=== PATIENT | female | born 1950 | race Caucasian/White ===

== ENCOUNTER → 2017-04-23 | Outpatient (CLI) | payer MEDICARE, MEDICAID ==
[~2017-04-23] MED LIST: FLUO40CA12; HEART BURN MED; HYDR-707 PO; HYOS0.1216 PO; LPRM1B120 PO; PRM25T PO; SYNTHROID
--- NOTE | 2017-04-23 20:26 | Diagnostic Imaging Report ---
Bilateral screening mammogram 2D views with tomosynthesis The current study was also evaluated with a Computer Aided Detection (CAD) system. Indication: Screening. No current complaints stated on the questionnaire. COMPARISON: 04/22/16 FINDINGS: The breasts are composed of scattered fibroglandular densities. There are occasional benign-appearing calcifications. Allowing for technique and positional differences, no suspicious change is seen. IMPRESSION: No significant change. ACR BI-RADS Category 2: Benign findings. Result letter will be mailed to the patient. Note: At least 10% of breast cancer is not imaged by mammography. Dictated by: Dictated on workstation # [id number]
== END ==
LOC: RAD 09:24
PROVIDERS: ATTEND Nurse Practitioner Community Health
DX: Z12.31 Encounter for screening mammogram for malignant neoplasm of breast (principal)
CPT/HCPCS: 77067

== ENCOUNTER → 2018-04-30 | Outpatient (CLI) | payer MEDICARE, MEDICAID ==
--- NOTE | 2018-04-30 19:54 | Diagnostic Imaging Report ---
Digital mammogram bilateral screening. This study was compared to the prior exams of 04/23/2017, 04/22/2016, and 04/19/2015. At this time, there are no current complaints. The current study was also evaluated with a Computer Aided Detection (CAD) system. 3-D tomosynthesis was also performed and reviewed. FINDINGS: There is a mild amount of fibroglandular tissue present in both breasts, similar to the prior exam. No primary or secondary sign of malignancy is noted. IMPRESSION: There is no radiographic evidence for malignancy. ACR BI-RADS Category 2: Benign findings. Result letter will be mailed to the patient. Note: At least 10% of breast cancer is not imaged by mammography. Dictated by: Dictated on workstation # [id number]
== END ==
LOC: RAD 09:52
PROVIDERS: ATTEND Nurse Practitioner Community Health
DX: Z12.31 Encounter for screening mammogram for malignant neoplasm of breast (principal)
CPT/HCPCS: 77067

== ENCOUNTER → 2018-12-02 | Outpatient (CLI) | payer MEDICARE, MEDICAID | LOC: WOUNDCARE 08:02 | PROVIDERS: ATTEND Nurse Practitioner | DX: L97.222 Non-pressure chronic ulcer of left calf with fat layer exposed (principal); I87.2 Venous insufficiency (chronic) (peripheral); L89.323 Pressure ulcer of left buttock, stage 3 | CPT/HCPCS: 87070; 87075; 87077; 87186; 87205; 99214 ==

== ENCOUNTER → 2018-12-09 | Outpatient (CLI) | payer MEDICARE, MEDICAID | LOC: WOUNDCARE 08:14 | PROVIDERS: ATTEND Nurse Practitioner | DX: L97.221 Non-pressure chronic ulcer of left calf limited to breakdown of skin (principal); L89.323 Pressure ulcer of left buttock, stage 3; I87.2 Venous insufficiency (chronic) (peripheral) | CPT/HCPCS: 97597 ==

== ENCOUNTER → 2018-12-16 | Outpatient (CLI) | payer MEDICARE, MEDICAID | LOC: WOUNDCARE 08:04 | PROVIDERS: ATTEND Nurse Practitioner | DX: L97.221 Non-pressure chronic ulcer of left calf limited to breakdown of skin (principal); L89.323 Pressure ulcer of left buttock, stage 3; I87.2 Venous insufficiency (chronic) (peripheral) | CPT/HCPCS: 99213 ==

== ENCOUNTER → 2018-12-23 | Outpatient (CLI) | payer MEDICARE, MEDICAID | LOC: WOUNDCARE 10:46 | PROVIDERS: ATTEND Nurse Practitioner | DX: L97.221 Non-pressure chronic ulcer of left calf limited to breakdown of skin (principal); L89.323 Pressure ulcer of left buttock, stage 3; I87.2 Venous insufficiency (chronic) (peripheral) | CPT/HCPCS: 99213 ==

== ENCOUNTER → 2018-12-30 | Outpatient (CLI) | payer MEDICARE, MEDICAID | LOC: WOUNDCARE 10:59 | PROVIDERS: ATTEND Nurse Practitioner | DX: L97.221 Non-pressure chronic ulcer of left calf limited to breakdown of skin (principal); L89.323 Pressure ulcer of left buttock, stage 3; I87.2 Venous insufficiency (chronic) (peripheral) | CPT/HCPCS: 99212 ==

== ENCOUNTER → 2019-03-22 | Outpatient (CLI) | payer MEDICARE, MEDICAID ==
--- NOTE | 2019-03-22 16:06 | Diagnostic Imaging Report ---
INDICATION: Postmenopausal screening COMPARISON: Baseline FINDINGS: AP Spine L1-L4: [BMD (g/cm2): 1.224] [T-Score: 0.2] [Z-Score: 0.7] [BMD Previous: na] [BMD % Change: na] LT Hip Neck: [BMD (g/cm2): 0.798] [T-Score: -1.7] [Z-Score: -0.9] LT Hip Total: [BMD (g/cm2):0.965] [T-Score:-0.3] [Z-Score: 0.2] [BMD Previous: na] [BMD % Change: na] RT Hip Neck: [BMD (g/cm2):0.819] [T-Score:-1.6] [Z-Score:-0.7] RT Hip Total: [BMD (g/cm2):0.876] [T-score:-1.0] [Z-Score:-0.5] [BMD Previous:na] [BMD % Change:na] *Indicates significant change from prior examination based on 95% confidence level. World Health Organization criteria for BMD interpretation classify patients as Normal (T-score at or above -1.0), Osteopenic (T-score between -1.0 and -2.5) or Osteoporotic (T-score at or below -2.5). LIMITATIONS AND MODIFICATION: None. FRACTURE RISK (FRAX SCORE): The ten year probability of (%): Major Osteoporotic Fracture: [9.2] Hip Fracture: [1.3] IMPRESSION: 1. Osteopenia (Low bone mass). 2. Baseline examination. 3. See below National Osteoporosis Foundation guidelines on when to potentially initiate pharmacologic therapy. Based on the National Osteoporosis Foundation Guidelines, pharmacologic treatment should be initiated in any of the following, unless clinical conditions suggest otherwise: * Any patient with prior fragility fracture of the hip or vertebrae. A spine fracture indicates 5X risk for subsequent spine fracture and 2X risk for subsequent hip fracture. * Osteoporosis (T-score <-2.5). * Postmenopausal women and men age 50 and older with low bone mass/osteopenia (T-score between -1.0 and -2.5) by DXA and 10-year major osteoporotic fracture greater than 20% or a 10-year probability of hip fracture greater than 3%. These fracture risks are supplied above in the FRAX score, if applicable. * Clinician judgement and/or patient preferences may indicate treatment for people with 10-year fracture probabilities above or below these levels. Dictated by: Dictated on workstation # [id number]
== END ==
LOC: RAD 10:55
PROVIDERS: ATTEND Nurse Practitioner Community Health
DX: Z13.820 Encounter for screening for osteoporosis (principal); N95.1 Menopausal and female climacteric states; M85.89 Other specified disorders of bone density and structure, multiple sites
CPT/HCPCS: 77080

== ENCOUNTER → 2019-05-13 | Outpatient (CLI) | payer MEDICARE, MEDICAID ==
--- NOTE | 2019-05-13 10:54 | Diagnostic Imaging Report ---
Indication: Routine screening. Comparison is made with prior mammogram from 04/30/2018 and 04/23/2017. 2-D and 3-D bilateral screening mammography was performed with CAD. Scattered fibroglandular densities are identified bilaterally. Benign calcifications are noted. No mass or malignant-appearing microcalcifications are seen. Axillae are unremarkable. IMPRESSION: BI-RADS Category 2 No mammographic features suspicious for malignancy are identified. ACR BI-RADS Category 2: Benign findings. Result letter will be mailed to the patient. Note: At least 10% of breast cancer is not imaged by mammography. Dictated by: Dictated on workstation # [id number]
== END ==
LOC: RAD 07:41
PROVIDERS: ATTEND Nurse Practitioner Community Health
DX: Z12.31 Encounter for screening mammogram for malignant neoplasm of breast (principal)
CPT/HCPCS: 77067

== ENCOUNTER → 2019-09-21 | Outpatient (CLI) | payer MEDICARE, MEDICAID ==
[~2019-09-21] MED LIST changes: +HOLD METFORMIN - RECEIVED CONTRAST 20 ML VIAL IV SCH; +IOHEXOL 350 MG/ML 100 ML (OMNIPAQUE 350) VIAL IV ONE; +NS 100 ML (IVPB) BAG IV ONE
--- NOTE | 2019-09-21 08:11 | Diagnostic Imaging Report ---
PROCEDURE: CT head with and without contrast. TECHNIQUE: Multiple contiguous axial images were obtained through the brain before and after the administration of intravenous contrast. Auto Exposure Controls were utilized during the CT exam to meet ALARA standards for radiation dose reduction. INDICATION: Dictated by: Dictated on workstation # [id number]
== END ==
LOC: RAD 06:33
PROVIDERS: ATTEND Nurse Practitioner Community Health
DX: F28 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 due to a substance or known physiological condition (principal); R29.6 Repeated falls
CPT/HCPCS: 36415; 70470; 82565

== ENCOUNTER 2020-02-16 07:18 | Outpatient (RCR) | payer MEDICARE, MEDICAID ==
[~2020-02-16] VITALS: Ht 165.1 cm; Wt 109.1 kg
[~2020-02-16 07:18] MED LIST changes: +FLUO10TA PO; -HOLD METFORMIN - RECEIVED CONTRAST 20 ML VIAL IV SCH; -IOHEXOL 350 MG/ML 100 ML (OMNIPAQUE 350) VIAL IV ONE; +LEVO112T55 PO; +LOVA20TA2 PO; -NS 100 ML (IVPB) BAG IV ONE; +OMEP20CA18 PO; +TRZ50T PO
== END 2020-02-16 10:34 | disposition home or self-care (01) ==
LOC: PREOP 07:18
PROVIDERS: ATTEND Surgery
DX: Z01.812 Encounter for preprocedural laboratory examination (principal); R13.10 Dysphagia, unspecified; Z20.828 Contact with and (suspected) exposure to other viral communicable diseases
CPT/HCPCS: 87635

== ENCOUNTER 2020-02-21 10:12 | Day surgery (SDC) | payer MEDICARE, MEDICAID ==
[~2020-02-21] VITALS: Ht 165.1 cm; Wt 109.1 kg
[2020-02-21] MEDS ORDERED: LACTATED RINGERS 1,000 ML IV STA (10:20)
[2020-02-21] MEDS ORDERED: LACTATED RINGERS 1,000 ML IV ONE (10:25)
[2020-02-21 10:27] VITALS: BP 140/83
[2020-02-21] MEDS ORDERED: HURRICAINE EXT TUBE (BENZOCAINE) XX PRN (10:30)
--- NOTE | 2020-02-21 10:54 | Progress Note-Pre Operative ---
Pre-Operative Progress Note H&P Reviewed The H&P was reviewed, patient examined and no changes noted. Date Seen by Provider: Feb 21, 2020 Time Seen by Provider: 10:54 Date H&P Reviewed: Feb 21, 2020 Time H&P Reviewed: 10:54 Pre-Operative Diagnosis: dysphagia KRAIG PALOMO DO Feb 21, 2020 10:54
--- OUTSIDE RECORDS SUMMARY | 2020-02-21 11:41 | XMS REPORT ---
Author Author [facility] Address [address] [address] Care Team Providers Care Senior Reservoir Engineer Name Role Phone CHARLOTTE STANLEY Unavailable Unavailable DELROY, ROMA Unavailable Unavailable SALINA, ALONZO Unavailable Unavailable MICHAELA WAYEN Unavailable Unavailable BOLIVAR HOOPER Unavailable Unavailable DELROY, ROMA Unavailable DELROY, ROMA Unavailable DELROY, ROMA Unavailable DELROY, ROMA Unavailable DELROY, ROMA Unavailable KENNETH [place] Unavailable SALINA, ALONZO Unavailable DELROY, ROMA Unavailable DELROY, ROMA Unavailable DELROY, ROMA Unavailable DELROY, ROMA Unavailable SALINA, ALONZO Unavailable DELROY, ROMA Unavailable DELROY, ROMA Unavailable DELROY, ROMA Unavailable DELROY, ROMA Unavailable DELROY, ROMA Unavailable SALINA, ALONZO Unavailable DELROY, ROMA Unavailable DELROY, ROMA Unavailable SALINA, ALONZO Unavailable DELROY, ROMA Unavailable Migration, Doctor Unavailable Unavailable DELROY, ROMA S Unavailable Unavailable DELROY, ROMA CULINARY WORKER Unavailable Unavailable JAY HOOPER LAST SAWYER Unavailable Unavailable STANLEY PORTER CULINARY WORKER Unavailable Unavailable DELROY, ROMA Unavailable DELROY, ROMA Unavailable Migration, Doctor Unavailable Unavailable Migration, Doctor Unavailable Unavailable DELROY, ROMA Unavailable DELROY, ROMA Unavailable DELROY, ROMA Unavailable DELROY, ROMA Unavailable DELROY, ROMA Unavailable DELROY, ROMA Unavailable DELROY, ROMA Unavailable DELROY, ROMA Unavailable DELROY, ROMA Unavailable DELROY CULINARY WORKER, ROMA Unavailable Unavailable DELROY, ROMA Unavailable Unavailable Unavailable DELROY, ROMA Unavailable DELROY, ROMA Unavailable DELROY, ROMA Unavailable DELROY, ROMA Unavailable Migration, Doctor Unavailable Unavailable DELROY, ROMA Unavailable DELROY, ROMA Unavailable DELROY, ROMA Unavailable DELROY, ROMA Unavailable DELROY, ROMA Unavailable DELROY, ROMA Unavailable Migration, Doctor Unavailable Unavailable Migration, Doctor Unavailable Unavailable zzHEIMAN, ARIELLA Unavailable zzHEIMAN, ARIELLA Unavailable KRAIG PALOMO DO Unavailable Unavailable DELROY, ROMA Unavailable DELROY, ROMA Unavailable Unavailable Unavailable Unavailable Unavailable Unavailable Unavailable Unavailable Unavailable Unavailable Unavailable Allergies The data below is from unstructured sourcesNo Known Allergies No Known Allergies No Known Allergies No Known Allergies No Known Allergies No Known Allergies No Known Allergies No Known Allergies No Known Allergies No Known Allergies No Known Allergies No Known Allergies No Known Allergies No Known Allergies No Known Allergies No Known Allergies No Known Allergies No Known Allergies No Known Allergies No Known Allergies No Known Allergies No Known Allergies No Known Allergies Unknown Allergies Unknown Allergies No Information No Information No Information No Information No Information No Information No Information No Information No Information No Information No Information No Information No Information No Information No Information No Information No Information No Information No Information No Information No Information No Information No Information No Information No Information No Information No Information No Information No Information No Information No Information No Information No Information No Information No Information No Information No Information No Information No Information No Information No Information No Information No Information No Information No Information No Information No Information No Information No Information No Information No Information No Information No Information No Information No Information No Information Encounters Encounter Date Encounter Type Encounter Diagnosis Care Provider Facility Start: Patient encounter KRAIG BAUMANNBAR DO [facility] 02-16-2020 [facility] End: 02-16-2020 Start: Patient encounter KRAIG Mccoy PALOMO DO [facility] 02-15-2020 [facility] Start: Patient encounter KRAIG Mccoy PALOMO DO [facility] 02-14-2020 [facility]: [facility]: [facility]2019 [facility]: [facility] 10-13[facility]2019 [facility] Start: [facility] 10-06-2019 [facility]: [facility] Start: Patient encounter ROMA POTTS [facility] 09-21-2019 procedure [facility] Start: Patient encounter ROMA POTTS [facility] 09-14-2019 procedure [facility] Start: Patient encounter GREGORIA KINNEY [facility] 09-07-2019 [facility] Start: Patient encounter ROMA POTTS [facility] 05-23-2019 procedure [facility] ([id number]) Start: Patient encounter ROMA POTTS [facility] 05-19-2019 procedure [facility] ([id number]) Start: Patient encounter ROMA POTTS [facility] 05-16-2019 [facility] ([id number]) Start: Patient encounter ROMA POTTS [facility] 05-13-2019 procedure [facility] ([id number]) Start: Patient encounter ROMA POTTS [facility] 05-11-2019 procedure [facility] ([id number]) Start: Patient encounter ROMA ALANIZAN [facility] 03-22-2019 procedure [facility] ([id number]) Start: Patient encounter ROMA DELROY [facility] 03-22-2019 procedure [facility] ([id number]) Start: Patient encounter ROMA POTTS [facility] 02-24-2019 procedure [facility] ([id number]) Start: Patient encounter ROMA POTTS [facility] 01-26-2019 procedure [facility] ([id number]) Start: Patient encounter JAY SANDIE [facility] 12-30-2018 procedure [facility] ([id number]) Start: Patient encounter JAY SANDIE [facility] 12-30-2018 procedure [facility] ([id number]) Start: Patient encounter JAY SANDIE [facility] 12-23-2018 procedure [facility] ([id number]) Start: Patient encounter JAY SANDIE [facility] 12-16-2018 procedure [facility] ([id number]) Start: Patient encounter JAY SANDIE [facility] 12-16-2018 procedure [facility] ([id number]) Start: Patient encounter JAY SANDIE [facility] 12-09-2018 procedure [facility] ([id number]) Start: Patient encounter JAY SANDIE [facility] 12-09-2018 procedure [facility] ([id number]) Start: Patient encounter JAY SANDIE [facility] 12-02-2018 procedure [facility] ([id number]) Start: Patient encounter JAY SANDIE [facility] 12-02-2018 procedure [facility] ([id number]) Start: Patient encounter ROMA DELROY [facility] 12-01-2018 procedure [facility] ([id number]) Start: Patient encounter ROMA DELROY [facility] 11-29-2018 procedure [facility] ([id number]) Start: Patient encounter ROMA DELROY [facility] 11-24-2018 procedure [facility] ([id number]) Start: Patient encounter ROMA DELROY [facility] 11-22-2018 procedure [facility] ([id number]) Start: Patient encounter ROMA DELROY [facility] 11-15-2018 procedure [facility] ([id number]) Start: Patient encounter ROMA DELROY [facility] 11-08-2018 procedure [facility] ([id number]) Start: Patient encounter ROMA DELROY [facility] 11-05-2018 procedure [facility] ([id number]) Start: Patient encounter ROMA DELROY [facility] 11-03-2018 procedure [facility] ([id number]) Start: Patient encounter ROMA DELROY [facility] 10-28-2018 procedure [facility] ([id number]) Start: Patient encounter ROMA DELROY [facility] 10-27-2018 procedure [facility] ([id number]) Start: Patient encounter ROMA DELROY [facility] 10-25-2018 procedure [facility] ([id number]) Start: Patient encounter ROMA DELROY [facility] 10-22-2018 procedure [facility] ([id number]) Start: Patient encounter ROMA POTTS [facility] 10-20-2018 procedure [facility] (51869) Start: Patient encounter ROMA POTTS [facility] 10-13-2018 procedure [facility] ([id number]) Start: Patient encounter ROMA POTTS [facility] 10-11-2018 procedure [facility] ([id number]) Start: Patient encounter ROMA POTTS [facility] 10-08-2018 procedure [facility] ([id number]) Start: Patient encounter ROMA POTTS [facility] 10-06-2018 procedure [facility] ([id number]) Start: Patient encounter ROMA POTTS [facility] 09-27-2018 procedure [facility] ([id number]) Start: Patient encounter ROMA POTTS [facility] 09-15-2018 procedure [facility] ([id number]) Start: Patient encounter ROMA POTTS [facility] 07-01-2018 procedure [facility] ([id number]) Start: Patient encounter 04-30-2018 procedure Start: Patient encounter 03-10-2018 procedure Start: Patient encounter NA NA Not [facility] ([id number]) 03-03-2018 procedure Start: Patient encounter 01-12-2018 procedure Start: Patient encounter ROMA POTTS [facility] 12-31-2017 procedure [facility] ([id number]) Start: Patient encounter NA NA [facility] 11-09-2017 procedure [facility] (92553) Start: Patient encounter ROMA POTTS [facility] 09-10-2017 procedure [facility] ([id number]) Start: Patient encounter ROMA POTTS Not [facility] ([id number]) 04-23-2017 procedure Start: Patient encounter STANLEY PORTER Not [facility]ail able ([id number]) 04-22-2016 procedure Start: Patient encounter ROMA DELROY Not [facility] ([id number]) 04-19-2015 procedure Start: Patient encounter ROMAANTOLIN ALANIZAN Not [facility] ([id number]) 04-05-2014 procedure Start: Patient encounter ARIELLA ANDUJAR Not [facility] ([id number]) 03-02-2013 procedure Patient encounter NA NA Not Available (0000 0) procedure Encounter for KRAIG PALOMO DO [facility] laboratory ([id number]) examination Medical Equipment No Information Goals No Information Immunizations Immunizatio Immunization Notes Care Provider Facility n Date 05-09-2019 influenza, seasonal, NA NA [facility] ([id number]) 04-26-2018 influenza, seasonal, [facility] DELROY [facility] Other Phone: [facility] ([id number]) 04-26-2018 pneumococcal NA NA Not Available ( 95825) polysaccharide vaccine, 23 valent ; Translations: [PPSV23 (PNEUMOVAX)] 04-26-2018 influenza, injectable, NA NA [facility] quadrivalent, [facility] - preservative free ; [facility] Translations: (88972) [IMMUNIZATION ADMIN, EACH ADD (please include units)] 05-12-2017 influenza, injectable, NA NA Not Av ail[facility] (87590) quadrivalent, preservative free Interventions No Information Medications Medication Drug Dates Sig Sig (Original) Class(es) (Normalized) mupirocin 0.02 mg/mg RNA Start: Mupirocin 2 % Externally Once a day 4 topical ointment Synthetase 09-27-2018 grm to affect ed area 24h Sep, 7 (2 sources) Inhibitor days Active Antibacter ial Payers No Information Plan of Treatment Date Care Activity Detail Author Start: [facility] 10-13-2019 Start: [facility] 02-24-2019 Start: [facility] 10-28-2018 Start: [facility] 07-01-2018 Problems Problem Problem Date Last Documented Episodic/Chr Provider Classificati Recorded Date onic on Other bone Other specified disorders of bone Episodic ROMA disease and density and structure, multiple CHERYL NNAN musculoskele sites geno deformities (3 sources) Other Venous insufficiency (chronic) Episodic JAY diseases of (peripheral) SANDIE veins and lymphatics (16 sources) Other Dysphagia, unspecified 02-20-2020 Episodic CHERYL TT PALOMO gastrointest DO inal disorders (1 source) Procedures Date Procedure Procedure Detail Performing Cl inician Start: [facility] visit, estab ROMA POTTS 10-20-2018 pt Other Phone: Start: [facility] visit, estab ROMA POTTS 10-06-2018 pt Other Phone: Start: [facility] visit, estab ROMA POTTS 09-15-2018 pt Other Phone: Start: [facility] visit, estab ALONZO DOWNING 07-01-2018 pt Other Phone: Start: Admin pneumococcal ROMA POTTS 04-26-2018 vaccine Other Phone: Start: [facility] visit, estab ROMA POTTS 04-26-2018 pt Other Phone: Start: [facility] visit, ronna DOWNING 04-01-2018 pt Other Phone: Start: Collection venous ROMA POTTS 03-10-2018 blood venipuncture Other Start: LAB NOT BILLED BY ROMA POTTS 03-10-2018 [facility] Other Phone: Start: [facility] visit, estab ROMA POTTS 03-03-2018 pt Other Phone: Results Test Name Value Interpreta Reference Facilit Date tion Range y Time laboratory on 2020-02-16 Coronavirus Ab Qn Negative Invalid Negative PENDING 02-15 (S) Interpreta LOCATIO 020 tion Code N [facility] 04:00-0 ([id number]) 400 laboratory on 2020-01-11 Albumin [Mass/Vol] 3.7 g/dL Normal 3.6-5.1 Communi g/dL [facility] ([id number]) Albumin/Globulin 1.1 {ratio} Normal 1.0-2.5 Communi [Mass ratio] (calc) [facility] (12552) ALP [Catalytic 106 U/L Normal 37-153 U/L Communi activity/Vol] [facility] (35531) ALT [Catalytic 9 U/L Normal 6-29 U/L Communi activity/Vol] [facility] (47915) AST [Catalytic 19 U/L Normal 10-35 U/L Communi activity/Vol] [facility] (61824) Bilirubin [Mass/Vol] 0.5 mg/dL Normal 0.2-1.2 Commu ni mg/dL [facility] (92290) Calcium [Mass/Vol] 9.4 mg/dL Normal 8.6-10.4 Communi mg/dL [facility] (32420) Chloride [Moles/Vol] 100 mmol/L Normal 98-110 Commu ni mmol/L [facility] (12632) Cholesterol 158 mg/dL Normal <200 mg/dL Communi [Mass/Vol] [facility] (67829) Cholesterol in HDL 36 mg/dL Low > OR = 50 Communi [Mass/Vol] mg/dL [facility] (01883) Cholesterol in LDL 105 mg/dL High mg/dL Communi [Mass/Vol] (calc) [facility] (76079) Cholesterol non HDL 122 mg/dL Normal <130 mg/dL Commun i [Mass/Vol] (calc) [facility] (67725) Cholesterol.total/Ch 4.4 {ratio} Normal <5.0 Commu ni olesterol in HDL (calc) ty [Mass ratio] [facility] (99438) CO2 [Moles/Vol] 31 mmol/L Normal 20-32 Communi mmol/L [facility] (74680) Creatinine 0.73 mg/dL Normal 0.50-0.99 Communi [Mass/Vol] mg/dL [facility] (20764) GFR/1.73 sq 97 mL/min/{1.73_m2} Normal > OR = 60 Commun i M.predicted among mL/min/1.7 ty blacks MDRD 3m2 Health (S/P/Bld) [Vol Center rate/Area] [facility] (15275) GFR/1.73 sq 84 mL/min/{1.73_m2} Normal > OR = 60 Commun i M.predicted MDRD mL/min/1.7 ty (S/P/Bld) [Vol 3m2 Health rate/Area] [facility] (98106) Globulin (S) 3.4 g/dL Normal 1.9-3.7 Communi [Mass/Vol] g/dL ty (calc) [facility] (79048) Glucose [Mass/Vol] 86 mg/dL Normal 65-99 Communi mg/dL ty [facility] (14148) Potassium 4.1 mmol/L Normal 3.5-5.3 Communi [Moles/Vol] mmol/L ty [facility] (52456) Protein [Mass/Vol] 7.1 g/dL Normal 6.1-8.1 Communi g/dL ty [facility] (89654) Sodium [Moles/Vol] 139 mmol/L Normal 135-146 Communi mmol/L ty [facility] (37230) Triglyceride 81 mg/dL Normal <150 mg/dL Communi [Mass/Vol] ty [facility] (41023) Urea nitrogen 13 mg/dL Normal 7-25 mg/dL Communi [Mass/Vol] ty [facility] (61930) Urea NOT APPLICABLE Invalid 6-22 Communi nitrogen/Creatinine Interpreta (calc) ty [Mass ratio] tion Code [facility] (43324) laboratory on 2019-09-07 TSH Qn 4.06 m[IU]/L Normal 0.40-4.50 Communi mIU/L ty [facility] (73264) laboratory on 2019-01-26 Albumin [Mass/Vol] 3.7 g/dL Normal 3.6-5.1 Communi g/dL ty [facility] (56156) Albumin/Globulin 1.1 {ratio} Normal 1.0-2.5 Communi [Mass ratio] (calc) ty [facility] (71110) ALP [Catalytic 87 U/L Normal 33-130 U/L Communi activity/Vol] [facility] (81834) ALT [Catalytic 9 U/L Normal 6-29 U/L Communi activity/Vol] [facility] (76408) AST [Catalytic 21 U/L Normal 10-35 U/L Communi activity/Vol] ty [facility] (48875) Bilirubin [Mass/Vol] 0.5 mg/dL Normal 0.2-1.2 Commu ni mg/dL [facility] (26199) Calcium [Mass/Vol] 8.9 mg/dL Normal 8.6-10.4 Communi mg/dL [facility] (22730) Chloride [Moles/Vol] 102 mmol/L Normal 98-110 Commu ni mmol/L [facility] (15446) Cholesterol 154 mg/dL Normal <200 mg/dL Communi [Mass/Vol] ty [facility] (92650) Cholesterol in HDL 38 mg/dL Low >50 mg/dL Communi [Mass/Vol] [facility] (84371) Cholesterol in LDL 101 mg/dL High mg/dL Communi [Mass/Vol] (calc) [facility] (13531) Cholesterol non HDL 116 mg/dL Normal <130 mg/dL Commun i [Mass/Vol] (calc) [facility] (58919) Cholesterol.total/Ch 4.1 {ratio} Normal <5.0 Commu ni olesterol in HDL (calc) ty [Mass ratio] [facility] (86550) CO2 [Moles/Vol] 33 mmol/L High 20-32 Communi mmol/L [facility] (41531) Creatinine 0.85 mg/dL Normal 0.50-0.99 Communi [Mass/Vol] mg/dL [facility] (62264) GFR/1.73 sq 82 mL/min/{1.73_m2} Normal > OR = 60 Commun i M.predicted among mL/min/1.7 ty blacks MDRD 2 Health (S/P/Bld) [Vol [place] rate/Area] [facility] (82634) GFR/1.73 sq 70 mL/min/{1.73_m2} Normal > OR = 60 Commun i M.predicted MDRD mL/min/1.7 ty (S/P/Bld) [Vol 2 Health rate/Area] [facility] (07375) Globulin (S) 3.3 g/dL Normal 1.9-3.7 Communi [Mass/Vol] g/dL ty (calc) [facility] (85680) Glucose [Mass/Vol] 94 mg/dL Normal 65-99 Communi mg/dL ty [facility] (73500) Potassium 4.1 mmol/L Normal 3.5-5.3 Communi [Moles/Vol] mmol/L ty [facility] (61025) Protein [Mass/Vol] 7.0 g/dL Normal 6.1-8.1 Communi g/dL ty [facility] (93063) Sodium [Moles/Vol] 139 mmol/L Normal 135-146 Communi mmol/L ty [facility] (53590) Triglyceride 67 mg/dL Normal <150 mg/dL Communi [Mass/Vol] ty [facility] (50225) Urea nitrogen 12 mg/dL Normal 7-25 mg/dL Communi [Mass/Vol] ty [facility] (41553) Urea NOT APPLICABLE Invalid 6-22 Communi nitrogen/Creatinine Interpreta (calc) [facility] on 2018-12-01 Bacteria identified SEE NOTE Abnormal Communi Aer cx Nom (Unsp ty spec) [facility] (30287) Bacteria identified SEE NOTE Invalid Communi Anaer cx Nom (Unsp Interpreta ty spec) [facility] (85466[facility] laboratory on 2017-11-09 Albumin [Mass/Vol] 4.0 g/dL Normal 3.6-5.1 Communi g/dL [facility] (37460) Albumin/Globulin 1.2 {ratio} Normal 1.0-2.5 Communi [Mass ratio] (calc) [facility] (41069) ALP [Catalytic 94 U/L Normal 33-130 U/L Communi activity/Vol] [facility] (78259) ALT [Catalytic 10 U/L Normal 6-29 U/L Communi activity/Vol] [facility] (88279) AST [Catalytic 20 U/L Normal 10-35 U/L Communi activity/Vol] [facility] (83315) Basophils (Bld) 0.048 10*3/uL Normal 0-200 Not [#/Vol] cells/uL [facility] (37582) Basophils/100 WBC 0.7 % Normal % Not (Bld) [facility] (31789) Bilirubin [Mass/Vol] 0.5 mg/dL Normal 0.2-1.2 Commu ni mg/dL [facility] (86973) Calcium [Mass/Vol] 9.0 mg/dL Normal 8.6-10.4 Communi mg/dL [facility] (89629) Chloride [Moles/Vol] 100 mmol/L Normal 98-110 Commu ni mmol/L [facility] (08725) Cholesterol 137 mg/dL Normal <200 mg/dL Not [Mass/Vol] [facility] (19140) Cholesterol in HDL 35 mg/dL Low >50 mg/dL Not [Mass/Vol] [facility] (01531) Cholesterol in LDL 87 mg/dL Normal mg/dL Not [Mass/Vol] (calc) [facility] (39060) Cholesterol non HDL 102 mg/dL Normal <130 mg/dL Not [Mass/Vol] (calc) [facility] (75360) Cholesterol.total/Ch 3.9 {ratio} Normal <5.0 Not olesterol in HDL (calc) [facility] [Mass ratio] le (61676) CO2 [Moles/Vol] 32 mmol/L High 20-31 Communi mmol/L [facility] (13643) Creatinine 0.84 mg/dL Normal 0.50-0.99 Communi [Mass/Vol] mg/dL ty [facility] (43065) Eosinophils (Bld) 0.184 10*3/uL Normal 15-500 Not [#/Vol] cells/uL [facility] (19500) Eosinophils/100 WBC 2.7 % Normal % Not (Bld) [facility] (49038) Erythrocyte 11.8 % Normal 11.0-15.0 Not distribution width % [facility]ail[facility] (RBC) [Ratio] le (56035) GFR/1.73 sq 83 mL/min/{1.73_m2} Normal > OR = 60 Commun i M.predicted among mL/min/1.7 ty blacks MDRD 3m2 Health (S/P/Bld) [Vol Center rate/Area] [facility] (67577) GFR/1.73 sq 72 mL/min/{1.73_m2} Normal > OR = 60 Commun i M.predicted MDRD mL/min/1.7 ty (S/P/Bld) [Vol 3m2 Health rate/Area] [facility] (05899) Globulin (S) 3.3 g/dL Normal 1.9-3.7 Communi [Mass/Vol] g/dL ty (calc) [facility] (04219) Glucose [Mass/Vol] 99 mg/dL Normal 65-99 Communi mg/dL ty [facility] (78311) Hematocrit (Bld) 40.2 % Normal 35.0-45.0 Not [Volume fraction] % [facility] (35006) Hemoglobin (Bld) 12.8 g/dL Normal 11.7-15.5 Not [Mass/Vol] g/dL [facility] (76864) Lymphocytes (Bld) 2.04 10*3/uL Normal 850-3900 Not [#/Vol] cells/uL [facility] (66526) Lymphocytes/100 WBC 30.0 % Normal % Not (Bld) [facility] (03010) MCH (RBC) [Entitic 30.1 pg Normal 27.0-33.0 Not mass] pg [facility] (44711) MCHC (RBC) 31.8 g/dL Low 32.0-36.0 Not [Mass/Vol] g/dL [facility] (06506) MCV (RBC) [Entitic 94.6 fL Normal 80.0-100.0 Not vol] fL [facility] (62090) Monocytes (Bld) 0.381 10*3/uL Normal 200-950 Not [#/Vol] cells/uL [facility] (50427) Monocytes/100 WBC 5.6 % Normal % Not (Bld) [facility] (04971) Neutrophils (Bld) 4.148 10*3/uL Normal 6754-0989 Not [#/Vol] cells/uL [facility] (91818) Neutrophils/100 WBC 61 % Normal % Not (Bld) [facility] (55872) Platelet mean volume 12.1 fL Normal 7.5-12.5 Not (Bld) [Entitic vol] fL [facility] (86227) Platelets (Bld) 205 10*3/uL Normal 140-400 Not [#/Vol] Thousand/u [facility] ([id number]) Potassium 4.0 mmol/L Normal 3.5-5.3 Communi [Moles/Vol] mmol/L ty [facility] ([id number]) Protein [Mass/Vol] 7.3 g/dL Normal 6.1-8.1 Communi g/dL ty [facility] ([id number]) RBC (Bld) [#/Vol] 4.25 10*6/uL Normal 3.80-5.10 Not Million/uL [facility] ([id number]) Sodium [Moles/Vol] 141 mmol/L Normal 135-146 Communi mmol/L ty [facility] (74660) Triglyceride 68 mg/dL Normal <150 mg/dL Not [Mass/Vol] [facility]ail[facility] (25801) TSH Qn 4.77 m[IU]/L High 0.40-4.50 Not mIU/L [facility]ail[facility] (24225) Urea nitrogen 10 mg/dL Normal 7-25 mg/dL Communi [Mass/Vol] ty [facility] ([id number]) Urea NOT APPLICABLE Invalid 6-22 Communi nitrogen/Creatinine Interpreta (calc) ty [Mass ratio] tion Code [facility] ([id number]) WBC (Bld) [#/Vol] 6.8 10*3/uL Normal 3.8-10.8 Not Thousand/u [facility] (68153) laboratory on 2017-03-07 TSH Qn 2.270 Invalid 0.450-4.50 Not Interpreta 0 uIU/mL Avail[facility] 017 tion Code le 08:22-0 (61767) 400 laboratory on 2016-11-29 Cholesterol 139 mg/dL Invalid 100-199 Not [Mass/Vol] Interpreta mg/dL Avail[facility] 017 tion Code le 10:16-0 (52534) 400 Cholesterol in HDL 34 mg/dL Low >39 mg/dL Not 11-02 9-2 [Mass/Vol] Availab 017 le 10:16-0 (91454) 400 Cholesterol in LDL 94 mg/dL Invalid 0-99 mg/dL Not [Mass/Vol] Interpreta Availab 017 tion Code le 10:16-0 (54890) 400 Cholesterol in VLDL 11 mg/dL Invalid 5-40 mg/dL Not [Mass/Vol] Interpreta Availab 017 tion Code le 10:16-0 (99124) 400 Triglyceride 57 mg/dL Invalid 0-149 Not [Mass/Vol] Interpreta mg/dL Availab 017 tion Code le 10:16-0 (11452) 400 Social History No Information Vital Signs Date Time Vital Sign Value Performing Clinician Facil ity 10-20-2018 Body height 165.1 cm [facility] 16:20-0400 Other Phone: [facility] [place] () 10-20-2018 Body mass index 40.35 kg/m2 [facility] 16:20-0400 (BMI) [Ratio] Other Phone: [facility] [place] () 10-20-2018 Body temperature 98.3 [degF] [facility] 16:20-0400 Other Phone: [facility] [place] ([id number]) 10-20-2018 Body weight 110 kg [facility] 16:20-0400 Other Phone: [facility] [place] ([id number]) 10-20-2018 SaO2% (BldA) [Mass 100 % ROMA POTTS [facility] 16:20-0400 fraction] Other Phone: [facility] [place] ([id number]) 10-06-2018 Body height 165.1 cm ROMA DELROY [facility] ealt 13:20-0500 Other Phone: [facility] [place] ([id number]) 10-06-2018 Body mass index 40.63 kg/m2 [facility] 13:20-0500 (BMI) [Ratio] Other Phone: [facility] [place] ([id number]) 10-06-2018 Body temperature 97.8 [degF] ROMA POTTS [facility] Health 13:20-0500 Other Phone: [facility] [phone] [place] [address] ([id number]) 10-06-2018 Body weight 110.77 kg ROMA POTTS [facility] ealt 13:20-0500 Other Phone: [facility] [place] ([id number]) 09-15-2018 Body height 165.1 cm ROMA DELROY [facility]alt 16:20-0500 Other Phone: [facility] [phone] [place] [address] ([id number]) 09-15-2018 Body mass index 40.08 kg/m2 ROMAMaría POTTS [facility] 16:20-0500 (BMI) [Ratio] Other Phone: [facility] [place] ([id number]) 09-15-2018 Body temperature 97.8 [degF] ROMA DELROY [facility] 16:20-0500 Other Phone: [facility] [place] ([id number]) 09-15-2018 Body weight 109.27 kg ROMA POTTS [facility] 16:20-0500 Other Phone: [facility] [place] ([id number]) 09-15-2018 SaO2% (BldA) [Mass 98 % [facility] 16:20-0500 fraction] Other Phone: [facility] [place] ([id number]) 07-01-2018 Body height 165.1 cm [facility] 11:20-0500 Other Phone: [facility] [place] ([id number]) 07-01-2018 Body mass index 39.37 kg/m2 [facility] [employer] 11:20-0500 (BMI) [Ratio] Other Phone: [facility] [place] ([id number]) 07-01-2018 Body weight 107.32 kg [facility] 11:20-0500 Other Phone: [facility] [place] ([id number]) 04-26-2018 Body height 165.1 cm [facility] ealt 15:00-0400 Other Phone: [facility] [place] ([id number]) 04-26-2018 Body mass index 38.99 kg/m2 [facility] 15:00-0400 (BMI) [Ratio] Other Phone: [facility] [place] ([id number]) 04-26-2018 Body temperature 98 [degF] [facility] 15:00-0400 Other Phone: [facility] [place] ([id number]) 04-26-2018 Body weight 106.28 kg [facility]alt 15:00-0400 Other Phone: [facility] [place] ([id number]) 04-01-2018 Body height 165.1 cm [facility] 14:40-0400 Other Phone: [facility] [place] ([id number]) 04-01-2018 Body mass index 40.53 kg/m2 [facility] ([employer] 14:40-0400 (BMI) [Ratio] Other Phone: [facility] [place] ([id number]) 04-01-2018 Body weight 110.5 kg [facility] 14:40-0400 Other Phone: [facility] [place] (07652) 03-03-2018 Body height 165.1 cm [facility] 16:400400 Other Phone: [facility] [place] ([id number]) 03-03-2018 Body mass index 39.9 kg/m2 [facility] 16:40-0400 (BMI) [Ratio] Other Phone: [facility] [place] ([id number]) 03-03-2018 Body weight 108.77 kg [facility] 16:40-0400 Other Phone: [facility] [place] ([id number]) Functional Status No Information Mental Status No Information Clinical Note Note Date & Note Facility Type Note NAME: CAROLE STEINBERG ~MED REC#: [id number] ~ACCOUNT#: PENDING LOCATION [facility] [id number] ~CARE PROVIDER: KRAIG PALOMO DO ~Pre-O perative ([id number]) Progress Note ~H P Reviewed ~The H P wa s reviewed, patient examined and no changes noted. ~Date Se en by Provider: Feb 21, 2020 ~Time Seen by Provider: 10:54 ~Major e H P Reviewed: Feb 21, 2020 ~Time H P Reviewed: 10:54 ~Pre-Ope rative Diagnosis: dysphagia ~ ~ ~ ~KRAIG PALOMO DO Feb 21, 2020 1 0:54 ~ ~ ~<Created by KRAIG PALOMO DO> ~<Electronically signed by KRAIG PALOMO DO> 02/21/20 1054 ~ ~ Summary Purpose eClinicalWorks SubmissioneClinicalWorks SubmissioneClinicalWorks SubmissioneClinicalWorks SubmissioneClinicalWorks SubmissioneClinicalWorks SubmissioneClinicalWorks SubmissioneClinicalWorks SubmissioneClinicalWorks SubmissioneClinicalWorks SubmissioneClinicalWorks SubmissioneClinicalWorks SubmissioneClinicalWorks SubmissioneClinicalWorks SubmissioneClinicalWorks SubmissioneClinicalWorks SubmissioneClinicalWorks SubmissioneClinicalWorks Submission Additional Source Comments This clinical document has been generated using [employer] software that has been certified by the Office of the National Coordinator for Health Information Technology (ONC 15.99.04.3023.Diam.31.00.0.083852) and the National Committee for Airline Pilot/First Officer (NCQA, as an eMeasure certified technology). FOR RECORDS PERTAINING TO PATIENTS WHO ARE OR HAVE BEEN ENROLLED IN A CHEMICAL D EPENDENCY/SUBSTANCE ABUSE PROGRAM, SOME INFORMATION MAY BE OMITTED. This clinica l summary was aggregated from multiple sources. Caution should be exercised in using it in the provision of clinical care. This summary normalizes information from multiple sources, and as a consequence, information in this document may ma terially change the coding, format and clinical context of patient data. In rocio tion, data may be omitted in some cases. CLINICAL DECISIONS SHOULD BE BASED ON T HE PRIMARY CLINICAL RECORDS. [employer] provides no warranty or guara ntee of the accuracy or completeness of information in this document.The followi information is based on time limited clinical information UNRECOGNIZED CONTENT PROVIDED BELOW FOR UNRECOGNIZED SECTION REASON FOR VISIT Lab resultsKnee pain Pt having Rt knee pain for several months, has had some imp rovement, but has had pain off and on since last snow, also having heartburn for several weeks (3-4) [facility] (walk-in) f/u Neri RequestElizabethua l physical (female) -pt would like flu shot --[facility] Cr f/u-Erasmo, Depr ession / history of psychosisleg c/o Pt has rash on inner thigh states she has h ad rash for a couple weeks and it dale [facility] dressing, cleans ed pressure ulcer on right inner thigh, right along the underwear line, area loo ks smaller in comparison to thursday, slight maceration on wound edges, instruc abbe pt to try to keep area dry. placed silvadine over wound, dressed with a sili cone dressing to cover the wound. Instructed pt to come back on Thursday as previo usly instructed by provider, pt voiced understanding- Simba Tripathi pain Pt c /o place on back of leg that hurts, states it dale when she sits down Yolanda [id number]-NhfTUM-Olohrrrh dressing- removed old dressing from right inner thigh, simeon ansed the area with ns and gauze, placed silvadine on the wound and covered with a silicone bandage. told pt to return on Thursday- Simba Pablo RNWound check- Woun d on right inner thigh is now closed with pink tissue, area no longer white, pt state it is no longer painful. heidi Miranda continue with silvadine and silicone d ressing, pt will come back on Thursday for another wound check, Gómez alarcon se nt to via [employer]- Simba Pablo RNwound check- wound has not change d, appears the same. Jairo suggested putting Calcium alginate on the wound then p lacing the silicone dressing over that, told pt to come back on Thursday- Simba chacon RNcontinued leg pain Pt has a spot on inner thigh that still is not healing Sivakumar Blackmon MA
--- OUTSIDE RECORDS SUMMARY | 2020-02-21 11:42 | XMS REPORT ---
Author Author Tarik Logan Doctor Organization [facility] Address Unknown Phone Unavailable Care Team Providers Care Research Archaeologist Name Role Phone Migration, Doctor Unavailable Unavailable PROBLEMS Type Condition ICD9-CM Code [id number] Code Onset Dates Condition S tatus SNOMED Code Problem Osteopenia after menopause M81.0 Act mode 192331932 Problem Acquired hypothyroidism E03.9 Active 210864355 Problem Hearing loss of both ears H91.93 Acti ve 48809398 Problem Depression, major, 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 Active 18242330 Problem Pressure injury of left buttock, stage 2 L89.322 Active 725178528 Problem Hyperlipidemia, unspecified hyperlipidemia type E7 8.5 Active 80840332 Problem Pressure ulcer of left buttock, stage 3 L89.323 Active 530664326 Problem Gastroesophageal reflux disease without esophagitis K21.9 Active 515951078 Problem 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 Active 00783879 Problem Pure hypercholesterolemia E78.0 Acti ve 521163449 Problem Post menopausal syndrome N95.1 Activ e 109110200 Problem Decubitus ulcer of left leg, stage 2 L89.892 Active 767021054 Problem Falling R29.6 Active 956839290 Problem Pharyngoesophageal dysphagia R13.14 A ctive [id number] ALLERGIES No Information ENCOUNTERS Encounter Location Date Diagnosis [place] [address] [facility] [id number] [address] [place] [phone] Jan, [facility] [address] [facility] [id number] [address] [place] [id number] 10 Jan, 2020 Hyperlipidemia, unspecified hyperlipidemia type E78.5 [place] [address] [place] [id number] [address] [place] [id number] 14 Dec, 2019 Depression, major, in remiss ion F32.5 [facility] [address] [facility] [id number] [address] [place] [phone] 21 Nov, 2019 Exercise counseling Z71.82 [facility] [address] [facility] [id number] [address] [place] [id number] 14 Nov, 2019 Exercise counseling Z71.82 [facility] [address] [facility] [id number] [address] [place] [id number] 07 Nov, 2019 Exercise counseling Z71.82 [place] [address] [facility] [id number] [address] [place] [phone] 31 Oct, 2019 Exercise counseling Z71.82 [place] [address] [facility] [id number] [address] [place] [phone] 24 Oct, 2019 Exercise counseling Z71.82 [place] [address] [facility] [id number] [address] [place] [phone] 17 Oct, 2019 Exercise counseling Z71.82 [place] [address] [facility] [id number] [address] [place] [phone] 12 Oct, 2019 Exercise counseling Z71.82 [place] [address] [facility] [id number] [address] [place] [id number] 05 Oct, 2019 Exercise counseling Z71.82 [place] [address] [facility] [id number] [address] [place] [id number] 26 Sep, 2019 Falling R29.6 ; Pharyngoesop hageal dysphagia R13.14 and Pressure ulcer of left buttock, stage 3 L89.323 [place] [address] [facility] [id number] [address] [place] [id number] Sep, Exercise counseling Z71.82 [place] [address] [facility] [id number] [address] [place] [phone] 18 Sep, 2019 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 and Falling R29.6 [place] [address] [facility] [id number] [address] [place] [id number] 13 Sep, 2019 [place] [address] [place] [id number] [address] [place] [phone] Sep, Falling R29.6 [facility] [address] [id number] [address] [place] [phone] Sep, [facility] [address] [facility] [id number] [address] [place] [id number] Sep, Acquired hypothyroidism E03. 9 and Falling R29.6 [facility] [address] [facility] [id number] [address] [place] [phone] Aug, Depression, major, in remiss ion F32.5 [facility] [address] [id number] [address] [place] [phone] May, Depression, major, in remiss ion F32.5 [facility] [address] [facility] [id number] [address] [place] [phone] May, Wound of left lower extremit y, subsequent encounter S81.802D [facility] [address] [facility] [id number] [address] [place] [phone] May, Wound of left lower extremit y, subsequent encounter S81.802D [facility] [address] [facility] [id number] [address] [place] [phone] May, Wound of left lower extremit y, subsequent encounter S81.802D [facility] [address] [facility] [id number] [address] [place] [phone] May, Wound of left lower extremit y, subsequent encounter S81.802D [facility] [address] [facility] [id number] [address] [place] [phone] May, [facility] [address] [facility] [id number] [address] [place] [id number] May, Peripheral edema R60.9 ; Dec ubitus ulcer of left leg, stage 2 L89.892 ; Dry skin dermatitis L85.3 ; Encounter for immunization Z23 and Breast cancer screening Z12.39 [facility] [address] [facility] [id number] [address] [place] [phone] Mar, [facility] [address] [id number] [address] [place] [phone] Jan, Depression, major, in remiss ion F32.5 and Morbid obesity E66.01 [facility] [address] [facility] [id number] [address] [place] [phone] Jan, [facility] Z00.00 ; Hyperlipidemia, unspecified hyperlipidemia type E78.5 ; Depression, major, 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 ; Gastroesophageal reflux disease without esophagitis K21.9 ; Acquired hypothyroidism E03.9 ; Hearing loss of both ears H91.93 ; Post menopausal syndrome N95.1 and Morbid obesity E66.01 [facility] [address] [facility] [id number] [address] [place] [id number] Jan, Hyperlipidemia, unspecified hyperlipidemia type E78.5 and Morbid obesity E66.01 [facility] [address] [facility] [id number] [address] [place] [id number] Jan, [facility] [address] [id number] [address] [place] [phone] December, [facility] [address] [facility] [id number] [address] [place] [phone] December, [facility] [address] [facility] [id number] [address] [place] [phone] December, [facility] [address] [facility] [id number] [address] [place] [id number] December, Wound of left lower extremit y, subsequent encounter S81.802D [facility] [address] [facility] [id number] [address] [place] [id number] Nov, [facility] [address] [facility] [id number] [address] [place] [phone] Nov, Blister of left lower extrem ity without infection, initial encounter S80.822A and Morbid obesity E66.01 [facility] [address] [facility] [id number] [address] [place] [phone] Nov, [facility] [address] [id number] [address] [place] [phone] Nov, [facility] [address] [id number] [address] [place] [phone] Nov, [facility] [address] [id number] [address] [place] [phone] Nov, [facility] [address] [id number] [address] [place] [phone] Nov, [facility] [address] [id number] [address] [place] [phone] Nov, [facility] [address] [id number] [address] [place] [phone] Oct, [facility] [address] [id number] [address] [place] [id number] Oct, Depression, major, in remiss ion F32.5 [facility] [address] [id number] [address] [place] [phone] Oct, [facility] [address] [id number] [address] [place] [id number] Oct, [facility] [address] [id number] [address] [place] [phone] Oct, [facility] [address] [id number] [address] [place] [id number] Oct, Morbid obesity E66.01 and Pr essure injury of left buttock, stage 2 L89.322 [facility] [address] [id number] [address] [place] [id number] Oct, [facility] [address] [id number] [address] [place] [id number] Oct, [facility] [address] [id number] [address] [place] [id number] Oct, [facility] [address] [place] [id number] [address] [place] [id number] Oct, Pressure injury of other sit e, stage 2 L89.892 and Morbid obesity E66.01 [place] [address] [place] [id number] [address] [place] [id number] Sep, Cellulitis of other specifie d site L03.818 and BMI 40.0-44.9, adult Z68.41 [place] [id number] [place] [id number] 13 Sep, 2018 Scab R23.4 and BMI 40.0-44.9 , adult Z68.41 [place] [address] [place] [id number] [address] [place] [id number] Jun, Major depression in remissio n F32.5 [place] [address] [place] [id number] [address] [place] [id number] Apr, [place] [address] [phone] 24 Apr, 2018 Encounter for breast cancer screening other than mammogram Z12.39 ; Encounter for immunization Z23 and Colon cancer screening Z12.11 [place] [address] [place] [id number] [address] [place] [id number] Mar, Major depression in partial remission F32.4 and BMI 40.0-44.9, adult Z68.41 [place] [id number] [place] [id number] Mar, [place] [address] [place] [id number] [address] [place] [phone] Mar, Acquired hypothyroidism E03. 9 [place] [address] [place] [id number] [address] [place] [id number] Mar, Pain in left knee M25.562 ; Other chronic pain G89.29 and Gastroesophageal reflux disease without esophagitis K21.9 [place] [address] [place] [id number] [place] [phone] Jan, [facility] [address] [facility] [id number] [address] [place] [phone] Jan, Acquired hypothyroidism E03. 9 [facility] [address] [facility] [id number] [address] [place] [id number] Jan, [facility] [address] [facility] [id number] [address] [place] [phone] Jan, Acquired hypothyroidism E03. 9 [facility] [address] [facility] [id number] [address] [place] [phone] December, Major depressive disorder in full remission, unspecified whether recurrent F32.5 [facility] [address] [facility] [id number] [address] [place] [phone] Nov, Acquired hypothyroidism E03. 9 [place] [address] [facility] [id number] [address] [place] [id number] Nov, Pure hypercholesterolemia E7 8.0 ; Peripheral edema R60.9 and Acquired hypothyroidism E03.9 [facility] [address] [facility] [id number] [address] [place] [phone] Oct, Mild acid reflux K21.9 [facility] [address] [facility] [id number] [address] [place] [phone] Sep, Major depressive disorder, s glenny episode, in partial remission F32.4 and Long-term use of high-risk medication Z79.899 [place] [address] [facility] [id number] [address] [place] [phone] Aug, Encounter for immunization Z 23 [place] [address] [facility] [id number] [address] [place] [phone] Jul, [place] [address] [place] [id number] [address] [place] [id number] Jun, Medicare annual wellness vis it, initial Z00.00 ; BMI 40.0-44.9, adult Z68.41 and Encounter for immunization Z23 [place] [address] [facility] [id number] [address] [place] [phone] 10 May, 2017 [place] [address] [facility] [id number] [address] [place] [id number] May, Encounter for immunization Z 23 [place] [address] [facility] [id number] [address] [place] [id number] 10 May, 2017 Major depression in partial remission F32.4 [place] [address] [place] [id number] [address] [place] [id number] Apr, Hearing loss H91.90 ; Encoun ter for immunization Z23 and Encounter for screening mammogram for breast cancer Z12.31 [place] [address] [facility] [id number] [address] [place] [phone] Mar, Acquired hypothyroidism E03. 9 [place] [address] [place] [id number] [address] [place] [phone] Jan, Acquired hypothyroidism E03. 9 [place] [address] [facility] [id number] [address] [place] [phone] Jan, Acute midline low back pain without sciatica M54.5 [place] [address] [place] [id number] [address] [place] [id number] Jan, Peripheral edema R60.9 [place] [address] [place] [id number] [address] [place] [id number] Jan, Major depression in partial remission F32.4 [place] [address] [facility] [id number] [address] [place] [phone] Jan, Localized edema R60.0 [place] [address] [facility] [id number] [address] [place] [id number] Nov, Pure hypercholesterolemia E7 8.0 [place] [address] [facility] [id number] [address] [place] [phone] Nov, Pure hypercholesterolemia E7 8.0 [place] [address] [facility] [id number] [address] [place] [phone] Nov, Peripheral edema R60.9 [facility] [address] [id number] [address] [place] [id number] Oct, Major depression in partial remission F32.4 [facility] [address] [id number] [address] [place] [phone] Aug, [facility] [address] [id number] [address] [place] [phone] Aug, Elevated blood pressure read ing R03.0 [facility] [address] [id number] [address] [place] [phone] Aug, [facility] [address] [id number] [address] [place] [id number] Jun, Major depression in partial remission F32.4 [facility] [address] [id number] [address] [place] [id number] Apr, Major depressive disorder, r ecurrent episode, mild F33.0 [facility] [address] [id number] [address] [place] [id number] Mar, Encounter for well woman exa m with routine gynecological exam Z01.419 and Breast cancer screening Z12.39 [facility] [address] [id number] [address] [place] [id number] Jan, Hypothyroidism, unspecified type E03.9 [facility] [address] [id number] [address] [place] [id number] Jan, Major depressive disorder, r ecurrent episode, mild F33.0 [facility] [address] [id number] [address] [place] [id number] Jan, Abscess L02.91 [facility] [address] [id number] [address] [place] [phone] Jan, Furuncle L02.92 [facility] [address] [id number] [address] [place] [phone] Jan, Major depression in partial remission F32.4 [facility] [address] [id number] [address] [place] [id number] 13 Jan, 2016 Major depressive disorder, r ecurrent episode, mild F33.0 [facility] [address] [id number] [address] [place] [phone] December, Acute bacterial conjunctivit is of left eye H10.022 [facility] [address] [id number] [address] [place] [id number] December, Major depressive disorder, r ecurrent episode, mild F33.0 [facility] [address] [id number] [address] [place] [phone] Nov, [facility] [address] [facility] [id number] [address] [place] [id number] Nov, Major depressive disorder, r ecurrent episode, mild F33.0 [facility] [address] [facility] [id number] [address] [place] [id number] Nov, Hearing loss H91.90 [facility] [address] [facility] [id number] [address] [place] [id number] 17 Oct, 2015 Major depression in partial remission F32.4 [facility] [address] [facility] [id number] [address] [place] [phone] 15 Oct, 2015 Pneumonia J18.9 [facility] [address] [facility] [id number] [address] [place] [id number] 10 Oct, 2015 Influenza A J10.1 ; Fever, u nspecified R50.9 ; Conjunctivitis H10.9 and Cough R05 [facility] [address] [id number] [address] [place] [id number] 10 Oct, 2015 Major depressive disorder, r ecurrent episode, severe, 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 [facility] [address] [id number] [address] [place] [phone] Aug, [facility] [address] [facility] [id number] [address] [place] [phone] Aug, Acquired hypothyroidism E03. 9 and Pure hypercholesterolemia E78.0 [place] [address] [place] [id number] [address] [place] [phone] Aug, Major depressive disorder, r ecurrent episode, severe, 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 [facility] [address] [place] [id number] [address] [place] [id number] Jul, [facility] [address] [place] [id number] [address] [place] [id number] Jul, Major depressive disorder, r ecurrent episode, severe, 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 [place] [address] [place] [id number] [address] [place] [phone] Jun, Major depressive disorder, r ecurrent episode, severe, 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 [place] [address] [place] [id number] [address] [place] [phone] May, [facility] [address] [place] [id number] [address] [place] [phone] May, Major depressive disorder, r ecurrent episode, severe, 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 [facility] [address] [place] [id number] [address] [place] [id number] May, Major depressive disorder, r ecurrent episode, severe, 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 [facility] [address] [place] [id number] [address] [place] [phone] Apr, [facility] [address] [place] [id number] [address] [place] [id number] Apr, Depressive disorder, not els ewhere classified 311 and Unspecified psychosis 298.9 [facility] [address] [place] [id number] [address] [place] [id number] Apr, Depression 311 and Hard of h earing 389.9 [facility] [address] [place] [id number] [address] [place] [id number] 10 Apr, 2015 Schizoaffective disorder 295 .70 [facility] [address] [facility] [id number] [address] [place] [id number] 08 Apr, 2015 Major depressive disorder, r ecurrent episode, severe, specified as with psychotic behavior 296.34 [facility] [address] [facility] [id number] [address] [place] [phone] Apr, Psychosis 298.9 and Depressi on 311 [facility] [address] [facility] [id number] [address] [place] [id number] Apr, Depressive disorder, not els ewhere classified 311 and Unspecified psychosis 298.9 [facility] [address] [facility] [id number] [address] [place] [id number] Mar, Screening for cervical cance r V76.2 ; Well woman exam with routine gynecological exam V72.31 ; Colon cancer screening V76.51 ; Breast cancer screening V76.10 ; Irritable bowel syndrome 564.1 and Psychosis 298.9 [facility] [address] [facility] [id number] [address] [place] [phone] Mar, Psychosis 298.9 [facility] [address] [facility] [id number] [address] [place] [id number] Mar, Unspecified psychosis 298.9 [facility] [address] [facility] [id number] [address] [place] [id number] Nov, [facility] [address] [facility] [id number] [address] [place] [id number] Nov, [facility] [address] [facility] [id number] [address] [place] [id number] Oct, [facility] [address] [facility] [id number] [address] [place] [id number] Oct, [facility] [address] [facility] [id number] [address] [place] [id number] Jul, [facility] [address] [facility] [id number] [address] [place] [id number] Jul, [facility] [address] [id number] [address] [place] [id number] 13 May, 2014 [facility] [address] [id number] [address] [place] [id number] 11 Apr, 2014 [facility] [address] [id number] [facility] [place] [address] Apr, [facility] [address] [id number] [address] [place] [address], [place] [address] 05 Apr, 2014 [facility] [address] [id number] [address] [place] [address], [place] [address] 05 Apr, 2014 [facility] [address] [id number] [address] [place] [address], [place] [address] Apr, [facility] [address] [id number] [address] [place] [address], [place] [address] Mar, [facility] [address] [id number] [address] [place] [address], [place] [address] Mar, [facility] [address] [id number] [address] [place] [address], [place] [address] Mar, [facility] [address] [id number] [address] [place] [address], [place] [address] Mar, [facility] [address] [id number] [address] [place] [address], [place] [address] Mar, [facility] [address] [id number] [address] [place] [address], [place] [address] Mar, [facility] [address] [id number] [address] [place] [address], [place] [address] Mar, [facility] [address] [id number] [address] [place] [address], [place] [address] Mar, [facility] [address] [id number] [address] [place] [address], [place] [address] Mar, [facility] [address] [id number] [address] [place] [address], [place] [address] Mar, [facility] [address] [id number] [address] [place] [address], [place] [address] Jan, [facility] [address] [id number] [address] [place] [address], [place] [address] Jan, [facility] [address] [id number] [address] [place] [address], [place] [address] December, [facility] [address] [id number] [address] [place] [address], [place] [address] December, [facility] [address] [id number] [address] [place] [address], [place] [address] Nov, [facility] [address] [id number] [address] [place] [address], [place] [address] Nov, [facility] [address] [id number] [address] [place] [address], [place] [address] Sep, [facility] [address] [id number] [address] [place] [address], [place] [address] Sep, [facility] [address] [id number] [address] [place] [address], [place] [address] Sep, [facility] [address] [id number] [address] [place] [address], [place] [address] Sep, [facility] [address] [id number] [address] [place] [address], [place] [address] Jun, [facility] [address] [id number] [address] [place] [address], [place] [address] Jun, [facility] [address] [id number] [address] [place] [address], [place] [address] Jun, [facility] [address] [id number] [address] [place] [address], [place] [address] Jun, [facility] [address] [id number] [address] [place] [address], [place] [address] 16 May, 2013 [facility] [address] [id number] [address] [place] [address], [place] [address] May, [facility] [address] [id number] [address] [place] [address], [place] [address] Apr, [facility] [address] [id number] [address] [place] [address], [place] [address] Mar, [facility] [address] [id number] [address] [place] [address], [place] [address] Mar, [facility] [address] [id number] [address] [place] [address], [place] [address] Mar, [facility] [address] [id number] [address] [place] [address], [place] [address] Mar, [facility] [address] [id number] [address] [place] [address], [place] [address] Mar, [facility] [address] [id number] [address] [place] [address], [place] [address] Jan, [facility] [address] [id number] [address] [place] [address], [place] [address] Jan, [facility] [address] [id number] [address] [place] [address], [place] [address] Jan, [facility] [address] [id number] [address] [place] [address], [place] [address] December, [facility] [address] [id number] [address] [place] [address], [place] [address] Oct, [facility] [address] [id number] [address] [place] [address], [place] [address] Oct, [facility] [address] [id number] [address] [place] [address], [place] [address] Oct, [facility] [address] [id number] [address] [place] [address], [place] [address] Oct, [facility] [address] [id number] [address] [place] [address], [place] [address] Aug, [facility] [address] [id number] [address] [place] [address], [place] [address] 16 Jun, 2012 [facility] [address] [id number] [address] [place] [address], [place] [address] Jun, [facility] [address] [id number] [address] [place] [address], [place] [address] Jun, [facility] [address] [id number] [address] [place] [address], [place] [address] Jun, [facility] [address] [id number] [address] [place] [address], [place] [address] 05 May, 2012 [facility] [address] [id number] [address] [place] [address], [place] [address] Apr, [facility] [address] [id number] [address] [place] [address], [place] [address] Mar, [facility] [address] [id number] [address] [place] [address], [place] [address] Jan, [facility] [address] [id number] [address] [place] [address], [place] [address] Jan, [facility] [address] [id number] [address] [place] [address], [place] [address] December, [facility] [address] [id number] [address] [place] [address], [place] [address] December, [facility] [address] [id number] [address] [place] [address], [place] [address] December, [facility] [address] [id number] [address] [place] [address], [place] [address] December, [facility] [address] [id number] [address] [place] [address], [place] [address] Nov, [facility] [address] [id number] [address] [place] [address], [place] [address] Oct, [facility] [address] [id number] [place] [address] Sep, [facility] [address] [id number] [address] [place] [address] Sep, [facility] [address] [id number] [address] [place] [address] Sep, [facility] [address] [id number] [address] [place] [address] Sep, [facility] [address] [id number] [address] [place] [id number] Aug, [facility] [address] [id number] [address] [place] [id number] Jun, [facility] [address] [id number] [address] [place] [id number] May, [facility] [address] [id number] [address] [place] [id number] Mar, [facility] [address] [id number] [address] [place] [address] Jun, [facility] [address] [id number] [address] [place] [address] May, [facility] [address] [id number] [address] [place] [id number] May, IMMUNIZATIONS No Known Immunizations SOCIAL HISTORY Never Assessed REASON FOR VISIT PLAN OF CARE VITAL SIGNS MEDICATIONS Unknown Medications RESULTS No Results PROCEDURES Procedure Date Ordered Result Body Site ADMN FLU VAC NO FEE SCHED SAME DAY Jun 08, 2013 INSTRUCTIONS MEDICATIONS ADMINISTERED No Known Medications MEDICAL (GENERAL) HISTORY Type Description Date Medical History depression Medical History hypothryroidism Medical History hyperlipidemia Medical History trauma: Stroke - with L side faci al drooping Medical History Hearing loss -Bilateral. Wears hearing aids in both ear Surgical History hysterectomy Surgical History cholecystectomy Surgical History gall bladder removal Hospitalization History surgeries Hospitalization History stroke
--- OUTSIDE RECORDS SUMMARY | 2020-02-21 11:42 | XMS REPORT ---
Author Author Tarik Hyman Organization [facility] Address [address] [place] [address] Care Team Providers Care Buckle Stringer Name Role Phone ARIELLA Hyman Unavailable PROBLEMS Type Condition ICD9-CM Code GNI39-LX Code Onset Dates Condition S tatus SNOMED Code Problem Osteopenia after menopause M81.0 Act mode 945843818 Problem Acquired hypothyroidism E03.9 Active 933263891 Problem Hearing loss of both ears H91.93 Acti ve 89688622 Problem Depression, major, 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 Active 98737683 Problem Pressure injury of left buttock, stage 2 L89.322 Active 456763417 Problem Hyperlipidemia, unspecified hyperlipidemia type E7 8.5 Active 77076919 Problem Pressure ulcer of left buttock, stage 3 L89.323 Active 532922134 Problem Gastroesophageal reflux disease without esophagitis K21.9 Active 267401121 Problem 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 [id number] [address] [place] [phone] Jan, [facility] [address] [facility] [facility] [id number] [address] [place] [id number] 10 Jan, 2020 Hyperlipidemia, unspecified hyperlipidemia type E78.5 [facility] [address] [facility] [id number] [address] [place] [phone] December, Depression, major, in remiss ion F32.5 [place] [address] [facility] [id number] [address] [place] [phone] 21 Nov, 2019 Exercise counseling Z71.82 [place] [address] [facility] [id number] [address] [place] [id number] 14 Nov, 2019 Exercise counseling Z71.82 [place] [address] [place] [id number] [address] [place] [id number] 07 Nov, 2019 Exercise counseling Z71.82 [place] [address] [facility] [id number] [address] [place] [id number] 31 Oct, 2019 Exercise counseling Z71.82 [place] [address] [place] [id number] [address] [place] [phone] 24 Oct, 2019 Exercise counseling Z71.82 [place] [address] [place] [id number] [address] [place] [id number] 17 Oct, 2019 Exercise counseling Z71.82 [place] [address] [place] [id number] [address] [place] [id number] 12 Oct, 2019 Exercise counseling Z71.82 [place] [address] [place] [id number] [address] [place] [id number] 05 Oct, 2019 Exercise counseling Z71.82 [place] [address] [place] [id number] [address] [place] [id number] 26 Sep, 2019 Falling R29.6 ; Pharyngoesop hageal dysphagia R13.14 and Pressure ulcer of left buttock, stage 3 L89.323 [place] [address] [place] [id number] [address] [place] [id number] 20 Sep, 2019 Exercise counseling Z71.82 [place] [address] [place] [id number] [address] [place] [phone] 18 Sep, 2019 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 and Falling R29.6 [place] [address] [place] [id number] [address] [place] [id number] 13 Sep, 2019 [facility] [address] [facility] [facility] [id number] [address] [place] [phone] Sep, Falling R29.6 [facility] [address] [id number] [address] [place] [id number] Sep, [facility] [address] [facility] [id number] [address] [place] [phone] Sep, Acquired hypothyroidism E03. 9 and Falling R29.6 [facility] [address] [facility] [id number] [address] [place] [id number] Aug, Depression, major, in remiss ion F32.5 [facility] [address] [facility] [id number] [address] [place] [id number] May, Depression, major, in remiss ion F32.5 [facility] [address] [facility] [id number] [address] [place] [id number] May, Wound of left lower extremit y, subsequent encounter S81.802D [facility] [address] [facility] [id number] [address] [place] [phone] May, Wound of left lower extremit y, subsequent encounter S81.802D [facility] [address] [facility] [id number] [address] [place] [phone] May, Wound of left lower extremit y, subsequent encounter S81.802D [facility] [address] [facility] [id number] [address] [place] [phone] May, Wound of left lower extremit y, subsequent encounter S81.802D [facility] [address] [facility] [id number] [address] [place] [id number] May, [facility] [address] [facility] [id number] [address] [place] [phone] May, Peripheral edema R60.9 ; Dec ubitus ulcer of left leg, stage 2 L89.892 ; Dry skin dermatitis L85.3 ; Encounter for immunization Z23 and Breast cancer screening Z12.39 [place] [address] [id number] [address] [place] [phone] Mar, [facility] [address] [id number] [address] [place] [id number] Jan, Depression, major, in remiss ion F32.5 and Morbid obesity E66.01 [place] [address] [facility] [id number] [address] [place] [phone] Jan, Encounter for Medicare [facility] wellness exam Z00.00 ; Hyperlipidemia, unspecified hyperlipidemia type E78.5 ; Depression, major, 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 ; Gastroesophageal reflux disease without esophagitis K21.9 ; Acquired hypothyroidism E03.9 ; Hearing loss of both ears H91.93 ; Post menopausal syndrome N95.1 and Morbid obesity E66.01 [place] [address] [facility] [id number] [address] [place] [phone] Jan, Hyperlipidemia, unspecified hyperlipidemia type E78.5 and Morbid obesity E66.01 [place] [address] [id number] [address] [place] [phone] Jan, [place] [address] [facility] [id number] [address] [place] [phone] December, [place] [address] [facility] [id number] [address] [place] [phone] December, [place] [address] [facility] [id number] [address] [place] [phone] December, [place] [address] [facility] [id number] [address] [place] [id number] December, Wound of left lower extremit y, subsequent encounter S81.802D [place] [address] [facility] [id number] [address] [place] [phone] Nov, [place] [address] [facility] [id number] [address] [place] [phone] Nov, Blister of left lower extrem ity without infection, initial encounter S80.822A and Morbid obesity E66.01 [facility] [address] [id number] [address] [place] [phone] Nov, [facility] [address] [id number] [address] [place] [id number] Nov, [facility] [address] [id number] [address] [place] [phone] Nov, [facility] [address] [id number] [address] [place] [phone] Nov, [facility] [address] [id number] [address] [place] [phone] Nov, [facility] [address] [id number] [address] [place] [phone] Nov, [facility] [address] [id number] [address] [place] [phone] Oct, [facility] [address] [id number] [address] [place] [phone] Oct, Depression, major, in remiss ion F32.5 [facility] [address] [id number] [address] [place] [phone] Oct, [facility] [address] [id number] [address] [place] [id number] Oct, [facility] [address] [id number] [address] [place] [phone] Oct, [facility] [address] [id number] [address] [place] [id number] Oct, Morbid obesity E66.01 and Pr essure injury of left buttock, stage 2 L89.322 [facility] [address] [id number] [address] [place] [phone] Oct, [facility] [address] [id number] [address] [place] [phone] Oct, [facility] [address] [facility] [id number] [address] [place] [id number] Oct, [place] [address] [facility] [id number] [address] [place] [id number] Oct, Pressure injury of other sit e, stage 2 L89.892 and Morbid obesity E66.01 [facility] [address] [facility] [id number] [address] [place] [id number] Sep, Cellulitis of other specifie d site L03.818 and BMI 40.0-44.9, adult Z68.41 [place] [address] [facility] [id number] [address] [place] [id number] 13 Sep, 2018 Scab R23.4 and BMI 40.0-44.9 , adult Z68.41 [place] [address] [facility] [id number] [address] [place] [phone] Jun, Major depression in remissio n F32.5 [place] [address] [facility] [id number] [address] [place] [phone] 27 Apr, 2018 [place] [address] [facility] [id number] [address] [place] [id number] 24 Apr, 2018 Encounter for breast cancer screening other than mammogram Z12.39 ; Encounter for immunization Z23 and Colon cancer screening Z12.11 [place] [address] [facility] [id number] [address] [place] [phone] Mar, Major depression in partial remission F32.4 and BMI 40.0-44.9, adult Z68.41 [place] [address] [facility] [id number] [address] [place] [phone] Mar, [place] [address] [place] [id number] [address] [place] [phone] Mar, Acquired hypothyroidism E03. 9 [place] [address] [facility] [id number] [address] [place] [phone] Mar, Pain in left knee M25.562 ; Other chronic pain G89.29 and Gastroesophageal reflux disease without esophagitis K21.9 [facility] [address] [facility] [id number] [address] [place] [phone] Jan, [facility] [address] [facility] [id number] [address] [place] [id number] Jan, Acquired hypothyroidism E03. 9 [facility] [address] [facility] [id number] [address] [place] [phone] Jan, [facility] [address] [place] [id number] [address] [place] [id number] Jan, Acquired hypothyroidism E03. 9 [place] [address] [facility] [id number] [address] [place] [phone] December, Major depressive disorder in full remission, unspecified whether recurrent F32.5 [place] [address] [place] [id number] [address] [place] [phone] Nov, Acquired hypothyroidism E03. 9 [place] [address] [place] [id number] [address] [place] [id number] Nov, Pure hypercholesterolemia E7 8.0 ; Peripheral edema R60.9 and Acquired hypothyroidism E03.9 [place] [address] [facility] [id number] [address] [place] [phone] Oct, Mild acid reflux K21.9 [facility] [address] [facility] [id number] [address] [place] [phone] Sep, Major depressive disorder, s glenny episode, in partial remission F32.4 and Long-term use of high-risk medication Z79.899 [place] [address] [facility] [id number] [address] [place] [phone] Aug, Encounter for immunization Z 23 [place] [address] [facility] [id number] [address] [place] [phone] Jul, [facility] [address] [place] [id number] [address] [place] [phone] Jun, Medicare annual wellness vis it, initial Z00.00 ; BMI 40.0-44.9, adult Z68.41 and Encounter for immunization Z23 [place] [address] [id number] [address] [place] [phone] 10 May, 2017 [facility] [address] [id number] [address] [place] [phone] 10 May, 2017 Encounter for immunization Z 23 [facility] [address] [facility] [id number] [address] [place] [phone] 10 May, 2017 Major depression in partial remission F32.4 [place] [address] [facility] [id number] [address] [place] [id number] Apr, Hearing loss H91.90 ; Encoun ter for immunization Z23 and Encounter for screening mammogram for breast cancer Z12.31 [place] [address] [facility] [id number] [address] [place] [phone] Mar, Acquired hypothyroidism E03. 9 [place] [address] [facility] [id number] [address] [place] [phone] Jan, Acquired hypothyroidism E03. 9 [place] [address] [facility] [id number] [address] [place] [phone] Jan, Acute midline low back pain without sciatica M54.5 [place] [address] [facility] [id number] [address] [place] [phone] Jan, Peripheral edema R60.9 [place] [address] [facility] [id number] [address] [place] [phone] Jan, Major depression in partial remission F32.4 [place] [address] [id number] [address] [place] [phone] Jan, Localized edema R60.0 [place] [address] [facility] [id number] [address] [place] [phone] Nov, Pure hypercholesterolemia E7 8.0 [place] [address] [facility] [id number] [address] [place] [phone] Nov, Pure hypercholesterolemia E7 8.0 [facility] [address] [id number] [address] [place] [phone] Nov, Peripheral edema R60.9 [facility] [address] [id number] [address] [place] [phone] Oct, Major depression in partial remission F32.4 [facility] [address] [facility] [id number] [address] [place] [phone] Aug, [facility] [address] [facility] [id number] [address] [place] [phone] Aug, Elevated blood pressure read ing R03.0 [facility] [address] [facility] [id number] [address] [place] [phone] Aug, [facility] [address] [facility] [id number] [address] [place] [phone] Jun, Major depression in partial remission F32.4 [facility] [address] [facility] [id number] [address] [place] [id number] Apr, Major depressive disorder, r ecurrent episode, mild F33.0 [place] [address] [facility] [id number] [address] [place] [phone] Mar, Encounter for well woman exjoyce m with routine gynecological exam Z01.419 and Breast cancer screening Z12.39 [place] [address] [facility] [id number] [address] [place] [phone] Jan, Hypothyroidism, unspecified type E03.9 [facility] [address] [facility] [id number] [address] [place] [phone] Jan, Major depressive disorder, r ecurrent episode, mild F33.0 [facility] [address] [facility] [id number] [address] [place] [id number] Jan, Abscess L02.91 [facility] [address] [facility] [id number] [address] [place] [phone] Jan, Furuncle L02.92 [facility] [address] [facility] [id number] [address] [place] [phone] 16 Jan, 2016 Major depression in partial remission F32.4 [facility] [address] [facility] [id number] [address] [place] [id number] 13 Jan, 2016 Major depressive disorder, r ecurrent episode, mild F33.0 [facility] [address] [facility] [id number] [address] [place] [id number] 17 Dec, 2015 Acute bacterial conjunctivit is of left eye H10.022 [place] [address] [facility] [id number] [address] [place] [phone] December, Major depressive disorder, r ecurrent episode, mild F33.0 [place] [address] [facility] [id number] [address] [place] [phone] Nov, [place] [address] [facility] [id number] [address] [place] [phone] Nov, Major depressive disorder, r ecurrent episode, mild F33.0 [place] [address] [facility] [id number] [address] [place] [id number] 18 Nov, 2015 Hearing loss H91.90 [place] [address] [facility] [id number] [address] [place] [phone] 17 Oct, 2015 Major depression in partial remission F32.4 [place] [address] [facility] [id number] [address] [place] [id number] 15 Oct, 2015 Pneumonia J18.9 [facility] [address] [facility] [id number] [address] [place] [phone] 10 Oct, 2015 Influenza A J10.1 ; Fever, u nspecified R50.9 ; Conjunctivitis H10.9 and Cough R05 [place] [address] [facility] [id number] [address] [place] [phone] 10 Oct, 2015 Major depressive disorder, r ecurrent episode, severe, 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 [place] [address] [facility] [id number] [address] [place] [phone] Aug, [facility] [address] [facility] [id number] [address] [place] [phone] Aug, Acquired hypothyroidism E03. 9 and Pure hypercholesterolemia E78.0 [facility] [address] [id number] [address] [place] [phone] Aug, Major depressive disorder, r ecurrent episode, severe, 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 [facility] [address] [place] [id number] [address] [place] [id number] Jul, [facility] [address] [facility] [id number] [address] [place] [id number] Jul, Major depressive disorder, r ecurrent episode, severe, 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 [facility] [address] [facility] [place] [id number] [address] [place] [id number] Jun, Major depressive disorder, r ecurrent episode, severe, 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 [facility] [address] [facility] [place] [id number] [address] [place] [id number] May, [facility] [address] [facility] [place] [id number] [address] [place] [id number] May, Major depressive disorder, r ecurrent episode, severe, 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 [facility] [address] [facility] [place] [id number] [address] [place] [id number] May, Major depressive disorder, r ecurrent episode, severe, 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 [facility] [address] [facility] [place] [id number] [address] [place] [id number] Apr, [facility] [address] [facility] [place] [id number] [address] [place] [id number] Apr, Depressive disorder, not els ewhere classified 311 and Unspecified psychosis 298.9 [facility] [address] [facility] [place] [id number] [address] [place] [id number] Apr, Depression 311 and Hard of h earing 389.9 [facility] [address] [facility] [place] [id number] [address] [place] [id number] 10 Apr, 2015 Schizoaffective disorder 295 .70 [facility] [facility] [address] [facility] [id number] [address] [place] [id number] 08 Apr, 2015 Major depressive disorder, r ecurrent episode, severe, specified as with psychotic behavior 296.34 [facility] [address] [facility] [id number] [address] [place] [id number] Apr, Psychosis 298.9 and Depressi on 311 [facility] [address] [facility] [id number] [address] [place] [id number] Apr, Depressive disorder, not els ewhere classified 311 and Unspecified psychosis 298.9 [facility] [address] [facility] [id number] [address] [place] [id number] Mar, Screening for cervical cance r V76.2 ; Well woman exam with routine gynecological exam V72.31 ; Colon cancer screening V76.51 ; Breast cancer screening V76.10 ; Irritable bowel syndrome 564.1 and Psychosis 298.9 [facility] [address] [place] [id number] [address] [place] [id number] Mar, Psychosis 298.9 [facility] [address] [facility] [id number] [address] [place] [id number] Mar, Unspecified psychosis 298.9 [facility] [address] [facility] [id number] [address] [place] [phone] Nov, [facility] [address] [facility] [id number] [address] [place] [id number] Nov, [facility] [address] [facility] [id number] [address] [place] [id number] Oct, [facility] [address] [place] [id number] [address] [place] [id number] Oct, [facility] [address] [place] [place] [id number] [address] [place] [id number] Jul, [facility] [address] [id number] [facility] [address] Jul, [facility] [address] [id number] [address] [place] [address], [place] [id number] May, [facility] [address] [id number] [facility] [address] Apr, [facility] [address] [id number] [address] [place] [address], [place] [id number] Apr, [facility] [address] [id number] [address] [place] [address], [place] [id number] 05 Apr, 2014 [facility] [address] [id number] [address] [place] [address], [place] [id number] 05 Apr, 2014 [facility] [address] [id number] [address] [place] [address], [place] [id number] Apr, [facility] [address] [id number] [address] [place] [address], [place] [id number] Mar, [facility] [address] [id number] [address] [place] [address], [place] [id number] Mar, [facility] [address] [id number] [address] [place] [address], [place] [id number] Mar, [facility] [address] [id number] [address] [place] [address], [place] [id number] Mar, [facility] [address] [id number] [address] [place] [address], [place] [id number] Mar, [facility] [address] [id number] [address] [place] [address], [place] [id number] Mar, [facility] [address] [id number] [address] [place] [address], [place] [id number] Mar, [facility] [address] [id number] [address] [place] [address], [place] [id number] Mar, [facility] [address] [id number] [address] [place] [address], [place] [id number] Mar, [facility] [address] [id number] [address] [place] [address], [place] [id number] Mar, [facility] [address] [id number] [address] [place] [address], [place] [id number] Jan, [facility] [address] [id number] [address] [place] [address], [place] [id number] Jan, [facility] [address] [id number] [address] [place] [address], [place] [id number] December, [facility] [address] [id number] [address] [place] [address], [place] [id number] December, [facility] [address] [id number] [address] [place] [address], [place] [id number] Nov, [facility] [address] [id number] [address] [place] [address], [place] [address] Nov, [facility] [address] [id number] [address] [place] [address], [place] [id number] Sep, [facility] [address] [id number] [address] [place] [address], [place] [id number] Sep, [facility] [address] [id number] [address] [place] [address], [place] [id number] Sep, [facility] [address] [id number] [address] [place] [address], [place] [id number] Sep, [facility] [address] [id number] [address] [place] [address], [place] [id number] Jun, [facility] [address] [id number] [address] [place] [address], [place] [id number] Jun, [facility] [address] [id number] [address] [place] [address], [place] [id number] Jun, [facility] [address] [id number] [address] [place] [address], [place] [id number] Jun, [facility] [address] [id number] [address] [place] [address], [place] [id number] 16 May, 2013 [facility] [address] [id number] [address] [place] [address], [place] [id number] May, [facility] [address] [id number] [address] [place] [address], [place] [id number] Apr, [facility] [address] [id number] [address] [place] [address], [place] [id number] Mar, [facility] [address] [id number] [address] [place] [address], [place] [id number] Mar, [facility] [address] [id number] [address] [place] [address], [place] [id number] Mar, [facility] [address] [id number] [address] [place] [address], [place] [id number] Mar, [facility] [address] [id number] [address] [place] [address], [place] [address] Mar, [facility] [address] [id number] [address] [place] [address], [place] [address] Jan, [facility] [address] [id number] [address] [place] [address], [place] [id number] Jan, [facility] [address] [id number] [address] [place] [address], [place] [id number] Jan, [facility] [address] [id number] [address] [place] [address], [place] [id number] December, [facility] [address] [id number] [address] [place] [address], [place] [id number] Oct, [facility] [address] [id number] [address] [place] [address], [place] [id number] Oct, [facility] [address] [id number] [address] [place] [address], [place] [id number] Oct, [facility] [address] [id number] [address] [place] [address], [place] [id number] Oct, [facility] [address] [id number] [address] [place] [address], [place] [id number] Aug, [facility] [address] [id number] [address] [place] [address], [place] [id number] Jun, [facility] [address] [id number] [address] [place] [address], [place] [id number] Jun, [facility] [address] [id number] [address] [place] [address], [place] [id number] Jun, [facility] [address] [id number] [address] [place] [address], [place] [id number] Jun, [facility] [address] [id number] [address] [place] [address], [place] [address] May, [facility] [address] [id number] [address] [place] [address], [place] [id number] Apr, [facility] [address] [id number] [address] [place] [address], [place] [id number] Mar, [facility] [address] [id number] [address] [place] [address], [place] [id number] Jan, [facility] [address] [id number] [address] [place] [address], [place] [id number] Jan, [facility] [address] [id number] [address] [place] [address], [place] [id number] December, [facility] [address] [id number] [address] [place] [address], [place] [id number] December, [facility] [address] [id number] [address] [place] [address], [place] [id number] December, [facility] [address] [id number] [address] [place] [address], [place] [address] December, [facility] [address] [id number] [address] [place] [address], [place] [id number] Nov, [facility] [address] [id number] [address] [place] [address], [place] [id number] Oct, [facility] [address] [id number] [address] [place] [id number] Sep, [facility] [address] [id number] [address] [place] [id number] Sep, [facility] [address] [id number] [address] [place] [id number] Sep, [facility] [address] [id number] [address] [place] [id number] Sep, [facility] [address] [id number] [address] [place] [id number] Aug, [facility] [address] [id number] [address] [place] [id number] Jun, [facility] [address] [id number] [address] [place] [id number] May, [facility] [address] [id number] [address] [place] [id number] Mar, [facility] [address] [id number] [address] [place] [id number] Jun, [facility] [address] [id number] [address] [place] [id number] May, [facility] [address] [id number] [address] [place] [id number] May, IMMUNIZATIONS No Known Immunizations SOCIAL HISTORY Never Assessed REASON FOR VISIT PLAN OF CARE VITAL SIGNS MEDICATIONS Unknown Medications RESULTS No Results PROCEDURES No Known procedures INSTRUCTIONS MEDICATIONS ADMINISTERED No Known Medications MEDICAL [...]
--- OUTSIDE RECORDS SUMMARY | 2020-02-21 11:42 | XMS REPORT ---
Author Author Tarik Hyman Organization [facility] Address [address] [place] [address] Care Team Providers Care Commercial Assistant Name Role Phone ARIELLA Hyman Unavailable PROBLEMS Type Condition ICD9-CM Code FIE28-GQ Code Onset Dates Condition S tatus SNOMED Code Problem Osteopenia after menopause M81.0 Act mode 064589243 Problem Acquired hypothyroidism E03.9 Active 626138983 Problem Hearing loss of both ears H91.93 Acti ve 50744815 Problem Depression, major, 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 Active 28548148 Problem Pressure injury of left buttock, stage 2 L89.322 Active 651318448 Problem Hyperlipidemia, unspecified hyperlipidemia type E7 8.5 Active 49889894 Problem Pressure ulcer of left buttock, stage 3 L89.323 Active 778236811 Problem Gastroesophageal reflux disease without esophagitis K21.9 Active 647735063 Problem 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 Active 05327412 Problem Pure hypercholesterolemia E78.0 Acti ve 388774790 Problem Post menopausal syndrome N95.1 Activ e 559763586 Problem Decubitus ulcer of left leg, stage 2 L89.892 Active 687014869 Problem Falling R29.6 Active 278671559 Problem Pharyngoesophageal dysphagia R13.14 A ctive [id number] ALLERGIES No Information ENCOUNTERS Encounter Location Date Diagnosis [facility] [address] [facility] [id number] [address] [place] [phone] Jan, [facility] [address] [facility] [id number] [address] [place] [phone] 10 Jan, 2020 Hyperlipidemia, unspecified hyperlipidemia type E78.5 [facility] [address] [facility] [id number] [address] [place] [phone] December, Depression, major, in remiss ion F32.5 [place] [address] [facility] [id number] [address] [place] [address] 21 Nov, 2019 Exercise counseling Z71.82 [place] [address] [facility] [id number] [address] [place] [phone] 14 Nov, 2019 Exercise counseling Z71.82 [place] [address] [place] [id number] [address] [place] [phone] 07 Nov, 2019 Exercise counseling Z71.82 [place] [address] [facility] [id number] [address] [place] [phone] 31 Oct, 2019 Exercise counseling Z71.82 [place] [address] [place] [id number] [address] [place] [phone] 24 Oct, 2019 Exercise counseling Z71.82 [place] [address] [place] [id number] [address] [place] [phone] 17 Oct, 2019 Exercise counseling Z71.82 [place] [address] [place] [id number] [address] [place] [address] 12 Oct, 2019 Exercise counseling Z71.82 [place] [address] [place] [id number] [address] [place] [phone] 05 Oct, 2019 Exercise counseling Z71.82 [place] [address] [place] [id number] [address] [place] [phone] 26 Sep, 2019 Falling R29.6 ; Pharyngoesop hageal dysphagia R13.14 and Pressure ulcer of left buttock, stage 3 L89.323 [place] [address] [place] [id number] [address] [place] [address] 20 Sep, 2019 Exercise counseling Z71.82 [place] [address] [place] [id number] [address] [place] [phone] 18 Sep, 2019 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 and Falling R29.6 [place] [address] [place] [id number] [address] [place] [phone] 13 Sep, 2019 [facility] [address] [facility] [id number] [address] [place] [phone] Sep, Falling R29.6 [facility] [address] [id number] [address] [place] [phone] Sep, [facility] [address] [facility] [id number] [address] [place] [address] Sep, Acquired hypothyroidism E03. [address] [facility] [address] [facility] [id number] [address] [place] [phone] Aug, Depression, major, in remiss ion F32.5 [facility] [address] [facility] [id number] [address] [place] [phone] May, Depression, major, in remiss ion F32.5 [facility] [address] [facility] [id number] [address] [place] [phone] May, Wound of left lower extremit y, subsequent encounter S81.802D [facility] [address] [facility] [id number] [address] [place] [address] May, Wound of left lower extremit y, subsequent encounter S81.802D [facility] [address] [facility] [id number] [address] [place] [phone] May, Wound of left lower extremit y, subsequent encounter S81.802D [facility] [address] [facility] [id number] [address] [place] [address] May, Wound of left lower extremit y, subsequent encounter S81.802D [facility] [address] [facility] [id number] [address] [place] [phone] May, [facility] [address] [facility] [id number] [address] [place] [address] May, Peripheral edema R60.9 ; Dec ubitus ulcer of left leg, stage 2 L89.892 ; Dry skin dermatitis L85.3 ; Encounter for immunization Z23 and Breast cancer screening Z12.39 [place] [address] [id number] [address] [place] [phone] Mar, [facility] [address] [id number] [address] [place] [phone] Jan, Depression, major, in remiss ion F32.5 and Morbid obesity E66.01 [place] [address] [facility] [id number] [address] [place] [address] Jan, [facility] Z[facility].00 ; Hyperlipidemia, unspecified hyperlipidemia type E78.5 ; Depression, major, 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 ; Gastroesophageal reflux disease without esophagitis K21.9 ; Acquired hypothyroidism E03.9 ; Hearing loss of both ears H91.93 ; Post menopausal syndrome N95.1 and Morbid obesity E66.01 [place] [address] [facility] [id number] [address] [place] [address] Jan, Hyperlipidemia, unspecified hyperlipidemia type E78.5 and Morbid obesity E66.01 [place] [address] [id number] [address] [place] [phone] Jan, [place] [address] [facility] [id number] [address] [place] [phone] December, [place] [address] [facility] [id number] [address] [place] [phone] December, [place] [address] [facility] [id number] [address] [place] [address] December, [place] [address] [facility] [id number] [address] [place] [address] December, Wound of left lower extremit y, subsequent encounter S81.802D [place] [address] [facility] [id number] [address] [place] [address] Nov, [place] [address] [facility] [id number] [address] [place] [phone] Nov, Blister of left lower extrem ity without infection, initial encounter S80.822A and Morbid obesity E66.01 [facility] [address] [id number] [address] [place] [phone] Nov, [facility] [address] [id number] [address] [place] [phone] Nov, [facility] [address] [id number] [address] [place] [phone] Nov, [facility] [address] [id number] [address] [place] [phone] Nov, [facility] [address] [id number] [address] [place] [phone] Nov, [facility] [address] [id number] [address] [place] [phone] Nov, [facility] [address] [id number] [address] [place] [phone] Oct, [facility] [address] [id number] [address] [place] [phone] Oct, Depression, major, in remiss ion F32.5 [facility] [address] [id number] [address] [place] [phone] Oct, [facility] [address] [id number] [address] [place] [phone] Oct, [facility] [address] [id number] [address] [place] [address] Oct, [facility] [address] [id number] [address] [place] [address] Oct, Morbid obesity E66.01 and Pr essure injury of left buttock, stage [address] [facility] [address] [id number] [address] [place] [phone] Oct, [facility] [address] [id number] [address] [place] [phone] Oct, [facility] [address] [facility] [id number] [address] [place] [address] Oct, [place] [address] [facility] [id number] [address] [place] [address] Oct, Pressure injury of other sit e, stage 2 L89.892 and Morbid obesity E66.01 [facility] [address] [facility] [id number] [address] [place] [address] Sep, Cellulitis of other specifie d site L03.818 and BMI 40.0-44.9, adult Z68.41 [place] [address] [facility] [id number] [address] [place] [phone] 13 Sep, 2018 Scab R23.4 and BMI 40.0-44.9 , adult Z68.41 [place] [address] [facility] [id number] [address] [place] [address] Jun, Major depression in remissio n F32.5 [place] [address] [facility] [id number] [address] [place] [phone] 27 Apr, 2018 [place] [address] [facility] [id number] [address] [place] [phone] 24 Apr, 2018 Encounter for breast cancer screening other than mammogram Z12.39 ; Encounter for immunization Z23 and Colon cancer screening Z12.11 [place] [address] [facility] [id number] [address] [place] [address] Mar, Major depression in partial remission F32.4 and BMI 40.0-44.9, adult Z68.41 [place] [address] [facility] [id number] [address] [place] [address] Mar, [place] [address] [place] [id number] [address] [place] [phone] Mar, Acquired hypothyroidism E03. 9 [place] [address] [facility] [id number] [address] [place] [address] Mar, Pain in left knee M25.562 ; Other chronic pain G89.29 and Gastroesophageal reflux disease without esophagitis K21.9 [facility] [address] [facility] [id number] [address] [place] [phone] Jan, [facility] [address] [facility] [id number] [address] [place] [phone] Jan, Acquired hypothyroidism E03. 9 [facility] [address] [facility] [id number] [address] [place] [phone] Jan, [facility] [address] [place] [id number] [address] [place] [phone] Jan, Acquired hypothyroidism E03. 9 [place] [address] [facility] [id number] [address] [place] [address] December, Major depressive disorder in full remission, unspecified whether recurrent F32.5 [place] [address] [place] [id number] [address] [place] [phone] Nov, Acquired hypothyroidism E03. 9 [place] [address] [place] [id number] [address] [place] [phone] Nov, Pure hypercholesterolemia E7 8.0 ; Peripheral edema R60.9 and Acquired hypothyroidism E03.9 [place] [address] [facility] [id number] [address] [place] [address] Oct, Mild acid reflux K21.9 [facility] [address] [facility] [id number] [address] [place] [address] Sep, Major depressive disorder, s glenny episode, in partial remission F32.4 and Long-term use of high-risk medication Z79.899 [place] [address] [facility] [id number] [address] [place] [phone] Aug, Encounter for immunization Z 23 [place] [address] [facility] [id number] [address] [place] [phone] Jul, [facility] [address] [place] [id number] [address] [place] [address] Jun, Medicare annual wellness vis it, initial Z00.00 ; BMI 40.0-44.9, adult Z68.41 and Encounter for immunization Z23 [place] [address] [id number] [address] [place] [address] 10 May, 2017 [facility] [address] [id number] [address] [place] [address] 10 May, 2017 Encounter for immunization Z 23 [facility] [address] [facility] [id number] [address] [place] [address] 10 May, 2017 Major depression in partial remission F32.4 [place] [address] [facility] [id number] [address] [place] [address] Apr, Hearing loss H91.90 ; Encoun ter for immunization Z23 and Encounter for screening mammogram for breast cancer Z12.31 [place] [address] [facility] [id number] [address] [place] [phone] Mar, Acquired hypothyroidism E03. 9 [place] [address] [facility] [id number] [address] [place] [phone] Jan, Acquired hypothyroidism E03. 9 [place] [address] [facility] [id number] [address] [place] [phone] Jan, Acute midline low back pain without sciatica M54.5 [place] [address] [facility] [id number] [address] [place] [address] Jan, Peripheral edema R60.9 [place] [address] [facility] [id number] [address] [place] [phone] Jan, Major depression in partial remission F32.4 [place] [address] [id number] [address] [place] [address] Jan, Localized edema R60.0 [place] [address] [facility] [id number] [address] [place] [phone] Nov, Pure hypercholesterolemia E7 8.0 [place] [address] [facility] [id number] [address] [place] [address] Nov, Pure hypercholesterolemia E7 8.0 [facility] [address] [id number] [address] [place] [address] Nov, Peripheral edema R60.9 [facility] [address] [id number] [address] [place] [address] Oct, Major depression in partial remission F32.4 [facility] [address] [facility] [id number] [address] [place] [address] Aug, [facility] [address] [facility] [id number] [address] [place] [address] Aug, Elevated blood pressure read ing R03.0 [facility] [address] [facility] [id number] [address] [place] [phone] Aug, [facility] [address] [facility] [id number] [address] [place] [address] Jun, Major depression in partial remission F32.4 [facility] [address] [facility] [id number] [address] [place] [phone] Apr, Major depressive disorder, r ecurrent episode, mild F33.0 [place] [address] [facility] [id number] [address] [place] [address] Mar, Encounter for well woman exjoyce m with routine gynecological exam Z01.419 and Breast cancer screening Z12.39 [place] [address] [facility] [id number] [address] [place] [address] Jan, Hypothyroidism, unspecified type E03.9 [facility] [address] [facility] [id number] [address] [place] [address] Jan, Major depressive disorder, r ecurrent episode, mild F33.0 [facility] [address] [facility] [id number] [address] [place] [address] Jan, Abscess L02.91 [facility] [address] [facility] [id number] [address] [place] [phone] Jan, Furuncle L02.92 [facility] [address] [facility] [id number] [address] [place] [phone] 16 Jan, 2016 Major depression in partial remission F32.4 [facility] [address] [facility] [id number] [address] [place] [phone] 13 Jan, 2016 Major depressive disorder, r ecurrent episode, mild F33.0 [facility] [address] [facility] [id number] [address] [place] [address] 17 Dec, 2015 Acute bacterial conjunctivit is of left eye H10.022 [place] [address] [facility] [id number] [address] [place] [address] December, Major depressive disorder, r ecurrent episode, mild F33.0 [place] [address] [facility] [id number] [address] [place] [phone] Nov, [place] [address] [facility] [id number] [address] [place] [address] Nov, Major depressive disorder, r ecurrent episode, mild F33.0 [place] [address] [facility] [id number] [address] [place] [address] 18 Nov, 2015 Hearing loss H91.90 [place] [address] [facility] [id number] [address] [place] [address] 17 Oct, 2015 Major depression in partial remission F32.4 [place] [address] [facility] [id number] [address] [place] [address] 15 Oct, 2015 Pneumonia J18.9 [facility] [address] [facility] [id number] [address] [place] [address] 10 Oct, 2015 Influenza A J10.1 ; Fever, u nspecified R50.9 ; Conjunctivitis H10.9 and Cough R05 [place] [address] [facility] [id number] [address] [place] [phone] 10 Oct, 2015 Major depressive disorder, r ecurrent episode, severe, 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 [place] [address] [facility] [id number] [address] [place] [phone] Aug, [facility] [address] [facility] [id number] [address] [place] [address] Aug, Acquired hypothyroidism E03. 9 and Pure hypercholesterolemia E78.0 [facility] [address] [id number] [address] [place] [address] Aug, Major depressive disorder, r ecurrent episode, severe, 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 [facility] [address] [facility] [id number] [address] [place] [phone] Jul, [facility] [address] [facility] [id number] [address] [place] [phone] Jul, Major depressive disorder, r ecurrent episode, severe, 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 [facility] [address] [facility] [id number] [address] [place] [address] Jun, Major depressive disorder, r ecurrent episode, severe, 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 [facility] [address] [facility] [id number] [address] [place] [address] May, [facility] [address] [facility] [id number] [address] [place] [address] May, Major depressive disorder, r ecurrent episode, severe, 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 [facility] [address] [facility] [id number] [address] [place] [address] May, Major depressive disorder, r ecurrent episode, severe, 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 [facility] [address] [facility] [id number] [address] [place] [phone] Apr, [facility] [address] [facility] [id number] [address] [place] [address] Apr, Depressive disorder, not els ewhere classified 311 and Unspecified psychosis 298.9 [facility] [address] [facility] [id number] [address] [place] [address] Apr, Depression 311 and Hard of h earing 389.9 [facility] [address] [facility] [id number] [address] [place] [address] 10 Apr, 2015 Schizoaffective disorder [address] [facility] [address] [facility] [id number] [address] [place] [phone] 08 Apr, 2015 Major depressive disorder, r ecurrent episode, severe, specified as with psychotic behavior 296.34 [facility] [address] [facility] [id number] [address] [place] [address] Apr, Psychosis 298.[address] on [address] [facility] [address] [facility] [id number] [address] [place] [address] Apr, Depressive disorder, not els ewhere classified 311 and Unspecified psychosis 298.9 [facility] [address] [facility] [id number] [address] [place] [address] Mar, Screening for cervical cance r V76.2 ; Well woman exam with routine gynecological exam V72.31 ; Colon cancer screening V76.51 ; Breast cancer screening V76.10 ; Irritable bowel syndrome 564.[address] [facility] [address] [place] [id number] [address] [place] [address] Mar, Psychosis 298.9 [facility] [address] [facility] [id number] [address] [place] [address] Mar, Unspecified psychosis 298.9 [facility] [address] [facility] [id number] [address] [place] [phone] Nov, [facility] [address] [facility] [id number] [address] [place] [address] Nov, [facility] [address] [facility] [id number] [address] [place] [address] Oct, [facility] [address] [place] [id number] [address] [place] [phone] Oct, [facility] [address] [place] [id number] [address] [place] [address] Jul, [facility] [address] [id number] [facility] [place] [address] Jul, [facility] [address] [id number] [address] [place] [address], [place] [address] May, [facility] [address] [id number] [facility] [place] [address] Apr, [facility] [address] [id number] [address] [place] [address], [place] [address] Apr, [facility] [address] [id number] [address] [place] [address], [place] [id number] 05 Apr, 2014 [facility] [address] [id number] [address] [place] [address], [place] [id number] 05 Apr, 2014 [facility] [address] [id number] [address] [place] [address], [place] [address] Apr, [facility] [address] [id number] [address] [place] [address], [place] [address] Mar, [facility] [address] [id number] [address] [place] [address], [place] [id number] Mar, [facility] [address] [id number] [address] [place] [address], [place] [address] Mar, [facility] [address] [id number] [address] [place] [address], [place] [address] Mar, [facility] [address] [id number] [address] [place] [address], [place] [address] Mar, [facility] [address] [id number] [address] [place] [address], [place] [address] Mar, [facility] [address] [id number] [address] [place] [address], [place] [address] Mar, [facility] [address] [id number] [address] [place] [address], [place] [address] Mar, [facility] [address] [id number] [address] [place] [address], [place] [address] Mar, [facility] [address] [id number] [address] [place] [address], [place] [address] Mar, [facility] [address] [id number] [address] [place] [address], [place] [address] Jan, [facility] [address] [id number] [address] [place] [address], [place] [address] Jan, [facility] [address] [id number] [address] [place] [address], [place] [address] December, [facility] [address] [id number] [address] [place] [address], [place] [address] December, [facility] [address] [id number] [address] [place] [address], [place] [address] Nov, [facility] [address] [id number] [address] [place] [address], [place] [address] Nov, [facility] [address] [id number] [address] [place] [address], [place] [address] Sep, [facility] [address] [id number] [address] [place] [address], [place] [address] Sep, [facility] [address] [id number] [address] [place] [address], [place] [address] Sep, [facility] [address] [id number] [address] [place] [address], [place] [address] Sep, [facility] [address] [id number] [address] [place] [address], [place] [address] Jun, [facility] [address] [id number] [address] [place] [address], [place] [address] Jun, [facility] [address] [id number] [address] [place] [address], [place] [address] Jun, [facility] [address] [id number] [address] [place] [address], [place] [address] Jun, [facility] [address] [id number] [address] [place] [address], [place] [address] 16 May, 2013 [facility] [address] [id number] [address] [place] [address], [place] [address] May, [facility] [address] [id number] [address] [place] [address], [place] [address] Apr, [facility] [address] [id number] [address] [place] [address], [place] [address] Mar, [facility] [address] [id number] [address] [place] [address], [place] [address] Mar, [facility] [address] [id number] [address] [place] [address], [place] [address] Mar, [facility] [address] [id number] [address] [place] [address], [place] [address] Mar, [facility] [address] [id number] [address] [place] [address], [place] [address] Mar, [facility] [address] [id number] [address] [place] [address], [place] [address] Jan, [facility] [address] [id number] [address] [place] [address], [place] [address] Jan, [facility] [address] [id number] [address] [place] [address], [place] [address] Jan, [facility] [address] [id number] [address] [place] [address], [place] [address] December, [facility] [address] [id number] [address] [place] [address], [place] [address] Oct, [facility] [address] [id number] [address] [place] [address], [place] [address] Oct, [facility] [address] [id number] [address] [place] [address], [place] [address] Oct, [facility] [address] [id number] [address] [place] [address], [place] [address] Oct, [facility] [address] [id number] [address] [place] [address], [place] [address] Aug, [facility] [address] [id number] [address] [place] [address], [place] [address] Jun, [facility] [address] [id number] [address] [place] [address], [place] [address] Jun, [facility] [address] [id number] [address] [place] [address], [place] [address] Jun, [facility] [address] [id number] [address] [place] [address], [place] [address] Jun, [facility] [address] [id number] [address] [place] [address], [place] [address] May, [facility] [address] [id number] [address] [place] [address], [place] [address] Apr, [facility] [address] [id number] [address] [place] [address], [place] [address] Mar, [facility] [address] [id number] [address] [place] [address], [place] [address] Jan, [facility] [address] [id number] [address] [place] [address], [place] [address] Jan, [facility] [address] [id number] [address] [place] [address], [place] [address] December, [facility] [address] [id number] [address] [place] [address], [place] [address] December, [facility] [address] [id number] [address] [place] [address], [place] [address] December, [facility] [address] [id number] [address] [place] [address], [place] [address] December, [facility] [address] [id number] [address] [place] [address], [place] [address] Nov, [facility] [address] [id number] [address] [place] [address], [place] [address] Oct, [facility] [address] [id number] [address] [place] [id number] Sep, [facility] [address] [id number] [address] [place] [id number] Sep, [facility] [address] [id number] [address] [place] [id number] Sep, [facility] [address] [id number] [address] [place] [address] Sep, [facility] [address] [id number] [address] [place] [address] Aug, [facility] [address] [id number] [address] [place] [id number] Jun, [facility] [address] [id number] [address] [place] [address] May, [facility] [address] [id number] [address] [place] [id number] Mar, [facility] [address] [id number] [address] [place] [id number] Jun, [facility] [address] [id number] [address] [place] [id number] May, [facility] [address] [id number] [address] [place] [address] May, IMMUNIZATIONS No Known Immunizations SOCIAL HISTORY Never Assessed REASON FOR VISIT PLAN OF CARE VITAL SIGNS Height 65 in 2013-01-24 Weight 246 lbs 2013-01-24 Temperature 97.8 degrees Fahrenheit 2013-01-24 Heart Rate 74 bpm 2013-01-24 Respiratory Rate 16 2013-01-24 Blood pressure systolic 120 mmHg 2013-01-24 Blood pressure diastolic 78 mmHg 2013-01-24 MEDICATIONS Unknown Medications RESULTS No Results PROCEDURES Procedure Date Ordered Result Body Site MAMMOGRAM, SCREENING January 24, 2013 INSTRUCTIONS MEDICATIONS ADMINISTERED No Known Medications [...]
--- OUTSIDE RECORDS SUMMARY | 2020-02-21 11:42 | XMS REPORT ---
Author Author Tarik POTTS Organization [facility], [place] Address [address] [place] [address] Care Team Providers Care Customer Service Rep Name Role Phone ROMA POTTS Unavailable PROBLEMS Type Condition ICD9-CM Code FTF63-VE Code Onset Dates Condition S tatus SNOMED Code Problem Osteopenia after menopause M81.0 Act mode 389467119 Problem Acquired hypothyroidism E03.9 Active 085510009 Problem Hearing loss of both ears H91.93 Acti ve 99775273 Problem Depression, major, 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 Active 41486136 Problem Pressure injury of left buttock, stage 2 L89.322 Active 404681255 Problem Hyperlipidemia, unspecified hyperlipidemia type E7 8.5 Active 54837894 Problem Pressure ulcer of left buttock, stage 3 L89.323 Active 713921109 Problem Gastroesophageal reflux disease without esophagitis K21.9 Active 363521067 Problem 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 Active 00373986 Problem Pure hypercholesterolemia E78.0 Acti ve 542985253 Problem Post menopausal syndrome N95.1 Activ e 492540751 Problem Decubitus ulcer of left leg, stage 2 L89.892 Active 263309324 Problem Falling R29.6 Active 710887480 Problem Pharyngoesophageal dysphagia R13.14 A ctive [id number] ALLERGIES No Information ENCOUNTERS Encounter Location Date Diagnosis [facility], [place] [address] [facility] [id number] [address] [place] [phone] Jan, [facility], [place] [address] [facility] [id number] [address] [place] [phone] December, Depression, major, in remiss ion F32.5 [facility], [place] [address] [facility] [id number] [address] [place] [phone] Nov, Exercise counseling Z71.82 [facility], [place] [address] [facility] [id number] [address] [place] [phone] 14 Nov, 2019 Exercise counseling Z71.82 [facility], [place] [address] [facility] [id number] [address] [place] [phone] 07 Nov, 2019 Exercise counseling Z71.82 [facility], [place] [address] [facility] [id number] [address] [place] [phone] 31 Oct, 2019 Exercise counseling Z71.82 [facility], [place] [address] [facility] [id number] [address] [place] [phone] 24 Oct, 2019 Exercise counseling Z71.82 [place] [address] [facility] [id number] [address] [place] [phone] 17 Oct, 2019 Exercise counseling Z71.82 [place] [address] [facility] [id number] [address] [place] [phone] 12 Oct, 2019 Exercise counseling Z71.82 [place] [address] [facility] [id number] [address] [place] [phone] 05 Oct, 2019 Exercise counseling Z71.82 [place] [address] [facility] [id number] [address] [place] [phone] 26 Sep, 2019 Falling R29.6 ; Pharyngoesop hageal dysphagia R13.14 and Pressure ulcer of left buttock, stage 3 L89.323 [place] [address] [facility] [id number] [address] [place] [phone] 20 Sep, 2019 Exercise counseling Z71.82 [place] [address] [facility] [id number] [address] [place] [phone] 18 Sep, 2019 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 and Falling R29.6 [place] [address] [facility] [id number] [address] [place] [phone] 13 Sep, 2019 [place] [address] [facility] [id number] [address] [place] [phone] Sep, Falling R29.6 [facility], [place] [address] [id number] [address] [place] [phone] 06 Sep, 2019 [facility], [place] [address] [id number] [address] [place] [phone] Sep, Acquired hypothyroidism E03. 9 and Falling R29.6 [facility], [place] [address] [id number] [address] [place] [phone] Aug, Depression, major, in remiss ion F32.5 [facility], [place] [address] [id number] [address] [place] [phone] May, Depression, major, in [facility] ion F32.5 [facility], [place] [address] [facility] [id number] [address] [place] [phone] May, Wound of left lower extremit y, subsequent encounter S81.802D [facility], [place] [address] [facility] [id number] [address] [place] [phone] May, Wound of left lower extremit y, subsequent encounter S81.802D [facility], [place] [address] [facility] [id number] [address] [place] [phone] May, Wound of left lower extremit y, subsequent encounter S81.802D [facility] [place] [address] [facility] [id number] [address] [place] [phone] May, Wound of left lower extremit y, subsequent encounter S81.802D [facility] [place] [address] [facility] [id number] [address] [place] [phone] May, [facility], [place] [address] [facility] [id number] [address] [place] [phone] May, Peripheral edema R60.9 ; Dec ubitus ulcer of left leg, stage 2 L89.892 ; Dry skin dermatitis L85.3 ; Encounter for immunization Z23 and Breast cancer screening Z12.39 [facility], [place] [address] [facility] [id number] [address] [place] [phone] Mar, [facility] [place] [address] [facility] [id number] [address] [place] [phone] Jan, Depression, major, in remiss ion F32.5 and Morbid obesity E66.01 [facility], [place] [address] [facility] [id number] [address] [place] [phone] Jan, Encounter for Medicare ro muller wellness exam Z00.00 ; Hyperlipidemia, unspecified hyperlipidemia type E78.5 ; Depression, major, 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 ; Gastroesophageal reflux disease without esophagitis K21.9 ; Acquired hypothyroidism E03.9 ; Hearing loss of both ears H91.93 ; Post menopausal syndrome N95.1 and Morbid obesity E66.01 [facility], [place] [address] [id number] [address] [place] [phone] Jan, Hyperlipidemia, unspecified hyperlipidemia type E78.5 and Morbid obesity E66.01 [place] [id number] [facility] [id number] [address] [place] [phone] Jan, [facility], [place] [address] [id number] [address] [place] [phone] December, [facility], [place] [address] [id number] [address] [place] [phone] December, [facility], [place] [address] [id number] [address] [place] [phone] December, [facility] [place] [address] [id number] [address] [place] [id number] December, Wound of left lower extremit y, subsequent encounter S81.802D [facility], [place] [address] [id number] [address] [place] [phone] Nov, [facility] [place] [address] [facility] [id number] [address] [place] [phone] Nov, Blister of left lower extrem ity without infection, initial encounter S80.822A and Morbid obesity E66.01 [facility], [place] [address] [facility] [id number] [address] [place] [phone] Nov, [facility] [place] [address] [id number] [address] [place] [phone] Nov, [facility], [place] [address] [id number] [address] [place] [phone] Nov, [facility], [place] [address] [id number] [address] [place] [phone] Nov, [facility], [place] [address] [id number] [address] [place] [phone] Nov, [facility], [place] [address] [id number] [address] [place] [phone] Nov, [facility], [place] [address] [id number] [address] [place] [phone] Oct, [facility], [place] [address] [id number] [address] [place] [address] Oct, Depression, major, in remiss ion F32.5 [facility], [place] [address] [id number] [address] [place] [phone] Oct, [facility], [place] [address] [id number] [address] [place] [phone] Oct, [facility], [place] [address] [id number] [address] [place] [phone] Oct, [facility], [place] [address] [id number] [address] [place] [address] Oct, Morbid obesity E66.01 and Pr essure injury of left buttock, stage 2 L89.322 [facility], [place] [address] [id number] [address] [place] [phone] Oct, [facility], [place] [address] [id number] [address] [place] [phone] Oct, [facility], [place] [address] [id number] [address] [place] [phone] Oct, [facility] [place] [address] [id number] [address] [place] [address] Oct, Pressure injury of other sit e, stage 2 L89.892 and Morbid obesity E66.01 [place] [address] [place] [id number] [address] [place] [phone] 25 Sep, 2018 Cellulitis of other specifie d site L03.818 and BMI 40.0-44.9, adult Z68.41 [place] [address] [place] [id number] [address] [place] [phone] 13 Sep, 2018 Scab R23.4 and BMI 40.0-44.9 , adult Z68.41 [place] [address] [place] [id number] [address] [place] [phone] Jun, Major depression in remissio n F32.5 [place] [address] [place] [id number] [address] [place] [phone] Apr, [place] [id number] [place] [address] Apr, Encounter for breast cancer screening other than mammogram Z12.39 ; Encounter for immunization Z23 and Colon cancer screening Z12.11 [place] [address] [place] [id number] [address] [place] [phone] 30 Mar, 2018 Major depression in partial remission F32.4 and BMI 40.0-44.9, adult Z68.41 [place] [address] [place] [address] Mar, [place] [address] [place] [id number] [address] [place] [phone] Mar, Acquired hypothyroidism E03. 9 [place] [address] [place] [id number] [address] [place] [address] Mar, Pain in left knee M25.562 ; Other chronic pain G89.29 and Gastroesophageal reflux disease without esophagitis K21.9 [place] [address] [place] [id number] [address] [place] [phone] Jan, [place] [id number] [facility] [id number] [address] [place] [phone] Jan, Acquired hypothyroidism E03. 9 [facility], [place] [address] [facility] [id number] [address] [place] [phone] Jan, [facility] [place] [address] [facility] [id number] [address] [place] [phone] Jan, Acquired hypothyroidism E03. 9 [place] [address] [facility] [id number] [address] [place] [phone] December, Major depressive disorder in full remission, unspecified whether recurrent F32.5 [place] [address] [facility] [id number] [address] [place] [address] Nov, Acquired hypothyroidism E03. 9 [place] [address] [place] [id number] [address] [place] [address] Nov, Pure hypercholesterolemia E7 8.0 ; Peripheral edema R60.9 and Acquired hypothyroidism E03.9 [place] [id number] [facility] [id number] [address] [place] [phone] Oct, Mild acid reflux K21.9 [place] [address] [facility] [id number] [address] [place] [phone] Sep, Major depressive disorder, s glenny episode, in partial remission F32.4 and Long-term use of high-risk medication Z79.899 [place] [address] [facility] [id number] [address] [place] [phone] Aug, Encounter for immunization Z 23 [place] [address] [place] [id number] [address] [place] [address] Jul, [place] [address] [place] [id number] [address] [place] [address] Jun, Medicare annual wellness vis it, initial Z00.00 ; BMI 40.0-44.9, adult Z68.41 and Encounter for immunization Z23 [place] [address] [facility] [id number] [address] [place] [phone] May, [facility] [place] [address] [facility] [id number] [address] [place] [phone] May, Encounter for immunization Z 23 [facility] [place] [address] [facility] [id number] [address] [place] [phone] 10 May, 2017 Major depression in partial remission F32.4 [facility] [place] [address] [facility] [id number] [address] [place] [phone] 11 Apr, 2017 Hearing loss H91.90 ; Encoun ter for immunization Z23 and Encounter for screening mammogram for breast cancer Z12.31 [place] [address] [facility] [id number] [address] [place] [phone] Mar, Acquired hypothyroidism E03. 9 [place] [address] [facility] [id number] [address] [place] [phone] Jan, Acquired hypothyroidism E03. 9 [place] [address] [facility] [id number] [address] [place] [phone] Jan, Acute midline low back pain without sciatica M54.5 [place] [address] [facility] [id number] [address] [place] [phone] Jan, Peripheral edema R60.9 [place] [id number] [facility] [id number] [address] [place] [address] Jan, Major depression in partial remission F32.4 [facility], [place] [address] [facility] [id number] [address] [place] [phone] Jan, Localized edema R60.0 [facility] [place] [address] [facility] [id number] [address] [place] [phone] Nov, Pure hypercholesterolemia E7 8.0 [place] [address] [facility] [id number] [address] [place] [address] Nov, Pure hypercholesterolemia E7 8.0 [facility] [place] [address] [facility] [id number] [address] [place] [phone] Nov, Peripheral edema R60.9 [facility] [place] [address] [id number] [address] [place] [phone] Oct, Major depression in partial remission F32.4 [facility] [place] [address] [facility] [id number] [address] [place] [phone] Aug, [facility] [place] [address] [facility] [id number] [address] [place] [phone] Aug, Elevated blood pressure read ing R03.0 [facility] [place] [address] [facility] [id number] [address] [place] [phone] Aug, [facility] [place] [address] [facility] [id number] [address] [place] [address] Jun, Major depression in partial remission F32.4 [facility] [place] [address] [facility] [id number] [address] [place] [phone] Apr, Major depressive disorder, r ecurrent episode, mild F33.0 [facility] [place] [address] [facility] [id number] [address] [place] [address] Mar, Encounter for well woman exa m with routine gynecological exam Z01.419 and Breast cancer screening Z12.39 [place] [address] [facility] [id number] [address] [place] [phone] Jan, Hypothyroidism, unspecified type E03.9 [place] [address] [facility] [id number] [address] [place] [address] Jan, Major depressive disorder, r ecurrent episode, mild F33.0 [facility] [place] [address] [facility] [id number] [address] [place] [address] Jan, Abscess L02.91 [place] [address] [facility] [id number] [address] [place] [phone] Jan, Furuncle L02.92 [place] [address] [facility] [id number] [address] [place] [phone] Jan, Major depression in partial remission F32.4 [facility] [place] [address] [facility] [id number] [address] [place] [address] 13 Jan, 2016 Major depressive disorder, r ecurrent episode, mild F33.0 [facility] [address] [facility] [id number] [address] [place] [address] December, Acute bacterial conjunctivit is of left eye H10.022 [place] [address] [facility] [id number] [address] [place] [address] December, Major depressive disorder, r ecurrent episode, mild F33.0 [facility] [place] [address] [facility] [id number] [address] [place] [phone] Nov, [place] [address] [facility] [id number] [address] [place] [address] Nov, Major depressive disorder, r ecurrent episode, mild F33.0 [place] [id number] [place] [address] Nov, Hearing loss H91.90 [place] [address] [facility] [id number] [address] [place] [phone] 17 Oct, 2015 Major depression in partial remission F32.4 [place] [address] [facility] [id number] [address] [place] [address] 15 Oct, 2015 Pneumonia J18.9 [facility] [address] [facility] [id number] [address] [place] [address] 10 Oct, 2015 Influenza A J10.1 ; Fever, u nspecified R50.9 ; Conjunctivitis H10.9 and Cough R05 [place] [address] [facility] [id number] [address] [place] [phone] 10 Oct, 2015 Major depressive disorder, r ecurrent episode, severe, 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 [place] [id number] [facility] [id number] [address] [place] [address] Aug, [place] [address] [facility] [id number] [address] [place] [phone] Aug, Acquired hypothyroidism E03. 9 and Pure hypercholesterolemia E78.0 [facility] [place] [address] [facility] [id number] [address] [place] [phone] Aug, Major depressive disorder, r ecurrent episode, severe, 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 [facility] [place] [address] [facility] [id number] [address] [place] [phone] Jul, [facility] [place] [address] [place] [id number] [address] [place] [address] Jul, Major depressive disorder, r ecurrent episode, severe, 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 [facility] [place] [address] [place] [id number] [address] [place] [address] Jun, Major depressive disorder, r ecurrent episode, severe, 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 [facility] [place] [address] [place] [id number] [address] [place] [address] May, [facility] [place] [address] [place] [id number] [address] [place] [address] May, Major depressive disorder, r ecurrent episode, severe, 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 [facility] [place] [address] [place] [id number] [address] [place] [address] May, Major depressive disorder, r ecurrent episode, severe, 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 [facility] [place] [address] [place] [id number] [address] [place] [phone] Apr, [facility] [place] [address] [place] [id number] [address] [place] [address] Apr, Depressive disorder, not els ewhere classified 311 and Unspecified psychosis 298.9 [facility] [place] [address] [place] [id number] [address] [place] [address] Apr, Depression 311 and Hard of h earing 389.9 [facility] [place] [address] [place] [id number] [address] [place] [address] 10 Apr, 2015 Schizoaffective disorder 295 .70 [facility] [place] [address] [place] [id number] [address] [place] [address] 08 Apr, 2015 Major depressive disorder, r ecurrent episode, severe, specified as with psychotic behavior 296.34 [facility] [place] [address] [facility] [id number] [address] [place] [address] Apr, Psychosis 298.9 and Depressi on 311 [facility] [place] [address] [facility] [id number] [address] [place] [id number] Apr, Depressive disorder, not els ewhere classified 311 and Unspecified psychosis 298.9 [facility], [place] [address] [facility] [id number] [address] [place] [phone] Mar, Screening for cervical cance r V76.2 ; Well woman exam with routine gynecological exam V72.31 ; Colon cancer screening V76.51 ; Breast cancer screening V76.10 ; Irritable bowel syndrome 564.1 and Psychosis 298.9 [facility], [place] [address] [place] [id number] [address] [place] [id number] Mar, Psychosis 298.9 [facility], [place] [address] [facility] [id number] [address] [place] [id number] Mar, Unspecified psychosis 298.9 [facility], [place] [address] [facility] [id number] [address] [place] [id number] Nov, [facility], [place] [address] [place] [id number] [address] [place] [id number] Nov, [facility], [place] [address] [facility] [id number] [address] [place] [id number] Oct, [facility] [place] [address] [facility] [id number] [address] [place] [id number] Oct, [facility], [place] [address] [place] [id number] [address] [place] [id number] Jul, [facility], [place] [address] [facility] [id number] [address] [place] [id number] Jul, [facility], [place] [address] [place] [id number] [address] [place] [phone] May, [facility] [address] [id number] [facility] [place] [address] Apr, [facility] [address] [id number] [address] [place] [address], [place] [address] Apr, [facility] [address] [id number] [address] [place] [address], [place] [id number] Apr, [facility] [address] [id number] [address] [place] [address], [place] [address] Apr, [facility] [address] [id number] [address] [place] [address], [place] [address] Apr, [facility] [address] [id number] [address] [place] [address], [place] [address] Mar, [facility] [address] [id number] [address] [place] [address], [place] [address] Mar, [facility] [address] [id number] [address] [place] [address], [place] [address] Mar, [facility] [address] [id number] [address] [place] [address], [place] [address] Mar, [facility] [address] [id number] [address] [place] [address], [place] [address] Mar, [facility] [address] [id number] [address] [place] [address], [place] [address] Mar, [facility] [address] [id number] [address] [place] [address], [place] [address] Mar, [facility] [address] [id number] [address] [place] [address], [place] [address] Mar, [facility] [address] [id number] [address] [place] [address], [place] [address] Mar, [facility] [address] [id number] [address] [place] [address], [place] [address] Mar, [facility] [address] [id number] [address] [place] [address], [place] [address] 14 Jan, 2014 [facility] [address] [id number] [address] [place] [address], [place] [address] 14 Jan, 2014 [facility] [address] [id number] [address] [place] [address], [place] [address] December, [facility] [address] [id number] [address] [place] [address], [place] [address] December, [facility] [address] [id number] [address] [place] [address], [place] [address] Nov, [facility] [address] [id number] [address] [place] [address], [place] [address] Nov, [facility] [address] [id number] [address] [place] [address], [place] [address] Sep, [facility] [address] [id number] [address] [place] [address], [place] [address] Sep, [facility] [address] [id number] [address] [place] [address], [place] [address] Sep, [facility] [address] [id number] [address] [place] [address], [place] [address] Sep, [facility] [address] [id number] [address] [place] [address], [place] [address] 14 Jun, 2013 [facility] [address] [id number] [address] [place] [address], [place] [address] Jun, [facility] [address] [id number] [address] [place] [address], [place] [address] Jun, [facility] [address] [id number] [address] [place] [address], [place] [address] Jun, [facility] [address] [id number] [address] [place] [address], [place] [address] 16 May, 2013 [facility] [address] [id number] [address] [place] [address], [place] [address] May, [facility] [address] [id number] [address] [place] [address], [place] [address] Apr, [facility] [address] [id number] [address] [place] [address], [place] [address] Mar, [facility] [address] [id number] [address] [place] [address], [place] [address] Mar, [facility] [address] [id number] [address] [place] [address], [place] [address] Mar, [facility] [address] [id number] [address] [place] [address], [place] [address] Mar, [facility] [address] [id number] [address] [place] [address], [place] [address] Mar, [facility] [address] [id number] [address] [place] [address], [place] [address] Jan, [facility] [address] [id number] [address] [place] [address], [place] [address] Jan, [facility] [address] [id number] [address] [place] [address], [place] [address] Jan, [facility] [address] [id number] [address] [place] [address], [place] [address] December, [facility] [address] [id number] [address] [place] [address], [place] [address] Oct, [facility] [address] [id number] [address] [place] [address], [place] [address] Oct, [facility] [address] [id number] [address] [place] [address], [place] [address] Oct, [facility] [address] [id number] [address] [place] [address], [place] [address] Oct, [facility] [address] [id number] [address] [place] [address], [place] [address] Aug, [facility] [address] [id number] [address] [place] [address], [place] [address] 16 Jun, 2012 [facility] [address] [id number] [address] [place] [address], [place] [address] 16 Jun, 2012 [facility] [address] [id number] [address] [place] [address], [place] [address] Jun, [facility] [address] [id number] [address] [place] [address], [place] [address] Jun, [facility] [address] [id number] [address] [place] [address], [place] [address] 05 May, 2012 [facility] [address] [id number] [address] [place] [address], [place] [address] Apr, [facility] [address] [id number] [address] [place] [address], [place] [address] Mar, [facility] [address] [id number] [address] [place] [address], [place] [address] Jan, [facility] [address] [id number] [address] [place] [address], [place] [address] Jan, [facility] [address] [id number] [address] [place] [address], [place] [address] December, [facility] [address] [id number] [address] [place] [address], [place] [address] December, [facility] [address] [id number] [address] [place] [address], [place] [address] December, [facility] [address] [id number] [address] [place] [address], [place] [address] December, [facility] [address] [id number] [address] [place] [address], [place] [address] Nov, [facility] [address] [id number] [address] [place] [address], [place] [address] Oct, [facility] [address] [id number] [address] [place] [address], [place] [address] Sep, [facility] [place] [address] [id number] [address] [place] [address] Sep, [facility] [place] [address] [id number] [address] [place] [address] Sep, [facility] [place] [address] [id number] [address] [place] [address] Sep, [facility] [place] [address] [id number] [address] [place] [address] Aug, [facility] [place] [address] [id number] [address] [place] [address] Jun, [facility] [place] [address] [id number] [address] [place] [address] May, [facility] [place] [address] [id number] [address] [place] [address] Mar, [facility] [place] [address] [id number] [address] [place] [address] Jun, [facility] [place] [address] [id number] [address] [place] [address] May, [facility] [place] [address] [id number] [address] [place] [address] May, IMMUNIZATIONS No Known Immunizations SOCIAL HISTORY [...]
--- OUTSIDE RECORDS SUMMARY | 2020-02-21 11:43 | XMS REPORT ---
Author Author Tarik POTTS Organization [facility] Address [address] [place] [address] Care Team Providers Care Arts Education Teacher Name Role Phone ROMA OPTTS Unavailable PROBLEMS Type Condition ICD9-CM Code VKE55-UG Code Onset Dates Condition S tatus SNOMED Code Problem Osteopenia after menopause M81.0 Act mode 323684437 Problem Acquired hypothyroidism E03.9 Active 881944426 Problem Hearing loss of both ears H91.93 Acti ve 15477639 Problem Depression, major, 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 Active 58436347 Problem Pressure injury of left buttock, stage 2 L89.322 Active 014206102 Problem Hyperlipidemia, unspecified hyperlipidemia type E7 8.5 Active 12525132 Problem Pressure ulcer of left buttock, stage 3 L89.323 Active 187643833 Problem Gastroesophageal reflux disease without esophagitis K21.9 Active 700015814 Problem 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 Active 82615766 Problem Pure hypercholesterolemia E78.0 Acti ve 961125557 Problem Post menopausal syndrome N95.1 Activ e 112957765 Problem Decubitus ulcer of left leg, stage 2 L89.892 Active 644732867 Problem Falling R29.6 Active 978450771 Problem Pharyngoesophageal dysphagia R13.14 A ctive 06900002 ALLERGIES No Information ENCOUNTERS Encounter Location Date Diagnosis [facility] [address] [facility] [id number] [address] [place] [id number] December, [place] [address] [facility] [id number] [address] [place] [id number] 21 Nov, 2019 Exercise counseling Z71.82 [facility] [address] [facility] [id number] [address] [place] [id number] Nov, Exercise counseling Z71.82 [facility] [address] [facility] [id number] [address] [place] [id number] 07 Nov, 2019 Exercise counseling Z71.82 [facility] [address] [facility] [id number] [address] [place] [id number] 31 Oct, 2019 Exercise counseling Z71.82 [facility] [address] [place] [id number] [address] [place] [address] 24 Oct, 2019 Exercise counseling Z71.82 [facility] [address] [place] [id number] [place] [address] 17 Oct, 2019 Exercise counseling Z71.82 [place] [address] [place] [id number] [place] [address] 12 Oct, 2019 Exercise counseling Z71.82 [place] [address] [place] [id number] [place] [phone] 05 Oct, 2019 Exercise counseling Z71.82 [place] [address] [address] 26 Sep, 2019 Falling R29.6 ; Pharyngoesop hageal dysphagia R13.14 and Pressure ulcer of left buttock, stage 3 L89.323 [place] [address] [place] [id number] [address] [place] [id number] 20 Sep, 2019 Exercise counseling Z71.82 [place] [address] [place] [id number] [address] [place] [id number] 18 Sep, 2019 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 and Falling R29.6 [place] [address] [place] [id number] [address] [place] [phone] Sep, [place] [address] [address] Sep, Falling R29.6 [place] [address] [place] [id number] [address] [place] [phone] 06 Sep, 2019 [place] [address] [place] [id number] [place] [address] Sep, Acquired hypothyroidism E03. 9 and Falling R29.6 [facility] [address] [facility] [id number] [address] [place] [phone] Aug, Depression, major, in [facility] F32.5 [facility] [address] [facility] [id number] [address] [place] [phone] May, Depression, major, in [facility] F32.5 [facility] [address] [facility] [id number] [address] [place] [address] May, Wound of left lower extremit y, subsequent encounter S81.802D [facility] [address] [facility] [id number] [address] [place] [phone] May, Wound of left lower extremit y, subsequent encounter S81.802D [place] [address] [place] [id number] [address] [place] [address] May, Wound of left lower extremit y, subsequent encounter S81.802D [place] [address] [facility] [id number] [address] [place] [address] May, Wound of left lower extremit y, subsequent encounter S81.802D [facility] [address] [facility] [id number] [address] [place] [phone] May, [facility] [address] [place] [id number] [address] [place] [address] May, Peripheral edema R60.9 ; Dec ubitus ulcer of left leg, stage 2 L89.892 ; Dry skin dermatitis L85.3 ; Encounter for immunization Z23 and Breast cancer screening Z12.39 [facility] [address] [facility] [id number] [address] [place] [address] Mar, [facility] [address] [facility] [id number] [address] [place] [phone] Jan, Depression, major, in [facility] F32.5 and Morbid obesity E66.01 [facility] [address] [id number] [address] [place] [phone] Jan, Encounter for Medicare ro muller wellness exam Z00.00 ; Hyperlipidemia, unspecified hyperlipidemia type E78.5 ; Depression, major, 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 ; Gastroesophageal reflux disease without esophagitis K21.9 ; Acquired hypothyroidism E03.9 ; Hearing loss of both ears H91.93 ; Post menopausal syndrome N95.1 and Morbid obesity E66.01 [facility] [address] [id number] [address] [place] [phone] Jan, Hyperlipidemia, unspecified hyperlipidemia type E78.5 and Morbid obesity E66.01 [facility] [address] [id number] [address] [place] [address] Jan, [facility] [address] [id number] [address] [place] [address] December, [facility] [address] [id number] [address] [place] [address] December, [facility] [address] [id number] [address] [place] [address] December, [facility] [address] [id number] [address] [place] [phone] December, Wound of left lower extremit y, subsequent encounter S81.802D [facility] [address] [id number] [address] [place] [phone] Nov, [facility] [address] [id number] [address] [place] [address] Nov, Blister of left lower extrem ity without infection, initial encounter S80.822A and Morbid obesity E66.01 [facility] [address] [id number] [address] [place] [phone] Nov, [facility] [address] [id number] [address] [place] [phone] Nov, [facility] [address] [id number] [address] [place] [phone] Nov, [facility] [address] [id number] [address] [place] [phone] Nov, [facility] [address] [id number] [address] [place] [phone] Nov, [facility] [address] [id number] [address] [place] [phone] Nov, [facility] [address] [id number] [address] [place] [phone] Oct, [facility] [address] [id number] [address] [place] [phone] Oct, Depression, major, in remiss ion F32.5 [facility] [address] [id number] [address] [place] [phone] Oct, [facility] [address] [id number] [address] [place] [phone] Oct, [facility] [address] [id number] [address] [place] [address] Oct, [facility] [address] [facility] [id number] [address] [place] [address] Oct, Morbid obesity E66.01 and Pr essure injury of left buttock, stage 2 L89.322 [facility] [address] [id number] [address] [place] [phone] Oct, [facility] [address] [id number] [address] [place] [phone] Oct, [facility] [address] [id number] [address] [place] [phone] Oct, [facility] [address] [facility] [id number] [address] [place] [id number] 06 Oct, 2018 Pressure injury of other sit e, stage 2 L89.892 and Morbid obesity E66.01 [facility] [address] [place] [address] 25 Sep, 2018 Cellulitis of other specifie d site L03.818 and BMI 40.0-44.9, adult Z68.41 [place] [address] [phone] 13 Sep, 2018 Scab R23.4 and BMI 40.0-44.9 , adult Z68.41 [place] [address] [address] Jun, Major depression in remissio n F32.5 [place] [address] [address] Apr, [place] [address] [id number] Apr, Encounter for breast cancer screening other than mammogram Z12.39 ; Encounter for immunization Z23 and Colon cancer screening Z12.11 [place] [address] [id number] Mar, Major depression in partial remission F32.4 and BMI 40.0-44.9, adult Z68.41 [place] [address] [place] [id number] [address] [place] [address] Mar, [place] [address] [address] Mar, Acquired hypothyroidism E03. 9 [place] [address] [address] Mar, Pain in left knee M25.562 ; Other chronic pain G89.29 and Gastroesophageal reflux disease without esophagitis K21.9 [place] [address] [place] [id number] [address] [place] [address] Jan, [place] [address] [address] Jan, Acquired hypothyroidism E03. 9 [place] [address] [facility] [id number] [address] [place] [address] Jan, [place] [address] [facility] [id number] [address] [place] [phone] Jan, Acquired hypothyroidism E03. 9 [place] [address] [facility] [id number] [address] [place] [phone] December, Major depressive disorder in full remission, unspecified whether recurrent F32.5 [facility] [address] [facility] [id number] [address] [place] [address] Nov, Acquired hypothyroidism E03. 9 [place] [address] [facility] [id number] [address] [place] [address] Nov, Pure hypercholesterolemia E7 8.0 ; Peripheral edema R60.9 and Acquired hypothyroidism E03.9 [place] [address] [facility] [id number] [address] [place] [address] Oct, Mild acid reflux K21.9 [place] [address] [facility] [id number] [address] [place] [phone] Sep, Major depressive disorder, s glenny episode, in partial remission F32.4 and Long-term use of high-risk medication Z79.899 [place] [address] [place] [id number] [address] [place] [address] Aug, Encounter for immunization Z 23 [place] [address] [place] [id number] [address] [place] [id number] Jul, [place] [address] [facility] [id number] [address] [place] [address] Jun, Medicare annual wellness vis it, initial Z00.00 ; BMI 40.0-44.9, adult Z68.41 and Encounter for immunization Z23 [facility] [address] [facility] [id number] [address] [place] [address] May, [place] [address] [facility] [id number] [address] [place] [id number] May, Encounter for immunization Z 23 [facility] [address] [id number] [address] [place] [id number] 10 May, 2017 Major depression in partial remission F32.4 [facility] [address] [facility] [id number] [address] [place] [phone] Apr, Hearing loss H91.90 ; Encoun ter for immunization Z23 and Encounter for screening mammogram for breast cancer Z12.31 [facility] [address] [id number] [address] [place] [address] Mar, Acquired hypothyroidism E03. 9 [facility] [address] [facility] [id number] [address] [place] [phone] Jan, Acquired hypothyroidism E03. 9 [facility] [address] [facility] [id number] [address] [place] [phone] Jan, Acute midline low back pain without sciatica M54.5 [place] [address] [facility] [id number] [address] [place] [phone] Jan, Peripheral edema R60.9 [facility] [address] [facility] [id number] [address] [place] [phone] Jan, Major depression in partial remission F32.4 [facility] [address] [facility] [id number] [address] [place] [phone] Jan, Localized edema R60.0 [facility] [address] [facility] [id number] [address] [place] [phone] Nov, Pure hypercholesterolemia E7 8.0 [facility] [address] [facility] [id number] [address] [place] [address] Nov, Pure hypercholesterolemia E7 8.0 [facility] [address] [facility] [id number] [address] [place] [phone] Nov, Peripheral edema R60.9 [facility] [address] [facility] [id number] [address] [place] [address] Oct, Major depression in partial remission F32.4 [place] [address] [id number] [address] [place] [phone] Aug, [facility] [address] [id number] [address] [place] [address] Aug, Elevated blood pressure read ing R03.0 [facility] [address] [id number] [address] [place] [phone] Aug, [facility] [address] [facility] [id number] [address] [place] [address] Jun, Major depression in partial remission F32.4 [facility] [address] [id number] [address] [place] [id number] Apr, Major depressive disorder, r ecurrent episode, mild F33.0 [place] [address] [facility] [id number] [address] [place] [address] Mar, Encounter for well woman exa m with routine gynecological exam Z01.419 and Breast cancer screening Z12.39 [facility] [address] [id number] [address] [place] [address] Jan, Hypothyroidism, unspecified type E03.9 [place] [address] [id number] [address] [place] [address] Jan, Major depressive disorder, r ecurrent episode, mild F33.0 [place] [address] [id number] [address] [place] [address] 30 Jan, 2016 Abscess L02.91 [place] [address] [id number] [address] [place] [address] Jan, Furuncle L02.92 [place] [address] [facility] [id number] [address] [place] [id number] 16 Jan, 2016 Major depression in partial remission F32.4 [facility] [address] [id number] [address] [place] [id number] 13 Jan, 2016 Major depressive disorder, r ecurrent episode, mild F33.0 [facility] [address] [facility] [id number] [address] [place] [phone] December, Acute bacterial conjunctivit is of left eye H10.022 [place] [address] [place] [id number] [address] [place] [address] December, Major depressive disorder, r ecurrent episode, mild F33.0 [place] [address] [place] [address] Nov, [place] [address] [address] Nov, Major depressive disorder, r ecurrent episode, mild F33.0 [place] [address] [address] Nov, Hearing loss H91.90 [place] [address] [place] [id number] [address] [place] [address] Oct, Major depression in partial remission F32.4 [place] [address] [place] [id number] [address] [place] [address] Oct, Pneumonia J18.9 [facility] [address] [address] Oct, Influenza A J10.1 ; Fever, u nspecified R50.9 ; Conjunctivitis H10.9 and Cough R05 [place] [address] [place] [address] Oct, Major depressive disorder, r ecurrent episode, severe, 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 [place] [address] [place] [address] Aug, [place] [address] [place] [address] Aug, Acquired hypothyroidism E03. 9 and Pure hypercholesterolemia E78.0 [place] [address] [place] [id number] [address] [place] [address] Aug, Major depressive disorder, r ecurrent episode, severe, 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 [facility] [address] [facility] [id number] [address] [place] [phone] Jul, [facility] [address] [facility] [id number] [address] [place] [address] Jul, Major depressive disorder, r ecurrent episode, severe, 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 [facility] [address] [facility] [id number] [address] [place] [address] Jun, Major depressive disorder, r ecurrent episode, severe, 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 [facility] [address] [facility] [id number] [address] [place] [id number] May, [facility] [address] [facility] [id number] [address] [place] [phone] May, Major depressive disorder, r ecurrent episode, severe, 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 [facility] [address] [facility] [id number] [address] [place] [address] May, Major depressive disorder, r ecurrent episode, severe, 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 [facility] [address] [facility] [id number] [address] [place] [address] Apr, [facility] [address] [place] [id number] [address] [place] [address] Apr, Depressive disorder, not els ewhere classified 311 and Unspecified psychosis 298.9 [facility] [address] [facility] [id number] [address] [place] [address] Apr, Depression 311 and Hard of h earing 389.9 [facility] [address] [facility] [id number] [address] [place] [address] 10 Apr, 2015 Schizoaffective disorder 295 .70 [facility] [address] [facility] [id number] [address] [place] [address] 08 Apr, 2015 Major depressive disorder, r ecurrent episode, severe, specified as with psychotic behavior 296.34 [facility] [address] [id number] [address] [place] [address] Apr, Psychosis 298.9 and Depressi on 311 [facility] [address] [id number] [address] [place] [address] Apr, Depressive disorder, not els ewhere classified 311 and Unspecified psychosis 298.9 [facility] [address] [facility] [id number] [address] [place] [address] Mar, Screening for cervical cance r V76.2 ; Well woman exam with routine gynecological exam V72.31 ; Colon cancer screening V76.51 ; Breast cancer screening V76.10 ; Irritable bowel syndrome 564.1 and Psychosis 298.9 [facility] [address] [facility] [id number] [address] [place] [address] Mar, Psychosis 298.9 [facility] [address] [facility] [id number] [address] [place] [phone] Mar, Unspecified psychosis 298.9 [facility] [address] [facility] [id number] [address] [place] [address] Nov, [facility] [address] [facility] [id number] [address] [place] [phone] Nov, [facility] [address] [facility] [id number] [address] [place] [id number] Oct, [facility] [address] [facility] [id number] [address] [place] [phone] Oct, [facility] [address] [facility] [id number] [address] [place] [id number] Jul, [facility] [address] [facility] [id number] [address] [place] [phone] Jul, [facility] [address] [facility] [id number] [address] [place] [address] May, [facility] [address] [facility] [id number] [address] [place] [address] Apr, [facility] [place] [facility] [address] [id number] [facility] [place] [address] Apr, [facility] [place] [facility] [address] [id number] [facility] [place] [address] Apr, [facility] [address] [id number] [facility] [place] [address] Apr, [facility] [address] [id number] [address] [place] [address], [place] [address] Apr, [facility] [address] [id number] [facility] [place] [address] Mar, [facility] [address] [id number] [address] [place] [address], [place] [address] Mar, [facility] [address] [id number] [address] [place] [address], [place] [address] Mar, [facility] [address] [id number] [address] [place] [address], [place] [address] Mar, [facility] [address] [id number] [address] [place] [address], [place] [address] Mar, [facility] [address] [id number] [address] [place] [address], [place] [address] Mar, [facility] [address] [id number] [address] [place] [address], [place] [address] Mar, [facility] [address] [id number] [address] [place] [address], [place] [address] Mar, [facility] [address] [id number] [address] [place] [address], [place] [address] Mar, [facility] [address] [id number] [address] [place] [address], [place] [address] Mar, [facility] [address] [id number] [address] [place] [address], [place] [address] Jan, [facility] [address] [id number] [address] [place] [address], [place] [address] Jan, [facility] [address] [id number] [address] [place] [address], [place] [address] December, [facility] [address] [id number] [address] [place] [address], [place] [address] December, [facility] [address] [id number] [address] [place] [address], [place] [address] Nov, [facility] [address] [id number] [address] [place] [address], [place] [address] Nov, [facility] [address] [id number] [address] [place] [address], [place] [address] Sep, [facility] [address] [id number] [address] [place] [address], [place] [address] Sep, [facility] [address] [id number] [address] [place] [address], [place] [address] Sep, [facility] [address] [id number] [address] [place] [address], [place] [address] Sep, [facility] [address] [id number] [address] [place] [address], [place] [address] Jun, [facility] [address] [id number] [address] [place] [address], [place] [address] Jun, [facility] [address] [id number] [address] [place] [address], [place] [address] Jun, [facility] [address] [id number] [address] [place] [address], [place] [address] Jun, [facility] [address] [id number] [address] [place] [address], [place] [address] May, [facility] [address] [id number] [address] [place] [address], [place] [address] May, [facility] [address] [id number] [address] [place] [address], [place] [address] Apr, [facility] [address] [id number] [facility] [place] [address] Mar, [facility] [address] [id number] [address] [place] [address], [place] [address] Mar, [facility] [address] [id number] [address] [place] [address], [place] [address] Mar, [facility] [address] [id number] [address] [place] [address], [place] [address] Mar, [facility] [address] [id number] [address] [place] [address], [place] [address] Mar, [facility] [address] [id number] [address] [place] [address], [place] [address] Jan, [facility] [address] [id number] [address] [place] [address], [place] [address] Jan, [facility] [address] [id number] [address] [place] [address], [place] [address] Jan, [facility] [address] [id number] [address] [place] [address], [place] [address] December, [facility] [address] [id number] [address] [place] [address], [place] [address] Oct, [facility] [address] [id number] [address] [place] [address], [place] [address] Oct, [facility] [address] [id number] [address] [place] [address], [place] [address] Oct, [facility] [address] [id number] [address] [place] [address], [place] [address] Oct, [facility] [address] [id number] [address] [place] [address], [place] [address] Aug, [facility] [address] [id number] [address] [place] [address], [place] [address] Jun, [facility] [address] [id number] [address] [place] [address], [place] [address] Jun, [facility] [address] [id number] [address] [place] [address], [place] [address] Jun, [facility] [address] [id number] [address] [place] [address], [place] [address] Jun, [facility] [address] [id number] [address] [place] [address], [place] [address] May, [facility] [address] [id number] [address] [place] [address], [place] [address] Apr, [facility] [address] [id number] [address] [place] [address], [place] [address] Mar, [facility] [address] [id number] [address] [place] [address], [place] [address] Jan, [facility] [address] [id number] [address] [place] [address], [place] [address] Jan, [facility] [address] [id number] [address] [place] [address], [place] [address] December, [facility] [address] [id number] [address] [place] [address], [place] [address] December, [facility] [address] [id number] [address] [place] [address], [place] [address] December, [facility] [address] [id number] [address] [place] [address], [place] [address] December, [facility] [address] [id number] [address] [place] [address], [place] [address] Nov, [facility] [address] [id number] [address] [place] [address], [place] [address] Oct, [facility] [address] [id number] [address] [place] [address], [place] [address] Sep, [facility] [address] [id number] [address] [place] [address], [place] [address] Sep, [facility] [address] [id number] [address] [place] [address] Sep, [facility] [address] [id number] [address] [place] [address] Sep, [facility] [address] [id number] [address] [place] [address] Aug, [facility] [address] [facility] [id number] [address] [place] [address] Jun, [facility] [address] [facility] [id number] [address] [place] [address] May, [facility] [address] [facility] [id number] [address] [place] [address] Mar, [facility] [address] [facility] [id number] [address] [place] [address] Jun, [facility] [address] [facility] [id number] [address] [place] [address] May, [facility] [address] [facility] [id number] [address] [place] [address] May, IMMUNIZATIONS No Known Immunizations SOCIAL HISTORY Never Assessed REASON FOR VISIT PLAN OF CARE VITAL SIGNS MEDICATIONS Unknown Medications RESULTS No Results PROCEDURES No Known procedures INSTRUCTIONS MEDICATIONS ADMINISTERED No Known Medications MEDICAL (GENERAL) HISTORY Type Description Date Medical History depression Medical History hypothryroidism Medical History hyperlipidemia Medical History trauma: Stroke - with L side faci al drooping Surgical History hysterectomy Surgical History cholecystectomy Surgical History gall bladder removal Hospitalization History surgeries Hospitalization History stroke
--- OUTSIDE RECORDS SUMMARY | 2020-02-21 11:43 | XMS REPORT ---
Author Author Tarik POTTS Organization [facility] Address [address] [place] [address] Care Team Providers Care Hr Administrator Name Role Phone ROMA POTTS Unavailable PROBLEMS Type Condition ICD9-CM Code HFR89-QW Code Onset Dates Condition S tatus SNOMED Code Problem Osteopenia after menopause M81.0 Act mode 475273843 Problem Acquired hypothyroidism E03.9 Active 189322506 Problem Hearing loss of both ears H91.93 Acti ve 44755668 Problem Depression, major, 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 Active 31381456 Problem Pressure injury of left buttock, stage 2 L89.322 Active 632429593 Problem Hyperlipidemia, unspecified hyperlipidemia type E7 8.5 Active 41275318 Problem Pressure ulcer of left buttock, stage 3 L89.323 Active 708058748 Problem Gastroesophageal reflux disease without esophagitis K21.9 Active 781093955 Problem 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 Active 27456651 Problem Pure hypercholesterolemia E78.0 Acti ve 814420560 Problem Post menopausal syndrome N95.1 Activ e 928171464 Problem Decubitus ulcer of left leg, stage 2 L89.892 Active 739790081 Problem Falling R29.6 Active 980919300 Problem Pharyngoesophageal dysphagia R13.14 A ctive [id number] ALLERGIES No Information ENCOUNTERS Encounter Location Date Diagnosis [place] [address] [place] [id number] [address] [place] [address] December, [place] [address] [place] [address] Nov, [place] [address] [place] [id number] [address] [place] [address] Nov, Exercise counseling Z71.82 [place] [address] [address] 31 Oct, 2019 Exercise counseling Z71.82 [place] [address] [place] [address] 24 Oct, 2019 Exercise counseling Z71.82 [facility] [address] [address] 17 Oct, 2019 Exercise counseling Z71.82 [place] [address] [address] 12 Oct, 2019 Exercise counseling Z71.82 [place] [address] [address] 05 Oct, 2019 Exercise counseling Z71.82 [place] [address] [address] 26 Sep, 2019 Falling R29.6 ; Pharyngoesop hageal dysphagia R13.14 and Pressure ulcer of left buttock, stage 3 L89.323 [place] [address] [address] 20 Sep, 2019 Exercise counseling Z71.82 [place] [address] [address] 18 Sep, 2019 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 and Falling R29.6 [place] [address] [address] 13 Sep, 2019 [place] [address] [address] 12 Sep, 2019 Falling R29.6 [place] [address] [address] 06 Sep, 2019 [place] [address] [address] 05 Sep, 2019 Acquired hypothyroidism E03. 9 and Falling R29.6 [place] [address] [place] [id number] [place] [address] Aug, Depression, major, in [facility] F32.5 [facility] [address] [id number] [address] [place] [address] May, Depression, major, in [facility] F32.5 [facility] [address] [id number] [address] [place] [address] May, Wound of left lower extremit y, subsequent encounter S81.802D [facility] [address] [id number] [address] [place] [address] May, Wound of left lower extremit y, subsequent encounter S81.802D [facility] [address] [facility] [id number] [address] [place] [address] May, Wound of left lower extremit y, subsequent encounter S81.802D [facility] [address] [facility] [id number] [address] [place] [address] May, Wound of left lower extremit y, subsequent encounter S81.802D [facility] [address] [id number] [address] [place] [address] May, [facility] [address] [facility] [id number] [address] [place] [address] May, Peripheral edema R60.9 ; Dec ubitus ulcer of left leg, stage 2 L89.892 ; Dry skin dermatitis L85.3 ; Encounter for immunization Z23 and Breast cancer screening Z12.39 [facility] [address] [id number] [address] [place] [address] Mar, [facility] [address] [facility] [id number] [address] [place] [id number] Jan, Depression, major, in [facility] F32.5 and Morbid obesity E66.01 [facility] [address] [facility] [id number] [address] [place] [id number] Jan, Encounter for Medicare annua l wellness exam Z00.00 ; Hyperlipidemia, unspecified hyperlipidemia type E78.5 ; Depression, major, 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 ; Gastroesophageal reflux disease without esophagitis K21.9 ; Acquired hypothyroidism E03.9 ; Hearing loss of both ears H91.93 ; Post menopausal syndrome N95.1 and Morbid obesity E66.01 [facility] [address] [id number] [address] [place] [address] Jan, Hyperlipidemia, unspecified hyperlipidemia type E78.5 and Morbid obesity E66.01 [facility] [address] [id number] [address] [place] [address] Jan, [facility] [address] [id number] [address] [place] [address] December, [facility] [address] [id number] [address] [place] [address] December, [facility] [address] [id number] [address] [place] [address] December, [facility] [address] [id number] [address] [place] [address] December, Wound of left lower extremit y, subsequent encounter S81.802D [facility] [address] [id number] [address] [place] [address] Nov, [facility] [address] [id number] [address] [place] [address] Nov, Blister of left lower extrem ity without infection, initial encounter S80.822A and Morbid obesity E66.01 [facility] [address] [id number] [address] [place] [address] Nov, [facility] [address] [id number] [address] [place] [address] Nov, [facility] [address] [id number] [address] [place] [id number] Nov, [facility] [address] [id number] [address] [place] [address] Nov, [facility] [address] [id number] [address] [place] [address] Nov, [facility] [address] [id number] [address] [place] [address] Nov, [facility] [address] [id number] [address] [place] [id number] Oct, [facility] [address] [id number] [address] [place] [id number] Oct, Depression, major, in remiss ion F32.5 [facility] [address] [id number] [address] [place] [phone] Oct, [facility] [address] [id number] [address] [place] [id number] Oct, [facility] [address] [facility] [id number] [address] [place] [id number] Oct, [facility] [address] [id number] [address] [place] [address] Oct, Morbid obesity E66.01 and Pr essure injury of left buttock, stage 2 L89.322 [facility] [address] [id number] [address] [place] [address] Oct, [facility] [address] [id number] [address] [place] [address] Oct, [facility] [address] [facility] [id number] [address] [place] [address] Oct, [facility] [address] [id number] [address] [place] [address] Oct, Pressure injury of other sit e, stage 2 L89.892 and Morbid obesity E66.01 [facility] [address] [id number] [address] [place] [address] Sep, Cellulitis of other specifie d site L03.818 and BMI 40.0-44.9, adult Z68.41 [facility] [address] [id number] [address] [place] [id number] 13 Sep, 2018 Scab R23.4 and BMI 40.0-44.9 , adult Z68.41 [facility] [address] [id number] [address] [place] [id number] Jun, Major depression in remissio n F32.5 [facility] [address] [id number] [address] [place] [address] 27 Apr, 2018 [facility] [address] [id number] [address] [place] [id number] 24 Apr, 2018 Encounter for breast cancer screening other than mammogram Z12.39 ; Encounter for immunization Z23 and Colon cancer screening Z12.11 [facility] [address] [facility] [id number] [address] [place] [address] 30 Mar, 2018 Major depression in partial remission F32.4 and BMI 40.0-44.9, adult Z68.41 [facility] [address] [id number] [address] [place] [address] Mar, [facility] [address] [id number] [address] [place] [id number] Mar, Acquired hypothyroidism E03. 9 [facility] [address] [id number] [address] [place] [address] Mar, Pain in left knee M25.562 ; Other chronic pain G89.29 and Gastroesophageal reflux disease without esophagitis K21.9 [facility] [address] [id number] [address] [place] [id number] Jan, [facility] [address] [id number] [address] [place] [address] Jan, Acquired hypothyroidism E03. 9 [facility] [address] [id number] [address] [place] [id number] Jan, [facility] [address] [facility] [id number] [address] [place] [id number] Jan, Acquired hypothyroidism E03. 9 [facility] [address] [id number] [address] [place] [address] December, Major depressive disorder in full remission, unspecified whether recurrent F32.5 [facility] [address] [facility] [id number] [address] [place] [id number] Nov, Acquired hypothyroidism E03. 9 [place] [address] [facility] [id number] [address] [place] [id number] Nov, Pure hypercholesterolemia E7 8.0 ; Peripheral edema R60.9 and Acquired hypothyroidism E03.9 [place] [address] [facility] [id number] [address] [place] [id number] Oct, Mild acid reflux K21.9 [place] [address] [facility] [id number] [address] [place] [phone] Sep, Major depressive disorder, s glenny episode, in partial remission F32.4 and Long-term use of high-risk medication Z79.899 [place] [address] [facility] [id number] [address] [place] [address] Aug, Encounter for immunization Z 23 [place] [address] [facility] [id number] [address] [place] [id number] Jul, [place] [address] [id number] [address] [place] [address] Jun, Medicare annual wellness vis it, initial Z00.00 ; BMI 40.0-44.9, adult Z68.41 and Encounter for immunization Z23 [place] [address] [facility] [id number] [address] [place] [id number] May, [place] [address] [id number] [address] [place] [address] May, Encounter for immunization Z 23 [facility] [address] [facility] [id number] [address] [place] [address] May, Major depression in partial remission F32.4 [facility] [address] [facility] [id number] [address] [place] [address] 11 Apr, 2017 Hearing loss H91.90 ; Encoun ter for immunization Z23 and Encounter for screening mammogram for breast cancer Z12.31 [facility] [address] [id number] [address] [place] [id number] Mar, Acquired hypothyroidism E03. 9 [facility] [address] [id number] [address] [place] [id number] Jan, Acquired hypothyroidism E03. 9 [facility] [address] [facility] [id number] [address] [place] [id number] Jan, Acute midline low back pain without sciatica M54.5 [facility] [address] [facility] [id number] [address] [place] [id number] Jan, Peripheral edema R60.9 [facility] [address] [facility] [id number] [address] [place] [address] Jan, Major depression in partial remission F32.4 [facility] [address] [id number] [address] [place] [address] Jan, Localized edema R60.0 [facility] [address] [facility] [id number] [address] [place] [address] Nov, Pure hypercholesterolemia E7 8.0 [facility] [address] [facility] [id number] [address] [place] [id number] Nov, Pure hypercholesterolemia E7 8.0 [facility] [address] [id number] [address] [place] [address] Nov, Peripheral edema R60.9 [facility] [address] [facility] [id number] [address] [place] [id number] Oct, Major depression in partial remission F32.4 [facility] [address] [facility] [id number] [address] [place] [id number] Aug, [facility] [address] [id number] [address] [place] [id number] Aug, Elevated blood pressure read ing R03.0 [facility] [address] [facility] [id number] [address] [place] [id number] Aug, [place] [address] [id number] [address] [place] [address] Jun, Major depression in partial remission F32.4 [place] [address] [facility] [id number] [address] [place] [address] Apr, Major depressive disorder, r ecurrent episode, mild F33.0 [place] [address] [id number] [address] [place] [address] Mar, Encounter for well woman reta rios with routine gynecological exam Z01.419 and Breast cancer screening Z12.39 [place] [address] [id number] [address] [place] [address] Jan, Hypothyroidism, unspecified type E03.9 [facility] [address] [id number] [address] [place] [address] Jan, Major depressive disorder, r ecurrent episode, mild F33.0 [place] [address] [id number] [address] [place] [address] Jan, Abscess L02.91 [place] [address] [id number] [address] [place] [address] Jan, Furuncle L02.92 [place] [address] [id number] [address] [place] [id number] 16 Jan, 2016 Major depression in partial remission F32.4 [place] [address] [id number] [address] [place] [id number] Jan, Major depressive disorder, r ecurrent episode, mild F33.0 [facility] [address] [facility] [id number] [address] [place] [address] December, Acute bacterial conjunctivit is of left eye H10.022 [place] [address] [place] [id number] [address] [place] [address] December, Major depressive disorder, r ecurrent episode, mild F33.0 [facility] [address] [address] Nov, [facility] [address] [address] Nov, Major depressive disorder, r ecurrent episode, mild F33.0 [place] [address] [address] Nov, Hearing loss H91.90 [place] [address] [address] Oct, Major depression in partial remission F32.4 [place] [address] [address] Oct, Pneumonia J18.9 [facility] [address] [address] Oct, Influenza A J10.1 ; Fever, u nspecified R50.9 ; Conjunctivitis H10.9 and Cough R05 [place] [address] [place] [id number] [address] [place] [address] Oct, Major depressive disorder, r ecurrent episode, severe, 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 [place] [address] [place] [id number] [address] [place] [address] Aug, [place] [address] [address] Aug, Acquired hypothyroidism E03. 9 and Pure hypercholesterolemia E78.0 [place] [address] [address] Aug, Major depressive disorder, r ecurrent episode, severe, 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 [place] [address] [address] Jul, [facility] [address] [facility] [id number] [address] [place] [address] Jul, Major depressive disorder, r ecurrent episode, severe, 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 [facility] [address] [facility] [id number] [address] [place] [address] Jun, Major depressive disorder, r ecurrent episode, severe, 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 [facility] [address] [facility] [id number] [address] [place] [id number] May, [facility] [address] [facility] [id number] [address] [place] [id number] May, Major depressive disorder, r ecurrent episode, severe, 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 [facility] [address] [id number] [address] [place] [address] May, Major depressive disorder, r ecurrent episode, severe, 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 [facility] [address] [place] [id number] [address] [place] [address] Apr, [facility] [address] [place] [id number] [address] [place] [address] Apr, Depressive disorder, not els ewhere classified 311 and Unspecified psychosis 298.9 [place] [address] [place] [id number] [address] [place] [address] Apr, Depression 311 and Hard of h earing 389.9 [facility] [address] [facility] [id number] [address] [place] [address] Apr, Schizoaffective disorder 295 .70 [place] [address] [id number] [address] [place] [id number] 08 Apr, 2015 Major depressive disorder, r ecurrent episode, severe, specified as with psychotic behavior 296.34 [facility] [address] [id number] [address] [place] [address] Apr, Psychosis 298.9 and Depressi on 311 [facility] [address] [place] [id number] [address] [place] [address] Apr, Depressive disorder, not els ewhere classified 311 and Unspecified psychosis 298.9 [facility] [address] [id number] [address] [place] [address] Mar, Screening for cervical cance r V76.2 ; Well woman exam with routine gynecological exam V72.31 ; Colon cancer screening V76.51 ; Breast cancer screening V76.10 ; Irritable bowel syndrome 564.1 and Psychosis 298.9 [facility] [address] [id number] [address] [place] [address] Mar, Psychosis 298.9 [facility] [address] [id number] [address] [place] [address] Mar, Unspecified psychosis 298.9 [facility] [address] [id number] [address] [place] [address] Nov, [facility] [address] [id number] [address] [place] [address] Nov, [facility] [address] [id number] [address] [place] [id number] Oct, [facility] [address] [id number] [address] [place] [phone] Oct, [facility] [address] [id number] [address] [place] [phone] Jul, [facility] [address] [id number] [address] [place] [address] Jul, [facility] [address] [id number] [address] [place] [address] May, [facility] [address] [id number] [address] [place] [id number] Apr, [facility] [address] [id number] [address] [place] [address] Apr, [facility] [address] [id number] [facility] [place] [id number] 05 Apr, 2014 [facility] [address] [id number] [facility] [place] [id number] 05 Apr, 2014 [facility] [address] [id number] [facility] [place] [id number] Apr, [facility] [address] [id number] [address] [place] [address], [place] [id number] Mar, [facility] [address] [id number] [facility] [place] [address] Mar, [facility] [address] [id number] [address] [place] [address], [place] [id number] Mar, [facility] [address] [id number] [address] [place] [address], [place] [id number] Mar, [facility] [address] [id number] [address] [place] [address], [place] [id number] Mar, [facility] [address] [id number] [address] [place] [address], [place] [address] Mar, [facility] [address] [id number] [address] [place] [address], [place] [id number] Mar, [facility] [address] [id number] [address] [place] [address], [place] [address] Mar, [facility] [address] [id number] [address] [place] [address], [place] [id number] Mar, [facility] [address] [id number] [address] [place] [address], [place] [id number] Mar, [facility] [address] [id number] [address] [place] [address], [place] [address] Jan, [facility] [address] [id number] [address] [place] [address], [place] [address] Jan, [facility] [address] [id number] [address] [place] [address], [place] [id number] December, [facility] [address] [id number] [address] [place] [address], [place] [address] December, [facility] [address] [id number] [address] [place] [address], [place] [id number] Nov, [facility] [address] [id number] [address] [place] [address], [place] [address] Nov, [facility] [address] [id number] [address] [place] [address], [place] [address] Sep, [facility] [address] [id number] [address] [place] [address], [place] [id number] Sep, [facility] [address] [id number] [address] [place] [address], [place] [id number] Sep, [facility] [facility] [address] [id number] [address] [place] [address], [place] [id number] Sep, [facility] [address] [id number] [address] [place] [address], [place] [address] Jun, [facility] [address] [id number] [address] [place] [address], [place] [address] Jun, [facility] [address] [id number] [address] [place] [address], [place] [address] Jun, [facility] [address] [id number] [address] [place] [address], [place] [address] Jun, [facility] [address] [id number] [address] [place] [address], [place] [address] May, [facility] [address] [id number] [address] [place] [address], [place] [address] May, [facility] [address] [id number] [address] [place] [address], [place] [address] Apr, [facility] [address] [id number] [address] [place] [address], [place] [address] Mar, [facility] [address] [id number] [address] [place] [address], [place] [address] Mar, [facility] [address] [id number] [address] [place] [address], [place] [address] Mar, [facility] [address] [id number] [address] [place] [address], [place] [address] Mar, [facility] [address] [id number] [address] [place] [address], [place] [address] Mar, [facility] [address] [id number] [address] [place] [address], [place] [address] Jan, [facility] [address] [id number] [address] [place] [address], [place] [address] Jan, [facility] [address] [id number] [address] [place] [address], [place] [address] Jan, [facility] [address] [id number] [address] [place] [address], [place] [address] December, [facility] [address] [id number] [address] [place] [address], [place] [address] Oct, [facility] [address] [id number] [address] [place] [address], [place] [address] Oct, [facility] [address] [id number] [address] [place] [address], [place] [address] Oct, [facility] [address] [id number] [address] [place] [address], [place] [address] Oct, [facility] [address] [id number] [address] [place] [address], [place] [address] Aug, [facility] [address] [id number] [address] [place] [address], [place] [address] 16 Jun, 2012 [facility] [address] [id number] [address] [place] [address], [place] [address] 16 Jun, 2012 [facility] [address] [id number] [address] [place] [address], [place] [address] 14 Jun, 2012 [facility] [address] [id number] [address] [place] [address], [place] [address] Jun, [facility] [address] [id number] [address] [place] [address], [place] [address] May, [facility] [address] [id number] [address] [place] [address], [place] [address] Apr, [facility] [address] [id number] [address] [place] [address], [place] [address] Mar, [facility] [address] [id number] [address] [place] [address], [place] [address] Jan, [facility] [address] [id number] [address] [place] [address], [place] [address] Jan, [facility] [address] [id number] [address] [place] [address], [place] [address] December, [facility] [address] [id number] [address] [place] [address], [place] [address] December, [facility] [address] [id number] [address] [place] [address], [place] [address] December, [facility] [address] [id number] [address] [place] [address], [place] [address] December, [facility] [address] [id number] [address] [place] [address], [place] [address] Nov, [facility] [address] [id number] [address] [place] [address], [place] [address] Oct, [facility] [address] [id number] [address] [place] [address], [place] [address] Sep, [facility] [address] [id number] [address] [place] [address], [place] [address] Sep, [facility] [address] [id number] [address] [place] [address], [place] [address] Sep, [facility] [address] [id number] [address] [place] [address], [place] [address] Sep, [facility] [address] [id number] [address] [place] [id number] Aug, [facility] [address] [facility] [id number] [address] [place] [id number] Jun, [facility] [address] [facility] [id number] [address] [place] [id number] May, [facility] [address] [facility] [id number] [address] [place] [id number] Mar, [facility] [address] [facility] [id number] [address] [place] [id number] Jun, [facility] [address] [facility] [id number] [address] [place] [phone] May, [facility] [address] [facility] [id number] [address] [place] [id number] May, IMMUNIZATIONS No Known Immunizations SOCIAL HISTORY Never Assessed REASON FOR VISIT PLAN OF CARE VITAL SIGNS MEDICATIONS Unknown Medications RESULTS No Results PROCEDURES Procedure Date Ordered Result Body Site COMPLETE CBC W/AUTO DIFF WBC Mar 24, 2014 ASSAY THYROID STIM HORMONE Mar 24, 2014 LIPID PANEL Mar 24, 2014 COMPREHEN METABOLIC PANEL Mar 24, 2014 VENIPUNCT, ROUTINE* Mar 24, 2014 INSTRUCTIONS MEDICATIONS ADMINISTERED No Known Medications MEDICAL (GENERAL) HISTORY Type Description Date Medical History depression Medical History hypothryroidism Medical History hyperlipidemia Medical History trauma: Stroke - with L side faci al drooping Surgical History hysterectomy Surgical History cholecystectomy Surgical History gall bladder removal Hospitalization History surgeries Hospitalization History stroke
--- OUTSIDE RECORDS SUMMARY | 2020-02-21 11:43 | XMS REPORT ---
Author Author Tarik POTTS Organization [facility] Address [address] [place] [address] Care Team Providers Care Pipeline Inspector Name Role Phone ROMA POTTS Unavailable PROBLEMS Type Condition ICD9-CM Code HWK19-MN Code Onset Dates Condition S tatus SNOMED Code Problem Osteopenia after menopause M81.0 Act mode 728775023 Problem Acquired hypothyroidism E03.9 Active 191886654 Problem Hearing loss of both ears H91.93 Acti ve 95758652 Problem Depression, major, 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 Active 71613246 Problem Pressure injury of left buttock, stage 2 L89.322 Active 340961117 Problem Hyperlipidemia, unspecified hyperlipidemia type E7 8.5 Active 34638266 Problem Pressure ulcer of left buttock, stage 3 L89.323 Active 548778111 Problem Gastroesophageal reflux disease without esophagitis K21.9 Active 155372209 Problem 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 Active 74719346 Problem Pure hypercholesterolemia E78.0 Acti ve 741855956 Problem Post menopausal syndrome N95.1 Activ e 005962672 Problem Decubitus ulcer of left leg, stage 2 L89.892 Active 653710834 Problem Falling R29.6 Active 252181809 Problem Pharyngoesophageal dysphagia R13.14 A ctive [id number] ALLERGIES No Information ENCOUNTERS Encounter Location Date Diagnosis [facility] [address] [facility] [id number] [address] [place] [phone] December, [place] [id number] [facility] [place] [id number] [address] [place] [phone] 21 Nov, [address] [facility] [address] [facility] [place] [id number] [address] [place] [phone] Nov, Exercise counseling Z71.82 [facility] [address] [facility] [place] [id number] [address] [place] [phone] 07 Nov, [address] [facility] [address] [facility] [place] [id number] [address] [place] [phone] 31 Oct, [address] [facility] [address] [place] [id number] [address] [place] [phone] 24 Oct, [address] [facility] [address] [place] [id number] [place] [phone] 17 Oct, 2019 Exercise counseling Z71.82 [place] [address] [place] [id number] [place] [phone] 12 Oct, 2019 Exercise counseling Z71.82 [place] [address] [place] [id number] [place] [phone] 05 Oct, 2019 Exercise counseling Z71.82 [place] [address] [phone] 26 Sep, 2019 Falling R29.6 ; Pharyngoesop hageal dysphagia R13.14 and Pressure ulcer of left buttock, stage 3 L89.323 [place] [address] [place] [id number] [address] [place] [phone] 20 Sep, 2019 Exercise counseling Z71.82 [place] [address] [place] [id number] [address] [place] [phone] 18 Sep, 2019 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 and Falling R29.6 [place] [address] [place] [id number] [address] [place] [phone] Sep, [place] [address] [phone] Sep, Falling R29.6 [place] [address] [place] [id number] [address] [place] [phone] 06 Sep, 2019 [place] [address] [place] [address] [place] [address] Sep, Acquired hypothyroidism E03. [address] [facility] [address] [facility] [place] [id number] [address] [place] [phone] Aug, Depression, major, in [facility] ion F32.5 [facility] [address] [facility] [place] [id number] [address] [place] [phone] May, Depression, major, in [facility] ion F32.5 [facility] [address] [facility] [id number] [address] [place] [phone] May, Wound of left lower extremit y, subsequent encounter S81.802D [facility] [address] [facility] [place] [id number] [address] [place] [phone] May, Wound of left lower extremit y, subsequent encounter S81.802D [place] [address] [place] [id number] [address] [place] [phone] May, Wound of left lower extremit y, subsequent encounter S81.802D [place] [address] [facility] [id number] [address] [place] [phone] May, Wound of left lower extremit y, subsequent encounter S81.802D [facility] [address] [facility] [id number] [address] [place] [phone] May, [facility] [address] [place] [id number] [address] [place] [phone] May, Peripheral edema R60.9 ; Dec ubitus ulcer of left leg, stage 2 L89.892 ; Dry skin dermatitis L85.3 ; Encounter for immunization Z23 and Breast cancer screening Z12.39 [facility] [address] [facility] [id number] [address] [place] [phone] Mar, [facility] [address] [facility] [place] [id number] [address] [place] [phone] Jan, Depression, major, in [facility] ion F32.5 and Morbid obesity E66.01 [facility] [address] [id number] [address] [place] [phone] Jan, Encounter for Medicare ro muller wellness exam Z00.00 ; Hyperlipidemia, unspecified hyperlipidemia type E78.5 ; Depression, major, 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 ; Gastroesophageal reflux disease without esophagitis K21.9 ; Acquired hypothyroidism E03.9 ; Hearing loss of both ears H91.93 ; Post menopausal syndrome N95.1 and Morbid obesity E66.01 [facility] [address] [id number] [address] [place] [phone] Jan, Hyperlipidemia, unspecified hyperlipidemia type E78.5 and Morbid obesity E66.01 [facility] [address] [id number] [address] [place] [phone] Jan, [facility] [address] [id number] [address] [place] [phone] December, [facility] [address] [id number] [address] [place] [phone] December, [facility] [address] [id number] [place] [phone] December, [facility] [address] [id number] [address] [place] [phone] December, Wound of left lower extremit y, subsequent encounter S81.802D [facility] [address] [id number] [address] [place] [phone] Nov, [facility] [address] [id number] [address] [place] [phone] Nov, Blister of left lower extrem ity without infection, initial encounter S80.822A and Morbid obesity E66.01 [facility] [address] [id number] [address] [place] [phone] Nov, [facility] [address] [id number] [address] [place] [phone] Nov, [facility] [address] [id number] [address] [place] [phone] Nov, [facility] [address] [id number] [address] [place] [phone] Nov, [facility] [address] [id number] [address] [place] [phone] Nov, [facility] [address] [id number] [address] [place] [phone] Nov, [facility] [address] [id number] [address] [place] [phone] Oct, [facility] [address] [id number] [address] [place] [phone] Oct, Depression, major, in remiss ion F32.5 [facility] [address] [id number] [address] [place] [phone] Oct, [facility] [address] [id number] [address] [place] [phone] Oct, [facility] [address] [id number] [address] [place] [phone] Oct, [facility] [address] [facility] [id number] [address] [place] [phone] Oct, Morbid obesity E66.01 and Pr essure injury of left buttock, stage [address] [facility] [address] [id number] [address] [place] [phone] Oct, [facility] [address] [id number] [address] [place] [phone] Oct, [facility] [address] [id number] [address] [place] [phone] Oct, [facility] [address] [facility] [id number] [address] [place] [phone] 06 Oct, 2018 Pressure injury of other sit e, stage 2 L89.892 and Morbid obesity E66.01 [facility] [id number] [place] [phone] 25 Sep, 2018 Cellulitis of other specifie d site L03.818 and BMI 40.0-44.9, adult Z68.41 [place] [address] [address] 13 Sep, 2018 Scab R23.4 and BMI 40.0-44.9 , adult Z68.41 [place] [address] [address] Jun, Major depression in remissio n F32.5 [place] [address] [address] Apr, [place] [address] [phone] Apr, Encounter for breast cancer screening other than mammogram Z12.39 ; Encounter for immunization Z23 and Colon cancer screening Z12.11 [place] [address] [phone] Mar, Major depression in partial remission F32.4 and BMI 40.0-44.9, adult Z68.41 [place] [address] [place] [id number] [address] [place] [id number] Mar, [place] [address] [phone] Mar, Acquired hypothyroidism E03. 9 [place] [address] [phone] Mar, Pain in left knee M25.562 ; Other chronic pain G89.29 and Gastroesophageal reflux disease without esophagitis K21.9 [place] [address] [place] [id number] [address] [place] [phone] Jan, [place] [address] [phone] Jan, Acquired hypothyroidism E03. 9 [place] [address] [facility] [id number] [address] [place] [phone] Jan, [place] [address] [facility] [place] [id number] [address] [place] [phone] Jan, Acquired hypothyroidism E03. 9 [place] [address] [facility] [facility] [id number] [address] [place] [phone] December, Major depressive disorder in full remission, unspecified whether recurrent F32.5 [facility] [address] [facility] [place] [id number] [address] [place] [phone] Nov, Acquired hypothyroidism E03. 9 [place] [address] [facility] [place] [id number] [address] [place] [phone] Nov, Pure hypercholesterolemia E7 8.0 ; Peripheral edema R60.9 and Acquired hypothyroidism E03.9 [place] [address] [facility] [place] [id number] [address] [place] [phone] Oct, Mild acid reflux K21.9 [place] [address] [facility] [place] [id number] [address] [place] [phone] Sep, Major depressive disorder, s glenny episode, in partial remission F32.4 and Long-term use of high-risk medication Z79.899 [place] [address] [place] [id number] [address] [place] [phone] Aug, Encounter for immunization Z 23 [place] [address] [place] [id number] [address] [place] [phone] Jul, [place] [address] [facility] [place] [id number] [address] [place] [phone] Jun, Medicare annual wellness vis it, initial Z00.00 ; BMI 40.0-44.9, adult Z68.41 and Encounter for immunization Z23 [facility] [address] [facility] [place] [id number] [address] [place] [phone] May, [place] [address] [facility] [place] [id number] [address] [place] [phone] May, Encounter for immunization Z 23 [facility] [address] [id number] [address] [place] [id number] 10 May, 2017 Major depression in partial remission F32.4 [facility] [address] [facility] [place] [id number] [address] [place] [phone] Apr, Hearing loss H91.90 ; Encoun ter for immunization Z23 and Encounter for screening mammogram for breast cancer Z12.31 [facility] [address] [id number] [address] [place] [phone] Mar, Acquired hypothyroidism E03. 9 [facility] [address] [facility] [place] [id number] [address] [place] [phone] Jan, Acquired hypothyroidism E03. 9 [facility] [address] [facility] [place] [id number] [address] [place] [phone] Jan, Acute midline low back pain without sciatica M54.5 [place] [address] [facility] [place] [id number] [address] [place] [phone] Jan, Peripheral edema R60.9 [facility] [address] [facility] [place] [id number] [address] [place] [phone] Jan, Major depression in partial remission F32.4 [facility] [address] [facility] [place] [id number] [address] [place] [phone] Jan, Localized edema R60.0 [facility] [address] [facility] [place] [id number] [address] [place] [phone] Nov, Pure hypercholesterolemia E7 8.0 [facility] [address] [facility] [place] [id number] [address] [place] [phone] Nov, Pure hypercholesterolemia E7 8.0 [facility] [address] [facility] [place] [id number] [address] [place] [phone] Nov, Peripheral edema R60.9 [facility] [address] [facility] [place] [id number] [address] [place] [phone] Oct, Major depression in partial remission F32.4 [place] [id number] [id number] [address] [place] [phone] Aug, [facility] [address] [id number] [address] [place] [phone] Aug, Elevated blood pressure read ing R03.0 [facility] [address] [id number] [address] [place] [phone] Aug, [facility] [address] [facility] [place] [id number] [address] [place] [phone] Jun, Major depression in partial remission F32.4 [facility] [address] [id number] [address] [place] [phone] Apr, Major depressive disorder, r ecurrent episode, mild F33.0 [place] [address] [facility] [place] [id number] [address] [place] [phone] Mar, Encounter for well woman exa m with routine gynecological exam Z01.419 and Breast cancer screening Z12.39 [facility] [address] [id number] [address] [place] [phone] Jan, Hypothyroidism, unspecified type E03.9 [place] [address] [id number] [address] [place] [phone] Jan, Major depressive disorder, r ecurrent episode, mild F33.0 [place] [id number] [id number] [address] [place] [phone] 30 Jan, 2016 Abscess L02.91 [place] [id number] [id number] [address] [place] [phone] Jan, Furuncle L02.92 [place] [address] [facility] [place] [id number] [address] [place] [phone] 16 Jan, 2016 Major depression in partial remission F32.4 [facility] [address] [id number] [address] [place] [phone] 13 Jan, 2016 Major depressive disorder, r ecurrent episode, mild F33.0 [facility] [address] [facility] [id number] [address] [place] [phone] December, Acute bacterial conjunctivit is of left eye H10.022 [place] [address] [place] [id number] [address] [place] [phone] December, Major depressive disorder, r ecurrent episode, mild F33.0 [place] [address] [place] [phone] Nov, [place] [address] [phone] Nov, Major depressive disorder, r ecurrent episode, mild F33.0 [place] [address] [address] Nov, Hearing loss H91.90 [place] [address] [place] [id number] [address] [place] [address] Oct, Major depression in partial remission F32.4 [place] [address] [place] [id number] [address] [place] [phone] Oct, Pneumonia J18.9 [facility] [address] [address] Oct, Influenza A J10.1 ; Fever, u nspecified R50.9 ; Conjunctivitis H10.9 and Cough R05 [place] [address] [place] [phone] Oct, Major depressive disorder, r ecurrent episode, severe, 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 [place] [address] [place] [phone] Aug, [place] [address] [place] [phone] Aug, Acquired hypothyroidism E03. 9 and Pure hypercholesterolemia E78.0 [place] [address] [place] [id number] [address] [place] [phone] Aug, Major depressive disorder, r ecurrent episode, severe, 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 [facility] [address] [facility] [id number] [address] [place] [phone] Jul, [facility] [address] [facility] [place] [id number] [address] [place] [phone] Jul, Major depressive disorder, r ecurrent episode, severe, 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 [facility] [address] [facility] [place] [id number] [address] [place] [phone] Jun, Major depressive disorder, r ecurrent episode, severe, 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 [facility] [address] [facility] [place] [id number] [address] [place] [phone] May, [facility] [address] [facility] [place] [id number] [address] [place] [phone] May, Major depressive disorder, r ecurrent episode, severe, 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 [facility] [address] [facility] [place] [id number] [address] [place] [phone] May, Major depressive disorder, r ecurrent episode, severe, 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 [facility] [address] [facility] [place] [id number] [address] [place] [phone] Apr, [facility] [address] [place] [id number] [address] [place] [phone] Apr, Depressive disorder, not els ewhere classified 311 and Unspecified psychosis 298.9 [facility] [address] [facility] [place] [id number] [address] [place] [phone] Apr, Depression 311 and Hard of h earing 389.9 [facility] [address] [facility] [id number] [address] [place] [phone] 10 Apr, 2015 Schizoaffective disorder [address] [facility] [address] [facility] [place] [id number] [address] [place] [phone] 08 Apr, 2015 Major depressive disorder, r ecurrent episode, severe, specified as with psychotic behavior 296.34 [facility] [address] [id number] [address] [place] [phone] Apr, Psychosis 298.9 [address] Dep[address] on 311 [facility] [address] [id number] [address] [place] [id number] Apr, Depressive disorder, not els ewhere classified 311 and Unspecified psychosis 298.9 [facility] [address] [facility] [id number] [address] [place] [phone] Mar, Screening for cervical cance r V76.2 ; Well woman exam with routine gynecological exam V72.31 ; Colon cancer screening V76.51 ; Breast cancer screening V76.10 ; Irritable bowel syndrome 564.[address] [facility] [address] [facility] [place] [id number] [address] [place] [phone] Mar, Psychosis 298.9 [facility] [address] [facility] [id number] [address] [place] [phone] Mar, Unspecified psychosis 298.9 [facility] [address] [facility] [id number] [address] [place] [phone] Nov, [facility] [address] [facility] [id number] [address] [place] [phone] Nov, [facility] [address] [facility] [id number] [address] [place] [phone] Oct, [facility] [address] [facility] [id number] [address] [place] [phone] Oct, [facility] [address] [facility] [id number] [address] [place] [phone] Jul, [facility] [address] [facility] [id number] [address] [place] [phone] Jul, [facility] [address] [facility] [id number] [address] [place] [phone] May, [facility] [address] [facility] [id number] [address] [place] [phone] Apr, [facility] [place] [facility] [address] [id number] [facility] [place] [address] Apr, [facility] [address] [id number] [facility] [place] [address] Apr, [facility] [address] [id number] [address] [place] [address] Apr, [facility] [address] [id number] [address] [place] [address], [place] [address] Apr, [facility] [address] [id number] [address] [place] [address] Mar, [facility] [address] [id number] [address] [place] [address], [place] [address] Mar, [facility] [address] [id number] [address] [place] [address], [place] [address] Mar, [facility] [address] [id number] [address] [place] [address], [place] [address] Mar, [facility] [address] [id number] [address] [place] [address], [place] [address] Mar, [facility] [address] [id number] [address] [place] [address], [place] [address] Mar, [facility] [address] [id number] [address] [place] [address], [place] [address] Mar, [facility] [address] [id number] [address] [place] [address], [place] [address] Mar, [facility] [address] [id number] [address] [place] [address], [place] [address] Mar, [facility] [address] [id number] [address] [place] [address], [place] [address] Mar, [facility] [address] [id number] [address] [place] [address], [place] [address] Jan, [facility] [address] [id number] [address] [place] [address], [place] [address] Jan, [facility] [address] [id number] [address] [place] [address], [place] [address] December, [facility] [facility] [address] [id number] [address] [place] [address], [place] [address] December, [facility] [address] [id number] [address] [place] [address], [place] [address] Nov, [facility] [address] [id number] [address] [place] [address], [place] [address] Nov, [facility] [address] [id number] [address] [place] [address], [place] [address] Sep, [facility] [address] [id number] [address] [place] [address], [place] [address] Sep, [facility] [address] [id number] [address] [place] [address], [place] [address] Sep, [facility] [address] [id number] [address] [place] [address], [place] [address] Sep, [facility] [address] [id number] [address] [place] [address], [place] [address] Jun, [facility] [address] [id number] [address] [place] [address], [place] [address] Jun, [facility] [address] [id number] [address] [place] [address], [place] [address] Jun, [facility] [address] [id number] [address] [place] [address], [place] [address] Jun, [facility] [address] [id number] [address] [place] [address], [place] [address] May, [facility] [address] [id number] [address] [place] [address], [place] [address] May, [facility] [address] [id number] [address] [place] [address], [place] [address] Apr, [facility] [address] [id number] [facility] [place] [address] Mar, [facility] [address] [id number] [address] [place] [address], [place] [address] Mar, [facility] [address] [id number] [address] [place] [address], [place] [address] Mar, [facility] [address] [id number] [address] [place] [address], [place] [address] Mar, [facility] [address] [id number] [address] [place] [address], [place] [address] Mar, [facility] [address] [id number] [address] [place] [address], [place] [address] Jan, [facility] [address] [id number] [address] [place] [address], [place] [address] Jan, [facility] [address] [id number] [address] [place] [address], [place] [address] Jan, [facility] [address] [id number] [address] [place] [address], [place] [address] December, [facility] [address] [id number] [address] [place] [address], [place] [address] Oct, [facility] [address] [id number] [address] [place] [address], [place] [address] Oct, [facility] [address] [id number] [address] [place] [address], [place] [address] Oct, [facility] [address] [id number] [address] [place] [address], [place] [address] Oct, [facility] [address] [id number] [address] [place] [address], [place] [address] Aug, [facility] [address] [id number] [address] [place] [address], [place] [address] Jun, [facility] [address] [id number] [address] [place] [address], [place] [address] Jun, [facility] [address] [id number] [address] [place] [address], [place] [address] Jun, [facility] [address] [id number] [address] [place] [address], [place] [address] Jun, [facility] [address] [id number] [address] [place] [address], [place] [address] May, [facility] [address] [id number] [address] [place] [address], [place] [address] Apr, [facility] [address] [id number] [address] [place] [address], [place] [address] Mar, [facility] [address] [id number] [address] [place] [address], [place] [address] Jan, [facility] [address] [id number] [address] [place] [address], [place] [address] Jan, [facility] [address] [id number] [address] [place] [address], [place] [address] December, [facility] [address] [id number] [address] [place] [address], [place] [address] December, [facility] [address] [id number] [address] [place] [address], [place] [address] December, [facility] [address] [id number] [address] [place] [address], [place] [address] December, [facility] [address] [id number] [address] [place] [address], [place] [address] Nov, [facility] [address] [id number] [address] [place] [address], [place] [address] Oct, [facility] [address] [id number] [address] [place] [address], [place] [address] Sep, [facility] [address] [id number] [address] [place] [address], [place] [address] Sep, [facility] [address] [id number] [address] [place] [address] Sep, [facility] [address] [id number] [address] [place] [address] Sep, [facility] [address] [id number] [address] [place] [address] Aug, [facility] [address] [facility] [place] [id number] [address] [place] [phone] Jun, [facility] [address] [facility] [place] [id number] [address] [place] [address] May, [facility] [address] [facility] [place] [id number] [address] [place] [phone] Mar, [facility] [address] [facility] [place] [id number] [address] [place] [id number] Jun, [facility] [address] [facility] [place] [id number] [address] [place] [id number] May, [facility] [address] [facility] [place] [id number] [address] [place] [id number] May, IMMUNIZATIONS No Known Immunizations SOCIAL HISTORY [...]
--- OUTSIDE RECORDS SUMMARY | 2020-02-21 11:43 | XMS REPORT ---
Author Author Tarik POTTS Organization 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 Name Role Phone ROMA POTTS Unavailable PROBLEMS Type Condition ICD9-CM Code MIY94-CO Code Onset Dates Condition S tatus SNOMED Code Problem Osteopenia after menopause M81.0 Act mode 444083970 Problem Acquired hypothyroidism E03.9 Active 853915489 Problem Hearing loss of both ears H91.93 Acti ve 35155113 Problem Depression, major, 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 Active 01486540 Problem Pressure injury of left buttock, stage 2 L89.322 Active 014567465 Problem Hyperlipidemia, unspecified hyperlipidemia type E7 8.5 Active 30580457 Problem Pressure ulcer of left buttock, stage 3 L89.323 Active 523920739 Problem Gastroesophageal reflux disease without esophagitis K21.9 Active 461349989 Problem 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 Active 49479009 Problem Pure hypercholesterolemia E78.0 Acti ve 815126468 Problem Post menopausal syndrome N95.1 Activ e 077091927 Problem Decubitus ulcer of left leg, stage 2 L89.892 Active 797285052 Problem Falling R29.6 Active 177218832 Problem Pharyngoesophageal dysphagia R13.14 A ctive 34006206 ALLERGIES No Information ENCOUNTERS Encounter Location Date Diagnosis [place] [address] [place] [id number] [address] [place] [phone] December, [place] [id number] [place] [phone] Nov, [place] [address] [place] [id number] [address] [place] [phone] Nov, Exercise counseling Z71.82 [place] [address] [address] 31 Oct, 2019 Exercise counseling Z71.82 [place] [address] [place] [id number] 24 Oct, 2019 Exercise counseling Z71.82 [facility] [address] [address] 17 Oct, 2019 Exercise counseling Z71.82 [place] [address] [address] 12 Oct, 2019 Exercise counseling Z71.82 [place] [address] [address] 05 Oct, 2019 Exercise counseling Z71.82 [place] [address] [address] 26 Sep, 2019 Falling R29.6 ; Pharyngoesop hageal dysphagia R13.14 and Pressure ulcer of left buttock, stage 3 L89.323 [place] [address] [address] 20 Sep, 2019 Exercise counseling Z71.82 [place] [address] [address] 18 Sep, 2019 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 and Falling R29.6 [place] [address] [address] 13 Sep, 2019 [place] [address] [address] 12 Sep, 2019 Falling R29.6 [place] [address] [address] 06 Sep, 2019 [place] [address] [address] 05 Sep, 2019 Acquired hypothyroidism E03. 9 and Falling R29.6 [place] [address] [place] [id number] [place] [phone] Aug, Depression, major, in [facility] F32.5 [facility] [address] [id number] [address] [place] [phone] May, Depression, major, in [facility] F32.5 [facility] [address] [id number] [address] [place] [phone] May, Wound of left lower extremit y, subsequent encounter S81.802D [facility] [address] [id number] [address] [place] [phone] May, Wound of left lower extremit y, subsequent encounter S81.802D [facility] [address] [facility] [id number] [address] [place] [phone] May, Wound of left lower extremit y, subsequent encounter S81.802D [facility] [address] [facility] [id number] [address] [place] [phone] May, Wound of left lower extremit y, subsequent encounter S81.802D [facility] [address] [id number] [address] [place] [phone] May, [facility] [address] [facility] [id number] [address] [place] [phone] May, Peripheral edema R60.9 ; Dec ubitus ulcer of left leg, stage 2 L89.892 ; Dry skin dermatitis L85.3 ; Encounter for immunization Z23 and Breast cancer screening Z12.39 [facility] [address] [id number] [address] [place] [phone] Mar, [facility] [address] [facility] [id number] [address] [place] [phone] Jan, Depression, major, in [facility] F32.5 and Morbid obesity E66.01 [facility] [address] [facility] [id number] [address] [place] [phone] Jan, Encounter for Medicare annua l wellness exam Z00.00 ; Hyperlipidemia, unspecified hyperlipidemia type E78.5 ; Depression, major, 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 ; Gastroesophageal reflux disease without esophagitis K21.9 ; Acquired hypothyroidism E03.9 ; Hearing loss of both ears H91.93 ; Post menopausal syndrome N95.1 and Morbid obesity E66.01 [facility] [address] [id number] [address] [place] [phone] Jan, Hyperlipidemia, unspecified hyperlipidemia type E78.5 and Morbid obesity E66.01 [facility] [address] [id number] [address] [place] [phone] Jan, [facility] [address] [id number] [address] [place] [phone] December, [facility] [address] [id number] [address] [place] [phone] December, [facility] [address] [id number] [address] [place] [phone] December, [facility] [address] [id number] [address] [place] [phone] December, Wound of left lower extremit y, subsequent encounter S81.802D [facility] [address] [id number] [address] [place] [phone] Nov, [facility] [address] [id number] [address] [place] [phone] Nov, Blister of left lower extrem ity without infection, initial encounter S80.822A and Morbid obesity E66.01 [facility] [address] [id number] [address] [place] [phone] Nov, [facility] [address] [id number] [address] [place] [phone] Nov, [facility] [address] [id number] [address] [place] [phone] Nov, [facility] [address] [id number] [address] [place] [phone] Nov, [facility] [address] [id number] [address] [place] [phone] Nov, [facility] [address] [id number] [address] [place] [phone] Nov, [facility] [address] [id number] [address] [place] [phone] Oct, [facility] [address] [id number] [address] [place] [phone] Oct, Depression, major, in remiss ion F32.5 [facility] [address] [id number] [address] [place] [phone] Oct, [facility] [address] [id number] [address] [place] [phone] Oct, [facility] [address] [facility] [id number] [address] [place] [phone] Oct, [facility] [address] [id number] [address] [place] [phone] Oct, Morbid obesity E66.01 and Pr essure injury of left buttock, stage 2 L89.322 [facility] [address] [id number] [address] [place] [phone] Oct, [facility] [address] [id number] [address] [place] [phone] Oct, [facility] [address] [facility] [id number] [address] [place] [phone] Oct, [facility] [address] [id number] [address] [place] [phone] Oct, Pressure injury of other sit e, stage 2 L89.892 and Morbid obesity E66.01 [facility] [address] [id number] [address] [place] [id number] Sep, Cellulitis of other specifie d site L03.818 and BMI 40.0-44.9, adult Z68.41 [facility] [address] [id number] [address] [place] [phone] 13 Sep, 2018 Scab R23.4 and BMI 40.0-44.9 , adult Z68.41 [facility] [address] [id number] [address] [place] [phone] Jun, Major depression in remissio n F32.5 [facility] [address] [id number] [address] [place] [id number] 27 Apr, 2018 [facility] [address] [id number] [address] [place] [id number] 24 Apr, 2018 Encounter for breast cancer screening other than mammogram Z12.39 ; Encounter for immunization Z23 and Colon cancer screening Z12.11 [facility] [address] [facility] [id number] [address] [place] [id number] 30 Mar, 2018 Major depression in partial remission F32.4 and BMI 40.0-44.9, adult Z68.41 [facility] [address] [id number] [address] [place] [phone] Mar, [facility] [address] [id number] [address] [place] [id number] Mar, Acquired hypothyroidism E03. 9 [facility] [address] [id number] [address] [place] [phone] Mar, Pain in left knee M25.562 ; Other chronic pain G89.29 and Gastroesophageal reflux disease without esophagitis K21.9 [facility] [address] [id number] [address] [place] [phone] Jan, [facility] [address] [id number] [address] [place] [phone] Jan, Acquired hypothyroidism E03. 9 [facility] [address] [id number] [address] [place] [phone] Jan, [facility] [address] [facility] [id number] [address] [place] [phone] Jan, Acquired hypothyroidism E03. 9 [facility] [address] [id number] [address] [place] [phone] December, Major depressive disorder in full remission, unspecified whether recurrent F32.5 [facility] [address] [facility] [id number] [address] [place] [phone] Nov, Acquired hypothyroidism E03. 9 [place] [address] [facility] [id number] [address] [place] [phone] Nov, Pure hypercholesterolemia E7 8.0 ; Peripheral edema R60.9 and Acquired hypothyroidism E03.9 [place] [address] [facility] [id number] [address] [place] [phone] Oct, Mild acid reflux K21.9 [place] [address] [facility] [id number] [address] [place] [phone] Sep, Major depressive disorder, s glenny episode, in partial remission F32.4 and Long-term use of high-risk medication Z79.899 [place] [address] [facility] [id number] [address] [place] [phone] Aug, Encounter for immunization Z 23 [place] [id number] [facility] [id number] [address] [place] [id number] Jul, [place] [address] [facility] [id number] [address] [place] [phone] Jun, Medicare annual wellness vis it, initial Z00.00 ; BMI 40.0-44.9, adult Z68.41 and Encounter for immunization Z23 [place] [id number] [facility] [id number] [address] [place] [phone] May, [place] [address] [facility] [id number] [address] [place] [phone] May, Encounter for immunization Z 23 [facility] [address] [facility] [id number] [address] [place] [phone] May, Major depression in partial remission F32.4 [facility] [address] [facility] [id number] [address] [place] [phone] 11 Apr, 2017 Hearing loss H91.90 ; Encoun ter for immunization Z23 and Encounter for screening mammogram for breast cancer Z12.31 [facility] [address] [id number] [address] [place] [phone] Mar, Acquired hypothyroidism E03. 9 [facility] [address] [id number] [address] [place] [phone] Jan, Acquired hypothyroidism E03. 9 [facility] [address] [facility] [id number] [address] [place] [phone] Jan, Acute midline low back pain without sciatica M54.5 [facility] [address] [facility] [id number] [address] [place] [phone] Jan, Peripheral edema R60.9 [facility] [address] [facility] [id number] [address] [place] [phone] Jan, Major depression in partial remission F32.4 [facility] [address] [id number] [address] [place] [phone] Jan, Localized edema R60.0 [facility] [address] [facility] [id number] [address] [place] [phone] Nov, Pure hypercholesterolemia E7 8.0 [facility] [address] [facility] [id number] [address] [place] [phone] Nov, Pure hypercholesterolemia E7 8.0 [facility] [address] [id number] [address] [place] [phone] Nov, Peripheral edema R60.9 [facility] [address] [facility] [id number] [address] [place] [phone] Oct, Major depression in partial remission F32.4 [facility] [address] [facility] [id number] [address] [place] [phone] Aug, [facility] [address] [id number] [address] [place] [phone] Aug, Elevated blood pressure read ing R03.0 [facility] [address] [facility] [id number] [address] [place] [phone] Aug, [place] [address] [facility] [id number] [address] [place] [phone] Jun, Major depression in partial remission F32.4 [place] [address] [facility] [id number] [address] [place] [phone] Apr, Major depressive disorder, r ecurrent episode, mild F33.0 [place] [address] [facility] [id number] [address] [place] [phone] Mar, Encounter for well woman reta rios with routine gynecological exam Z01.419 and Breast cancer screening Z12.39 [place] [address] [facility] [id number] [address] [place] [phone] Jan, Hypothyroidism, unspecified type E03.9 [facility] [address] [facility] [id number] [address] [place] [phone] Jan, Major depressive disorder, r ecurrent episode, mild F33.0 [place] [address] [facility] [id number] [address] [place] [phone] Jan, Abscess L02.91 [place] [address] [facility] [id number] [address] [place] [phone] Jan, Furuncle L02.92 [place] [address] [facility] [id number] [address] [place] [id number] 16 Jan, 2016 Major depression in partial remission F32.4 [place] [address] [facility] [id number] [address] [place] [phone] Jan, Major depressive disorder, r ecurrent episode, mild F33.0 [facility] [address] [facility] [id number] [address] [place] [phone] December, Acute bacterial conjunctivit is of left eye H10.022 [place] [address] [place] [id number] [address] [place] [phone] December, Major depressive disorder, r ecurrent episode, mild F33.0 [facility] [address] [address] Nov, [facility] [address] [address] Nov, Major depressive disorder, r ecurrent episode, mild F33.0 [place] [address] [address] Nov, Hearing loss H91.90 [place] [address] [address] Oct, Major depression in partial remission F32.4 [place] [address] [address] Oct, Pneumonia J18.9 [facility] [address] [address] Oct, Influenza A J10.1 ; Fever, u nspecified R50.9 ; Conjunctivitis H10.9 and Cough R05 [place] [address] [place] [id number] [address] [place] [phone] Oct, Major depressive disorder, r ecurrent episode, severe, 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 [place] [address] [place] [id number] [address] [place] [address] Aug, [place] [address] [address] Aug, Acquired hypothyroidism E03. 9 and Pure hypercholesterolemia E78.0 [place] [address] [address] Aug, Major depressive disorder, r ecurrent episode, severe, 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 [place] [address] [address] Jul, [facility] [address] [facility] [id number] [address] [place] [phone] Jul, Major depressive disorder, r ecurrent episode, severe, 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 [facility] [address] [facility] [id number] [address] [place] [phone] Jun, Major depressive disorder, r ecurrent episode, severe, 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 [facility] [address] [facility] [id number] [address] [place] [phone] May, [facility] [address] [facility] [id number] [address] [place] [phone] May, Major depressive disorder, r ecurrent episode, severe, 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 [facility] [address] [facility] [id number] [address] [place] [phone] May, Major depressive disorder, r ecurrent episode, severe, 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 [facility] [address] [place] [id number] [address] [place] [phone] Apr, [facility] [address] [place] [id number] [address] [place] [phone] Apr, Depressive disorder, not els ewhere classified 311 and Unspecified psychosis 298.9 [place] [address] [place] [id number] [address] [place] [phone] Apr, Depression 311 and Hard of h earing 389.9 [facility] [address] [facility] [id number] [address] [place] [phone] Apr, Schizoaffective disorder 295 .70 [place] [address] [facility] [id number] [address] [place] [phone] 08 Apr, 2015 Major depressive disorder, r ecurrent episode, severe, specified as with psychotic behavior 296.34 [facility] [address] [facility] [id number] [address] [place] [phone] Apr, Psychosis 298.9 and Depressi on 311 [facility] [address] [place] [id number] [address] [place] [phone] Apr, Depressive disorder, not els ewhere classified 311 and Unspecified psychosis 298.9 [facility] [address] [id number] [address] [place] [phone] Mar, Screening for cervical cance r V76.2 ; Well woman exam with routine gynecological exam V72.31 ; Colon cancer screening V76.51 ; Breast cancer screening V76.10 ; Irritable bowel syndrome 564.1 and Psychosis 298.9 [facility] [address] [id number] [address] [place] [phone] Mar, Psychosis 298.9 [facility] [address] [id number] [address] [place] [id number] Mar, Unspecified psychosis 298.9 [facility] [address] [id number] [address] [place] [phone] Nov, [facility] [address] [id number] [address] [place] [phone] Nov, [facility] [address] [id number] [address] [place] [phone] Oct, [facility] [address] [id number] [address] [place] [phone] Oct, [facility] [address] [id number] [address] [place] [id number] Jul, [facility] [address] [id number] [address] [place] [id number] Jul, [facility] [address] [id number] [address] [place] [phone] May, [facility] [address] [id number] [address] [place] [phone] Apr, [facility] [address] [id number] [address] [place] [phone] Apr, [facility] [address] [id number] [address] [place] [id number] 05 Apr, 2014 [facility] [address] [id number] [address] [place] [id number] 05 Apr, 2014 [facility] [address] [id number] [address] [place] [id number] Apr, [facility] [address] [id number] [address] [place] [address], [place] [address] Mar, [facility] [address] [id number] [facility] [address] Mar, [facility] [address] [id number] [address] [place] [address], [place] [address] Mar, [facility] [address] [id number] [address] [place] [address], [place] [address] Mar, [facility] [address] [id number] [address] [place] [address], [place] [address] Mar, [facility] [address] [id number] [address] [place] [address], [place] [address] Mar, [facility] [address] [id number] [address] [place] [address], [place] [address] Mar, [facility] [address] [id number] [address] [place] [address], [place] [address] Mar, [facility] [address] [id number] [address] [place] [address], [place] [address] Mar, [facility] [address] [id number] [address] [place] [address], [place] [address] Mar, [facility] [address] [id number] [address] [place] [address], [place] [address] Jan, [facility] [address] [id number] [address] [place] [address], [place] [address] Jan, [facility] [address] [id number] [address] [place] [address], [place] [address] December, [facility] [address] [id number] [address] [place] [address], [place] [address] December, [facility] [address] [id number] [address] [place] [address], [place] [address] Nov, [facility] [address] [id number] [address] [place] [address], [place] [address] Nov, [facility] [address] [id number] [address] [place] [address], [place] [address] Sep, [facility] [address] [id number] [address] [place] [address], [place] [address] Sep, [facility] [address] [id number] [address] [place] [address], [place] [address] Sep, [facility] [address] [id number] [address] [place] [address], [place] [address] Sep, [facility] [address] [id number] [address] [place] [address], [place] [address] Jun, [facility] [address] [id number] [address] [place] [address], [place] [address] Jun, [facility] [address] [id number] [address] [place] [address], [place] [address] Jun, [facility] [address] [id number] [address] [place] [address], [place] [address] Jun, [facility] [address] [id number] [address] [place] [address], [place] [address] May, [facility] [address] [id number] [address] [place] [address], [place] [address] May, [facility] [address] [id number] [address] [place] [address], [place] [address] Apr, [facility] [address] [id number] [address] [place] [address], [place] [address] Mar, [facility] [address] [id number] [address] [place] [address], [place] [address] Mar, [facility] [address] [id number] [address] [place] [address], [place] [address] Mar, [facility] [address] [id number] [address] [place] [address], [place] [address] Mar, [facility] [address] [id number] [address] [place] [address], [place] [address] Mar, [facility] [address] [id number] [address] [place] [address], [place] [address] Jan, [facility] [address] [id number] [address] [place] [address], [place] [address] Jan, [facility] [address] [id number] [address] [place] [address], [place] [address] Jan, [facility] [address] [id number] [address] [place] [address], [place] [address] December, [facility] [address] [id number] [address] [place] [address], [place] [address] Oct, [facility] [address] [id number] [address] [place] [address], [place] [address] Oct, [facility] [address] [id number] [address] [place] [address], [place] [address] Oct, [facility] [address] [id number] [address] [place] [address], [place] [address] Oct, [facility] [address] [id number] [address] [place] [address], [place] [address] Aug, [facility] [address] [id number] [address] [place] [address], [place] [address] 16 Jun, 2012 [facility] [address] [id number] [address] [place] [address], [place] [address] 16 Jun, 2012 [facility] [address] [id number] [address] [place] [address], [place] [address] 14 Jun, 2012 [facility] [address] [id number] [address] [place] [address], [place] [address] Jun, [facility] [address] [id number] [address] [place] [address], [place] [address] May, [facility] [address] [id number] [address] [place] [address], [place] [address] Apr, [facility] [address] [id number] [address] [place] [address], [place] [address] Mar, [facility] [address] [id number] [address] [place] [address], [place] [address] Jan, [facility] [address] [id number] [address] [place] [address], [place] [address] Jan, [facility] [address] [id number] [address] [place] [address], [place] [address] December, [facility] [address] [id number] [address] [place] [address], [place] [address] December, [facility] [address] [id number] [address] [place] [address], [place] [address] December, [facility] [address] [id number] [address] [place] [address], [place] [address] December, [facility] [address] [id number] [address] [place] [address], [place] [address] Nov, [facility] [address] [id number] [address] [place] [address], [place] [address] Oct, [facility] [address] [id number] [address] [place] [address], [place] [address] Sep, [facility] [address] [id number] [address] [place] [address], [place] [address] Sep, [facility] [address] [id number] [address] [place] [address], [place] [address] Sep, [facility] [address] [id number] [address] [place] [address], [place] [address] Sep, [facility] [address] [id number] [address] [place] [address] Aug, [facility] [address] [id number] [address] [place] [address] Jun, [facility] [address] [id number] [address] [place] [address] May, [facility] [address] [id number] [address] [place] [address] Mar, [facility] [address] [id number] [address] [place] [address] Jun, [facility] [address] [id number] [address] [place] [address] May, [facility] [address] [facility] [id number] [address] [place] [id number] May, IMMUNIZATIONS No Known Immunizations SOCIAL HISTORY Never Assessed REASON FOR VISIT PLAN OF CARE VITAL SIGNS Height 65 in 2014-03-30 Weight 259 lbs 2014-03-30 Temperature 98.8 degrees Fahrenheit 2014-03-30 Heart Rate 74 bpm 2014-03-30 Respiratory Rate 18 2014-03-30 Blood pressure systolic 130 mmHg 2014-03-30 Blood pressure diastolic 76 mmHg 2014-03-30 MEDICATIONS Unknown Medications RESULTS No Results PROCEDURES Procedure Date Ordered Result Body Site SCR PAP SMER;NEW PT OBTAIN PREP&CONVY-LAB Mar 30, 2014 CYTOPATH C/V AUTO FLUID REDO Mar 30, 2014 TEST FOR BLOOD, FECES Mar 30, 2014 INSTRUCTIONS MEDICATIONS ADMINISTERED No Known Medications MEDICAL (GENERAL) HISTORY Type Description Date Medical History depression Medical History hypothryroidism Medical History hyperlipidemia Medical History trauma: Stroke - with L side faci al drooping Surgical History hysterectomy Surgical History cholecystectomy Surgical History gall bladder removal Hospitalization History surgeries Hospitalization History stroke
--- OUTSIDE RECORDS SUMMARY | 2020-02-21 11:44 | XMS REPORT ---
Author Author Tarik POTTS Organization [facility] Address [address] [place] [address] Care Team Providers Care Home Aide Name Role Phone ROMA POTTS Unavailable PROBLEMS Type Condition ICD9-CM Code CBI96-FP Code Onset Dates Condition S tatus SNOMED Code Problem Osteopenia after menopause M81.0 Act mode 029773487 Problem Acquired hypothyroidism E03.9 Active 127083698 Problem Hearing loss of both ears H91.93 Acti ve 51276494 Problem Depression, major, 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 Active 05419926 Problem Pressure injury of left buttock, stage 2 L89.322 Active 056635918 Problem Hyperlipidemia, unspecified hyperlipidemia type E7 8.5 Active 86408990 Problem Pressure ulcer of left buttock, stage 3 L89.323 Active 172144422 Problem Gastroesophageal reflux disease without esophagitis K21.9 Active 852515248 Problem 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 Active 30187816 Problem Pure hypercholesterolemia E78.0 Acti ve 427931845 Problem Post menopausal syndrome N95.1 Activ e 640943091 Problem Decubitus ulcer of left leg, stage 2 L89.892 Active 294983842 Problem Falling R29.6 Active 482241616 Problem Pharyngoesophageal dysphagia R13.14 A ctive 54271685 ALLERGIES No Information ENCOUNTERS Encounter Location Date Diagnosis [place] [address] [place] [id number] [address] [place] [address] December, [place] [id number] [place] [address] Nov, [place] [address] [place] [id number] [address] [place] [address] Nov, Exercise counseling Z71.82 [place] [address] [address] 31 Oct, 2019 Exercise counseling Z71.82 [place] [address] [place] [address] 24 Oct, 2019 Exercise counseling Z71.82 [facility] [address] [address] 17 Oct, 2019 Exercise counseling Z71.82 [place] [address] [address] 12 Oct, 2019 Exercise counseling Z71.82 [place] [address] [address] 05 Oct, 2019 Exercise counseling Z71.82 [place] [address] [address] 26 Sep, 2019 Falling R29.6 ; Pharyngoesop hageal dysphagia R13.14 and Pressure ulcer of left buttock, stage 3 L89.323 [place] [address] [address] 20 Sep, 2019 Exercise counseling Z71.82 [place] [address] [address] 18 Sep, 2019 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 and Falling R29.6 [place] [address] [address] 13 Sep, 2019 [place] [address] [address] 12 Sep, 2019 Falling R29.6 [place] [address] [address] 06 Sep, 2019 [place] [address] [address] 05 Sep, 2019 Acquired hypothyroidism E03. 9 and Falling R29.6 [place] [address] [place] [address] [place] [address] Aug, Depression, major, in [facility] F32.5 [facility] [address] [id number] [address] [place] [address] May, Depression, major, in [facility] F32.5 [facility] [address] [id number] [address] [place] [address] May, Wound of left lower extremit y, subsequent encounter S81.802D [facility] [address] [id number] [address] [place] [address] May, Wound of left lower extremit y, subsequent encounter S81.802D [facility] [address] [facility] [id number] [address] [place] [address] May, Wound of left lower extremit y, subsequent encounter S81.802D [facility] [address] [facility] [id number] [address] [place] [address] May, Wound of left lower extremit y, subsequent encounter S81.802D [facility] [address] [id number] [address] [place] [address] May, [facility] [address] [facility] [id number] [address] [place] [address] May, Peripheral edema R60.9 ; Dec ubitus ulcer of left leg, stage 2 L89.892 ; Dry skin dermatitis L85.3 ; Encounter for immunization Z23 and Breast cancer screening Z12.39 [facility] [address] [id number] [address] [place] [address] Mar, [facility] [address] [facility] [id number] [address] [place] [address] Jan, Depression, major, in [facility] F32.5 and Morbid obesity E66.01 [facility] [address] [facility] [id number] [address] [place] [address] Jan, Encounter for Medicare annua l wellness exam Z00.00 ; Hyperlipidemia, unspecified hyperlipidemia type E78.5 ; Depression, major, 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 ; Gastroesophageal reflux disease without esophagitis K21.9 ; Acquired hypothyroidism E03.9 ; Hearing loss of both ears H91.93 ; Post menopausal syndrome N95.1 and Morbid obesity E66.01 [facility] [address] [id number] [address] [place] [address] Jan, Hyperlipidemia, unspecified hyperlipidemia type E78.5 and Morbid obesity E66.01 [facility] [address] [id number] [address] [place] [address] Jan, [facility] [address] [id number] [address] [place] [address] December, [facility] [address] [id number] [address] [place] [address] December, [facility] [address] [id number] [address] [place] [address] December, [facility] [address] [id number] [address] [place] [address] December, Wound of left lower extremit y, subsequent encounter S81.802D [facility] [address] [id number] [address] [place] [address] Nov, [facility] [address] [id number] [address] [place] [address] Nov, Blister of left lower extrem ity without infection, initial encounter S80.822A and Morbid obesity E66.01 [facility] [address] [id number] [address] [place] [address] Nov, [facility] [address] [id number] [address] [place] [address] Nov, [facility] [address] [id number] [address] [place] [address] Nov, [facility] [address] [id number] [address] [place] [address] Nov, [facility] [address] [id number] [address] [place] [address] Nov, [facility] [address] [id number] [address] [place] [address] Nov, [facility] [address] [id number] [address] [place] [address] Oct, [facility] [address] [id number] [address] [place] [address] Oct, Depression, major, in remiss ion F32.5 [facility] [address] [id number] [address] [place] [address] Oct, [facility] [address] [id number] [address] [place] [address] Oct, [facility] [address] [facility] [id number] [address] [place] [address] Oct, [facility] [address] [id number] [address] [place] [address] Oct, Morbid obesity E66.01 and Pr essure injury of left buttock, stage 2 L89.322 [facility] [address] [id number] [address] [place] [address] Oct, [facility] [address] [id number] [address] [place] [address] Oct, [facility] [address] [facility] [id number] [address] [place] [address] Oct, [facility] [address] [id number] [address] [place] [address] Oct, Pressure injury of other sit e, stage 2 L89.892 and Morbid obesity E66.01 [facility] [address] [id number] [address] [place] [address] Sep, Cellulitis of other specifie d site L03.818 and BMI 40.0-44.9, adult Z68.41 [facility] [address] [id number] [address] [place] [address] 13 Sep, 2018 Scab R23.4 and BMI 40.0-44.9 , adult Z68.41 [facility] [address] [id number] [address] [place] [address] Jun, Major depression in remissio n F32.5 [facility] [address] [id number] [address] [place] [address] 27 Apr, 2018 [facility] [address] [id number] [address] [place] [address] 24 Apr, 2018 Encounter for breast cancer screening other than mammogram Z12.39 ; Encounter for immunization Z23 and Colon cancer screening Z12.11 [facility] [address] [facility] [id number] [address] [place] [address] 30 Mar, 2018 Major depression in partial remission F32.4 and BMI 40.0-44.9, adult Z68.41 [facility] [address] [id number] [address] [place] [address] Mar, [facility] [address] [id number] [address] [place] [address] Mar, Acquired hypothyroidism E03. 9 [facility] [address] [id number] [address] [place] [address] Mar, Pain in left knee M25.562 ; Other chronic pain G89.29 and Gastroesophageal reflux disease without esophagitis K21.9 [facility] [address] [id number] [address] [place] [address] Jan, [facility] [address] [id number] [address] [place] [address] Jan, Acquired hypothyroidism E03. 9 [facility] [address] [id number] [address] [place] [address] Jan, [facility] [address] [facility] [id number] [address] [place] [address] Jan, Acquired hypothyroidism E03. 9 [facility] [address] [id number] [address] [place] [address] December, Major depressive disorder in full remission, unspecified whether recurrent F32.5 [facility] [address] [facility] [id number] [address] [place] [address] Nov, Acquired hypothyroidism E03. 9 [place] [address] [facility] [id number] [address] [place] [address] Nov, Pure hypercholesterolemia E7 8.0 ; Peripheral edema R60.9 and Acquired hypothyroidism E03.9 [place] [address] [facility] [id number] [address] [place] [address] Oct, Mild acid reflux K21.9 [place] [address] [facility] [id number] [address] [place] [address] Sep, Major depressive disorder, s glenny episode, in partial remission F32.4 and Long-term use of high-risk medication Z79.899 [place] [address] [facility] [id number] [address] [place] [address] Aug, Encounter for immunization Z 23 [place] [address] [facility] [id number] [address] [place] [address] Jul, [place] [address] [facility] [id number] [address] [place] [address] Jun, Medicare annual wellness vis it, initial Z00.00 ; BMI 40.0-44.9, adult Z68.41 and Encounter for immunization Z23 [place] [address] [facility] [id number] [address] [place] [address] May, [place] [address] [facility] [id number] [address] [place] [address] May, Encounter for immunization Z 23 [facility] [address] [facility] [id number] [address] [place] [address] May, Major depression in partial remission F32.4 [facility] [address] [facility] [id number] [address] [place] [address] 11 Apr, 2017 Hearing loss H91.90 ; Encoun ter for immunization Z23 and Encounter for screening mammogram for breast cancer Z12.31 [facility] [address] [id number] [address] [place] [address] Mar, Acquired hypothyroidism E03. 9 [facility] [address] [id number] [address] [place] [address] Jan, Acquired hypothyroidism E03. 9 [facility] [address] [facility] [id number] [address] [place] [address] Jan, Acute midline low back pain without sciatica M54.5 [facility] [address] [facility] [id number] [address] [place] [address] Jan, Peripheral edema R60.9 [facility] [address] [facility] [id number] [address] [place] [address] Jan, Major depression in partial remission F32.4 [facility] [address] [id number] [address] [place] [address] Jan, Localized edema R60.0 [facility] [address] [facility] [id number] [address] [place] [address] Nov, Pure hypercholesterolemia E7 8.0 [facility] [address] [facility] [id number] [address] [place] [address] Nov, Pure hypercholesterolemia E7 8.0 [facility] [address] [id number] [address] [place] [address] Nov, Peripheral edema R60.9 [facility] [address] [facility] [id number] [address] [place] [address] Oct, Major depression in partial remission F32.4 [facility] [address] [facility] [id number] [address] [place] [address] Aug, [facility] [address] [id number] [address] [place] [address] Aug, Elevated blood pressure read ing R03.0 [facility] [address] [facility] [id number] [address] [place] [address] Aug, [place] [address] [facility] [id number] [address] [place] [address] Jun, Major depression in partial remission F32.4 [place] [address] [facility] [id number] [address] [place] [address] Apr, Major depressive disorder, r ecurrent episode, mild F33.0 [place] [address] [facility] [id number] [address] [place] [address] Mar, Encounter for well woman reta rios with routine gynecological exam Z01.419 and Breast cancer screening Z12.39 [place] [address] [facility] [id number] [address] [place] [address] Jan, Hypothyroidism, unspecified type E03.9 [facility] [address] [facility] [id number] [address] [place] [address] Jan, Major depressive disorder, r ecurrent episode, mild F33.0 [place] [address] [facility] [id number] [address] [place] [address] Jan, Abscess L02.91 [place] [address] [facility] [id number] [address] [place] [address] Jan, Furuncle L02.92 [place] [address] [facility] [id number] [address] [place] [address] 16 Jan, 2016 Major depression in partial remission F32.4 [place] [address] [facility] [id number] [address] [place] [address] Jan, Major depressive disorder, r ecurrent episode, mild F33.0 [facility] [address] [facility] [id number] [address] [place] [address] December, Acute bacterial conjunctivit is of left eye H10.022 [place] [address] [place] [id number] [address] [place] [address] December, Major depressive disorder, r ecurrent episode, mild F33.0 [facility] [address] [address] Nov, [facility] [address] [address] Nov, Major depressive disorder, r ecurrent episode, mild F33.0 [place] [address] [address] Nov, Hearing loss H91.90 [place] [address] [address] Oct, Major depression in partial remission F32.4 [place] [address] [address] Oct, Pneumonia J18.9 [facility] [address] [address] Oct, Influenza A J10.1 ; Fever, u nspecified R50.9 ; Conjunctivitis H10.9 and Cough R05 [place] [address] [place] [id number] [address] [place] [address] Oct, Major depressive disorder, r ecurrent episode, severe, 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 [place] [address] [place] [id number] [address] [place] [address] Aug, [place] [address] [address] Aug, Acquired hypothyroidism E03. 9 and Pure hypercholesterolemia E78.0 [place] [address] [address] Aug, Major depressive disorder, r ecurrent episode, severe, 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 [place] [address] [address] Jul, [facility] [address] [facility] [id number] [address] [place] [address] Jul, Major depressive disorder, r ecurrent episode, severe, 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 [facility] [address] [facility] [id number] [address] [place] [address] Jun, Major depressive disorder, r ecurrent episode, severe, 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 [facility] [address] [facility] [id number] [address] [place] [address] May, [facility] [address] [facility] [id number] [address] [place] [address] May, Major depressive disorder, r ecurrent episode, severe, 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 [facility] [address] [facility] [id number] [address] [place] [address] May, Major depressive disorder, r ecurrent episode, severe, 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 [facility] [address] [place] [id number] [address] [place] [address] Apr, [facility] [address] [place] [id number] [address] [place] [address] Apr, Depressive disorder, not els ewhere classified 311 and Unspecified psychosis 298.9 [place] [address] [place] [id number] [address] [place] [address] Apr, Depression 311 and Hard of h earing 389.9 [facility] [address] [facility] [id number] [address] [place] [address] Apr, Schizoaffective disorder 295 .70 [place] [address] [facility] [id number] [address] [place] [address] 08 Apr, 2015 Major depressive disorder, r ecurrent episode, severe, specified as with psychotic behavior 296.34 [facility] [address] [facility] [id number] [address] [place] [address] Apr, Psychosis 298.9 and Depressi on 311 [facility] [address] [place] [id number] [address] [place] [address] Apr, Depressive disorder, not els ewhere classified 311 and Unspecified psychosis 298.9 [facility] [address] [id number] [address] [place] [address] Mar, Screening for cervical cance r V76.2 ; Well woman exam with routine gynecological exam V72.31 ; Colon cancer screening V76.51 ; Breast cancer screening V76.10 ; Irritable bowel syndrome 564.1 and Psychosis 298.9 [facility] [address] [id number] [address] [place] [address] Mar, Psychosis 298.9 [facility] [address] [id number] [address] [place] [address] Mar, Unspecified psychosis 298.9 [facility] [address] [id number] [address] [place] [address] Nov, [facility] [address] [id number] [address] [place] [address] Nov, [facility] [address] [id number] [address] [place] [address] Oct, [facility] [address] [id number] [address] [place] [address] Oct, [facility] [address] [id number] [address] [place] [address] Jul, [facility] [address] [id number] [address] [place] [address] Jul, [facility] [address] [id number] [address] [place] [address] May, [facility] [address] [id number] [address] [place] [address] Apr, [facility] [address] [id number] [address] [place] [address] Apr, [facility] [address] [id number] [facility] [place] [address] 05 Apr, 2014 [facility] [address] [id number] [facility] [place] [address] 05 Apr, 2014 [facility] [address] [id number] [facility] [place] [address] Apr, [facility] [address] [id number] [address] [place] [address], [place] [address] Mar, [facility] [address] [id number] [facility] [place] [address] Mar, [facility] [address] [id number] [address] [place] [address], [place] [address] Mar, [facility] [address] [id number] [address] [place] [address], [place] [address] Mar, [facility] [address] [id number] [address] [place] [address], [place] [address] Mar, [facility] [address] [id number] [address] [place] [address], [place] [address] Mar, [facility] [address] [id number] [address] [place] [address], [place] [address] Mar, [facility] [address] [id number] [address] [place] [address], [place] [address] Mar, [facility] [address] [id number] [address] [place] [address], [place] [address] Mar, [facility] [address] [id number] [address] [place] [address], [place] [address] Mar, [facility] [address] [id number] [address] [place] [address], [place] [address] Jan, [facility] [address] [id number] [address] [place] [address], [place] [address] Jan, [facility] [address] [id number] [address] [place] [address], [place] [address] December, [facility] [address] [id number] [address] [place] [address], [place] [address] December, [facility] [address] [id number] [address] [place] [address], [place] [address] Nov, [facility] [address] [id number] [address] [place] [address], [place] [address] Nov, [facility] [address] [id number] [address] [place] [address], [place] [address] Sep, [facility] [address] [id number] [address] [place] [address], [place] [address] Sep, [facility] [address] [id number] [address] [place] [address], [place] [address] Sep, [facility] [address] [id number] [address] [place] [address], [place] [address] Sep, [facility] [address] [id number] [address] [place] [address], [place] [address] Jun, [facility] [address] [id number] [address] [place] [address], [place] [address] Jun, [facility] [address] [id number] [address] [place] [address], [place] [address] Jun, [facility] [address] [id number] [address] [place] [address], [place] [address] Jun, [facility] [address] [id number] [address] [place] [address], [place] [address] May, [facility] [address] [id number] [address] [place] [address], [place] [address] May, [facility] [address] [id number] [address] [place] [address], [place] [address] Apr, [facility] [address] [id number] [address] [place] [address], [place] [address] Mar, [facility] [address] [id number] [address] [place] [address], [place] [address] Mar, [facility] [address] [id number] [address] [place] [address], [place] [address] Mar, [facility] [address] [id number] [address] [place] [address], [place] [address] Mar, [facility] [address] [id number] [address] [place] [address], [place] [address] Mar, [facility] [address] [id number] [address] [place] [address], [place] [address] Jan, [facility] [address] [id number] [address] [place] [address], [place] [address] Jan, [facility] [address] [id number] [address] [place] [address], [place] [address] Jan, [facility] [address] [id number] [address] [place] [address], [place] [address] December, [facility] [address] [id number] [address] [place] [address], [place] [address] Oct, [facility] [address] [id number] [address] [place] [address], [place] [address] Oct, [facility] [address] [id number] [address] [place] [address], [place] [address] Oct, [facility] [address] [id number] [address] [place] [address], [place] [address] Oct, [facility] [address] [id number] [address] [place] [address], [place] [address] Aug, [facility] [address] [id number] [address] [place] [address], [place] [address] 16 Jun, 2012 [facility] [address] [id number] [address] [place] [address], [place] [address] 16 Jun, 2012 [facility] [address] [id number] [address] [place] [address], [place] [address] 14 Jun, 2012 [facility] [address] [id number] [address] [place] [address], [place] [address] Jun, [facility] [address] [id number] [address] [place] [address], [place] [address] May, [facility] [address] [id number] [address] [place] [address], [place] [address] Apr, [facility] [address] [id number] [address] [place] [address], [place] [address] Mar, [facility] [address] [id number] [address] [place] [address], [place] [address] Jan, [facility] [address] [id number] [address] [place] [address], [place] [address] Jan, [facility] [address] [id number] [address] [place] [address], [place] [address] December, [facility] [address] [id number] [address] [place] [address], [place] [address] December, [facility] [address] [id number] [address] [place] [address], [place] [address] December, [facility] [address] [id number] [address] [place] [address], [place] [address] December, [facility] [address] [id number] [address] [place] [address], [place] [address] Nov, [facility] [address] [id number] [address] [place] [address], [place] [address] Oct, [facility] [address] [id number] [address] [place] [address], [place] [address] Sep, [facility] [address] [id number] [address] [place] [address], [place] [address] Sep, [facility] [address] [id number] [address] [place] [address], [place] [address] Sep, [facility] [address] [id number] [address] [place] [address], [place] [address] Sep, [facility] [address] [facility] [id number] [address] [place] [id number] Aug, [facility] [address] [id number] [address] [place] [address] Jun, [facility] [address] [facility] [id number] [address] [place] [address] May, [facility] [address] [facility] [id number] [address] [place] [id number] Mar, [facility] [address] [facility] [id number] [address] [place] [id number] Jun, [facility] [address] [facility] [id number] [address] [place] [address] May, [facility] [address] [facility] [id number] [address] [place] [address] May, IMMUNIZATIONS No Known Immunizations SOCIAL HISTORY [...]
--- OUTSIDE RECORDS SUMMARY | 2020-02-21 11:44 | XMS REPORT ---
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 Active 58358997 Problem Pressure injury of left buttock, stage 2 L89.322 Active 474082785 Problem Hyperlipidemia, unspecified hyperlipidemia type E7 8.5 Active 76741148 Problem Pressure ulcer of left buttock, stage 3 L89.323 Active 343927211 Problem Gastroesophageal reflux disease without esophagitis K21.9 Active 272195585 Problem 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 Active 51679162 Problem Pure hypercholesterolemia E78.0 Acti ve 611720312 Problem Post menopausal syndrome N95.1 Activ e 243829409 Problem Decubitus ulcer of left leg, stage 2 L89.892 Active 479658353 Problem Falling R29.6 Active 377887818 Problem Pharyngoesophageal dysphagia R13.14 A ctive [id number] ALLERGIES No Information ENCOUNTERS Encounter Location Date Diagnosis [facility] [id number] [place] [address] December, [facility] [id number] [place] [address] Oct, [facility] [address] [id number] [place] [address] Oct, [facility] [address] [id number] [place], [place] [address] Sep, Falling R29.6 ; Pharyngoesophageal dysph agia R13.14 and Pressure ulcer of left buttock, stage 3 L89.323 [place] [address] [address] Sep, Exercise counseling Z71.82 [place] [address] [address] 18 Sep, 2019 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 due to a coleman bstance or known physiological condition F28 and Falling R29.6 [place] [address] [place] [address] 13 Sep, 2019 [place] [address] [place] [address] 12 Sep, 2019 Falling R29.6 [place] [address] [address] 06 Sep, 2019 [place] [address] [address] Sep, Acquired hypothyroidism E03.9 and Fallin g R29.6 [place] [address] [address] Aug, Depression, major, 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 [place] [address] [address] May, Depression, major, 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 [place] [address] [address] May, Wound of left lower extremity, subsequen t encounter S81.802D [place] [address] [address] May, Wound of left lower extremity, subsequen t encounter S81.802D [place] [address] [address] 14 May, 2019 Wound of left lower extremity, subsequen t encounter S81.802D [place] [address] [address] May, Wound of left lower extremity, subsequen t encounter S81.802D [place] [address] [address] May, [place] [address] [address] May, Peripheral edema R60.9 ; Decubitus ulcer of left leg, stage 2 L89.892 ; Dry skin dermatitis L85.3 ; Encounter for immunization Z23 and Breast cancer screening Z12.39 [place] [address] [address] Mar, [place] [address] [address] Jan, Depression, major, 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 an d Morbid obesity E66.01 [place] [address] [address] Jan, Encounter for Medicare annual wellness e xam Z00.00 ; Hyperlipidemia, unspecified hyperlipidemia type E78.5 ; Depression, major, 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 ; Gastroesophageal reflux disease without esophagitis K21.9 ; Acquired hypothyroidism E03.9 ; Hearing loss of both ears H91.93 ; Post menopausal syndrome N95.1 and Morbid obesity E66.01 [place] [address] [address] Jan, Hyperlipidemia, unspecified hyperlipidem ia type E78.5 and Morbid obesity E66.01 [place] [address] [address] Jan, [place] [address] [address] December, [place] [address] [address] December, [place] [address] [address] December, [facility] [id number] [place] [address] December, Wound of left lower extremity, subsequen t encounter S81.802D [facility] [id number] [place] [address] Nov, [facility] [id number] [place] [address] Nov, Blister of left lower extremity without infection, initial encounter S80.822A and Morbid obesity E66.01 [facility] [id number] [place] [address] Nov, [facility] [address] [place] [address] Nov, [facility] [id number] [place] [address] Nov, [facility] [address] [address] Nov, [facility] [id number] [place] [address] Nov, [facility] [address] [address] Nov, [facility] [id number] [place] [address] Oct, [facility] [address] [address] Oct, Depression, major, 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 [facility] [id number] [place] [address] Oct, [facility] [id number] [place] [address] Oct, [facility] [id number] [place] [address] Oct, [facility] [address] [place] [address] Oct, Morbid obesity E66.01 and Pressure injur y of left buttock, stage 2 L89.322 [place] [address] [address] Oct, [place] [address] [address] Oct, [place] [address] [address] Oct, [place] [address] [address] Oct, Pressure injury of other site, stage 2 L 89.892 and Morbid obesity E66.01 [place] [address] [address] Sep, Cellulitis of other specified site L03.8 18 and BMI 40.0-44.9, adult Z68.41 [place] [address] [address] 13 Sep, 2018 Scab R23.4 and BMI 40.0-44.9, adult Z68. 41 [place] [address] [address] Jun, Major depression 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 [place] [address] [address] Apr, [place] [address] [address] Apr, Encounter for breast cancer screening ot her than mammogram Z12.39 ; Encounter for immunization Z23 and Colon cancer screening Z12.11 [place] [address] [address] 30 Mar, 2018 Major depression in partial remission F3 2.4 and BMI 40.0-44.9, adult Z68.41 [place] [address] [address] Mar, [place] [address] [address] Mar, Acquired hypothyroidism E03.9 [place] [address] [address] Mar, Pain in left knee M25.562 ; Other chroni c pain G89.29 and Gastroesophageal reflux disease without esophagitis K21.9 [facility] [address] [address] Jan, [place] [address] [address] Jan, Acquired hypothyroidism E03.9 [place] [address] [address] Jan, [place] [address] [address] Jan, Acquired hypothyroidism E03.9 [place] [address] [address] December, Major depressive disorder in full remiss ion, unspecified whether recurrent F32.5 [place] [address] [address] Nov, Acquired hypothyroidism E03.9 [place] [address] [address] Nov, Pure hypercholesterolemia E78.0 ; Periph eral edema R60.9 and Acquired hypothyroidism E03.9 [place] [address] [address] Oct, Mild acid reflux K21.9 [place] [address] [address] Sep, Major depressive disorder, single episod e, in partial remission F32.4 and Long-term use of high-risk medication Z79.899 [place] [address] [address] Aug, Encounter for immunization Z23 [place] [address] [address] Jul, [place] [address] [address] Jun, Medicare annual wellness visit, initial Z00.00 ; BMI 40.0-44.9, adult Z68.41 and Encounter for immunization Z23 [place] [address] [address] 10 May, 2017 [place] [address] [address] May, Encounter for immunization Z23 [place] [address] [address] May, Major depression in partial remission F3 2.4 [place] [address] [address] Apr, Hearing loss H91.90 ; Encounter for immu nization Z23 and Encounter for screening mammogram for breast cancer Z12.31 [place] [address] [address] Mar, Acquired hypothyroidism E03.9 [place] [address] [address] Jan, Acquired hypothyroidism E03.9 [place] [address] [address] Jan, Acute midline low back pain without scia suraj M54.5 [place] [address] [address] Jan, Peripheral edema R60.9 [place] [address] [address] Jan, Major depression in partial remission F3 2.4 [place] [address] [address] Jan, Localized edema R60.0 [place] [address] [address] Nov, Pure hypercholesterolemia E78.0 [place] [address] [place] [address] Nov, Pure hypercholesterolemia E78.0 [place] [address] [address] Nov, Peripheral edema R60.9 [place] [address] [address] Oct, Major depression in partial remission F3 2.4 [place] [address] [address] Aug, [place] [address] [address] Aug, Elevated blood pressure reading R03.0 [place] [address] [address] Aug, [place] [address] [address] Jun, Major depression in partial remission F3 2.4 [place] [address] [address] Apr, Major depressive disorder, recurrent epi sode, mild F33.0 [place] [address] [address] Mar, Encounter for well woman exam with ilene winter gynecological exam Z01.419 and Breast cancer screening Z12.39 [place] [address] [address] Jan, Hypothyroidism, unspecified type E03.9 [place] [address] [address] Jan, Major depressive disorder, recurrent epi sode, mild F33.0 [place] [address] [address] Jan, Abscess L02.91 [place] [address] [address] Jan, Furuncle L02.92 [place] [address] [address] 16 Jan, 2016 Major depression in partial remission F3 2.4 [place] [address] [address] 13 Jan, 2016 Major depressive disorder, recurrent epi sode, mild F33.0 [facility] [id number] [place] [address] 17 Dec, 2015 Acute bacterial conjunctivit is of left eye H10.022 [place] [address] [address] December, Major depressive disorder, recurrent epi sode, mild F33.0 [place] [address] [address] Nov, [place] [address] [address] Nov, Major depressive disorder, recurrent epi sode, mild F33.0 [place] [address] [address] Nov, Hearing loss H91.90 [place] [address] [address] 17 Oct, 2015 Major depression in partial remission F3 2.4 [place] [address] [address] 15 Oct, 2015 Pneumonia J18.[address] [facility] [address] [place] [address] 10 Oct, 2015 Influenza A J10.1 ; Fever, u nspecified R50.9 ; Conjunctivitis H10.9 and Cough R05 [place] [address] [address] 10 Oct, 2015 Major depressive disorder, recurrent epi sode, severe, 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 [place] [address] [address] Aug, [place] [address] [address] Aug, Acquired hypothyroidism E03.9 and Pure h ypercholesterolemia E78.0 [place] [address] [address] Aug, Major depressive disorder, recurrent epi sode, severe, 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 [place] [address] [address] Jul, [place] [address] [address] Jul, Major depressive disorder, recurrent epi sode, severe, 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 [place] [address] [address] Jun, Major depressive disorder, recurrent epi sode, severe, 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 [place] [address] [address] May, [place] [address] [address] May, Major depressive disorder, recurrent epi sode, severe, 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 [place] [address] [address] May, Major depressive disorder, recurrent epi sode, severe, 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 [place] [address] [address] Apr, [place] [address] [address] Apr, Depressive disorder, not elsewhere class ified 311 and Unspecified psychosis 298.[address] [address] Apr, Depression 311 and Hard of hearing 389.9 [place] [id number] [place] [address] 10 Apr, 2015 Schizoaffective disorder 295.70 [place] [address] [place] [address] 08 Apr, 2015 Major depressive disorder, recurrent epi sode, severe, specified as with psychotic behavior 296.34 [facility] [address] [address] Apr, Psychosis 298.9 and Depression 311 [facility] [address] [address] Apr, Depressive disorder, not elsewhere class ified 311 and Unspecified psychosis 298.9 [facility] [address] [address] Mar, Screening for cervical cancer V76.2 ; We ll woman exam with routine gynecological exam V72.31 ; Colon cancer screening V76.51 ; Breast cancer screening V76.10 ; Irritable bowel syndrome 564.1 and Psychosis 298.9 [place] [address] [address] Mar, Psychosis 298.9 [place] [address] [address] Mar, Unspecified psychosis 298.9 [place] [address] [address] Nov, [facility] [address] [address] Nov, [place] [address] [address] Oct, [facility] [address] [address] Oct, [facility] [address] [address] Jul, [place] [address] [address] Jul, [facility] [address] [address] May, [facility] [address] [address] Apr, 2013 [facility] [place] [facility] [address] [id number] [place] [address] Apr, [facility] [place] [facility] [address] [facility] [id number] [place] [address] Apr, [facility] [place] [facility] [address] [facility] [id number] [place] [address] Apr, [facility] [place] [facility] [address] [facility] [id number] [place] [address] Apr, [facility] [place] [facility] [address] [id number] [place] [address] Mar, [facility] [place] [facility] [address] [facility] [id number] [place] [address] Mar, [facility] [place] [facility] [address] [id number] [place] [address] Mar, [facility] [place] [facility] [address] [id number] [place] [address] Mar, [facility] [place] [facility] [address] [id number] [place] [address] Mar, [facility] [place] [facility] [address] [id number] [place] [address] Mar, [facility] [place] [facility] [address] [id number] [place] [address] Mar, [facility] [place] [facility] [address] [id number] [place] [address] Mar, [facility] [place] [facility] [address] [facility] [id number] [place] [address] Mar, [facility] [place] [facility] [address] [id number] [place] [address] Mar, [facility] [place] [facility] [address] [facility] [id number] [place] [address] Jan, [facility] [place] [facility] [address] [id number] [place] [address] Jan, [facility] [place] [facility] [address] [id number] [place] [address] December, [facility] [place] [facility] [address] [id number] [place] [address] December, [facility] [place] [facility] [address] [id number] [place] [address] Nov, [facility] [place] [facility] [address] [id number] [place] [address] Nov, [facility] [place] [facility] [address] [id number] [place] [address] Sep, [facility] [place] [facility] [address] [id number] [place] [address] Sep, [facility] [place] [facility] [id number] [place] [address] Sep, [facility] [place] [facility] [id number] [place] [address] Sep, [facility] [place] [facility] [id number] [place] [address] Jun, [facility] [place] [facility] [address] [id number] [place] [address] Jun, [facility] [place] [facility] [id number] [place] [address] Jun, [facility] [place] [facility] [address] [id number] [place] [address] Jun, [facility] [place] [facility] [id number] [place] [address] May, [facility] [place] [facility] [address] [id number] [place] [address] May, [facility] [place] [facility] [id number] [place] [address] Apr, [facility] [place] [facility] [address] [id number] [place] [address] Mar, [facility] [place] [facility] [id number] [place] [address] Mar, [facility] [place] [facility] [address] [facility] [id number] [place] [address] Mar, [facility] [place] [facility] [address] [facility] [id number] [place] [address] Mar, [facility] [place] [facility] [address] [id number] [place] [address] Mar, [facility] [place] [facility] [address] [id number] [place] [address] Jan, [facility] [place] [facility] [address] [facility] [id number] [place] [address] Jan, [facility] [place] [facility] [address] [id number] [place] [address] Jan, [facility] [place] [facility] [address] [id number] [place] [address] December, [facility] [place] [facility] [address] [id number] [place] [address] Oct, [facility] [place] [facility] [address] [id number] [place] [address] Oct, [facility] [place] [facility] [address] [id number] [place] [address] Oct, [facility] [place] [facility] [address] [id number] [place] [address] Oct, [facility] [place] [facility] [address] [id number] [place] [address] Aug, [facility] [place] [facility] [address] [id number] [place] [address] Jun, [facility] [place] [facility] [address] [id number] [place] [address] 16 Jun, 2012 [facility] [place] [facility] [address] [id number] [place] [address] 14 Jun, 2012 [facility] [place] [facility] [address] [id number] [place] [address] Jun, [facility] [place] [facility] [address] [id number] [place] [address] May, [facility] [place] [facility] [address] [id number] [place] [address] Apr, [facility] [place] [facility] [address] [id number] [place] [address] Mar, [facility] [place] [facility] [address] [id number] [place] [address] Jan, [facility] [place] [facility] [address] [id number] [place] [address] Jan, [facility] [place] [facility] [address] [id number] [place] [address] December, [facility] [place] [facility] [address] [id number] [place] [address] December, [facility] [place] [facility] [address] [id number] [place] [address] December, [facility] [place] [facility] [address] [id number] [place] [address] December, [facility] [place] [facility] [address] [id number] [place] [address] Nov, [facility] [place] [facility] [address] [id number] [place] [address] Oct, [facility] [place] [facility] [address] [id number] [place] [address] Sep, [facility] [place] [facility] [address] [id number] [place] [address] Sep, [facility] [place] [facility] [address] [id number] [place] [address] Sep, [facility] [place] [facility] [id number] [place] [address] Sep, [facility] [place] [facility] [address] [id number] [place] [address] Aug, [facility] [address] [id number] [place] [address] Jun, [facility] [address] [id number] [place] [address] May, [facility] [address] [id number] [place] [address] Mar, [facility] [address] [id number] [place] [address] Jun, [facility] [address] [id number] [place] [address] May, [facility] [address] [id number] [place] [address] May, IMMUNIZATIONS No Known Immunizations SOCIAL HISTORY Never Assessed REASON FOR VISIT wound check- wound has not changed, appears the same. Jairo suggested putting Shorty cium alginate on the wound then placing the silicone dressing over that, told pt to come back on Thursday- Simba Pablo RN PLAN OF CARE VITAL SIGNS MEDICATIONS Unknown [...]
--- OUTSIDE RECORDS SUMMARY | 2020-02-21 11:44 | XMS REPORT ---
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 Active 11539703 Problem Pressure injury of left buttock, stage 2 L89.322 Active 313036810 Problem Hyperlipidemia, unspecified hyperlipidemia type E7 8.5 Active 80149447 Problem Pressure ulcer of left buttock, stage 3 L89.323 Active 525032161 Problem Gastroesophageal reflux disease without esophagitis K21.9 Active 863013050 Problem 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 Active 34443828 Problem Pure hypercholesterolemia E78.0 Acti ve 748469945 Problem Post menopausal syndrome N95.1 Activ e 444314915 Problem Decubitus ulcer of left leg, stage 2 L89.892 Active 420544152 Problem Falling R29.6 Active 622855304 Problem Pharyngoesophageal dysphagia R13.14 A ctive 11771587 ALLERGIES Substance Reaction Event Type Date Status Penicillins Unknown Non Drug Allergy Oct, Active ENCOUNTERS Encounter Location Date Diagnosis [facility] [id number] [place] [address] December, [facility] [address] [id number] [place] [address] Oct, [facility] [address] [id number] [place] [address] Oct, Exercise counseling Z71.82 [place] [address] [id number] 26 Sep, 2019 Falling R29.6 ; Pharyngoesophageal dysph agia R13.14 and Pressure ulcer of left buttock, stage 3 L89.323 [place] [address] [id number] Sep, Exercise counseling Z71.82 [place] [address] [place] [address] 18 Sep, 2019 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 due to a coleman bstance or known physiological condition F28 and Falling R29.6 [place] [address] [place] [address] 13 Sep, 2019 [place] [address] [address] 12 Sep, 2019 Falling R29.6 [place] [address] [address] Sep, [place] [address] [address] 05 Sep, 2019 Acquired hypothyroidism E03.9 and Fallin g R29.6 [place] [address] [address] Aug, Depression, major, 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 [place] [address] [address] May, Depression, major, 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 [place] [address] [address] May, Wound of left lower extremity, subsequen t encounter S81.802D [facility] [address] [address] 17 May, 2019 Wound of left lower extremity, subsequen t encounter S81.802D [place] [address] [address] 14 May, 2019 Wound of left lower extremity, subsequen t encounter S81.802D [place] [id number] [place] [address] May, Wound of left lower extremity, subsequen t encounter S81.802D [facility] [id number] [place] [address] May, [place] [address] [address] May, Peripheral edema R60.9 ; Decubitus ulcer of left leg, stage 2 L89.892 ; Dry skin dermatitis L85.3 ; Encounter for immunization Z23 and Breast cancer screening Z12.39 [place] [id number] [place] [address] Mar, [place] [id number] [place] [address] Jan, Depression, major, 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 an d Morbid obesity E66.01 [place] [id number] [place] [address] Jan, Encounter for Medicare annual wellness e xam Z00.00 ; Hyperlipidemia, unspecified hyperlipidemia type E78.5 ; Depression, major, 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 ; Gastroesophageal reflux disease without esophagitis K21.9 ; Acquired hypothyroidism E03.9 ; Hearing loss of both ears H91.93 ; Post menopausal syndrome N95.1 and Morbid obesity E66.01 [place] [id number] [place] [address] Jan, Hyperlipidemia, unspecified hyperlipidem ia type E78.5 and Morbid obesity E66.01 [place] [id number] [place] [address] Jan, [place] [id number] [place] [address] December, [facility] [id number] [place] [address] December, [place] [id number] [place] [address] December, [facility] [id number] [place] [address] December, Wound of left lower extremity, subsequen t encounter S81.802D [facility] [id number] [place] [address] Nov, [facility] [id number] [place] [address] Nov, Blister of left lower extremity without infection, initial encounter S80.822A and Morbid obesity E66.01 [facility] [id number] [place] [address] Nov, [facility] [id number] [place] [address] Nov, [facility] [id number] [place] [address] Nov, [facility] [id number] [place] [address] Nov, [facility] [id number] [place] [address] Nov, [facility] [id number] [place] [address] Nov, [facility] [id number] [place] [address] Oct, [facility] [id number] [place] [address] Oct, Depression, major, 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 [facility] [id number] [place] [address] Oct, [facility] [id number] [place] [address] Oct, [facility] [id number] [place] [address] Oct, [facility] [address] [address] 20 Oct, 2018 Morbid obesity E66.01 and Pressure injur y of left buttock, stage 2 L89.322 [place] [address] [address] 13 Oct, 2018 [place] [address] [address] 11 Oct, 2018 [place] [address] [address] 08 Oct, 2018 [place] [address] [address] Oct, Pressure injury of other site, stage 2 L 89.892 and Morbid obesity E66.01 [place] [address] [address] Sep, Cellulitis of other specified site L03.8 18 and BMI 40.0-44.9, adult Z68.41 [place] [address] [address] 13 Sep, 2018 Scab R23.4 and BMI 40.0-44.9, adult Z68. 41 [place] [address] [address] Jun, Major depression 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 [place] [address] [address] Apr, [place] [address] [address] 24 Apr, 2018 Encounter for breast cancer screening ot her than mammogram Z12.39 ; Encounter for immunization Z23 and Colon cancer screening Z12.11 [place] [address] [address] 30 Mar, 2018 Major depression in partial remission F3 2.4 and BMI 40.0-44.9, adult Z68.41 [place] [address] [address] Mar, [place] [address] [address] Mar, Acquired hypothyroidism E03.9 [place] [address] [address] Mar, Pain in left knee M25.562 ; Other chroni c pain G89.29 and Gastroesophageal reflux disease without esophagitis K21.9 [place] [address] [address] Jan, [place] [address] [address] Jan, Acquired hypothyroidism E03.9 [place] [address] [address] Jan, [place] [address] [address] Jan, Acquired hypothyroidism E03.9 [place] [address] [address] December, Major depressive disorder in full remiss ion, unspecified whether recurrent F32.5 [place] [address] [address] Nov, Acquired hypothyroidism E03.9 [place] [address] [address] Nov, Pure hypercholesterolemia E78.0 ; Periph eral edema R60.9 and Acquired hypothyroidism E03.9 [place] [address] [address] Oct, Mild acid reflux K21.9 [place] [address] [address] Sep, Major depressive disorder, single episod e, in partial remission F32.4 and Long-term use of high-risk medication Z79.899 [place] [address] [address] Aug, Encounter for immunization Z23 [place] [address] [address] Jul, [place] [address] [address] Jun, Medicare annual wellness visit, initial Z00.00 ; BMI 40.0-44.9, adult Z68.41 and Encounter for immunization Z23 [place] [address] [address] May, [place] [address] [address] May, Encounter for immunization Z23 [place] [address] [address] May, Major depression in partial remission F3 2.4 [place] [address] [address] Apr, Hearing loss H91.90 ; Encounter for immu nization Z23 and Encounter for screening mammogram for breast cancer Z12.31 [place] [address] [address] Mar, Acquired hypothyroidism E03.9 [place] [address] [address] Jan, Acquired hypothyroidism E03.9 [place] [address] [address] Jan, Acute midline low back pain without scia suraj M54.5 [place] [address] [address] Jan, Peripheral edema R60.9 [place] [address] [address] Jan, Major depression in partial remission F3 2.4 [place] [address] [address] Jan, Localized edema R60.0 [place] [address] [address] Nov, Pure hypercholesterolemia E78.0 [place] [address] [address] Nov, Pure hypercholesterolemia E78.0 [place] [address] [address] Nov, Peripheral edema R60.9 [place] [address] [address] Oct, Major depression in partial remission F3 2.4 [place] [address] [address] Aug, [place] [address] [address] Aug, Elevated blood pressure reading R03.0 [place] [address] [address] Aug, [place] [address] [address] Jun, Major depression in partial remission F3 2.4 [place] [address] [address] Apr, Major depressive disorder, recurrent epi sode, mild F33.0 [place] [address] [address] Mar, Encounter for well woman exam with ilene winter gynecological exam Z01.419 and Breast cancer screening Z12.39 [place] [address] [address] Jan, Hypothyroidism, unspecified type E03.9 [place] [address] [address] Jan, Major depressive disorder, recurrent epi sode, mild F33.0 [place] [address] [address] Jan, Abscess L02.91 [place] [address] [address] Jan, Furuncle L02.92 [place] [address] [address] 16 Jan, 2016 Major depression in partial remission F3 2.4 [place] [address] [address] 13 Jan, 2016 Major depressive disorder, recurrent epi sode, mild F33.0 [facility] [id number] [place] [address] December, Acute bacterial conjunctivit is of left eye H10.022 [place] [address] [address] December, Major depressive disorder, recurrent epi sode, mild F33.0 [place] [address] [address] Nov, [place] [address] [address] Nov, Major depressive disorder, recurrent epi sode, mild F33.0 [place] [address] [address] 18 Nov, 2015 Hearing loss H91.90 [place] [address] [address] 17 Oct, 2015 Major depression in partial remission F3 2.4 [place] [address] [address] 15 Oct, 2015 Pneumonia J18.9 [facility] [address] [place] [address] 10 Oct, 2015 Influenza A J10.1 ; Fever, u nspecified R50.9 ; Conjunctivitis H10.9 and Cough R05 [place] [address] [address] 10 Oct, 2015 Major depressive disorder, recurrent epi sode, severe, 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 [place] [address] [address] Aug, [place] [address] [address] Aug, Acquired hypothyroidism E03.9 and Pure h ypercholesterolemia E78.0 [place] [address] [address] 08 Aug, 2015 Major depressive disorder, recurrent epi sode, severe, 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 [address] [address] [address] Jul, [address] [id number] Jul, Major depressive disorder, recurrent epi sode, severe, 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 [place] [address] [address] Jun, Major depressive disorder, recurrent epi sode, severe, 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 [place] [address] [address] May, [address] [address] May, Major depressive disorder, recurrent epi sode, severe, 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 [address] May, Major depressive disorder, recurrent epi sode, severe, 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 [place] [address] [address] Apr, [address] [address] Apr, Depressive disorder, not elsewhere class ified 311 and Unspecified psychosis 298.[address] [address] 29 Apr, 2015 Depression 311 and Hard of hearing 389.[address] [address] 10 Apr, 2015 Schizoaffective disorder 295.70 [facility] [id number] [place] [address] 08 Apr, 2015 Major depressive disorder, recurrent epi sode, severe, specified as with psychotic behavior 296.34 [facility] [address] [address] Apr, Psychosis 298.9 and Depression 311 [facility] [address] [address] Apr, Depressive disorder, not elsewhere class ified 311 and Unspecified psychosis 298.9 [place] [address] [address] Mar, Screening for cervical cancer V76.2 ; We ll woman exam with routine gynecological exam V72.31 ; Colon cancer screening V76.51 ; Breast cancer screening V76.10 ; Irritable bowel syndrome 564.1 and Psychosis 298.9 [place] [address] [address] Mar, Psychosis 298.9 [facility] [address] [address] Mar, Unspecified psychosis 298.9 [address] [address] [address] Nov, [facility] [address] [address] Nov, [facility] [address] [address] Oct, [facility] [address] [address] Oct, [facility] [address] [address] Jul, [facility] [address] [address] Jul, [facility] [address] [address] May, [facility] [address] [id number] [place] [address] Apr, [facility] [address] [facility] [id number] [place] [address] Apr, [facility] [address] [facility] [id number] [place] [address] Apr, 2013 [facility] [address] [id number] [place] [address] Apr, [facility] [address] [facility] [id number] [place] [address] Apr, [facility] [address] [id number] [place] [address] Mar, [facility] [address] [id number] [place] [address] Mar, [facility] [address] [id number] [place] [address] Mar, [facility] [address] [id number] [place] [address] Mar, [facility] [address] [id number] [place] [address] Mar, [facility] [address] [id number] [place] [address] Mar, [facility] [address] [id number] [place] [address] Mar, [facility] [address] [id number] [place] [address] Mar, [facility] [address] [id number] [place] [address] Mar, [facility] [address] [id number] [place] [address] Mar, [facility] [address] [id number] [place] [address] Jan, [facility] [address] [id number] [place] [address] Jan, [facility] [address] [id number] [place] [address] December, [facility] [address] [id number] [place] [address] December, [facility] [address] [id number] [place] [address] Nov, [facility] [address] [id number] [place] [address] Nov, [facility] [address] [id number] [place] [address] Sep, [facility] [address] [id number] [place] [address] Sep, [facility] [address] [id number] [place] [address] Sep, [facility] [address] [id number] [place] [address] Sep, [facility] [address] [id number] [place] [address] Jun, [facility] [address] [id number] [place] [address] Jun, [facility] [address] [id number] [place] [address] Jun, [facility] [address] [id number] [place] [address] Jun, [facility] [address] [id number] [place] [address] May, [facility] [address] [id number] [place] [address] May, [facility] [address] [id number] [place] [address] Apr, [facility] [address] [id number] [place] [address] Mar, [facility] [address] [id number] [place] [address] Mar, [facility] [address] [id number] [place] [address] Mar, [facility] [address] [id number] [place] [address] Mar, [facility] [address] [id number] [place] [address] Mar, [facility] [address] [id number] [place] [address] Jan, [facility] [address] [id number] [place] [address] Jan, [facility] [address] [id number] [place] [address] Jan, [facility] [address] [id number] [place] [address] December, [facility] [address] [id number] [place] [address] Oct, [facility] [address] [id number] [place] [address] Oct, [facility] [address] [id number] [place] [address] Oct, [facility] [address] [id number] [place] [address] Oct, [facility] [address] [id number] [place] [address] Aug, [facility] [address] [id number] [place] [address] Jun, [facility] [address] [id number] [place] [address] 16 Jun, 2012 [facility] [address] [id number] [place] [address] 14 Jun, 2012 [facility] [address] [id number] [place] [address] Jun, [facility] [address] [id number] [place] [address] May, [facility] [address] [id number] [place] [address] Apr, [facility] [address] [id number] [place] [address] Mar, [facility] [address] [id number] [place] [address] Jan, [facility] [address] [id number] [place] [address] Jan, [facility] [address] [id number] [place] [address] December, [facility] [address] [id number] [place] [address] December, [facility] [address] [id number] [place] [address] December, [facility] [address] [id number] [place] [address] December, [facility] [address] [id number] [place] [address] Nov, [facility] [address] [id number] [place] [address] Oct, [facility] [address] [id number] [place] [address] Sep, [facility] [address] [id number] [place] [address] Sep, [facility] [address] [id number] [place] [address] Sep, [facility] [address] [id number] [place] [address] Sep, [facility] [address] [id number] [place] [address] Aug, [facility] [address] [id number] [place] [address] Jun, [facility] [address] [id number] [place] [address] May, [facility] [address] [id number] [place] [address] Mar, [facility] [id number] [place] [address] Jun, [facility] [id number] [place] [address] May, [facility] [address] [id number] [place] [address] May, IMMUNIZATIONS No Known Immunizations SOCIAL HISTORY Never Assessed REASON FOR VISIT continued leg pain Pt has a spot on inner thigh that still is not healing Gianluca jay MA PLAN OF CARE Activity Details Follow Up 2 - 3 Days Reason:nurse visi t for wound dressing VITAL SIGNS Height 65 in 2018-10-20 Weight 242.5 lbs 2018-10-20 Temperature 98.3 degrees Fahrenheit 2018-10-20 Heart Rate 72 bpm 2018-10-20 Respiratory Rate 18 2018-10-20 Oximetry 100 % 2018-10-20 BMI 40.35 kg/m2 2018-10-20 Blood pressure systolic 162 mmHg 2018-10-20 Blood pressure diastolic 88 mmHg 2018-10-20 MEDICATIONS Medication Instructions Dosage Frequency Start Date End Date Duration S tatus Trazodone HCl 50 mg Orally Once at bedtime for sleep 1 tablet 30 Active Aripiprazole 5 MG Orally at bedtime 1 tablet 30 Active Omeprazole 20 mg Orally Once a day 1 capsule 24h 90 Active Fluoxetine HCl 10 MG TAKE THREE CAPSULES BY MOUTH ONCE DAILY IN THE MORNING 30 Active Bentyl 10 MG Orally Four times a day befo re meals and at bedtime for urgency with bowel movements 1 capsule 30 Acti ve Mupirocin 2 % Externally Once a day 4 grm to affected area 24h 2 5 Sep, 2018 7 days Active Levothyroxine Sodium 112 MCG Orally Once a day 1 tablet on an empty stomach in the morning 24h 90 Active Dicyclomine HCl 20 MG TAKE ONE-HALF TABL ET BY MOUTH FOUR (4) TIMES DAILY BEFORE MEALS AND AT BEDTIME FOR URGENCY WITH BOWEL MOVEMENTS 30 Active Lovastatin 20 MG TAKE ONE TABLET BY MOUTH ONCE DAILY 90 Active Lasix 40 mg Orally twice a day in AM and noon 1 tablet Jan, 2 017 5 days Active RESULTS No Results PROCEDURES Procedure Date Ordered Result Body Site [facility] VISIT ESTABLISHED PATIENT October 20, 2018 INSTRUCTIONS MEDICATIONS ADMINISTERED No Known Medications MEDICAL (GENERAL) HISTORY Type Description Date Medical History depression Medical History hypothryroidism Medical History hyperlipidemia Medical History trauma: Stroke - with L side faci al drooping Surgical History hysterectomy Surgical History cholecystectomy Surgical History gall bladder removal Hospitalization History surgeries Hospitalization History stroke
--- OUTSIDE RECORDS SUMMARY | 2020-02-21 11:44 | XMS REPORT ---
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 Active 55046247 Problem Pressure injury of left buttock, stage 2 L89.322 Active 978050930 Problem Hyperlipidemia, unspecified hyperlipidemia type E7 8.5 Active 91511822 Problem Pressure ulcer of left buttock, stage 3 L89.323 Active 743760786 Problem Gastroesophageal reflux disease without esophagitis K21.9 Active 644687812 Problem 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 Active 40723644 Problem Pure hypercholesterolemia E78.0 Acti ve 075717277 Problem Post menopausal syndrome N95.1 Activ e 647856972 Problem Decubitus ulcer of left leg, stage 2 L89.892 Active 190075051 Problem Falling R29.6 Active 439950302 Problem Pharyngoesophageal dysphagia R13.14 A ctive [id number] ALLERGIES No Information ENCOUNTERS Encounter Location Date Diagnosis [facility] [id number] [place] [address] December, [facility] [id number] [place] [address] Oct, [facility] [id number] [place] [address] Oct, Exercise counseling Z71.82 [facility] [id number] [place] [address] Oct, Exercise counseling Z71.82 [facility] [address] [id number] Oct, Exercise counseling Z71.82 [facility] [address] [address] Sep, Falling R29.6 ; Pharyngoesophageal dysph agia R13.14 and Pressure ulcer of left buttock, stage 3 L89.323 [facility] [address] [address] 20 Sep, 2019 Exercise counseling Z71.82 [facility] [address] [place] [address] [address] 18 Sep, 2019 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 due to a coleman bstance or known physiological condition F28 and Falling R29.6 [facility] [address] [address] 13 Sep, 2019 [facility] [address] [address] Sep, Falling R29.6 [facility] [address] [address] 06 Sep, 2019 [facility] [address] [address] 05 Sep, 2019 Acquired hypothyroidism E03.9 and Fallin g R29.6 [facility] [address] [address] Aug, Depression, major, 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 [facility] [address] [address] May, Depression, major, 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 [facility] [address] [address] May, Wound of left lower extremity, subsequen t encounter S81.802D [facility] [address] [address] May, Wound of left lower extremity, subsequen t encounter S81.802D [facility] [address] [address] 14 May, 2019 Wound of left lower extremity, subsequen t encounter S81.802D [facility] [address] [address] 11 May, 2019 Wound of left lower extremity, subsequen t encounter S81.802D [facility] [address] [address] May, [facility] [address] [address] May, Peripheral edema R60.9 ; Decubitus ulcer of left leg, stage 2 L89.892 ; Dry skin dermatitis L85.3 ; Encounter for immunization Z23 and Breast cancer screening Z12.39 [facility] [address] [address] Mar, [facility] [address] [address] Jan, Depression, major, 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 an d Morbid obesity E66.01 [facility] [address] [address] Jan, Encounter for Medicare annual wellness e xam Z00.00 ; Hyperlipidemia, unspecified hyperlipidemia type E78.5 ; Depression, major, 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 ; Gastroesophageal reflux disease without esophagitis K21.9 ; Acquired hypothyroidism E03.9 ; Hearing loss of both ears H91.93 ; Post menopausal syndrome N95.1 and Morbid obesity E66.01 [facility] [address] [address] Jan, Hyperlipidemia, unspecified hyperlipidem ia type E78.5 and Morbid obesity E66.01 [facility] [address] [address] Jan, [facility] [address] [address] December, [facility] [address] [place] [address] December, [facility] [address] [address] December, [facility] [address] [address] December, Wound of left lower extremity, subsequen t encounter S81.802D [facility] [address] [address] Nov, [facility] [address] [address] Nov, Blister of left lower extremity without infection, initial encounter S80.822A and Morbid obesity E66.01 [facility] [address] [address] Nov, [facility] [address] [address] Nov, [facility] [address] [address] Nov, [facility] [address] [address] Nov, [facility] [address] [address] Nov, [facility] [id number] [place] [address] Nov, [facility] [address] [address] Oct, [facility] [address] [address] Oct, Depression, major, 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 [facility] [address] [address] Oct, [facility] [address] [address] Oct, [facility] [address] [address] Oct, [facility] [address] [address] Oct, Morbid obesity E66.01 and Pressure injur y of left buttock, stage 2 L89.322 [facility] [address] [address] Oct, [facility] [address] [address] Oct, [facility] [address] [address] Oct, [facility] [address] [address] Oct, Pressure injury of other site, stage 2 L 89.892 and Morbid obesity E66.01 [facility] [address] [address] Sep, Cellulitis of other specified site L03.8 18 and BMI 40.0-44.9, adult Z68.41 [facility] [address] [address] 13 Sep, 2018 Scab R23.4 and BMI 40.0-44.9, adult Z68. 41 [facility] [address] [address] Jun, Major depression 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 [facility] [address] [address] Apr, [facility] [address] [address] 24 Apr, 2018 Encounter for breast cancer screening ot her than mammogram Z12.39 ; Encounter for immunization Z23 and Colon cancer screening Z12.11 [facility] [address] [address] Mar, Major depression in partial remission F3 2.4 and BMI 40.0-44.9, adult Z68.41 [facility] [address] [address] Mar, [facility] [address] [address] Mar, Acquired hypothyroidism E03.9 [facility] [address] [address] Mar, Pain in left knee M25.562 ; Other chroni c pain G89.29 and Gastroesophageal reflux disease without esophagitis K21.9 [facility] [address] [address] Jan, [facility] [address] [address] Jan, Acquired hypothyroidism E03.9 [facility] [address] [address] Jan, [facility] [address] [address] Jan, Acquired hypothyroidism E03.9 [facility] [address] [address] December, Major depressive disorder in full remiss ion, unspecified whether recurrent F32.5 [facility] [address] [address] Nov, Acquired hypothyroidism E03.9 [facility] [address] [address] Nov, Pure hypercholesterolemia E78.0 ; Periph eral edema R60.9 and Acquired hypothyroidism E03.9 [facility] [address] [address] Oct, Mild acid reflux K21.9 [facility] [address] [address] Sep, Major depressive disorder, single episod e, in partial remission F32.4 and Long-term use of high-risk medication Z79.899 [facility] [address] [address] Aug, Encounter for immunization Z23 [facility] [address] [address] Jul, [facility] [address] [address] Jun, Medicare annual wellness visit, initial Z00.00 ; BMI 40.0-44.9, adult Z68.41 and Encounter for immunization Z23 [facility] [address] [address] May, [facility] [address] [address] May, Encounter for immunization Z23 [facility] [address] [address] May, Major depression in partial remission F3 2.4 [facility] [address] [address] Apr, Hearing loss H91.90 ; Encounter for immu nization Z23 and Encounter for screening mammogram for breast cancer Z12.31 [facility] [address] [address] Mar, Acquired hypothyroidism E03.9 [facility] [address] [address] Jan, Acquired hypothyroidism E03.9 [facility] [address] [address] Jan, Acute midline low back pain without scia suraj M54.5 [facility] [address] [address] Jan, Peripheral edema R60.9 [facility] [address] [address] Jan, Major depression in partial remission F3 2.4 [facility] [address] [address] Jan, Localized edema R60.0 [facility] [address] [address] Nov, Pure hypercholesterolemia E78.0 [facility] [address] [address] Nov, Pure hypercholesterolemia E78.0 [facility] [address] [address] Nov, Peripheral edema R60.9 [facility] [address] [address] Oct, Major depression in partial remission F3 2.4 [facility] [address] [address] Aug, [facility] [address] [address] Aug, Elevated blood pressure reading R03.0 [facility] [address] [address] Aug, [facility] [address] [address] Jun, Major depression in partial remission F3 2.4 [facility] [address] [address] Apr, Major depressive disorder, recurrent epi sode, mild F33.0 [facility] [address] [address] Mar, Encounter for well woman exam with ilene winter gynecological exam Z01.419 and Breast cancer screening Z12.39 [facility] [address] [address] Jan, Hypothyroidism, unspecified type E03.9 [facility] [address] [address] Jan, Major depressive disorder, recurrent epi sode, mild F33.0 [facility] [address] [address] Jan, Abscess L02.91 [facility] [address] [address] 22 Jan, 2016 Furuncle L02.92 [facility] [address] [address] 16 Jan, 2016 Major depression in partial remission F3 2.4 [facility] [address] [address] 13 Jan, 2016 Major depressive disorder, recurrent epi sode, mild F33.0 [facility] [id number] [place] [address] December, Acute bacterial conjunctivit is of left eye H10.022 [facility] [address] [address] December, Major depressive disorder, recurrent epi sode, mild F33.0 [facility] [address] [address] Nov, [facility] [address] [address] Nov, Major depressive disorder, recurrent epi sode, mild F33.0 [facility] [address] [address] 18 Nov, 2015 Hearing loss H91.90 [facility] [address] [address] 17 Oct, 2015 Major depression in partial remission F3 2.4 [facility] [address] [address] 15 Oct, 2015 Pneumonia J18.9 [facility] [id number] [place] [address] 10 Oct, 2015 Influenza A J10.1 ; Fever, u nspecified R50.9 ; Conjunctivitis H10.9 and Cough R05 [facility] [address] [address] 10 Oct, 2015 Major depressive disorder, recurrent epi sode, severe, 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 [facility] [address] [address] Aug, [facility] [address] [address] Aug, Acquired hypothyroidism E03.9 and Pure h ypercholesterolemia E78.0 [facility] [address] [address] Aug, Major depressive disorder, recurrent epi sode, severe, 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 [facility] [address] [address] Jul, [facility] [address] [address] Jul, Major depressive disorder, recurrent epi sode, severe, 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 [facility] [address] [address] Jun, Major depressive disorder, recurrent epi sode, severe, 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 [facility] [address] [address] May, [address] [address] May, Major depressive disorder, recurrent epi sode, severe, 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 [facility] [address] [address] May, Major depressive disorder, recurrent epi sode, severe, 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 [facility] [address] [address] Apr, [facility] [address] [place] [address] Apr, Depressive disorder, not elsewhere class ified 311 and Unspecified psychosis 298.9 [facility] [address] [address] Apr, Depression 311 and Hard of hearing 389.9 [facility] [address] [address] 10 Apr, 2015 Schizoaffective disorder 295.70 [facility] [address] [address] 08 Apr, 2015 Major depressive disorder, recurrent epi sode, severe, specified as with psychotic behavior 296.34 [facility] [address] [address] Apr, Psychosis 298.9 and Depression 311 [facility] [address] [address] Apr, Depressive disorder, not elsewhere class ified 311 and Unspecified psychosis 298.9 [facility] [address] [address] Mar, Screening for cervical cancer V76.2 ; We ll woman exam with routine gynecological exam V72.31 ; Colon cancer screening V76.51 ; Breast cancer screening V76.10 ; Irritable bowel syndrome 564.1 and Psychosis 298.9 [facility] [address] [address] Mar, Psychosis 298.9 [facility] [address] [address] Mar, Unspecified psychosis 298.9 [facility] [address] [address] Nov, [facility] [address] [address] Nov, [facility] [address] [address] Oct, [facility] [address] [address] Oct, [facility] [address] [address] Jul, [facility] [address] [address] Jul, [facility] [address] [id number] [place] [address] May, [facility] [address] [facility] [id number] [place] [address] Apr, [facility] [address] [facility] [id number] [place] [address] Apr, [facility] [address] [facility] [id number] [place] [address] Apr, [facility] [address] [facility] [id number] [place] [address] Apr, [facility] [address] [facility] [id number] [place] [address] Apr, [facility] [address] [id number] [place] [address] Mar, [facility] [address] [id number] [place] [address] Mar, [facility] [address] [id number] [place] [address] Mar, [facility] [address] [id number] [place] [address] Mar, [facility] [address] [id number] [place] [address] Mar, [facility] [address] [id number] [place] [address] Mar, [facility] [address] [facility] [id number] [place] [address] Mar, [facility] [address] [id number] [place] [address] Mar, [facility] [address] [facility] [id number] [place] [address] Mar, [facility] [address] [id number] [place] [address] Mar, [facility] [address] [id number] [place] [address] Jan, [facility] [address] [id number] [place] [address] Jan, [facility] [address] [id number] [place] [address] December, [facility] [address] [id number] [place] [address] December, [facility] [address] [id number] [place] [address] Nov, [facility] [address] [id number] [place] [address] Nov, [facility] [address] [id number] [place] [address] Sep, [facility] [address] [id number] [place] [address] Sep, [facility] [address] [id number] [place] [address] Sep, [facility] [address] [id number] [place] [address] Sep, [facility] [address] [id number] [place] [address] Jun, [facility] [address] [id number] [place] [address] Jun, [facility] [address] [id number] [place] [address] Jun, [facility] [address] [id number] [place] [address] Jun, [facility] [address] [id number] [place] [address] May, [facility] [address] [id number] [place] [address] May, [facility] [address] [id number] [place] [address] Apr, [facility] [address] [id number] [place] [address] Mar, [facility] [address] [facility] [id number] [place] [address] Mar, [facility] [address] [id number] [place] [address] Mar, [facility] [address] [id number] [place] [address] Mar, [facility] [address] [id number] [place] [address] Mar, [facility] [address] [id number] [place] [address] Jan, [facility] [address] [id number] [place] [address] Jan, [facility] [address] [id number] [place] [address] Jan, [facility] [address] [id number] [place] [address] December, [facility] [address] [id number] [place] [address] Oct, [facility] [address] [id number] [place] [address] Oct, [facility] [address] [id number] [place] [address] Oct, [facility] [address] [id number] [place] [address] Oct, [facility] [address] [id number] [place] [address] Aug, [facility] [address] [id number] [place] [address] Jun, [facility] [address] [id number] [place] [address] 16 Jun, 2012 [facility] [address] [id number] [place] [address] Jun, [facility] [address] [id number] [place] [address] Jun, [facility] [address] [id number] [place] [address] May, [facility] [address] [id number] [place] [address] Apr, [facility] [address] [id number] [place] [address] Mar, [facility] [address] [id number] [place] [address] Jan, [facility] [address] [id number] [place] [address] Jan, [facility] [address] [id number] [place] [address] December, [facility] [id number] [place] [address] December, [facility] [address] [id number] [place] [address] December, [facility] [address] [id number] [place] [address] December, [facility] [address] [id number] [place] [address] Nov, [facility] [address] [id number] [place] [address] Oct, [facility] [address] [id number] [place] [address] Sep, [facility] [address] [id number] [place] [address] Sep, [facility] [address] [id number] [place] [address] Sep, [facility] [address] [id number] [place] [address] Sep, [facility] [address] [id number] [place] [address] Aug, [facility] [address] [id number] [place] [address] Jun, [facility] [address] [id number] [place] [address] May, [facility] [address] [id number] [place] [address] Mar, [facility] [id number] [place] [address] Jun, [facility] [id number] [place] [address] May, [facility] [address] [id number] [place] [address] May, IMMUNIZATIONS No Known Immunizations SOCIAL HISTORY Never Assessed REASON FOR VISIT PLAN OF CARE VITAL SIGNS Blood pressure systolic 116 mmHg 2013-09-29 Blood pressure diastolic 74 mmHg 2013-09-29 MEDICATIONS Unknown Medications RESULTS No Results PROCEDURES Procedure Date Ordered Result Body Site DRAIN/INJECT, JOINT/BURSA Sep 29, 2013 INSTRUCTIONS MEDICATIONS ADMINISTERED No Known Medications MEDICAL (GENERAL) HISTORY Type Description Date Medical History depression Medical History hypothryroidism Medical History hyperlipidemia Medical History trauma: Stroke - with L side faci al drooping Surgical History hysterectomy Surgical History cholecystectomy Surgical History gall bladder removal Hospitalization History surgeries Hospitalization History stroke
--- OUTSIDE RECORDS SUMMARY | 2020-02-21 11:45 | XMS REPORT ---
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892 Active 882353202 ALLERGIES No Information ENCOUNTERS Encounter Location Date Diagnosis [place] [address] [address] December, [place] [address] [address] Oct, [place] [address] [address] Sep, [place] [address] [address] Sep, [place] [address] [address] Sep, Exercise counseling Z71.82 [facility] [address] [address] 18 Sep, 2019 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 due to a coleman bstance or known physiological condition F28 and Falling R29.6 [facility] [address] [address] 13 Sep, 2019 [facility] [address] [place] [address] 12 Sep, 2019 Falling R29.6 [place] [address] [address] 06 Sep, 2019 [place] [address] [address] 05 Sep, 2019 Acquired hypothyroidism E03.9 and Fallin g R29.6 [place] [address] [address] Aug, Depression, major, 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 [place] [address] [address] May, Depression, major, 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 [place] [address] [address] May, Wound of left lower extremity, subsequen t encounter S81.802D [place] [address] [address] May, Wound of left lower extremity, subsequen t encounter S81.802D [place] [address] [address] May, Wound of left lower extremity, subsequen t encounter S81.802D [place] [address] [address] May, Wound of left lower extremity, subsequen t encounter S81.802D [place] [address] [address] May, [place] [address] [address] May, Peripheral edema R60.9 ; Decubitus ulcer of left leg, stage 2 L89.892 ; Dry skin dermatitis L85.3 ; Encounter for immunization Z23 and Breast cancer screening Z12.39 [place] [address] [address] Mar, [place] [address] [address] Jan, Depression, major, 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 an d Morbid obesity E66.01 [place] [address] [address] Jan, Encounter for Medicare annual wellness e xam Z00.00 ; Hyperlipidemia, unspecified hyperlipidemia type E78.5 ; Depression, major, 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 ; Gastroesophageal reflux disease without esophagitis K21.9 ; Acquired hypothyroidism E03.9 ; Hearing loss of both ears H91.93 ; Post menopausal syndrome N95.1 and Morbid obesity E66.01 [place] [address] [address] Jan, Hyperlipidemia, unspecified hyperlipidem ia type E78.5 and Morbid obesity E66.01 [place] [address] [address] Jan, [place] [address] [address] December, [place] [address] [address] December, [place] [address] [address] December, [place] [address] [address] December, Wound of left lower extremity, subsequen t encounter S81.802D [place] [address] [address] Nov, [facility] [address] [address] Nov, Blister of left lower extremity without infection, initial encounter S80.822A and Morbid obesity E66.01 [facility] [address] [place] [id number] [place] [address] Nov, [facility] [address] [address] Nov, [facility] [address] [address] Nov, [facility] [address] [address] Nov, [facility] [address] [address] Nov, [facility] [address] [address] Nov, [facility] [address] [address] Oct, [facility] [address] [address] Oct, Depression, major, 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 [facility] [address] [address] Oct, [facility] [address] [address] Oct, [facility] [address] [address] Oct, [facility] [address] [address] Oct, Morbid obesity E66.01 and Pressure injur y of left buttock, stage 2 L89.322 [facility] [address] [address] Oct, [facility] [address] [address] Oct, [place] [address] [address] Oct, [place] [address] [address] 06 Oct, 2018 Pressure injury of other site, stage 2 L 89.892 and Morbid obesity E66.01 [place] [address] [address] Sep, Cellulitis of other specified site L03.8 18 and BMI 40.0-44.9, adult Z68.41 [place] [address] [address] 13 Sep, 2018 Scab R23.4 and BMI 40.0-44.9, adult Z68. 41 [place] [address] [address] Jun, Major depression 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 [place] [address] [address] 27 Apr, 2018 [place] [address] [address] 24 Apr, 2018 Encounter for breast cancer screening ot her than mammogram Z12.39 ; Encounter for immunization Z23 and Colon cancer screening Z12.[address] [address] 30 Mar, 2018 Major depression in partial remission F3 2.4 and BMI 40.0-44.9, adult Z68.41 [place] [address] [address] Mar, [address] [address] Mar, Acquired hypothyroidism E03.9 [place] [address] [address] Mar, Pain in left knee M25.562 ; Other chroni c pain G89.29 and Gastroesophageal reflux disease without esophagitis K21.9 [place] [address] [place] [id number] [place] [address] Jan, [place] [address] [address] Jan, Acquired hypothyroidism E03.9 [place] [address] [address] Jan, [place] [address] [address] Jan, Acquired hypothyroidism E03.9 [place] [address] [address] December, Major depressive disorder in full remiss ion, unspecified whether recurrent F32.5 [place] [address] [address] Nov, Acquired hypothyroidism E03.9 [place] [address] [address] Nov, Pure hypercholesterolemia E78.0 ; Periph eral edema R60.9 and Acquired hypothyroidism E03.9 [place] [address] [address] Oct, Mild acid reflux K21.9 [place] [address] [address] 08 Sep, 2017 Major depressive disorder, single episod e, in partial remission F32.4 and Long-term use of high-risk medication Z79.899 [place] [address] [place] [id number] [place] [address] Aug, Encounter for immunization Z23 [place] [address] [address] Jul, [place] [address] [address] Jun, Medicare annual wellness visit, initial Z00.00 ; BMI 40.0-44.9, adult Z68.41 and Encounter for immunization Z23 [place] [address] [address] 10 May, 2017 [facility] [address] [address] May, Encounter for immunization Z23 [facility] [address] [address] 10 May, 2017 Major depression in partial remission F3 2.4 [facility] [address] [address] 11 Apr, 2017 Hearing loss H91.90 ; Encounter for immu nization Z23 and Encounter for screening mammogram for breast cancer Z12.31 [place] [address] [place] [address] Mar, Acquired hypothyroidism E03.9 [place] [address] [address] Jan, Acquired hypothyroidism E03.9 [place] [address] [address] Jan, Acute midline low back pain without scia suraj M54.5 [place] [address] [address] Jan, Peripheral edema R60.9 [place] [address] [address] Jan, Major depression in partial remission F3 2.4 [place] [address] [address] Jan, Localized edema R60.0 [facility] [address] [address] Nov, Pure hypercholesterolemia E78.0 [place] [address] [address] Nov, Pure hypercholesterolemia E78.0 [facility] [address] [address] Nov, Peripheral edema R60.9 [facility] [address] [address] Oct, Major depression in partial remission F3 2.4 [place] [address] [address] Aug, [place] [address] [address] Aug, Elevated blood pressure reading R03.0 [place] [address] [address] Aug, [place] [address] [address] Jun, Major depression in partial remission F3 2.4 [place] [address] [address] Apr, Major depressive disorder, recurrent epi sode, mild F33.0 [place] [address] [address] Mar, Encounter for well woman exam with ilene winter gynecological exam Z01.419 and Breast cancer screening Z12.39 [place] [address] [address] Jan, Hypothyroidism, unspecified type E03.9 [place] [address] [address] Jan, Major depressive disorder, recurrent epi sode, mild F33.0 [place] [address] [address] Jan, Abscess L02.91 [place] [address] [address] Jan, Furuncle L02.92 [place] [address] [address] Jan, Major depression in partial remission F3 2.4 [place] [address] [address] Jan, Major depressive disorder, recurrent epi sode, mild F33.0 [facility] [address] [place] [id number] [address] December, Acute bacterial conjunctivit is of left eye H10.022 [place] [address] [address] December, Major depressive disorder, recurrent epi sode, mild F33.0 [place] [address] [address] Nov, [place] [address] [address] Nov, Major depressive disorder, recurrent epi sode, mild F33.0 [place] [address] [address] Nov, Hearing loss H91.90 [place] [address] [address] Oct, Major depression in partial remission F3 2.4 [place] [address] [address] Oct, Pneumonia J18.9 [facility] [address] [place] [address] Oct, Influenza A J10.1 ; Fever, u nspecified R50.9 ; Conjunctivitis H10.9 and Cough R05 [place] [address] [address] Oct, Major depressive disorder, recurrent epi sode, severe, 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 [place] [address] [address] Aug, [place] [address] [address] Aug, Acquired hypothyroidism E03.9 and Pure h ypercholesterolemia E78.0 [place] [address] [address] Aug, Major depressive disorder, recurrent epi sode, severe, 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 [facility] [address] [address] Jul, [facility] [address] [place] [id number] Jul, Major depressive disorder, recurrent epi sode, severe, 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 [place] [address] [address] Jun, Major depressive disorder, recurrent epi sode, severe, 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 [place] [address] [address] May, [address] [address] May, Major depressive disorder, recurrent epi sode, severe, 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 [place] [address] [address] May, Major depressive disorder, recurrent epi sode, severe, 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 [place] [address] [address] Apr, [address] [address] Apr, Depressive disorder, not elsewhere class ified 311 and Unspecified psychosis 298.[address] [address] Apr, Depression 311 and Hard of hearing 389.[address] [address] Apr, Schizoaffective disorder 295.[address] [address] Apr, Major depressive disorder, recurrent epi sode, severe, specified as with psychotic behavior 296.[address] [address] Apr, Psychosis 298.9 and Depression 311 [facility] [address] [place] [id number] [place] [address] Apr, Depressive disorder, not elsewhere class ified 311 and Unspecified psychosis 298.9 [facility] [address] [place] [id number] [place] [address] Mar, Screening for cervical cancer V76.2 ; We ll woman exam with routine gynecological exam V72.31 ; Colon cancer screening V76.51 ; Breast cancer screening V76.10 ; Irritable bowel syndrome 564.1 and Psychosis 298.9 [facility] [address] [address] Mar, Psychosis 298.9 [facility] [address] [address] Mar, Unspecified psychosis 298.9 [facility] [address] [address] Nov, [facility] [address] [address] Nov, [facility] [address] [address] Oct, [facility] [address] [address] Oct, [facility] [address] [address] Jul, [facility] [address] [address] Jul, [facility] [address] [address] May, [facility] [address] [address] Apr, [facility] [address] [address] Apr, [facility] [address] [address] 05 Apr, 2014 [facility] [address] [id number] [place] [address] Apr, [facility] [address] [facility] [id number] [place] [address] Apr, [facility] [address] [facility] [id number] [place] [address] Mar, [facility] [address] [id number] [facility] [place] [address] Mar, [facility] [address] [facility] [id number] [place] [address] Mar, [facility] [address] [id number] [place] [address] Mar, [facility] [address] [id number] [place] [address] Mar, [facility] [address] [id number] [place] [address] Mar, [facility] [address] [id number] [place] [address] Mar, [facility] [address] [id number] [place] [address] Mar, [facility] [address] [id number] [place] [address] Mar, [facility] [address] [id number] [place] [address] Mar, [facility] [address] [id number] [place] [address] Jan, [facility] [address] [facility] [id number] [place] [address] Jan, [facility] [address] [id number] [place] [address] December, [facility] [address] [id number] [place] [address] December, [facility] [address] [id number] [place] [address] Nov, [facility] [address] [facility] [id number] [facility] [place] [address] Nov, [facility] [address] [id number] [facility] [place] [address] Sep, [facility] [address] [id number] [facility] [place] [address] Sep, [facility] [address] [id number] [facility] [place] [address] Sep, [facility] [address] [id number] [facility] [place] [address] Sep, [facility] [address] [id number] [place] [address] Jun, [facility] [address] [id number] [place] [address] Jun, [facility] [address] [id number] [place] [address] Jun, [facility] [address] [id number] [place] [address] Jun, [facility] [address] [id number] [place] [address] May, [facility] [address] [id number] [place] [address] May, [facility] [address] [id number] [place] [address] Apr, [facility] [address] [id number] [facility] [place] [address] Mar, [facility] [address] [id number] [place] [address] Mar, [facility] [address] [id number] [place] [address] Mar, [facility] [address] [id number] [place] [address] Mar, [facility] [address] [id number] [place] [address] 05 Mar, 2013 [facility] [address] [id number] [place] [address] Jan, [facility] [address] [id number] [place] [address] Jan, [facility] [address] [id number] [place] [address] Jan, [facility] [address] [id number] [place] [address] December, [facility] [address] [id number] [place] [address] Oct, [facility] [address] [id number] [place] [address] Oct, [facility] [address] [id number] [place] [address] Oct, [facility] [address] [id number] [place] [address] Oct, [facility] [address] [id number] [place] [address] Aug, [facility] [address] [id number] [place] [address] 16 Jun, 2012 [facility] [address] [id number] [place] [address] 16 Jun, 2012 [facility] [address] [id number] [place] [address] 14 Jun, 2012 [facility] [address] [id number] [place] [address] 14 Jun, 2012 [facility] [address] [id number] [place] [address] 05 May, 2012 [facility] [address] [id number] [place] [address] 10 Apr, 2012 [facility] [address] [id number] [place] [address] Mar, [facility] [address] [id number] [place] [address] Jan, [facility] [address] [id number] [place] [address] Jan, [facility] [address] [id number] [place] [address] December, [facility] [address] [id number] [place] [address] December, [facility] [address] [id number] [place] [address] December, [facility] [address] [id number] [place] [address] December, [facility] [address] [id number] [place] [address] Nov, [facility] [address] [id number] [place] [address] Oct, [facility] [address] [id number] [place] [address] Sep, [facility] [address] [id number] [place] [address] Sep, [facility] [address] [id number] [place] [address] Sep, [facility] [address] [id number] [place] [address] Sep, [facility] [address] [id number] [place] [address] Aug, [facility] [address] [id number] [place] [address] Jun, [facility] [address] [id number] [place] [address] May, [facility] [address] [id number] [place] [address] Mar, [facility] [address] [id number] [place] [address] Jun, [facility] [address] [id number] [place] [address] May, [facility] [address] [id number] [place] [address] May, IMMUNIZATIONS No Known Immunizations SOCIAL HISTORY [...]
--- OUTSIDE RECORDS SUMMARY | 2020-02-21 11:45 | XMS REPORT ---
Author Author Tarik POTTS Organization [facility] Address [address] [place] [address] Care Team Providers Care Manager Grant Name Role Phone ROMA POTTS Unavailable PROBLEMS Type Condition ICD9-CM Code [id number] Code Onset Dates Condition S tatus SNOMED Code Problem Hearing loss of both ears H91.93 Acti ve 84139810 Problem Acquired hypothyroidism E03.9 Active 604458687 Problem Pure hypercholesterolemia E78.0 Acti ve 687918928 Problem Post menopausal syndrome N95.1 Activ e 645766784 Problem Osteopenia after menopause M81.0 Act mode 111721024 Problem Decubitus ulcer of left leg, stage 2 L89.892 Active 276875480 Problem Gastroesophageal reflux disease without esophagitis K21.9 Active 368642127 Problem Depression, major, 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 Active 13860124 Problem Pressure injury of left buttock, stage 2 L89.322 Active 717715995 Problem Hyperlipidemia, unspecified hyperlipidemia type E7 8.5 Active 43802454 ALLERGIES No Information ENCOUNTERS Encounter Location Date Diagnosis [place] [address] [address] Sep, [place] [address] [address] Aug, [place] [address] [address] May, Depression, major, 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 [place] [address] [address] May, Wound of left lower extremity, subsequen t encounter S81.802D [place] [address] [address] May, Wound of left lower extremity, subsequen t encounter S81.802D [place] [address] [address] 14 May, 2019 Wound of left lower extremity, subsequen t encounter S81.802D [place] [address] [address] 11 May, 2019 Wound of left lower extremity, subsequen t encounter S81.802D [place] [address] [address] May, [place] [address] [address] May, Peripheral edema R60.9 ; Decubitus ulcer of left leg, stage 2 L89.892 ; Dry skin dermatitis L85.3 ; Encounter for immunization Z23 and Breast cancer screening Z12.39 [place] [address] [address] Mar, [place] [address] [address] Jan, Depression, major, 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 an d Morbid obesity E66.01 [place] [address] [address] Jan, Encounter for Medicare annual wellness e xam Z00.00 ; Hyperlipidemia, unspecified hyperlipidemia type E78.5 ; Depression, major, 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 ; Gastroesophageal reflux disease without esophagitis K21.9 ; Acquired hypothyroidism E03.9 ; Hearing loss of both ears H91.93 ; Post menopausal syndrome N95.1 and Morbid obesity E66.01 [place] [address] [address] Jan, Hyperlipidemia, unspecified hyperlipidem ia type E78.5 and Morbid obesity E66.01 [place] [address] [address] Jan, [place] [address] [address] December, [facility] [address] [place] [id number] [place] [address] December, [facility] [address] [id number] [place] [address] December, [facility] [id number] [place] [address] December, Wound of left lower extremity, subsequen t encounter S81.802D [facility] [address] [id number] [place] [address] Nov, [facility] [address] [address] Nov, Blister of left lower extremity without infection, initial encounter S80.822A and Morbid obesity E66.01 [facility] [address] [place] [address] [id number] [place] [address] Nov, [facility] [address] [id number] [place] [address] Nov, [facility] [id number] [place] [address] Nov, [facility] [id number] [place] [address] Nov, [facility] [id number] [place] [address] Nov, [facility] [id number] [place] [address] Nov, [facility] [id number] [place] [address] Oct, [facility] [id number] [place] [address] Oct, Depression, major, 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 [facility] [id number] [place] [address] Oct, [facility] [id number] [place] [address] Oct, [place] [address] [address] Oct, [place] [address] [address] Oct, Morbid obesity E66.01 and Pressure injur y of left buttock, stage 2 L89.322 [place] [address] [address] Oct, [place] [address] [address] Oct, [place] [address] [address] Oct, [place] [address] [address] Oct, Pressure injury of other site, stage 2 L 89.892 and Morbid obesity E66.01 [place] [address] [address] Sep, Cellulitis of other specified site L03.8 18 and BMI 40.0-44.9, adult Z68.41 [place] [address] [address] Sep, Scab R23.4 and BMI 40.0-44.9, adult Z68. 41 [place] [address] [address] Jun, Major depression 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 [place] [address] [address] Apr, [place] [address] [address] Apr, Encounter for breast cancer screening ot her than mammogram Z12.39 ; Encounter for immunization Z23 and Colon cancer screening Z12.11 [place] [address] [address] Mar, Major depression in partial remission F3 2.4 and BMI 40.0-44.9, adult Z68.41 [place] [address] [address] Mar, [place] [address] [address] Mar, Acquired hypothyroidism E03.9 [place] [address] [address] Mar, Pain in left knee M25.562 ; Other chroni c pain G89.29 and Gastroesophageal reflux disease without esophagitis K21.9 [place] [address] [address] Jan, [place] [address] [address] Jan, Acquired hypothyroidism E03.9 [place] [address] [address] Jan, [place] [address] [address] Jan, Acquired hypothyroidism E03.9 [place] [address] [address] December, Major depressive disorder in full remiss ion, unspecified whether recurrent F32.5 [place] [address] [address] Nov, Acquired hypothyroidism E03.9 [place] [address] [address] Nov, Pure hypercholesterolemia E78.0 ; Periph eral edema R60.9 and Acquired hypothyroidism E03.9 [place] [address] [address] Oct, Mild acid reflux K21.9 [facility] [address] [address] 08 Sep, 2017 Major depressive disorder, single episod e, in partial remission F32.4 and Long-term use of high-risk medication Z79.899 [place] [address] [address] Aug, Encounter for immunization Z23 [place] [address] [address] Jul, [place] [address] [address] Jun, Medicare annual wellness visit, initial Z00.00 ; BMI 40.0-44.9, adult Z68.41 and Encounter for immunization Z23 [place] [address] [address] May, [place] [address] [address] May, Encounter for immunization Z23 [place] [address] [address] May, Major depression in partial remission F3 2.4 [place] [address] [address] Apr, Hearing loss H91.90 ; Encounter for immu nization Z23 and Encounter for screening mammogram for breast cancer Z12.31 [place] [address] [address] Mar, Acquired hypothyroidism E03.9 [place] [address] [address] Jan, Acquired hypothyroidism E03.9 [place] [address] [address] Jan, Acute midline low back pain without scia suraj M54.5 [place] [address] [address] Jan, Peripheral edema R60.9 [place] [address] [address] Jan, Major depression in partial remission F3 2.4 [place] [address] [address] Jan, Localized edema R60.0 [place] [address] [address] Nov, Pure hypercholesterolemia E78.0 [place] [address] [address] Nov, Pure hypercholesterolemia E78.0 [place] [address] [address] Nov, Peripheral edema R60.9 [place] [address] [address] Oct, Major depression in partial remission F3 2.4 [place] [address] [address] Aug, [place] [address] [address] Aug, Elevated blood pressure reading R03.0 [place] [address] [address] Aug, [place] [address] [address] Jun, Major depression in partial remission F3 2.4 [place] [address] [address] Apr, Major depressive disorder, recurrent epi sode, mild F33.0 [place] [address] [address] Mar, Encounter for well woman exam with ilene winter gynecological exam Z01.419 and Breast cancer screening Z12.39 [place] [address] [address] Jan, Hypothyroidism, unspecified type E03.9 [place] [address] [address] Jan, Major depressive disorder, recurrent epi sode, mild F33.0 [place] [address] [address] 30 Jan, 2016 Abscess L02.91 [place] [address] [address] 22 Jan, 2016 Furuncle L02.92 [place] [address] [address] 16 Jan, 2016 Major depression in partial remission F3 2.4 [place] [address] [address] 13 Jan, 2016 Major depressive disorder, recurrent epi sode, mild F33.0 [facility] [address] [place] [id number] [place] [address] December, Acute bacterial conjunctivit is of left eye H10.022 [place] [address] [address] December, Major depressive disorder, recurrent epi sode, mild F33.0 [place] [address] [address] Nov, [place] [address] [address] Nov, Major depressive disorder, recurrent epi sode, mild F33.0 [place] [address] [address] Nov, Hearing loss H91.90 [place] [address] [address] Oct, Major depression in partial remission F3 2.4 [place] [address] [address] 15 Oct, 2015 Pneumonia J18.9 [facility] [address] [place] [id number] [place] [address] 10 Oct, 2015 Influenza A J10.1 ; Fever, u nspecified R50.9 ; Conjunctivitis H10.9 and Cough R05 [place] [address] [address] Oct, Major depressive disorder, recurrent epi sode, severe, 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 [place] [address] [address] Aug, [place] [address] [address] Aug, Acquired hypothyroidism E03.9 and Pure h ypercholesterolemia E78.0 [place] [address] [address] Aug, Major depressive disorder, recurrent epi sode, severe, 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 [place] [address] [address] Jul, [place] [address] [address] Jul, Major depressive disorder, recurrent epi sode, severe, 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 [place] [address] [address] Jun, Major depressive disorder, recurrent epi sode, severe, 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 [place] [address] [address] May, [place] [address] [address] May, Major depressive disorder, recurrent epi sode, severe, 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 [place] [address] [address] May, Major depressive disorder, recurrent epi sode, severe, 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 [place] [address] [address] Apr, [place] [address] [address] Apr, Depressive disorder, not elsewhere class ified 311 and Unspecified psychosis 298.9 [place] [address] [address] Apr, Depression 311 and Hard of hearing 389.9 [facility] [address] [address] 10 Apr, 2015 Schizoaffective disorder 295.70 [facility] [address] [address] 08 Apr, 2015 Major depressive disorder, recurrent epi sode, severe, specified as with psychotic behavior 296.34 [facility] [address] [address] Apr, Psychosis 298.9 and Depression 311 [facility] [address] [address] Apr, Depressive disorder, not elsewhere class ified 311 and Unspecified psychosis 298.9 [facility] [address] [address] Mar, Screening for cervical cancer V76.2 ; We ll woman exam with routine gynecological exam V72.31 ; Colon cancer screening V76.51 ; Breast cancer screening V76.10 ; Irritable bowel syndrome 564.1 and Psychosis 298.9 [facility] [address] [address] Mar, Psychosis 298.9 [facility] [address] [address] Mar, Unspecified psychosis 298.9 [facility] [address] [address] Nov, [facility] [address] [address] Nov, [facility] [address] [address] Oct, [facility] [address] [address] Oct, [facility] [address] [address] Jul, [facility] [address] [address] Jul, [facility] [place] [facility] [address] [id number] [place] [address] May, [facility] [place] [facility] [address] [facility] [id number] [place] [address] Apr, [facility] [place] [facility] [address] [id number] [place] [address] Apr, [facility] [place] [facility] [address] [facility] [id number] [place] [address] Apr, [facility] [place] [facility] [address] [facility] [id number] [place] [address] Apr, [facility] [place] [facility] [address] [facility] [id number] [place] [address] Apr, [facility] [place] [facility] [address] [id number] [place] [address] Mar, [facility] [place] [facility] [address] [id number] [place] [address] Mar, [facility] [place] [facility] [address] [facility] [id number] [place] [address] Mar, [facility] [place] [facility] [address] [id number] [place] [address] Mar, [facility] [place] [facility] [address] [id number] [place] [address] Mar, [facility] [place] [facility] [address] [id number] [place] [address] Mar, [facility] [place] [facility] [address] [facility] [id number] [place] [address] Mar, [facility] [place] [facility] [address] [id number] [place] [address] Mar, [facility] [place] [facility] [address] [facility] [id number] [place] [address] Mar, [facility] [place] [facility] [address] [id number] [place] [address] Mar, [facility] [place] [facility] [address] [id number] [place] [address] 14 Jan, 2014 [facility] [place] [facility] [address] [id number] [place] [address] 14 Jan, 2014 [facility] [place] [facility] [address] [id number] [place] [address] December, [facility] [place] [facility] [address] [id number] [place] [address] December, [facility] [place] [facility] [address] [id number] [place] [address] Nov, [facility] [place] [facility] [address] [id number] [place] [address] Nov, [facility] [place] [facility] [address] [id number] [place] [address] Sep, [facility] [place] [facility] [address] [id number] [place] [address] Sep, [facility] [place] [facility] [address] [id number] [place] [address] Sep, [facility] [place] [facility] [address] [id number] [place] [address] Sep, [facility] [place] [facility] [address] [id number] [place] [address] Jun, [facility] [place] [facility] [address] [id number] [place] [address] Jun, [facility] [place] [facility] [address] [id number] [place] [address] Jun, [facility] [place] [facility] [address] [id number] [place] [address] Jun, [facility] [place] [facility] [address] [id number] [place] [address] May, [facility] [place] [facility] [address] [id number] [place] [address] 16 May, 2013 [facility] [place] [facility] [address] [id number] [place] [address] Apr, [facility] [place] [facility] [address] [facility] [id number] [place] [address] Mar, [facility] [place] [facility] [address] [facility] [id number] [place] [address] Mar, [facility] [place] [facility] [address] [id number] [place] [address] Mar, [facility] [place] [facility] [address] [id number] [place] [address] Mar, [facility] [place] [facility] [address] [facility] [id number] [place] [address] Mar, [facility] [place] [facility] [address] [id number] [place] [address] Jan, [facility] [place] [facility] [address] [id number] [place] [address] Jan, [facility] [place] [facility] [address] [id number] [place] [address] Jan, [facility] [place] [facility] [address] [id number] [place] [address] December, [facility] [place] [facility] [address] [id number] [place] [address] Oct, [facility] [place] [facility] [address] [id number] [place] [address] Oct, [facility] [place] [facility] [address] [id number] [place] [address] Oct, [facility] [place] [facility] [address] [id number] [place] [address] Oct, [facility] [place] [facility] [address] [id number] [place] [address] Aug, [facility] [place] [facility] [address] [id number] [place] [address] Jun, [facility] [place] [facility] [address] [id number] [place] [address] Jun, [facility] [place] [facility] [address] [id number] [place] [address] Jun, [facility] [place] [facility] [address] [id number] [place] [address] Jun, [facility] [place] [facility] [address] [id number] [place] [address] May, [facility] [place] [facility] [address] [id number] [place] [address] Apr, [facility] [place] [facility] [address] [id number] [place] [address] Mar, [facility] [place] [facility] [address] [id number] [place] [address] Jan, [facility] [place] [facility] [id number] [place] [address] Jan, [facility] [place] [facility] [id number] [place] [address] December, [facility] [place] [facility] [id number] [place] [address] December, [facility] [place] [facility] [address] [id number] [place] [address] December, [facility] [place] [facility] [id number] [place] [address] December, [facility] [place] [facility] [address] [id number] [place] [address] Nov, [facility] [place] [facility] [id number] [place] [address] Oct, [facility] [place] [facility] [address] [id number] [place] [address] Sep, [facility] [place] [facility] [id number] [place] [address] Sep, [facility] [place] [facility] [id number] [place] [address] Sep, [facility] [place] [facility] [id number] [place] [address] Sep, [facility] [address] [id number] [place] [address] Aug, [facility] [address] [id number] [place] [address] Jun, [facility] [address] [id number] [place] [address] May, [facility] [id number] [place] [address] Mar, [facility] [address] [id number] [place] [address] Jun, [facility] [id number] [place] [address] May, [facility] [address] [id number] [place] [address] May, IMMUNIZATIONS No Known Immunizations SOCIAL HISTORY [...]
--- OUTSIDE RECORDS SUMMARY | 2020-02-21 11:45 | XMS REPORT ---
Author Author Tarik POTTS Organization [facility] [place] Address [address] [place] [address] Care Team Providers Care Answering Service Operator Name Role Phone RUTH POTTS Unavailable PROBLEMS Type Condition ICD9-CM Code AAG56-LP Code Onset Dates Condition S tatus SNOMED Code Problem Osteopenia after menopause M81.0 Act mode 310825471 Problem Hearing loss of both ears H91.93 Acti ve 99693474 Problem Acquired hypothyroidism E03.9 Active 803135284 Problem Hyperlipidemia, unspecified hyperlipidemia type E7 8.5 Active 79778310 Problem Post menopausal syndrome N95.1 Activ e 363556968 Problem Pure hypercholesterolemia E78.0 Acti ve 978391410 Problem Gastroesophageal reflux disease without esophagitis K21.9 Active 783225215 Problem Depression, major, 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 [id number] [address] [place] [address] May, [place] [address] [facility] [id number] [address] [place] [address] May, [place] [address] [place] [id number] [address] [place] [address] Mar, [place] [address] [facility] [id number] [address] [place] [address] Jan, Depression, major, in remiss ion F32.5 and Morbid obesity E66.01 [place] [address] [facility] [id number] [address] [place] [address] Jan, Encounter for Medicare annua l wellness exam Z00.00 ; Hyperlipidemia, unspecified hyperlipidemia type E78.5 ; Depression, major, 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 ; Gastroesophageal reflux disease without esophagitis K21.9 ; Acquired hypothyroidism E03.9 ; Hearing loss of both ears H91.93 ; Post menopausal syndrome N95.1 and Morbid obesity E66.01 [facility] [place] [address] [id number] [address] [place] [address] Jan, Hyperlipidemia, unspecified hyperlipidemia type E78.5 and Morbid obesity E66.01 [facility] [place] [address] [id number] [address] [place] [address] Jan, [facility] [place] [address] [id number] [address] [place] [address] December, [facility] [place] [address] [id number] [address] [place] [address] December, [facility] [place] [address] [id number] [address] [place] [address] December, [facility] [place] [address] [id number] [address] [place] [address] December, Wound of left lower extremit y, subsequent encounter S81.802D [facility] [place] [address] [id number] [address] [place] [address] Nov, [facility] [place] [address] [id number] [address] [place] [address] Nov, Blister of left lower extrem ity without infection, initial encounter S80.822A and Morbid obesity E66.01 [facility] [place] [address] [id number] [address] [place] [address] Nov, [facility] [place] [address] [id number] [address] [place] [address] Nov, [facility] [place] [address] [id number] [address] [place] [address] Nov, [facility] [place] [address] [id number] [address] [place] [address] Nov, [facility] [place] [address] [id number] [address] [place] [address] Nov, [facility] [place] [address] [id number] [address] [place] [address] Nov, [facility] [place] [address] [id number] [address] [place] [address] Oct, [facility] [place] [address] [facility] [id number] [address] [place] [address] Oct, Depression, major, in remiss ion F32.5 [facility] [place] [address] [id number] [address] [place] [address] Oct, [facility] [place] [address] [id number] [address] [place] [address] Oct, [facility] [place] [address] [facility] [id number] [address] [place] [address] Oct, [facility] [place] [address] [facility] [id number] [address] [place] [address] Oct, Morbid obesity E66.01 and Pr essure injury of left buttock, stage 2 L89.322 [facility] [place] [address] [id number] [address] [place] [address] Oct, [facility] [place] [address] [facility] [id number] [address] [place] [address] Oct, [facility] [place] [address] [facility] [id number] [address] [place] [address] Oct, [facility] [place] [address] [facility] [id number] [address] [place] [address] Oct, Pressure injury of other sit e, stage 2 L89.892 and Morbid obesity E66.01 [facility] [place] [address] [id number] [address] [place] [address] Sep, Cellulitis of other specifie d site L03.818 and BMI 40.0-44.9, adult Z68.41 [place] [address] [facility] [id number] [address] [place] [address] 13 Sep, 2018 Scab R23.4 and BMI 40.0-44.9 , adult Z68.41 [facility] [place] [address] [facility] [id number] [address] [place] [address] Jun, Major depression in remissio n F32.5 [facility] [place] [address] [facility] [id number] [address] [place] [address] Apr, [facility] [place] [address] [facility] [id number] [address] [place] [address] Apr, Encounter for breast cancer screening other than mammogram Z12.39 ; Encounter for immunization Z23 and Colon cancer screening Z12.11 [place] [address] [facility] [id number] [address] [place] [address] Mar, Major depression in partial remission F32.4 and BMI 40.0-44.9, adult Z68.41 [facility] [place] [address] [facility] [id number] [address] [place] [address] Mar, [place] [address] [facility] [id number] [address] [place] [address] Mar, Acquired hypothyroidism E03. 9 [facility] [place] [address] [facility] [id number] [address] [place] [address] Mar, Pain in left knee M25.562 ; Other chronic pain G89.29 and Gastroesophageal reflux disease without esophagitis K21.9 [facility] [place] [address] [facility] [id number] [address] [place] [address] Jan, [facility] [place] [address] [facility] [id number] [address] [place] [address] Jan, Acquired hypothyroidism E03. 9 [facility] [place] [address] [facility] [id number] [address] [place] [address] Jan, [facility] [place] [address] [facility] [id number] [address] [place] [address] Jan, Acquired hypothyroidism E03. 9 [facility] [place] [address] [facility] [id number] [address] [place] [address] December, Major depressive disorder in full remission, unspecified whether recurrent F32.5 [facility] [place] [address] [id number] [address] [place] [address] Nov, Acquired hypothyroidism E03. 9 [facility] [place] [address] [facility] [id number] [address] [place] [address] Nov, Pure hypercholesterolemia E7 8.0 ; Peripheral edema R60.9 and Acquired hypothyroidism E03.9 [place] [address] [facility] [id number] [address] [place] [address] Oct, Mild acid reflux K21.9 [facility] [place] [address] [facility] [id number] [address] [place] [address] Sep, Major depressive disorder, s glenny episode, in partial remission F32.4 and Long-term use of high-risk medication Z79.899 [place] [address] [facility] [id number] [address] [place] [address] Aug, Encounter for immunization Z 23 [place] [address] [facility] [id number] [address] [place] [address] Jul, [place] [address] [facility] [id number] [address] [place] [address] Jun, Medicare annual wellness vis it, initial Z00.00 ; BMI 40.0-44.9, adult Z68.41 and Encounter for immunization Z23 [facility] [place] [address] [facility] [id number] [address] [place] [address] May, [place] [address] [facility] [id number] [address] [place] [address] May, Encounter for immunization Z 23 [facility] [place] [address] [facility] [id number] [address] [place] [address] May, Major depression in partial remission F32.4 [facility] [place] [address] [facility] [id number] [address] [place] [address] Apr, Hearing loss H91.90 ; Encoun ter for immunization Z23 and Encounter for screening mammogram for breast cancer Z12.31 [facility] [place] [address] [facility] [id number] [address] [place] [address] Mar, Acquired hypothyroidism E03. 9 [facility] [place] [address] [facility] [id number] [address] [place] [address] Jan, Acquired hypothyroidism E03. 9 [facility] [place] [address] [facility] [id number] [address] [place] [address] Jan, Acute midline low back pain without sciatica M54.5 [place] [address] [facility] [id number] [address] [place] [address] Jan, Peripheral edema R60.9 [place] [address] [facility] [id number] [address] [place] [address] Jan, Major depression in partial remission F32.4 [facility] [place] [address] [facility] [id number] [address] [place] [address] Jan, Localized edema R60.0 [place] [address] [facility] [id number] [address] [place] [address] Nov, Pure hypercholesterolemia E7 8.0 [place] [address] [facility] [id number] [address] [place] [address] Nov, Pure hypercholesterolemia E7 8.0 [facility] [place] [address] [facility] [id number] [address] [place] [address] Nov, Peripheral edema R60.9 [facility] [place] [address] [facility] [id number] [address] [place] [address] Oct, Major depression in partial remission F32.4 [facility] [place] [address] [facility] [id number] [address] [place] [address] Aug, [facility] [place] [address] [facility] [id number] [address] [place] [address] Aug, Elevated blood pressure read ing R03.0 [facility] [place] [address] [id number] [address] [place] [address] Aug, [facility] [place] [address] [id number] [address] [place] [address] Jun, Major depression in partial remission F32.4 [facility] [place] [address] [id number] [address] [place] [address] Apr, Major depressive disorder, r ecurrent episode, mild F33.0 [facility] [place] [address] [facility] [id number] [address] [place] [address] Mar, Encounter for well woman reta rios with routine gynecological exam Z01.419 and Breast cancer screening Z12.39 [place] [address] [facility] [id number] [address] [place] [address] Jan, Hypothyroidism, unspecified type E03.9 [facility] [place] [address] [id number] [address] [place] [address] Jan, Major depressive disorder, r ecurrent episode, mild F33.0 [facility] [place] [address] [facility] [id number] [address] [place] [address] 30 Jan, 2016 Abscess L02.91 [place] [address] [facility] [id number] [address] [place] [address] Jan, Furuncle L02.92 [place] [address] [facility] [id number] [address] [place] [address] 16 Jan, 2016 Major depression in partial remission F32.4 [facility] [place] [address] [id number] [address] [place] [address] Jan, Major depressive disorder, r ecurrent episode, mild F33.0 [facility] [address] [id number] [address] [place] [address] December, Acute bacterial conjunctivit is of left eye H10.022 [place] [address] [address] December, Major depressive disorder, r ecurrent episode, mild F33.0 [facility] [place] [address] [address] Nov, [place] [address] [address] Nov, Major depressive disorder, r ecurrent episode, mild F33.0 [place] [address] [address] Nov, Hearing loss H91.90 [place] [address] [address] Oct, Major depression in partial remission F32.4 [place] [address] [address] Oct, Pneumonia J18.9 [facility] [address] [address] Oct, Influenza A J10.1 ; Fever, u nspecified R50.9 ; Conjunctivitis H10.9 and Cough R05 [place] [address] [address] Oct, Major depressive disorder, r ecurrent episode, severe, 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 [place] [address] [address] Aug, [place] [address] [address] Aug, Acquired hypothyroidism E03. 9 and Pure hypercholesterolemia E78.0 [place] [address] [address] Aug, Major depressive disorder, r ecurrent episode, severe, 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 [place] [address] [address] Jul, [place] [address] [facility] [id number] [address] [place] [address] Jul, Major depressive disorder, r ecurrent episode, severe, 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 [facility] [place] [address] [facility] [id number] [address] [place] [address] Jun, Major depressive disorder, r ecurrent episode, severe, 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 [facility] [place] [address] [facility] [id number] [address] [place] [address] May, [place] [address] [facility] [id number] [address] [place] [address] May, Major depressive disorder, r ecurrent episode, severe, 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 [place] [address] [facility] [id number] [address] [place] [address] May, Major depressive disorder, r ecurrent episode, severe, 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 [place] [address] [facility] [id number] [address] [place] [address] Apr, [place] [address] [facility] [id number] [address] [place] [address] Apr, Depressive disorder, not els ewhere classified 311 and Unspecified psychosis 298.9 [place] [address] [facility] [id number] [address] [place] [address] Apr, Depression 311 and Hard of h earing 389.9 [place] [address] [facility] [id number] [address] [place] [address] 10 Apr, 2015 Schizoaffective disorder 295 .70 [place] [address] [facility] [id number] [address] [place] [address] 08 Apr, 2015 Major depressive disorder, r ecurrent episode, severe, specified as with psychotic behavior 296.34 [place] [address] [facility] [id number] [address] [place] [address] Apr, Psychosis 298.9 and Depressi on 311 [place] [address] [facility] [id number] [address] [place] [address] Apr, Depressive disorder, not els ewhere classified 311 and Unspecified psychosis 298.9 [facility] [place] [address] [id number] [address] [place] [address] Mar, Screening for cervical cance r V76.2 ; Well woman exam with routine gynecological exam V72.31 ; Colon cancer screening V76.51 ; Breast cancer screening V76.10 ; Irritable bowel syndrome 564.1 and Psychosis 298.9 [facility] [place] [address] [id number] [address] [place] [address] Mar, Psychosis 298.9 [facility] [place] [address] [id number] [address] [place] [address] Mar, Unspecified psychosis 298.9 [facility] [place] [address] [id number] [address] [place] [address] Nov, [facility] [place] [address] [id number] [address] [place] [address] Nov, [facility] [place] [address] [id number] [address] [place] [address] Oct, [facility] [place] [address] [id number] [address] [place] [address] Oct, [facility] [place] [address] [facility] [id number] [address] [place] [address] Jul, [facility] [place] [address] [id number] [address] [place] [address] Jul, [facility] [place] [address] [id number] [address] [place] [address] 13 May, 2014 [facility] [place] [address] [id number] [address] [place] [address] Apr, [facility] [place] [address] [id number] [address] [place] [address] 11 Apr, 2014 [facility] [place] [address] [id number] [address] [place] [address] Apr, [facility] [address] [id number] [facility] [place] [address] Apr, [facility] [address] [id number] [facility] [place] [address] Apr, [facility] [address] [id number] [facility] [place] [address] Mar, [facility] [address] [id number] [address] [place] [address], [place] [address] Mar, [facility] [address] [id number] [facility] [place] [address] Mar, [facility] [address] [id number] [address] [place] [address], [place] [address] Mar, [facility] [address] [id number] [address] [place] [address], [place] [address] Mar, [facility] [address] [id number] [address] [place] [address], [place] [address] Mar, [facility] [address] [id number] [address] [place] [address], [place] [address] Mar, [facility] [address] [id number] [address] [place] [address], [place] [address] Mar, [facility] [address] [id number] [address] [place] [address], [place] [id number] Mar, [facility] [place] [facility] [address] [id number] [address] [place] [address], [place] [id number] Mar, [facility] [place] [facility] [address] [id number] [address] [place] [address], [place] [id number] Jan, [facility] [place] [facility] [address] [id number] [address] [place] [address], [place] [id number] Jan, [facility] [place] [facility] [address] [id number] [address] [place] [address], [place] [id number] December, [facility] [place] [facility] [address] [id number] [address] [place] [address] December, [facility] [address] [id number] [address] [place] [address], [place] [address] Nov, [facility] [address] [id number] [address] [place] [address], [place] [address] Nov, [facility] [address] [id number] [address] [place] [address], [place] [id number] Sep, [facility] [address] [id number] [address] [place] [address], [place] [address] Sep, [facility] [address] [id number] [address] [place] [address], [place] [id number] Sep, [facility] [address] [id number] [address] [place] [address], [place] [id number] Sep, [facility] [address] [id number] [address] [place] [address], [place] [id number] Jun, [facility] [address] [id number] [address] [place] [address], [place] [id number] Jun, [facility] [address] [id number] [address] [place] [address], [place] [id number] Jun, [facility] [address] [id number] [address] [place] [address], [place] [id number] Jun, [facility] [address] [id number] [address] [place] [address], [place] [address] May, [facility] [address] [id number] [address] [place] [address], [place] [address] May, [facility] [place] [facility] [address] [id number] [address] [place] [address], [place] [id number] Apr, [facility] [address] [id number] [address] [place] [address], [place] [id number] Mar, [facility] [address] [id number] [address] [place] [address], [place] [id number] Mar, [facility] [address] [id number] [address] [place] [address], [place] [id number] Mar, [facility] [address] [id number] [address] [place] [address], [place] [address] Mar, [facility] [address] [id number] [address] [place] [address], [place] [address] Mar, [facility] [address] [id number] [address] [place] [address], [place] [id number] Jan, [facility] [address] [id number] [address] [place] [address], [place] [id number] Jan, [facility] [address] [id number] [address] [place] [address], [place] [address] Jan, [facility] [address] [id number] [address] [place] [address], [place] [id number] December, [facility] [address] [id number] [address] [place] [address], [place] [id number] Oct, [facility] [address] [id number] [address] [place] [address], [place] [id number] Oct, [facility] [address] [id number] [address] [place] [address], [place] [id number] Oct, [facility] [address] [id number] [address] [place] [address], [place] [id number] Oct, [facility] [address] [id number] [address] [place] [address], [place] [id number] Aug, [facility] [address] [id number] [address] [place] [address], [place] [id number] Jun, [facility] [address] [id number] [address] [place] [address], [place] [id number] Jun, [facility] [address] [id number] [address] [place] [address], [place] [id number] 14 Jun, 2012 [facility] [address] [id number] [address] [place] [address], [place] [id number] Jun, [facility] [address] [id number] [address] [place] [address], [place] [id number] May, [facility] [address] [id number] [address] [place] [address], [place] [id number] Apr, [facility] [address] [id number] [address] [place] [address], [place] [id number] Mar, [facility] [address] [id number] [address] [place] [address], [place] [id number] Jan, [facility] [address] [id number] [address] [place] [address], [place] [id number] Jan, [facility] [address] [id number] [address] [place] [address], [place] [id number] December, [facility] [address] [id number] [address] [place] [address], [place] [id number] December, [facility] [address] [id number] [address] [place] [address], [place] [id number] December, [facility] [address] [id number] [address] [place] [address], [place] [id number] December, [facility] [address] [id number] [address] [place] [address], [place] [id number] Nov, [facility] [address] [id number] [address] [place] [address], [place] [id number] Oct, [facility] [address] [id number] [address] [place] [address], [place] [id number] Sep, [facility] [address] [id number] [address] [place] [address], [place] [id number] Sep, [facility] [address] [id number] [address] [place] [address], [place] [id number] Sep, [facility] [address] [id number] [address] [place] [address], [place] [id number] Sep, [facility] [place] [address] [id number] [address] [place] [id number] Aug, [facility] [place] [address] [id number] [address] [place] [id number] Jun, [facility] [place] [address] [id number] [address] [place] [id number] May, [facility] [place] [address] [id number] [address] [place] [id number] Mar, [facility] [place] [address] [id number] [address] [place] [id number] Jun, [facility] [place] [address] [id number] [address] [place] [id number] May, [facility] [place] [address] [id number] [address] [place] [id number] May, IMMUNIZATIONS No Known Immunizations SOCIAL HISTORY Never Assessed REASON FOR VISIT Wound check- Wound on right inner thigh is now closed with pink tissue, area no longer white, pt state it is no longer painful. per Ruth continue with silvadi ne and silicone dressing, pt will come back on Thursday for another wound check , Gómez alarcon sent to via [facility] emergency department [employer] supply- Simba Pablo RN PLAN OF CARE VITAL [...]
--- OUTSIDE RECORDS SUMMARY | 2020-02-21 11:45 | XMS REPORT ---
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892 Active 169981798 ALLERGIES No Information ENCOUNTERS Encounter Location Date Diagnosis [place] [address] [address] December, [place] [address] [address] Oct, [place] [address] [address] Sep, [place] [address] [address] Sep, [place] [address] [address] Sep, Exercise counseling Z71.82 [facility] [address] [address] 18 Sep, 2019 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 due to a coleman bstance or known physiological condition F28 and Falling R29.6 [facility] [address] [address] 13 Sep, 2019 [facility] [address] [place] [address] 12 Sep, 2019 Falling R29.6 [place] [address] [address] 06 Sep, 2019 [place] [address] [address] 05 Sep, 2019 Acquired hypothyroidism E03.9 and Fallin g R29.6 [place] [address] [address] Aug, Depression, major, 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 [place] [address] [address] May, Depression, major, 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 [place] [address] [address] May, Wound of left lower extremity, subsequen t encounter S81.802D [place] [address] [address] May, Wound of left lower extremity, subsequen t encounter S81.802D [place] [address] [address] May, Wound of left lower extremity, subsequen t encounter S81.802D [place] [address] [address] May, Wound of left lower extremity, subsequen t encounter S81.802D [place] [address] [address] May, [place] [address] [address] May, Peripheral edema R60.9 ; Decubitus ulcer of left leg, stage 2 L89.892 ; Dry skin dermatitis L85.3 ; Encounter for immunization Z23 and Breast cancer screening Z12.39 [place] [address] [address] Mar, [place] [address] [address] Jan, Depression, major, 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 an d Morbid obesity E66.01 [place] [address] [address] Jan, Encounter for Medicare annual wellness e xam Z00.00 ; Hyperlipidemia, unspecified hyperlipidemia type E78.5 ; Depression, major, 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 ; Gastroesophageal reflux disease without esophagitis K21.9 ; Acquired hypothyroidism E03.9 ; Hearing loss of both ears H91.93 ; Post menopausal syndrome N95.1 and Morbid obesity E66.01 [place] [address] [address] Jan, Hyperlipidemia, unspecified hyperlipidem ia type E78.5 and Morbid obesity E66.01 [place] [address] [address] Jan, [place] [address] [address] December, [place] [address] [address] December, [place] [address] [address] December, [place] [address] [address] December, Wound of left lower extremity, subsequen t encounter S81.802D [place] [address] [address] Nov, [facility] [address] [address] Nov, Blister of left lower extremity without infection, initial encounter S80.822A and Morbid obesity E66.01 [facility] [address] [place] [id number] [place] [address] Nov, [facility] [address] [address] Nov, [facility] [address] [address] Nov, [facility] [address] [address] Nov, [facility] [address] [address] Nov, [facility] [address] [address] Nov, [facility] [address] [address] Oct, [facility] [address] [address] Oct, Depression, major, 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 [facility] [address] [address] Oct, [facility] [address] [address] Oct, [facility] [address] [address] Oct, [facility] [address] [address] Oct, Morbid obesity E66.01 and Pressure injur y of left buttock, stage 2 L89.322 [facility] [address] [address] Oct, [facility] [address] [address] Oct, [place] [address] [address] Oct, [place] [address] [address] 06 Oct, 2018 Pressure injury of other site, stage 2 L 89.892 and Morbid obesity E66.01 [place] [address] [address] Sep, Cellulitis of other specified site L03.8 18 and BMI 40.0-44.9, adult Z68.41 [place] [address] [address] 13 Sep, 2018 Scab R23.4 and BMI 40.0-44.9, adult Z68. 41 [place] [address] [address] Jun, Major depression 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 [place] [address] [address] 27 Apr, 2018 [place] [address] [address] 24 Apr, 2018 Encounter for breast cancer screening ot her than mammogram Z12.39 ; Encounter for immunization Z23 and Colon cancer screening Z12.[address] [address] 30 Mar, 2018 Major depression in partial remission F3 2.4 and BMI 40.0-44.9, adult Z68.41 [place] [address] [address] Mar, [address] [address] Mar, Acquired hypothyroidism E03.9 [place] [address] [address] Mar, Pain in left knee M25.562 ; Other chroni c pain G89.29 and Gastroesophageal reflux disease without esophagitis K21.9 [place] [address] [place] [id number] [place] [address] Jan, [place] [address] [address] Jan, Acquired hypothyroidism E03.9 [place] [address] [address] Jan, [place] [address] [address] Jan, Acquired hypothyroidism E03.9 [place] [address] [address] December, Major depressive disorder in full remiss ion, unspecified whether recurrent F32.5 [place] [address] [address] Nov, Acquired hypothyroidism E03.9 [place] [address] [address] Nov, Pure hypercholesterolemia E78.0 ; Periph eral edema R60.9 and Acquired hypothyroidism E03.9 [place] [address] [address] Oct, Mild acid reflux K21.9 [place] [address] [address] 08 Sep, 2017 Major depressive disorder, single episod e, in partial remission F32.4 and Long-term use of high-risk medication Z79.899 [place] [address] [place] [id number] [place] [address] Aug, Encounter for immunization Z23 [place] [address] [address] Jul, [place] [address] [address] Jun, Medicare annual wellness visit, initial Z00.00 ; BMI 40.0-44.9, adult Z68.41 and Encounter for immunization Z23 [place] [address] [address] 10 May, 2017 [facility] [address] [address] May, Encounter for immunization Z23 [facility] [address] [address] 10 May, 2017 Major depression in partial remission F3 2.4 [facility] [address] [address] 11 Apr, 2017 Hearing loss H91.90 ; Encounter for immu nization Z23 and Encounter for screening mammogram for breast cancer Z12.31 [place] [address] [place] [address] Mar, Acquired hypothyroidism E03.9 [place] [address] [address] Jan, Acquired hypothyroidism E03.9 [place] [address] [address] Jan, Acute midline low back pain without scia suraj M54.5 [place] [address] [address] Jan, Peripheral edema R60.9 [place] [address] [address] Jan, Major depression in partial remission F3 2.4 [place] [address] [address] Jan, Localized edema R60.0 [facility] [address] [address] Nov, Pure hypercholesterolemia E78.0 [place] [address] [address] Nov, Pure hypercholesterolemia E78.0 [facility] [address] [address] Nov, Peripheral edema R60.9 [facility] [address] [address] Oct, Major depression in partial remission F3 2.4 [place] [address] [address] Aug, [place] [address] [address] Aug, Elevated blood pressure reading R03.0 [place] [address] [address] Aug, [place] [address] [address] Jun, Major depression in partial remission F3 2.4 [place] [address] [address] Apr, Major depressive disorder, recurrent epi sode, mild F33.0 [place] [address] [address] Mar, Encounter for well woman exam with ilene winter gynecological exam Z01.419 and Breast cancer screening Z12.39 [place] [address] [address] Jan, Hypothyroidism, unspecified type E03.9 [place] [address] [address] Jan, Major depressive disorder, recurrent epi sode, mild F33.0 [place] [address] [address] Jan, Abscess L02.91 [place] [address] [address] Jan, Furuncle L02.92 [place] [address] [address] Jan, Major depression in partial remission F3 2.4 [place] [address] [address] Jan, Major depressive disorder, recurrent epi sode, mild F33.0 [facility] [address] [place] [id number] [address] December, Acute bacterial conjunctivit is of left eye H10.022 [place] [address] [address] December, Major depressive disorder, recurrent epi sode, mild F33.0 [place] [address] [address] Nov, [place] [address] [address] Nov, Major depressive disorder, recurrent epi sode, mild F33.0 [place] [address] [address] Nov, Hearing loss H91.90 [place] [address] [address] Oct, Major depression in partial remission F3 2.4 [place] [address] [address] Oct, Pneumonia J18.9 [facility] [address] [place] [address] Oct, Influenza A J10.1 ; Fever, u nspecified R50.9 ; Conjunctivitis H10.9 and Cough R05 [place] [address] [address] Oct, Major depressive disorder, recurrent epi sode, severe, 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 [place] [address] [address] Aug, [place] [address] [address] Aug, Acquired hypothyroidism E03.9 and Pure h ypercholesterolemia E78.0 [place] [address] [address] Aug, Major depressive disorder, recurrent epi sode, severe, 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 [facility] [address] [address] Jul, [facility] [address] [place] [address] Jul, Major depressive disorder, recurrent epi sode, severe, 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 [place] [address] [address] Jun, Major depressive disorder, recurrent epi sode, severe, 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 [place] [address] [address] May, [address] [address] May, Major depressive disorder, recurrent epi sode, severe, 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 [place] [address] [address] May, Major depressive disorder, recurrent epi sode, severe, 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 [place] [address] [address] Apr, [address] [address] Apr, Depressive disorder, not elsewhere class ified 311 and Unspecified psychosis 298.[address] [address] Apr, Depression 311 and Hard of hearing 389.[address] [address] Apr, Schizoaffective disorder 295.[address] [address] Apr, Major depressive disorder, recurrent epi sode, severe, specified as with psychotic behavior 296.[address] [address] Apr, Psychosis 298.9 and Depression 311 [facility] [address] [place] [id number] [place] [address] Apr, Depressive disorder, not elsewhere class ified 311 and Unspecified psychosis 298.9 [facility] [address] [place] [id number] [place] [address] Mar, Screening for cervical cancer V76.2 ; We ll woman exam with routine gynecological exam V72.31 ; Colon cancer screening V76.51 ; Breast cancer screening V76.10 ; Irritable bowel syndrome 564.1 and Psychosis 298.9 [facility] [address] [address] Mar, Psychosis 298.9 [facility] [address] [address] Mar, Unspecified psychosis 298.9 [facility] [address] [address] Nov, [facility] [address] [address] Nov, [facility] [address] [address] Oct, [facility] [address] [address] Oct, [facility] [address] [address] Jul, [facility] [address] [address] Jul, [facility] [address] [address] May, [facility] [address] [address] Apr, [facility] [address] [address] Apr, [facility] [address] [address] 05 Apr, 2014 [facility] [address] [id number] [place] [address] Apr, [facility] [address] [facility] [id number] [place] [address] Apr, [facility] [address] [facility] [id number] [place] [address] Mar, [facility] [address] [id number] [place] [address] Mar, [facility] [address] [facility] [id number] [place] [address] Mar, [facility] [address] [id number] [place] [address] Mar, [facility] [address] [id number] [place] [address] Mar, [facility] [address] [id number] [place] [address] Mar, [facility] [address] [id number] [place] [address] Mar, [facility] [address] [id number] [place] [address] Mar, [facility] [address] [id number] [place] [address] Mar, [facility] [address] [id number] [place] [address] Mar, [facility] [address] [id number] [place] [address] Jan, [facility] [address] [facility] [id number] [place] [address] Jan, [facility] [address] [id number] [place] [address] December, [facility] [address] [id number] [place] [address] December, [facility] [address] [id number] [place] [address] Nov, [facility] [address] [facility] [id number] [place] [address] Nov, [facility] [address] [id number] [place] [address] Sep, [facility] [address] [id number] [place] [address] Sep, [facility] [address] [id number] [place] [address] Sep, [facility] [address] [id number] [place] [address] Sep, [facility] [address] [id number] [place] [address] Jun, [facility] [address] [id number] [place] [address] Jun, [facility] [address] [id number] [place] [address] Jun, [facility] [address] [id number] [place] [address] Jun, [facility] [address] [id number] [place] [address] May, [facility] [address] [id number] [place] [address] May, [facility] [address] [id number] [place] [address] Apr, [facility] [address] [id number] [place] [address] Mar, [facility] [address] [id number] [place] [address] Mar, [facility] [address] [id number] [place] [address] Mar, [facility] [address] [id number] [place] [address] Mar, [facility] [address] [id number] [place] [address] 05 Mar, 2013 [facility] [address] [id number] [place] [address] Jan, [facility] [address] [id number] [place] [address] Jan, [facility] [address] [id number] [place] [address] Jan, [facility] [address] [id number] [place] [address] December, [facility] [address] [id number] [place] [address] Oct, [facility] [address] [id number] [place] [address] Oct, [facility] [address] [id number] [place] [address] Oct, [facility] [address] [id number] [place] [address] Oct, [facility] [address] [id number] [place] [address] Aug, [facility] [address] [id number] [place] [address] 16 Jun, 2012 [facility] [address] [id number] [place] [address] 16 Jun, 2012 [facility] [address] [id number] [place] [address] 14 Jun, 2012 [facility] [address] [id number] [place] [address] 14 Jun, 2012 [facility] [address] [id number] [place] [address] 05 May, 2012 [facility] [address] [id number] [place] [address] 10 Apr, 2012 [facility] [address] [id number] [place] [address] Mar, [facility] [address] [id number] [place] [address] Jan, [facility] [address] [id number] [place] [address] Jan, [facility] [address] [id number] [place] [address] December, [facility] [address] [id number] [place] [address] December, [facility] [address] [id number] [place] [address] December, [facility] [address] [id number] [place] [address] December, [facility] [address] [id number] [place] [address] Nov, [facility] [address] [id number] [place] [address] Oct, [facility] [address] [id number] [place] [address] Sep, [facility] [address] [id number] [place] [address] Sep, [facility] [address] [id number] [place] [address] Sep, [facility] [address] [id number] [place] [address] Sep, [facility] [address] [id number] [place] [address] Aug, [facility] [address] [id number] [place] [address] Jun, [facility] [address] [id number] [place] [address] May, [facility] [address] [id number] [place] [address] Mar, [facility] [address] [id number] [place] [address] Jun, [facility] [address] [id number] [place] [address] May, [facility] [address] [id number] [place] [address] May, IMMUNIZATIONS No Known Immunizations SOCIAL HISTORY Never Assessed REASON FOR VISIT PLAN OF CARE VITAL SIGNS Height 65 in 2013-09-28 Weight 252 lbs 2013-09-28 Temperature 98 degrees Fahrenheit 2013-09-28 Heart Rate 81 bpm 2013-09-28 Respiratory Rate 18 2013-09-28 Blood pressure systolic 121 mmHg 2013-09-28 Blood pressure diastolic 80 mmHg 2013-09-28 MEDICATIONS Unknown Medications RESULTS No Results PROCEDURES [...]
[2020-02-21] MEDS ORDERED: proPOfol 200 MG/20 ML (DIPRIVAN) VIAL IV ONE (11:46)
--- OUTSIDE RECORDS SUMMARY | 2020-02-21 11:46 | XMS REPORT ---
Author Author Tarik POTTS Organization [facility] Address [address] [place] [address] Care Team Providers Care Translator Name Role Phone ROMA POTTS Unavailable PROBLEMS Type Condition ICD9-CM Code VNB87-BB Code Onset Dates Condition S tatus SNOMED Code Problem Osteopenia after menopause M81.0 Act mode 496192656 Problem Hearing loss of both ears H91.93 Acti ve 71302958 Problem Acquired hypothyroidism E03.9 Active 891921252 Problem Hyperlipidemia, unspecified hyperlipidemia type E7 8.5 Active 71924396 Problem Post menopausal syndrome N95.1 Activ e 230668695 Problem Pure hypercholesterolemia E78.0 Acti ve 186046367 Problem Gastroesophageal reflux disease without esophagitis K21.9 Active 259078274 Problem Depression, major, 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 Active 73766629 Problem Pressure injury of left buttock, stage 2 L89.322 Active 866301219 ALLERGIES No Information ENCOUNTERS Encounter Location Date Diagnosis [place] [address] [facility] [id number] [address] [place] [phone] May, [place] [address] [facility] [id number] [address] [place] [address] May, [place] [address] [place] [id number] [address] [place] [address] Mar, [place] [address] [facility] [id number] [address] [place] [phone] Jan, Depression, major, in remiss ion F32.5 and Morbid obesity E66.01 [place] [address] [facility] [id number] [address] [place] [address] Jan, Encounter for Medicare annua l wellness exam Z00.00 ; Hyperlipidemia, unspecified hyperlipidemia type E78.5 ; Depression, major, 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 ; Gastroesophageal reflux disease without esophagitis K21.9 ; Acquired hypothyroidism E03.9 ; Hearing loss of both ears H91.93 ; Post menopausal syndrome N95.1 and Morbid obesity E66.01 [facility] [address] [id number] [address] [place] [address] Jan, Hyperlipidemia, unspecified hyperlipidemia type E78.5 and Morbid obesity E66.01 [facility] [address] [id number] [address] [place] [address] Jan, [facility] [address] [id number] [address] [place] [phone] December, [facility] [address] [id number] [address] [place] [address] December, [facility] [address] [id number] [address] [place] [address] December, [facility] [address] [id number] [address] [place] [address] December, Wound of left lower extremit y, subsequent encounter S81.802D [facility] [address] [id number] [address] [place] [address] Nov, [facility] [address] [id number] [address] [place] [address] Nov, Blister of left lower extrem ity without infection, initial encounter S80.822A and Morbid obesity E66.01 [facility] [address] [id number] [address] [place] [address] Nov, [facility] [address] [id number] [address] [place] [address] Nov, [facility] [address] [id number] [address] [place] [phone] Nov, [facility] [address] [id number] [address] [place] [address] Nov, [facility] [address] [id number] [address] [place] [phone] Nov, [facility] [address] [id number] [address] [place] [address] Nov, [facility] [address] [id number] [address] [place] [phone] Oct, [facility] [address] [facility] [id number] [address] [place] [address] Oct, Depression, major, in remiss ion F32.5 [facility] [address] [id number] [address] [place] [phone] Oct, [facility] [address] [id number] [address] [place] [phone] Oct, [facility] [address] [facility] [id number] [address] [place] [phone] Oct, [facility] [address] [facility] [id number] [address] [place] [address] Oct, Morbid obesity E66.01 and Pr essure injury of left buttock, stage 2 L89.322 [facility] [address] [id number] [address] [place] [phone] Oct, [facility] [address] [facility] [id number] [address] [place] [phone] Oct, [facility] [address] [facility] [id number] [address] [place] [address] Oct, [facility] [address] [facility] [id number] [address] [place] [address] Oct, Pressure injury of other sit e, stage 2 L89.892 and Morbid obesity E66.01 [facility] [address] [id number] [address] [place] [address] Sep, Cellulitis of other specifie d site L03.818 and BMI 40.0-44.9, adult Z68.41 [place] [address] [facility] [id number] [address] [place] [id number] 13 Sep, 2018 Scab R23.4 and BMI 40.0-44.9 , adult Z68.41 [facility] [address] [facility] [id number] [address] [place] [phone] Jun, Major depression in remissio n F32.5 [facility] [address] [facility] [id number] [address] [place] [address] Apr, [facility] [address] [facility] [id number] [address] [place] [address] Apr, Encounter for breast cancer screening other than mammogram Z12.39 ; Encounter for immunization Z23 and Colon cancer screening Z12.11 [place] [address] [facility] [id number] [address] [place] [address] Mar, Major depression in partial remission F32.4 and BMI 40.0-44.9, adult Z68.41 [facility] [address] [facility] [id number] [address] [place] [address] Mar, [place] [address] [facility] [id number] [address] [place] [phone] Mar, Acquired hypothyroidism E03. 9 [facility] [address] [facility] [id number] [address] [place] [address] Mar, Pain in left knee M25.562 ; Other chronic pain G89.29 and Gastroesophageal reflux disease without esophagitis K21.9 [facility] [address] [facility] [id number] [address] [place] [id number] Jan, [facility] [address] [facility] [id number] [address] [place] [phone] Jan, Acquired hypothyroidism E03. 9 [facility] [address] [facility] [id number] [address] [place] [id number] Jan, [facility] [address] [facility] [id number] [address] [place] [phone] Jan, Acquired hypothyroidism E03. 9 [facility] [address] [facility] [id number] [address] [place] [id number] December, Major depressive disorder in full remission, unspecified whether recurrent F32.5 [facility] [address] [id number] [address] [place] [phone] Nov, Acquired hypothyroidism E03. 9 [facility] [address] [facility] [id number] [address] [place] [address] Nov, Pure hypercholesterolemia E7 8.0 ; Peripheral edema R60.9 and Acquired hypothyroidism E03.9 [place] [address] [facility] [id number] [address] [place] [phone] Oct, Mild acid reflux K21.9 [facility] [address] [facility] [id number] [address] [place] [phone] Sep, Major depressive disorder, s glenny episode, in partial remission F32.4 and Long-term use of high-risk medication Z79.899 [place] [address] [facility] [id number] [address] [place] [id number] Aug, Encounter for immunization Z 23 [place] [address] [facility] [id number] [address] [place] [phone] Jul, [place] [address] [facility] [id number] [address] [place] [address] Jun, Medicare annual wellness vis it, initial Z00.00 ; BMI 40.0-44.9, adult Z68.41 and Encounter for immunization Z23 [facility] [address] [facility] [id number] [address] [place] [phone] May, [place] [address] [facility] [id number] [address] [place] [phone] May, Encounter for immunization Z 23 [facility] [address] [facility] [id number] [address] [place] [address] May, Major depression in partial remission F32.4 [facility] [address] [facility] [id number] [address] [place] [phone] Apr, Hearing loss H91.90 ; Encoun ter for immunization Z23 and Encounter for screening mammogram for breast cancer Z12.31 [facility] [address] [facility] [id number] [address] [place] [id number] Mar, Acquired hypothyroidism E03. 9 [facility] [address] [facility] [id number] [address] [place] [address] Jan, Acquired hypothyroidism E03. 9 [facility] [address] [facility] [id number] [address] [place] [address] Jan, Acute midline low back pain without sciatica M54.5 [place] [address] [facility] [id number] [address] [place] [id number] Jan, Peripheral edema R60.9 [place] [address] [facility] [id number] [address] [place] [phone] Jan, Major depression in partial remission F32.4 [facility] [address] [facility] [id number] [address] [place] [phone] Jan, Localized edema R60.0 [place] [address] [facility] [id number] [address] [place] [phone] Nov, Pure hypercholesterolemia E7 8.0 [place] [address] [facility] [id number] [address] [place] [address] Nov, Pure hypercholesterolemia E7 8.0 [facility] [address] [facility] [id number] [address] [place] [address] Nov, Peripheral edema R60.9 [facility] [address] [facility] [id number] [address] [place] [address] Oct, Major depression in partial remission F32.4 [facility] [address] [facility] [id number] [address] [place] [address] Aug, [facility] [address] [facility] [id number] [address] [place] [address] Aug, Elevated blood pressure read ing R03.0 [facility] [address] [id number] [address] [place] [address] Aug, [facility] [address] [id number] [address] [place] [address] Jun, Major depression in partial remission F32.4 [facility] [address] [id number] [address] [place] [phone] Apr, Major depressive disorder, r ecurrent episode, mild F33.0 [facility] [address] [facility] [id number] [address] [place] [address] Mar, Encounter for well woman reta rios with routine gynecological exam Z01.419 and Breast cancer screening Z12.39 [place] [address] [facility] [id number] [address] [place] [address] Jan, Hypothyroidism, unspecified type E03.9 [facility] [address] [id number] [address] [place] [phone] Jan, Major depressive disorder, r ecurrent episode, mild F33.0 [facility] [address] [facility] [id number] [address] [place] [id number] 30 Jan, 2016 Abscess L02.91 [place] [address] [facility] [id number] [address] [place] [address] Jan, Furuncle L02.92 [place] [address] [facility] [id number] [address] [place] [id number] 16 Jan, 2016 Major depression in partial remission F32.4 [facility] [address] [id number] [address] [place] [address] Jan, Major depressive disorder, r ecurrent episode, mild F33.0 [facility] [address] [id number] [address] [place] [id number] December, Acute bacterial conjunctivit is of left eye H10.022 [place] [address] [address] December, Major depressive disorder, r ecurrent episode, mild F33.0 [facility] [address] [address] Nov, [place] [address] [address] Nov, Major depressive disorder, r ecurrent episode, mild F33.0 [place] [address] [address] Nov, Hearing loss H91.90 [place] [address] [address] Oct, Major depression in partial remission F32.4 [place] [address] [address] Oct, Pneumonia J18.9 [facility] [address] [address] Oct, Influenza A J10.1 ; Fever, u nspecified R50.9 ; Conjunctivitis H10.9 and Cough R05 [place] [address] [address] Oct, Major depressive disorder, r ecurrent episode, severe, 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 [place] [address] [address] Aug, [place] [address] [address] Aug, Acquired hypothyroidism E03. 9 and Pure hypercholesterolemia E78.0 [place] [address] [address] Aug, Major depressive disorder, r ecurrent episode, severe, 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 [place] [address] [address] Jul, [place] [address] [facility] [id number] [address] [place] [address] Jul, Major depressive disorder, r ecurrent episode, severe, 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 [facility] [address] [facility] [id number] [address] [place] [id number] Jun, Major depressive disorder, r ecurrent episode, severe, 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 [facility] [address] [facility] [id number] [address] [place] [address] May, [place] [address] [facility] [id number] [address] [place] [phone] May, Major depressive disorder, r ecurrent episode, severe, 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 [place] [address] [facility] [id number] [address] [place] [id number] May, Major depressive disorder, r ecurrent episode, severe, 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 [place] [address] [facility] [id number] [address] [place] [address] Apr, [place] [address] [facility] [id number] [address] [place] [address] Apr, Depressive disorder, not els ewhere classified 311 and Unspecified psychosis 298.9 [place] [address] [facility] [id number] [address] [place] [address] Apr, Depression 311 and Hard of h earing 389.9 [place] [address] [facility] [id number] [address] [place] [address] 10 Apr, 2015 Schizoaffective disorder 295 .70 [place] [address] [facility] [id number] [address] [place] [address] 08 Apr, 2015 Major depressive disorder, r ecurrent episode, severe, specified as with psychotic behavior 296.34 [place] [address] [facility] [id number] [address] [place] [address] Apr, Psychosis 298.9 and Depressi on 311 [place] [address] [facility] [id number] [address] [place] [address] Apr, Depressive disorder, not els ewhere classified 311 and Unspecified psychosis 298.9 [facility] [address] [id number] [address] [place] [address] Mar, Screening for cervical cance r V76.2 ; Well woman exam with routine gynecological exam V72.31 ; Colon cancer screening V76.51 ; Breast cancer screening V76.10 ; Irritable bowel syndrome 564.1 and Psychosis 298.9 [facility] [address] [id number] [address] [place] [address] Mar, Psychosis 298.9 [facility] [address] [id number] [address] [place] [address] Mar, Unspecified psychosis 298.9 [facility] [address] [id number] [address] [place] [address] Nov, [facility] [address] [id number] [address] [place] [address] Nov, [facility] [address] [id number] [address] [place] [address] Oct, [facility] [address] [id number] [address] [place] [address] Oct, [facility] [address] [facility] [id number] [address] [place] [address] Jul, [facility] [address] [id number] [address] [place] [id number] Jul, [facility] [address] [id number] [address] [place] [address] 13 May, 2014 [facility] [address] [id number] [address] [place] [address] Apr, [facility] [address] [id number] [address] [place] [address] 11 Apr, 2014 [facility] [address] [id number] [address] [place] [address] Apr, [facility] [address] [id number] [address] [place] [address] Apr, [facility] [place] [facility] [address] [id number] [address] [place] [address] Apr, [facility] [place] [facility] [address] [id number] [address] [place] [address] Mar, [facility] [place] [facility] [address] [id number] [address] [place] [address], [place] [address] Mar, [facility] [place] [facility] [address] [id number] [address] [place] [address] Mar, [facility] [place] [facility] [address] [id number] [address] [place] [address], [place] [address] Mar, [facility] [place] [facility] [address] [id number] [address] [place] [address], [place] [address] Mar, [facility] [place] [facility] [address] [id number] [address] [place] [address], [place] [address] Mar, [facility] [place] [facility] [address] [id number] [address] [place] [address], [place] [address] Mar, [facility] [place] [facility] [address] [id number] [address] [place] [address], [place] [address] Mar, [facility] [place] [facility] [address] [id number] [address] [place] [address], [place] [address] Mar, [facility] [place] [facility] [address] [id number] [address] [place] [address], [place] [address] Mar, [facility] [place] [facility] [address] [id number] [address] [place] [address], [place] [address] Jan, [facility] [place] [facility] [address] [id number] [address] [place] [address], [place] [address] Jan, [facility] [place] [facility] [address] [id number] [address] [place] [address], [place] [address] December, [facility] [place] [facility] [address] [id number] [address] [place] [address] December, [facility] [address] [id number] [address] [place] [address], [place] [address] Nov, [facility] [address] [id number] [address] [place] [address], [place] [address] Nov, [facility] [address] [id number] [address] [place] [address], [place] [address] Sep, [facility] [address] [id number] [address] [place] [address], [place] [address] Sep, [facility] [address] [id number] [address] [place] [address], [place] [address] Sep, [facility] [address] [id number] [address] [place] [address], [place] [address] Sep, [facility] [address] [id number] [address] [place] [address], [place] [address] Jun, [facility] [address] [id number] [address] [place] [address], [place] [address] Jun, [facility] [address] [id number] [address] [place] [address], [place] [address] Jun, [facility] [address] [id number] [address] [place] [address], [place] [address] Jun, [facility] [address] [id number] [address] [place] [address], [place] [address] May, [facility] [address] [id number] [address] [place] [address], [place] [address] May, [facility] [place] [facility] [address] [id number] [address] [place] [address], [place] [address] Apr, [facility] [address] [id number] [address] [place] [address], [place] [address] Mar, [facility] [address] [id number] [address] [place] [address], [place] [address] Mar, [facility] [address] [id number] [address] [place] [address], [place] [address] Mar, [facility] [address] [id number] [address] [place] [address], [place] [address] Mar, [facility] [address] [id number] [address] [place] [address], [place] [address] Mar, [facility] [address] [id number] [address] [place] [address], [place] [address] Jan, [facility] [address] [id number] [address] [place] [address], [place] [address] Jan, [facility] [address] [id number] [address] [place] [address], [place] [address] Jan, [facility] [address] [id number] [address] [place] [address], [place] [address] December, [facility] [address] [id number] [address] [place] [address], [place] [address] Oct, [facility] [address] [id number] [address] [place] [address], [place] [address] Oct, [facility] [address] [id number] [address] [place] [address], [place] [address] Oct, [facility] [address] [id number] [address] [place] [address], [place] [address] Oct, [facility] [address] [id number] [address] [place] [address], [place] [address] Aug, [facility] [address] [id number] [address] [place] [address], [place] [address] Jun, [facility] [address] [id number] [address] [place] [address], [place] [address] Jun, [facility] [address] [id number] [address] [place] [address], [place] [address] 14 Jun, 2012 [facility] [address] [id number] [address] [place] [address], [place] [address] Jun, [facility] [address] [id number] [address] [place] [address], [place] [address] May, [facility] [address] [id number] [address] [place] [address], [place] [address] Apr, [facility] [address] [id number] [address] [place] [address], [place] [address] Mar, [facility] [address] [id number] [address] [place] [address], [place] [address] Jan, [facility] [address] [id number] [address] [place] [address], [place] [address] Jan, [facility] [address] [id number] [address] [place] [address], [place] [address] December, [facility] [address] [id number] [address] [place] [address], [place] [address] December, [facility] [address] [id number] [address] [place] [address], [place] [address] December, [facility] [address] [id number] [address] [place] [address], [place] [address] December, [facility] [address] [id number] [address] [place] [address], [place] [address] Nov, [facility] [address] [id number] [address] [place] [address], [place] [address] Oct, [facility] [address] [id number] [address] [place] [address], [place] [address] Sep, [facility] [address] [id number] [address] [place] [address], [place] [address] Sep, [facility] [address] [id number] [address] [place] [address], [place] [address] Sep, [facility] [address] [id number] [address] [place] [address], [place] [address] Sep, [facility] [address] [id number] [address] [place] [phone] Aug, [facility] [address] [id number] [address] [place] [phone] Jun, [facility] [address] [id number] [address] [place] [phone] May, [facility] [address] [facility] [id number] [address] [place] [phone] Mar, [facility] [address] [facility] [id number] [address] [place] [phone] Jun, [facility] [address] [facility] [id number] [address] [place] [phone] May, [facility] [address] [facility] [id number] [address] [place] [phone] May, IMMUNIZATIONS No Known Immunizations SOCIAL HISTORY [...]
--- OUTSIDE RECORDS SUMMARY | 2020-02-21 11:46 | XMS REPORT ---
Author Author Tarik POTTS Organization [facility] Address [address] [place] [address] Care Team Providers Care Banquet Houseperson Name Role Phone ROMA POTTS Unavailable PROBLEMS Type Condition ICD9-CM Code JUU50-[id number] Code Onset Dates Condition S tatus SNOMED Code Problem Osteopenia after menopause M81.0 Act mode 569837077 Problem Hearing loss of both ears H91.93 Acti ve 67433687 Problem Acquired hypothyroidism E03.9 Active 354551052 Problem Hyperlipidemia, unspecified hyperlipidemia type E7 8.5 Active 89005459 Problem Post menopausal syndrome N95.1 Activ e 649947850 Problem Pure hypercholesterolemia E78.0 Acti ve 546624325 Problem Gastroesophageal reflux disease without esophagitis K21.9 Active 187823090 Problem Depression, major, 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00 ; Hyperlipidemia, unspecified hyperlipidemia type E78.5 ; Depression, major, 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 ; Gastroesophageal reflux disease without esophagitis K21.9 ; Acquired hypothyroidism E03.9 ; Hearing loss of both ears H91.93 ; Post menopausal syndrome N95.1 and Morbid obesity E66.01 [facility] [address] [id number] [address] [place] [address] Jan, Hyperlipidemia, unspecified hyperlipidemia type E78.5 and Morbid obesity E66.01 [facility] [address] [id number] [address] [place] [address] Jan, [facility] [address] [id number] [address] [place] [address] December, [facility] [address] [id number] [address] [place] [address] December, [facility] [address] [id number] [address] [place] [address] December, [facility] [address] [id number] [address] [place] [address] December, Wound of left lower extremit y, subsequent encounter S81.802D [facility] [address] [id number] [address] [place] [address] Nov, [facility] [address] [id number] [address] [place] [address] Nov, Blister of left lower extrem ity without infection, initial encounter S80.822A and Morbid obesity E66.01 [facility] [address] [id number] [address] [place] [address] Nov, [facility] [address] [id number] [address] [place] [address] Nov, [facility] [address] [id number] [address] [place] [address] Nov, [facility] [address] [id number] [address] [place] [phone] Nov, [facility] [address] [id number] [address] [place] [address] Nov, [facility] [address] [id number] [address] [place] [phone] Nov, [facility] [address] [id number] [address] [place] [address] Oct, [facility] [address] [id number] [address] [place] [phone] Oct, Depression, major, in remiss ion F32.5 [facility] [address] [id number] [address] [place] [address] Oct, [facility] [address] [id number] [address] [place] [phone] Oct, [facility] [address] [id number] [address] [place] [address] Oct, [facility] [address] [id number] [address] [place] [address] Oct, Morbid obesity E66.01 and Pr essure injury of left buttock, stage 2 L89.322 [facility] [address] [id number] [address] [place] [address] Oct, [facility] [address] [facility] [id number] [address] [place] [address] Oct, [facility] [address] [facility] [id number] [address] [place] [phone] Oct, [facility] [address] [facility] [id number] [address] [place] [address] Oct, Pressure injury of other sit e, stage 2 L89.892 and Morbid obesity E66.01 [facility] [address] [id number] [address] [place] [address] Sep, Cellulitis of other specifie d site L03.818 and BMI 40.0-44.9, adult Z68.41 [facility] [address] [facility] [id number] [address] [place] [phone] Sep, Scab R23.4 and BMI 40.0-44.9 , adult Z68.41 [facility] [address] [facility] [id number] [address] [place] [address] Jun, Major depression in remissio n F32.5 [facility] [address] [facility] [id number] [address] [place] [address] Apr, [facility] [address] [facility] [id number] [address] [place] [address] 24 Apr, 2018 Encounter for breast cancer screening other than mammogram Z12.39 ; Encounter for immunization Z23 and Colon cancer screening Z12.11 [place] [address] [facility] [id number] [address] [place] [id number] 30 Mar, 2018 Major depression in partial remission F32.4 and BMI 40.0-44.9, adult Z68.41 [place] [address] [facility] [id number] [address] [place] [phone] Mar, [place] [address] [facility] [id number] [address] [place] [address] Mar, Acquired hypothyroidism E03. 9 [place] [address] [facility] [id number] [address] [place] [address] Mar, Pain in left knee M25.562 ; Other chronic pain G89.29 and Gastroesophageal reflux disease without esophagitis K21.9 [place] [id number] [facility] [id number] [address] [place] [phone] Jan, [facility] [address] [facility] [id number] [address] [place] [address] Jan, Acquired hypothyroidism E03. 9 [facility] [address] [facility] [id number] [address] [place] [phone] Jan, [place] [address] [facility] [id number] [address] [place] [phone] Jan, Acquired hypothyroidism E03. 9 [facility] [address] [facility] [id number] [address] [place] [phone] December, Major depressive disorder in full remission, unspecified whether recurrent F32.5 [place] [address] [facility] [id number] [address] [place] [address] Nov, Acquired hypothyroidism E03. 9 [place] [address] [facility] [id number] [address] [place] [phone] Nov, Pure hypercholesterolemia E7 8.0 ; Peripheral edema R60.9 and Acquired hypothyroidism E03.9 [place] [address] [facility] [id number] [address] [place] [address] Oct, Mild acid reflux K21.9 [place] [address] [facility] [id number] [place] [phone] Sep, Major depressive disorder, s glenny episode, in partial remission F32.4 and Long-term use of high-risk medication Z79.899 [place] [address] [place] [id number] [address] [place] [phone] Aug, Encounter for immunization Z 23 [place] [address] [place] [id number] [address] [place] [address] Jul, [place] [address] [place] [id number] [place] [address] Jun, Medicare annual wellness vis it, initial Z00.00 ; BMI 40.0-44.9, adult Z68.41 and Encounter for immunization Z23 [place] [address] [facility] [id number] [address] [place] [phone] May, [place] [address] [place] [id number] [address] [place] [phone] May, Encounter for immunization Z 23 [place] [address] [facility] [id number] [address] [place] [address] May, Major depression in partial remission F32.4 [place] [address] [facility] [id number] [address] [place] [address] Apr, Hearing loss H91.90 ; Encoun ter for immunization Z23 and Encounter for screening mammogram for breast cancer Z12.31 [facility] [address] [facility] [id number] [address] [place] [id number] Mar, Acquired hypothyroidism E03. 9 [facility] [address] [facility] [id number] [address] [place] [phone] Jan, Acquired hypothyroidism E03. 9 [facility] [address] [facility] [id number] [address] [place] [address] Jan, Acute midline low back pain without sciatica M54.5 [facility] [address] [facility] [id number] [address] [place] [address] Jan, Peripheral edema R60.9 [facility] [address] [facility] [id number] [address] [place] [address] Jan, Major depression in partial remission F32.4 [facility] [address] [facility] [id number] [address] [place] [phone] Jan, Localized edema R60.0 [facility] [address] [facility] [id number] [address] [place] [address] Nov, Pure hypercholesterolemia E7 8.0 [facility] [address] [facility] [id number] [address] [place] [address] Nov, Pure hypercholesterolemia E7 8.0 [facility] [address] [facility] [id number] [address] [place] [address] Nov, Peripheral edema R60.9 [facility] [address] [facility] [id number] [address] [place] [address] Oct, Major depression in partial remission F32.4 [facility] [address] [facility] [id number] [address] [place] [address] Aug, [facility] [address] [facility] [id number] [address] [place] [address] Aug, Elevated blood pressure read ing R03.0 [facility] [address] [id number] [address] [place] [address] Aug, [facility] [address] [id number] [address] [place] [address] Jun, Major depression in partial remission F32.4 [facility] [address] [id number] [address] [place] [phone] Apr, Major depressive disorder, r ecurrent episode, mild F33.0 [place] [address] [facility] [id number] [address] [place] [address] Mar, Encounter for well woman reta rios with routine gynecological exam Z01.419 and Breast cancer screening Z12.39 [place] [address] [facility] [id number] [address] [place] [phone] Jan, Hypothyroidism, unspecified type E03.9 [place] [address] [facility] [id number] [address] [place] [address] Jan, Major depressive disorder, r ecurrent episode, mild F33.0 [facility] [address] [facility] [id number] [address] [place] [phone] 30 Jan, 2016 Abscess L02.91 [place] [address] [facility] [id number] [address] [place] [address] Jan, Furuncle L02.92 [place] [address] [place] [id number] [address] [place] [id number] 16 Jan, 2016 Major depression in partial remission F32.4 [facility] [address] [facility] [id number] [address] [place] [id number] 13 Jan, 2016 Major depressive disorder, r ecurrent episode, mild F33.0 [facility] [address] [facility] [id number] [address] [place] [address] December, Acute bacterial conjunctivit is of left eye H10.022 [facility] [address] [facility] [id number] [address] [place] [address] December, Major depressive disorder, r ecurrent episode, mild F33.0 [facility] [address] [facility] [id number] [address] [place] [phone] Nov, [facility] [address] [place] [id number] [address] [place] [address] Nov, Major depressive disorder, r ecurrent episode, mild F33.0 [place] [address] [place] [id number] [address] [place] [address] Nov, Hearing loss H91.90 [facility] [address] [place] [id number] [address] [place] [id number] 17 Oct, 2015 Major depression in partial remission F32.4 [place] [address] [place] [id number] [place] [id number] 15 Oct, 2015 Pneumonia J18.9 [facility] [address] [place] [id number] [address] [place] [phone] Oct, Influenza A J10.1 ; Fever, u nspecified R50.9 ; Conjunctivitis H10.9 and Cough R05 [facility] [address] [place] [id number] [address] [place] [phone] Oct, Major depressive disorder, r ecurrent episode, severe, 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 [place] [id number] [place] [id number] [address] [place] [phone] Aug, [place] [address] [place] [id number] [address] [place] [phone] Aug, Acquired hypothyroidism E03. 9 and Pure hypercholesterolemia E78.0 [facility] [address] [facility] [id number] [address] [place] [phone] Aug, Major depressive disorder, r ecurrent episode, severe, 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 [facility] [address] [facility] [id number] [address] [place] [id number] Jul, [place] [address] [place] [id number] [address] [place] [phone] Jul, Major depressive disorder, r ecurrent episode, severe, 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 [facility] [address] [facility] [id number] [address] [place] [phone] Jun, Major depressive disorder, r ecurrent episode, severe, 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 [facility] [address] [id number] [address] [place] [phone] May, [facility] [address] [facility] [id number] [address] [place] [address] May, Major depressive disorder, r ecurrent episode, severe, 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 [facility] [address] [id number] [address] [place] [address] May, Major depressive disorder, r ecurrent episode, severe, 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 [facility] [address] [facility] [id number] [address] [place] [address] Apr, [facility] [address] [facility] [id number] [address] [place] [address] Apr, Depressive disorder, not els ewhere classified 311 and Unspecified psychosis 298.9 [facility] [address] [facility] [id number] [address] [place] [address] Apr, Depression 311 and Hard of h earing 389.9 [facility] [address] [facility] [id number] [address] [place] [address] Apr, Schizoaffective disorder 295 .70 [facility] [address] [facility] [id number] [address] [place] [address] Apr, Major depressive disorder, r ecurrent episode, severe, specified as with psychotic behavior 296.34 [facility] [address] [facility] [id number] [address] [place] [address] Apr, Psychosis 298.9 and Depressi on 311 [facility] [address] [facility] [id number] [address] [place] [address] Apr, Depressive disorder, not els ewhere classified 311 and Unspecified psychosis 298.9 [facility] [address] [id number] [address] [place] [phone] 26 Mar, 2015 Screening for cervical cance r V76.2 ; Well woman exam with routine gynecological exam V72.31 ; Colon cancer screening V76.51 ; Breast cancer screening V76.10 ; Irritable bowel syndrome 564.1 and Psychosis 298.9 [facility] [address] [id number] [address] [place] [address] Mar, Psychosis 298.9 [facility] [address] [id number] [address] [place] [address] 18 Mar, 2015 Unspecified psychosis 298.9 [facility] [address] [id number] [address] [place] [id number] 14 Nov, 2014 [facility] [address] [id number] [address] [place] [phone] Nov, [facility] [address] [id number] [address] [place] [phone] Oct, [facility] [address] [id number] [address] [place] [phone] Oct, [facility] [address] [id number] [address] [place] [phone] Jul, [facility] [address] [facility] [id number] [address] [place] [phone] Jul, [facility] [address] [id number] [address] [place] [phone] May, [facility] [address] [id number] [address] [place] [id number] 11 Apr, 2014 [facility] [address] [id number] [address] [place] [address] 11 Apr, 2014 [facility] [address] [id number] [address] [place] [id number] 05 Apr, 2014 [facility] [address] [id number] [address] [place] [phone] Apr, [facility] [address] [id number] [facility] [place] [address] Apr, [facility] [address] [id number] [facility] [place] [address] Mar, [facility] [address] [id number] [facility] [place] [address] Mar, [facility] [place] [facility] [address] [id number] [address] [place] [address], [place] [address] Mar, [facility] [address] [id number] [facility] [place] [address] Mar, [facility] [address] [id number] [address] [place] [address], [place] [address] Mar, [facility] [address] [id number] [address] [place] [address], [place] [address] Mar, [facility] [place] [facility] [address] [id number] [address] [place] [address], [place] [address] Mar, [facility] [address] [id number] [address] [place] [address], [place] [address] Mar, [facility] [place] [address] [id number] [address] [place] [address], [place] [address] Mar, [facility] [place] [facility] [address] [id number] [address] [place] [address], [place] [address] Mar, [facility] [place] [address] [id number] [address] [place] [address], [place] [address] Jan, [facility] [place] [facility] [address] [id number] [address] [place] [address], [place] [address] Jan, [facility] [place] [facility] [address] [id number] [address] [place] [address], [place] [address] December, [facility] [place] [address] [id number] [address] [place] [address], [place] [address] December, [facility] [place] [facility] [address] [id number] [address] [place] [address] 14 Nov, 2013 [facility] [address] [id number] [address] [place] [address], [place] [address] Nov, [facility] [address] [id number] [address] [place] [address], [place] [address] Sep, [facility] [address] [id number] [address] [place] [address], [place] [address] Sep, [facility] [address] [id number] [address] [place] [address], [place] [address] Sep, [facility] [address] [id number] [address] [place] [address], [place] [address] Sep, [facility] [address] [id number] [address] [place] [address], [place] [address] Jun, [facility] [address] [id number] [address] [place] [address], [place] [address] Jun, [facility] [address] [id number] [address] [place] [address], [place] [address] Jun, [facility] [address] [id number] [address] [place] [address], [place] [address] Jun, [facility] [address] [id number] [address] [place] [address], [place] [address] May, [facility] [address] [id number] [address] [place] [address], [place] [address] May, [facility] [address] [id number] [address] [place] [address], [place] [address] Apr, [facility] [address] [id number] [address] [place] [address], [place] [address] Mar, [facility] [address] [id number] [address] [place] [address], [place] [address] Mar, [facility] [address] [id number] [address] [place] [address], [place] [address] Mar, [facility] [address] [id number] [address] [place] [address], [place] [address] Mar, [facility] [address] [id number] [address] [place] [address], [place] [address] Mar, [facility] [address] [id number] [address] [place] [address], [place] [address] Jan, [facility] [address] [id number] [address] [place] [address], [place] [address] Jan, [facility] [address] [id number] [address] [place] [address], [place] [address] Jan, [facility] [address] [id number] [address] [place] [address], [place] [address] December, [facility] [address] [id number] [address] [place] [address], [place] [address] Oct, [facility] [address] [id number] [address] [place] [address], [place] [address] Oct, [facility] [address] [id number] [address] [place] [address], [place] [address] Oct, [facility] [address] [id number] [address] [place] [address], [place] [address] Oct, [facility] [address] [id number] [address] [place] [address], [place] [address] Aug, [facility] [address] [id number] [address] [place] [address], [place] [address] 16 Jun, 2012 [facility] [address] [id number] [address] [place] [address], [place] [address] 16 Jun, 2012 [facility] [address] [id number] [address] [place] [address], [place] [address] 14 Jun, 2012 [facility] [address] [id number] [address] [place] [address], [place] [address] 14 Jun, 2012 [facility] [address] [id number] [address] [place] [address], [place] [address] May, [facility] [address] [id number] [address] [place] [address], [place] [address] Apr, [facility] [address] [id number] [address] [place] [address], [place] [address] Mar, [facility] [address] [id number] [address] [place] [address], [place] [address] Jan, [facility] [address] [id number] [address] [place] [address], [place] [address] Jan, [facility] [address] [id number] [address] [place] [address], [place] [address] December, [facility] [address] [id number] [address] [place] [address], [place] [address] December, [facility] [address] [id number] [address] [place] [address], [place] [address] December, [facility] [address] [id number] [address] [place] [address], [place] [address] December, [facility] [address] [id number] [address] [place] [address], [place] [address] Nov, [facility] [address] [id number] [address] [place] [address], [place] [address] Oct, [facility] [address] [id number] [address] [place] [address], [place] [address] Sep, [facility] [address] [id number] [address] [place] [address], [place] [address] Sep, [facility] [address] [id number] [address] [place] [address], [place] [address] Sep, [facility] [address] [id number] [address] [place] [address], [place] [address] Sep, [facility] [address] [id number] [address] [place] [address], [place] [address] Aug, [facility] [address] [facility] [id number] [address] [place] [address] Jun, [facility] [address] [facility] [id number] [address] [place] [address] May, [facility] [address] [facility] [id number] [address] [place] [address] Mar, [facility] [address] [facility] [id number] [address] [place] [address] Jun, [facility] [address] [facility] [id number] [address] [place] [address] May, [facility] [address] [facility] [id number] [address] [place] [address] May, IMMUNIZATIONS No Known Immunizations SOCIAL HISTORY Never Assessed REASON FOR VISIT wound dressing- removed old dressing from right inner thigh, cleansed the area w ith ns and gauze, placed silvadine on the wound and covered with a silicone band age. told pt to return on Thursday- Simba Pablo RN PLAN OF [...]
--- OUTSIDE RECORDS SUMMARY | 2020-02-21 11:46 | XMS REPORT ---
Author Author Tarik POTTS Organization [facility] Address [address] [place] [address] Care Team Providers Care Baker Bread Name Role Phone ROMA POTTS Unavailable PROBLEMS Type Condition ICD9-CM Code JPZ29-OH Code Onset Dates Condition S tatus SNOMED Code Problem Osteopenia after menopause M81.0 Act mode 818749846 Problem Hearing loss of both ears H91.93 Acti ve 16161304 Problem Acquired hypothyroidism E03.9 Active 234776248 Problem Hyperlipidemia, unspecified hyperlipidemia type E7 8.5 Active 16690053 Problem Post menopausal syndrome N95.1 Activ e 878593891 Problem Pure hypercholesterolemia E78.0 Acti ve 586211117 Problem Gastroesophageal reflux disease without esophagitis K21.9 Active 674557999 Problem Depression, major, 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 Active 11013884 Problem Pressure injury of left buttock, stage 2 L89.322 Active [id number] ALLERGIES No Information ENCOUNTERS Encounter Location Date Diagnosis [place] [address] [facility] [id number] [address] [place] [address] May, [place] [address] [facility] [id number] [address] [place] [phone] May, [place] [address] [place] [id number] [address] [place] [phone] Mar, [place] [address] [facility] [id number] [address] [place] [phone] Jan, Depression, major, in remiss ion F32.5 and Morbid obesity E66.01 [place] [address] [facility] [id number] [address] [place] [address] Jan, Encounter for Medicare annua l wellness exam Z00.00 ; Hyperlipidemia, unspecified hyperlipidemia type E78.5 ; Depression, major, 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 ; Gastroesophageal reflux disease without esophagitis K21.9 ; Acquired hypothyroidism E03.9 ; Hearing loss of both ears H91.93 ; Post menopausal syndrome N95.1 and Morbid obesity E66.01 [facility] [address] [id number] [address] [place] [address] Jan, Hyperlipidemia, unspecified hyperlipidemia type E78.5 and Morbid obesity E66.01 [facility] [address] [id number] [address] [place] [address] Jan, [facility] [address] [id number] [address] [place] [address] December, [facility] [address] [id number] [address] [place] [phone] December, [facility] [address] [id number] [address] [place] [address] December, [facility] [address] [id number] [address] [place] [address] December, Wound of left lower extremit y, subsequent encounter S81.802D [facility] [address] [id number] [address] [place] [phone] Nov, [facility] [address] [id number] [address] [place] [address] Nov, Blister of left lower extrem ity without infection, initial encounter S80.822A and Morbid obesity E66.01 [facility] [address] [id number] [address] [place] [address] Nov, [facility] [address] [id number] [address] [place] [address] Nov, [facility] [address] [id number] [address] [place] [address] Nov, [facility] [address] [id number] [address] [place] [address] Nov, [facility] [address] [id number] [address] [place] [phone] Nov, [facility] [address] [id number] [address] [place] [address] Nov, [facility] [address] [id number] [address] [place] [address] Oct, [facility] [address] [facility] [id number] [address] [place] [address] Oct, Depression, major, in remiss ion F32.5 [facility] [address] [id number] [address] [place] [phone] Oct, [facility] [address] [id number] [address] [place] [phone] Oct, [facility] [address] [facility] [id number] [address] [place] [address] Oct, [facility] [address] [facility] [id number] [address] [place] [address] Oct, Morbid obesity E66.01 and Pr essure injury of left buttock, stage 2 L89.322 [facility] [address] [id number] [address] [place] [phone] Oct, [facility] [address] [facility] [id number] [address] [place] [phone] Oct, [facility] [address] [facility] [id number] [address] [place] [address] Oct, [facility] [address] [facility] [id number] [address] [place] [address] Oct, Pressure injury of other sit e, stage 2 L89.892 and Morbid obesity E66.01 [facility] [address] [id number] [address] [place] [address] Sep, Cellulitis of other specifie d site L03.818 and BMI 40.0-44.9, adult Z68.41 [place] [address] [facility] [id number] [address] [place] [address] 13 Sep, 2018 Scab R23.4 and BMI 40.0-44.9 , adult Z68.41 [facility] [address] [facility] [id number] [address] [place] [address] Jun, Major depression in remissio n F32.5 [facility] [address] [facility] [id number] [address] [place] [address] Apr, [facility] [address] [facility] [id number] [address] [place] [address] Apr, Encounter for breast cancer screening other than mammogram Z12.39 ; Encounter for immunization Z23 and Colon cancer screening Z12.11 [place] [address] [facility] [id number] [address] [place] [address] Mar, Major depression in partial remission F32.4 and BMI 40.0-44.9, adult Z68.41 [facility] [address] [facility] [id number] [address] [place] [address] Mar, [place] [address] [facility] [id number] [address] [place] [address] Mar, Acquired hypothyroidism E03. 9 [facility] [address] [facility] [id number] [address] [place] [address] Mar, Pain in left knee M25.562 ; Other chronic pain G89.29 and Gastroesophageal reflux disease without esophagitis K21.9 [facility] [address] [facility] [id number] [address] [place] [phone] Jan, [facility] [address] [facility] [id number] [address] [place] [address] Jan, Acquired hypothyroidism E03. 9 [facility] [address] [facility] [id number] [address] [place] [phone] Jan, [facility] [address] [facility] [id number] [address] [place] [phone] Jan, Acquired hypothyroidism E03. 9 [facility] [address] [facility] [id number] [address] [place] [phone] December, Major depressive disorder in full remission, unspecified whether recurrent F32.5 [facility] [address] [id number] [address] [place] [address] Nov, Acquired hypothyroidism E03. 9 [facility] [address] [facility] [id number] [address] [place] [phone] Nov, Pure hypercholesterolemia E7 8.0 ; Peripheral edema R60.9 and Acquired hypothyroidism E03.9 [place] [address] [facility] [id number] [address] [place] [phone] Oct, Mild acid reflux K21.9 [facility] [address] [facility] [id number] [address] [place] [phone] Sep, Major depressive disorder, s glenny episode, in partial remission F32.4 and Long-term use of high-risk medication Z79.899 [place] [address] [facility] [id number] [address] [place] [address] Aug, Encounter for immunization Z 23 [place] [address] [facility] [id number] [address] [place] [address] Jul, [place] [address] [facility] [id number] [address] [place] [address] Jun, Medicare annual wellness vis it, initial Z00.00 ; BMI 40.0-44.9, adult Z68.41 and Encounter for immunization Z23 [facility] [address] [facility] [id number] [address] [place] [phone] May, [place] [address] [facility] [id number] [address] [place] [address] May, Encounter for immunization Z 23 [facility] [address] [facility] [id number] [address] [place] [address] May, Major depression in partial remission F32.4 [facility] [address] [facility] [id number] [address] [place] [address] Apr, Hearing loss H91.90 ; Encoun ter for immunization Z23 and Encounter for screening mammogram for breast cancer Z12.31 [facility] [address] [facility] [id number] [address] [place] [phone] Mar, Acquired hypothyroidism E03. 9 [facility] [address] [facility] [id number] [address] [place] [phone] Jan, Acquired hypothyroidism E03. 9 [facility] [address] [facility] [id number] [address] [place] [address] Jan, Acute midline low back pain without sciatica M54.5 [place] [address] [facility] [id number] [address] [place] [address] Jan, Peripheral edema R60.9 [place] [address] [facility] [id number] [address] [place] [address] Jan, Major depression in partial remission F32.4 [facility] [address] [facility] [id number] [address] [place] [address] Jan, Localized edema R60.0 [place] [address] [facility] [id number] [address] [place] [phone] Nov, Pure hypercholesterolemia E7 8.0 [place] [address] [facility] [id number] [address] [place] [address] Nov, Pure hypercholesterolemia E7 8.0 [facility] [address] [facility] [id number] [address] [place] [address] Nov, Peripheral edema R60.9 [facility] [address] [facility] [id number] [address] [place] [address] Oct, Major depression in partial remission F32.4 [facility] [address] [facility] [id number] [address] [place] [phone] Aug, [facility] [address] [facility] [id number] [address] [place] [address] Aug, Elevated blood pressure read ing R03.0 [facility] [address] [id number] [address] [place] [phone] Aug, [facility] [address] [id number] [address] [place] [phone] Jun, Major depression in partial remission F32.4 [facility] [address] [id number] [address] [place] [address] Apr, Major depressive disorder, r ecurrent episode, mild F33.0 [facility] [address] [facility] [id number] [address] [place] [phone] Mar, Encounter for well woman reta rios with routine gynecological exam Z01.419 and Breast cancer screening Z12.39 [place] [address] [facility] [id number] [address] [place] [phone] Jan, Hypothyroidism, unspecified type E03.9 [facility] [address] [id number] [address] [place] [phone] Jan, Major depressive disorder, r ecurrent episode, mild F33.0 [facility] [address] [facility] [id number] [address] [place] [phone] 30 Jan, 2016 Abscess L02.91 [place] [address] [facility] [id number] [address] [place] [address] Jan, Furuncle L02.92 [place] [address] [facility] [id number] [address] [place] [phone] 16 Jan, 2016 Major depression in partial remission F32.4 [facility] [address] [id number] [address] [place] [phone] Jan, Major depressive disorder, r ecurrent episode, mild F33.0 [facility] [address] [id number] [address] [place] [address] December, Acute bacterial conjunctivit is of left eye H10.022 [place] [address] [address] December, Major depressive disorder, r ecurrent episode, mild F33.0 [facility] [address] [address] Nov, [place] [address] [address] Nov, Major depressive disorder, r ecurrent episode, mild F33.0 [place] [address] [address] Nov, Hearing loss H91.90 [place] [address] [address] Oct, Major depression in partial remission F32.4 [place] [address] [address] Oct, Pneumonia J18.9 [facility] [address] [address] Oct, Influenza A J10.1 ; Fever, u nspecified R50.9 ; Conjunctivitis H10.9 and Cough R05 [place] [address] [address] Oct, Major depressive disorder, r ecurrent episode, severe, 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 [place] [address] [address] Aug, [place] [address] [address] Aug, Acquired hypothyroidism E03. 9 and Pure hypercholesterolemia E78.0 [place] [address] [address] Aug, Major depressive disorder, r ecurrent episode, severe, 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 [place] [address] [address] Jul, [place] [address] [facility] [id number] [address] [place] [address] Jul, Major depressive disorder, r ecurrent episode, severe, 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 [facility] [address] [facility] [id number] [address] [place] [address] Jun, Major depressive disorder, r ecurrent episode, severe, 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 [facility] [address] [facility] [id number] [address] [place] [address] May, [place] [address] [facility] [id number] [address] [place] [address] May, Major depressive disorder, r ecurrent episode, severe, 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 [place] [address] [facility] [id number] [address] [place] [address] May, Major depressive disorder, r ecurrent episode, severe, 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 [place] [address] [facility] [id number] [address] [place] [address] Apr, [place] [address] [facility] [id number] [address] [place] [address] Apr, Depressive disorder, not els ewhere classified 311 and Unspecified psychosis 298.9 [place] [address] [facility] [id number] [address] [place] [address] Apr, Depression 311 and Hard of h earing 389.9 [place] [address] [facility] [id number] [address] [place] [phone] 10 Apr, 2015 Schizoaffective disorder 295 .70 [place] [address] [facility] [id number] [address] [place] [phone] 08 Apr, 2015 Major depressive disorder, r ecurrent episode, severe, specified as with psychotic behavior 296.34 [place] [address] [facility] [id number] [address] [place] [address] Apr, Psychosis 298.9 and Depressi on 311 [place] [address] [facility] [id number] [address] [place] [address] Apr, Depressive disorder, not els ewhere classified 311 and Unspecified psychosis 298.9 [facility] [address] [id number] [address] [place] [address] Mar, Screening for cervical cance r V76.2 ; Well woman exam with routine gynecological exam V72.31 ; Colon cancer screening V76.51 ; Breast cancer screening V76.10 ; Irritable bowel syndrome 564.1 and Psychosis 298.9 [facility] [address] [id number] [address] [place] [address] Mar, Psychosis 298.9 [facility] [address] [id number] [address] [place] [address] Mar, Unspecified psychosis 298.9 [facility] [address] [id number] [address] [place] [phone] Nov, [facility] [address] [id number] [address] [place] [address] Nov, [facility] [address] [id number] [address] [place] [address] Oct, [facility] [address] [id number] [address] [place] [address] Oct, [facility] [address] [facility] [id number] [address] [place] [address] Jul, [facility] [address] [id number] [address] [place] [address] Jul, [facility] [address] [id number] [address] [place] [address] 13 May, 2014 [facility] [address] [id number] [address] [place] [address] Apr, [facility] [address] [id number] [address] [place] [phone] 11 Apr, 2014 [facility] [address] [id number] [address] [place] [address] Apr, [facility] [address] [id number] [facility] [place] [address] Apr, [facility] [address] [id number] [facility] [place] [address] Apr, [facility] [place] [facility] [address] [id number] [facility] [place] [address] Mar, [facility] [place] [facility] [address] [id number] [address] [place] [address], [place] [address] Mar, [facility] [place] [facility] [address] [id number] [facility] [place] [address] Mar, [facility] [place] [facility] [address] [id number] [address] [place] [address], [place] [address] Mar, [facility] [place] [facility] [address] [id number] [address] [place] [address], [place] [address] Mar, [facility] [place] [facility] [address] [id number] [address] [place] [address], [place] [id number] Mar, [facility] [place] [address] [id number] [address] [place] [address], [place] [address] Mar, [facility] [place] [facility] [address] [id number] [address] [place] [address], [place] [address] Mar, [facility] [place] [facility] [address] [id number] [address] [place] [address], [place] [address] Mar, [facility] [place] [facility] [address] [id number] [address] [place] [address], [place] [address] Mar, [facility] [place] [facility] [address] [id number] [address] [place] [address], [place] [address] Jan, [facility] [place] [facility] [address] [id number] [address] [place] [address], [place] [address] Jan, [facility] [place] [facility] [address] [id number] [address] [place] [address], [place] [address] December, [facility] [place] [facility] [address] [id number] [address] [place] [address] December, [facility] [address] [id number] [address] [place] [address], [place] [address] Nov, [facility] [address] [id number] [address] [place] [address], [place] [address] Nov, [facility] [address] [id number] [address] [place] [address], [place] [address] Sep, [facility] [address] [id number] [address] [place] [address], [place] [address] Sep, [facility] [address] [id number] [address] [place] [address], [place] [address] Sep, [facility] [address] [id number] [address] [place] [address], [place] [address] Sep, [facility] [address] [id number] [address] [place] [address], [place] [address] Jun, [facility] [address] [id number] [address] [place] [address], [place] [address] Jun, [facility] [address] [id number] [address] [place] [address], [place] [address] Jun, [facility] [address] [id number] [address] [place] [address], [place] [address] Jun, [facility] [address] [id number] [address] [place] [address], [place] [address] May, [facility] [address] [id number] [address] [place] [address], [place] [address] May, [facility] [address] [id number] [address] [place] [address], [place] [address] Apr, [facility] [address] [id number] [address] [place] [address], [place] [address] Mar, [facility] [address] [id number] [address] [place] [address], [place] [address] Mar, [facility] [address] [id number] [address] [place] [address], [place] [address] Mar, [facility] [address] [id number] [address] [place] [address], [place] [address] Mar, [facility] [address] [id number] [address] [place] [address], [place] [address] Mar, [facility] [address] [id number] [address] [place] [address], [place] [address] Jan, [facility] [address] [id number] [address] [place] [address], [place] [address] Jan, [facility] [address] [id number] [address] [place] [address], [place] [address] Jan, [facility] [address] [id number] [address] [place] [address], [place] [address] December, [facility] [address] [id number] [address] [place] [address], [place] [address] Oct, [facility] [address] [id number] [address] [place] [address], [place] [address] Oct, [facility] [address] [id number] [address] [place] [address], [place] [address] Oct, [facility] [address] [id number] [address] [place] [address], [place] [address] Oct, [facility] [address] [id number] [address] [place] [address], [place] [address] Aug, [facility] [address] [id number] [address] [place] [address], [place] [address] Jun, [facility] [address] [id number] [address] [place] [address], [place] [address] Jun, [facility] [address] [id number] [address] [place] [address], [place] [address] 14 Jun, 2012 [facility] [address] [id number] [address] [place] [address], [place] [address] Jun, [facility] [address] [id number] [address] [place] [address], [place] [address] May, [facility] [address] [id number] [address] [place] [address], [place] [address] Apr, [facility] [address] [id number] [address] [place] [address], [place] [address] Mar, [facility] [address] [id number] [address] [place] [address], [place] [address] Jan, [facility] [address] [id number] [address] [place] [address], [place] [address] Jan, [facility] [address] [id number] [address] [place] [address], [place] [address] December, [facility] [address] [id number] [address] [place] [address], [place] [address] December, [facility] [address] [id number] [address] [place] [address], [place] [address] December, [facility] [address] [id number] [address] [place] [address], [place] [address] December, [facility] [address] [id number] [address] [place] [address], [place] [address] Nov, [facility] [address] [id number] [address] [place] [address], [place] [address] Oct, [facility] [address] [id number] [address] [place] [address], [place] [address] Sep, [facility] [address] [id number] [address] [place] [address], [place] [address] Sep, [facility] [address] [id number] [address] [place] [address], [place] [address] Sep, [facility] [address] [id number] [address] [place] [address], [place] [address] Sep, [facility] [address] [id number] [address] [place] [id number] Aug, [facility] [address] [id number] [address] [place] [id number] Jun, [facility] [address] [id number] [address] [place] [id number] May, [facility] [address] [facility] [id number] [address] [place] [id number] Mar, [facility] [address] [facility] [id number] [address] [place] [id number] Jun, [facility] [address] [facility] [id number] [address] [place] [id number] May, [facility] [address] [facility] [id number] [address] [place] [id number] May, IMMUNIZATIONS No Known Immunizations SOCIAL HISTORY [...]
--- OUTSIDE RECORDS SUMMARY | 2020-02-21 11:46 | XMS REPORT ---
Author Author Tarik POTTS Organization [facility] Address [address] [place] [address] Care Team Providers Care Electric Fork Operator Name Role Phone ROMA POTTS Unavailable PROBLEMS Type Condition ICD9-CM Code IRY70-VH Code Onset Dates Condition S tatus SNOMED Code Problem Osteopenia after menopause M81.0 Act mode 004499580 Problem Hearing loss of both ears H91.93 Acti ve 47075871 Problem Acquired hypothyroidism E03.9 Active 560990820 Problem Hyperlipidemia, unspecified hyperlipidemia type E7 8.5 Active 21712408 Problem Post menopausal syndrome N95.1 Activ e 562887612 Problem Pure hypercholesterolemia E78.0 Acti ve 170575354 Problem Gastroesophageal reflux disease without esophagitis K21.9 Active 462285726 Problem Depression, major, 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 Active 57973911 Problem Pressure injury of left buttock, stage 2 L89.322 Active 581117918 ALLERGIES No Information ENCOUNTERS Encounter Location Date Diagnosis [place] [address] [facility] [id number] [address] [place] [id number] May, [place] [address] [facility] [id number] [address] [place] [id number] May, [place] [address] [place] [id number] [address] [place] [id number] Mar, [place] [address] [facility] [id number] [address] [place] [id number] Jan, Depression, major, in remiss ion F32.5 and Morbid obesity E66.01 [place] [address] [facility] [id number] [address] [place] [id number] Jan, Encounter for Medicare annua l wellness exam Z00.00 ; Hyperlipidemia, unspecified hyperlipidemia type E78.5 ; Depression, major, 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 ; Gastroesophageal reflux disease without esophagitis K21.9 ; Acquired hypothyroidism E03.9 ; Hearing loss of both ears H91.93 ; Post menopausal syndrome N95.1 and Morbid obesity E66.01 [facility] [address] [id number] [address] [place] [id number] Jan, Hyperlipidemia, unspecified hyperlipidemia type E78.5 and Morbid obesity E66.01 [facility] [address] [id number] [address] [place] [id number] Jan, [facility] [address] [id number] [address] [place] [id number] December, [facility] [address] [id number] [address] [place] [id number] December, [facility] [address] [id number] [address] [place] [id number] December, [facility] [address] [id number] [address] [place] [id number] December, Wound of left lower extremit y, subsequent encounter S81.802D [facility] [address] [id number] [address] [place] [id number] Nov, [facility] [address] [id number] [address] [place] [id number] Nov, Blister of left lower extrem ity without infection, initial encounter S80.822A and Morbid obesity E66.01 [facility] [address] [id number] [address] [place] [id number] Nov, [facility] [address] [id number] [address] [place] [id number] Nov, [facility] [address] [id number] [address] [place] [id number] Nov, [facility] [address] [id number] [address] [place] [id number] Nov, [facility] [address] [id number] [address] [place] [id number] Nov, [facility] [address] [id number] [address] [place] [id number] Nov, [facility] [address] [id number] [address] [place] [id number] Oct, [facility] [address] [facility] [id number] [address] [place] [id number] Oct, Depression, major, in remiss ion F32.5 [facility] [address] [id number] [address] [place] [id number] Oct, [facility] [address] [id number] [address] [place] [id number] Oct, [facility] [address] [facility] [id number] [address] [place] [id number] Oct, [facility] [address] [facility] [id number] [address] [place] [id number] Oct, Morbid obesity E66.01 and Pr essure injury of left buttock, stage 2 L89.322 [facility] [address] [id number] [address] [place] [id number] Oct, [facility] [address] [facility] [id number] [address] [place] [id number] Oct, [facility] [address] [facility] [id number] [address] [place] [id number] Oct, [facility] [address] [facility] [id number] [address] [place] [id number] Oct, Pressure injury of other sit e, stage 2 L89.892 and Morbid obesity E66.01 [facility] [address] [id number] [address] [place] [id number] Sep, Cellulitis of other specifie d site L03.818 and BMI 40.0-44.9, adult Z68.41 [place] [address] [facility] [id number] [address] [place] [id number] 13 Sep, 2018 Scab R23.4 and BMI 40.0-44.9 , adult Z68.41 [facility] [address] [facility] [id number] [address] [place] [id number] Jun, Major depression in remissio n F32.5 [facility] [address] [facility] [id number] [address] [place] [id number] Apr, [facility] [address] [facility] [id number] [address] [place] [id number] Apr, Encounter for breast cancer screening other than mammogram Z12.39 ; Encounter for immunization Z23 and Colon cancer screening Z12.11 [place] [address] [facility] [id number] [address] [place] [id number] Mar, Major depression in partial remission F32.4 and BMI 40.0-44.9, adult Z68.41 [facility] [address] [facility] [id number] [address] [place] [id number] Mar, [place] [address] [facility] [id number] [address] [place] [id number] Mar, Acquired hypothyroidism E03. 9 [facility] [address] [facility] [id number] [address] [place] [id number] Mar, Pain in left knee M25.562 ; Other chronic pain G89.29 and Gastroesophageal reflux disease without esophagitis K21.9 [facility] [address] [facility] [id number] [address] [place] [id number] Jan, [facility] [address] [facility] [id number] [address] [place] [id number] Jan, Acquired hypothyroidism E03. 9 [facility] [address] [facility] [id number] [address] [place] [id number] Jan, [facility] [address] [facility] [id number] [address] [place] [id number] Jan, Acquired hypothyroidism E03. 9 [facility] [address] [facility] [id number] [address] [place] [id number] December, Major depressive disorder in full remission, unspecified whether recurrent F32.5 [facility] [address] [id number] [address] [place] [id number] Nov, Acquired hypothyroidism E03. 9 [facility] [address] [facility] [id number] [address] [place] [id number] Nov, Pure hypercholesterolemia E7 8.0 ; Peripheral edema R60.9 and Acquired hypothyroidism E03.9 [place] [address] [facility] [id number] [address] [place] [id number] Oct, Mild acid reflux K21.9 [facility] [address] [facility] [id number] [address] [place] [id number] Sep, Major depressive disorder, s glenny episode, in partial remission F32.4 and Long-term use of high-risk medication Z79.899 [place] [address] [facility] [id number] [address] [place] [id number] Aug, Encounter for immunization Z 23 [place] [address] [facility] [id number] [address] [place] [id number] Jul, [place] [address] [facility] [id number] [address] [place] [id number] Jun, Medicare annual wellness vis it, initial Z00.00 ; BMI 40.0-44.9, adult Z68.41 and Encounter for immunization Z23 [facility] [address] [facility] [id number] [address] [place] [id number] May, [place] [address] [facility] [id number] [address] [place] [id number] May, Encounter for immunization Z 23 [facility] [address] [facility] [id number] [address] [place] [id number] May, Major depression in partial remission F32.4 [facility] [address] [facility] [id number] [address] [place] [id number] Apr, Hearing loss H91.90 ; Encoun ter for immunization Z23 and Encounter for screening mammogram for breast cancer Z12.31 [facility] [address] [facility] [id number] [address] [place] [id number] Mar, Acquired hypothyroidism E03. 9 [facility] [address] [facility] [id number] [address] [place] [id number] Jan, Acquired hypothyroidism E03. 9 [facility] [address] [facility] [id number] [address] [place] [id number] Jan, Acute midline low back pain without sciatica M54.5 [place] [address] [facility] [id number] [address] [place] [id number] Jan, Peripheral edema R60.9 [place] [address] [facility] [id number] [address] [place] [id number] Jan, Major depression in partial remission F32.4 [facility] [address] [facility] [id number] [address] [place] [id number] Jan, Localized edema R60.0 [place] [address] [facility] [id number] [address] [place] [id number] Nov, Pure hypercholesterolemia E7 8.0 [place] [address] [facility] [id number] [address] [place] [id number] Nov, Pure hypercholesterolemia E7 8.0 [facility] [address] [facility] [id number] [address] [place] [id number] Nov, Peripheral edema R60.9 [facility] [address] [facility] [id number] [address] [place] [id number] Oct, Major depression in partial remission F32.4 [facility] [address] [facility] [id number] [address] [place] [id number] Aug, [facility] [address] [facility] [id number] [address] [place] [id number] Aug, Elevated blood pressure read ing R03.0 [facility] [address] [id number] [address] [place] [id number] Aug, [facility] [address] [id number] [address] [place] [id number] Jun, Major depression in partial remission F32.4 [facility] [address] [id number] [address] [place] [id number] Apr, Major depressive disorder, r ecurrent episode, mild F33.0 [facility] [address] [facility] [id number] [address] [place] [id number] Mar, Encounter for well woman reta rios with routine gynecological exam Z01.419 and Breast cancer screening Z12.39 [place] [address] [facility] [id number] [address] [place] [id number] Jan, Hypothyroidism, unspecified type E03.9 [facility] [address] [id number] [address] [place] [id number] Jan, Major depressive disorder, r ecurrent episode, mild F33.0 [facility] [address] [facility] [id number] [address] [place] [id number] 30 Jan, 2016 Abscess L02.91 [place] [address] [facility] [id number] [address] [place] [id number] Jan, Furuncle L02.92 [place] [address] [facility] [id number] [address] [place] [id number] 16 Jan, 2016 Major depression in partial remission F32.4 [facility] [address] [id number] [address] [place] [id number] Jan, Major depressive disorder, r ecurrent episode, mild F33.0 [facility] [address] [id number] [address] [place] [id number] December, Acute bacterial conjunctivit is of left eye H10.022 [place] [address] [id number] December, Major depressive disorder, r ecurrent episode, mild F33.0 [facility] [address] [id number] Nov, [place] [address] [id number] Nov, Major depressive disorder, r ecurrent episode, mild F33.0 [place] [address] [id number] Nov, Hearing loss H91.90 [place] [address] [id number] Oct, Major depression in partial remission F32.4 [place] [address] [id number] Oct, Pneumonia J18.9 [facility] [address] [id number] Oct, Influenza A J10.1 ; Fever, u nspecified R50.9 ; Conjunctivitis H10.9 and Cough R05 [place] [address] [id number] Oct, Major depressive disorder, r ecurrent episode, severe, 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 [place] [address] [address] Aug, [place] [address] [id number] Aug, Acquired hypothyroidism E03. 9 and Pure hypercholesterolemia E78.0 [place] [address] [id number] Aug, Major depressive disorder, r ecurrent episode, severe, 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 [place] [address] [id number] Jul, [place] [address] [facility] [id number] [address] [place] [id number] Jul, Major depressive disorder, r ecurrent episode, severe, 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 [facility] [address] [facility] [id number] [address] [place] [id number] Jun, Major depressive disorder, r ecurrent episode, severe, 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 [facility] [address] [facility] [id number] [address] [place] [id number] May, [place] [address] [facility] [id number] [address] [place] [id number] May, Major depressive disorder, r ecurrent episode, severe, 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 [place] [address] [facility] [id number] [address] [place] [id number] May, Major depressive disorder, r ecurrent episode, severe, 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 [place] [address] [facility] [id number] [address] [place] [id number] Apr, [place] [address] [facility] [id number] [address] [place] [id number] Apr, Depressive disorder, not els ewhere classified 311 and Unspecified psychosis 298.9 [place] [address] [facility] [id number] [address] [place] [id number] Apr, Depression 311 and Hard of h earing 389.9 [place] [address] [facility] [id number] [address] [place] [id number] 10 Apr, 2015 Schizoaffective disorder 295 .70 [place] [address] [facility] [id number] [address] [place] [id number] 08 Apr, 2015 Major depressive disorder, r ecurrent episode, severe, specified as with psychotic behavior 296.34 [place] [address] [facility] [id number] [address] [place] [id number] Apr, Psychosis 298.9 and Depressi on 311 [place] [address] [facility] [id number] [address] [place] [id number] Apr, Depressive disorder, not els ewhere classified 311 and Unspecified psychosis 298.9 [facility] [address] [id number] [address] [place] [id number] Mar, Screening for cervical cance r V76.2 ; Well woman exam with routine gynecological exam V72.31 ; Colon cancer screening V76.51 ; Breast cancer screening V76.10 ; Irritable bowel syndrome 564.1 and Psychosis 298.9 [facility] [address] [id number] [address] [place] [id number] Mar, Psychosis 298.9 [facility] [address] [id number] [address] [place] [id number] Mar, Unspecified psychosis 298.9 [facility] [address] [id number] [address] [place] [id number] Nov, [facility] [address] [id number] [address] [place] [id number] Nov, [facility] [address] [id number] [address] [place] [id number] Oct, [facility] [address] [id number] [address] [place] [id number] Oct, [facility] [address] [facility] [id number] [address] [place] [id number] Jul, [facility] [address] [id number] [address] [place] [id number] Jul, [facility] [address] [id number] [address] [place] [id number] 13 May, 2014 [facility] [address] [id number] [address] [place] [id number] Apr, [facility] [address] [id number] [address] [place] [id number] 11 Apr, 2014 [facility] [address] [id number] [address] [place] [id number] Apr, [facility] [address] [id number] [facility] [place] [address] Apr, [facility] [place] [facility] [address] [id number] [facility] [place] [address] Apr, [facility] [place] [facility] [address] [id number] [facility] [place] [address] Mar, [facility] [place] [facility] [address] [id number] [address] [place] [address], [place] [address] Mar, [facility] [place] [facility] [address] [id number] [facility] [place] [address] Mar, [facility] [place] [facility] [address] [id number] [address] [place] [address], [place] [address] Mar, [facility] [place] [facility] [address] [id number] [address] [place] [address], [place] [address] Mar, [facility] [place] [facility] [address] [id number] [address] [place] [address], [place] [address] Mar, [facility] [place] [facility] [address] [id number] [address] [place] [address], [place] [address] Mar, [facility] [place] [facility] [address] [id number] [address] [place] [address], [place] [address] Mar, [facility] [place] [facility] [address] [id number] [address] [place] [address], [place] [address] Mar, [facility] [place] [facility] [address] [id number] [address] [place] [address], [place] [address] Mar, [facility] [place] [facility] [address] [id number] [address] [place] [address], [place] [address] Jan, [facility] [place] [facility] [address] [id number] [address] [place] [address], [place] [address] Jan, [facility] [place] [facility] [address] [id number] [address] [place] [address], [place] [address] December, [facility] [place] [facility] [address] [id number] [address] [place] [address] December, [facility] [address] [id number] [address] [place] [address], [place] [address] Nov, [facility] [address] [id number] [address] [place] [address], [place] [address] Nov, [facility] [address] [id number] [address] [place] [address], [place] [address] Sep, [facility] [address] [id number] [address] [place] [address], [place] [address] Sep, [facility] [address] [id number] [address] [place] [address], [place] [address] Sep, [facility] [address] [id number] [address] [place] [address], [place] [address] Sep, [facility] [address] [id number] [address] [place] [address], [place] [address] Jun, [facility] [address] [id number] [address] [place] [address], [place] [address] Jun, [facility] [address] [id number] [address] [place] [address], [place] [address] Jun, [facility] [address] [id number] [address] [place] [address], [place] [address] Jun, [facility] [address] [id number] [address] [place] [address], [place] [address] May, [facility] [address] [id number] [address] [place] [address], [place] [address] May, [facility] [address] [id number] [address] [place] [address], [place] [address] Apr, [facility] [address] [id number] [address] [place] [address], [place] [address] Mar, [facility] [address] [id number] [address] [place] [address], [place] [address] Mar, [facility] [address] [id number] [address] [place] [address], [place] [address] Mar, [facility] [address] [id number] [address] [place] [address], [place] [address] Mar, [facility] [address] [id number] [address] [place] [address], [place] [address] Mar, [facility] [address] [id number] [address] [place] [address], [place] [address] Jan, [facility] [address] [id number] [address] [place] [address], [place] [address] Jan, [facility] [address] [id number] [address] [place] [address], [place] [address] Jan, [facility] [address] [id number] [address] [place] [address], [place] [address] December, [facility] [address] [id number] [address] [place] [address], [place] [address] Oct, [facility] [address] [id number] [address] [place] [address], [place] [address] Oct, [facility] [address] [id number] [address] [place] [address], [place] [address] Oct, [facility] [address] [id number] [address] [place] [address], [place] [address] Oct, [facility] [address] [id number] [address] [place] [address], [place] [address] Aug, [facility] [address] [id number] [address] [place] [address], [place] [address] Jun, [facility] [address] [id number] [address] [place] [address], [place] [address] Jun, [facility] [address] [id number] [address] [place] [address], [place] [address] 14 Jun, 2012 [facility] [address] [id number] [address] [place] [address], [place] [address] Jun, [facility] [address] [id number] [address] [place] [address], [place] [address] May, [facility] [address] [id number] [address] [place] [address], [place] [address] Apr, [facility] [address] [id number] [address] [place] [address], [place] [address] Mar, [facility] [address] [id number] [address] [place] [address], [place] [address] Jan, [facility] [address] [id number] [address] [place] [address], [place] [address] Jan, [facility] [address] [id number] [address] [place] [address], [place] [address] December[facility] [facility] [address] [id number] [address] [place] [address], [place] [address] December, [facility] [address] [id number] [address] [place] [address], [place] [id number] December, [facility] [address] [id number] [address] [place] [address], [place] [address] December, [facility] [address] [id number] [address] [place] [address], [place] [address] Nov, [facility] [address] [id number] [address] [place] [address], [place] [address] Oct, [facility] [address] [id number] [address] [place] [address], [place] [address] Sep, [facility] [address] [id number] [address] [place] [address], [place] [address] Sep, [facility] [address] [id number] [address] [place] [address], [place] [address] Sep, [facility] [address] [id number] [address] [place] [address], [place] [address] Sep, [facility] [address] [id number] [address] [place] [id number] Aug, [facility] [address] [id number] [address] [place] [id number] Jun, [facility] [address] [id number] [address] [place] [id number] May, [facility] [address] [facility] [id number] [address] [place] [id number] Mar, [facility] [address] [facility] [id number] [address] [place] [id number] Jun, [facility] [address] [facility] [id number] [address] [place] [id number] May, [facility] [address] [facility] [id number] [address] [place] [id number] May, IMMUNIZATIONS No Known Immunizations SOCIAL HISTORY [...]
--- OUTSIDE RECORDS SUMMARY | 2020-02-21 11:46 | XMS REPORT ---
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 Name Role Phone ROMA POTTS Unavailable PROBLEMS Type Condition ICD9-CM Code [id number] Code Onset Dates Condition S tatus SNOMED Code Problem Hearing loss of both ears H91.93 Acti ve 17795170 Problem Acquired hypothyroidism E03.9 Active 751132707 Problem Hyperlipidemia, unspecified hyperlipidemia type E7 8.5 Active 63356870 Problem Post menopausal syndrome N95.1 Activ e 545369912 Problem Pure hypercholesterolemia E78.0 Acti ve 762791784 Problem Gastroesophageal reflux disease without esophagitis K21.9 Active 555211499 Problem Depression, major, 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 Active 44375521 Problem Pressure injury of left buttock, stage 2 L89.322 Active [id number] ALLERGIES No Information ENCOUNTERS Encounter Location Date Diagnosis [place] [address] [place] [id number] [address] [place] [phone] May, [place] [id number] [address] [place] [address] Jan, Depression, major, in remiss ion F32.5 and Morbid obesity E66.01 [place] [address] [place] [id number] [address] [place] [address] Jan, Encounter for Medicare annua l wellness exam Z00.00 ; Hyperlipidemia, unspecified hyperlipidemia type E78.5 ; Depression, major, 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 ; Gastroesophageal reflux disease without esophagitis K21.9 ; Acquired hypothyroidism E03.9 ; Hearing loss of both ears H91.93 ; Post menopausal syndrome N95.1 and Morbid obesity E66.01 [place] [address] [place] [id number] [address] [place] [address] Jan, Hyperlipidemia, unspecified hyperlipidemia type E78.5 and Morbid obesity E66.01 [facility] [address] [id number] [address] [place] [phone] Jan, [facility] [address] [id number] [address] [place] [address] December, [facility] [address] [id number] [address] [place] [address] December, [facility] [address] [id number] [address] [place] [address] December, [facility] [address] [id number] [address] [place] [address] December, Wound of left lower extremit y, subsequent encounter S81.802D [facility] [address] [id number] [address] [place] [address] Nov, [facility] [address] [id number] [address] [place] [address] Nov, Blister of left lower extrem ity without infection, initial encounter S80.822A and Morbid obesity E66.01 [facility] [address] [id number] [address] [place] [address] Nov, [facility] [address] [id number] [address] [place] [address] Nov, [facility] [address] [id number] [address] [place] [address] Nov, [facility] [address] [id number] [address] [place] [address] Nov, [facility] [address] [id number] [address] [place] [address] Nov, [facility] [address] [id number] [address] [place] [address] Nov, [facility] [address] [id number] [address] [place] [address] Oct, [facility] [address] [facility] [id number] [address] [place] [address] Oct, Depression, major, in remiss ion F32.5 [facility] [address] [facility] [id number] [address] [place] [address] Oct, [facility] [address] [facility] [id number] [address] [place] [address] Oct, [facility] [address] [facility] [id number] [address] [place] [address] Oct, [facility] [address] [place] [id number] [address] [place] [address] Oct, Morbid obesity E66.01 and Pr essure injury of left buttock, stage 2 L89.322 [facility] [address] [place] [id number] [address] [place] [address] Oct, [facility] [address] [place] [id number] [address] [place] [address] Oct, [facility] [address] [place] [id number] [address] [place] [address] Oct, [facility] [address] [place] [id number] [address] [place] [address] Oct, Pressure injury of other sit e, stage 2 L89.892 and Morbid obesity E66.01 [facility] [address] [facility] [id number] [address] [place] [address] Sep, Cellulitis of other specifie d site L03.818 and BMI 40.0-44.9, adult Z68.41 [facility] [address] [place] [id number] [address] [place] [address] Sep, Scab R23.4 and BMI 40.0-44.9 , adult Z68.41 [facility] [address] [place] [id number] [address] [place] [phone] Jun, Major depression in [facility] n F32.5 [facility] [address] [facility] [id number] [address] [place] [address] Apr, [facility] [address] [facility] [id number] [address] [place] [address] Apr, Encounter for breast cancer screening other than mammogram Z12.39 ; Encounter for immunization Z23 and Colon cancer screening Z12.11 [facility] [address] [id number] [address] [place] [address] Mar, Major depression in partial remission F32.4 and BMI 40.0-44.9, adult Z68.41 [place] [address] [facility] [id number] [address] [place] [address] Mar, [place] [address] [facility] [id number] [address] [place] [address] Mar, Acquired hypothyroidism E03. 9 [facility] [address] [facility] [id number] [address] [place] [address] Mar, Pain in left knee M25.562 ; Other chronic pain G89.29 and Gastroesophageal reflux disease without esophagitis K21.9 [facility] [address] [facility] [id number] [address] [place] [phone] Jan, [place] [address] [facility] [id number] [address] [place] [address] Jan, Acquired hypothyroidism E03. 9 [facility] [address] [facility] [id number] [address] [place] [phone] Jan, [facility] [address] [facility] [id number] [address] [place] [address] Jan, Acquired hypothyroidism E03. 9 [facility] [address] [facility] [id number] [address] [place] [phone] December, Major depressive disorder in full remission, unspecified whether recurrent F32.5 [facility] [address] [facility] [id number] [address] [place] [address] Nov, Acquired hypothyroidism E03. 9 [place] [address] [place] [id number] [address] [place] [address] Nov, Pure hypercholesterolemia E7 8.0 ; Peripheral edema R60.9 and Acquired hypothyroidism E03.9 [place] [address] [place] [id number] [address] [place] [address] Oct, Mild acid reflux K21.9 [place] [address] [place] [id number] [place] [address] Sep, Major depressive disorder, s glenny episode, in partial remission F32.4 and Long-term use of high-risk medication Z79.899 [place] [address] [address] Aug, Encounter for immunization Z 23 [place] [address] [address] Jul, [place] [address] [address] Jun, Medicare annual wellness vis it, initial Z00.00 ; BMI 40.0-44.9, adult Z68.41 and Encounter for immunization Z23 [place] [address] [place] [id number] [place] [address] May, [place] [address] [place] [id number] [place] [address] May, Encounter for immunization Z 23 [place] [address] [place] [id number] [place] [address] May, Major depression in partial remission F32.4 [place] [id number] [place] [address] Apr, Hearing loss H91.90 ; Encoun ter for immunization Z23 and Encounter for screening mammogram for breast cancer Z12.31 [place] [address] [place] [id number] [address] [place] [address] Mar, Acquired hypothyroidism E03. 9 [facility] [address] [id number] [address] [place] [address] Jan, Acquired hypothyroidism E03. 9 [facility] [address] [id number] [address] [place] [phone] Jan, Acute midline low back pain without sciatica M54.5 [facility] [address] [facility] [id number] [address] [place] [address] Jan, Peripheral edema R60.9 [facility] [address] [id number] [address] [place] [address] Jan, Major depression in partial remission F32.4 [facility] [address] [id number] [address] [place] [address] Jan, Localized edema R60.0 [facility] [address] [id number] [address] [place] [address] Nov, Pure hypercholesterolemia E7 8.0 [facility] [address] [id number] [address] [place] [address] Nov, Pure hypercholesterolemia E7 8.0 [facility] [address] [facility] [id number] [address] [place] [address] Nov, Peripheral edema R60.9 [facility] [address] [id number] [address] [place] [phone] Oct, Major depression in partial remission F32.4 [facility] [address] [id number] [address] [place] [address] Aug, [facility] [address] [id number] [address] [place] [address] Aug, Elevated blood pressure read ing R03.0 [facility] [address] [facility] [id number] [address] [place] [phone] Aug, [facility] [address] [facility] [id number] [address] [place] [phone] Jun, Major depression in partial remission F32.4 [facility] [address] [id number] [address] [place] [address] 12 Apr, 2016 Major depressive disorder, r ecurrent episode, mild F33.0 [facility] [address] [id number] [address] [place] [address] Mar, Encounter for well woman reta m with routine gynecological exam Z01.419 and Breast cancer screening Z12.39 [facility] [address] [id number] [address] [place] [address] Jan, Hypothyroidism, unspecified type E03.9 [facility] [address] [id number] [address] [place] [address] Jan, Major depressive disorder, r ecurrent episode, mild F33.0 [facility] [address] [id number] [address] [place] [address] Jan, Abscess L02.91 [facility] [address] [facility] [id number] [address] [place] [address] Jan, Furuncle L02.92 [place] [address] [facility] [id number] [address] [place] [address] Jan, Major depression in partial remission F32.4 [facility] [address] [id number] [address] [place] [address] Jan, Major depressive disorder, r ecurrent episode, mild F33.0 [facility] [address] [id number] [address] [place] [address] December, Acute bacterial conjunctivit is of left eye H10.022 [facility] [address] [id number] [address] [place] [address] December, Major depressive disorder, r ecurrent episode, mild F33.0 [facility] [address] [id number] [address] [place] [address] Nov, [facility] [address] [id number] [address] [place] [address] Nov, Major depressive disorder, r ecurrent episode, mild F33.0 [facility] [address] [place] [id number] [address] [place] [address] Nov, Hearing loss H91.90 [facility] [address] [place] [id number] [address] [place] [id number] 17 Oct, 2015 Major depression in partial remission F32.4 [facility] [id number] [place] [address] 15 Oct, 2015 Pneumonia J18.9 [facility] [address] [place] [address] Oct, Influenza A J10.1 ; Fever, u nspecified R50.9 ; Conjunctivitis H10.9 and Cough R05 [place] [address] [place] [phone] Oct, Major depressive disorder, r ecurrent episode, severe, 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 [place] [address] [place] [address] Aug, [place] [address] [address] Aug, Acquired hypothyroidism E03. 9 and Pure hypercholesterolemia E78.0 [facility] [address] [place] [id number] [address] [place] [phone] Aug, Major depressive disorder, r ecurrent episode, severe, 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 [place] [address] [place] [id number] [address] [place] [address] Jul, [place] [address] [place] [id number] [address] [place] [phone] Jul, Major depressive disorder, r ecurrent episode, severe, 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 [place] [address] [place] [id number] [address] [place] [phone] Jun, Major depressive disorder, r ecurrent episode, severe, 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 [facility] [address] [id number] [address] [place] [address] May, [facility] [address] [facility] [id number] [address] [place] [address] May, Major depressive disorder, r ecurrent episode, severe, 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 [facility] [address] [facility] [id number] [address] [place] [address] May, Major depressive disorder, r ecurrent episode, severe, 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 [facility] [address] [facility] [id number] [address] [place] [address] Apr, [place] [address] [facility] [id number] [address] [place] [address] Apr, Depressive disorder, not els ewhere classified 311 and Unspecified psychosis 298.9 [place] [address] [facility] [id number] [address] [place] [address] Apr, Depression 311 and Hard of h earing 389.9 [place] [address] [facility] [id number] [address] [place] [address] Apr, Schizoaffective disorder 295 .70 [place] [address] [facility] [id number] [address] [place] [address] Apr, Major depressive disorder, r ecurrent episode, severe, specified as with psychotic behavior 296.34 [place] [address] [facility] [id number] [address] [place] [address] Apr, Psychosis 298.9 and Depressi on 311 [place] [address] [facility] [id number] [address] [place] [address] Apr, Depressive disorder, not els ewhere classified 311 and Unspecified psychosis 298.9 [place] [address] [facility] [id number] [address] [place] [address] Mar, Screening for cervical cance r V76.2 ; Well woman exam with routine gynecological exam V72.31 ; Colon cancer screening V76.51 ; Breast cancer screening V76.10 ; Irritable bowel syndrome 564.1 and Psychosis 298.9 [facility] [address] [id number] [address] [place] [address] Mar, Psychosis 298.9 [facility] [address] [id number] [address] [place] [address] Mar, Unspecified psychosis 298.9 [facility] [address] [id number] [address] [place] [address] 14 Nov, 2014 [facility] [address] [id number] [address] [place] [phone] Nov, [facility] [address] [id number] [address] [place] [address] Oct, [facility] [address] [id number] [address] [place] [phone] Oct, [facility] [address] [id number] [address] [place] [phone] Jul, [facility] [address] [id number] [address] [place] [phone] Jul, [facility] [address] [id number] [address] [place] [address] May, [facility] [address] [id number] [address] [place] [address] Apr, [facility] [address] [id number] [address] [place] [address] 11 Apr, 2014 [facility] [address] [id number] [address] [place] [address] 05 Apr, 2014 [facility] [address] [id number] [address] [place] [id number] 05 Apr, 2014 [facility] [address] [id number] [address] [place] [phone] 04 Apr, 2014 [facility] [address] [id number] [facility] [place] [address] Mar, [facility] [address] [id number] [facility] [place] [address] Mar, [facility] [address] [id number] [facility] [place] [address] Mar, [facility] [address] [id number] [facility] [place] [address] Mar, [facility] [address] [id number] [facility] [place] [address] Mar, [facility] [address] [id number] [facility] [place] [address] Mar, [facility] [address] [id number] [facility] [place] [address] Mar, [facility] [address] [id number] [address] [place] [address], [place] [address] Mar, [facility] [address] [id number] [address] [place] [address], [place] [address] Mar, [facility] [address] [id number] [address] [place] [address], [place] [address] Mar, [facility] [address] [id number] [address] [place] [address], [place] [address] Jan, [facility] [address] [id number] [address] [place] [address], [place] [address] Jan, [facility] [address] [id number] [address] [place] [address], [place] [address] December, [facility] [address] [id number] [address] [place] [address], [place] [address] December, [facility] [address] [id number] [address] [place] [address], [place] [address] Nov, [facility] [address] [id number] [address] [place] [address], [place] [address] Nov, [facility] [address] [id number] [address] [place] [address], [place] [address] Sep, [facility] [address] [id number] [address] [place] [address], [place] [address] Sep, [facility] [address] [id number] [address] [place] [address], [place] [address] Sep, [facility] [address] [id number] [address] [place] [address], [place] [address] Sep, [facility] [address] [id number] [address] [place] [address], [place] [address] Jun, [facility] [address] [id number] [address] [place] [address], [place] [address] Jun, [facility] [address] [id number] [address] [place] [address], [place] [address] Jun, [facility] [address] [id number] [address] [place] [address], [place] [address] Jun, [facility] [address] [id number] [address] [place] [address], [place] [address] May, [facility] [address] [id number] [address] [place] [address], [place] [address] May, [facility] [address] [id number] [address] [place] [address], [place] [address] Apr, [facility] [address] [id number] [address] [place] [address], [place] [address] Mar, [facility] [address] [id number] [address] [place] [address], [place] [address] Mar, [facility] [address] [id number] [address] [place] [address], [place] [address] Mar, [facility] [address] [id number] [address] [place] [address], [place] [address] Mar, [facility] [address] [id number] [address] [place] [address], [place] [address] 05 Mar, 2013 [facility] [address] [id number] [address] [place] [address], [place] [address] 08 Jan, 2013 [facility] [address] [id number] [address] [place] [address], [place] [address] Jan, [facility] [address] [id number] [address] [place] [address], [place] [address] Jan, [facility] [address] [id number] [address] [place] [address], [place] [address] December, [facility] [address] [id number] [address] [place] [address], [place] [address] Oct, [facility] [address] [id number] [address] [place] [address], [place] [address] Oct, [facility] [address] [id number] [address] [place] [address], [place] [address] Oct, [facility] [address] [id number] [address] [place] [address], [place] [address] Oct, [facility] [address] [id number] [address] [place] [address], [place] [address] Aug, [facility] [address] [id number] [address] [place] [address], [place] [address] 16 Jun, 2012 [facility] [address] [id number] [address] [place] [address], [place] [address] 16 Jun, 2012 [facility] [address] [id number] [address] [place] [address], [place] [address] 14 Jun, 2012 [facility] [address] [id number] [address] [place] [address], [place] [address] 14 Jun, 2012 [facility] [address] [id number] [address] [place] [address], [place] [address] 05 May, 2012 [facility] [address] [id number] [address] [place] [address], [place] [address] Apr, [facility] [address] [id number] [address] [place] [address], [place] [address] Mar, [facility] [address] [id number] [address] [place] [address], [place] [address] Jan, [facility] [address] [id number] [address] [place] [address], [place] [address] Jan, [facility] [address] [id number] [address] [place] [address], [place] [address] December, [facility] [address] [id number] [address] [place] [address], [place] [address] December, [facility] [address] [id number] [address] [place] [address], [place] [address] December, [facility] [address] [id number] [address] [place] [address], [place] [address] December, [facility] [address] [id number] [address] [place] [address], [place] [address] Nov, [facility] [address] [id number] [address] [place] [address], [place] [address] Oct, [facility] [address] [id number] [address] [place] [address], [place] [address] Sep, [facility] [address] [id number] [address] [place] [address], [place] [address] Sep, [facility] [address] [id number] [address] [place] [address], [place] [address] Sep, [facility] [address] [id number] [address] [place] [address], [place] [address] Sep, [facility] [address] [id number] [address] [place] [address], [place] [address] Aug, [facility] [address] [id number] [address] [place] [address], [place] [address] Jun, [facility] [address] [id number] [address] [place] [address] May, [facility] [address] [facility] [id number] [address] [place] [address] Mar, [facility] [address] [facility] [id number] [address] [place] [address] Jun, [facility] [address] [facility] [id number] [address] [place] [address] May, [facility] [address] [facility] [id number] [address] [place] [address] May, IMMUNIZATIONS No Known Immunizations SOCIAL HISTORY Never Assessed REASON FOR VISIT PLAN OF CARE VITAL SIGNS Height 65 in 2014-03-23 Weight 258.9 lbs 2014-03-23 Temperature 97 degrees Fahrenheit 2014-03-23 Heart Rate 80 bpm 2014-03-23 Respiratory Rate 18 2014-03-23 Blood pressure systolic 128 mmHg 2014-03-23 Blood pressure diastolic 84 mmHg 2014-03-23 MEDICATIONS Unknown Medications RESULTS No Results PROCEDURES Procedure Date Ordered Result Body Site MAMMOGRAM, SCREENING Mar 23, 2014 INSTRUCTIONS MEDICATIONS ADMINISTERED No Known Medications MEDICAL (GENERAL) HISTORY Type Description Date Medical History depression Medical History hypothryroidism Medical History hyperlipidemia Medical History trauma: Stroke - with L side faci al drooping Surgical History hysterectomy Surgical History cholecystectomy Surgical History gall bladder removal Hospitalization History surgeries Hospitalization History stroke
--- OUTSIDE RECORDS SUMMARY | 2020-02-21 11:47 | XMS REPORT ---
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 Active 25966359 Problem Pressure injury of left buttock, stage 2 L89.322 Active 195813663 Problem Hearing loss of both ears H91.93 Acti ve 25465999 Problem Acquired hypothyroidism E03.9 Active 746883381 Problem Pure hypercholesterolemia E78.0 Acti ve 277451948 Problem Gastroesophageal reflux disease without esophagitis K21.9 Active [id number] ALLERGIES No Information ENCOUNTERS Encounter Location Date Diagnosis [facility] [address] [id number] [address] [place] [address] Jan, [facility] [address] [id number] [address] [place] [address] Jan, [facility] [address] [id number] [address] [place] [address] December, [facility] [address] [facility] [id number] [address] [place] [address] December, [facility] [address] [facility] [id number] [address] [place] [address] December, [facility] [address] [facility] [id number] [address] [place] [address] December, Wound of left lower extremit y, subsequent encounter S81.802D [facility] [address] [id number] [address] [place] [address] Nov, [facility] [address] [facility] [id number] [address] [place] [address] Nov, Blister of left lower extrem ity without infection, initial encounter S80.822A and Morbid obesity E66.01 [facility] [address] [id number] [address] [place] [address] Nov, [facility] [address] [id number] [address] [place] [address] Nov, [facility] [address] [id number] [address] [place] [phone] Nov, [facility] [address] [id number] [address] [place] [address] Nov, [facility] [address] [id number] [address] [place] [address] Nov, [facility] [address] [id number] [address] [place] [address] Nov, [facility] [address] [id number] [address] [place] [address] Oct, [facility] [address] [id number] [address] [place] [address] Oct, Depression, major, in remiss ion F32.5 [facility] [address] [id number] [address] [place] [address] Oct, [facility] [address] [id number] [address] [place] [address] Oct, [facility] [address] [id number] [address] [place] [address] Oct, [facility] [address] [id number] [address] [place] [address] Oct, Morbid obesity E66.01 and Pr essure injury of left buttock, stage 2 L89.322 [facility] [address] [id number] [address] [place] [address] Oct, [facility] [address] [id number] [address] [place] [address] Oct, [facility] [address] [place] [id number] [address] [place] [address] Oct, [facility] [address] [place] [id number] [address] [place] [address] Oct, Pressure injury of other sit e, stage 2 L89.892 and Morbid obesity E66.01 [facility] [address] [place] [id number] [address] [place] [address] Sep, Cellulitis of other specifie d site L03.818 and BMI 40.0-44.9, adult Z68.41 [facility] [address] [place] [id number] [address] [place] [address] 13 Sep, 2018 Scab R23.4 and BMI 40.0-44.9 , adult Z68.41 [facility] [address] [place] [id number] [address] [place] [address] Jun, Major depression in remissio n F32.5 [facility] [address] [place] [id number] [address] [place] [address] Apr, [facility] [address] [place] [id number] [address] [place] [address] Apr, Encounter for breast cancer screening other than mammogram Z12.39 ; Encounter for immunization Z23 and Colon cancer screening Z12.11 [facility] [address] [place] [id number] [address] [place] [address] Mar, Major depression in partial remission F32.4 and BMI 40.0-44.9, adult Z68.41 [facility] [address] [place] [id number] [address] [place] [address] Mar, [facility] [address] [place] [id number] [address] [place] [address] Mar, Acquired hypothyroidism E03. 9 [facility] [address] [place] [id number] [address] [place] [address] Mar, Pain in left knee M25.562 ; Other chronic pain G89.29 and Gastroesophageal reflux disease without esophagitis K21.9 [facility] [address] [facility] [id number] [address] [place] [address] Jan, [facility] [address] [facility] [id number] [address] [place] [address] Jan, Acquired hypothyroidism E03. 9 [facility] [address] [facility] [id number] [address] [place] [address] Jan, [facility] [address] [facility] [id number] [address] [place] [address] Jan, Acquired hypothyroidism E03. 9 [facility] [address] [facility] [id number] [address] [place] [address] December, Major depressive disorder in full remission, unspecified whether recurrent F32.5 [facility] [address] [facility] [id number] [address] [place] [address] Nov, Acquired hypothyroidism E03. 9 [facility] [address] [facility] [id number] [address] [place] [address] Nov, Pure hypercholesterolemia E7 8.0 ; Peripheral edema R60.9 and Acquired hypothyroidism E03.9 [facility] [address] [facility] [id number] [address] [place] [address] Oct, Mild acid reflux K21.9 [facility] [address] [facility] [id number] [address] [place] [address] Sep, Major depressive disorder, s glenny episode, in partial remission F32.4 and Long-term use of high-risk medication Z79.899 [facility] [address] [place] [id number] [address] [place] [address] Aug, Encounter for immunization Z 23 [facility] [address] [facility] [id number] [address] [place] [address] Jul, [facility] [address] [place] [id number] [place] [address] Jun, Medicare annual wellness vis it, initial Z00.00 ; BMI 40.0-44.9, adult Z68.41 and Encounter for immunization Z23 [facility] [address] [facility] [id number] [address] [place] [address] May, [facility] [address] [facility] [id number] [address] [place] [address] May, Encounter for immunization Z 23 [facility] [address] [facility] [id number] [address] [place] [address] May, Major depression in partial remission F32.4 [facility] [address] [facility] [id number] [address] [place] [address] Apr, Hearing loss H91.90 ; Encoun ter for immunization Z23 and Encounter for screening mammogram for breast cancer Z12.31 [facility] [address] [facility] [id number] [address] [place] [address] Mar, Acquired hypothyroidism E03. 9 [facility] [address] [facility] [id number] [address] [place] [address] Jan, Acquired hypothyroidism E03. 9 [facility] [address] [facility] [id number] [address] [place] [address] Jan, Acute midline low back pain without sciatica M54.5 [facility] [address] [facility] [id number] [address] [place] [address] Jan, Peripheral edema R60.9 [facility] [address] [facility] [id number] [address] [place] [address] Jan, Major depression in partial remission F32.4 [facility] [address] [facility] [id number] [address] [place] [address] Jan, Localized edema R60.0 [facility] [address] [facility] [id number] [address] [place] [address] Nov, Pure hypercholesterolemia E7 8.0 [facility] [address] [facility] [id number] [address] [place] [address] Nov, Pure hypercholesterolemia E7 8.0 [facility] [address] [id number] [address] [place] [address] Nov, Peripheral edema R60.9 [facility] [address] [id number] [address] [place] [address] Oct, Major depression in partial remission F32.4 [facility] [address] [id number] [address] [place] [address] Aug, [facility] [address] [id number] [address] [place] [address] Aug, Elevated blood pressure read ing R03.0 [facility] [address] [id number] [address] [place] [phone] Aug, [facility] [address] [facility] [id number] [address] [place] [address] Jun, Major depression in partial remission F32.4 [facility] [address] [id number] [address] [place] [address] Apr, Major depressive disorder, r ecurrent episode, mild F33.0 [facility] [address] [facility] [id number] [address] [place] [address] Mar, Encounter for well woman exa m with routine gynecological exam Z01.419 and Breast cancer screening Z12.39 [facility] [address] [facility] [id number] [address] [place] [address] Jan, Hypothyroidism, unspecified type E03.9 [facility] [address] [id number] [address] [place] [address] Jan, Major depressive disorder, r ecurrent episode, mild F33.0 [facility] [address] [facility] [id number] [address] [place] [address] Jan, Abscess L02.91 [place] [address] [facility] [id number] [address] [place] [address] Jan, Furuncle L02.92 [facility] [address] [id number] [address] [place] [address] 16 Jan, 2016 Major depression in partial remission F32.4 [facility] [address] [id number] [address] [place] [phone] 13 Jan, 2016 Major depressive disorder, r ecurrent episode, mild F33.0 [facility] [address] [id number] [address] [place] [phone] 17 Dec, 2015 Acute bacterial conjunctivit is of left eye H10.022 [facility] [address] [id number] [address] [place] [address] 17 Dec, 2015 Major depressive disorder, r ecurrent episode, mild F33.0 [facility] [address] [facility] [id number] [address] [place] [address] Nov, [facility] [address] [facility] [id number] [address] [place] [address] Nov, Major depressive disorder, r ecurrent episode, mild F33.0 [facility] [address] [facility] [id number] [address] [place] [address] 18 Nov, 2015 Hearing loss H91.90 [facility] [address] [facility] [id number] [address] [place] [phone] 17 Oct, 2015 Major depression in partial remission F32.4 [place] [address] [facility] [id number] [address] [place] [phone] 15 Oct, 2015 Pneumonia J18.9 [facility] [address] [facility] [id number] [address] [place] [address] 10 Oct, 2016 Influenza A J10.1 ; Fever, u nspecified R50.9 ; Conjunctivitis H10.9 and Cough R05 [place] [address] [id number] [address] [place] [phone] 10 Oct, 2015 Major depressive disorder, r ecurrent episode, severe, 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 [facility] [address] [facility] [id number] [address] [place] [address] Aug, [facility] [address] [facility] [id number] [address] [place] [phone] Aug, Acquired hypothyroidism E03. 9 and Pure hypercholesterolemia E78.0 [facility] [address] [facility] [id number] [address] [place] [address] Aug, Major depressive disorder, r ecurrent episode, severe, 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 [facility] [address] [facility] [id number] [address] [place] [address] Jul, [facility] [address] [facility] [id number] [address] [place] [id number] Jul, Major depressive disorder, r ecurrent episode, severe, 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 [facility] [address] [facility] [id number] [address] [place] [address] Jun, Major depressive disorder, r ecurrent episode, severe, 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 [facility] [address] [facility] [id number] [address] [place] [address] May, [facility] [address] [facility] [id number] [address] [place] [address] May, Major depressive disorder, r ecurrent episode, severe, 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 [facility] [address] [facility] [id number] [address] [place] [address] May, Major depressive disorder, r ecurrent episode, severe, 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 [facility] [address] [facility] [id number] [address] [place] [address] Apr, [facility] [address] [facility] [id number] [address] [place] [address] Apr, Depressive disorder, not els ewhere classified 311 and Unspecified psychosis 298.9 [facility] [address] [facility] [id number] [address] [place] [address] Apr, Depression 311 and Hard of h earing 389.9 [facility] [address] [facility] [id number] [address] [place] [address] 10 Apr, 2015 Schizoaffective disorder 295 .70 [facility] [address] [facility] [id number] [address] [place] [address] 08 Apr, 2015 Major depressive disorder, r ecurrent episode, severe, specified as with psychotic behavior 296.34 [facility] [address] [facility] [id number] [address] [place] [address] Apr, Psychosis 298.9 and Depressi on 311 [facility] [address] [facility] [id number] [address] [place] [address] Apr, Depressive disorder, not els ewhere classified 311 and Unspecified psychosis 298.9 [facility] [address] [facility] [id number] [address] [place] [address] Mar, Screening for cervical cance r V76.2 ; Well woman exam with routine gynecological exam V72.31 ; Colon cancer screening V76.51 ; Breast cancer screening V76.10 ; Irritable bowel syndrome 564.1 and Psychosis 298.9 [facility] [address] [facility] [id number] [address] [place] [address] Mar, Psychosis 298.9 [facility] [address] [facility] [id number] [address] [place] [address] Mar, Unspecified psychosis 298.9 [facility] [address] [facility] [id number] [address] [place] [address] Nov, [facility] [address] [facility] [id number] [address] [place] [address] Nov, [facility] [address] [facility] [id number] [address] [place] [address] Oct, [facility] [address] [facility] [id number] [address] [place] [phone] Oct, [facility] [address] [facility] [id number] [address] [place] [address] Jul, [facility] [address] [id number] [address] [place] [address], [place] [address] Jul, [facility] [address] [id number] [address] [place] [address], [place] [address] May, [facility] [address] [id number] [address] [place] [address], [place] [address] Apr, [facility] [address] [id number] [address] [place] [address], [place] [address] Apr, [facility] [address] [id number] [address] [place] [address], [place] [address] Apr, [facility] [address] [id number] [address] [place] [address], [place] [address] Apr, [facility] [address] [id number] [address] [place] [address], [place] [address] Apr, [facility] [address] [id number] [address] [place] [address], [place] [address] Mar, [facility] [address] [id number] [address] [place] [address], [place] [address] Mar, [facility] [address] [id number] [address] [place] [address], [place] [address] Mar, [facility] [address] [id number] [address] [place] [address], [place] [address] Mar, [facility] [address] [id number] [address] [place] [address], [place] [address] Mar, [facility] [address] [id number] [address] [place] [address], [place] [address] Mar, [facility] [address] [id number] [address] [place] [address], [place] [address] Mar, [facility] [address] [id number] [address] [place] [address], [place] [address] Mar, [facility] [address] [id number] [address] [place] [address], [place] [address] Mar, [facility] [address] [id number] [address] [place] [address], [place] [address] Mar, [facility] [address] [id number] [address] [place] [address], [place] [address] Jan, [facility] [address] [id number] [address] [place] [address], [place] [address] Jan, [facility] [address] [id number] [address] [place] [address], [place] [address] December, [facility] [address] [id number] [address] [place] [address], [place] [address] December, [facility] [address] [id number] [address] [place] [address], [place] [address] Nov, [facility] [address] [id number] [address] [place] [address], [place] [address] Nov, [facility] [address] [id number] [address] [place] [address], [place] [address] Sep, [facility] [address] [id number] [address] [place] [address], [place] [address] Sep, [facility] [address] [id number] [address] [place] [address], [place] [address] Sep, [facility] [address] [id number] [address] [place] [address], [place] [address] Sep, [facility] [address] [id number] [address] [place] [address], [place] [address] Jun, [facility] [address] [id number] [address] [place] [address], [place] [address] Jun, [facility] [address] [id number] [address] [place] [address], [place] [address] Jun, [facility] [address] [id number] [address] [place] [address], [place] [address] Jun, [facility] [address] [id number] [address] [place] [address], [place] [address] May, [facility] [address] [id number] [address] [place] [address], [place] [address] May, [facility] [address] [id number] [address] [place] [address], [place] [address] Apr, [facility] [address] [id number] [address] [place] [address], [place] [address] Mar, [facility] [address] [id number] [address] [place] [address], [place] [address] Mar, [facility] [address] [id number] [address] [place] [address], [place] [address] Mar, [facility] [address] [id number] [address] [place] [address], [place] [address] Mar, [facility] [address] [id number] [address] [place] [address], [place] [address] Mar, [facility] [address] [id number] [address] [place] [address], [place] [address] Jan, [facility] [address] [id number] [address] [place] [address], [place] [address] Jan, [facility] [address] [id number] [address] [place] [address], [place] [address] Jan, [facility] [address] [id number] [address] [place] [address], [place] [address] December, [facility] [address] [id number] [address] [place] [address], [place] [address] Oct, [facility] [address] [id number] [address] [place] [address], [place] [address] Oct, [facility] [address] [id number] [address] [place] [address], [place] [address] Oct, [facility] [address] [id number] [address] [place] [address], [place] [address] Oct, [facility] [address] [id number] [address] [place] [address], [place] [address] Aug, [facility] [address] [id number] [address] [place] [address], [place] [address] Jun, [facility] [address] [id number] [address] [place] [address], [place] [address] Jun, [facility] [address] [id number] [address] [place] [address], [place] [address] Jun, [facility] [address] [id number] [address] [place] [address], [place] [address] Jun, [facility] [address] [id number] [address] [place] [address], [place] [address] May, [facility] [address] [id number] [address] [place] [address], [place] [address] Apr, [facility] [address] [id number] [address] [place] [address], [place] [address] Mar, [facility] [address] [id number] [address] [place] [address], [place] [address] Jan, [facility] [address] [id number] [address] [place] [address], [place] [address] Jan, [facility] [address] [id number] [address] [place] [address], [place] [address] December, [facility] [address] [id number] [address] [place] [address], [place] [address] December, [facility] [address] [id number] [address] [place] [address], [place] [address] December, [facility] [address] [id number] [address] [place] [address], [place] [address] December, [facility] [facility] [address] [id number] [address] [place] [address], [place] [id number] Nov, [facility] [address] [id number] [address] [place] [id number] Oct, [facility] [address] [id number] [address] [place] [id number] Sep, [facility] [address] [id number] [address] [place] [id number] Sep, [facility] [address] [id number] [address] [place] [id number] Sep, [facility] [address] [id number] [address] [place] [id number] Sep, [facility] [address] [id number] [address] [place] [id number] Aug, [facility] [address] [id number] [address] [place] [phone] Jun, [facility] [address] [id number] [address] [place] [id number] May, [facility] [address] [id number] [address] [place] [phone] Mar, [facility] [address] [id number] [address] [place] [phone] Jun, [facility] [address] [id number] [address] [place] [phone] May, [facility] [address] [id number] [address] [place] [id number] May, IMMUNIZATIONS No Known Immunizations SOCIAL HISTORY Never Assessed [place]ON [place]IT [place] [place] VITAL SIGNS MEDICATIONS Unknown [...]
--- OUTSIDE RECORDS SUMMARY | 2020-02-21 11:47 | XMS REPORT ---
Author Author Tarik Logan Doctor Organization [facility] Address Unknown Phone Unavailable Care Team Providers Care Durable Medical Equipment Technician Name Role Phone Migration, Doctor Unavailable Unavailable PROBLEMS Type Condition ICD9-CM Code [id number] Code Onset Dates Condition S tatus SNOMED Code Problem Hearing loss of both ears H91.93 Acti ve 42560228 Problem Pressure injury of left buttock, stage 2 L89.322 Active 269289732 Problem Hyperlipidemia, unspecified hyperlipidemia type E7 8.5 Active 30810019 Problem Acquired hypothyroidism E03.9 Active 444052097 Problem Pure hypercholesterolemia E78.0 Acti ve 849613838 Problem Gastroesophageal reflux disease without esophagitis K21.9 Active 079510431 Problem Depression, major, 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 Active 49720333 ALLERGIES Substance Reaction Event Type Date Status Penicillins Unknown Non Drug Allergy Nov, Active ENCOUNTERS Encounter Location Date Diagnosis [facility] [address] [facility] [id number] [address] [place] [phone] Jan, [facility] [address] [facility] [id number] [address] [place] [address] Jan, Hyperlipidemia, unspecified hyperlipidemia type E78.5 and Morbid obesity E66.01 [facility] [address] [facility] [id number] [address] [place] [address] Jan, [facility] [address] [facility] [id number] [address] [place] [address] December, [facility] [address] [facility] [id number] [address] [place] [address] December, [facility] [address] [facility] [id number] [address] [place] [address] December, [facility] [address] [facility] [id number] [address] [place] [address] December, Wound of left lower extremit y, subsequent encounter S81.802D [facility] [address] [id number] [address] [place] [address] Nov, [facility] [address] [id number] [address] [place] [address] Nov, Blister of left lower extrem ity without infection, initial encounter S80.822A and Morbid obesity E66.01 [facility] [address] [id number] [address] [place] [address] Nov, [facility] [address] [id number] [address] [place] [address] Nov, [facility] [address] [id number] [address] [place] [address] Nov, [facility] [address] [id number] [address] [place] [address] Nov, [facility] [address] [id number] [address] [place] [address] Nov, [facility] [address] [id number] [address] [place] [address] Nov, [facility] [address] [id number] [address] [place] [address] Oct, [facility] [address] [id number] [address] [place] [address] Oct, Depression, major, in remiss ion F32.5 [facility] [address] [id number] [address] [place] [phone] Oct, [facility] [address] [id number] [address] [place] [address] Oct, [facility] [address] [id number] [address] [place] [address] Oct, [facility] [address] [id number] [address] [place] [address] Oct, Morbid obesity E66.01 and Pr essure injury of left buttock, stage 2 L89.322 [place] [address] [place] [id number] [address] [place] [address] Oct, [place] [address] [place] [id number] [address] [place] [address] Oct, [place] [address] [place] [id number] [address] [place] [address] Oct, [place] [address] [place] [id number] [address] [place] [address] Oct, Pressure injury of other sit e, stage 2 L89.892 and Morbid obesity E66.01 [place] [address] [place] [id number] [address] [place] [address] Sep, Cellulitis of other specifie d site L03.818 and BMI 40.0-44.9, adult Z68.41 [place] [address] [place] [id number] [address] [place] [address] 13 Sep, 2018 Scab R23.4 and BMI 40.0-44.9 , adult Z68.41 [place] [id number] [place] [address] Jun, Major depression in remissio n F32.5 [place] [id number] [place] [address] Apr, [place] [address] [place] [id number] [address] [place] [address] Apr, Encounter for breast cancer screening other than mammogram Z12.39 ; Encounter for immunization Z23 and Colon cancer screening Z12.11 [place] [address] [place] [id number] [address] [place] [address] Mar, Major depression in partial remission F32.4 and BMI 40.0-44.9, adult Z68.41 [place] [address] [place] [id number] [address] [place] [address] Mar, [facility] [address] [facility] [id number] [address] [place] [address] Mar, Acquired hypothyroidism E03. 9 [facility] [address] [facility] [id number] [address] [place] [address] Mar, Pain in left knee M25.562 ; Other chronic pain G89.29 and Gastroesophageal reflux disease without esophagitis K21.9 [facility] [address] [facility] [id number] [address] [place] [address] Jan, [place] [address] [facility] [id number] [address] [place] [address] Jan, Acquired hypothyroidism E03. 9 [place] [address] [facility] [id number] [address] [place] [address] Jan, [place] [address] [place] [id number] [address] [place] [address] Jan, Acquired hypothyroidism E03. 9 [place] [address] [facility] [id number] [address] [place] [address] December, Major depressive disorder in full remission, unspecified whether recurrent F32.5 [place] [address] [facility] [id number] [address] [place] [address] Nov, Acquired hypothyroidism E03. 9 [place] [address] [place] [id number] [address] [place] [address] Nov, Pure hypercholesterolemia E7 8.0 ; Peripheral edema R60.9 and Acquired hypothyroidism E03.9 [place] [address] [facility] [id number] [address] [place] [address] Oct, Mild acid reflux K21.9 [facility] [address] [facility] [id number] [address] [place] [address] Sep, Major depressive disorder, s glenny episode, in partial remission F32.4 and Long-term use of high-risk medication Z79.899 [place] [address] [place] [id number] [address] [place] [address] Aug, Encounter for immunization Z 23 [facility] [address] [id number] [address] [place] [address] Jul, [facility] [address] [facility] [id number] [address] [place] [address] Jun, Medicare annual wellness vis it, initial Z00.00 ; BMI 40.0-44.9, adult Z68.41 and Encounter for immunization Z23 [facility] [address] [facility] [id number] [address] [place] [address] May, [facility] [address] [facility] [id number] [address] [place] [address] May, Encounter for immunization Z 23 [place] [address] [facility] [id number] [address] [place] [address] May, Major depression in partial remission F32.4 [place] [address] [facility] [id number] [address] [place] [address] Apr, Hearing loss H91.90 ; Encoun ter for immunization Z23 and Encounter for screening mammogram for breast cancer Z12.31 [place] [address] [facility] [id number] [address] [place] [address] Mar, Acquired hypothyroidism E03. 9 [place] [address] [facility] [id number] [address] [place] [address] Jan, Acquired hypothyroidism E03. 9 [place] [address] [facility] [id number] [address] [place] [address] Jan, Acute midline low back pain without sciatica M54.5 [place] [address] [facility] [id number] [address] [place] [address] Jan, Peripheral edema R60.9 [place] [address] [facility] [id number] [address] [place] [address] Jan, Major depression in partial remission F32.4 [place] [address] [facility] [id number] [address] [place] [address] Jan, Localized edema R60.0 [facility] [address] [id number] [address] [place] [address] Nov, Pure hypercholesterolemia E7 8.0 [facility] [address] [id number] [address] [place] [address] Nov, Pure hypercholesterolemia E7 8.0 [facility] [address] [id number] [address] [place] [address] Nov, Peripheral edema R60.9 [facility] [address] [id number] [address] [place] [address] Oct, Major depression in partial remission F32.4 [facility] [address] [id number] [address] [place] [address] Aug, [facility] [address] [facility] [id number] [address] [place] [address] Aug, Elevated blood pressure read ing R03.0 [facility] [address] [id number] [address] [place] [address] Aug, [facility] [address] [facility] [id number] [address] [place] [address] Jun, Major depression in partial remission F32.4 [facility] [address] [facility] [id number] [address] [place] [address] Apr, Major depressive disorder, r ecurrent episode, mild F33.0 [facility] [address] [facility] [id number] [address] [place] [address] Mar, Encounter for well woman exa m with routine gynecological exam Z01.419 and Breast cancer screening Z12.39 [facility] [address] [facility] [id number] [address] [place] [address] Jan, Hypothyroidism, unspecified type E03.9 [facility] [address] [facility] [id number] [address] [place] [address] Jan, Major depressive disorder, r ecurrent episode, mild F33.0 [facility] [address] [id number] [address] [place] [address] 30 Jan, 2016 Abscess L02.91 [facility] [address] [id number] [address] [place] [address] 22 Jan, 2016 Furuncle L02.92 [place] [address] [id number] [address] [place] [address] 16 Jan, 2016 Major depression in partial remission F32.4 [facility] [address] [id number] [address] [place] [phone] 13 Jan, 2016 Major depressive disorder, r ecurrent episode, mild F33.0 [facility] [address] [id number] [address] [place] [address] December, Acute bacterial conjunctivit is of left eye H10.022 [place] [address] [id number] [address] [place] [address] December, Major depressive disorder, r ecurrent episode, mild F33.0 [facility] [address] [id number] [address] [place] [address] Nov, [facility] [address] [id number] [address] [place] [address] Nov, Major depressive disorder, r ecurrent episode, mild F33.0 [facility] [address] [id number] [address] [place] [phone] 18 Nov, 2015 Hearing loss H91.90 [facility] [address] [id number] [address] [place] [phone] 17 Oct, 2015 Major depression in partial remission F32.4 [facility] [address] [id number] [address] [place] [address] 15 Oct, 2015 Pneumonia J18.9 [facility] [address] [id number] [address] [place] [phone] 10 Oct, 2015 Influenza A J10.1 ; Fever, u nspecified R50.9 ; Conjunctivitis H10.9 and Cough R05 [facility] [address] [facility] [id number] [address] [place] [address] Oct, Major depressive disorder, r ecurrent episode, severe, 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 [facility] [address] [facility] [id number] [address] [place] [address] Aug, [facility] [address] [place] [id number] [address] [place] [address] Aug, Acquired hypothyroidism E03. 9 and Pure hypercholesterolemia E78.0 [place] [address] [place] [id number] [address] [place] [address] Aug, Major depressive disorder, r ecurrent episode, severe, 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 [place] [address] [place] [id number] [address] [place] [phone] Jul, [facility] [address] [place] [id number] [address] [place] [address] Jul, Major depressive disorder, r ecurrent episode, severe, 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 [place] [address] [place] [id number] [address] [place] [address] Jun, Major depressive disorder, r ecurrent episode, severe, 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 [facility] [address] [place] [id number] [address] [place] [address] May, [facility] [address] [facility] [id number] [address] [place] [address] May, Major depressive disorder, r ecurrent episode, severe, 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 [place] [address] [place] [id number] [address] [place] [address] May, Major depressive disorder, r ecurrent episode, severe, 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 [facility] [address] [facility] [id number] [address] [place] [address] Apr, [place] [address] [place] [id number] [address] [place] [address] Apr, Depressive disorder, not els ewhere classified 311 and Unspecified psychosis 298.9 [facility] [address] [facility] [id number] [address] [place] [address] Apr, Depression 311 and Hard of h earing 389.9 [facility] [address] [facility] [id number] [address] [place] [address] Apr, Schizoaffective disorder 295 .70 [facility] [address] [facility] [id number] [address] [place] [address] 08 Apr, 2015 Major depressive disorder, r ecurrent episode, severe, specified as with psychotic behavior 296.34 [place] [address] [place] [id number] [address] [place] [address] Apr, Psychosis 298.9 and Depressi on 311 [place] [address] [place] [id number] [address] [place] [address] Apr, Depressive disorder, not els ewhere classified 311 and Unspecified psychosis 298.9 [place] [address] [place] [id number] [address] [place] [address] Mar, Screening for cervical cance r V76.2 ; Well woman exam with routine gynecological exam V72.31 ; Colon cancer screening V76.51 ; Breast cancer screening V76.10 ; Irritable bowel syndrome 564.1 and Psychosis 298.9 [facility] [address] [place] [id number] [address] [place] [address] Mar, Psychosis 298.9 [facility] [address] [facility] [id number] [address] [place] [address] Mar, Unspecified psychosis 298.9 [place] [address] [place] [id number] [address] [place] [address] Nov, [facility] [address] [place] [id number] [address] [place] [address] Nov, [facility] [address] [place] [id number] [address] [place] [address] [place] [address] Oct, [facility] [address] [id number] [address] [place] [address], [place] [address] Oct, [facility] [address] [id number] [address] [place] [address], [place] [address] Jul, [facility] [address] [id number] [address] [place] [address], [place] [address] Jul, [facility] [address] [id number] [address] [place] [address], [place] [address] May, [facility] [address] [id number] [address] [place] [address], [place] [address] Apr, [facility] [address] [id number] [address] [place] [address], [place] [address] Apr, 2013 [facility] [address] [id number] [address] [place] [address], [place] [address] Apr, 2013 [facility] [address] [id number] [address] [place] [address], [place] [address] 05 Apr, 2013 [facility] [address] [id number] [address] [place] [address], [place] [address] Apr, [facility] [address] [id number] [address] [place] [address], [place] [address] Mar, [facility] [address] [id number] [address] [place] [address], [place] [address] Mar, [facility] [address] [id number] [address] [place] [address], [place] [address] Mar, [facility] [address] [id number] [address] [place] [address], [place] [address] Mar, [facility] [address] [id number] [address] [place] [address], [place] [address] Mar, [facility] [address] [id number] [address] [place] [address], [place] [address] Mar, [facility] [address] [id number] [facility] [place] [address] Mar, [facility] [address] [id number] [address] [place] [address], [place] [address] Mar, [facility] [address] [id number] [address] [place] [address], [place] [address] Mar, [facility] [address] [id number] [address] [place] [address], [place] [address] Mar, [facility] [address] [id number] [address] [place] [address], [place] [address] Jan, [facility] [address] [id number] [address] [place] [address], [place] [address] Jan, [facility] [address] [id number] [address] [place] [address], [place] [address] December, [facility] [address] [id number] [address] [place] [address], [place] [address] December, [facility] [address] [id number] [address] [place] [address], [place] [address] Nov, [facility] [address] [id number] [address] [place] [address], [place] [address] Nov, [facility] [address] [id number] [address] [place] [address], [place] [address] Sep, [facility] [address] [id number] [address] [place] [address], [place] [address] Sep, [facility] [address] [id number] [address] [place] [address], [place] [address] Sep, [facility] [address] [id number] [address] [place] [address], [place] [address] Sep, [facility] [address] [id number] [address] [place] [address], [place] [address] Jun, [facility] [address] [id number] [address] [place] [address], [place] [address] Jun, [facility] [address] [id number] [address] [place] [address], [place] [address] Jun, [facility] [address] [id number] [address] [place] [address], [place] [address] Jun, [facility] [address] [id number] [address] [place] [address], [place] [address] May, [facility] [address] [id number] [address] [place] [address], [place] [address] May, [facility] [address] [id number] [address] [place] [address], [place] [address] Apr, [facility] [address] [id number] [address] [place] [address], [place] [address] Mar, [facility] [address] [id number] [address] [place] [address], [place] [address] Mar, [facility] [address] [id number] [address] [place] [address], [place] [address] Mar, [facility] [address] [id number] [address] [place] [address], [place] [address] Mar, [facility] [address] [id number] [address] [place] [address], [place] [address] Mar, [facility] [address] [id number] [address] [place] [address], [place] [address] Jan, [facility] [address] [id number] [address] [place] [address], [place] [address] Jan, [facility] [address] [id number] [address] [place] [address], [place] [address] Jan, [facility] [address] [id number] [address] [place] [address], [place] [address] December, [facility] [address] [id number] [address] [place] [address], [place] [address] Oct, [facility] [address] [id number] [address] [place] [address], [place] [address] Oct, [facility] [address] [id number] [address] [place] [address], [place] [address] Oct, [facility] [address] [id number] [address] [place] [address], [place] [address] Oct, [facility] [address] [id number] [address] [place] [address], [place] [address] Aug, [facility] [address] [id number] [address] [place] [address], [place] [address] Jun, [facility] [address] [id number] [address] [place] [address], [place] [address] Jun, [facility] [address] [id number] [address] [place] [address], [place] [address] Jun, [facility] [address] [id number] [address] [place] [address], [place] [address] Jun, [facility] [address] [id number] [address] [place] [address], [place] [address] May, [facility] [address] [id number] [address] [place] [address], [place] [address] Apr, [facility] [address] [id number] [address] [place] [address], [place] [address] Mar, [facility] [address] [id number] [address] [place] [address], [place] [address] Jan, [facility] [address] [id number] [address] [place] [address], [place] [phone] Jan, [facility] [address] [id number] [address] [place] [address], [place] [phone] December, [facility] [address] [id number] [address] [place] [address], [place] [phone] December, [facility] [address] [id number] [address] [place] [address], [place] [phone] December, [facility] [address] [id number] [address] [place] [phone] December, [facility] [address] [id number] [address] [place] [phone] Nov, [facility] [address] [id number] [address] [place] [phone] Oct, [facility] [address] [id number] [address] [place] [phone] Sep, [facility] [address] [id number] [address] [place] [phone] Sep, [facility] [address] [id number] [address] [place] [phone] Sep, [facility] [address] [id number] [address] [place] [phone] Sep, [facility] [address] [id number] [address] [place] [phone] Aug, [facility] [address] [id number] [address] [place] [phone] Jun, [facility] [address] [id number] [address] [place] [phone] May, [facility] [address] [id number] [address] [place] [phone] Mar, [facility] [address] [id number] [address] [place] [phone] Jun, [facility] [address] [id number] [address] [place] [phone] May, [facility] [address] [id number] [address] [place] [phone] May, IMMUNIZATIONS No Known Immunizations SOCIAL HISTORY Never Assessed REASON FOR VISIT EMR-[facility] [place] PLAN OF CARE VITAL SIGNS MEDICATIONS Medication Instructions Dosage Frequency Start Date End Date Duration S tatus Amoxicillin 500 mg 2 capsule by Oral route 2 times per day for 7 day(s) Sep, Active PredniSONE 20 mg 2 tablet by Oral route 1 time per day for 5 day(s) Jun, Active RESULTS No Results PROCEDURES No Known procedures INSTRUCTIONS MEDICATIONS ADMINISTERED No Known Medications MEDICAL (GENERAL) HISTORY Type Description Date Medical History depression Medical History hypothryroidism Medical History hyperlipidemia Medical History trauma: Stroke - with L side faci al drooping Surgical History hysterectomy Surgical History cholecystectomy Surgical History gall bladder removal Hospitalization History surgeries Hospitalization History stroke
--- OUTSIDE RECORDS SUMMARY | 2020-02-21 11:47 | XMS REPORT ---
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 Name Role Phone ROMA POTTS Unavailable PROBLEMS Type Condition ICD9-CM Code [id number] Code Onset Dates Condition S tatus SNOMED Code Problem Hearing loss of both ears H91.93 Acti ve 19543459 Problem Acquired hypothyroidism E03.9 Active 396879895 Problem Hyperlipidemia, unspecified hyperlipidemia type E7 8.5 Active 22977577 Problem Post menopausal syndrome N95.1 Activ e 083870772 Problem Pure hypercholesterolemia E78.0 Acti ve 724284330 Problem Gastroesophageal reflux disease without esophagitis K21.9 Active 319936811 Problem Depression, major, 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 Active 65340237 Problem Pressure injury of left buttock, stage 2 L89.322 Active 599512105 ALLERGIES No Information ENCOUNTERS Encounter Location Date Diagnosis [place] [address] [place] [id number] [address] [place] [address] May, [place] [id number] [address] [place] [address] Jan, Depression, major, in remiss ion F32.5 and Morbid obesity E66.01 [place] [address] [place] [id number] [address] [place] [address] Jan, Encounter for Medicare annua l wellness exam Z00.00 ; Hyperlipidemia, unspecified hyperlipidemia type E78.5 ; Depression, major, 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 ; Gastroesophageal reflux disease without esophagitis K21.9 ; Acquired hypothyroidism E03.9 ; Hearing loss of both ears H91.93 ; Post menopausal syndrome N95.1 and Morbid obesity E66.01 [place] [address] [place] [id number] [address] [place] [address] Jan, Hyperlipidemia, unspecified hyperlipidemia type E78.5 and Morbid obesity E66.01 [facility] [address] [id number] [address] [place] [address] Jan, [facility] [address] [id number] [address] [place] [address] December, [facility] [address] [id number] [address] [place] [address] December, [facility] [address] [id number] [address] [place] [address] December, [facility] [address] [id number] [address] [place] [address] December, Wound of left lower extremit y, subsequent encounter S81.802D [facility] [address] [id number] [address] [place] [address] Nov, [facility] [address] [id number] [address] [place] [address] Nov, Blister of left lower extrem ity without infection, initial encounter S80.822A and Morbid obesity E66.01 [facility] [address] [id number] [address] [place] [address] Nov, [facility] [address] [id number] [address] [place] [address] Nov, [facility] [address] [id number] [address] [place] [address] Nov, [facility] [address] [id number] [address] [place] [address] Nov, [facility] [address] [id number] [address] [place] [address] Nov, [facility] [address] [id number] [address] [place] [address] Nov, [facility] [address] [id number] [address] [place] [address] Oct, [facility] [address] [facility] [id number] [address] [place] [address] Oct, Depression, major, in remiss ion F32.5 [facility] [address] [facility] [id number] [address] [place] [phone] Oct, [facility] [address] [facility] [id number] [address] [place] [address] Oct, [facility] [address] [facility] [id number] [address] [place] [address] Oct, [facility] [address] [place] [id number] [address] [place] [address] Oct, Morbid obesity E66.01 and Pr essure injury of left buttock, stage 2 L89.322 [facility] [address] [place] [id number] [address] [place] [address] Oct, [facility] [address] [place] [id number] [address] [place] [address] Oct, [facility] [address] [place] [id number] [address] [place] [address] Oct, [facility] [address] [place] [id number] [address] [place] [address] Oct, Pressure injury of other sit e, stage 2 L89.892 and Morbid obesity E66.01 [facility] [address] [facility] [id number] [address] [place] [address] Sep, Cellulitis of other specifie d site L03.818 and BMI 40.0-44.9, adult Z68.41 [facility] [address] [place] [id number] [address] [place] [address] Sep, Scab R23.4 and BMI 40.0-44.9 , adult Z68.41 [facility] [address] [place] [id number] [address] [place] [address] Jun, Major depression in [facility] n F32.5 [facility] [address] [facility] [id number] [address] [place] [address] Apr, [facility] [address] [facility] [id number] [address] [place] [address] Apr, Encounter for breast cancer screening other than mammogram Z12.39 ; Encounter for immunization Z23 and Colon cancer screening Z12.11 [facility] [address] [id number] [address] [place] [address] Mar, Major depression in partial remission F32.4 and BMI 40.0-44.9, adult Z68.41 [place] [address] [facility] [id number] [address] [place] [address] Mar, [place] [address] [facility] [id number] [address] [place] [address] Mar, Acquired hypothyroidism E03. 9 [facility] [address] [facility] [id number] [address] [place] [address] Mar, Pain in left knee M25.562 ; Other chronic pain G89.29 and Gastroesophageal reflux disease without esophagitis K21.9 [facility] [address] [facility] [id number] [address] [place] [address] Jan, [place] [address] [facility] [id number] [address] [place] [address] Jan, Acquired hypothyroidism E03. 9 [facility] [address] [facility] [id number] [address] [place] [address] Jan, [facility] [address] [facility] [id number] [address] [place] [address] Jan, Acquired hypothyroidism E03. 9 [facility] [address] [facility] [id number] [address] [place] [address] December, Major depressive disorder in full remission, unspecified whether recurrent F32.5 [facility] [address] [facility] [id number] [address] [place] [address] Nov, Acquired hypothyroidism E03. 9 [place] [address] [place] [id number] [address] [place] [address] Nov, Pure hypercholesterolemia E7 8.0 ; Peripheral edema R60.9 and Acquired hypothyroidism E03.9 [place] [address] [place] [id number] [address] [place] [address] Oct, Mild acid reflux K21.9 [place] [address] [place] [id number] [place] [address] Sep, Major depressive disorder, s glenny episode, in partial remission F32.4 and Long-term use of high-risk medication Z79.899 [place] [address] [address] Aug, Encounter for immunization Z 23 [place] [address] [address] Jul, [place] [address] [address] Jun, Medicare annual wellness vis it, initial Z00.00 ; BMI 40.0-44.9, adult Z68.41 and Encounter for immunization Z23 [place] [address] [place] [id number] [place] [address] May, [place] [address] [place] [id number] [place] [address] May, Encounter for immunization Z 23 [place] [address] [place] [id number] [place] [phone] May, Major depression in partial remission F32.4 [place] [id number] [place] [address] Apr, Hearing loss H91.90 ; Encoun ter for immunization Z23 and Encounter for screening mammogram for breast cancer Z12.31 [place] [address] [place] [id number] [address] [place] [phone] Mar, Acquired hypothyroidism E03. 9 [facility] [address] [id number] [address] [place] [address] Jan, Acquired hypothyroidism E03. 9 [facility] [address] [id number] [address] [place] [phone] Jan, Acute midline low back pain without sciatica M54.5 [facility] [address] [facility] [id number] [address] [place] [address] Jan, Peripheral edema R60.9 [facility] [address] [id number] [address] [place] [phone] Jan, Major depression in partial remission F32.4 [facility] [address] [id number] [address] [place] [address] Jan, Localized edema R60.0 [facility] [address] [id number] [address] [place] [address] Nov, Pure hypercholesterolemia E7 8.0 [facility] [address] [id number] [address] [place] [address] Nov, Pure hypercholesterolemia E7 8.0 [facility] [address] [facility] [id number] [address] [place] [address] Nov, Peripheral edema R60.9 [facility] [address] [id number] [address] [place] [address] Oct, Major depression in partial remission F32.4 [facility] [address] [id number] [address] [place] [address] Aug, [facility] [address] [id number] [address] [place] [address] Aug, Elevated blood pressure read ing R03.0 [facility] [address] [facility] [id number] [address] [place] [phone] Aug, [facility] [address] [facility] [id number] [address] [place] [address] Jun, Major depression in partial remission F32.4 [facility] [address] [id number] [address] [place] [phone] 12 Apr, 2016 Major depressive disorder, r ecurrent episode, mild F33.0 [facility] [address] [id number] [address] [place] [address] Mar, Encounter for well woman reta m with routine gynecological exam Z01.419 and Breast cancer screening Z12.39 [facility] [address] [id number] [address] [place] [address] Jan, Hypothyroidism, unspecified type E03.9 [facility] [address] [id number] [address] [place] [address] Jan, Major depressive disorder, r ecurrent episode, mild F33.0 [facility] [address] [id number] [address] [place] [address] Jan, Abscess L02.91 [facility] [address] [facility] [id number] [address] [place] [address] Jan, Furuncle L02.92 [place] [address] [facility] [id number] [address] [place] [address] Jan, Major depression in partial remission F32.4 [facility] [address] [id number] [address] [place] [address] Jan, Major depressive disorder, r ecurrent episode, mild F33.0 [facility] [address] [id number] [address] [place] [address] December, Acute bacterial conjunctivit is of left eye H10.022 [facility] [address] [id number] [address] [place] [address] December, Major depressive disorder, r ecurrent episode, mild F33.0 [facility] [address] [id number] [address] [place] [address] Nov, [facility] [address] [id number] [address] [place] [address] Nov, Major depressive disorder, r ecurrent episode, mild F33.0 [facility] [address] [place] [id number] [address] [place] [address] Nov, Hearing loss H91.90 [facility] [address] [place] [id number] [address] [place] [phone] 17 Oct, 2015 Major depression in partial remission F32.4 [facility] [id number] [place] [address] 15 Oct, 2015 Pneumonia J18.9 [facility] [id number] [place] [address] Oct, Influenza A J10.1 ; Fever, u nspecified R50.9 ; Conjunctivitis H10.9 and Cough R05 [place] [address] [place] [address] Oct, Major depressive disorder, r ecurrent episode, severe, 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 [place] [address] [place] [address] Aug, [place] [address] [address] Aug, Acquired hypothyroidism E03. 9 and Pure hypercholesterolemia E78.0 [facility] [address] [place] [id number] [address] [place] [address] Aug, Major depressive disorder, r ecurrent episode, severe, 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 [place] [address] [place] [id number] [address] [place] [address] Jul, [place] [address] [place] [id number] [address] [place] [address] Jul, Major depressive disorder, r ecurrent episode, severe, 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 [place] [address] [place] [id number] [address] [place] [address] Jun, Major depressive disorder, r ecurrent episode, severe, 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 [facility] [address] [id number] [address] [place] [address] May, [facility] [address] [facility] [id number] [address] [place] [address] May, Major depressive disorder, r ecurrent episode, severe, 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 [facility] [address] [facility] [id number] [address] [place] [address] May, Major depressive disorder, r ecurrent episode, severe, 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 [facility] [address] [facility] [id number] [address] [place] [address] Apr, [place] [address] [facility] [id number] [address] [place] [address] Apr, Depressive disorder, not els ewhere classified 311 and Unspecified psychosis 298.9 [place] [address] [facility] [id number] [address] [place] [address] Apr, Depression 311 and Hard of h earing 389.9 [place] [address] [facility] [id number] [address] [place] [address] Apr, Schizoaffective disorder 295 .70 [place] [address] [facility] [id number] [address] [place] [address] Apr, Major depressive disorder, r ecurrent episode, severe, specified as with psychotic behavior 296.34 [place] [address] [facility] [id number] [address] [place] [address] Apr, Psychosis 298.9 and Depressi on 311 [place] [address] [facility] [id number] [address] [place] [address] Apr, Depressive disorder, not els ewhere classified 311 and Unspecified psychosis 298.9 [place] [address] [facility] [id number] [address] [place] [address] Mar, Screening for cervical cance r V76.2 ; Well woman exam with routine gynecological exam V72.31 ; Colon cancer screening V76.51 ; Breast cancer screening V76.10 ; Irritable bowel syndrome 564.1 and Psychosis 298.9 [facility] [address] [id number] [address] [place] [address] Mar, Psychosis 298.9 [facility] [address] [id number] [address] [place] [address] Mar, Unspecified psychosis 298.9 [facility] [address] [id number] [address] [place] [address] 14 Nov, 2014 [facility] [address] [id number] [address] [place] [address] Nov, [facility] [address] [id number] [address] [place] [address] Oct, [facility] [address] [id number] [address] [place] [address] Oct, [facility] [address] [id number] [address] [place] [address] Jul, [facility] [address] [id number] [address] [place] [address] Jul, [facility] [address] [id number] [address] [place] [address] May, [facility] [address] [id number] [address] [place] [address] Apr, [facility] [address] [id number] [address] [place] [phone] 11 Apr, 2014 [facility] [address] [id number] [address] [place] [phone] 05 Apr, 2014 [facility] [address] [id number] [address] [place] [phone] 05 Apr, 2014 [facility] [address] [id number] [address] [place] [phone] 04 Apr, 2014 [facility] [address] [id number] [facility] [place] [address] Mar, [facility] [address] [id number] [facility] [place] [address] Mar, [facility] [address] [id number] [facility] [place] [address] Mar, [facility] [address] [id number] [facility] [place] [address] Mar, [facility] [address] [id number] [facility] [place] [address] Mar, [facility] [address] [id number] [facility] [place] [address] Mar, [facility] [address] [id number] [facility] [place] [address] Mar, [facility] [address] [id number] [address] [place] [address], [place] [address] Mar, [facility] [address] [id number] [address] [place] [address], [place] [address] Mar, [facility] [address] [id number] [address] [place] [address], [place] [address] Mar, [facility] [address] [id number] [address] [place] [address], [place] [address] Jan, [facility] [address] [id number] [address] [place] [address], [place] [address] Jan, [facility] [address] [id number] [address] [place] [address], [place] [address] December, [facility] [address] [id number] [address] [place] [address], [place] [address] December, [facility] [address] [id number] [address] [place] [address], [place] [address] Nov, [facility] [address] [id number] [address] [place] [address], [place] [address] Nov, [facility] [address] [id number] [address] [place] [address], [place] [address] Sep, [facility] [address] [id number] [address] [place] [address], [place] [address] Sep, [facility] [address] [id number] [address] [place] [address], [place] [address] Sep, [facility] [address] [id number] [address] [place] [address], [place] [address] Sep, [facility] [address] [id number] [address] [place] [address], [place] [address] Jun, [facility] [address] [id number] [address] [place] [address], [place] [address] Jun, [facility] [address] [id number] [address] [place] [address], [place] [address] Jun, [facility] [address] [id number] [address] [place] [address], [place] [address] Jun, [facility] [address] [id number] [address] [place] [address], [place] [address] May, [facility] [address] [id number] [address] [place] [address], [place] [address] May, [facility] [address] [id number] [address] [place] [address], [place] [address] Apr, [facility] [address] [id number] [address] [place] [address], [place] [address] Mar, [facility] [address] [id number] [address] [place] [address], [place] [address] Mar, [facility] [address] [id number] [address] [place] [address], [place] [id number] Mar, [facility] [address] [id number] [address] [place] [address], [place] [id number] Mar, [facility] [address] [id number] [address] [place] [address], [place] [id number] 05 Mar, 2013 [facility] [address] [id number] [address] [place] [address], [place] [id number] 08 Jan, 2013 [facility] [address] [id number] [address] [place] [address], [place] [id number] Jan, [facility] [address] [id number] [address] [place] [address], [place] [id number] Jan, [facility] [address] [id number] [address] [place] [address], [place] [id number] December, [facility] [address] [id number] [address] [place] [address], [place] [id number] Oct, [facility] [address] [id number] [address] [place] [address], [place] [id number] Oct, [facility] [address] [id number] [address] [place] [address], [place] [id number] Oct, [facility] [address] [id number] [address] [place] [address], [place] [id number] Oct, [facility] [address] [id number] [address] [place] [address], [place] [id number] Aug, [facility] [address] [id number] [address] [place] [address], [place] [id number] 16 Jun, 2012 [facility] [address] [id number] [address] [place] [address], [place] [id number] 16 Jun, 2012 [facility] [address] [id number] [address] [place] [address], [place] [id number] 14 Jun, 2012 [facility] [address] [id number] [address] [place] [address], [place] [id number] 14 Jun, 2012 [facility] [address] [id number] [address] [place] [address], [place] [id number] 05 May, 2012 [facility] [address] [id number] [address] [place] [address], [place] [id number] Apr, [facility] [address] [id number] [address] [place] [address], [place] [id number] Mar, [facility] [address] [id number] [address] [place] [address], [place] [id number] Jan, [facility] [address] [id number] [address] [place] [address], [place] [id number] Jan, [facility] [address] [id number] [address] [place] [address], [place] [id number] December, [facility] [address] [address] [id number] [address] [place] [address], [place] [id number] December, [facility] [address] [id number] [address] [place] [address], [place] [id number] December, [facility] [address] [id number] [address] [place] [address], [place] [id number] December, [facility] [address] [id number] [address] [place] [address], [place] [id number] Nov, [facility] [address] [id number] [address] [place] [address], [place] [id number] Oct, [facility] [address] [id number] [address] [place] [address], [place] [id number] Sep, [facility] [address] [id number] [address] [place] [address], [place] [id number] Sep, [facility] [address] [id number] [address] [place] [address], [place] [id number] Sep, [facility] [address] [id number] [address] [place] [address], [place] [id number] Sep, [facility] [address] [id number] [address] [place] [address], [place] [id number] Aug, [facility] [address] [id number] [address] [place] [address], [place] [id number] Jun, [facility] [address] [id number] [address] [place] [id number] May, [facility] [address] [facility] [id number] [address] [place] [id number] Mar, [facility] [address] [facility] [id number] [address] [place] [id number] Jun, [facility] [address] [facility] [id number] [address] [place] [id number] May, [facility] [address] [facility] [id number] [address] [place] [id number] May, IMMUNIZATIONS No Known Immunizations SOCIAL HISTORY [...]
--- OUTSIDE RECORDS SUMMARY | 2020-02-21 11:47 | XMS REPORT ---
Author Author Tarik POTTS Organization [facility] Address [address] [place] [address] Care Team Providers Care Senior International Tax Manager Name Role Phone ROMA POTTS Unavailable PROBLEMS Type Condition ICD9-CM Code SUG23-SW Code Onset Dates Condition S tatus SNOMED Code Problem Hearing loss of both ears H91.93 Acti ve 92752458 Problem Pressure injury of left buttock, stage 2 L89.322 Active 417322713 Problem Hyperlipidemia, unspecified hyperlipidemia type E7 8.5 Active 21687452 Problem Acquired hypothyroidism E03.9 Active 431778425 Problem Pure hypercholesterolemia E78.0 Acti ve 431996673 Problem Gastroesophageal reflux disease without esophagitis K21.9 Active 056640144 Problem Depression, major, 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 Active [id number] ALLERGIES No Information ENCOUNTERS Encounter Location Date Diagnosis [facility] [address] [facility] [id number] [address] [place] [address] Jan, [facility] [address] [facility] [id number] [address] [place] [address] Jan, Hyperlipidemia, unspecified hyperlipidemia type E78.5 and Morbid obesity E66.01 [facility] [address] [facility] [id number] [address] [place] [address] Jan, [facility] [address] [facility] [id number] [address] [place] [address] December, [facility] [address] [facility] [id number] [address] [place] [address] December, [facility] [address] [facility] [id number] [address] [place] [address] December, [facility] [address] [facility] [id number] [address] [place] [address] December, Wound of left lower extremit y, subsequent encounter S81.802D [facility] [address] [id number] [address] [place] [address] Nov, [facility] [address] [id number] [address] [place] [address] Nov, Blister of left lower extrem ity without infection, initial encounter S80.822A and Morbid obesity E66.01 [facility] [address] [id number] [address] [place] [address] Nov, [facility] [address] [id number] [address] [place] [address] Nov, [facility] [address] [id number] [address] [place] [address] Nov, [facility] [address] [id number] [address] [place] [address] Nov, [facility] [address] [id number] [address] [place] [address] Nov, [facility] [address] [id number] [address] [place] [address] Nov, [facility] [address] [id number] [address] [place] [address] Oct, [facility] [address] [id number] [address] [place] [address] Oct, Depression, major, in remiss ion F32.5 [facility] [address] [id number] [address] [place] [address] Oct, [facility] [address] [id number] [address] [place] [address] Oct, [facility] [address] [id number] [address] [place] [address] Oct, [facility] [address] [id number] [address] [place] [address] Oct, Morbid obesity E66.01 and Pr essure injury of left buttock, stage 2 L89.322 [place] [address] [facility] [id number] [address] [place] [address] Oct, [place] [address] [facility] [id number] [address] [place] [address] Oct, [place] [address] [facility] [id number] [address] [place] [address] Oct, [place] [address] [facility] [id number] [address] [place] [address] Oct, Pressure injury of other sit e, stage 2 L89.892 and Morbid obesity E66.01 [place] [address] [facility] [id number] [address] [place] [address] Sep, Cellulitis of other specifie d site L03.818 and BMI 40.0-44.9, adult Z68.41 [place] [address] [facility] [id number] [address] [place] [address] 13 Sep, 2018 Scab R23.4 and BMI 40.0-44.9 , adult Z68.41 [place] [address] [place] [id number] [address] [place] [address] Jun, Major depression in critical access hospital n F32.5 [place] [address] [place] [id number] [address] [place] [address] Apr, [place] [address] [facility] [id number] [address] [place] [address] 24 Apr, 2018 Encounter for breast cancer screening other than mammogram Z12.39 ; Encounter for immunization Z23 and Colon cancer screening Z12.11 [place] [address] [facility] [id number] [address] [place] [address] Mar, Major depression in partial remission F32.4 and BMI 40.0-44.9, adult Z68.41 [place] [address] [id number] [address] [place] [address] Mar, [facility] [address] [id number] [address] [place] [address] Mar, Acquired hypothyroidism E03. 9 [facility] [address] [id number] [address] [place] [address] Mar, Pain in left knee M25.562 ; Other chronic pain G89.29 and Gastroesophageal reflux disease without esophagitis K21.9 [facility] [address] [id number] [address] [place] [address] Jan, [facility] [address] [id number] [address] [place] [address] Jan, Acquired hypothyroidism E03. 9 [facility] [address] [id number] [address] [place] [address] Jan, [facility] [address] [facility] [id number] [address] [place] [address] Jan, Acquired hypothyroidism E03. 9 [facility] [address] [id number] [address] [place] [address] December, Major depressive disorder in full remission, unspecified whether recurrent F32.5 [facility] [address] [id number] [address] [place] [address] Nov, Acquired hypothyroidism E03. 9 [facility] [address] [facility] [id number] [address] [place] [address] Nov, Pure hypercholesterolemia E7 8.0 ; Peripheral edema R60.9 and Acquired hypothyroidism E03.9 [facility] [address] [id number] [address] [place] [address] Oct, Mild acid reflux K21.9 [facility] [address] [facility] [id number] [address] [place] [address] Sep, Major depressive disorder, s glenny episode, in partial remission F32.4 and Long-term use of high-risk medication Z79.899 [place] [address] [id number] [address] [place] [address] Aug, Encounter for immunization Z 23 [facility] [address] [id number] [address] [place] [address] Jul, [facility] [address] [id number] [address] [place] [address] Jun, Medicare annual wellness vis it, initial Z00.00 ; BMI 40.0-44.9, adult Z68.41 and Encounter for immunization Z23 [facility] [address] [id number] [address] [place] [address] May, [facility] [address] [id number] [address] [place] [address] May, Encounter for immunization Z 23 [facility] [address] [id number] [address] [place] [address] May, Major depression in partial remission F32.4 [facility] [address] [id number] [address] [place] [address] Apr, Hearing loss H91.90 ; Encoun ter for immunization Z23 and Encounter for screening mammogram for breast cancer Z12.31 [facility] [address] [id number] [address] [place] [address] Mar, Acquired hypothyroidism E03. 9 [facility] [address] [id number] [address] [place] [address] Jan, Acquired hypothyroidism E03. 9 [facility] [address] [id number] [address] [place] [address] Jan, Acute midline low back pain without sciatica M54.5 [facility] [address] [id number] [address] [place] [address] Jan, Peripheral edema R60.9 [facility] [address] [facility] [id number] [address] [place] [address] Jan, Major depression in partial remission F32.4 [place] [address] [id number] [address] [place] [address] Jan, Localized edema R60.0 [facility] [address] [id number] [address] [place] [address] Nov, Pure hypercholesterolemia E7 8.0 [facility] [address] [id number] [address] [place] [address] Nov, Pure hypercholesterolemia E7 8.0 [facility] [address] [id number] [address] [place] [address] Nov, Peripheral edema R60.9 [facility] [address] [id number] [address] [place] [address] Oct, Major depression in partial remission F32.4 [facility] [address] [facility] [id number] [address] [place] [address] Aug, [facility] [address] [facility] [id number] [address] [place] [address] Aug, Elevated blood pressure read ing R03.0 [facility] [address] [id number] [address] [place] [address] Aug, [facility] [address] [facility] [id number] [address] [place] [address] Jun, Major depression in partial remission F32.4 [facility] [address] [facility] [id number] [address] [place] [address] Apr, Major depressive disorder, r ecurrent episode, mild F33.0 [facility] [address] [facility] [id number] [address] [place] [address] Mar, Encounter for well woman exa m with routine gynecological exam Z01.419 and Breast cancer screening Z12.39 [facility] [address] [facility] [id number] [address] [place] [address] Jan, Hypothyroidism, unspecified type E03.9 [facility] [address] [facility] [id number] [address] [place] [address] Jan, Major depressive disorder, r ecurrent episode, mild F33.0 [facility] [address] [id number] [address] [place] [address] 30 Jan, 2016 Abscess L02.91 [facility] [address] [id number] [address] [place] [address] 22 Jan, 2016 Furuncle L02.92 [facility] [address] [id number] [address] [place] [address] 16 Jan, 2016 Major depression in partial remission F32.4 [facility] [address] [id number] [address] [place] [address] 13 Jan, 2016 Major depressive disorder, r ecurrent episode, mild F33.0 [facility] [address] [id number] [address] [place] [address] December, Acute bacterial conjunctivit is of left eye H10.022 [facility] [address] [id number] [address] [place] [address] December, Major depressive disorder, r ecurrent episode, mild F33.0 [facility] [address] [id number] [address] [place] [address] Nov, [facility] [address] [id number] [address] [place] [address] Nov, Major depressive disorder, r ecurrent episode, mild F33.0 [facility] [address] [id number] [address] [place] [address] 18 Nov, 2015 Hearing loss H91.90 [facility] [address] [id number] [address] [place] [address] 17 Oct, 2015 Major depression in partial remission F32.4 [facility] [address] [id number] [address] [place] [address] 15 Oct, 2015 Pneumonia J18.9 [facility] [address] [id number] [address] [place] [address] Oct, Influenza A J10.1 ; Fever, u nspecified R50.9 ; Conjunctivitis H10.9 and Cough R05 [place] [address] [address] Oct, Major depressive disorder, r ecurrent episode, severe, 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 [place] [address] [address] Aug, [place] [address] [id number] Aug, Acquired hypothyroidism E03. 9 and Pure hypercholesterolemia E78.0 [place] [address] [address] Aug, Major depressive disorder, r ecurrent episode, severe, 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 [place] [address] [address] Jul, [place] [address] [address] Jul, Major depressive disorder, r ecurrent episode, severe, 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 [place] [address] [address] Jun, Major depressive disorder, r ecurrent episode, severe, 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 [place] [address] [place] [id number] [address] [place] [address] May, [place] [address] [address] May, Major depressive disorder, r ecurrent episode, severe, 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 [place] [address] [place] [id number] [place] [address] May, Major depressive disorder, r ecurrent episode, severe, 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 [place] [address] [place] [id number] [address] [place] [address] Apr, [facility] [address] [facility] [id number] [address] [place] [address] Apr, Depressive disorder, not els ewhere classified 311 and Unspecified psychosis 298.9 [facility] [address] [facility] [id number] [address] [place] [address] Apr, Depression 311 and Hard of h earing 389.9 [facility] [address] [facility] [id number] [address] [place] [address] Apr, Schizoaffective disorder 295 .70 [place] [address] [facility] [id number] [address] [place] [address] 08 Apr, 2015 Major depressive disorder, r ecurrent episode, severe, specified as with psychotic behavior 296.34 [place] [address] [place] [id number] [address] [place] [address] Apr, Psychosis 298.9 and Depressi on 311 [place] [address] [place] [id number] [address] [place] [address] Apr, Depressive disorder, not els ewhere classified 311 and Unspecified psychosis 298.9 [place] [address] [facility] [id number] [address] [place] [address] Mar, Screening for cervical cance r V76.2 ; Well woman exam with routine gynecological exam V72.31 ; Colon cancer screening V76.51 ; Breast cancer screening V76.10 ; Irritable bowel syndrome 564.1 and Psychosis 298.9 [facility] [address] [facility] [id number] [address] [place] [address] Mar, Psychosis 298.9 [facility] [address] [facility] [id number] [address] [place] [address] Mar, Unspecified psychosis 298.9 [facility] [address] [facility] [id number] [address] [place] [address] Nov, [place] [address] [facility] [id number] [address] [place] [address] Nov, [facility] [address] [id number] [address] [place] [address], [place] [address] Oct, [facility] [address] [id number] [address] [place] [address], [place] [address] Oct, [facility] [address] [id number] [address] [place] [address], [place] [address] Jul, [facility] [address] [id number] [address] [place] [address], [place] [address] Jul, [facility] [address] [id number] [address] [place] [address], [place] [address] May, [facility] [address] [id number] [address] [place] [address], [place] [address] Apr, [facility] [address] [id number] [address] [place] [address], [place] [address] Apr, [facility] [address] [id number] [address] [place] [address], [place] [address] Apr, [facility] [address] [id number] [address] [place] [address], [place] [address] Apr, [facility] [address] [id number] [address] [place] [address], [place] [address] Apr, [facility] [address] [id number] [address] [place] [address], [place] [address] Mar, [facility] [address] [id number] [address] [place] [address], [place] [address] Mar, [facility] [address] [id number] [address] [place] [address], [place] [address] Mar, [facility] [address] [id number] [address] [place] [address], [place] [address] Mar, [facility] [address] [id number] [address] [place] [address], [place] [address] Mar, [facility] [address] [id number] [address] [place] [address], [place] [address] Mar, [facility] [address] [id number] [address] [place] [address] Mar, [facility] [address] [id number] [address] [place] [address], [place] [address] Mar, [facility] [address] [id number] [address] [place] [address], [place] [address] Mar, [facility] [address] [id number] [address] [place] [address], [place] [address] Mar, [facility] [address] [id number] [address] [place] [address], [place] [address] Jan, [facility] [address] [id number] [address] [place] [address], [place] [address] Jan, [facility] [address] [id number] [address] [place] [address], [place] [address] December, [facility] [address] [id number] [address] [place] [address], [place] [address] December, [facility] [address] [id number] [address] [place] [address], [place] [address] Nov, [facility] [address] [id number] [address] [place] [address], [place] [address] Nov, [facility] [address] [id number] [address] [place] [address], [place] [address] Sep, [facility] [address] [id number] [address] [place] [address], [place] [address] Sep, [facility] [address] [id number] [address] [place] [address], [place] [address] Sep, [facility] [address] [id number] [address] [place] [address], [place] [address] Sep, [facility] [address] [id number] [address] [place] [address], [place] [address] Jun, [facility] [address] [id number] [address] [place] [address], [place] [address] 14 Jun, 2013 [facility] [address] [id number] [address] [place] [address], [place] [address] Jun, [facility] [address] [id number] [address] [place] [address], [place] [address] Jun, [facility] [address] [id number] [address] [place] [address], [place] [address] May, [facility] [address] [id number] [address] [place] [address], [place] [address] May, [facility] [address] [id number] [address] [place] [address], [place] [address] Apr, [facility] [address] [id number] [address] [place] [address], [place] [address] Mar, [facility] [address] [id number] [address] [place] [address], [place] [address] Mar, [facility] [address] [id number] [address] [place] [address], [place] [address] Mar, [facility] [address] [id number] [address] [place] [address], [place] [address] Mar, [facility] [address] [id number] [address] [place] [address], [place] [address] Mar, [facility] [address] [id number] [address] [place] [address], [place] [address] Jan, [facility] [address] [id number] [address] [place] [address], [place] [address] Jan, [facility] [address] [id number] [address] [place] [address], [place] [address] Jan, [facility] [address] [id number] [address] [place] [address], [place] [address] December, [facility] [address] [id number] [address] [place] [address], [place] [address] 13 Oct, 2012 [facility] [address] [id number] [address] [place] [address], [place] [address] 12 Oct, 2012 [facility] [address] [id number] [address] [place] [address], [place] [address] Oct, [facility] [address] [id number] [address] [place] [address], [place] [address] Oct, [facility] [address] [id number] [address] [place] [address], [place] [address] Aug, [facility] [address] [id number] [address] [place] [address], [place] [address] Jun, [facility] [address] [id number] [address] [place] [address], [place] [address] Jun, [facility] [address] [id number] [address] [place] [address], [place] [address] Jun, [facility] [address] [id number] [address] [place] [address], [place] [address] Jun, [facility] [address] [id number] [address] [place] [address], [place] [address] 05 May, 2012 [facility] [address] [id number] [address] [place] [address], [place] [address] Apr, [facility] [address] [id number] [address] [place] [address], [place] [address] Mar, [facility] [address] [id number] [address] [place] [address], [place] [address] Jan, [facility] [address] [id number] [address] [place] [address], [place] [address] Jan, [facility] [address] [id number] [address] [place] [address], [place] [address] December, [facility] [address] [id number] [address] [place] [address], [place] [address] December, [facility] [address] [id number] [address] [place] [address] December, [facility] [address] [id number] [address] [place] [id number] December, [facility] [address] [id number] [address] [place] [id number] Nov, [facility] [address] [id number] [address] [place] [address] Oct, [facility] [address] [id number] [address] [place] [id number] Sep, [facility] [address] [id number] [address] [place] [address] Sep, [facility] [address] [id number] [address] [place] [address] Sep, [facility] [address] [id number] [address] [place] [address] Sep, [facility] [address] [id number] [address] [place] [address] Aug, [facility] [address] [id number] [address] [place] [id number] Jun, [facility] [address] [id number] [address] [place] [id number] May, [facility] [address] [id number] [address] [place] [address] Mar, [facility] [facility] [address] [id number] [address] [place] [id number] Jun, [facility] [address] [id number] [address] [place] [id number] May, [facility] [address] [id number] [address] [place] [id number] May, IMMUNIZATIONS No Known Immunizations SOCIAL HISTORY Never Assessed REASON FOR VISIT PLAN OF CARE VITAL SIGNS Height 65 in 2014-10-17 Weight 256.31 lbs 2014-10-17 Temperature 97.9 degrees Fahrenheit 2014-10-17 Heart Rate 80 bpm 2014-10-17 Respiratory Rate 18 2014-10-17 Blood pressure systolic 124 mmHg 2014-10-17 Blood pressure diastolic 72 mmHg 2014-10-17 MEDICATIONS Unknown Medications RESULTS No Results PROCEDURES [...]
--- OUTSIDE RECORDS SUMMARY | 2020-02-21 11:47 | XMS REPORT ---
Author Author Tarik POTTS Organization [facility] Address [address] [place] [address] Care Team Providers Care [place] Filler Name Role Phone ROMA POTTS Unavailable PROBLEMS Type Condition ICD9-CM Code [id number] Code Onset Dates Condition S tatus SNOMED Code Problem Hearing loss of both ears H91.93 Acti ve 80833554 Problem Pressure injury of left buttock, stage 2 L89.322 Active 461410705 Problem Hyperlipidemia, unspecified hyperlipidemia type E7 8.5 Active 49321539 Problem Acquired hypothyroidism E03.9 Active 098546742 Problem Pure hypercholesterolemia E78.0 Acti ve 911678751 Problem Gastroesophageal reflux disease without esophagitis K21.9 Active 018976817 Problem Depression, major, 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 Active 72108799 ALLERGIES No Information ENCOUNTERS Encounter Location Date Diagnosis [place] [id number] [address] [place] [id number] Jan, [place] [id number] [address] [place] [id number] Jan, Encounter for Medicare annua l wellness exam Z00.00 ; Hyperlipidemia, unspecified hyperlipidemia type E78.5 ; Depression, major, 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 ; Pressure injury of left buttock, stage 2 L89.322 ; Ga stroesophageal reflux disease without esophagitis K21.9 ; Acquired hypothyroidism E03.9 and Hearing loss of both ears H91.93 [place] [id number] [address] [place] [address] Jan, Hyperlipidemia, unspecified hyperlipidemia type E78.5 and Morbid obesity E66.01 [place] [id number] [address] [place] [address] Jan, [address] [id number] [address] [place] [address] December, [facility] [address] [id number] [address] [place] [address] December, [facility] [address] [id number] [address] [place] [address] December, [facility] [address] [id number] [address] [place] [address] December, Wound of left lower extremit y, subsequent encounter S81.802D [facility] [address] [id number] [address] [place] [address] Nov, [facility] [address] [id number] [address] [place] [address] Nov, Blister of left lower extrem ity without infection, initial encounter S80.822A and Morbid obesity E66.01 [facility] [address] [id number] [address] [place] [address] Nov, [facility] [address] [id number] [address] [place] [address] Nov, [facility] [address] [id number] [address] [place] [address] Nov, [facility] [address] [id number] [address] [place] [address] Nov, [facility] [address] [id number] [address] [place] [address] Nov, [facility] [address] [id number] [address] [place] [id number] Nov, [facility] [address] [id number] [address] [place] [address] Oct, [facility] [address] [id number] [address] [place] [address] Oct, Depression, major, in remiss ion F32.5 [facility] [address] [id number] [address] [place] [address] Oct, [facility] [address] [id number] [address] [place] [address] Oct, [facility] [address] [facility] [id number] [address] [place] [address] Oct, [facility] [address] [facility] [id number] [address] [place] [address] Oct, Morbid obesity E66.01 and Pr essure injury of left buttock, stage 2 L89.322 [facility] [address] [id number] [address] [place] [address] Oct, [facility] [address] [facility] [id number] [address] [place] [address] Oct, [facility] [address] [place] [id number] [address] [place] [address] Oct, [facility] [address] [facility] [id number] [address] [place] [address] Oct, Pressure injury of other sit e, stage 2 L89.892 and Morbid obesity E66.01 [facility] [address] [facility] [id number] [address] [place] [address] Sep, Cellulitis of other specifie d site L03.818 and BMI 40.0-44.9, adult Z68.41 [facility] [address] [place] [id number] [address] [place] [address] Sep, Scab R23.4 and BMI 40.0-44.9 , adult Z68.41 [facility] [address] [place] [id number] [address] [place] [address] Jun, Major depression in [facility] n F32.5 [facility] [address] [facility] [id number] [address] [place] [address] Apr, [facility] [address] [place] [id number] [address] [place] [address] Apr, Encounter for breast cancer screening other than mammogram Z12.39 ; Encounter for immunization Z23 and Colon cancer screening Z12.11 [place] [address] [place] [id number] [address] [place] [address] 30 Mar, 2018 Major depression in partial remission F32.4 and BMI 40.0-44.9, adult Z68.41 [place] [address] [place] [id number] [address] [place] [address] Mar, [place] [address] [place] [id number] [address] [place] [address] Mar, Acquired hypothyroidism E03. 9 [place] [address] [place] [id number] [place] [address] Mar, Pain in left knee M25.562 ; Other chronic pain G89.29 and Gastroesophageal reflux disease without esophagitis K21.9 [place] [address] [place] [id number] [address] [place] [address] Jan, [place] [address] [place] [id number] [address] [place] [address] Jan, Acquired hypothyroidism E03. 9 [place] [address] [place] [id number] [address] [place] [address] Jan, [place] [address] [place] [id number] [address] [place] [address] Jan, Acquired hypothyroidism E03. 9 [place] [address] [place] [id number] [address] [place] [address] December, Major depressive disorder in full remission, unspecified whether recurrent F32.5 [place] [address] [place] [id number] [address] [place] [address] Nov, Acquired hypothyroidism E03. 9 [place] [address] [place] [id number] [address] [place] [address] Nov, Pure hypercholesterolemia E7 8.0 ; Peripheral edema R60.9 and Acquired hypothyroidism E03.9 [facility] [address] [facility] [id number] [address] [place] [address] Oct, Mild acid reflux K21.9 [facility] [address] [facility] [id number] [address] [place] [address] Sep, Major depressive disorder, s glenny episode, in partial remission F32.4 and Long-term use of high-risk medication Z79.899 [place] [address] [facility] [id number] [address] [place] [address] Aug, Encounter for immunization Z 23 [place] [address] [facility] [id number] [address] [place] [address] Jul, [place] [address] [place] [id number] [address] [place] [address] Jun, Medicare annual wellness vis it, initial Z00.00 ; BMI 40.0-44.9, adult Z68.41 and Encounter for immunization Z23 [place] [address] [facility] [id number] [address] [place] [address] May, [place] [address] [facility] [id number] [address] [place] [address] May, Encounter for immunization Z 23 [place] [address] [facility] [id number] [address] [place] [address] May, Major depression in partial remission F32.4 [place] [address] [facility] [id number] [address] [place] [address] Apr, Hearing loss H91.90 ; Encoun ter for immunization Z23 and Encounter for screening mammogram for breast cancer Z12.31 [place] [address] [facility] [id number] [address] [place] [address] Mar, Acquired hypothyroidism E03. 9 [place] [address] [facility] [id number] [address] [place] [address] Jan, Acquired hypothyroidism E03. 9 [place] [address] [id number] [address] [place] [address] Jan, Acute midline low back pain without sciatica M54.5 [facility] [address] [id number] [address] [place] [address] Jan, Peripheral edema R60.9 [facility] [address] [id number] [address] [place] [address] Jan, Major depression in partial remission F32.4 [facility] [address] [id number] [address] [place] [address] Jan, Localized edema R60.0 [facility] [address] [id number] [address] [place] [address] Nov, Pure hypercholesterolemia E7 8.0 [facility] [address] [id number] [address] [place] [address] Nov, Pure hypercholesterolemia E7 8.0 [facility] [address] [id number] [address] [place] [address] Nov, Peripheral edema R60.9 [facility] [address] [id number] [address] [place] [address] Oct, Major depression in partial remission F32.4 [facility] [address] [id number] [address] [place] [address] Aug, [facility] [address] [id number] [address] [place] [address] Aug, Elevated blood pressure read ing R03.0 [facility] [address] [id number] [address] [place] [address] Aug, [facility] [address] [id number] [address] [place] [address] Jun, Major depression in partial remission F32.4 [facility] [address] [id number] [address] [place] [address] Apr, Major depressive disorder, r ecurrent episode, mild F33.0 [facility] [address] [facility] [id number] [address] [place] [address] Mar, Encounter for well woman reta rios with routine gynecological exam Z01.419 and Breast cancer screening Z12.39 [facility] [address] [facility] [id number] [address] [place] [address] 28 Feb, 2016 Hypothyroidism, unspecified type E03.9 [facility] [address] [facility] [id number] [address] [place] [address] 12 Feb, 2016 Major depressive disorder, r ecurrent episode, mild F33.0 [facility] [address] [facility] [id number] [address] [place] [address] 30 Jan, 2016 Abscess L02.91 [place] [address] [facility] [id number] [address] [place] [address] Jan, Furuncle L02.92 [place] [address] [facility] [id number] [address] [place] [address] 16 Jan, 2016 Major depression in partial remission F32.4 [facility] [address] [facility] [id number] [address] [place] [address] 13 Jan, 2016 Major depressive disorder, r ecurrent episode, mild F33.0 [facility] [address] [facility] [id number] [address] [place] [address] December, Acute bacterial conjunctivit is of left eye H10.022 [facility] [address] [facility] [id number] [address] [place] [address] December, Major depressive disorder, r ecurrent episode, mild F33.0 [facility] [address] [id number] [address] [place] [address] Nov, [place] [address] [facility] [id number] [address] [place] [address] Nov, Major depressive disorder, r ecurrent episode, mild F33.0 [facility] [address] [facility] [id number] [address] [place] [address] 18 Nov, 2015 Hearing loss H91.90 [facility] [address] [facility] [id number] [address] [place] [address] 17 Oct, 2015 Major depression in partial remission F32.4 [facility] [address] [facility] [id number] [address] [place] [address] 15 Oct, 2015 Pneumonia J18.9 [facility] [address] [facility] [id number] [address] [place] [address] 10 Oct, 2015 Influenza A J10.1 ; Fever, u nspecified R50.9 ; Conjunctivitis H10.9 and Cough R05 [facility] [address] [place] [id number] [address] [place] [address] 10 Oct, 2015 Major depressive disorder, r ecurrent episode, severe, 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 [place] [address] [place] [id number] [address] [place] [address] Aug, [place] [address] [place] [id number] [place] [address] Aug, Acquired hypothyroidism E03. 9 and Pure hypercholesterolemia E78.0 [place] [address] [place] [id number] [address] [place] [address] Aug, Major depressive disorder, r ecurrent episode, severe, 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 [place] [address] [place] [id number] [address] [place] [address] Jul, [place] [address] [place] [id number] [address] [place] [address] Jul, Major depressive disorder, r ecurrent episode, severe, 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 [place] [address] [place] [id number] [address] [place] [id number] Jun, Major depressive disorder, r ecurrent episode, severe, 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 [place] [address] [place] [id number] [address] [place] [address] May, [place] [address] [place] [id number] [place] [address] [place] [address] May, Major depressive disorder, r ecurrent episode, severe, 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 [place] [address] [place] [id number] [place] [address] May, Major depressive disorder, r ecurrent episode, severe, 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 [place] [address] [place] [id number] [address] [place] [address] Apr, [place] [address] [place] [id number] [place] [address] Apr, Depressive disorder, not els ewhere classified 311 and Unspecified psychosis 298.9 [place] [address] [place] [id number] [place] [address] Apr, Depression 311 and Hard of h earing 389.9 [place] [address] [address] Apr, Schizoaffective disorder 295 .70 [place] [address] [place] [id number] [address] [place] [address] Apr, Major depressive disorder, r ecurrent episode, severe, specified as with psychotic behavior 296.34 [place] [address] [place] [id number] [address] [place] [address] Apr, Psychosis 298.9 and Depressi on 311 [place] [address] [place] [id number] [address] [place] [address] Apr, Depressive disorder, not els ewhere classified 311 and Unspecified psychosis 298.9 [place] [address] [place] [id number] [address] [place] [address] Mar, Screening for cervical cance r V76.2 ; Well woman exam with routine gynecological exam V72.31 ; Colon cancer screening V76.51 ; Breast cancer screening V76.10 ; Irritable bowel syndrome 564.1 and Psychosis 298.9 [place] [address] [place] [id number] [address] [place] [address] Mar, Psychosis 298.9 [facility] [address] [id number] [address] [place] [address] Mar, Unspecified psychosis 298.9 [facility] [address] [id number] [address] [place] [id number] 14 Nov, 2014 [facility] [address] [id number] [address] [place] [place] [address], [place] [address] Nov, [facility] [address] [id number] [address] [place] [address] Oct, [facility] [address] [id number] [address] [place] [place] [address], [place] [address] Oct, [facility] [address] [id number] [address] [place] [address] Jul, [facility] [address] [id number] [address] [place] [address] Jul, [facility] [address] [id number] [address] [place] [address] May, [facility] [address] [id number] [address] [place] [address] Apr, [facility] [address] [id number] [address] [place] [address] Apr, [facility] [address] [id number] [address] [place] [address] Apr, [facility] [address] [id number] [address] [place] [id number] 05 Apr, 2014 [facility] [address] [id number] [address] [place] [id number] Apr, [facility] [address] [id number] [address] [place] [address] Mar, [facility] [address] [id number] [address] [place] [address], [place] [address] Mar, [facility] [address] [id number] [facility] [place] [address] Mar, [facility] [address] [id number] [facility] [place] [address] Mar, [facility] [address] [id number] [facility] [place] [address] Mar, [facility] [address] [id number] [facility] [place] [address] Mar, [facility] [address] [id number] [facility] [place] [address] Mar, [facility] [address] [id number] [address] [place] [address], [place] [address] Mar, [facility] [address] [id number] [address] [place] [address], [place] [address] Mar, [facility] [address] [id number] [address] [place] [address], [place] [address] Mar, [facility] [address] [id number] [address] [place] [address], [place] [address] Jan, [facility] [address] [id number] [address] [place] [address], [place] [address] Jan, [facility] [address] [id number] [address] [place] [address], [place] [address] December, [facility] [address] [id number] [address] [place] [address], [place] [address] December, [facility] [address] [id number] [address] [place] [address], [place] [address] Nov, [facility] [address] [id number] [address] [place] [address], [place] [address] Nov, [facility] [address] [id number] [address] [place] [address], [place] [address] Sep, [facility] [address] [id number] [address] [place] [address], [place] [address] Sep, [facility] [address] [id number] [address] [place] [address], [place] [address] Sep, [facility] [address] [id number] [address] [place] [address], [place] [address] Sep, [facility] [address] [id number] [address] [place] [address], [place] [address] Jun, [facility] [address] [id number] [address] [place] [address], [place] [address] Jun, [facility] [address] [id number] [address] [place] [address], [place] [address] Jun, [facility] [address] [id number] [address] [place] [address], [place] [address] Jun, [facility] [address] [id number] [address] [place] [address], [place] [address] May, [facility] [address] [id number] [address] [place] [address], [place] [address] May, [facility] [address] [id number] [address] [place] [address], [place] [address] Apr, [facility] [address] [id number] [address] [place] [address], [place] [address] Mar, [facility] [address] [id number] [address] [place] [place] [address], [place] [address] Mar, [facility] [address] [id number] [address] [place] [address], [place] [address] Mar, [facility] [address] [id number] [address] [place] [address], [place] [address] Mar, [facility] [address] [id number] [address] [place] [place] [address], [place] [address] Mar, [facility] [address] [id number] [address] [place] [address], [place] [address] Jan, [facility] [address] [id number] [address] [place] [address], [place] [id number] 24 Jan, 2013 [facility] [address] [id number] [address] [place] [address], [place] [address] Jan, [facility] [address] [id number] [address] [place] [address], [place] [address] December, [facility] [address] [id number] [address] [place] [address], [place] [address] Oct, [facility] [address] [id number] [address] [place] [address], [place] [address] Oct, [facility] [address] [id number] [address] [place] [address], [place] [address] Oct, [facility] [address] [id number] [address] [place] [address], [place] [address] Oct, [facility] [address] [id number] [address] [place] [address], [place] [address] Aug, [facility] [address] [id number] [address] [place] [address], [place] [address] 16 Jun, 2012 [facility] [address] [id number] [address] [place] [address], [place] [address] 16 Jun, 2012 [facility] [address] [id number] [address] [place] [address], [place] [id number] 14 Jun, 2012 [facility] [address] [id number] [address] [place] [address], [place] [address] 14 Jun, 2012 [facility] [address] [id number] [address] [place] [address], [place] [id number] 05 May, 2012 [facility] [address] [id number] [address] [place] [address], [place] [address] 10 Apr, 2012 [facility] [address] [id number] [address] [place] [address], [place] [address] Mar, [facility] [address] [id number] [address] [place] [place] [address], [place] [address] Jan, [facility] [address] [id number] [address] [place] [address], [place] [address] Jan, [facility] [address] [id number] [address] [place] [address], [place] [address] December, [facility] [address] [address] [id number] [address] [place] [address], [place] [id number] December, [facility] [address] [id number] [address] [place] [address], [place] [id number] December, [facility] [address] [id number] [address] [address], [place] [id number] December, [facility] [address] [id number] [address] [place] [address], [place] [id number] Nov, [facility] [address] [id number] [address] [place] [address], [place] [id number] Oct, [facility] [address] [id number] [address] [place] [address], [place] [id number] Sep, [facility] [address] [id number] [address] [place] [address], [place] [id number] Sep, [facility] [address] [id number] [address] [place] [address], [place] [id number] Sep, [facility] [address] [id number] [address] [place] [address], [place] [id number] Sep, [facility] [address] [id number] [address] [place] [address], [place] [id number] Aug, [facility] [address] [id number] [address] [place] [address], [place] [id number] Jun, [facility] [address] [id number] [address] [place] [address], [place] [id number] May, [facility] [address] [id number] [address] [place] [address], [place] [id number] Mar, [facility] [address] [id number] [address] [place] [id number] Jun, [facility] [address] [facility] [id number] [address] [place] [id number] May, [facility] [address] [facility] [id number] [address] [place] [id number] May, IMMUNIZATIONS No Known Immunizations SOCIAL HISTORY [...]
--- OUTSIDE RECORDS SUMMARY | 2020-02-21 11:48 | XMS REPORT ---
Author Author Tarik Logan Doctor Organization [facility] Address Unknown Phone Unavailable Care Team Providers Care Analyst Name Role Phone Migration, Doctor Unavailable Unavailable PROBLEMS Type Condition ICD9-CM Code OVY48-LC Code Onset Dates Condition S tatus SNOMED Code Problem Major depression 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 Active 17640231 Problem Pressure injury of left buttock, stage 2 L89.322 Active 235530009 Problem Hearing loss of both ears H91.93 Acti ve 56467175 Problem Acquired hypothyroidism E03.9 Active 000022855 Problem Pure hypercholesterolemia E78.0 Acti ve 856612281 Problem Gastroesophageal reflux disease without esophagitis K21.9 Active [id number] ALLERGIES No Information ENCOUNTERS Encounter Location Date Diagnosis [facility] [place] [address] [facility] [id number] [address] [place] [phone] Oct, [facility] [place] [address] [facility] [id number] [address] [place] [phone] Oct, [facility] [place] [address] [facility] [id number] [address] [place] [phone] Oct, Morbid obesity E66.01 and Pr essure injury of left buttock, stage 2 L89.322 [facility] [place] [address] [facility] [id number] [address] [place] [phone] Oct, [facility] [place] [address] [id number] [address] [place] [phone] Oct, [facility] [place] [address] [facility] [id number] [address] [place] [phone] 08 Oct, 2018 [facility] [place] [address] [facility] [id number] [address] [place] [phone] 06 Oct, 2018 Pressure injury of other sit e, stage 2 L89.892 and Morbid obesity E66.01 [facility] [place] [id number] [place] [address] 25 Sep, 2018 Cellulitis of other specifie d site L03.818 and BMI 40.0-44.9, adult Z68.41 [place] [address] [address] 13 Sep, 2018 Scab R23.4 and BMI 40.0-44.9 , adult Z68.41 [place] [address] [address] Jun, Major depression in remissio n F32.5 [place] [address] [address] Apr, [place] [address] [address] Apr, Encounter for breast cancer screening other than mammogram Z12.39 ; Encounter for immunization Z23 and Colon cancer screening Z12.11 [place] [address] [address] Mar, Major depression in partial remission F32.4 and BMI 40.0-44.9, adult Z68.41 [place] [address] [place] [id number] [address] [place] [phone] Mar, [place] [address] [address] Mar, Acquired hypothyroidism E03. 9 [place] [address] [address] Mar, Pain in left knee M25.562 ; Other chronic pain G89.29 and Gastroesophageal reflux disease without esophagitis K21.9 [place] [address] [place] [id number] [address] [place] [phone] Jan, [place] [address] [address] Jan, Acquired hypothyroidism E03. 9 [place] [address] [facility] [id number] [address] [place] [phone] Jan, [place] [address] [facility] [id number] [address] [place] [address] Jan, Acquired hypothyroidism E03. 9 [place] [address] [facility] [id number] [address] [place] [phone] December, Major depressive disorder in full remission, unspecified whether recurrent F32.5 [facility] [place] [address] [facility] [id number] [address] [place] [phone] Nov, Acquired hypothyroidism E03. 9 [place] [address] [facility] [id number] [address] [place] [phone] Nov, Pure hypercholesterolemia E7 8.0 ; Peripheral edema R60.9 and Acquired hypothyroidism E03.9 [place] [address] [facility] [id number] [address] [place] [phone] Oct, Mild acid reflux K21.9 [place] [address] [facility] [id number] [address] [place] [phone] Sep, Major depressive disorder, s glenny episode, in partial remission F32.4 and Long-term use of high-risk medication Z79.899 [place] [address] [place] [id number] [address] [place] [phone] Aug, Encounter for immunization Z 23 [place] [address] [place] [id number] [address] [place] [address] Jul, [place] [address] [facility] [id number] [address] [place] [address] Jun, Medicare annual wellness vis it, initial Z00.00 ; BMI 40.0-44.9, adult Z68.41 and Encounter for immunization Z23 [facility] [place] [address] [facility] [id number] [address] [place] [phone] May, [place] [address] [facility] [id number] [address] [place] [phone] May, Encounter for immunization Z 23 [facility] [place] [address] [id number] [address] [place] [phone] 10 May, 2017 Major depression in partial remission F32.4 [facility] [place] [address] [facility] [id number] [address] [place] [phone] Apr, Hearing loss H91.90 ; Encoun ter for immunization Z23 and Encounter for screening mammogram for breast cancer Z12.31 [facility] [place] [address] [id number] [address] [place] [phone] Mar, Acquired hypothyroidism E03. 9 [facility] [place] [address] [facility] [id number] [address] [place] [phone] Jan, Acquired hypothyroidism E03. 9 [facility] [place] [address] [facility] [id number] [address] [place] [phone] Jan, Acute midline low back pain without sciatica M54.5 [place] [address] [facility] [id number] [address] [place] [phone] Jan, Peripheral edema R60.9 [facility] [place] [address] [facility] [id number] [address] [place] [phone] Jan, Major depression in partial remission F32.4 [facility] [place] [address] [facility] [id number] [address] [place] [phone] Jan, Localized edema R60.0 [facility] [place] [address] [facility] [id number] [address] [place] [phone] Nov, Pure hypercholesterolemia E7 8.0 [facility] [place] [address] [facility] [id number] [address] [place] [phone] Nov, Pure hypercholesterolemia E7 8.0 [facility] [place] [address] [facility] [id number] [address] [place] [phone] Nov, Peripheral edema R60.9 [facility] [place] [address] [facility] [id number] [address] [place] [phone] Oct, Major depression in partial remission F32.4 [place] [address] [id number] [address] [place] [phone] Aug, [facility] [place] [address] [id number] [address] [place] [phone] Aug, Elevated blood pressure read ing R03.0 [facility] [place] [address] [id number] [address] [place] [phone] Aug, [facility] [place] [address] [facility] [id number] [address] [place] [phone] Jun, Major depression in partial remission F32.4 [facility] [place] [address] [id number] [address] [place] [phone] Apr, Major depressive disorder, r ecurrent episode, mild F33.0 [place] [address] [facility] [id number] [address] [place] [phone] Mar, Encounter for well woman exa m with routine gynecological exam Z01.419 and Breast cancer screening Z12.39 [facility] [place] [address] [id number] [address] [place] [phone] Jan, Hypothyroidism, unspecified type E03.9 [place] [address] [id number] [address] [place] [phone] Jan, Major depressive disorder, r ecurrent episode, mild F33.0 [place] [address] [id number] [address] [place] [phone] 30 Jan, 2016 Abscess L02.91 [place] [address] [id number] [address] [place] [phone] Jan, Furuncle L02.92 [place] [address] [facility] [id number] [address] [place] [phone] 16 Jan, 2016 Major depression in partial remission F32.4 [facility] [place] [address] [id number] [address] [place] [phone] 13 Jan, 2016 Major depressive disorder, r ecurrent episode, mild F33.0 [facility] [address] [facility] [id number] [address] [place] [phone] December, Acute bacterial conjunctivit is of left eye H10.022 [place] [address] [place] [id number] [address] [place] [id number] December, Major depressive disorder, r ecurrent episode, mild F33.0 [place] [address] [place] [phone] Nov, [place] [address] [address] Nov, Major depressive disorder, r ecurrent episode, mild F33.0 [place] [address] [address] Nov, Hearing loss H91.90 [place] [address] [place] [id number] [address] [place] [phone] Oct, Major depression in partial remission F32.4 [place] [address] [place] [id number] [address] [place] [phone] Oct, Pneumonia J18.9 [facility] [address] [address] Oct, Influenza A J10.1 ; Fever, u nspecified R50.9 ; Conjunctivitis H10.9 and Cough R05 [place] [address] [place] [phone] Oct, Major depressive disorder, r ecurrent episode, severe, 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 [place] [address] [place] [phone] Aug, [place] [address] [place] [address] Aug, Acquired hypothyroidism E03. 9 and Pure hypercholesterolemia E78.0 [place] [address] [place] [id number] [address] [place] [phone] Aug, Major depressive disorder, r ecurrent episode, severe, 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 [facility] [place] [address] [facility] [id number] [address] [place] [phone] Jul, [facility] [place] [address] [facility] [id number] [address] [place] [id number] Jul, Major depressive disorder, r ecurrent episode, severe, 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 [facility] [place] [address] [facility] [id number] [address] [place] [phone] Jun, Major depressive disorder, r ecurrent episode, severe, 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 [facility] [place] [address] [facility] [id number] [address] [place] [phone] May, [facility] [place] [address] [facility] [id number] [address] [place] [phone] May, Major depressive disorder, r ecurrent episode, severe, 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 [facility] [place] [address] [facility] [id number] [address] [place] [phone] May, Major depressive disorder, r ecurrent episode, severe, 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 [facility] [place] [address] [facility] [id number] [address] [place] [phone] Apr, [facility] [place] [address] [place] [id number] [address] [place] [phone] Apr, Depressive disorder, not els ewhere classified 311 and Unspecified psychosis 298.9 [facility] [place] [address] [facility] [id number] [address] [place] [phone] Apr, Depression 311 and Hard of h earing 389.9 [facility] [place] [address] [facility] [id number] [address] [place] [phone] 10 Apr, 2015 Schizoaffective disorder 295 .70 [facility] [place] [address] [facility] [id number] [address] [place] [phone] 08 Apr, 2015 Major depressive disorder, r ecurrent episode, severe, specified as with psychotic behavior 296.34 [facility] [place] [address] [id number] [address] [place] [phone] Apr, Psychosis 298.9 and Depressi on 311 [facility] [place] [address] [id number] [address] [place] [phone] Apr, Depressive disorder, not els ewhere classified 311 and Unspecified psychosis 298.9 [facility] [place] [address] [facility] [id number] [address] [place] [phone] Mar, Screening for cervical cance r V76.2 ; Well woman exam with routine gynecological exam V72.31 ; Colon cancer screening V76.51 ; Breast cancer screening V76.10 ; Irritable bowel syndrome 564.1 and Psychosis 298.9 [facility] [place] [address] [facility] [id number] [address] [place] [phone] Mar, Psychosis 298.9 [facility] [place] [address] [facility] [id number] [address] [place] [phone] Mar, Unspecified psychosis 298.9 [facility] [place] [address] [facility] [id number] [address] [place] [phone] Nov, [facility] [place] [address] [facility] [id number] [address] [place] [phone] Nov, [facility] [place] [address] [facility] [id number] [address] [place] [phone] Oct, [facility] [place] [address] [facility] [id number] [address] [place] [phone] Oct, [facility] [place] [address] [facility] [id number] [address] [place] [phone] Jul, [facility] [place] [address] [facility] [id number] [address] [place] [phone] Jul, [facility] [place] [address] [facility] [id number] [address] [place] [phone] May, [facility] [place] [address] [facility] [id number] [address] [place] [phone] Apr, [facility] [address] [id number] [facility] [place] [address] Apr, [facility] [address] [id number] [facility] [place] [address] Apr, [facility] [address] [id number] [facility] [place] [address] Apr, [facility] [address] [id number] [address] [place] [address], [place] [address] Apr, [facility] [address] [id number] [facility] [place] [address] Mar, [facility] [address] [id number] [address] [place] [address], [place] [address] Mar, [facility] [address] [id number] [address] [place] [address], [place] [address] Mar, [facility] [address] [id number] [address] [place] [address], [place] [address] Mar, [facility] [address] [id number] [address] [place] [address], [place] [address] Mar, [facility] [address] [id number] [address] [place] [address], [place] [address] Mar, [facility] [address] [id number] [address] [place] [address], [place] [address] Mar, [facility] [address] [id number] [address] [place] [address], [place] [address] Mar, [facility] [address] [id number] [address] [place] [address], [place] [address] Mar, [facility] [address] [id number] [address] [place] [address], [place] [address] Mar, [facility] [address] [id number] [address] [place] [address], [place] [address] Jan, [facility] [address] [id number] [address] [place] [address], [place] [address] Jan, [facility] [address] [id number] [address] [place] [address], [place] [address] December, [facility] [address] [id number] [address] [place] [address], [place] [address] December, [facility] [address] [id number] [address] [place] [address], [place] [address] Nov, [facility] [address] [id number] [address] [place] [address], [place] [address] Nov, [facility] [address] [id number] [address] [place] [address], [place] [address] Sep, [facility] [address] [id number] [address] [place] [address], [place] [address] Sep, [facility] [address] [id number] [address] [place] [address], [place] [address] Sep, [facility] [address] [id number] [address] [place] [address], [place] [address] Sep, [facility] [address] [id number] [address] [place] [address], [place] [address] Jun, [facility] [address] [id number] [address] [place] [address], [place] [address] Jun, [facility] [address] [id number] [address] [place] [address], [place] [address] Jun, [facility] [address] [id number] [address] [place] [address], [place] [address] Jun, [facility] [address] [id number] [address] [place] [address], [place] [address] May, [facility] [address] [id number] [address] [place] [address], [place] [address] May, [facility] [address] [id number] [address] [place] [address], [place] [address] Apr, [facility] [address] [id number] [facility] [place] [address] Mar, [facility] [address] [id number] [address] [place] [address], [place] [address] Mar, [facility] [address] [id number] [address] [place] [address], [place] [address] Mar, [facility] [address] [id number] [address] [place] [address], [place] [address] Mar, [facility] [address] [id number] [address] [place] [address], [place] [address] Mar, [facility] [address] [id number] [address] [place] [address], [place] [address] Jan, [facility] [address] [id number] [address] [place] [address], [place] [address] Jan, [facility] [address] [id number] [address] [place] [address], [place] [address] Jan, [facility] [address] [id number] [address] [place] [address], [place] [address] December, [facility] [address] [id number] [address] [place] [address], [place] [address] Oct, [facility] [address] [id number] [address] [place] [address], [place] [address] Oct, [facility] [address] [id number] [address] [place] [address], [place] [address] Oct, [facility] [address] [id number] [address] [place] [address], [place] [address] Oct, [facility] [address] [id number] [address] [place] [address], [place] [address] Aug, [facility] [address] [id number] [address] [place] [address], [place] [address] Jun, [facility] [address] [id number] [address] [place] [address], [place] [address] Jun, [facility] [address] [id number] [address] [place] [address], [place] [address] Jun, [facility] [address] [id number] [address] [place] [address], [place] [address] Jun, [facility] [address] [id number] [address] [place] [address], [place] [address] May, [facility] [address] [id number] [address] [place] [address], [place] [address] Apr, [facility] [address] [id number] [address] [place] [address], [place] [address] Mar, [facility] [address] [id number] [address] [place] [address], [place] [address] Jan, [facility] [address] [id number] [address] [place] [address], [place] [address] Jan, [facility] [address] [id number] [address] [place] [address], [place] [address] December, [facility] [address] [id number] [address] [place] [address], [place] [address] December, [facility] [address] [id number] [address] [place] [address], [place] [address] December, [facility] [address] [id number] [address] [place] [address], [place] [address] December, [facility] [address] [id number] [address] [place] [address], [place] [address] Nov, [facility] [address] [id number] [address] [place] [address], [place] [id number] Oct, [facility] [address] [id number] [address] [place] [address], [place] [id number] Sep, [facility] [address] [id number] [address] [place] [address], [place] [id number] Sep, [facility] [address] [id number] [address] [place] [id number] Sep, [facility] [place] [address] [id number] [address] [place] [id number] Sep, [facility] [place] [address] [id number] [address] [place] [phone] Aug, [facility] [place], [facility] [address] [facility] [id number] [address] [place] [phone] Jun, [facility] [place], [facility] [address] [facility] [id number] [address] [place] [phone] May, [facility] [place], [facility] [address] [facility] [id number] [address] [place] [id number] Mar, [facility] [place], [facility] [address] [facility] [id number] [address] [place] [phone] Jun, [facility] [place] [address] [facility] [id number] [address] [place] [phone] May, [facility] [place], [facility] [address] [facility] [id number] [address] [place] [phone] May, IMMUNIZATIONS No Known Immunizations SOCIAL HISTORY Never Assessed REASON FOR VISIT EMR-[facility] [place]AN OF CARE VITAL SIGNS MEDICATIONS Unknown [...]
--- OUTSIDE RECORDS SUMMARY | 2020-02-21 11:48 | XMS REPORT ---
Author Author Tarik POTTS Organization [facility] Address [address] [place] [address] Care Team Providers Care Talent Development Director Name Role Phone ROMA POTTS Unavailable PROBLEMS Type Condition ICD9-CM Code DHE97-LU Code Onset Dates Condition S tatus SNOMED Code Problem Depression, major, 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 Active 11173252 Problem Pressure injury of left buttock, stage 2 L89.322 Active 749115189 Problem Hearing loss of both ears H91.93 Acti ve 96856933 Problem Acquired hypothyroidism E03.9 Active 673420822 Problem Pure hypercholesterolemia E78.0 Acti ve 377441626 Problem Gastroesophageal reflux disease without esophagitis K21.9 Active [id number] ALLERGIES Substance Reaction Event Type Date Status Penicillins Unknown Non Drug Allergy Oct, Active ENCOUNTERS Encounter Location Date Diagnosis [place] [address] [place] [place] [id number] [address] [place] [phone] Jan, [facility] [address] [facility] [id number] [address] [place] [phone] Jan, [place] [address] [facility] [id number] [address] [place] [phone] December, [facility] [address] [id number] [address] [place] [phone] December, Wound of left lower extremit y, subsequent encounter S81.802D [facility] [address] [facility] [id number] [address] [place] [phone] Nov, [facility] [address] [facility] [id number] [address] [place] [phone] Nov, Blister of left lower extrem ity without infection, initial encounter S80.822A and Morbid obesity E66.01 [facility] [address] [id number] [address] [place] [address] Nov, [facility] [address] [id number] [address] [place] [phone] Nov, [facility] [address] [id number] [address] [place] [phone] Nov, [facility] [address] [id number] [address] [place] [phone] Nov, [facility] [address] [id number] [address] [place] [phone] Nov, [facility] [address] [id number] [address] [place] [phone] Nov, [facility] [address] [id number] [address] [place] [phone] Oct, [facility] [address] [id number] [address] [place] [phone] Oct, Depression, major, in remiss ion F32.5 [facility] [address] [id number] [address] [place] [phone] Oct, [facility] [address] [id number] [address] [place] [phone] Oct, [facility] [address] [id number] [address] [place] [phone] Oct, [facility] [address] [id number] [address] [place] [phone] Oct, Morbid obesity E66.01 and Pr essure injury of left buttock, stage 2 L89.322 [facility] [address] [id number] [address] [place] [id number] 13 Oct, 2018 [facility] [address] [id number] [address] [place] [phone] Oct, [facility] [address] [id number] [address] [place] [phone] Oct, [facility] [address] [facility] [id number] [address] [place] [phone] Oct, Pressure injury of other sit e, stage 2 L89.892 and Morbid obesity E66.01 [facility] [address] [facility] [id number] [address] [place] [id number] Sep, Cellulitis of other specifie d site L03.818 and BMI 40.0-44.9, adult Z68.41 [place] [address] [facility] [id number] [address] [place] [id number] 13 Sep, 2018 Scab R23.4 and BMI 40.0-44.9 , adult Z68.41 [place] [address] [facility] [id number] [address] [place] [id number] Jun, Major depression in remissio n F32.5 [place] [address] [facility] [id number] [address] [place] [phone] 27 Apr, 2018 [place] [address] [facility] [id number] [address] [place] [phone] 24 Apr, 2018 Encounter for breast cancer screening other than mammogram Z12.39 ; Encounter for immunization Z23 and Colon cancer screening Z12.11 [place] [address] [facility] [id number] [address] [place] [phone] Mar, Major depression in partial remission F32.4 and BMI 40.0-44.9, adult Z68.41 [place] [address] [facility] [id number] [address] [place] [phone] Mar, [place] [address] [facility] [id number] [address] [place] [phone] Mar, Acquired hypothyroidism E03. 9 [place] [address] [facility] [id number] [address] [place] [phone] Mar, Pain in left knee M25.562 ; Other chronic pain G89.29 and Gastroesophageal reflux disease without esophagitis K21.9 [facility] [address] [facility] [id number] [address] [place] [phone] Jan, [facility] [address] [facility] [id number] [address] [place] [phone] Jan, Acquired hypothyroidism E03. 9 [facility] [address] [facility] [id number] [address] [place] [phone] Jan, [facility] [address] [facility] [id number] [address] [place] [phone] Jan, Acquired hypothyroidism E03. 9 [facility] [address] [facility] [id number] [address] [place] [phone] December, Major depressive disorder in full remission, unspecified whether recurrent F32.5 [facility] [address] [facility] [id number] [address] [place] [phone] Nov, Acquired hypothyroidism E03. 9 [facility] [address] [place] [id number] [address] [place] [phone] Nov, Pure hypercholesterolemia E7 8.0 ; Peripheral edema R60.9 and Acquired hypothyroidism E03.9 [facility] [address] [facility] [id number] [address] [place] [phone] Oct, Mild acid reflux K21.9 [facility] [address] [facility] [id number] [address] [place] [phone] Sep, Major depressive disorder, s glenny episode, in partial remission F32.4 and Long-term use of high-risk medication Z79.899 [facility] [address] [facility] [id number] [address] [place] [id number] Aug, Encounter for immunization Z 23 [place] [address] [facility] [id number] [address] [place] [phone] Jul, [facility] [address] [facility] [id number] [address] [place] [phone] Jun, Medicare annual wellness vis it, initial Z00.00 ; BMI 40.0-44.9, adult Z68.41 and Encounter for immunization Z23 [facility] [address] [id number] [address] [place] [phone] 10 May, 2017 [facility] [address] [facility] [id number] [address] [place] [phone] May, Encounter for immunization Z 23 [facility] [address] [id number] [address] [place] [phone] May, Major depression in partial remission F32.4 [place] [address] [id number] [address] [place] [phone] Apr, Hearing loss H91.90 ; Encoun ter for immunization Z23 and Encounter for screening mammogram for breast cancer Z12.31 [place] [address] [facility] [id number] [address] [place] [phone] Mar, Acquired hypothyroidism E03. 9 [place] [address] [facility] [id number] [address] [place] [phone] Jan, Acquired hypothyroidism E03. 9 [place] [address] [facility] [id number] [address] [place] [phone] Jan, Acute midline low back pain without sciatica M54.5 [place] [address] [facility] [id number] [address] [place] [phone] Jan, Peripheral edema R60.9 [place] [address] [facility] [id number] [address] [place] [phone] Jan, Major depression in partial remission F32.4 [facility] [address] [id number] [address] [place] [phone] Jan, Localized edema R60.0 [place] [address] [facility] [id number] [address] [place] [phone] Nov, Pure hypercholesterolemia E7 8.0 [place] [address] [facility] [id number] [address] [place] [phone] Nov, Pure hypercholesterolemia E7 8.0 [place] [address] [id number] [address] [place] [phone] Nov, Peripheral edema R60.9 [facility] [address] [id number] [address] [place] [phone] Oct, Major depression in partial remission F32.4 [facility] [address] [id number] [address] [place] [phone] Aug, [facility] [address] [id number] [address] [place] [phone] Aug, Elevated blood pressure read ing R03.0 [facility] [address] [id number] [address] [place] [phone] Aug, [facility] [address] [facility] [id number] [address] [place] [phone] Jun, Major depression in partial remission F32.4 [facility] [address] [id number] [address] [place] [phone] Apr, Major depressive disorder, r ecurrent episode, mild F33.0 [place] [address] [facility] [id number] [address] [place] [phone] Mar, Encounter for well woman reta m with routine gynecological exam Z01.419 and Breast cancer screening Z12.39 [facility] [address] [id number] [address] [place] [id number] Jan, Hypothyroidism, unspecified type E03.9 [facility] [address] [id number] [address] [place] [phone] Jan, Major depressive disorder, r ecurrent episode, mild F33.0 [facility] [address] [facility] [id number] [address] [place] [phone] Jan, Abscess L02.91 [facility] [address] [facility] [id number] [address] [place] [phone] Jan, Furuncle L02.92 [facility] [address] [facility] [id number] [address] [place] [phone] 16 Jan, 2016 Major depression in partial remission F32.4 [facility] [address] [id number] [address] [place] [phone] 13 Jan, 2016 Major depressive disorder, r ecurrent episode, mild F33.0 [facility] [address] [facility] [id number] [address] [place] [phone] 17 Dec, 2015 Acute bacterial conjunctivit is of left eye H10.022 [place] [address] [facility] [id number] [address] [place] [phone] 17 Dec, 2015 Major depressive disorder, r ecurrent episode, mild F33.0 [place] [address] [facility] [id number] [address] [place] [phone] Nov, [place] [address] [place] [id number] [address] [place] [phone] Nov, Major depressive disorder, r ecurrent episode, mild F33.0 [place] [address] [facility] [id number] [address] [place] [phone] 18 Nov, 2015 Hearing loss H91.90 [place] [address] [facility] [id number] [address] [place] [phone] 17 Oct, 2015 Major depression in partial remission F32.4 [place] [address] [place] [id number] [address] [place] [id number] 15 Oct, 2015 Pneumonia J18.9 [facility] [address] [facility] [id number] [address] [place] [phone] 10 Oct, 2015 Influenza A J10.1 ; Fever, u nspecified R50.9 ; Conjunctivitis H10.9 and Cough R05 [place] [address] [facility] [id number] [address] [place] [id number] 10 Oct, 2015 Major depressive disorder, r ecurrent episode, severe, 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 [place] [address] [facility] [id number] [address] [place] [phone] Aug, [facility] [address] [facility] [id number] [address] [place] [id number] Aug, Acquired hypothyroidism E03. 9 and Pure hypercholesterolemia E78.0 [facility] [address] [facility] [id number] [address] [place] [phone] Aug, Major depressive disorder, r ecurrent episode, severe, 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 [facility] [address] [facility] [id number] [address] [place] [id number] Jul, [facility] [address] [facility] [id number] [address] [place] [phone] Jul, Major depressive disorder, r ecurrent episode, severe, 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 [facility] [address] [facility] [id number] [address] [place] [id number] Jun, Major depressive disorder, r ecurrent episode, severe, 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 [facility] [address] [facility] [id number] [address] [place] [phone] May, [facility] [address] [facility] [id number] [address] [place] [phone] May, Major depressive disorder, r ecurrent episode, severe, 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 [facility] [address] [place] [id number] [address] [place] [phone] May, Major depressive disorder, r ecurrent episode, severe, 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 [facility] [address] [facility] [id number] [address] [place] [phone] Apr, [facility] [address] [facility] [id number] [address] [place] [phone] Apr, Depressive disorder, not els ewhere classified 311 and Unspecified psychosis 298.9 [facility] [address] [facility] [id number] [address] [place] [phone] Apr, Depression 311 and Hard of h earing 389.9 [facility] [address] [facility] [id number] [address] [place] [phone] 10 Apr, 2015 Schizoaffective disorder 295 .70 [facility] [address] [facility] [id number] [address] [place] [phone] 08 Apr, 2015 Major depressive disorder, r ecurrent episode, severe, specified as with psychotic behavior 296.34 [facility] [address] [facility] [id number] [address] [place] [phone] Apr, Psychosis 298.9 and Depressi on 311 [facility] [address] [facility] [id number] [address] [place] [phone] Apr, Depressive disorder, not els ewhere classified 311 and Unspecified psychosis 298.9 [facility] [address] [facility] [id number] [address] [place] [phone] Mar, Screening for cervical cance r V76.2 ; Well woman exam with routine gynecological exam V72.31 ; Colon cancer screening V76.51 ; Breast cancer screening V76.10 ; Irritable bowel syndrome 564.1 and Psychosis 298.9 [facility] [address] [facility] [id number] [address] [place] [phone] Mar, Psychosis 298.9 [facility] [address] [facility] [id number] [address] [place] [phone] Mar, Unspecified psychosis 298.9 [facility] [address] [facility] [id number] [address] [place] [phone] Nov, [facility] [address] [facility] [id number] [address] [place] [phone] Nov, [facility] [address] [facility] [id number] [address] [place] [phone] Oct, [facility] [address] [facility] [id number] [address] [place] [phone] Oct, [facility] [address] [facility] [id number] [address] [place] [phone] Jul, [facility] [address] [facility] [id number] [address] [place] [id number] Jul, [facility] [address] [id number] [address] [place] [address], [place] [address] May, [facility] [address] [id number] [address] [place] [address], [place] [address] Apr, [facility] [address] [id number] [address] [place] [address], [place] [address] Apr, [facility] [address] [id number] [address] [place] [address], [place] [address] Apr, [facility] [address] [id number] [address] [place] [address], [place] [address] Apr, [facility] [address] [id number] [address] [place] [address], [place] [address] Apr, [facility] [address] [id number] [address] [place] [address], [place] [address] Mar, [facility] [address] [id number] [address] [place] [address], [place] [address] Mar, [facility] [address] [id number] [address] [place] [address], [place] [address] Mar, [facility] [address] [id number] [address] [place] [address], [place] [address] Mar, [facility] [address] [id number] [address] [place] [address], [place] [address] Mar, [facility] [address] [id number] [address] [place] [address], [place] [address] Mar, [facility] [address] [id number] [address] [place] [address], [place] [address] Mar, [facility] [address] [id number] [address] [place] [address], [place] [address] Mar, [facility] [address] [id number] [address] [place] [address], [place] [address] Mar, [facility] [address] [id number] [address] [place] [address], [place] [address] Mar, [facility] [address] [id number] [address] [place] [address], [place] [address] Jan, [facility] [address] [id number] [address] [place] [address], [place] [address] Jan, [facility] [address] [id number] [address] [place] [address], [place] [address] December, [facility] [address] [id number] [address] [place] [address], [place] [address] December, [facility] [address] [id number] [address] [place] [address], [place] [address] Nov, [facility] [address] [id number] [address] [place] [address], [place] [address] Nov, [facility] [address] [id number] [address] [place] [address], [place] [address] Sep, [facility] [address] [id number] [address] [place] [address], [place] [address] Sep, [facility] [address] [id number] [address] [place] [address], [place] [address] Sep, [facility] [address] [id number] [address] [place] [address], [place] [address] Sep, [facility] [address] [id number] [address] [place] [address], [place] [address] Jun, [facility] [address] [id number] [address] [place] [address], [place] [address] Jun, [facility] [address] [id number] [address] [place] [address], [place] [address] Jun, [facility] [address] [id number] [address] [place] [address], [place] [address] Jun, [facility] [address] [id number] [address] [place] [address], [place] [address] 16 May, 2013 [facility] [address] [id number] [address] [place] [address], [place] [address] May, [facility] [address] [id number] [address] [place] [address], [place] [address] Apr, [facility] [address] [id number] [address] [place] [address], [place] [address] Mar, [facility] [address] [id number] [address] [place] [address], [place] [address] Mar, [facility] [address] [id number] [address] [place] [address], [place] [address] Mar, [facility] [address] [id number] [address] [place] [address], [place] [address] Mar, [facility] [address] [id number] [address] [place] [address], [place] [address] Mar, [facility] [address] [id number] [address] [place] [address], [place] [address] Jan, [facility] [address] [id number] [address] [place] [address], [place] [address] Jan, [facility] [address] [id number] [address] [place] [address], [place] [address] Jan, [facility] [address] [id number] [address] [place] [address], [place] [address] December, [facility] [address] [id number] [address] [place] [address], [place] [address] Oct, [facility] [address] [id number] [address] [place] [address], [place] [address] Oct, [facility] [address] [id number] [address] [place] [address], [place] [address] Oct, [facility] [address] [id number] [address] [place] [address], [place] [address] Oct, [facility] [address] [id number] [address] [place] [address], [place] [address] Aug, [facility] [address] [id number] [address] [place] [address], [place] [address] Jun, [facility] [address] [id number] [address] [place] [address], [place] [address] 16 Jun, 2012 [facility] [address] [id number] [address] [place] [address], [place] [address] Jun, [facility] [address] [id number] [address] [place] [address], [place] [address] Jun, [facility] [address] [id number] [address] [place] [address], [place] [address] May, [facility] [address] [id number] [address] [place] [address], [place] [address] Apr, [facility] [address] [id number] [address] [place] [address], [place] [address] Mar, [facility] [address] [id number] [address] [place] [address], [place] [address] Jan, [facility] [address] [id number] [address] [place] [address], [place] [address] Jan, [facility] [address] [id number] [address] [place] [address], [place] [address] December, [facility] [address] [id number] [address] [place] [address], [place] [address] December, [facility] [address] [id number] [address] [place] [address], [place] [address] December, [facility] [address] [id number] [address] [place] [address], [place] [address] December, [facility] [address] [id number] [address] [place] [address], [place] [address] Nov, [facility] [address] [id number] [address] [place] [address], [place] [address] Oct, [facility] [address] [id number] [address] [place] [phone] Sep, [facility] [address] [id number] [address] [place] [id number] Sep, [facility] [address] [id number] [address] [place] [phone] Sep, [facility] [address] [id number] [address] [place] [phone] Sep, [facility] [address] [id number] [address] [place] [phone] Aug, [facility] [address] [id number] [address] [place] [phone] Jun, [facility] [address] [id number] [address] [place] [phone] May, [facility] [address] [id number] [address] [place] [phone] Mar, [facility] [address] [id number] [address] [place] [phone] Jun, [facility] [address] [id number] [address] [place] [phone] May, [facility] [address] [id number] [address] [place] [phone] May, IMMUNIZATIONS No Known Immunizations SOCIAL HISTORY Never Assessed REASON FOR VISIT leg pain Pt c/o place on back of leg that hurts, states it dale when she sits d own ARIE Cr PLAN OF CARE Activity Details Follow Up 2 - 3 Days Reason:dressing c hange VITAL SIGNS Height 65 in 2018-10-06 Weight 244.2 lbs 2018-10-06 Temperature 97.8 degrees Fahrenheit 2018-10-06 Heart Rate 72 bpm 2018-10-06 Respiratory Rate 16 2018-10-06 BMI 40.63 kg/m2 2018-10-06 Blood pressure systolic 138 mmHg 2018-10-06 Blood pressure diastolic 98 mmHg 2018-10-06 MEDICATIONS Medication Instructions Dosage Frequency Start Date End Date Duration S kamniius Trazodone HCl 50 MG TAKE ONE TABLET BY MOUTH ONC E DAILY AT BEDTIME FOR SLEEP 30 Active Lovastatin 20 MG TAKE ONE TABLET BY MOUTH ONCE DAILY 90 Active Levothyroxine Sodium 112 MCG Orally Once a day 1 tablet on an empty stomach in the morning 24h Jan, 90 Active Mupirocin 2 % Externally Once a day 4 grm to affected area 24h 2 5 Sep, 2018 7 days Active Bentyl 10 MG Orally Four times a day befo re meals and at bedtime for urgency with bowel movements 1 capsule 30 Acti ve Lasix 40 mg Orally twice a day in AM and noon 1 tablet Jan, 017 5 days Active Dicyclomine HCl 20 MG TAKE ONE-HALF TABL ET BY MOUTH FOUR (4) TIMES DAILY BEFORE MEALS AND AT BEDTIME FOR URGENCY WITH BOWEL MOVEMENTS 30 Active Omeprazole 20 mg Orally Once a day 1 capsule 24h 90 Active Aripiprazole 5 MG Orally at bedtime 1 tablet Active Fluoxetine HCl 10 MG TAKE THREE CAPSULES BY MOUTH ONCE DAILY IN THE MORNING 30 Active RESULTS No Results PROCEDURES Procedure Date Ordered Result Body Site [facility] VISIT ESTABLISHED PATIENT October 06, 2018 INSTRUCTIONS MEDICATIONS ADMINISTERED No Known Medications MEDICAL (GENERAL) HISTORY Type Description Date Medical History depression Medical History hypothryroidism Medical History hyperlipidemia Medical History trauma: Stroke - with L side faci al drooping Surgical History hysterectomy Surgical History cholecystectomy Surgical History gall bladder removal Hospitalization History surgeries Hospitalization History stroke
--- OUTSIDE RECORDS SUMMARY | 2020-02-21 11:48 | XMS REPORT ---
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 Active 28553548 Problem Pressure injury of left buttock, stage 2 L89.322 Active 950578469 Problem Hearing loss of both ears H91.93 Acti ve 88486212 Problem Acquired hypothyroidism E03.9 Active 327648170 Problem Pure hypercholesterolemia E78.0 Acti ve 811395830 Problem Gastroesophageal reflux disease without esophagitis K21.9 Active [id number] ALLERGIES No Information ENCOUNTERS Encounter Location Date Diagnosis [place] [address] [facility] [id number] [address] [place] [phone] Jan, [place] [address] [facility] [id number] [address] [place] [address] December, [place] [address] [facility] [id number] [address] [place] [address] December, Wound of left lower extremit y, subsequent encounter S81.802D [facility] [address] [facility] [id number] [address] [place] [address] Nov, [place] [address] [facility] [id number] [address] [place] [address] Nov, Blister of left lower extrem ity without infection, initial encounter S80.822A and Morbid obesity E66.01 [facility] [address] [facility] [id number] [address] [place] [phone] Nov, [place] [address] [id number] [address] [place] [phone] 15 Nov, 2018 [facility] [address] [id number] [address] [place] [address] Nov, [facility] [address] [id number] [address] [place] [phone] Nov, [facility] [address] [id number] [address] [place] [phone] Nov, [facility] [address] [id number] [address] [place] [phone] Nov, [facility] [address] [id number] [address] [place] [phone] Oct, [facility] [address] [id number] [address] [place] [phone] Oct, Depression, major, in remiss ion F32.5 [facility] [address] [id number] [address] [place] [phone] Oct, [facility] [address] [id number] [address] [place] [phone] Oct, [facility] [address] [id number] [address] [place] [phone] Oct, [facility] [address] [id number] [address] [place] [address] Oct, Morbid obesity E66.01 and Pr essure injury of left buttock, stage 2 L89.322 [facility] [address] [id number] [address] [place] [phone] Oct, [facility] [address] [id number] [address] [place] [phone] Oct, [facility] [address] [id number] [address] [place] [phone] Oct, [facility] [address] [id number] [address] [place] [phone] Oct, Pressure injury of other sit e, stage 2 L89.892 and Morbid obesity E66.01 [facility] [address] [facility] [id number] [address] [place] [id number] Sep, Cellulitis of other specifie d site L03.818 and BMI 40.0-44.9, adult Z68.41 [facility] [address] [facility] [id number] [address] [place] [phone] 13 Sep, 2018 Scab R23.4 and BMI 40.0-44.9 , adult Z68.41 [place] [address] [facility] [id number] [address] [place] [address] Jun, Major depression in remissio n F32.5 [place] [address] [facility] [id number] [address] [place] [address] Apr, [place] [address] [place] [id number] [address] [place] [address] Apr, Encounter for breast cancer screening other than mammogram Z12.39 ; Encounter for immunization Z23 and Colon cancer screening Z12.11 [place] [address] [facility] [id number] [address] [place] [address] Mar, Major depression in partial remission F32.4 and BMI 40.0-44.9, adult Z68.41 [place] [address] [facility] [id number] [address] [place] [phone] Mar, [place] [address] [facility] [id number] [address] [place] [address] Mar, Acquired hypothyroidism E03. 9 [place] [address] [facility] [id number] [address] [place] [id number] Mar, Pain in left knee M25.562 ; Other chronic pain G89.29 and Gastroesophageal reflux disease without esophagitis K21.9 [facility] [address] [facility] [id number] [address] [place] [phone] Jan, [place] [address] [place] [id number] [address] [place] [phone] Jan, Acquired hypothyroidism E03. 9 [facility] [address] [facility] [id number] [address] [place] [phone] Jan, [facility] [address] [facility] [id number] [address] [place] [phone] Jan, Acquired hypothyroidism E03. 9 [facility] [address] [place] [id number] [place] [address] December, Major depressive disorder in full remission, unspecified whether recurrent F32.5 [facility] [address] [facility] [id number] [address] [place] [address] Nov, Acquired hypothyroidism E03. 9 [facility] [address] [place] [id number] [place] [address] Nov, Pure hypercholesterolemia E7 8.0 ; Peripheral edema R60.9 and Acquired hypothyroidism E03.9 [place] [address] [place] [id number] [address] [place] [phone] Oct, Mild acid reflux K21.9 [place] [address] [place] [id number] [place] [phone] Sep, Major depressive disorder, s glenny episode, in partial remission F32.4 and Long-term use of high-risk medication Z79.899 [place] [address] [place] [id number] [address] [place] [phone] Aug, Encounter for immunization Z 23 [place] [place] [id number] [address] [place] [id number] Jul, [place] [address] [place] [id number] [place] [address] Jun, Medicare annual wellness vis it, initial Z00.00 ; BMI 40.0-44.9, adult Z68.41 and Encounter for immunization Z23 [place] [address] [place] [id number] [address] [place] [phone] May, [facility] [address] [facility] [id number] [address] [place] [phone] May, Encounter for immunization Z 23 [facility] [address] [facility] [id number] [address] [place] [id number] 10 May, 2017 Major depression in partial remission F32.4 [facility] [address] [facility] [id number] [address] [place] [phone] 11 Apr, 2017 Hearing loss H91.90 ; Encoun ter for immunization Z23 and Encounter for screening mammogram for breast cancer Z12.31 [facility] [address] [facility] [id number] [address] [place] [id number] Mar, Acquired hypothyroidism E03. 9 [facility] [address] [facility] [id number] [address] [place] [phone] Jan, Acquired hypothyroidism E03. 9 [place] [address] [facility] [id number] [address] [place] [phone] Jan, Acute midline low back pain without sciatica M54.5 [facility] [address] [facility] [id number] [address] [place] [address] Jan, Peripheral edema R60.9 [place] [address] [facility] [id number] [address] [place] [phone] Jan, Major depression in partial remission F32.4 [place] [address] [facility] [id number] [address] [place] [phone] Jan, Localized edema R60.0 [facility] [address] [facility] [id number] [address] [place] [phone] Nov, Pure hypercholesterolemia E7 8.0 [facility] [address] [facility] [id number] [address] [place] [phone] Nov, Pure hypercholesterolemia E7 8.0 [facility] [address] [facility] [id number] [address] [place] [phone] Nov, Peripheral edema R60.9 [facility] [address] [id number] [address] [place] [phone] Oct, Major depression in partial remission F32.4 [facility] [address] [id number] [address] [place] [phone] Aug, [facility] [address] [facility] [id number] [address] [place] [phone] Aug, Elevated blood pressure read ing R03.0 [facility] [address] [id number] [address] [place] [phone] Aug, [facility] [address] [facility] [id number] [address] [place] [phone] Jun, Major depression in partial remission F32.4 [facility] [address] [facility] [id number] [address] [place] [phone] Apr, Major depressive disorder, r ecurrent episode, mild F33.0 [place] [address] [facility] [id number] [address] [place] [phone] Mar, Encounter for well woman reta m with routine gynecological exam Z01.419 and Breast cancer screening Z12.39 [place] [address] [facility] [id number] [address] [place] [phone] Jan, Hypothyroidism, unspecified type E03.9 [place] [address] [facility] [id number] [address] [place] [phone] Jan, Major depressive disorder, r ecurrent episode, mild F33.0 [facility] [address] [facility] [id number] [address] [place] [id number] Jan, Abscess L02.91 [place] [address] [facility] [id number] [address] [place] [phone] Jan, Furuncle L02.92 [place] [address] [facility] [id number] [address] [place] [phone] Jan, Major depression in partial remission F32.4 [facility] [address] [facility] [id number] [address] [place] [phone] 13 Jan, 2016 Major depressive disorder, r ecurrent episode, mild F33.0 [facility] [address] [facility] [id number] [address] [place] [phone] December, Acute bacterial conjunctivit is of left eye H10.022 [facility] [address] [facility] [id number] [address] [place] [phone] December, Major depressive disorder, r ecurrent episode, mild F33.0 [facility] [address] [facility] [id number] [address] [place] [phone] Nov, [facility] [address] [facility] [id number] [place] [phone] Nov, Major depressive disorder, r ecurrent episode, mild F33.0 [facility] [address] [place] [id number] [address] [place] [phone] Nov, Hearing loss H91.90 [facility] [address] [facility] [id number] [address] [place] [id number] 17 Oct, 2015 Major depression in partial remission F32.4 [facility] [address] [facility] [id number] [address] [place] [phone] 15 Oct, 2015 Pneumonia J18.9 [facility] [address] [facility] [id number] [address] [place] [phone] 10 Oct, 2015 Influenza A J10.1 ; Fever, u nspecified R50.9 ; Conjunctivitis H10.9 and Cough R05 [facility] [address] [facility] [id number] [address] [place] [id number] 10 Oct, 2015 Major depressive disorder, r ecurrent episode, severe, 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 [facility] [address] [facility] [id number] [address] [place] [phone] Aug, [facility] [address] [facility] [id number] [address] [place] [phone] Aug, Acquired hypothyroidism E03. 9 and Pure hypercholesterolemia E78.0 [facility] [address] [facility] [id number] [address] [place] [id number] Aug, Major depressive disorder, r ecurrent episode, severe, 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 [facility] [address] [facility] [id number] [address] [place] [id number] Jul, [facility] [address] [facility] [id number] [address] [place] [phone] Jul, Major depressive disorder, r ecurrent episode, severe, 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 [facility] [address] [facility] [id number] [address] [place] [phone] Jun, Major depressive disorder, r ecurrent episode, severe, 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 [facility] [address] [facility] [id number] [address] [place] [phone] May, [facility] [address] [facility] [id number] [address] [place] [phone] May, Major depressive disorder, r ecurrent episode, severe, 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 [facility] [address] [facility] [id number] [address] [place] [phone] May, Major depressive disorder, r ecurrent episode, severe, 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 [facility] [address] [facility] [id number] [address] [place] [phone] Apr, [facility] [address] [facility] [id number] [address] [place] [phone] Apr, Depressive disorder, not els ewhere classified 311 and Unspecified psychosis 298.9 [facility] [address] [facility] [id number] [address] [place] [phone] Apr, Depression 311 and Hard of h earing 389.9 [facility] [address] [facility] [id number] [address] [place] [phone] 10 Apr, 2015 Schizoaffective disorder 295 .70 [facility] [address] [facility] [id number] [address] [place] [id number] Apr, Major depressive disorder, r ecurrent episode, severe, specified as with psychotic behavior 296.34 [facility] [address] [facility] [id number] [address] [place] [phone] Apr, Psychosis 298.9 and Depressi on 311 [facility] [address] [facility] [id number] [address] [place] [phone] Apr, Depressive disorder, not els ewhere classified 311 and Unspecified psychosis 298.9 [facility] [address] [facility] [id number] [address] [place] [address] Mar, Screening for cervical cance r V76.2 ; Well woman exam with routine gynecological exam V72.31 ; Colon cancer screening V76.51 ; Breast cancer screening V76.10 ; Irritable bowel syndrome 564.1 and Psychosis 298.9 [facility] [address] [facility] [id number] [address] [place] [address] Mar, Psychosis 298.9 [facility] [address] [facility] [id number] [address] [place] [id number] Mar, Unspecified psychosis 298.9 [facility] [address] [facility] [id number] [address] [place] [phone] Nov, [facility] [address] [facility] [id number] [address] [place] [phone] Nov, [facility] [address] [facility] [id number] [address] [place] [phone] Oct, [facility] [address] [facility] [id number] [address] [place] [phone] Oct, [facility] [address] [facility] [id number] [address] [place] [phone] Jul, [facility] [address] [facility] [id number] [address] [place] [phone] Jul, [facility] [address] [facility] [id number] [address] [place] [phone] May, [facility] [address] [id number] [facility] [place] [address] Apr, [facility] [address] [id number] [facility] [place] [address] Apr, [facility] [address] [id number] [facility] [place] [address] Apr, [facility] [address] [id number] [address] [place] [address], [place] [address] Apr, [facility] [address] [id number] [facility] [place] [address] Apr, [facility] [address] [id number] [address] [place] [address], [place] [address] Mar, [facility] [address] [id number] [address] [place] [address], [place] [address] Mar, [facility] [address] [id number] [address] [place] [address], [place] [address] Mar, [facility] [address] [id number] [address] [place] [address], [place] [address] Mar, [facility] [address] [id number] [address] [place] [address], [place] [address] Mar, [facility] [address] [id number] [address] [place] [address], [place] [address] Mar, [facility] [address] [id number] [address] [place] [address], [place] [address] Mar, [facility] [address] [id number] [address] [place] [address], [place] [address] Mar, [facility] [address] [id number] [address] [place] [address], [place] [address] Mar, [facility] [address] [id number] [address] [place] [address], [place] [address] Mar, [facility] [address] [id number] [address] [place] [address], [place] [address] 14 Jan, 2014 [facility] [address] [id number] [address] [place] [address], [place] [address] 14 Jan, 2014 [facility] [address] [id number] [address] [place] [address], [place] [address] December, [facility] [address] [id number] [address] [place] [address], [place] [address] December, [facility] [address] [id number] [address] [place] [address], [place] [address] Nov, [facility] [address] [id number] [address] [place] [address], [place] [address] Nov, [facility] [address] [id number] [address] [place] [address], [place] [address] Sep, [facility] [address] [id number] [address] [place] [address], [place] [address] Sep, [facility] [address] [id number] [address] [place] [address], [place] [address] Sep, [facility] [address] [id number] [address] [place] [address], [place] [address] Sep, [facility] [address] [id number] [address] [place] [address], [place] [address] Jun, [facility] [address] [id number] [address] [place] [address], [place] [address] Jun, [facility] [address] [id number] [address] [place] [address], [place] [address] Jun, [facility] [address] [id number] [address] [place] [address], [place] [address] Jun, [facility] [address] [id number] [address] [place] [address], [place] [address] 16 May, 2013 [facility] [address] [id number] [address] [place] [address], [place] [address] 16 May, 2013 [facility] [address] [id number] [facility] [place] [address] Apr, [facility] [address] [id number] [facility] [place] [address] Mar, [facility] [address] [id number] [facility] [place] [address] Mar, [facility] [address] [id number] [address] [place] [address], [place] [address] Mar, [facility] [address] [id number] [address] [place] [address], [place] [address] Mar, [facility] [address] [id number] [address] [place] [address], [place] [address] Mar, [facility] [address] [id number] [address] [place] [address], [place] [address] Jan, [facility] [address] [id number] [address] [place] [address], [place] [address] Jan, [facility] [address] [id number] [address] [place] [address], [place] [address] Jan, [facility] [address] [id number] [address] [place] [address], [place] [address] December, [facility] [address] [id number] [address] [place] [address], [place] [address] Oct, [facility] [address] [id number] [address] [place] [address], [place] [address] Oct, [facility] [address] [id number] [address] [place] [address], [place] [address] Oct, [facility] [address] [id number] [address] [place] [address], [place] [address] Oct, [facility] [address] [id number] [address] [place] [address], [place] [address] Aug, [facility] [address] [id number] [address] [place] [address], [place] [address] Jun, [facility] [address] [id number] [address] [place] [address], [place] [address] 16 Jun, 2012 [facility] [address] [id number] [address] [place] [address], [place] [address] Jun, [facility] [address] [id number] [address] [place] [address], [place] [address] Jun, [facility] [address] [id number] [address] [place] [address], [place] [address] May, [facility] [address] [id number] [address] [place] [address], [place] [address] Apr, [facility] [address] [id number] [address] [place] [address], [place] [address] Mar, [facility] [address] [id number] 47 [place] [address], [place] [address] Jan, [facility] [address] [id number] [address] [place] [address], [place] [address] Jan, [facility] [address] [id number] [address] [place] [address], [place] [address] December, [facility] [address] [id number] [address] [place] [address], [place] [address] December, [facility] [address] [id number] [address] [place] [address], [place] [address] December, [facility] [address] [id number] [address] [place] [address], [place] [address] December, [facility] [address] [id number] [address] [place] [address], [place] [address] Nov, [facility] [address] [id number] [address] [place] [address], [place] [address] Oct, [facility] [address] [id number] [address] [place] [address], [place] [address] Sep, [facility] [address] [id number] [address] [place] [id number] Sep, [facility] [address] [id number] [address] [place] [id number] Sep, [facility] [address] [id number] [address] [place] [id number] Sep, [facility] [address] [id number] [address] [place] [phone] Aug, [facility] [address] [id number] [address] [place] [phone] Jun, [facility] [address] [id number] [address] [place] [id number] May, [facility] [address] [id number] [address] [place] [phone] Mar, [facility] [address] [id number] [address] [place] [phone] Jun, [facility] [address] [id number] [address] [place] [phone] May, [facility] [address] [facility] [id number] [address] [place] [phone] May, IMMUNIZATIONS No Known Immunizations SOCIAL HISTORY Never Assessed REASON FOR VISIT Wound dressing, cleansed pressure ulcer on right inner thigh, right along the un derwear line, area looks smaller in comparison to thursday, slight maceration o n wound edges, instructed pt to try to keep area dry. placed silvadine over wou nd, dressed with a silicone dressing to cover the wound. Instructed pt to come back on Thursday as previously instructed by provider, pt voiced understanding- Simba Pablo RN PLAN OF CARE VITAL [...]
--- OUTSIDE RECORDS SUMMARY | 2020-02-21 11:48 | XMS REPORT ---
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 45558653 Problem Calcaneal spur, unspecified laterality M77.30 Active 72762854 Problem Edema, unspecified type R60.9 Active 480659965 Problem Other chronic pain G89.29 Active 8 3356451 Problem Major depression in partial remission F32.4 Active 09016973 Problem Major depression 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 Active 16802544 Problem Major depressive disorder, recurrent episode, mild F33.0 Active 657375490 Problem Hearing loss H91.90 Active 6295022 1 Problem Medicare welcome exam Z00.00 Active 966258268 Problem Mild acid reflux K21.9 Active 235 960271 Problem Gastroesophageal reflux disease without esophagitis K21.9 Active 228139751 ALLERGIES Substance Reaction Event Type Date Status Penicillins Unknown Non Drug Allergy Sep, Active ENCOUNTERS Encounter Location Date Diagnosis [facility] [address] [facility] [id number] [address] [place] [id number] Oct, [facility] [address] [facility] [id number] [address] [place] [phone] Sep, Scab R23.4 and BMI 40.0-44.9 , adult Z68.41 [facility] [address] [facility] [id number] [address] [place] [phone] Jun, Major depression in remissio n F32.5 [facility] [address] [id number] [address] [place] [phone] Apr, [facility] [address] [id number] [address] [place] [phone] Apr, Encounter for breast cancer screening other than mammogram Z12.39 ; Encounter for immunization Z23 and Colon cancer screening Z12.11 [facility] [address] [id number] [address] [place] [phone] Mar, Major depression in partial remission F32.4 and BMI 40.0-44.9, adult Z68.41 [facility] [address] [id number] [address] [place] [phone] Mar, [place] [address] [facility] [id number] [address] [place] [phone] Mar, Acquired hypothyroidism E03. 9 [facility] [address] [facility] [id number] [address] [place] [phone] Mar, Pain in left knee M25.562 ; Other chronic pain G89.29 and Gastroesophageal reflux disease without esophagitis K21.9 [facility] [address] [id number] [address] [place] [phone] Jan, [facility] [address] [facility] [id number] [address] [place] [phone] Jan, Acquired hypothyroidism E03. 9 [facility] [address] [id number] [address] [place] [phone] Jan, [facility] [address] [id number] [address] [place] [address] Jan, Acquired hypothyroidism E03. 9 [facility] [address] [facility] [id number] [address] [place] [address] December, Major depressive disorder in full remission, unspecified whether recurrent F32.5 [facility] [address] [facility] [id number] [address] [place] [phone] Nov, Acquired hypothyroidism E03. 9 [place] [address] [address] [place] [id number] [address] [place] [phone] Nov, Pure hypercholesterolemia E7 8.0 ; Peripheral edema R60.9 and Acquired hypothyroidism E03.9 [place] [address] [facility] [id number] [address] [place] [id number] Oct, Mild acid reflux K21.9 [place] [address] [place] [id number] [place] [address] Sep, Major depressive disorder, s glenny episode, in partial remission F32.4 and Long-term use of high-risk medication Z79.899 [place] [address] [address] Aug, Encounter for immunization Z 23 [place] [address] [address] Jul, [place] [address] [address] Jun, Medicare annual wellness vis it, initial Z00.00 ; BMI 40.0-44.9, adult Z68.41 and Encounter for immunization Z23 [place] [address] [place] [id number] [place] [address] May, [place] [address] [address] May, Encounter for immunization Z 23 [place] [address] [place] [id number] [address] [place] [phone] May, Major depression in partial remission F32.4 [place] [id number] [place] [address] Apr, Hearing loss H91.90 ; Encoun ter for immunization Z23 and Encounter for screening mammogram for breast cancer Z12.31 [place] [address] [facility] [id number] [address] [place] [address] Mar, Acquired hypothyroidism E03. 9 [facility] [address] [id number] [address] [place] [address] Jan, Acquired hypothyroidism E03. 9 [facility] [address] [id number] [address] [place] [phone] Jan, Acute midline low back pain without sciatica M54.5 [facility] [address] [id number] [address] [place] [address] Jan, Peripheral edema R60.9 [facility] [address] [id number] [address] [place] [phone] Jan, Major depression in partial remission F32.4 [facility] [address] [id number] [address] [place] [phone] Jan, Localized edema R60.0 [facility] [address] [id number] [address] [place] [phone] Nov, Pure hypercholesterolemia E7 8.0 [facility] [address] [id number] [address] [place] [phone] Nov, Pure hypercholesterolemia E7 8.0 [facility] [address] [id number] [address] [place] [phone] Nov, Peripheral edema R60.9 [facility] [address] [facility] [id number] [address] [place] [address] Oct, Major depression in partial remission F32.4 [facility] [address] [id number] [address] [place] [phone] Aug, [facility] [address] [id number] [address] [place] [phone] Aug, Elevated blood pressure read ing R03.0 [facility] [address] [id number] [address] [place] [phone] Aug, [facility] [address] [facility] [id number] [address] [place] [phone] Jun, Major depression in partial remission F32.4 [facility] [address] [id number] [address] [place] [phone] 12 Apr, 2016 Major depressive disorder, r ecurrent episode, mild F33.0 [facility] [address] [id number] [address] [place] [id number] 31 Mar, 2016 Encounter for well woman reta rios with routine gynecological exam Z01.419 and Breast cancer screening Z12.39 [facility] [address] [id number] [address] [place] [phone] 28 Feb, 2016 Hypothyroidism, unspecified type E03.9 [facility] [address] [id number] [address] [place] [phone] 12 Feb, 2016 Major depressive disorder, r ecurrent episode, mild F33.0 [facility] [address] [facility] [id number] [address] [place] [phone] 30 Jan, 2016 Abscess L02.91 [place] [address] [facility] [id number] [address] [place] [phone] Jan, Furuncle L02.92 [place] [address] [facility] [id number] [address] [place] [phone] 16 Jan, 2016 Major depression in partial remission F32.4 [facility] [address] [id number] [address] [place] [id number] 13 Jan, 2016 Major depressive disorder, r ecurrent episode, mild F33.0 [facility] [address] [id number] [address] [place] [id number] December, Acute bacterial conjunctivit is of left eye H10.022 [facility] [address] [id number] [address] [place] [phone] December, Major depressive disorder, r ecurrent episode, mild F33.0 [facility] [address] [id number] [address] [place] [phone] Nov, [facility] [address] [facility] [id number] [address] [place] [phone] Nov, Major depressive disorder, r ecurrent episode, mild F33.0 [facility] [address] [facility] [id number] [address] [place] [id number] Nov, Hearing loss H91.90 [facility] [address] [facility] [id number] [address] [place] [id number] 17 Oct, 2015 Major depression in partial remission F32.4 [facility] [address] [facility] [id number] [address] [place] [phone] 15 Oct, 2015 Pneumonia J18.9 [facility] [address] [facility] [id number] [address] [place] [id number] 10 Oct, 2015 Influenza A J10.1 ; Fever, u nspecified R50.9 ; Conjunctivitis H10.9 and Cough R05 [place] [address] [facility] [id number] [address] [place] [phone] Oct, Major depressive disorder, r ecurrent episode, severe, 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 [place] [address] [facility] [id number] [address] [place] [phone] Aug, [place] [address] [facility] [id number] [address] [place] [phone] Aug, Acquired hypothyroidism E03. 9 and Pure hypercholesterolemia E78.0 [facility] [address] [facility] [id number] [address] [place] [id number] Aug, Major depressive disorder, r ecurrent episode, severe, 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 [place] [address] [facility] [id number] [address] [place] [phone] Jul, [place] [address] [facility] [id number] [address] [place] [phone] Jul, Major depressive disorder, r ecurrent episode, severe, 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 [facility] [address] [facility] [id number] [address] [place] [id number] Jun, Major depressive disorder, r ecurrent episode, severe, 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 [facility] [address] [facility] [id number] [address] [place] [phone] May, [facility] [address] [facility] [id number] [address] [place] [phone] May, Major depressive disorder, r ecurrent episode, severe, 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 [facility] [address] [facility] [id number] [address] [place] [phone] May, Major depressive disorder, r ecurrent episode, severe, 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 [facility] [address] [facility] [id number] [address] [place] [phone] Apr, [facility] [address] [facility] [id number] [address] [place] [phone] Apr, Depressive disorder, not els ewhere classified 311 and Unspecified psychosis 298.9 [place] [address] [address] [facility] [id number] [address] [place] [phone] Apr, Depression 311 and Hard of h earing 389.9 [facility] [address] [facility] [id number] [address] [place] [phone] Apr, Schizoaffective disorder 295 .70 [place] [address] [facility] [id number] [address] [place] [phone] Apr, Major depressive disorder, r ecurrent episode, severe, specified as with psychotic behavior 296.34 [place] [address] [facility] [id number] [address] [place] [phone] Apr, Psychosis 298.9 and Depressi on 311 [place] [address] [facility] [id number] [address] [place] [phone] Apr, Depressive disorder, not els ewhere classified 311 and Unspecified psychosis 298.9 [facility] [address] [facility] [id number] [address] [place] [phone] Mar, 2015 Screening for cervical cance r V76.2 ; Well woman exam with routine gynecological exam V72.31 ; Colon cancer screening V76.51 ; Breast cancer screening V76.10 ; Irritable bowel syndrome 564.1 and Psychosis 298.9 [facility] [address] [id number] [address] [place] [phone] Mar, Psychosis 298.9 [facility] [address] [id number] [address] [place] [phone] Mar, Unspecified psychosis 298.9 [facility] [address] [id number] [address] [place] [phone] Nov, [facility] [address] [id number] [address] [place] [phone] Nov, [facility] [address] [id number] [address] [place] [phone] Oct, [facility] [address] [id number] [address] [place] [phone] Oct, [facility] [address] [id number] [address] [place] [phone] Jul, [facility] [address] [id number] [address] [place] [phone] Jul, [facility] [address] [id number] [address] [place] [phone] May, [facility] [address] [id number] [address] [place] [phone] Apr, [facility] [address] [id number] [address] [place] [phone] Apr, [facility] [address] [id number] [address] [place] [phone] 05 Apr, 2014 [facility] [address] [id number] [address] [place] [phone] 05 Apr, 2014 [facility] [address] [id number] [address] [place] [phone] Apr, [facility] [address] [id number] [facility] [place] [address] Mar, [facility] [address] [id number] [facility] [place] [address] Mar, [facility] [address] [id number] [facility] [place] [address] Mar, [facility] [address] [id number] [address] [place] [address], [place] [address] Mar, [facility] [address] [id number] [address] [place] [address], [place] [address] Mar, [facility] [address] [id number] [address] [place] [address], [place] [address] Mar, [facility] [address] [id number] [address] [place] [address], [place] [address] Mar, [facility] [address] [id number] [address] [place] [address], [place] [address] Mar, [facility] [address] [id number] [address] [place] [address], [place] [address] Mar, [facility] [address] [id number] [address] [place] [address], [place] [address] Mar, [facility] [address] [id number] [address] [place] [address], [place] [address] Jan, [facility] [address] [id number] [address] [place] [address], [place] [address] Jan, [facility] [address] [id number] [address] [place] [address], [place] [address] December, [facility] [address] [id number] [address] [place] [address], [place] [address] December, [facility] [address] [id number] [address] [place] [address], [place] [address] Nov, [facility] [address] [id number] [address] [place] [address], [place] [address] Nov, [facility] [address] [id number] [address] [place] [address], [place] [address] Sep, [facility] [address] [id number] [address] [place] [address], [place] [address] Sep, [facility] [address] [id number] [address] [place] [address], [place] [address] Sep, [facility] [address] [id number] [address] [place] [address], [place] [address] Sep, [facility] [address] [id number] [address] [place] [address], [place] [address] Jun, [facility] [address] [id number] [address] [place] [address], [place] [address] Jun, [facility] [address] [id number] [address] [place] [address], [place] [address] Jun, [facility] [address] [id number] [address] [place] [address], [place] [address] Jun, [facility] [address] [id number] [address] [place] [address], [place] [address] May, [facility] [address] [id number] [address] [place] [address], [place] [address] May, [facility] [address] [id number] [address] [place] [address], [place] [address] Apr, [facility] [address] [id number] [address] [place] [address], [place] [address] Mar, [facility] [address] [id number] [address] [place] [address], [place] [address] Mar, [facility] [address] [id number] [address] [place] [address], [place] [address] Mar, [facility] [address] [id number] [address] [place] [address], [place] [address] Mar, [facility] [address] [id number] [address] [place] [address] [place] [phone] 05 Mar, 2013 [facility] [address] [id number] [address] [place] [address], [place] [id number] 08 Jan, 2013 [facility] [address] [id number] [address] [place] [address], [place] [id number] 24 Jan, 2013 [facility] [address] [id number] [address] [place] [address], [place] [address] Jan, [facility] [address] [id number] [address] [place] [address], [place] [address] December, [facility] [address] [id number] [address] [place] [address], [place] [address] Oct, [facility] [address] [id number] [address] [place] [address], [place] [address] Oct, [facility] [address] [id number] [address] [place] [address], [place] [address] Oct, [facility] [address] [id number] [address] [place] [address], [place] [address] Oct, [facility] [address] [id number] [address] [place] [address], [place] [address] Aug, [facility] [address] [id number] [address] [place] [address], [place] [address] 16 Jun, 2012 [facility] [address] [id number] [address] [place] [address], [place] [address] 16 Jun, 2012 [facility] [address] [id number] [address] [place] [address], [place] [address] 14 Jun, 2012 [facility] [address] [id number] [address] [place] [address], [place] [address] 14 Jun, 2012 [facility] [address] [id number] [address] [place] [address], [place] [address] 05 May, 2012 [facility] [address] [id number] [address] [place] [address], [place] [id number] 10 Apr, 2012 [facility] [address] [id number] [address] [place] [address], [place] [id number] Mar, [facility] [address] [id number] [address] [place] [address], [place] [id number] Jan, [facility] [address] [id number] [address] [place] [address], [place] [id number] Jan, [facility] [address] [id number] [address] [place] [address], [place] [id number] December, [facility] [address] [id number] [address] [place] [address], [place] [id number] December, [facility] [address] [id number] [address] [place] [address], [place] [id number] December, [facility] [address] [id number] [address] [place] [address], [place] [id number] December, [facility] [address] [id number] [address] [place] [address], [place] [id number] Nov, [facility] [address] [id number] [address] [place] [address], [place] [id number] Oct, [facility] [address] [id number] [address] [place] [address], [place] [id number] Sep, [facility] [address] [id number] [address] [place] [address], [place] [id number] Sep, [facility] [address] [id number] [address] [place] [address], [place] [id number] Sep, [facility] [address] [id number] [address] [place] [address], [place] [id number] Sep, [facility] [address] [id number] [address] [place] [address], [place] [id number] Aug, [facility] [address] [id number] [address] [place] [address], [place] [id number] Jun, [facility] [address] [id number] [address] [place] [id number] May, [facility] [address] [facility] [id number] [address] [place] [id number] Mar, [facility] [address] [facility] [id number] [address] [place] [id number] Jun, [facility] [address] [facility] [id number] [address] [place] [id number] May, [facility] [address] [facility] [id number] [address] [place] [id number] May, IMMUNIZATIONS No Known Immunizations SOCIAL HISTORY Never Assessed REASON FOR VISIT leg c/o Pt has rash on inner thigh states she has had rash for a couple weeks and it dale ARIE [place] PLAN OF CARE Activity Details Follow Up prn Reason: VITAL SIGNS Height 65 in 2018-09-15 Weight 240.9 lbs 2018-09-15 Temperature 97.8 degrees Fahrenheit 2018-09-15 Heart Rate 64 bpm 2018-09-15 Respiratory Rate 20 2018-09-15 Oximetry 98 % 2018-09-15 BMI 40.08 kg/m2 2018-09-15 Blood pressure systolic 148 mmHg 2018-09-15 Blood pressure diastolic 76 mmHg 2018-09-15 MEDICATIONS Medication Instructions Dosage Frequency Start Date End Date Duration S tatus Omeprazole 20 mg Orally Once a day 1 capsule 24h 90 Active Fluoxetine HCl 10 MG TAKE THREE CAPSULES BY MOUTH ONCE DAILY IN THE MORNING 30 Active Dicyclomine HCl 20 MG TAKE ONE-HALF TABL ET BY MOUTH FOUR (4) TIMES DAILY BEFORE MEALS AND AT BEDTIME FOR URGENCY WITH BOWEL MOVEMENTS 30 Active Trazodone HCl 50 MG TAKE ONE TABLET BY MOUTH ONC E DAILY AT BEDTIME FOR SLEEP 30 Active Levothyroxine Sodium 112 MCG Orally Once a day 1 tablet on an empty stomach in the morning 24h Jan, 90 Active Aripiprazole 5 MG Orally at bedtime 1 tablet Active Lovastatin 20 MG TAKE ONE TABLET BY MOUTH ONCE DAILY 90 Active Lasix 40 mg Orally twice a day in AM and noon 1 tablet Jan, 2 017 5 days Active Bentyl 10 MG Orally Four times a day befo re meals and at bedtime for urgency with bowel movements 1 capsule 30 Acti ve RESULTS No Results PROCEDURES Procedure Date Ordered Result Body Site [facility] VISIT ESTABLISHED PATIENT Sep 15, 2018 INSTRUCTIONS MEDICATIONS ADMINISTERED No Known Medications MEDICAL (GENERAL) HISTORY Type Description Date Medical History depression Medical History hypothryroidism Medical History hyperlipidemia Medical History trauma: Stroke - with L side faci al drooping Surgical History hysterectomy Surgical History cholecystectomy Surgical History gall bladder removal Hospitalization History surgeries Hospitalization History stroke
--- OUTSIDE RECORDS SUMMARY | 2020-02-21 11:49 | XMS REPORT ---
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 29760429 Problem Hearing loss of both ears H91.93 Acti ve 72291271 Problem Acquired hypothyroidism E03.9 Active 779708679 Problem Pure hypercholesterolemia E78.0 Acti ve 272541621 Problem Major depressive disorder, recurrent episode, mild F33.0 Active 121196636 Problem Other chronic pain G89.29 Active 8 8308854 Problem Gastroesophageal reflux disease without esophagitis K21.9 Active 868188157 Problem Hearing loss H91.90 Active 9170244 1 Problem Edema, unspecified type R60.9 Active 531569369 Problem Mild acid reflux K21.9 Active 235 917923 Problem Medicare welcome exam Z00.00 Active [id number] ALLERGIES No Information ENCOUNTERS Encounter Location Date Diagnosis [facility] [address] [facility] [id number] [address] [place] [address] Jun, [facility] [address] [facility] [id number] [address] [place] [address] Apr, [place] [address] [facility] [id number] [address] [place] [address] Mar, Major depression in partial remission F32.4 and BMI 40.0-44.9, adult Z68.41 [facility] [address] [facility] [id number] [address] [place] [address] Mar, [facility] [address] [facility] [id number] [address] [place] [address] Mar, Acquired hypothyroidism E03. 9 [facility] [address] [facility] [id number] [address] [place] [address] Mar, Pain in left knee M25.562 ; Other chronic pain G89.29 and Gastroesophageal reflux disease without esophagitis K21.9 [place] [address] [facility] [id number] [address] [place] [address] Jan, [place] [address] [facility] [id number] [address] [place] [phone] Jan, Acquired hypothyroidism E03. 9 [place] [address] [facility] [id number] [address] [place] [address] Jan, [place] [address] [place] [id number] [address] [place] [address] Jan, Acquired hypothyroidism E03. 9 [place] [address] [facility] [id number] [address] [place] [address] December, Major depressive disorder in full remission, unspecified whether recurrent F32.5 [place] [address] [facility] [id number] [address] [place] [address] Nov, Acquired hypothyroidism E03. 9 [place] [address] [facility] [id number] [address] [place] [address] Nov, Pure hypercholesterolemia E7 8.0 ; Peripheral edema R60.9 and Acquired hypothyroidism E03.9 [place] [address] [facility] [id number] [address] [place] [address] Oct, Mild acid reflux K21.9 [facility] [address] [facility] [id number] [address] [place] [address] Sep, Major depressive disorder, s glenny episode, in partial remission F32.4 and Long-term use of high-risk medication Z79.899 [place] [address] [place] [id number] [address] [place] [address] Aug, Encounter for immunization Z 23 [facility] [address] [id number] [address] [place] [address] Jul, [facility] [address] [facility] [id number] [address] [place] [address] Jun, Medicare annual wellness vis it, initial Z00.00 ; BMI 40.0-44.9, adult Z68.41 and Encounter for immunization Z23 [facility] [address] [facility] [id number] [address] [place] [address] May, [facility] [address] [facility] [id number] [address] [place] [address] May, Encounter for immunization Z 23 [place] [address] [facility] [id number] [address] [place] [address] May, Major depression in partial remission F32.4 [place] [address] [place] [id number] [address] [place] [address] Apr, Hearing loss H91.90 ; Encoun ter for immunization Z23 and Encounter for screening mammogram for breast cancer Z12.31 [place] [address] [facility] [id number] [address] [place] [address] Mar, Acquired hypothyroidism E03. 9 [place] [address] [place] [id number] [address] [place] [address] Jan, Acquired hypothyroidism E03. 9 [place] [address] [facility] [id number] [address] [place] [address] Jan, Acute midline low back pain without sciatica M54.5 [place] [address] [facility] [id number] [address] [place] [address] Jan, Peripheral edema R60.9 [place] [address] [facility] [id number] [address] [place] [address] Jan, Major depression in partial remission F32.4 [place] [address] [facility] [id number] [address] [place] [address] Jan, Localized edema R60.0 [facility] [address] [id number] [address] [place] [address] Nov, Pure hypercholesterolemia E7 8.0 [facility] [address] [id number] [address] [place] [address] Nov, Pure hypercholesterolemia E7 8.0 [facility] [address] [id number] [address] [place] [address] Nov, Peripheral edema R60.9 [facility] [address] [id number] [address] [place] [address] Oct, Major depression in partial remission F32.4 [facility] [address] [id number] [address] [place] [address] Aug, [facility] [address] [facility] [id number] [address] [place] [address] Aug, Elevated blood pressure read ing R03.0 [facility] [address] [id number] [address] [place] [address] Aug, [facility] [address] [facility] [id number] [address] [place] [address] Jun, Major depression in partial remission F32.4 [facility] [address] [facility] [id number] [address] [place] [address] Apr, Major depressive disorder, r ecurrent episode, mild F33.0 [facility] [address] [facility] [id number] [address] [place] [address] Mar, Encounter for well woman exa m with routine gynecological exam Z01.419 and Breast cancer screening Z12.39 [facility] [address] [facility] [id number] [address] [place] [address] Jan, Hypothyroidism, unspecified type E03.9 [facility] [address] [facility] [id number] [address] [place] [address] Jan, Major depressive disorder, r ecurrent episode, mild F33.0 [facility] [address] [id number] [address] [place] [address] 30 Jan, 2016 Abscess L02.91 [facility] [address] [id number] [address] [place] [address] 22 Jan, 2016 Furuncle L02.92 [place] [address] [id number] [address] [place] [address] 16 Jan, 2016 Major depression in partial remission F32.4 [facility] [address] [id number] [address] [place] [address] 13 Jan, 2016 Major depressive disorder, r ecurrent episode, mild F33.0 [facility] [address] [id number] [address] [place] [address] December, Acute bacterial conjunctivit is of left eye H10.022 [place] [address] [id number] [address] [place] [address] December, Major depressive disorder, r ecurrent episode, mild F33.0 [facility] [address] [id number] [address] [place] [address] Nov, [place] [address] [id number] [address] [place] [address] Nov, Major depressive disorder, r ecurrent episode, mild F33.0 [place] [address] [id number] [address] [place] [address] 18 Nov, 2015 Hearing loss H91.90 [facility] [address] [id number] [address] [place] [address] 17 Oct, 2015 Major depression in partial remission F32.4 [place] [address] [id number] [address] [place] [address] 15 Oct, 2015 Pneumonia J18.9 [facility] [address] [facility] [id number] [address] [place] [address] 10 Oct, 2015 Influenza A J10.1 ; Fever, u nspecified R50.9 ; Conjunctivitis H10.9 and Cough R05 [facility] [address] [facility] [id number] [address] [place] [address] Oct, Major depressive disorder, r ecurrent episode, severe, 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 [facility] [address] [facility] [id number] [address] [place] [address] Aug, [facility] [address] [place] [id number] [address] [place] [address] Aug, Acquired hypothyroidism E03. 9 and Pure hypercholesterolemia E78.0 [facility] [address] [place] [id number] [address] [place] [phone] Aug, Major depressive disorder, r ecurrent episode, severe, 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 [facility] [address] [place] [id number] [address] [place] [address] Jul, [facility] [address] [place] [id number] [address] [place] [address] Jul, Major depressive disorder, r ecurrent episode, severe, 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 [facility] [address] [place] [id number] [address] [place] [address] Jun, Major depressive disorder, r ecurrent episode, severe, 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 [facility] [address] [place] [id number] [address] [place] [phone] May, [facility] [address] [facility] [id number] [address] [place] [address] May, Major depressive disorder, r ecurrent episode, severe, 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 [facility] [address] [place] [id number] [address] [place] [address] May, Major depressive disorder, r ecurrent episode, severe, 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 [facility] [address] [place] [id number] [address] [place] [address] Apr, [facility] [address] [place] [id number] [address] [place] [address] Apr, Depressive disorder, not els ewhere classified 311 and Unspecified psychosis 298.9 [facility] [address] [facility] [id number] [address] [place] [address] Apr, Depression 311 and Hard of h earing 389.9 [facility] [address] [place] [id number] [address] [place] [address] Apr, Schizoaffective disorder 295 .70 [facility] [address] [place] [id number] [address] [place] [address] 08 Apr, 2015 Major depressive disorder, r ecurrent episode, severe, specified as with psychotic behavior 296.34 [place] [address] [place] [id number] [address] [place] [address] Apr, Psychosis 298.9 and Depressi on 311 [place] [address] [place] [id number] [address] [place] [address] Apr, Depressive disorder, not els ewhere classified 311 and Unspecified psychosis 298.9 [place] [address] [place] [id number] [address] [place] [address] Mar, Screening for cervical cance r V76.2 ; Well woman exam with routine gynecological exam V72.31 ; Colon cancer screening V76.51 ; Breast cancer screening V76.10 ; Irritable bowel syndrome 564.1 and Psychosis 298.9 [facility] [address] [place] [id number] [address] [place] [address] Mar, Psychosis 298.9 [place] [address] [place] [id number] [address] [place] [address] Mar, Unspecified psychosis 298.9 [place] [address] [place] [id number] [address] [place] [address] Nov, [place] [address] [place] [id number] [address] [place] [address] Nov, [place] [address] [place] [id number] [address] [place] [phone] Oct, [facility] [address] [id number] [address] [place] [address], [place] [address] Oct, [facility] [address] [id number] [address] [place] [address], [place] [address] Jul, [facility] [address] [id number] [address] [place] [address], [place] [address] Jul, [facility] [address] [id number] [address] [place] [address], [place] [address] May, [facility] [address] [id number] [address] [place] [address], [place] [address] Apr, [facility] [address] [id number] [address] [place] [address], [place] [address] Apr, [facility] [address] [id number] [address] [place] [address], [place] [address] Apr, [facility] [address] [id number] [address] [place] [address], [place] [address] Apr, [facility] [address] [id number] [address] [place] [address], [place] [address] Apr, [facility] [address] [id number] [address] [place] [address], [place] [address] Mar, [facility] [address] [id number] [address] [place] [address], [place] [address] Mar, [facility] [address] [id number] [address] [place] [address], [place] [address] Mar, [facility] [address] [id number] [address] [place] [address], [place] [address] Mar, [facility] [address] [id number] [address] [place] [address], [place] [address] Mar, [facility] [address] [id number] [address] [place] [address], [place] [address] Mar, [facility] [address] [id number] [facility] [place] [address] Mar, [facility] [address] [id number] [facility] [place] [address] Mar, [facility] [address] [id number] [facility] [place] [address] Mar, [facility] [address] [id number] [address] [place] [address], [place] [address] Mar, [facility] [address] [id number] [address] [place] [address], [place] [address] Jan, [facility] [address] [id number] [address] [place] [address], [place] [address] Jan, [facility] [address] [id number] [address] [place] [address], [place] [address] December, [facility] [address] [id number] [address] [place] [address], [place] [address] December, [facility] [address] [id number] [address] [place] [address], [place] [address] Nov, [facility] [address] [id number] [address] [place] [address], [place] [address] Nov, [facility] [address] [id number] [address] [place] [address], [place] [address] Sep, [facility] [address] [id number] [address] [place] [address], [place] [address] Sep, [facility] [address] [id number] [address] [place] [address], [place] [address] Sep, [facility] [address] [id number] [address] [place] [address], [place] [address] Sep, [facility] [address] [id number] [address] [place] [address], [place] [address] Jun, [facility] [address] [id number] [address] [place] [address], [place] [address] Jun, [facility] [address] [id number] [address] [place] [address], [place] [address] Jun, [facility] [address] [id number] [address] [place] [address], [place] [address] Jun, [facility] [address] [id number] [address] [place] [address], [place] [address] May, [facility] [address] [id number] [address] [place] [address], [place] [address] May, [facility] [address] [id number] [address] [place] [address], [place] [address] Apr, [facility] [address] [id number] [address] [place] [address], [place] [address] Mar, [facility] [address] [id number] [address] [place] [address], [place] [address] Mar, [facility] [address] [id number] [address] [place] [address], [place] [address] Mar, [facility] [address] [id number] [address] [place] [address], [place] [address] Mar, [facility] [address] [id number] [address] [place] [address], [place] [address] Mar, [facility] [address] [id number] [address] [place] [address], [place] [address] Jan, [facility] [address] [id number] [address] [place] [address], [place] [address] Jan, [facility] [address] [id number] [address] [place] [address], [place] [address] Jan, [facility] [address] [id number] [address] [place] [address], [place] [address] December, [facility] [address] [id number] [address] [place] [address], [place] [address] Oct, [facility] [address] [id number] [address] [place] [address], [place] [address] Oct, [facility] [address] [id number] [address] [place] [address], [place] [address] Oct, [facility] [address] [id number] [address] [place] [address], [place] [address] Oct, [facility] [address] [id number] [address] [place] [address], [place] [address] Aug, [facility] [address] [id number] [address] [place] [address], [place] [address] Jun, [facility] [address] [id number] [address] [place] [address], [place] [address] Jun, [facility] [address] [id number] [address] [place] [address], [place] [address] Jun, [facility] [address] [id number] [address] [place] [address], [place] [address] Jun, [facility] [address] [id number] [address] [place] [address], [place] [address] May, [facility] [address] [id number] [address] [place] [address], [place] [address] Apr, [facility] [address] [id number] [address] [place] [address], [place] [address] Mar, [facility] [address] [id number] [address] [place] [address], [place] [address] Jan, [facility] [address] [id number] [address] [place] [address], [place] [address] Jan, [facility] [address] [id number] [address] [place] [address], [place] [address] December, [facility] [address] [id number] [address] [place] [address], [place] [address] December, [facility] [address] [id number] [address] [place] [address], [place] [address] December, [facility] [address] [id number] [address] [place] [address] December, [facility] [address] [id number] [address] [place] [address] Nov, [facility] [address] [id number] [address] [place] [phone] Oct, [facility] [address] [id number] [address] [place] [phone] Sep, [facility] [address] [id number] [address] [place] [phone] Sep, [facility] [address] [id number] [address] [place] [phone] Sep, [facility] [address] [id number] [address] [place] [phone] Sep, [facility] [address] [id number] [address] [place] [phone] Aug, [facility] [address] [id number] [address] [place] [phone] Jun, [facility] [address] [id number] [address] [place] [phone] May, [facility] [address] [id number] [address] [place] [phone] Mar, [facility] [address] [id number] [address] [place] [phone] Jun, [facility] [address] [id number] [address] [place] [id number] May, [facility] [address] [id number] [address] [place] [phone] May, IMMUNIZATIONS No Known Immunizations SOCIAL HISTORY Never Assessed REASON FOR VISIT Lab (walk-in) PLAN OF CARE VITAL SIGNS MEDICATIONS Unknown Medications RESULTS No Results PROCEDURES Procedure Date Ordered Result Body Site LAB NOT BILLED BY [facility] Mar 10, 2018 PETORS, ARTURO* Mar 10, 2018 INSTRUCTIONS MEDICATIONS ADMINISTERED No Known Medications MEDICAL (GENERAL) HISTORY Type Description Date Medical History depression Medical History hypothryroidism Medical History hyperlipidemia Medical History trauma: Stroke - with L side faci al drooping Surgical History hysterectomy Surgical History cholecystectomy Surgical History gall bladder removal Hospitalization History surgeries Hospitalization History stroke
--- OUTSIDE RECORDS SUMMARY | 2020-02-21 11:49 | XMS REPORT ---
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 94968486 Problem Hearing loss of both ears H91.93 Acti ve 28239624 Problem Acquired hypothyroidism E03.9 Active 556980886 Problem Pure hypercholesterolemia E78.0 Acti ve 160208605 Problem Major depressive disorder, recurrent episode, mild F33.0 Active 993720131 Problem Other chronic pain G89.29 Active 8 6156529 Problem Gastroesophageal reflux disease without esophagitis K21.9 Active 823334956 Problem Hearing loss H91.90 Active 6966431 1 Problem Edema, unspecified type R60.9 Active 518568326 Problem Mild acid reflux K21.9 Active 235 849923 Problem Medicare welcome exam Z00.00 Active 766914205 ALLERGIES Substance Reaction Event Type Date Status Penicillins Unknown Non Drug Allergy Mar, Active ENCOUNTERS Encounter Location Date Diagnosis [facility] [address] [facility] [id number] [address] [place] [phone] Jun, [facility] [address] [facility] [id number] [address] [place] [address] Apr, [facility] [address] [facility] [id number] [address] [place] [address] Apr, Encounter for breast cancer screening other than mammogram Z12.39 ; Encounter for immunization Z23 and Colon cancer screening Z12.11 [facility] [address] [facility] [id number] [address] [place] [address] Mar, Major depression in partial remission F32.4 and BMI 40.0-44.9, adult Z68.41 [facility] [address] [facility] [id number] [address] [place] [address] Mar, [facility] [address] [facility] [id number] [address] [place] [address] Mar, Acquired hypothyroidism E03. 9 [facility] [address] [place] [id number] [address] [place] [address] Mar, Pain in left knee M25.562 ; Other chronic pain G89.29 and Gastroesophageal reflux disease without esophagitis K21.9 [facility] [address] [place] [id number] [address] [place] [address] Jan, [facility] [address] [place] [id number] [address] [place] [address] Jan, Acquired hypothyroidism E03. 9 [facility] [address] [facility] [id number] [address] [place] [address] Jan, [facility] [address] [place] [id number] [place] [address] Jan, Acquired hypothyroidism E03. 9 [facility] [address] [place] [id number] [address] [place] [address] December, Major depressive disorder in full remission, unspecified whether recurrent F32.5 [facility] [address] [facility] [id number] [address] [place] [address] Nov, Acquired hypothyroidism E03. 9 [facility] [address] [facility] [id number] [address] [place] [address] Nov, Pure hypercholesterolemia E7 8.0 ; Peripheral edema R60.9 and Acquired hypothyroidism E03.9 [facility] [address] [facility] [id number] [address] [place] [address] Oct, Mild acid reflux K21.9 [facility] [address] [facility] [id number] [address] [place] [address] 08 Sep, 2017 Major depressive disorder, s glenny episode, in partial remission F32.4 and Long-term use of high-risk medication Z79.899 [facility] [address] [facility] [id number] [address] [place] [address] Aug, Encounter for immunization Z 23 [facility] [address] [facility] [id number] [address] [place] [address] Jul, [place] [address] [place] [id number] [place] [address] Jun, Medicare annual wellness vis it, initial Z00.00 ; BMI 40.0-44.9, adult Z68.41 and Encounter for immunization Z23 [place] [address] [place] [id number] [address] [place] [address] May, [place] [address] [place] [id number] [place] [address] May, Encounter for immunization Z 23 [place] [address] [place] [id number] [place] [address] May, Major depression in partial remission F32.4 [place] [address] [place] [id number] [place] [address] Apr, Hearing loss H91.90 ; Encoun ter for immunization Z23 and Encounter for screening mammogram for breast cancer Z12.31 [place] [address] [facility] [id number] [address] [place] [address] Mar, Acquired hypothyroidism E03. 9 [place] [address] [facility] [id number] [address] [place] [address] Jan, Acquired hypothyroidism E03. 9 [place] [address] [place] [id number] [address] [place] [address] Jan, Acute midline low back pain without sciatica M54.5 [place] [address] [place] [id number] [address] [place] [address] Jan, Peripheral edema R60.9 [facility] [address] [id number] [address] [place] [address] Jan, Major depression in partial remission F32.4 [facility] [address] [id number] [address] [place] [address] Jan, Localized edema R60.0 [facility] [address] [id number] [address] [place] [address] Nov, Pure hypercholesterolemia E7 8.0 [facility] [address] [id number] [address] [place] [address] Nov, Pure hypercholesterolemia E7 8.0 [facility] [address] [id number] [address] [place] [address] Nov, Peripheral edema R60.9 [facility] [address] [id number] [address] [place] [address] Oct, Major depression in partial remission F32.4 [facility] [address] [id number] [address] [place] [address] Aug, [facility] [address] [id number] [address] [place] [address] Aug, Elevated blood pressure read ing R03.0 [facility] [address] [id number] [address] [place] [address] Aug, [facility] [address] [id number] [address] [place] [address] Jun, Major depression in partial remission F32.4 [facility] [address] [id number] [address] [place] [address] Apr, Major depressive disorder, r ecurrent episode, mild F33.0 [facility] [address] [id number] [address] [place] [address] Mar, Encounter for well woman exa m with routine gynecological exam Z01.419 and Breast cancer screening Z12.39 [facility] [address] [id number] [address] [place] [address] Jan, Hypothyroidism, unspecified type E03.9 [facility] [address] [id number] [address] [place] [address] Jan, Major depressive disorder, r ecurrent episode, mild F33.0 [facility] [address] [id number] [address] [place] [address] 30 Jan, 2016 Abscess L02.91 [facility] [address] [id number] [address] [place] [address] Jan, Furuncle L02.92 [place] [address] [id number] [address] [place] [address] 16 Jan, 2016 Major depression in partial remission F32.4 [place] [address] [id number] [address] [place] [address] 13 Jan, 2016 Major depressive disorder, r ecurrent episode, mild F33.0 [facility] [address] [id number] [address] [place] [address] December, Acute bacterial conjunctivit is of left eye H10.022 [place] [address] [id number] [address] [place] [address] December, Major depressive disorder, r ecurrent episode, mild F33.0 [facility] [address] [id number] [address] [place] [address] Nov, [facility] [address] [id number] [address] [place] [address] Nov, Major depressive disorder, r ecurrent episode, mild F33.0 [facility] [address] [id number] [address] [place] [address] 18 Nov, 2015 Hearing loss H91.90 [facility] [address] [id number] [address] [place] [address] Oct, Major depression in partial remission F32.4 [facility] [id number] [place] [address] 15 Oct, 2015 Pneumonia J18.9 [facility] [address] [place] [id number] [address] [place] [address] 10 Oct, 2015 Influenza A J10.1 ; Fever, u nspecified R50.9 ; Conjunctivitis H10.9 and Cough R05 [facility] [address] [place] [id number] [address] [place] [address] 10 Oct, 2015 Major depressive disorder, r ecurrent episode, severe, 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 [facility] [address] [place] [id number] [address] [place] [address] Aug, [place] [address] [address] Aug, Acquired hypothyroidism E03. 9 and Pure hypercholesterolemia E78.0 [facility] [address] [address] Aug, Major depressive disorder, r ecurrent episode, severe, 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 [place] [address] [address] Jul, [place] [address] [address] Jul, Major depressive disorder, r ecurrent episode, severe, 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 [facility] [address] [place] [id number] [address] [place] [address] Jun, Major depressive disorder, r ecurrent episode, severe, 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 [place] [address] [place] [id number] [address] [place] [phone] May, [place] [address] [address] May, Major depressive disorder, r ecurrent episode, severe, 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 [place] [address] [address] May, Major depressive disorder, r ecurrent episode, severe, 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 [facility] [address] [facility] [id number] [address] [place] [address] Apr, [facility] [address] [facility] [id number] [address] [place] [address] Apr, Depressive disorder, not els ewhere classified 311 and Unspecified psychosis 298.9 [facility] [address] [facility] [id number] [address] [place] [address] Apr, Depression 311 and Hard of h earing 389.9 [facility] [address] [facility] [id number] [address] [place] [address] Apr, Schizoaffective disorder 295 .70 [facility] [address] [place] [id number] [address] [place] [address] Apr, Major depressive disorder, r ecurrent episode, severe, specified as with psychotic behavior 296.34 [facility] [address] [facility] [id number] [address] [place] [address] Apr, Psychosis 298.9 and Depressi on 311 [facility] [address] [facility] [id number] [address] [place] [phone] Apr, Depressive disorder, not els ewhere classified 311 and Unspecified psychosis 298.9 [place] [address] [facility] [id number] [address] [place] [address] Mar, Screening for cervical cance r V76.2 ; Well woman exam with routine gynecological exam V72.31 ; Colon cancer screening V76.51 ; Breast cancer screening V76.10 ; Irritable bowel syndrome 564.1 and Psychosis 298.9 [facility] [address] [facility] [id number] [address] [place] [address] Mar, Psychosis 298.9 [facility] [address] [place] [id number] [address] [place] [address] Mar, Unspecified psychosis 298.9 [facility] [address] [id number] [address] [place] [address], [place] [address] 14 Nov, 2014 [facility] [address] [id number] [address] [place] [address], [place] [address] 13 Nov, 2014 [facility] [address] [id number] [address] [place] [address], [place] [address] Oct, [facility] [address] [id number] [address] [place] [address], [place] [address] Oct, [facility] [address] [id number] [address] [place] [address], [place] [address] Jul, [facility] [address] [id number] [address] [place] [address], [place] [address] Jul, [facility] [address] [id number] [address] [place] [address], [place] [address] May, [facility] [address] [id number] [address] [place] [address], [place] [address] Apr, [facility] [address] [id number] [address] [place] [address], [place] [address] Apr, [facility] [address] [id number] [address] [place] [address], [place] [address] 05 Apr, 2014 [facility] [address] [id number] [address] [place] [address], [place] [address] 05 Apr, 2014 [facility] [address] [id number] [address] [place] [address], [place] [address] Apr, [facility] [address] [id number] [address] [place] [address], [place] [address] Mar, [facility] [address] [id number] [address] [place] [address], [place] [address] Mar, [facility] [address] [id number] [address] [place] [address], [place] [address] Mar, [facility] [address] [id number] [address] [place] [address], [place] [address] Mar, [facility] [address] [id number] [facility] [place] [address] Mar, [facility] [address] [id number] [address] [place] [address], [place] [address] Mar, [facility] [address] [id number] [address] [place] [address], [place] [address] Mar, [facility] [address] [id number] [address] [place] [address], [place] [address] Mar, [facility] [address] [id number] [address] [place] [address], [place] [address] Mar, [facility] [address] [id number] [address] [place] [address], [place] [address] Mar, [facility] [address] [id number] [address] [place] [address], [place] [address] Jan, [facility] [address] [id number] [address] [place] [address], [place] [address] Jan, [facility] [address] [id number] [address] [place] [address], [place] [address] December, [facility] [address] [id number] [address] [place] [address], [place] [address] December, [facility] [address] [id number] [address] [place] [address], [place] [address] Nov, [facility] [address] [id number] [address] [place] [address], [place] [address] Nov, [facility] [address] [id number] [address] [place] [address], [place] [address] Sep, [facility] [address] [id number] [address] [place] [address], [place] [address] Sep, [facility] [address] [id number] [address] [place] [address], [place] [address] Sep, [facility] [address] [id number] [address] [place] [address], [place] [address] Sep, [facility] [address] [id number] [address] [place] [address], [place] [address] Jun, [facility] [address] [id number] [address] [place] [address], [place] [address] Jun, [facility] [address] [id number] [address] [place] [address], [place] [address] Jun, [facility] [address] [id number] [address] [place] [address], [place] [address] Jun, [facility] [address] [id number] [address] [place] [address], [place] [address] May, [facility] [address] [id number] [address] [place] [address], [place] [address] May, [facility] [address] [id number] [address] [place] [address], [place] [address] Apr, [facility] [address] [id number] [address] [place] [address], [place] [address] Mar, [facility] [address] [id number] [address] [place] [address], [place] [address] Mar, [facility] [address] [id number] [address] [place] [address], [place] [address] Mar, [facility] [address] [id number] [address] [place] [address], [place] [address] Mar, [facility] [address] [id number] [address] [place] [address], [place] [address] Mar, [facility] [address] [id number] [address] [place] [address], [place] [address] Jan, [facility] [address] [id number] [address] [place] [address], [place] [address] Jan, [facility] [address] [id number] [address] [place] [address], [place] [address] Jan, [facility] [address] [id number] [address] [place] [address], [place] [address] December, [facility] [address] [id number] [address] [place] [address], [place] [address] Oct, [facility] [address] [id number] [address] [place] [address], [place] [address] Oct, [facility] [address] [id number] [address] [place] [address], [place] [address] Oct, [facility] [address] [id number] [address] [place] [address], [place] [address] Oct, [facility] [address] [id number] [address] [place] [address], [place] [address] Aug, [facility] [address] [id number] [address] [place] [address], [place] [address] Jun, [facility] [address] [id number] [address] [place] [address], [place] [address] Jun, [facility] [address] [id number] [address] [place] [address], [place] [address] Jun, [facility] [address] [id number] [address] [place] [address], [place] [address] Jun, [facility] [address] [id number] [address] [place] [address], [place] [address] 05 May, 2012 [facility] [address] [id number] [address] [place] [address], [place] [address] Apr, [facility] [address] [id number] [address] [place] [address], [place] [address] Mar, [facility] [address] [id number] [address] [place] [address], [place] [address] Jan, [facility] [address] [id number] [address] [place] [address], [place] [address] Jan, [facility] [address] [id number] [address] [place] [address], [place] [address] December, [facility] [address] [id number] [address] [place] [address], [place] [address] December, [facility] [address] [id number] [address] [place] [address], [place] [address] December, [facility] [address] [id number] [address] [place] [address], [place] [address] December, [facility] [address] [id number] [address] [place] [address], [place] [address] Nov, [facility] [address] [id number] [address] [place] [address], [place] [address] Oct, [facility] [address] [id number] [address] [place] [address], [place] [address] Sep, [facility] [address] [id number] [address] [place] [address], [place] [address] Sep, [facility] [address] [id number] [address] [place] [address], [place] [address] Sep, [facility] [address] [id number] [address] [place] [address], [place] [id number] Sep, [facility] [address] [id number] [address] [place] [address], [place] [id number] Aug, [facility] [address] [id number] [address] [place] [address], [place] [id number] Jun, [facility] [address] [id number] [address] [place] [address], [place] [id number] May, [facility] [address] [id number] [address] [place] [address], [place] [id number] Mar, [facility] [address] [id number] [address] [place] [address], [place] [id number] Jun, [facility] [address] [id number] [address] [place] [address], [place] [address] May, [facility] [address] [id number] [address] [place] [address] 12 May, 2009 IMMUNIZATIONS No Known Immunizations SOCIAL HISTORY Never Assessed REASON FOR VISIT f/u Erasmo PLAN OF CARE Activity Details Follow Up 3 Months Reason: VITAL SIGNS Height 65 in 2018-04-01 Weight 243.6 lbs 2018-04-01 Heart Rate 68 bpm 2018-04-01 Respiratory Rate 20 2018-04-01 BMI 40.53 kg/m2 2018-04-01 Blood pressure systolic 112 mmHg 2018-04-01 Blood pressure diastolic 78 mmHg 2018-04-01 MEDICATIONS Medication Instructions Dosage Frequency Start Date End Date Duration S tatus Bentyl 10 MG Orally Four times a day befo re meals and at bedtime for urgency with bowel movements 1 capsule 30 Acti ve Omeprazole 20 mg Orally Once a day 1 capsule 24h Mar, 90 days Active Fluoxetine HCl 10 MG TAKE THREE CAPSULES BY MOUTH ONCE DAILY IN THE MORNING Active Aripiprazole 5 MG Orally at bedtime 1 tablet Active Levothyroxine Sodium 112 MCG Orally Once a day 1 tablet on an empty stomach in the morning 24h Jan, 90 Active Lovastatin 20 MG TAKE ONE TABLET BY MOUTH ONCE DAILY 90 Active Lasix 40 mg Orally twice a day in AM and noon 1 tablet Jan, 017 05 days Active Trazodone HCl 50 MG TAKE ONE TABLET BY MOUTH ONC E DAILY AT BEDTIME FOR SLEEP Active RESULTS No Results PROCEDURES Procedure Date Ordered Result Body Site [facility] VISIT ESTABLISHED PATIENT Apr 01, 2018 INSTRUCTIONS MEDICATIONS ADMINISTERED No Known Medications MEDICAL (GENERAL) HISTORY Type Description Date Medical History depression Medical History hypothryroidism Medical History hyperlipidemia Medical History trauma: Stroke - with L side faci al drooping Surgical History hysterectomy Surgical History cholecystectomy Surgical History gall bladder removal Hospitalization History surgeries Hospitalization History stroke
--- OUTSIDE RECORDS SUMMARY | 2020-02-21 11:49 | XMS REPORT ---
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 21082514 Problem Hearing loss of both ears H91.93 Acti ve 37284148 Problem Acquired hypothyroidism E03.9 Active 964565077 Problem Pure hypercholesterolemia E78.0 Acti ve 866404888 Problem Major depressive disorder, recurrent episode, mild F33.0 Active 408726401 Problem Other chronic pain G89.29 Active 8 8418234 Problem Gastroesophageal reflux disease without esophagitis K21.9 Active 429286221 Problem Hearing loss H91.90 Active 4366872 1 Problem Edema, unspecified type R60.9 Active 497555350 Problem Mild acid reflux K21.9 Active 235 173941 Problem Medicare welcome exam Z00.00 Active [id number] ALLERGIES No Information ENCOUNTERS Encounter Location Date Diagnosis [facility] [address] [facility] [id number] [address] [place] [phone] Jun, [facility] [address] [facility] [id number] [address] [place] [phone] Apr, [place] [address] [facility] [id number] [address] [place] [phone] Mar, Major depression in partial remission F32.4 and BMI 40.0-44.9, adult Z68.41 [facility] [address] [facility] [id number] [address] [place] [phone] Mar, [facility] [address] [facility] [id number] [address] [place] [phone] Mar, Acquired hypothyroidism E03. 9 [facility] [address] [facility] [id number] [address] [place] [address] Mar, Pain in left knee M25.562 ; Other chronic pain G89.29 and Gastroesophageal reflux disease without esophagitis K21.9 [place] [address] [facility] [id number] [address] [place] [address] Jan, [place] [address] [facility] [id number] [address] [place] [address] Jan, Acquired hypothyroidism E03. 9 [place] [address] [facility] [id number] [address] [place] [address] Jan, [place] [address] [place] [id number] [address] [place] [phone] Jan, Acquired hypothyroidism E03. 9 [place] [address] [facility] [id number] [address] [place] [phone] December, Major depressive disorder in full remission, unspecified whether recurrent F32.5 [place] [address] [facility] [id number] [address] [place] [phone] Nov, Acquired hypothyroidism E03. 9 [place] [address] [facility] [id number] [address] [place] [phone] Nov, Pure hypercholesterolemia E7 8.0 ; Peripheral edema R60.9 and Acquired hypothyroidism E03.9 [place] [address] [facility] [id number] [address] [place] [phone] Oct, Mild acid reflux K21.9 [facility] [address] [facility] [id number] [address] [place] [address] Sep, Major depressive disorder, s glenny episode, in partial remission F32.4 and Long-term use of high-risk medication Z79.899 [place] [address] [place] [id number] [address] [place] [id number] Aug, Encounter for immunization Z 23 [facility] [address] [id number] [address] [place] [id number] Jul, [facility] [address] [facility] [id number] [address] [place] [id number] Jun, Medicare annual wellness vis it, initial Z00.00 ; BMI 40.0-44.9, adult Z68.41 and Encounter for immunization Z23 [facility] [address] [facility] [id number] [address] [place] [phone] May, [facility] [address] [facility] [id number] [address] [place] [id number] May, Encounter for immunization Z 23 [place] [address] [facility] [id number] [address] [place] [phone] May, Major depression in partial remission F32.4 [place] [address] [place] [id number] [address] [place] [phone] Apr, Hearing loss H91.90 ; Encoun ter for immunization Z23 and Encounter for screening mammogram for breast cancer Z12.31 [place] [address] [facility] [id number] [address] [place] [id number] Mar, Acquired hypothyroidism E03. 9 [place] [address] [place] [id number] [address] [place] [phone] Jan, Acquired hypothyroidism E03. 9 [place] [address] [facility] [id number] [address] [place] [address] Jan, Acute midline low back pain without sciatica M54.5 [place] [address] [facility] [id number] [address] [place] [phone] Jan, Peripheral edema R60.9 [place] [address] [facility] [id number] [address] [place] [phone] Jan, Major depression in partial remission F32.4 [place] [address] [facility] [id number] [address] [place] [phone] Jan, Localized edema R60.0 [facility] [address] [id number] [address] [place] [phone] Nov, Pure hypercholesterolemia E7 8.0 [facility] [address] [id number] [address] [place] [phone] Nov, Pure hypercholesterolemia E7 8.0 [facility] [address] [id number] [address] [place] [phone] Nov, Peripheral edema R60.9 [facility] [address] [id number] [address] [place] [phone] Oct, Major depression in partial remission F32.4 [facility] [address] [id number] [address] [place] [phone] Aug, [facility] [address] [facility] [id number] [address] [place] [phone] Aug, Elevated blood pressure read ing R03.0 [facility] [address] [id number] [address] [place] [id number] Aug, [facility] [address] [facility] [id number] [address] [place] [id number] Jun, Major depression in partial remission F32.4 [facility] [address] [facility] [id number] [address] [place] [phone] Apr, Major depressive disorder, r ecurrent episode, mild F33.0 [facility] [address] [facility] [id number] [address] [place] [id number] Mar, Encounter for well woman exa m with routine gynecological exam Z01.419 and Breast cancer screening Z12.39 [facility] [address] [facility] [id number] [address] [place] [phone] Jan, Hypothyroidism, unspecified type E03.9 [facility] [address] [facility] [id number] [address] [place] [id number] Jan, Major depressive disorder, r ecurrent episode, mild F33.0 [facility] [address] [id number] [address] [place] [id number] 30 Jan, 2016 Abscess L02.91 [facility] [address] [id number] [address] [place] [id number] 22 Jan, 2016 Furuncle L02.92 [place] [address] [id number] [address] [place] [phone] 16 Jan, 2016 Major depression in partial remission F32.4 [facility] [address] [id number] [address] [place] [phone] 13 Jan, 2016 Major depressive disorder, r ecurrent episode, mild F33.0 [facility] [address] [id number] [address] [place] [address] December, Acute bacterial conjunctivit is of left eye H10.022 [place] [address] [id number] [address] [place] [phone] December, Major depressive disorder, r ecurrent episode, mild F33.0 [facility] [address] [id number] [address] [place] [phone] Nov, [place] [address] [id number] [address] [place] [phone] Nov, Major depressive disorder, r ecurrent episode, mild F33.0 [place] [address] [id number] [address] [place] [id number] 18 Nov, 2015 Hearing loss H91.90 [facility] [address] [id number] [address] [place] [id number] 17 Oct, 2015 Major depression in partial remission F32.4 [place] [address] [id number] [address] [place] [id number] 15 Oct, 2015 Pneumonia J18.9 [facility] [address] [facility] [id number] [address] [place] [id number] 10 Oct, 2015 Influenza A J10.1 ; Fever, u nspecified R50.9 ; Conjunctivitis H10.9 and Cough R05 [facility] [address] [facility] [id number] [address] [place] [phone] Oct, Major depressive disorder, r ecurrent episode, severe, 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 [facility] [address] [facility] [id number] [address] [place] [phone] Aug, [facility] [address] [place] [id number] [address] [place] [phone] Aug, Acquired hypothyroidism E03. 9 and Pure hypercholesterolemia E78.0 [facility] [address] [place] [id number] [address] [place] [id number] Aug, Major depressive disorder, r ecurrent episode, severe, 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 [facility] [address] [place] [id number] [address] [place] [id number] Jul, [facility] [address] [place] [id number] [address] [place] [phone] Jul, Major depressive disorder, r ecurrent episode, severe, 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 [facility] [address] [place] [id number] [address] [place] [phone] Jun, Major depressive disorder, r ecurrent episode, severe, 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 [facility] [address] [place] [id number] [address] [place] [id number] May, [facility] [address] [facility] [id number] [address] [place] [phone] May, Major depressive disorder, r ecurrent episode, severe, 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 [facility] [address] [place] [id number] [address] [place] [id number] May, Major depressive disorder, r ecurrent episode, severe, 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 [facility] [address] [place] [id number] [address] [place] [phone] Apr, [facility] [address] [place] [id number] [address] [place] [phone] Apr, Depressive disorder, not els ewhere classified 311 and Unspecified psychosis 298.9 [facility] [address] [facility] [id number] [address] [place] [id number] Apr, Depression 311 and Hard of h earing 389.9 [facility] [address] [place] [id number] [address] [place] [phone] Apr, Schizoaffective disorder 295 .70 [facility] [address] [place] [id number] [address] [place] [id number] 08 Apr, 2015 Major depressive disorder, r ecurrent episode, severe, specified as with psychotic behavior 296.34 [place] [address] [place] [id number] [address] [place] [id number] Apr, Psychosis 298.9 and Depressi on 311 [place] [address] [place] [id number] [address] [place] [phone] Apr, Depressive disorder, not els ewhere classified 311 and Unspecified psychosis 298.9 [place] [address] [place] [id number] [address] [place] [id number] Mar, Screening for cervical cance r V76.2 ; Well woman exam with routine gynecological exam V72.31 ; Colon cancer screening V76.51 ; Breast cancer screening V76.10 ; Irritable bowel syndrome 564.1 and Psychosis 298.9 [facility] [address] [place] [id number] [address] [place] [id number] Mar, Psychosis 298.9 [place] [address] [place] [id number] [address] [place] [id number] Mar, Unspecified psychosis 298.9 [place] [address] [place] [id number] [address] [place] [phone] Nov, [place] [address] [place] [id number] [address] [place] [phone] Nov, [place] [address] [place] [id number] [address] [place] [phone] Oct, [facility] [address] [id number] [address] [place] [address], [place] [address] Oct, [facility] [address] [id number] [address] [place] [address], [place] [address] Jul, [facility] [address] [id number] [address] [place] [address], [place] [address] Jul, [facility] [address] [id number] [address] [place] [address], [place] [address] May, [facility] [address] [id number] [address] [place] [address], [place] [address] Apr, [facility] [address] [id number] [address] [place] [address], [place] [address] Apr, [facility] [address] [id number] [address] [place] [address], [place] [address] Apr, [facility] [address] [id number] [address] [place] [address], [place] [address] Apr, [facility] [address] [id number] [address] [place] [address], [place] [address] Apr, [facility] [address] [id number] [address] [place] [address], [place] [address] Mar, [facility] [address] [id number] [address] [place] [address], [place] [address] Mar, [facility] [address] [id number] [address] [place] [address], [place] [address] Mar, [facility] [address] [id number] [address] [place] [address], [place] [address] Mar, [facility] [address] [id number] [address] [place] [address], [place] [address] Mar, [facility] [address] [id number] [address] [place] [address], [place] [address] Mar, [facility] [address] [id number] [facility] [place] [address] Mar, [facility] [address] [id number] [facility] [place] [address] Mar, [facility] [address] [id number] [facility] [place] [address] Mar, [facility] [address] [id number] [address] [place] [address], [place] [address] Mar, [facility] [address] [id number] [address] [place] [address], [place] [address] Jan, [facility] [address] [id number] [address] [place] [address], [place] [address] Jan, [facility] [address] [id number] [address] [place] [address], [place] [address] December, [facility] [address] [id number] [address] [place] [address], [place] [address] December, [facility] [address] [id number] [address] [place] [address], [place] [address] Nov, [facility] [address] [id number] [address] [place] [address], [place] [address] Nov, [facility] [address] [id number] [address] [place] [address], [place] [address] Sep, [facility] [address] [id number] [address] [place] [address], [place] [address] Sep, [facility] [address] [id number] [address] [place] [address], [place] [address] Sep, [facility] [address] [id number] [address] [place] [address], [place] [address] Sep, [facility] [address] [id number] [address] [place] [address], [place] [address] Jun, [facility] [address] [id number] [address] [place] [address], [place] [address] Jun, [facility] [address] [id number] [address] [place] [address], [place] [address] Jun, [facility] [address] [id number] [address] [place] [address], [place] [address] Jun, [facility] [address] [id number] [address] [place] [address], [place] [address] May, [facility] [address] [id number] [address] [place] [address], [place] [address] May, [facility] [address] [id number] [address] [place] [address], [place] [address] Apr, [facility] [address] [id number] [address] [place] [address], [place] [address] Mar, [facility] [address] [id number] [address] [place] [address], [place] [address] Mar, [facility] [address] [id number] [address] [place] [address], [place] [address] Mar, [facility] [address] [id number] [address] [place] [address], [place] [address] Mar, [facility] [address] [id number] [address] [place] [address], [place] [address] Mar, [facility] [address] [id number] [address] [place] [address], [place] [address] Jan, [facility] [address] [id number] [address] [place] [address], [place] [address] Jan, [facility] [address] [id number] [address] [place] [address], [place] [address] Jan, [facility] [address] [id number] [address] [place] [address], [place] [address] December, [facility] [address] [id number] [address] [place] [address], [place] [address] Oct, [facility] [address] [id number] [address] [place] [address], [place] [address] Oct, [facility] [address] [id number] [address] [place] [address], [place] [address] Oct, [facility] [address] [id number] [address] [place] [address], [place] [address] Oct, [facility] [address] [id number] [address] [place] [address], [place] [address] Aug, [facility] [address] [id number] [address] [place] [address], [place] [address] Jun, [facility] [address] [id number] [address] [place] [address], [place] [address] Jun, [facility] [address] [id number] [address] [place] [address], [place] [address] Jun, [facility] [address] [id number] [address] [place] [address], [place] [address] Jun, [facility] [address] [id number] [address] [place] [address], [place] [address] May, [facility] [address] [id number] [address] [place] [address], [place] [address] Apr, [facility] [address] [id number] [address] [place] [address], [place] [address] Mar, [facility] [address] [id number] [address] [place] [address], [place] [address] Jan, [facility] [address] [id number] [address] [place] [address], [place] [address] Jan, [facility] [address] [id number] [address] [place] [address], [place] [address] December, [facility] [address] [id number] [address] [place] [address], [place] [address] December, [facility] [address] [id number] [address] [place] [address], [place] [address] December, [facility] [address] [id number] [address] [place] [address] December, [facility] [address] [id number] [address] [place] [address] Nov, [facility] [address] [id number] [address] [place] [address] Oct, [facility] [address] [id number] [address] [place] [address] Sep, [facility] [address] [id number] [address] [place] [phone] Sep, [facility] [address] [id number] [address] [place] [phone] Sep, [facility] [address] [id number] [address] [place] [phone] Sep, [facility] [address] [id number] [address] [place] [phone] Aug, [facility] [address] [id number] [address] [place] [phone] Jun, [facility] [address] [id number] [address] [place] [phone] May, [facility] [address] [id number] [address] [place] [phone] Mar, [facility] [address] [id number] [address] [place] [phone] Jun, [facility] [address] [id number] [address] [place] [phone] May, [facility] [address] [id number] [address] [place] [phone] May, IMMUNIZATIONS No Known Immunizations SOCIAL HISTORY Never Assessed REASON FOR VISIT Lab results PLAN OF CARE VITAL SIGNS MEDICATIONS Medication Instructions Dosage Frequency Start Date End Date Duration S mark Levothyroxine Sodium 112 MCG Orally Once a day 1 tablet on an empty stomach in the morning 24h Jan, 30 day(s) Active RESULTS No Results PROCEDURES No Known [...]
--- OUTSIDE RECORDS SUMMARY | 2020-02-21 11:49 | XMS REPORT ---
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 57531197 Problem Hearing loss of both ears H91.93 Acti ve 48040568 Problem Acquired hypothyroidism E03.9 Active 758676394 Problem Pure hypercholesterolemia E78.0 Acti ve 123278397 Problem Major depressive disorder, recurrent episode, mild F33.0 Active 468843940 Problem Other chronic pain G89.29 Active 8 3810175 Problem Gastroesophageal reflux disease without esophagitis K21.9 Active 459240424 Problem Hearing loss H91.90 Active 1164724 1 Problem Edema, unspecified type R60.9 Active 176821378 Problem Mild acid reflux K21.9 Active 235 876210 Problem Medicare welcome exam Z00.00 Active [id number] ALLERGIES No Information ENCOUNTERS Encounter Location Date Diagnosis [place] [id number] [facility] [id number] [address] [place] [address] Jun, [facility] [address] [facility] [id number] [address] [place] [address] Apr, [place] [address] [facility] [id number] [address] [place] [address] Apr, Encounter for breast cancer screening other than mammogram Z12.39 ; Encounter for immunization Z23 and Colon cancer screening Z12.11 [place] [address] [facility] [id number] [address] [place] [address] Mar, Major depression in partial remission F32.4 and BMI 40.0-44.9, adult Z68.41 [facility] [address] [id number] [address] [place] [address] Mar, [facility] [address] [id number] [address] [place] [address] Mar, Acquired hypothyroidism E03. 9 [facility] [address] [id number] [address] [place] [address] Mar, Pain in left knee M25.562 ; Other chronic pain G89.29 and Gastroesophageal reflux disease without esophagitis K21.9 [facility] [address] [id number] [address] [place] [address] Jan, [facility] [address] [facility] [id number] [address] [place] [address] Jan, Acquired hypothyroidism E03. 9 [facility] [address] [facility] [id number] [address] [place] [address] Jan, [facility] [address] [facility] [id number] [address] [place] [address] Jan, Acquired hypothyroidism E03. 9 [facility] [address] [facility] [id number] [address] [place] [address] December, Major depressive disorder in full remission, unspecified whether recurrent F32.5 [facility] [address] [facility] [id number] [address] [place] [address] Nov, Acquired hypothyroidism E03. 9 [facility] [address] [facility] [id number] [address] [place] [address] Nov, Pure hypercholesterolemia E7 8.0 ; Peripheral edema R60.9 and Acquired hypothyroidism E03.9 [facility] [address] [id number] [address] [place] [address] Oct, Mild acid reflux K21.9 [facility] [address] [facility] [id number] [address] [place] [address] Sep, Major depressive disorder, s glenny episode, in partial remission F32.4 and Long-term use of high-risk medication Z79.899 [place] [address] [facility] [id number] [address] [place] [address] Aug, Encounter for immunization Z 23 [facility] [address] [facility] [id number] [address] [place] [address] Jul, [place] [address] [facility] [id number] [address] [place] [address] Jun, Medicare annual wellness vis it, initial Z00.00 ; BMI 40.0-44.9, adult Z68.41 and Encounter for immunization Z23 [place] [address] [facility] [id number] [address] [place] [address] May, [place] [address] [facility] [id number] [address] [place] [address] May, Encounter for immunization Z 23 [place] [address] [facility] [id number] [address] [place] [address] May, Major depression in partial remission F32.4 [place] [address] [facility] [id number] [address] [place] [address] Apr, Hearing loss H91.90 ; Encoun ter for immunization Z23 and Encounter for screening mammogram for breast cancer Z12.31 [place] [address] [facility] [id number] [address] [place] [address] Mar, Acquired hypothyroidism E03. 9 [place] [address] [facility] [id number] [address] [place] [address] Jan, Acquired hypothyroidism E03. 9 [place] [address] [facility] [id number] [address] [place] [address] Jan, Acute midline low back pain without sciatica M54.5 [place] [address] [facility] [id number] [address] [place] [address] Jan, Peripheral edema R60.9 [facility] [address] [id number] [address] [place] [address] Jan, Major depression in partial remission F32.4 [facility] [address] [id number] [address] [place] [address] Jan, Localized edema R60.0 [facility] [address] [id number] [address] [place] [address] Nov, Pure hypercholesterolemia E7 8.0 [facility] [address] [id number] [address] [place] [address] Nov, Pure hypercholesterolemia E7 8.0 [facility] [address] [id number] [address] [place] [address] Nov, Peripheral edema R60.9 [facility] [address] [id number] [address] [place] [address] Oct, Major depression in partial remission F32.4 [facility] [address] [id number] [address] [place] [address] Aug, [facility] [address] [id number] [address] [place] [address] Aug, Elevated blood pressure read ing R03.0 [facility] [address] [id number] [address] [place] [address] Aug, [facility] [address] [facility] [id number] [address] [place] [address] Jun, Major depression in partial remission F32.4 [facility] [address] [id number] [address] [place] [address] Apr, Major depressive disorder, r ecurrent episode, mild F33.0 [facility] [address] [id number] [address] [place] [address] Mar, Encounter for well woman exa m with routine gynecological exam Z01.419 and Breast cancer screening Z12.39 [facility] [address] [id number] [address] [place] [address] Jan, Hypothyroidism, unspecified type E03.9 [facility] [address] [id number] [address] [place] [address] Jan, Major depressive disorder, r ecurrent episode, mild F33.0 [facility] [address] [id number] [address] [place] [address] 30 Jan, 2016 Abscess L02.91 [facility] [address] [id number] [address] [place] [address] Jan, Furuncle L02.92 [facility] [address] [id number] [address] [place] [address] 16 Jan, 2016 Major depression in partial remission F32.4 [facility] [address] [id number] [address] [place] [address] 13 Jan, 2016 Major depressive disorder, r ecurrent episode, mild F33.0 [facility] [address] [id number] [address] [place] [address] December, Acute bacterial conjunctivit is of left eye H10.022 [facility] [address] [id number] [address] [place] [address] December, Major depressive disorder, r ecurrent episode, mild F33.0 [facility] [address] [id number] [address] [place] [address] Nov, [facility] [address] [id number] [address] [place] [address] Nov, Major depressive disorder, r ecurrent episode, mild F33.0 [facility] [address] [id number] [address] [place] [address] 18 Nov, 2015 Hearing loss H91.90 [facility] [address] [id number] [address] [place] [address] Oct, Major depression in partial remission F32.4 [facility] [address] [id number] [address] [place] [address] 15 Oct, 2015 Pneumonia J18.9 [facility] [address] [facility] [id number] [address] [place] [address] 10 Oct, 2015 Influenza A J10.1 ; Fever, u nspecified R50.9 ; Conjunctivitis H10.9 and Cough R05 [facility] [address] [facility] [id number] [address] [place] [address] 10 Oct, 2015 Major depressive disorder, r ecurrent episode, severe, 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 [facility] [address] [facility] [id number] [address] [place] [address] Aug, [facility] [place] [id number] [address] [place] [address] Aug, Acquired hypothyroidism E03. 9 and Pure hypercholesterolemia E78.0 [facility] [address] [place] [id number] [address] [place] [address] Aug, Major depressive disorder, r ecurrent episode, severe, 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 [facility] [address] [place] [id number] [address] [place] [address] Jul, [facility] [address] [place] [id number] [address] [place] [address] Jul, Major depressive disorder, r ecurrent episode, severe, with psychotic behavior F33.3 [facility] [address] [place] [id number] [address] [place] [address] Jun, Major depressive disorder, r ecurrent episode, severe, with psychotic behavior F33.3 [facility] [address] [facility] [id number] [address] [place] [address] May, [facility] [address] [place] [id number] [address] [place] [address] May, Major depressive disorder, r ecurrent episode, severe, with psychotic behavior F33.3 [facility] [address] [place] [id number] [address] [place] [address] May, Major depressive disorder, r ecurrent episode, severe, with psychotic behavior F33.3 [facility] [address] [id number] [address] [place] [address] Apr, [facility] [address] [facility] [id number] [address] [place] [address] Apr, Depressive disorder, not els ewhere classified 311 and Unspecified psychosis 298.9 [facility] [address] [facility] [id number] [address] [place] [address] Apr, Depression 311 and Hard of h earing 389.9 [facility] [address] [facility] [id number] [address] [place] [address] Apr, Schizoaffective disorder 295 .70 [facility] [address] [facility] [id number] [address] [place] [address] Apr, Major depressive disorder, r ecurrent episode, severe, specified as with psychotic behavior 296.34 [place] [address] [facility] [id number] [address] [place] [address] Apr, Psychosis 298.9 and Depressi on 311 [facility] [address] [facility] [id number] [address] [place] [address] Apr, Depressive disorder, not els ewhere classified 311 and Unspecified psychosis 298.9 [place] [address] [facility] [id number] [address] [place] [address] Mar, Screening for cervical cance r V76.2 ; Well woman exam with routine gynecological exam V72.31 ; Colon cancer screening V76.51 ; Breast cancer screening V76.10 ; Irritable bowel syndrome 564.1 and Psychosis 298.9 [facility] [address] [facility] [id number] [address] [place] [address] Mar, Psychosis 298.9 [place] [address] [facility] [id number] [address] [place] [address] Mar, Unspecified psychosis 298.9 [facility] [address] [facility] [id number] [address] [place] [address] 14 Nov, 2014 [facility] [address] [id number] [address] [place] [address], [place] [address] Nov, [facility] [address] [id number] [address] [place] [address], [place] [address] Oct, [facility] [address] [id number] [address] [place] [address], [place] [address] Oct, [facility] [address] [id number] [address] [place] [address], [place] [address] Jul, [facility] [address] [id number] [address] [place] [address], [place] [address] Jul, [facility] [address] [id number] [address] [place] [address], [place] [address] May, [facility] [address] [id number] [address] [place] [address], [place] [address] Apr, [facility] [address] [id number] [address] [place] [address], [place] [address] Apr, [facility] [address] [id number] [address] [place] [address], [place] [address] Apr, [facility] [address] [id number] [address] [place] [address], [place] [address] Apr, [facility] [address] [id number] [address] [place] [address], [place] [address] Apr, [facility] [address] [id number] [address] [place] [address], [place] [address] Mar, [facility] [address] [id number] [address] [place] [address], [place] [address] Mar, [facility] [address] [id number] [address] [place] [address], [place] [address] Mar, [facility] [address] [id number] [address] [place] [address], [place] [address] Mar, [facility] [address] [id number] [facility] [place] [address] Mar, [facility] [address] [id number] [facility] [place] [address] Mar, [facility] [address] [id number] [facility] [place] [address] Mar, [facility] [address] [id number] [address] [place] [address], [place] [address] Mar, [facility] [address] [id number] [address] [place] [address], [place] [address] Mar, [facility] [address] [id number] [address] [place] [address], [place] [address] Mar, [facility] [address] [id number] [address] [place] [address], [place] [address] Jan, [facility] [address] [id number] [address] [place] [address], [place] [address] Jan, [facility] [address] [id number] [address] [place] [address], [place] [address] December, [facility] [address] [id number] [address] [place] [address], [place] [address] December, [facility] [address] [id number] [address] [place] [address], [place] [address] Nov, [facility] [address] [id number] [address] [place] [address], [place] [address] Nov, [facility] [address] [id number] [address] [place] [address], [place] [address] Sep, [facility] [address] [id number] [address] [place] [address], [place] [address] Sep, [facility] [address] [id number] [address] [place] [address], [place] [address] Sep, [facility] [address] [id number] [address] [place] [address], [place] [address] Sep, [facility] [address] [id number] [address] [place] [address], [place] [address] Jun, [facility] [address] [id number] [address] [place] [address], [place] [address] Jun, [facility] [address] [id number] [address] [place] [address], [place] [address] Jun, [facility] [address] [id number] [address] [place] [address], [place] [address] Jun, [facility] [address] [id number] [address] [place] [address], [place] [address] May, [facility] [address] [id number] [address] [place] [address], [place] [address] May, [facility] [address] [id number] [address] [place] [address], [place] [address] Apr, [facility] [address] [id number] [address] [place] [address], [place] [address] Mar, [facility] [address] [id number] [address] [place] [address], [place] [address] Mar, [facility] [address] [id number] [address] [place] [address], [place] [address] Mar, [facility] [address] [id number] [address] [place] [address], [place] [address] Mar, [facility] [address] [id number] [address] [place] [address], [place] [address] Mar, [facility] [address] [id number] [address] [place] [address], [place] [address] Jan, [facility] [address] [id number] [address] [place] [address], [place] [address] Jan, [facility] [address] [id number] [address] [place] [address], [place] [address] Jan, [facility] [address] [id number] [address] [place] [address], [place] [address] December, [facility] [address] [id number] [address] [place] [address], [place] [address] Oct, [facility] [address] [id number] [address] [place] [address], [place] [address] Oct, [facility] [address] [id number] [address] [place] [address], [place] [address] Oct, [facility] [address] [id number] [address] [place] [address], [place] [address] Oct, [facility] [address] [id number] [address] [place] [address], [place] [address] Aug, [facility] [address] [id number] [address] [place] [address], [place] [address] 16 Jun, 2012 [facility] [address] [id number] [address] [place] [address], [place] [address] 16 Jun, 2012 [facility] [address] [id number] [address] [place] [address], [place] [address] Jun, [facility] [address] [id number] [address] [place] [address], [place] [address] 14 Jun, 2012 [facility] [address] [id number] [address] [place] [address], [place] [address] 05 May, 2012 [facility] [address] [id number] [address] [place] [address], [place] [address] Apr, [facility] [address] [id number] [address] [place] [address], [place] [id number] Mar, [facility] [address] [id number] [address] [place] [address], [place] [id number] Jan, [facility] [address] [id number] [address] [place] [address], [place] [address] Jan, [facility] [address] [id number] [address] [place] [address], [place] [address] December, [facility] [address] [id number] [address] [place] [address], [place] [address] December, [facility] [address] [id number] [address] [place] [address], [place] [address] December, [facility] [address] [id number] [address] [place] [address], [place] [address] December, [facility] [address] [id number] [address] [place] [address], [place] [address] Nov, [facility] [address] [id number] [address] [place] [address], [place] [address] Oct, [facility] [address] [id number] [address] [place] [address], [place] [address] Sep, [facility] [address] [id number] [address] [place] [address], [place] [id number] Sep, [facility] [address] [id number] [address] [place] [address], [place] [address] Sep, [facility] [address] [id number] [address] [place] [address], [place] [address] Sep, [facility] [address] [id number] [address] [place] [address], [place] [address] Aug, [facility] [address] [id number] [address] [place] [address], [place] [id number] Jun, [facility] [address] [id number] [address] [place] [address], [place] [address] May, [facility] [address] [id number] [address] [place] [address], [place] [address] Mar, [facility] [address] [id number] [address] [place] [address], [place] [address] Jun, [facility] [address] [id number] [address] [place] [address], [place] [id number] May, [facility] [address] [id number] [address] [place] [address], [place] [address] May, IMMUNIZATIONS No Known Immunizations SOCIAL HISTORY Never Assessed REASON FOR VISIT Order Request PLAN OF CARE VITAL SIGNS MEDICATIONS Unknown [...]
--- OUTSIDE RECORDS SUMMARY | 2020-02-21 11:49 | XMS REPORT ---
Author Author Tarik POTTS Organization 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 56187874 Problem Hearing loss of both ears H91.93 Acti ve 81306258 Problem Acquired hypothyroidism E03.9 Active 252662488 Problem Pure hypercholesterolemia E78.0 Acti ve 116964324 Problem Major depressive disorder, recurrent episode, mild F33.0 Active 729446479 Problem Other chronic pain G89.29 Active 8 5043385 Problem Gastroesophageal reflux disease without esophagitis K21.9 Active 752072302 Problem Hearing loss H91.90 Active 4571664 1 Problem Edema, unspecified type R60.9 Active 603000516 Problem Mild acid reflux K21.9 Active 235 601574 Problem Medicare welcome exam Z00.00 Active 474395769 ALLERGIES Substance Reaction Event Type Date Status Penicillins Unknown Non Drug Allergy Apr, Active ENCOUNTERS Encounter Location Date Diagnosis [facility] [address] [facility]NOTE [facility]] [id number] [address] [place] [address] Jun, [facility] [address] [facility]NOTE [facility] [id number] [address] [place] [address] Apr, [facility] [address] [facility]NOTE 3] [id number] [address] [place] [address] Apr, Encounter for breast cancer screening other than mammogram Z12.39 ; Encounter for immunization Z23 and Colon cancer screening Z12.11 [place] [address] [facility]NOTE 3] [id number] [address] [place] [address] Mar, Major depression in partial remission F32.4 and BMI 40.0-44.9, adult Z68.41 [facility] [address] [facility]NOTE [facility]] [id number] [address] [place] [address] Mar, [facility] [address] [place] [id number] [address] [place] [address] Mar, Acquired hypothyroidism E03. 9 [facility] [address] [facility]NOTE 3] [id number] [address] [place] [address] Mar, Pain in left knee M25.562 ; Other chronic pain G89.29 and Gastroesophageal reflux disease without esophagitis K21.9 [facility] [address] [place] [id number] [address] [place] [address] Jan, [facility] [address] [place] [id number] [place] [address] Jan, Acquired hypothyroidism E03. 9 [facility] [address] [facility]NOTE 3] [id number] [address] [place] [address] Jan, [facility] [address] [place] [id number] [place] [address] Jan, Acquired hypothyroidism E03. [address] [facility] [address] [place] [id number] [place] [address] December, Major depressive disorder in full remission, unspecified whether recurrent F32.5 [facility] [address] [place] [id number] [address] [place] [address] Nov, Acquired hypothyroidism E03. [address] [facility] [address] [place] [id number] [address] [place] [address] Nov, Pure hypercholesterolemia E7 8.0 ; Peripheral edema R60.9 and Acquired hyp[address]roidism E03.9 [facility] [address] [facility]NOTE 3] [id number] [address] [place] [address] Oct, Mild acid reflux K21.9 [facility] [address] [facility]NOTE 3] [id number] [address] [place] [address] 08 Sep, 2017 Major depressive disorder, s glenny episode, in partial remission F32.4 and Long-term use of high-risk medication Z79.899 [place] [address] [facility]NOTE 3] [id number] [address] [place] [address] Aug, Encounter for immunization Z 23 [place] [address] [facility]NOTE 3] [id number] [address] [place] [address] Jul, [place] [address] [facility]NOTE 3] [id number] [address] [place] [address] Jun, Medicare annual wellness vis it, initial Z00.00 ; BMI 40.0-44.9, adult Z68.41 and Encounter for immunization Z23 [place] [address] [facility]NOTE 3] [id number] [address] [place] [address] May, [place] [address] [facility]NOTE 3] [id number] [address] [place] [address] May, Encounter for immunization Z 23 [place] [address] [facility]NOTE 3] [id number] [address] [place] [address] May, Major depression in partial remission F32.4 [place] [address] [facility]NOTE 3] [id number] [address] [place] [address] Apr, Hearing loss H91.90 ; Encoun ter for immunization Z23 and Encounter for screening mammogram for breast cancer Z12.31 [place] [address] [facility]NOTE 3] [id number] [address] [place] [address] Mar, Acquired hypothyroidism E03. 9 [place] [address] [facility]NOTE 3] [id number] [address] [place] [address] Jan, Acquired hypothyroidism E03. 9 [place] [address] [facility]NOTE 3] [id number] [address] [place] [address] Jan, Acute midline low back pain without sciatica M54.5 [place] [address] [facility]NOTE 3] [id number] [address] [place] [address] Jan, Peripheral edema R60.9 [facility] [address] [id number] [address] [place] [address] Jan, Major depression in partial remission F32.4 [facility] [address] [id number] [address] [place] [address] Jan, Localized edema R60.0 [facility] [address] [id number] [address] [place] [address] Nov, Pure hypercholesterolemia E7 8.0 [facility] [address] [id number] [address] [place] [address] Nov, Pure hypercholesterolemia E7 8.0 [facility] [address] [id number] [address] [place] [address] Nov, Peripheral edema R60.9 [facility] [address] [id number] [address] [place] [address] Oct, Major depression in partial remission F32.4 [facility] [address] [id number] [address] [place] [address] Aug, [facility] [address] [id number] [address] [place] [address] Aug, Elevated blood pressure read ing R03.0 [facility] [address] [id number] [address] [place] [address] Aug, [facility] [address] [id number] [address] [place] [address] Jun, Major depression in partial remission F32.4 [facility] [address] [id number] [address] [place] [address] Apr, Major depressive disorder, r ecurrent episode, mild F33.0 [facility] [address] [id number] [address] [place] [address] Mar, Encounter for well woman exa m with routine gynecological exam Z01.419 and Breast cancer screening Z12.39 [facility] [address] [id number] [address] [place] [address] Jan, Hypothyroidism, unspecified type E03.9 [facility] [address] [id number] [address] [place] [address] Jan, Major depressive disorder, r ecurrent episode, mild F33.0 [facility] [address] [id number] [address] [place] [address] 30 Jan, 2016 Abscess L02.91 [place] [address] [id number] [address] [place] [address] 22 Jan, 2016 Furuncle L02.92 [place] [address] [facility]NOTE 3] [id number] [address] [place] [address] 16 Jan, 2016 Major depression in partial remission F32.4 [place] [address] [facility]NOTE 3] [id number] [address] [place] [address] 13 Jan, 2016 Major depressive disorder, r ecurrent episode, mild F33.0 [facility] [address] [id number] [address] [place] [address] December, Acute bacterial conjunctivit is of left eye H10.022 [place] [address] [facility]NOTE 3] [id number] [address] [place] [address] December, Major depressive disorder, r ecurrent episode, mild F33.0 [facility] [address] [facility]NOTE 3] [id number] [address] [place] [address] Nov, [facility] [address] [id number] [address] [place] [address] Nov, Major depressive disorder, r ecurrent episode, mild F33.0 [facility] [address] [facility]NOTE 3] [id number] [address] [place] [address] 18 Nov, [address] [facility] [address] [facility]NOTE 3] [id number] [address] [place] [address] Oct, Major depression in partial remission F32.4 [facility] [address] [place] [id number] [address] [place] [address] 15 Oct, 2015 Pneumonia J18.9 [facility] [address] [place] [id number] [address] [place] [address] 10 Oct, 2015 Influenza A J10.1 ; Fever, u nspecified R50.9 ; Conjunctivitis H10.[address] [facility] [address] [place] [id number] [address] [place] [address] 10 Oct, 2015 Major depressive disorder, r ecurrent episode, severe, with psychotic behavior F33.3 [place] [address] [place] [id number] [address] [place] [address] Aug, [place] [address] [address] Aug, Acquired hypothyroidism E03. 9 and Pure hypercholesterolemia E78.0 [facility] [address] [phone] Aug, Major depressive disorder, r ecurrent episode, severe, with psychotic behavior F33.3 [place] [address] [place] [id number] [address] [place] [address] Jul, [place] [address] [address] Jul, Major depressive disorder, r ecurrent episode, severe, with psychotic behavior F33.3 [place] [address] [place] [id number] [address] [place] [phone] Jun, Major depressive disorder, r ecurrent episode, severe, with psychotic behavior F33.3 [place] [address] [place] [id number] [address] [place] [address] May, [place] [address] [place] [id number] [place] [address] May, Major depressive disorder, r ecurrent episode, severe, with psychotic behavior F33.3 [place] [address] [place] [id number] [address] [place] [address] May, Major depressive disorder, r ecurrent episode, severe, with psychotic behavior F33.3 [facility] [address] [facility] 3] [id number] [address] [place] [address] Apr, [facility] [address] [facility]NOTE 3] [id number] [address] [place] [address] Apr, Depressive disorder, not els ewhere classified 311 and Unspecified psychosis 298.9 [facility] [address] [facility]NOTE 3] [id number] [address] [place] [address] Apr, Depression 311 and Hard of h earing 389.9 [facility] [address] [facility]NOTE 3] [id number] [address] [place] [address] Apr, Schizoaffective disorder 295 .70 [place] [address] [place] [id number] [address] [place] [address] Apr, Major depressive disorder, r ecurrent episode, severe, specified as with psychotic behavior 296.34 [facility] [address] [place] [id number] [address] [place] [address] Apr, Psychosis 298.9 and Depressi on 311 [place] [address] [facility]NOTE 3] [id number] [address] [place] [address] Apr, Depressive disorder, not els ewhere classified 311 and Unspecified psychosis 298.9 [place] [address] [place] [id number] [address] [place] [address] Mar, Screening for cervical cance r V76.2 ; Well woman exam with routine gynecological exam V72.31 ; Colon cancer screening V76.51 ; Breast cancer screening V76.10 ; Irritable bowel syndrome 564.1 and Psychosis 298.9 [place] [address] [facility] 3] [id number] [address] [place] [address] Mar, Psychosis 298.9 [facility] [address] [place] [id number] [address] [place] [phone] Mar, Unspecified psychosis 298.9 [facility] [place] [facility] [address] [id number] [address] [place] [address], [place] [address] 14 Nov, 2014 [facility] [address] [id number] [address] [place] [address], [place] [address] 13 Nov, 2014 [facility] [address] [id number] [address] [place] [address], [place] [address] Oct, [facility] [address] [id number] [address] [place] [address], [place] [address] Oct, [facility] [address] [id number] [address] [place] [address], [place] [address] Jul, [facility] [address] [id number] [address] [place] [address], [place] [address] Jul, [facility] [address] [id number] [address] [place] [address], [place] [address] May, [facility] [address] [id number] [address] [place] [address], [place] [address] Apr, [facility] [address] [id number] [address] [place] [address], [place] [address] Apr, [facility] [address] [id number] [address] [place] [address], [place] [address] Apr, [facility] [address] [id number] [address] [place] [address], [place] [address] Apr, [facility] [address] [id number] [address] [place] [address], [place] [address] Apr, [facility] [address] [id number] [address] [place] [address], [place] [address] Mar, [facility] [place] [facility] [address] [id number] [address] [place] [address], [place] [address] Mar, [facility] [address] [id number] [address] [place] [address], [place] [address] Mar, [facility] [place] [facility] [address] [id number] [address] [place] [address], [place] [address] Mar, [facility] [address] [id number] [facility] [address] Mar, [facility] [place] [facility] [address] [id number] [facility] [address] Mar, [facility] [address] [id number] [facility] [address] Mar, [facility] [place] [facility] [address] [id number] [address] [place] [address], [place] [address] Mar, [facility] [address] [id number] [address] [place] [address], [place] [address] Mar, [facility] [address] [id number] [address] [place] [address], [place] [address] Mar, [facility] [address] [id number] [address] [place] [address], [place] [address] Jan, [facility] [place] [facility] [address] [id number] [address] [place] [address], [place] [address] Jan, [facility] [address] [id number] [address] [place] [address], [place] [address] December, [facility] [place] [facility] [address] [id number] [address] [place] [address], [place] [address] December, [facility] [place] [facility] [address] [id number] [address] [place] [address], [place] [address] Nov, [facility] [place] [facility] [address] [id number] [address] [place] [address], [place] [address] Nov, [facility] [place] [facility] [address] [id number] [address] [place] [address], [place] [address] Sep, [facility] [place] [facility] [address] [id number] [address] [place] [address], [place] [address] Sep, [facility] [place] [facility] [address] [id number] [address] [place] [address], [place] [address] Sep, [facility] [place] [facility] [address] [id number] [address] [place] [address] Sep, [facility] [address] [id number] [address] [place] [address], [place] [address] Jun, [facility] [address] [id number] [address] [place] [address], [place] [address] Jun, [facility] [address] [id number] [address] [place] [address], [place] [address] Jun, [facility] [address] [id number] [address] [place] [address], [place] [address] Jun, [facility] [address] [id number] [address] [place] [address], [place] [address] May, [facility] [address] [id number] [address] [place] [address], [place] [address] May, [facility] [address] [id number] [address] [place] [address], [place] [address] Apr, [facility] [address] [id number] [address] [place] [address], [place] [address] Mar, [facility] [address] [id number] [address] [place] [address], [place] [address] Mar, [facility] [address] [id number] [address] [place] [address], [place] [address] Mar, [facility] [address] [id number] [address] [place] [address], [place] [address] Mar, [facility] [address] [id number] [address] [place] [address], [place] [address] Mar, [facility] [address] [id number] [address] [place] [address], [place] [address] Jan, [facility] [address] [id number] [address] [place] [address], [place] [address] Jan, [facility] [address] [id number] [address] [place] [address], [place] [address] Jan, [facility] [address] [id number] [address] [place] [address], [place] [address] December, [facility] [address] [id number] [address] [place] [address], [place] [address] Oct, [facility] [address] [id number] [address] [place] [address], [place] [address] Oct, [facility] [address] [id number] [address] [place] [address], [place] [address] Oct, [facility] [address] [id number] [address] [place] [address], [place] [address] Oct, [facility] [address] [id number] [address] [place] [address], [place] [address] Aug, [facility] [address] [id number] [address] [place] [address], [place] [address] 16 Jun, 2012 [facility] [address] [id number] [address] [place] [address], [place] [address] 16 Jun, 2012 [facility] [address] [id number] [address] [place] [address], [place] [address] Jun, [facility] [address] [id number] [address] [place] [address], [place] [address] 14 Jun, 2012 [facility] [address] [id number] [address] [place] [address], [place] [address] 05 May, 2012 [facility] [address] [id number] [address] [place] [address], [place] [address] Apr, [facility] [address] [id number] [address] [place] [address], [place] [address] Mar, [facility] [address] [id number] [address] [place] [address], [place] [address] Jan, [facility] [address] [id number] [address] [place] [address], [place] [address] Jan, [facility] [address] [id number] [address] [place] [address], [place] [address] December, [facility] [address] [id number] [address] [place] [address], [place] [address] December, [facility] [address] [id number] [address] [place] [address], [place] [address] December, [facility] [address] [id number] [address] [place] [address], [place] [address] December, [facility] [address] [id number] [address] [place] [address], [place] [address] Nov, [facility] [address] [id number] [address] [place] [address], [place] [address] Oct, [facility] [address] [id number] [address] [place] [address], [place] [address] Sep, [facility] [address] [id number] [address] [place] [address], [place] [address] Sep, [facility] [address] [id number] [address] [place] [address], [place] [address] Sep, [facility] [address] [id number] [address] [place] [address], [place] [address] Sep, [facility] [address] [id number] [address] [place] [address], [place] [address] Aug, [facility] [address] [id number] [address] [place] [address], [place] [address] Jun, [facility] [address] [id number] [address] [place] [address], [place] [address] May, [facility] [address] [id number] [address] [place] [address], [place] [address] Mar, [facility] [address] [id number] [address] [place] [address], [place] [address] Jun, [facility] [address] [id number] [address] [place] [address], [place] [address] May, [facility] [address] [facility]NOTE 3] [id number] [address] [place] [address] May, IMMUNIZATIONS Vaccine Route Administration Date Status FLULAVAL QUAD 0.5ML (6 MO & UP) 2018 IM Intramuscular Apr 26, 018 Administered PPSV23 (PNEUMOVAX) IM Intramuscular Apr 26, 2018 Administered SOCIAL HISTORY Never Assessed REASON FOR VISIT Annual physical (female) -pt would like flu shot --ARIE Overton PLAN OF CARE Activity Details Follow Up 6 Months Reason:BP Pending Test COLOGUARD (OUTSIDE ORDER) VITAL SIGNS Height 65 in 2018-04-26 Weight 234.3 lbs 2018-04-26 Temperature 98.0 degrees Fahrenheit 2018-04-26 Heart Rate 72 bpm 2018-04-26 Respiratory Rate 18 2018-04-26 BMI 38.99 kg/m2 2018-04-26 Blood pressure systolic 132 mmHg 2018-04-26 Blood pressure diastolic 80 mmHg 2018-04-26 MEDICATIONS Medication Instructions Dosage Frequency Start Date End Date Duration S tatus Lovastatin 20 MG TAKE ONE TABLET BY MOUTH ONCE DAILY 90 Active Lasix 40 mg Orally twice a day in AM and noon 1 tablet Jan, 017 5 days Active Omeprazole 20 mg Orally Once a day 1 capsule 24h Mar, 90 days Active Bentyl 10 MG Orally Four times a day befo re meals and at bedtime for urgency with bowel movements 1 capsule 30 Acti ve Fluoxetine HCl 10 MG TAKE THREE CAPSULES BY MOUTH ONCE DAILY IN THE MORNING Active Levothyroxine Sodium 112 MCG Orally Once a day 1 tablet on an empty stomach in the morning 24h Jan, 90 Active Aripiprazole 5 MG Orally at bedtime 1 tablet Active Trazodone HCl 50 MG TAKE ONE TABLET BY MOUTH ONC E DAILY AT BEDTIME FOR SLEEP Active RESULTS Name Result Date Reference Range Mammogram, Bilateral Screening 2018-04-30 PROCEDURES Procedure Date Ordered Result Body Site [facility] VISIT ESTABLISHED PATIENT Apr 26, 2018 IMMUNIZATION ADMIN, EACH ADD (please include units) Apr 26 8 ADMN PNEUMCOC VAC NO FEE SCHED DAY Apr 26, 2018 PPSV23 (PNEUMOVAX) Apr 26, 2018 SINGLE IMMUNIZATION ADMIN Apr 26, 2018 FLULAVAL QUAD 0.5ML (6 MO AND UP) 2017Apr 26, 2018 INSTRUCTIONS MEDICATIONS ADMINISTERED No Known Medications MEDICAL (GENERAL) HISTORY Type Description Date Medical History depression Medical History hypothryroidism Medical History hyperlipidemia Medical History trauma: Stroke - with L side faci al drooping Surgical History hysterectomy Surgical History cholecystectomy Surgical History gall bladder removal Hospitalization History surgeries Hospitalization History stroke
--- OUTSIDE RECORDS SUMMARY | 2020-02-21 11:49 | XMS REPORT ---
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 61612454 Problem Edema, unspecified type R60.9 Active 522675199 Problem Calcaneal spur, unspecified laterality M77.30 Active 45219424 Problem Major depression 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 Active 72880397 Problem Other chronic pain G89.29 Active 8 1337782 Problem Medicare welcome exam Z00.00 Active 803842692 Problem Hearing loss H91.90 Active 4720397 1 Problem Gastroesophageal reflux disease without esophagitis K21.9 Active 726360192 Problem Mild acid reflux K21.9 Active 235 689111 Problem Acquired hypothyroidism E03.9 Active 570187330 Problem Pure hypercholesterolemia E78.0 Acti ve 312124537 Problem Major depressive disorder, recurrent episode, mild F33.0 Active 943919077 Problem Hearing loss of both ears H91.93 Acti ve 80975843 Problem Major depression in partial remission F32.4 Active 05767270 ALLERGIES Substance Reaction Event Type Date Status Penicillins Unknown Non Drug Allergy Jun, Active ENCOUNTERS Encounter Location Date Diagnosis [facility] [address] [facility] [id number] [address] [place] [address] Oct, [facility] [address] [facility] [id number] [address] [place] [address] Jun, Major depression in remissio n F32.5 [facility] [address] [facility] [id number] [address] [place] [address] Apr, [facility] [address] [facility] [id number] [address] [place] [address] Apr, Encounter for breast cancer screening other than mammogram Z12.39 ; Encounter for immunization Z23 and Colon cancer screening Z12.11 [facility] [place] [address] [place] [id number] [address] [place] [address] 30 Mar, 2018 Major depression in partial remission F32.4 and BMI 40.0-44.9, adult Z68.41 [place] [address] [place] [id number] [address] [place] [address] Mar, [place] [address] [place] [id number] [address] [place] [address] Mar, Acquired hypothyroidism E03. 9 [place] [address] [place] [id number] [place] [address] Mar, Pain in left knee M25.562 ; Other chronic pain G89.29 and Gastroesophageal reflux disease without esophagitis K21.9 [place] [address] [place] [id number] [address] [place] [address] Jan, [place] [address] [place] [id number] [address] [place] [address] Jan, Acquired hypothyroidism E03. 9 [place] [address] [place] [id number] [address] [place] [address] Jan, [place] [address] [place] [id number] [address] [place] [address] Jan, Acquired hypothyroidism E03. 9 [place] [address] [place] [id number] [address] [place] [address] December, Major depressive disorder in full remission, unspecified whether recurrent F32.5 [place] [address] [place] [id number] [address] [place] [address] Nov, Acquired hypothyroidism E03. 9 [place] [address] [place] [id number] [address] [place] [address] Nov, Pure hypercholesterolemia E7 8.0 ; Peripheral edema R60.9 and Acquired hypothyroidism E03.9 [facility] [address] [facility] [id number] [address] [place] [address] Oct, Mild acid reflux K21.9 [facility] [address] [facility] [id number] [address] [place] [address] Sep, Major depressive disorder, s glenny episode, in partial remission F32.4 and Long-term use of high-risk medication Z79.899 [place] [address] [facility] [id number] [address] [place] [address] Aug, Encounter for immunization Z 23 [place] [address] [facility] [id number] [address] [place] [address] Jul, [place] [address] [place] [id number] [address] [place] [address] Jun, Medicare annual wellness vis it, initial Z00.00 ; BMI 40.0-44.9, adult Z68.41 and Encounter for immunization Z23 [place] [address] [facility] [id number] [address] [place] [address] May, [place] [address] [facility] [id number] [address] [place] [address] May, Encounter for immunization Z 23 [place] [address] [facility] [id number] [address] [place] [address] May, Major depression in partial remission F32.4 [place] [address] [facility] [id number] [address] [place] [address] Apr, Hearing loss H91.90 ; Encoun ter for immunization Z23 and Encounter for screening mammogram for breast cancer Z12.31 [place] [address] [facility] [id number] [address] [place] [address] Mar, Acquired hypothyroidism E03. 9 [place] [address] [facility] [id number] [address] [place] [address] Jan, Acquired hypothyroidism E03. 9 [place] [address] [id number] [address] [place] [address] Jan, Acute midline low back pain without sciatica M54.5 [facility] [address] [id number] [address] [place] [address] Jan, Peripheral edema R60.9 [facility] [address] [id number] [address] [place] [address] Jan, Major depression in partial remission F32.4 [facility] [address] [id number] [address] [place] [address] Jan, Localized edema R60.0 [facility] [address] [id number] [address] [place] [address] Nov, Pure hypercholesterolemia E7 8.0 [facility] [address] [id number] [address] [place] [address] Nov, Pure hypercholesterolemia E7 8.0 [facility] [address] [id number] [address] [place] [address] Nov, Peripheral edema R60.9 [facility] [address] [id number] [address] [place] [address] Oct, Major depression in partial remission F32.4 [facility] [address] [id number] [address] [place] [address] Aug, [facility] [address] [id number] [address] [place] [address] Aug, Elevated blood pressure read ing R03.0 [facility] [address] [id number] [address] [place] [address] Aug, [facility] [address] [id number] [address] [place] [address] Jun, Major depression in partial remission F32.4 [facility] [address] [id number] [address] [place] [address] Apr, Major depressive disorder, r ecurrent episode, mild F33.0 [facility] [address] [facility] [id number] [address] [place] [address] Mar, Encounter for well woman reta rios with routine gynecological exam Z01.419 and Breast cancer screening Z12.39 [facility] [address] [facility] [id number] [address] [place] [address] 28 Feb, 2016 Hypothyroidism, unspecified type E03.9 [facility] [address] [facility] [id number] [address] [place] [address] 12 Feb, 2016 Major depressive disorder, r ecurrent episode, mild F33.0 [facility] [address] [facility] [id number] [address] [place] [address] 30 Jan, 2016 Abscess L02.91 [place] [address] [facility] [id number] [address] [place] [address] Jan, Furuncle L02.92 [place] [address] [facility] [id number] [address] [place] [address] 16 Jan, 2016 Major depression in partial remission F32.4 [facility] [address] [facility] [id number] [address] [place] [address] 13 Jan, 2016 Major depressive disorder, r ecurrent episode, mild F33.0 [facility] [address] [facility] [id number] [address] [place] [address] December, Acute bacterial conjunctivit is of left eye H10.022 [facility] [address] [facility] [id number] [address] [place] [address] December, Major depressive disorder, r ecurrent episode, mild F33.0 [facility] [address] [id number] [address] [place] [address] Nov, [place] [address] [facility] [id number] [address] [place] [address] Nov, Major depressive disorder, r ecurrent episode, mild F33.0 [facility] [address] [facility] [id number] [address] [place] [address] 18 Nov, 2015 Hearing loss H91.90 [facility] [address] [facility] [id number] [address] [place] [address] 17 Oct, 2015 Major depression in partial remission F32.4 [facility] [address] [facility] [id number] [address] [place] [address] 15 Oct, 2015 Pneumonia J18.9 [facility] [address] [facility] [id number] [address] [place] [address] 10 Oct, 2015 Influenza A J10.1 ; Fever, u nspecified R50.9 ; Conjunctivitis H10.9 and Cough R05 [facility] [address] [place] [id number] [address] [place] [address] 10 Oct, 2015 Major depressive disorder, r ecurrent episode, severe, with psychotic behavior F33.3 [place] [address] [place] [id number] [address] [place] [address] Aug, [place] [address] [place] [id number] [place] [address] Aug, Acquired hypothyroidism E03. 9 and Pure hypercholesterolemia E78.0 [place] [address] [place] [id number] [address] [place] [address] Aug, Major depressive disorder, r ecurrent episode, severe, with psychotic behavior F33.3 [place] [address] [place] [id number] [address] [place] [address] Jul, [place] [address] [place] [id number] [address] [place] [address] Jul, Major depressive disorder, r ecurrent episode, severe, with psychotic behavior F33.3 [place] [address] [place] [id number] [address] [place] [address] Jun, Major depressive disorder, r ecurrent episode, severe, with psychotic behavior F33.3 [place] [address] [place] [id number] [address] [place] [address] May, [place] [address] [place] [id number] [place] [address] [place] [address] May, Major depressive disorder, r ecurrent episode, severe, with psychotic behavior F33.3 [place] [address] [place] [id number] [place] [address] May, Major depressive disorder, r ecurrent episode, severe, with psychotic behavior F33.3 [place] [address] [place] [id number] [address] [place] [address] Apr, [place] [address] [place] [id number] [place] [address] Apr, Depressive disorder, not els ewhere classified 311 and Unspecified psychosis 298.9 [place] [address] [place] [id number] [place] [address] Apr, Depression 311 and Hard of h earing 389.9 [place] [address] [address] Apr, Schizoaffective disorder 295 .70 [place] [address] [place] [id number] [address] [place] [address] Apr, Major depressive disorder, r ecurrent episode, severe, specified as with psychotic behavior 296.34 [place] [address] [place] [id number] [address] [place] [address] Apr, Psychosis 298.9 and Depressi on 311 [place] [address] [place] [id number] [address] [place] [address] Apr, Depressive disorder, not els ewhere classified 311 and Unspecified psychosis 298.9 [place] [address] [place] [id number] [address] [place] [address] Mar, Screening for cervical cance r V76.2 ; Well woman exam with routine gynecological exam V72.31 ; Colon cancer screening V76.51 ; Breast cancer screening V76.10 ; Irritable bowel syndrome 564.1 and Psychosis 298.9 [place] [address] [place] [id number] [address] [place] [address] Mar, Psychosis 298.9 [facility] [address] [id number] [address] [place] [address] Mar, Unspecified psychosis 298.9 [facility] [address] [id number] [address] [place] [address] 14 Nov, 2014 [facility] [address] [id number] [address] [place] [address], [place] [address] Nov, [facility] [address] [id number] [address] [place] [address] Oct, [facility] [address] [id number] [address] [place] [address], [place] [address] Oct, [facility] [address] [id number] [address] [place] [address] Jul, [facility] [address] [id number] [address] [place] [address] Jul, [facility] [address] [id number] [address] [place] [address] May, [facility] [address] [id number] [address] [place] [address] Apr, [facility] [address] [id number] [address] [place] [address] Apr, [facility] [address] [id number] [address] [place] [address] Apr, [facility] [address] [id number] [address] [place] [address] 05 Apr, 2014 [facility] [address] [id number] [address] [place] [address] Apr, [facility] [address] [id number] [address] [place] [address] Mar, [facility] [address] [id number] [address] [place] [address], [place] [address] Mar, [facility] [address] [id number] [facility] [place] [address] Mar, [facility] [address] [id number] [facility] [address] Mar, [facility] [address] [id number] [facility] [place] [address] Mar, [facility] [address] [id number] [facility] [place] [address] Mar, [facility] [address] [id number] [facility] [place] [address] Mar, [facility] [address] [id number] [address] [place] [address], [place] [address] Mar, [facility] [address] [id number] [address] [place] [address], [place] [address] Mar, [facility] [address] [id number] [address] [place] [address], [place] [address] Mar, [facility] [address] [id number] [address] [place] [address], [place] [address] Jan, [facility] [address] [id number] [address] [place] [address], [place] [address] Jan, [facility] [address] [id number] [address] [place] [address], [place] [address] December, [facility] [address] [id number] [address] [place] [address], [place] [address] December, [facility] [address] [id number] [address] [place] [address], [place] [address] Nov, [facility] [address] [id number] [address] [place] [address], [place] [address] Nov, [facility] [address] [id number] [address] [place] [address], [place] [address] Sep, [facility] [address] [id number] [address] [place] [address], [place] [address] Sep, [facility] [address] [id number] [address] [place] [address], [place] [address] Sep, [facility] [address] [id number] [address] [place] [address], [place] [address] Sep, [facility] [address] [id number] [address] [place] [address], [place] [address] Jun, [facility] [address] [id number] [address] [place] [address], [place] [address] Jun, [facility] [address] [id number] [address] [place] [address], [place] [address] Jun, [facility] [address] [id number] [address] [place] [address], [place] [address] Jun, [facility] [address] [id number] [address] [place] [address], [place] [address] May, [facility] [address] [id number] [address] [place] [address], [place] [address] May, [facility] [address] [id number] [address] [place] [address], [place] [address] Apr, [facility] [address] [id number] [address] [place] [address], [place] [address] Mar, [facility] [address] [id number] [address] [place] [address], [place] [address] Mar, [facility] [address] [id number] [address] [place] [address], [place] [address] Mar, [facility] [address] [id number] [address] [place] [address], [place] [address] Mar, [facility] [address] [id number] [address] [place] [address], [place] [address] Mar, [facility] [address] [id number] [address] [place] [address], [place] [address] Jan, [facility] [address] [id number] [address] [place] [address], [place] [address] 24 Jan, 2013 [facility] [address] [id number] [address] [place] [address], [place] [address] Jan, [facility] [address] [id number] [address] [place] [address], [place] [address] December, [facility] [address] [id number] [address] [place] [address], [place] [address] Oct, [facility] [address] [id number] [address] [place] [address], [place] [address] Oct, [facility] [address] [id number] [address] [place] [address], [place] [address] Oct, [facility] [address] [id number] [address] [place] [address], [place] [address] Oct, [facility] [address] [id number] [address] [place] [address], [place] [address] Aug, [facility] [address] [id number] [address] [place] [address], [place] [address] 16 Jun, 2012 [facility] [address] [id number] [address] [place] [address], [place] [address] 16 Jun, 2012 [facility] [address] [id number] [address] [place] [address], [place] [address] 14 Jun, 2012 [facility] [address] [id number] [address] [place] [address], [place] [address] 14 Jun, 2012 [facility] [address] [id number] [address] [place] [address], [place] [address] 05 May, 2012 [facility] [address] [id number] [address] [place] [address], [place] [address] 10 Apr, 2012 [facility] [address] [id number] [address] [place] [address], [place] [address] Mar, [facility] [address] [id number] [address] [place] [address], [place] [address] Jan, [facility] [address] [id number] [address] [place] [address], [place] [address] Jan, [facility] [address] [id number] [address] [place] [address], [place] [address] December, [facility] [address] [id number] [address] [place] [address], [place] [address] December, [facility] [address] [id number] [address] [place] [address], [place] [address] December, [facility] [address] [id number] [address] [place] [address], [place] [address] December, [facility] [address] [id number] [address] [place] [address], [place] [address] Nov, [facility] [address] [id number] [address] [place] [address], [place] [address] Oct, [facility] [address] [id number] [address] [place] [address], [place] [address] Sep, [facility] [address] [id number] [address] [place] [address], [place] [address] Sep, [facility] [address] [id number] [address] [place] [address], [place] [address] Sep, [facility] [address] [id number] [address] [place] [address], [place] [address] Sep, [facility] [address] [id number] [address] [place] [address], [place] [address] Aug, [facility] [address] [id number] [address] [place] [address], [place] [address] Jun, [facility] [address] [id number] [address] [place] [address], [place] [address] May, [facility] [address] [id number] [address] [place] [address], [place] [address] Mar, [facility] [address] [id number] [address] [place] [id number] Jun, [facility] [address] [facility] [id number] [address] [place] [id number] May, [facility] [address] [facility] [id number] [address] [place] [id number] May, IMMUNIZATIONS No Known Immunizations SOCIAL HISTORY Never Assessed REASON FOR VISIT f/u-JjournotRN, Depression / history of psychosis PLAN OF CARE Activity Details Follow Up 4 Months Reason: VITAL SIGNS Height 65 in 2018-07-01 Weight 236.6 lbs 2018-07-01 Heart Rate 60 bpm 2018-07-01 Respiratory Rate 20 2018-07-01 BMI 39.37 kg/m2 2018-07-01 Blood pressure systolic 138 mmHg 2018-07-01 Blood pressure diastolic 68 mmHg 2018-07-01 MEDICATIONS Medication Instructions Dosage Frequency Start Date End Date Duration S tatus Trazodone HCl 50 MG TAKE ONE TABLET BY MOUTH ONC E DAILY AT BEDTIME FOR SLEEP Active Levothyroxine Sodium 112 MCG Orally Once a day 1 tablet on an empty stomach in the morning 24h Jan, 90 Active Bentyl 10 MG Orally Four times a day befo re meals and at bedtime for urgency with bowel movements 1 capsule 30 Acti ve Lasix 40 mg Orally twice a day in AM and noon 1 tablet Jan, 017 5 days Active Lovastatin 20 MG TAKE ONE TABLET BY MOUTH ONCE DAILY 90 Active Fluoxetine HCl 10 MG TAKE THREE CAPSULES BY MOUTH ONCE DAILY IN THE MORNING Active Aripiprazole 5 MG Orally at bedtime 1 tablet Active Omeprazole 20 mg Orally Once a day 1 capsule 24h Mar, 90 days Active RESULTS No Results PROCEDURES Procedure Date Ordered Result Body Site [facility] VISIT ESTABLISHED PATIENT Jul 01, 2018 INSTRUCTIONS MEDICATIONS ADMINISTERED No Known Medications MEDICAL (GENERAL) HISTORY Type Description Date Medical History depression Medical History hypothryroidism Medical History hyperlipidemia Medical History trauma: Stroke - with L side faci al drooping Surgical History hysterectomy Surgical History cholecystectomy Surgical History gall bladder removal Hospitalization History surgeries Hospitalization History stroke
--- OUTSIDE RECORDS SUMMARY | 2020-02-21 11:50 | XMS REPORT ---
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 15047069 Problem Hearing loss of both ears H91.93 Acti ve 83355592 Problem Acquired hypothyroidism E03.9 Active 508889351 Problem Pure hypercholesterolemia E78.0 Acti ve 536233605 Problem Major depressive disorder, recurrent episode, mild F33.0 Active 680352684 Problem Other chronic pain G89.29 Active 8 5338436 Problem Gastroesophageal reflux disease without esophagitis K21.9 Active 939549244 Problem Hearing loss H91.90 Active 0106705 1 Problem Edema, unspecified type R60.9 Active 000630603 Problem Mild acid reflux K21.9 Active 235 552550 Problem Medicare welcome exam Z00.00 Active [id number] ALLERGIES No Information ENCOUNTERS Encounter Location Date Diagnosis [facility] [address] [facility] [id number] [address] [place] [address] Apr, [facility] [address] [facility] [id number] [address] [place] [address] Mar, [facility] [address] [facility] [id number] [address] [place] [address] Mar, [facility] [address] [facility] [id number] [address] [place] [address] Mar, Acquired hypothyroidism E03. 9 [facility] [address] [address] Mar, Pain in left knee M25.562 ; Other chronic pain G89.29 and Gastroesophageal reflux disease without esophagitis K21.9 [place] [address] [address] Jan, [place] [address] [address] Jan, Acquired hypothyroidism E03. 9 [place] [address] [address] Jan, [place] [address] [address] Jan, Acquired hypothyroidism E03. 9 [place] [address] [address] December, Major depressive disorder in full remission, unspecified whether recurrent F32.5 [place] [address] [address] Nov, Acquired hypothyroidism E03. 9 [place] [address] [address] Nov, Pure hypercholesterolemia E7 8.0 ; Peripheral edema R60.9 and Acquired hypothyroidism E03.9 [place] [address] [address] Oct, Mild acid reflux K21.9 [place] [address] [address] Sep, Major depressive disorder, s glenny episode, in partial remission F32.4 and Long-term use of high-risk medication Z79.899 [place] [address] [address] Aug, Encounter for immunization Z 23 [place] [address] [address] Jul, [place] [address] [facility] [id number] [address] [place] [address] Jun, Medicare annual wellness vis it, initial Z00.00 ; Encounter for immunization Z23 and BMI 40.0-44.9, adult Z68.41 [place] [address] [facility] [id number] [address] [place] [address] May, [place] [address] [facility] [id number] [address] [place] [address] May, Encounter for immunization Z 23 [place] [address] [facility] [id number] [address] [place] [address] May, Major depression in partial remission F32.4 [place] [address] [place] [id number] [place] [address] Apr, Hearing loss H91.90 ; Encoun ter for immunization Z23 and Encounter for screening mammogram for breast cancer Z12.31 [place] [address] [place] [id number] [address] [place] [address] Mar, Acquired hypothyroidism E03. 9 [place] [address] [facility] [id number] [address] [place] [address] Jan, Acquired hypothyroidism E03. 9 [place] [address] [facility] [id number] [address] [place] [address] Jan, Acute midline low back pain without sciatica M54.5 [place] [address] [facility] [id number] [address] [place] [address] Jan, Peripheral edema R60.9 [place] [address] [facility] [id number] [address] [place] [address] Jan, Major depression in partial remission F32.4 [place] [address] [facility] [id number] [address] [place] [address] Jan, Localized edema R60.0 [place] [address] [place] [id number] [address] [place] [address] Nov, Pure hypercholesterolemia E7 8.0 [facility] [address] [id number] [address] [place] [address] Nov, Pure hypercholesterolemia E7 8.0 [facility] [address] [id number] [address] [place] [address] Nov, Peripheral edema R60.9 [facility] [address] [id number] [address] [place] [address] Oct, Major depression in partial remission F32.4 [facility] [address] [id number] [address] [place] [address] Aug, [facility] [address] [id number] [address] [place] [address] Aug, Elevated blood pressure read ing R03.0 [facility] [address] [id number] [address] [place] [address] Aug, [facility] [address] [facility] [id number] [address] [place] [address] Jun, Major depression in partial remission F32.4 [facility] [address] [id number] [address] [place] [address] Apr, Major depressive disorder, r ecurrent episode, mild F33.0 [facility] [address] [facility] [id number] [address] [place] [address] Mar, Encounter for well woman exa m with routine gynecological exam Z01.419 and Breast cancer screening Z12.39 [facility] [address] [id number] [address] [place] [address] Jan, Hypothyroidism, unspecified type E03.9 [facility] [address] [facility] [id number] [address] [place] [address] Jan, Major depressive disorder, r ecurrent episode, mild F33.0 [facility] [address] [facility] [id number] [address] [place] [address] Jan, Abscess L02.91 [facility] [address] [facility] [id number] [address] [place] [address] 22 Jan, 2016 Furuncle L02.92 [place] [address] [facility] [id number] [address] [place] [address] 16 Jan, 2016 Major depression in partial remission F32.4 [place] [id number] [facility] [id number] [address] [place] [address] 13 Jan, 2016 Major depressive disorder, r ecurrent episode, mild F33.0 [facility] [address] [facility] [id number] [address] [place] [address] December, Acute bacterial conjunctivit is of left eye H10.022 [place] [address] [facility] [id number] [address] [place] [address] December, Major depressive disorder, r ecurrent episode, mild F33.0 [place] [address] [facility] [id number] [address] [place] [address] Nov, [place] [address] [facility] [id number] [address] [place] [address] Nov, Major depressive disorder, r ecurrent episode, mild F33.0 [place] [address] [facility] [id number] [address] [place] [address] 18 Nov, 2015 Hearing loss H91.90 [place] [address] [facility] [id number] [address] [place] [address] 17 Oct, 2015 Major depression in partial remission F32.4 [place] [address] [facility] [id number] [address] [place] [address] 15 Oct, 2015 Pneumonia J18.9 [facility] [address] [facility] [id number] [address] [place] [address] 10 Oct, 2015 Influenza A J10.1 ; Fever, u nspecified R50.9 ; Conjunctivitis H10.9 and Cough R05 [place] [address] [facility] [id number] [address] [place] [address] 10 Oct, 2015 Major depressive disorder, r ecurrent episode, severe, with psychotic behavior F33.3 [facility] [address] [facility] [id number] [address] [place] [address] Aug, [facility] [address] [facility] [id number] [address] [place] [address] Aug, Acquired hypothyroidism E03. 9 and Pure hypercholesterolemia E78.0 [facility] [address] [place] [id number] [address] [place] [address] Aug, Major depressive disorder, r ecurrent episode, severe, with psychotic behavior F33.3 [facility] [address] [facility] [id number] [address] [place] [address] Jul, [facility] [address] [place] [id number] [address] [place] [address] Jul, Major depressive disorder, r ecurrent episode, severe, with psychotic behavior F33.3 [facility] [address] [place] [id number] [address] [place] [address] Jun, Major depressive disorder, r ecurrent episode, severe, with psychotic behavior F33.3 [facility] [address] [facility] [id number] [address] [place] [address] May, [facility] [address] [place] [id number] [address] [place] [address] May, Major depressive disorder, r ecurrent episode, severe, with psychotic behavior F33.3 [facility] [address] [facility] [id number] [address] [place] [address] May, Major depressive disorder, r ecurrent episode, severe, with psychotic behavior F33.3 [facility] [address] [facility] [id number] [address] [place] [address] Apr, [facility] [address] [place] [id number] [address] [place] [address] Apr, Depressive disorder, not els ewhere classified 311 and Unspecified psychosis 298.9 [facility] [address] [facility] [id number] [address] [place] [address] Apr, Depression 311 and Hard of h earing 389.9 [facility] [address] [facility] [id number] [address] [place] [address] 10 Apr, 2015 Schizoaffective disorder 295 .70 [facility] [address] [facility] [id number] [address] [place] [phone] 08 Apr, 2015 Major depressive disorder, r ecurrent episode, severe, specified as with psychotic behavior 296.34 [facility] [address] [facility] [id number] [address] [place] [address] Apr, Psychosis 298.9 and Depressi on 311 [place] [address] [facility] [id number] [address] [place] [address] Apr, Depressive disorder, not els ewhere classified 311 and Unspecified psychosis 298.9 [place] [address] [place] [id number] [address] [place] [address] Mar, Screening for cervical cance r V76.2 ; Well woman exam with routine gynecological exam V72.31 ; Colon cancer screening V76.51 ; Breast cancer screening V76.10 ; Irritable bowel syndrome 564.1 and Psychosis 298.9 [place] [address] [place] [id number] [address] [place] [address] Mar, Psychosis 298.9 [place] [address] [place] [id number] [address] [place] [address] Mar, Unspecified psychosis 298.9 [facility] [address] [facility] [id number] [address] [place] [address] Nov, [facility] [address] [facility] [id number] [address] [place] [address] Nov, [place] [address] [place] [id number] [address] [place] [address] Oct, [facility] [address] [place] [id number] [address] [place] [id number] Oct, [facility] [address] [id number] [facility] [place] [address] Jul, [facility] [address] [id number] [address] [place] [address], [place] [address] Jul, [facility] [address] [id number] [address] [place] [address], [place] [address] May, [facility] [address] [id number] [address] [place] [address], [place] [address] Apr, [facility] [address] [id number] [address] [place] [address], [place] [address] Apr, [facility] [address] [id number] [address] [place] [address], [place] [address] Apr, [facility] [address] [id number] [address] [place] [address], [place] [address] Apr, [facility] [address] [id number] [address] [place] [address], [place] [address] Apr, [facility] [address] [id number] [address] [place] [address], [place] [address] Mar, [facility] [address] [id number] [address] [place] [address], [place] [address] Mar, [facility] [address] [id number] [address] [place] [address], [place] [address] Mar, [facility] [address] [id number] [address] [place] [address], [place] [address] Mar, [facility] [address] [id number] [address] [place] [address], [place] [address] Mar, [facility] [address] [id number] [address] [place] [address], [place] [address] Mar, [facility] [address] [id number] [address] [place] [address], [place] [address] Mar, [facility] [address] [id number] [address] [place] [address], [place] [address] Mar, [facility] [address] [id number] [address] [place] [address], [place] [address] Mar, [facility] [address] [id number] [address] [place] [address], [place] [address] Mar, [facility] [address] [id number] [address] [place] [address], [place] [address] Jan, [facility] [address] [id number] [address] [place] [address], [place] [address] Jan, [facility] [address] [id number] [address] [place] [address], [place] [address] December, [facility] [address] [id number] [address] [place] [address], [place] [address] December, [facility] [address] [id number] [address] [place] [address], [place] [address] Nov, [facility] [address] [id number] [address] [place] [address], [place] [address] Nov, [facility] [address] [id number] [address] [place] [address], [place] [address] Sep, [facility] [address] [id number] [address] [place] [address], [place] [address] Sep, [facility] [address] [id number] [address] [place] [address], [place] [address] Sep, [facility] [address] [id number] [address] [place] [address], [place] [address] Sep, [facility] [address] [id number] [address] [place] [address], [place] [address] Jun, [facility] [address] [id number] [address] [place] [address], [place] [address] Jun, [facility] [address] [id number] [address] [place] [address], [place] [address] Jun, [facility] [address] [id number] [address] [place] [address], [place] [address] Jun, [facility] [address] [id number] [address] [place] [address], [place] [address] May, [facility] [address] [id number] [address] [place] [address], [place] [address] May, [facility] [address] [id number] [address] [place] [address], [place] [address] Apr, [facility] [address] [id number] [address] [place] [address], [place] [address] Mar, [facility] [address] [id number] [address] [place] [address], [place] [address] Mar, [facility] [address] [id number] [address] [place] [address], [place] [address] Mar, [facility] [address] [id number] [address] [place] [address], [place] [address] Mar, [facility] [address] [id number] [address] [place] [address], [place] [address] Mar, [facility] [address] [id number] [address] [place] [address], [place] [address] Jan, [facility] [address] [id number] [address] [place] [address], [place] [address] Jan, [facility] [address] [id number] [address] [place] [address], [place] [address] Jan, [facility] [address] [id number] [address] [place] [address], [place] [address] December, [facility] [address] [id number] [address] [place] [address], [place] [address] Oct, [facility] [address] [id number] [address] [place] [address], [place] [address] Oct, [facility] [address] [id number] [address] [place] [address], [place] [address] Oct, [facility] [address] [id number] [address] [place] [address], [place] [address] Oct, [facility] [address] [id number] [address] [place] [address], [place] [address] Aug, [facility] [address] [id number] [address] [place] [address], [place] [address] Jun, [facility] [address] [id number] [address] [place] [address], [place] [address] Jun, [facility] [address] [id number] [address] [place] [address], [place] [address] Jun, [facility] [address] [id number] [address] [place] [address], [place] [address] Jun, [facility] [address] [id number] [address] [place] [address], [place] [address] May, [facility] [address] [id number] [address] [place] [address], [place] [address] Apr, [facility] [address] [id number] [address] [place] [address], [place] [address] Mar, [facility] [address] [id number] [address] [place] [address], [place] [address] Jan, [facility] [address] [id number] [address] [place] [address], [place] [address] Jan, [facility] [address] [id number] [address] [place] [address], [place] [address] December, [facility] [address] [id number] [address] [place] [address], [place] [phone] December, [facility] [address] [id number] [address] [place] [address], [place] [id number] December, [facility] [address] [id number] [address] [place] [address], [place] [id number] December, [facility] [address] [id number] [address] [place] [phone] Nov, [facility] [address] [id number] [address] [place] [phone] Oct, [facility] [address] [id number] [address] [place] [id number] Sep, [facility] [address] [id number] [address] [place] [phone] Sep, [facility] [address] [id number] [address] [place] [id number] Sep, [facility] [address] [id number] [address] [place] [id number] Sep, [facility] [address] [id number] [address] [place] [phone] Aug, [facility] [address] [id number] [address] [place] [phone] Jun, [facility] [address] [id number] [address] [place] [phone] May, [facility] [address] [id number] [address] [place] [phone] Mar, [facility] [address] [id number] [address] [place] [phone] Jun, [facility] [address] [id number] [address] [place] [phone] May, [facility] [address] [id number] [address] [place] [phone] May, IMMUNIZATIONS No Known Immunizations SOCIAL HISTORY Never Assessed REASON FOR VISIT Appointment PLAN OF CARE VITAL SIGNS MEDICATIONS Unknown [...]
--- OUTSIDE RECORDS SUMMARY | 2020-02-21 11:50 | XMS REPORT ---
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 31473693 Problem Hearing loss of both ears H91.93 Acti ve 81224851 Problem Acquired hypothyroidism E03.9 Active 384062310 Problem Pure hypercholesterolemia E78.0 Acti ve 795323782 Problem Major depressive disorder, recurrent episode, mild F33.0 Active 254331571 Problem Other chronic pain G89.29 Active 8 7648694 Problem Gastroesophageal reflux disease without esophagitis K21.9 Active 466817735 Problem Hearing loss H91.90 Active 5762965 1 Problem Edema, unspecified type R60.9 Active 956810245 Problem Mild acid reflux K21.9 Active 235 017220 Problem Medicare welcome exam Z00.00 Active 932934456 ALLERGIES Substance Reaction Event Type Date Status Penicillins Unknown Non Drug Allergy Mar, Active ENCOUNTERS Encounter Location Date Diagnosis [facility] [place] [address] [facility] [id number] [address] [place] [address] Jun, [facility] [place] [address] [facility] [id number] [address] [place] [address] Apr, [facility] [place] [address] [facility] [id number] [address] [place] [address] Mar, Major depression in partial remission F32.4 and BMI 40.0-44.9, adult Z68.41 [facility] [place] [address] [id number] [address] [place] [address] Mar, [facility] [place] [address] [id number] [address] [place] [address] Mar, Acquired hypothyroidism E03. 9 [facility] [place] [address] [facility] [id number] [address] [place] [address] Mar, Pain in left knee M25.562 ; Other chronic pain G89.29 and Gastroesophageal reflux disease without esophagitis K21.9 [facility] [place] [address] [id number] [address] [place] [address] Jan, [facility] [place] [address] [id number] [address] [place] [address] Jan, Acquired hypothyroidism E03. 9 [facility] [place] [address] [id number] [address] [place] [address] Jan, [facility] [place] [address] [facility] [id number] [address] [place] [address] Jan, Acquired hypothyroidism E03. 9 [facility] [place] [address] [facility] [id number] [address] [place] [address] December, Major depressive disorder in full remission, unspecified whether recurrent F32.5 [facility] [place] [address] [facility] [id number] [address] [place] [address] Nov, Acquired hypothyroidism E03. 9 [facility] [place] [address] [facility] [id number] [address] [place] [address] Nov, Pure hypercholesterolemia E7 8.0 ; Peripheral edema R60.9 and Acquired hypothyroidism E03.9 [facility] [place] [address] [id number] [address] [place] [address] Oct, Mild acid reflux K21.9 [facility] [place] [address] [facility] [id number] [address] [place] [address] Sep, Major depressive disorder, s glenny episode, in partial remission F32.4 and Long-term use of high-risk medication Z79.899 [place] [address] [id number] [address] [place] [address] Aug, Encounter for immunization Z 23 [facility] [place] [address] [id number] [address] [place] [address] Jul, [facility] [place] [address] [id number] [address] [place] [address] Jun, Medicare annual wellness vis it, initial Z00.00 ; BMI 40.0-44.9, adult Z68.41 and Encounter for immunization Z23 [facility] [place] [address] [id number] [address] [place] [address] May, [facility] [place] [address] [id number] [address] [place] [address] May, Encounter for immunization Z 23 [facility] [place] [address] [id number] [address] [place] [address] May, Major depression in partial remission F32.4 [facility] [place] [address] [id number] [address] [place] [address] Apr, Hearing loss H91.90 ; Encoun ter for immunization Z23 and Encounter for screening mammogram for breast cancer Z12.31 [facility] [place] [address] [id number] [address] [place] [address] Mar, Acquired hypothyroidism E03. 9 [facility] [place] [address] [id number] [address] [place] [address] Jan, Acquired hypothyroidism E03. 9 [facility] [place] [address] [id number] [address] [place] [address] Jan, Acute midline low back pain without sciatica M54.5 [facility] [place] [address] [id number] [address] [place] [address] Jan, Peripheral edema R60.9 [facility] [place] [address] [facility] [id number] [address] [place] [address] Jan, Major depression in partial remission F32.4 [place] [address] [id number] [address] [place] [address] Jan, Localized edema R60.0 [facility] [place] [address] [id number] [address] [place] [address] Nov, Pure hypercholesterolemia E7 8.0 [facility] [place] [address] [id number] [address] [place] [address] Nov, Pure hypercholesterolemia E7 8.0 [facility] [place] [address] [id number] [address] [place] [address] Nov, Peripheral edema R60.9 [facility] [place] [address] [id number] [address] [place] [address] Oct, Major depression in partial remission F32.4 [facility] [place] [address] [facility] [id number] [address] [place] [address] Aug, [facility] [place] [address] [facility] [id number] [address] [place] [address] Aug, Elevated blood pressure read ing R03.0 [facility] [place] [address] [id number] [address] [place] [address] Aug, [facility] [place] [address] [facility] [id number] [address] [place] [address] Jun, Major depression in partial remission F32.4 [facility] [place] [address] [facility] [id number] [address] [place] [address] Apr, Major depressive disorder, r ecurrent episode, mild F33.0 [facility] [place] [address] [id number] [address] [place] [address] Mar, 2016 Encounter for well woman exa m with routine gynecological exam Z01.419 and Breast cancer screening Z12.39 [facility] [place] [address] [id number] [address] [place] [address] Jan, 2016 Hypothyroidism, unspecified type E03.9 [facility] [place] [address] [facility] [id number] [address] [place] [address] Jan, Major depressive disorder, r ecurrent episode, mild F33.0 [facility] [place] [address] [id number] [address] [place] [address] 30 Jan, 2016 Abscess L02.91 [facility] [place] [address] [id number] [address] [place] [address] Jan, Furuncle L02.92 [facility] [place] [address] [id number] [address] [place] [address] 16 Jan, 2016 Major depression in partial remission F32.4 [facility] [place] [address] [id number] [address] [place] [address] 13 Jan, 2016 Major depressive disorder, r ecurrent episode, mild F33.0 [facility] [address] [id number] [address] [place] [address] December, Acute bacterial conjunctivit is of left eye H10.022 [facility] [place] [address] [id number] [address] [place] [address] December, Major depressive disorder, r ecurrent episode, mild F33.0 [facility] [place] [address] [id number] [address] [place] [address] Nov, [facility] [place] [address] [id number] [address] [place] [address] Nov, Major depressive disorder, r ecurrent episode, mild F33.0 [facility] [place] [address] [id number] [address] [place] [address] 18 Nov, 2015 Hearing loss H91.90 [facility] [place] [address] [id number] [address] [place] [address] 17 Oct, 2015 Major depression in partial remission F32.4 [facility] [place] [address] [id number] [address] [place] [address] 15 Oct, 2015 Pneumonia J18.9 [facility] [address] [id number] [address] [place] [address] Oct, Influenza A J10.1 ; Fever, u nspecified R50.9 ; Conjunctivitis H10.9 and Cough R05 [place] [address] [id number] Oct, Major depressive disorder, r ecurrent episode, severe, with psychotic behavior F33.3 [place] [address] [address] Aug, [place] [address] [address] Aug, Acquired hypothyroidism E03. 9 and Pure hypercholesterolemia E78.0 [place] [address] [address] Aug, Major depressive disorder, r ecurrent episode, severe, with psychotic behavior F33.3 [place] [address] [address] Jul, [place] [address] [address] Jul, Major depressive disorder, r ecurrent episode, severe, with psychotic behavior F33.3 [place] [address] [address] Jun, Major depressive disorder, r ecurrent episode, severe, with psychotic behavior F33.3 [place] [address] [place] [id number] [address] [place] [address] May, [place] [address] [address] May, Major depressive disorder, r ecurrent episode, severe, with psychotic behavior F33.3 [place] [address] [address] May, Major depressive disorder, r ecurrent episode, severe, with psychotic behavior F33.3 [place] [address] [place] [id number] [address] [place] [address] Apr, [facility] [place] [address] [facility] [id number] [address] [place] [address] Apr, Depressive disorder, not els ewhere classified 311 and Unspecified psychosis 298.9 [facility] [place] [address] [facility] [id number] [address] [place] [address] Apr, Depression 311 and Hard of h earing 389.9 [facility] [place] [address] [place] [id number] [address] [place] [address] Apr, Schizoaffective disorder 295 .70 [place] [address] [facility] [id number] [address] [place] [address] 08 Apr, 2015 Major depressive disorder, r ecurrent episode, severe, specified as with psychotic behavior 296.34 [place] [address] [place] [id number] [address] [place] [address] Apr, Psychosis 298.9 and Depressi on 311 [place] [address] [place] [id number] [address] [place] [address] Apr, Depressive disorder, not els ewhere classified 311 and Unspecified psychosis 298.9 [place] [address] [place] [id number] [address] [place] [address] Mar, Screening for cervical cance r V76.2 ; Well woman exam with routine gynecological exam V72.31 ; Colon cancer screening V76.51 ; Breast cancer screening V76.10 ; Irritable bowel syndrome 564.1 and Psychosis 298.9 [facility] [place] [address] [facility] [id number] [address] [place] [address] Mar, Psychosis 298.9 [facility] [place] [address] [facility] [id number] [address] [place] [address] Mar, Unspecified psychosis 298.9 [facility] [place] [address] [facility] [id number] [address] [place] [address] Nov, [place] [address] [place] [id number] [address] [place] [address] Nov, [facility] [address] [id number] [address] [place] [address], [place] [address] Oct, [facility] [address] [id number] [address] [place] [address], [place] [address] Oct, [facility] [address] [id number] [address] [place] [address], [place] [address] Jul, [facility] [address] [id number] [address] [place] [address], [place] [address] Jul, [facility] [address] [id number] [address] [place] [address], [place] [address] May, [facility] [address] [id number] [address] [place] [address], [place] [address] Apr, [facility] [address] [id number] [address] [place] [address], [place] [address] Apr, [facility] [address] [id number] [address] [place] [address], [place] [address] Apr, [facility] [address] [id number] [address] [place] [address], [place] [address] Apr, [facility] [address] [id number] [address] [place] [address], [place] [address] Apr, [facility] [address] [id number] [address] [place] [address], [place] [address] Mar, [facility] [address] [id number] [address] [place] [address], [place] [address] Mar, [facility] [address] [id number] [address] [place] [address], [place] [address] Mar, [facility] [address] [id number] [address] [place] [address], [place] [address] Mar, [facility] [address] [id number] [address] [place] [address], [place] [address] Mar, [facility] [address] [id number] [address] [place] [address], [place] [address] Mar, [facility] [address] [id number] [facility] [place] [address] Mar, [facility] [address] [id number] [address] [place] [address], [place] [address] Mar, [facility] [address] [id number] [address] [place] [address], [place] [address] Mar, [facility] [address] [id number] [address] [place] [address], [place] [address] Mar, [facility] [address] [id number] [address] [place] [address], [place] [address] Jan, [facility] [address] [id number] [address] [place] [address], [place] [address] Jan, [facility] [address] [id number] [address] [place] [address], [place] [address] December, [facility] [address] [id number] [address] [place] [address], [place] [address] December, [facility] [address] [id number] [address] [place] [address], [place] [address] Nov, [facility] [address] [id number] [address] [place] [address], [place] [address] Nov, [facility] [address] [id number] [address] [place] [address], [place] [address] Sep, [facility] [address] [id number] [address] [place] [address], [place] [address] Sep, [facility] [address] [id number] [address] [place] [address], [place] [address] Sep, [facility] [address] [id number] [address] [place] [address], [place] [address] Sep, [facility] [address] [id number] [address] [place] [address], [place] [address] Jun, [facility] [address] [id number] [address] [place] [address], [place] [address] 14 Jun, 2013 [facility] [address] [id number] [address] [place] [address], [place] [address] Jun, [facility] [address] [id number] [address] [place] [address], [place] [address] Jun, [facility] [address] [id number] [address] [place] [address], [place] [address] May, [facility] [address] [id number] [address] [place] [address], [place] [address] May, [facility] [address] [id number] [address] [place] [address], [place] [address] Apr, [facility] [address] [id number] [address] [place] [address], [place] [address] Mar, [facility] [address] [id number] [address] [place] [address], [place] [address] Mar, [facility] [address] [id number] [address] [place] [address], [place] [address] Mar, [facility] [address] [id number] [address] [place] [address], [place] [address] Mar, [facility] [address] [id number] [address] [place] [address], [place] [address] Mar, [facility] [address] [id number] [address] [place] [address], [place] [address] Jan, [facility] [address] [id number] [address] [place] [address], [place] [address] Jan, [facility] [address] [id number] [address] [place] [address], [place] [address] Jan, [facility] [address] [id number] [address] [place] [address], [place] [address] December, [facility] [address] [id number] [address] [place] [address], [place] [address] 13 Oct, 2012 [facility] [address] [id number] [address] [place] [address], [place] [address] 12 Oct, 2012 [facility] [address] [id number] [address] [place] [address], [place] [address] 11 Oct, 2012 [facility] [address] [id number] [address] [place] [address], [place] [address] 11 Oct, 2012 [facility] [address] [id number] [address] [place] [address], [place] [address] Aug, [facility] [address] [id number] [address] [place] [address], [place] [address] Jun, [facility] [address] [id number] [address] [place] [address], [place] [address] Jun, [facility] [address] [id number] [address] [place] [address], [place] [address] Jun, [facility] [address] [id number] [address] [place] [address], [place] [address] Jun, [facility] [address] [id number] [address] [place] [address], [place] [address] 05 May, 2012 [facility] [address] [id number] [address] [place] [address], [place] [address] 10 Apr, 2012 [facility] [address] [id number] [address] [place] [address], [place] [address] Mar, [facility] [address] [id number] [address] [place] [address], [place] [address] Jan, [facility] [address] [id number] [address] [place] [address], [place] [address] Jan, [facility] [address] [id number] [address] [place] [address], [place] [address] December, [facility] [address] [id number] [address] [place] [address], [place] [address] December, [facility] [address] [id number] [address] [place] [id number] December, [facility] [address] [id number] [address] [place] [id number] December, [facility] [address] [id number] [address] [place] [id number] Nov, [facility] [address] [id number] [address] [place] [id number] Oct, [facility] [address] [id number] [address] [place] [id number] Sep, [facility] [address] [id number] [address] [place] [address] Sep, [facility] [address] [id number] [address] [place] [id number] Sep, [facility] [place] [address] [id number] [address] [place] [id number] Sep, [facility], [place], [facility] [address] [id number] [address] [place] [id number] Aug, [facility], [place], [facility] [address] [id number] [address] [place] [phone] Jun, [facility], [place], [facility] [address] [id number] [address] [place] [id number] May, [facility], [place], [facility] [address] [id number] [address] [place] [id number] Mar, [facility], [place], [facility] [address] [id number] [address] [place] [id number] Jun, [facility], [place], [facility] [address] [id number] [address] [place] [phone] May, [facility], [place], [facility] [address] [id number] [address] [place] [id number] May, IMMUNIZATIONS No Known Immunizations SOCIAL HISTORY Never Assessed REASON FOR VISIT Knee pain Pt having Rt knee pain for several months, has had some improvement, but has had pain off and on since last snow, also having heartburn for several w eeks (3-4) ARIE [place] PLAN OF CARE Activity Details Follow Up 2 Months Reason:Routine chec k VITAL SIGNS Height 65 in 2018-03-03 Weight 239.8 lbs 2018-03-03 Heart Rate 72 bpm 2018-03-03 Respiratory Rate 18 2018-03-03 BMI 39.90 kg/m2 2018-03-03 Blood pressure systolic 118 mmHg 2018-03-03 Blood pressure diastolic 72 mmHg 2018-03-03 MEDICATIONS Medication Instructions Dosage Frequency Start Date End Date Duration S tatus Lasix 40 mg Orally twice a day in AM and noon 1 tablet Jan, 017 05 days Active Lovastatin 20 MG TAKE ONE TABLET BY MOUTH ONCE DAILY 90 Active Fluoxetine HCl 10 MG TAKE THREE CAPSULES BY MOUTH ONCE DAILY IN THE MORNING Active Levothyroxine Sodium 112 MCG Orally Once a day 1 tablet on an empty stomach in the morning 24h Jan, 30 day(s) Active Omeprazole 20 mg Orally Once a day 1 capsule 24h Mar, 90 days Active Trazodone HCl 50 MG TAKE ONE TABLET BY MOUTH ONC E DAILY AT BEDTIME FOR SLEEP Active Aripiprazole 5 MG Orally at bedtime 1 tablet Active Bentyl 10 MG Orally Four times a day befo re meals and at bedtime for urgency with bowel movements 1 capsule 30 Acti ve Aripiprazole 10 MG TAKE ONE (1) TABLET BY MOUTH ONCE DAILY A T BEDTIME 30 Active RESULTS No Results PROCEDURES Procedure Date Ordered Result Body Site [facility] VISIT ESTABLISHED PATIENT Mar 03, 2018 INSTRUCTIONS MEDICATIONS ADMINISTERED No Known Medications MEDICAL (GENERAL) HISTORY Type Description Date Medical History depression Medical History hypothryroidism Medical History hyperlipidemia Medical History trauma: Stroke - with L side faci al drooping Surgical History hysterectomy Surgical History cholecystectomy Surgical History gall bladder removal Hospitalization History surgeries Hospitalization History stroke
--- OUTSIDE RECORDS SUMMARY | 2020-02-21 11:50 | XMS REPORT ---
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 46006968 Problem Hearing loss of both ears H91.93 Acti ve 38337419 Problem Acquired hypothyroidism E03.9 Active 867378735 Problem Pure hypercholesterolemia E78.0 Acti ve 237048614 Problem Major depressive disorder, recurrent episode, mild F33.0 Active 060141501 Problem Other chronic pain G89.29 Active 8 6183233 Problem Gastroesophageal reflux disease without esophagitis K21.9 Active 448368410 Problem Hearing loss H91.90 Active 7154891 1 Problem Edema, unspecified type R60.9 Active 612666663 Problem Mild acid reflux K21.9 Active 235 974584 Problem Medicare welcome exam Z00.00 Active 165799926 ALLERGIES No Information ENCOUNTERS Encounter Location Date Diagnosis [facility] [address] [facility] [id number] [address] [place] [id number] Apr, [facility] [address] [facility] [id number] [address] [place] [phone] Mar, [facility] [address] [facility] [id number] [address] [place] [id number] Mar, [facility] [address] [facility] [id number] [address] [place] [id number] Mar, Acquired hypothyroidism E03. 9 [facility] [address] [address] Mar, Pain in left knee M25.562 ; Other chronic pain G89.29 and Gastroesophageal reflux disease without esophagitis K21.9 [place] [address] [address] Jan, [place] [address] [address] Jan, Acquired hypothyroidism E03. 9 [place] [address] [address] Jan, [place] [address] [address] Jan, Acquired hypothyroidism E03. 9 [place] [address] [address] December, Major depressive disorder in full remission, unspecified whether recurrent F32.5 [place] [address] [address] Nov, Acquired hypothyroidism E03. 9 [place] [address] [address] Nov, Pure hypercholesterolemia E7 8.0 ; Peripheral edema R60.9 and Acquired hypothyroidism E03.9 [place] [address] [address] Oct, Mild acid reflux K21.9 [place] [address] [address] Sep, Major depressive disorder, s glenny episode, in partial remission F32.4 and Long-term use of high-risk medication Z79.899 [place] [address] [address] Aug, Encounter for immunization Z 23 [place] [address] [address] Jul, [place] [address] [facility] [id number] [address] [place] [id number] Jun, Medicare annual wellness vis it, initial Z00.00 ; Encounter for immunization Z23 and BMI 40.0-44.9, adult Z68.41 [place] [address] [facility] [id number] [address] [place] [id number] May, [place] [address] [facility] [id number] [address] [place] [id number] May, Encounter for immunization Z 23 [place] [address] [facility] [id number] [address] [place] [phone] May, Major depression in partial remission F32.4 [place] [address] [place] [id number] [place] [address] Apr, Hearing loss H91.90 ; Encoun ter for immunization Z23 and Encounter for screening mammogram for breast cancer Z12.31 [place] [address] [place] [id number] [address] [place] [id number] Mar, Acquired hypothyroidism E03. 9 [place] [address] [facility] [id number] [address] [place] [id number] Jan, Acquired hypothyroidism E03. 9 [place] [address] [facility] [id number] [address] [place] [id number] Jan, Acute midline low back pain without sciatica M54.5 [place] [address] [facility] [id number] [address] [place] [id number] Jan, Peripheral edema R60.9 [place] [address] [facility] [id number] [address] [place] [id number] Jan, Major depression in partial remission F32.4 [place] [address] [facility] [id number] [address] [place] [id number] Jan, Localized edema R60.0 [place] [address] [place] [id number] [address] [place] [id number] Nov, Pure hypercholesterolemia E7 8.0 [facility] [address] [id number] [address] [place] [phone] Nov, Pure hypercholesterolemia E7 8.0 [facility] [address] [id number] [address] [place] [id number] Nov, Peripheral edema R60.9 [facility] [address] [id number] [address] [place] [phone] Oct, Major depression in partial remission F32.4 [facility] [address] [id number] [address] [place] [phone] Aug, [facility] [address] [id number] [address] [place] [phone] Aug, Elevated blood pressure read ing R03.0 [facility] [address] [id number] [address] [place] [phone] Aug, [facility] [address] [facility] [id number] [address] [place] [phone] Jun, Major depression in partial remission F32.4 [facility] [address] [id number] [address] [place] [phone] Apr, Major depressive disorder, r ecurrent episode, mild F33.0 [facility] [address] [facility] [id number] [address] [place] [id number] Mar, Encounter for well woman exa m with routine gynecological exam Z01.419 and Breast cancer screening Z12.39 [facility] [address] [id number] [address] [place] [id number] Jan, Hypothyroidism, unspecified type E03.9 [facility] [address] [facility] [id number] [address] [place] [id number] Jan, Major depressive disorder, r ecurrent episode, mild F33.0 [facility] [address] [facility] [id number] [address] [place] [phone] Jan, Abscess L02.91 [facility] [address] [facility] [id number] [address] [place] [id number] 22 Jan, 2016 Furuncle L02.92 [place] [address] [facility] [id number] [address] [place] [id number] 16 Jan, 2016 Major depression in partial remission F32.4 [place] [address] [facility] [id number] [address] [place] [id number] 13 Jan, 2016 Major depressive disorder, r ecurrent episode, mild F33.0 [facility] [address] [facility] [id number] [address] [place] [phone] December, Acute bacterial conjunctivit is of left eye H10.022 [place] [address] [facility] [id number] [address] [place] [phone] December, Major depressive disorder, r ecurrent episode, mild F33.0 [place] [address] [facility] [id number] [address] [place] [id number] Nov, [place] [address] [facility] [id number] [address] [place] [phone] Nov, Major depressive disorder, r ecurrent episode, mild F33.0 [place] [address] [facility] [id number] [address] [place] [id number] 18 Nov, 2015 Hearing loss H91.90 [place] [address] [facility] [id number] [address] [place] [id number] 17 Oct, 2015 Major depression in partial remission F32.4 [place] [address] [facility] [id number] [address] [place] [id number] 15 Oct, 2015 Pneumonia J18.9 [facility] [address] [facility] [id number] [address] [place] [id number] 10 Oct, 2015 Influenza A J10.1 ; Fever, u nspecified R50.9 ; Conjunctivitis H10.9 and Cough R05 [place] [address] [facility] [id number] [address] [place] [id number] 10 Oct, 2015 Major depressive disorder, r ecurrent episode, severe, with psychotic behavior F33.3 [facility] [address] [facility] [id number] [address] [place] [phone] Aug, [facility] [address] [facility] [id number] [address] [place] [id number] Aug, Acquired hypothyroidism E03. 9 and Pure hypercholesterolemia E78.0 [facility] [address] [place] [id number] [address] [place] [id number] Aug, Major depressive disorder, r ecurrent episode, severe, with psychotic behavior F33.3 [facility] [address] [facility] [id number] [address] [place] [id number] Jul, [facility] [address] [place] [id number] [address] [place] [id number] Jul, Major depressive disorder, r ecurrent episode, severe, with psychotic behavior F33.3 [facility] [address] [place] [id number] [address] [place] [id number] Jun, Major depressive disorder, r ecurrent episode, severe, with psychotic behavior F33.3 [facility] [address] [facility] [id number] [address] [place] [phone] May, [facility] [address] [place] [id number] [address] [place] [id number] May, Major depressive disorder, r ecurrent episode, severe, with psychotic behavior F33.3 [facility] [address] [facility] [id number] [address] [place] [id number] May, Major depressive disorder, r ecurrent episode, severe, with psychotic behavior F33.3 [facility] [address] [facility] [id number] [address] [place] [id number] Apr, [facility] [address] [place] [id number] [address] [place] [id number] Apr, Depressive disorder, not els ewhere classified 311 and Unspecified psychosis 298.9 [facility] [address] [facility] [id number] [address] [place] [id number] Apr, Depression 311 and Hard of h earing 389.9 [facility] [address] [facility] [id number] [address] [place] [id number] 10 Apr, 2015 Schizoaffective disorder 295 .70 [facility] [address] [facility] [id number] [address] [place] [id number] 08 Apr, 2015 Major depressive disorder, r ecurrent episode, severe, specified as with psychotic behavior 296.34 [facility] [address] [facility] [id number] [address] [place] [id number] Apr, Psychosis 298.9 and Depressi on 311 [place] [address] [facility] [id number] [address] [place] [id number] Apr, Depressive disorder, not els ewhere classified 311 and Unspecified psychosis 298.9 [place] [address] [place] [id number] [address] [place] [id number] Mar, Screening for cervical cance r V76.2 ; Well woman exam with routine gynecological exam V72.31 ; Colon cancer screening V76.51 ; Breast cancer screening V76.10 ; Irritable bowel syndrome 564.1 and Psychosis 298.9 [place] [address] [place] [id number] [address] [place] [id number] Mar, Psychosis 298.9 [place] [address] [place] [id number] [address] [place] [id number] Mar, Unspecified psychosis 298.9 [facility] [address] [facility] [id number] [address] [place] [id number] Nov, [facility] [address] [facility] [id number] [address] [place] [id number] Nov, [place] [address] [place] [id number] [address] [place] [id number] Oct, [facility] [address] [place] [id number] [address] [place] [phone] Oct, [facility] [address] [id number] [facility] [place] [address] Jul, [facility] [address] [id number] [address] [place] [address], [place] [address] Jul, [facility] [address] [id number] [address] [place] [address], [place] [address] May, [facility] [address] [id number] [address] [place] [address], [place] [address] Apr, [facility] [address] [id number] [address] [place] [address], [place] [address] Apr, [facility] [address] [id number] [address] [place] [address], [place] [address] Apr, [facility] [address] [id number] [address] [place] [address], [place] [address] Apr, [facility] [address] [id number] [address] [place] [address], [place] [address] Apr, [facility] [address] [id number] [address] [place] [address], [place] [address] Mar, [facility] [address] [id number] [address] [place] [address], [place] [address] Mar, [facility] [address] [id number] [address] [place] [address], [place] [address] Mar, [facility] [address] [id number] [address] [place] [address], [place] [address] Mar, [facility] [address] [id number] [address] [place] [address], [place] [address] Mar, [facility] [address] [id number] [address] [place] [address], [place] [address] Mar, [facility] [address] [id number] [address] [place] [address], [place] [address] Mar, [facility] [address] [id number] [address] [place] [address], [place] [address] Mar, [facility] [address] [id number] [address] [place] [address], [place] [address] Mar, [facility] [address] [id number] [address] [place] [address], [place] [address] Mar, [facility] [address] [id number] [address] [place] [address], [place] [address] Jan, [facility] [address] [id number] [address] [place] [address], [place] [address] Jan, [facility] [address] [id number] [address] [place] [address], [place] [address] December, [facility] [address] [id number] [address] [place] [address], [place] [address] December, [facility] [address] [id number] [address] [place] [address], [place] [address] Nov, [facility] [address] [id number] [address] [place] [address], [place] [address] Nov, [facility] [address] [id number] [address] [place] [address], [place] [address] Sep, [facility] [address] [id number] [address] [place] [address], [place] [address] Sep, [facility] [address] [id number] [address] [place] [address], [place] [address] Sep, [facility] [address] [id number] [address] [place] [address], [place] [address] Sep, [facility] [address] [id number] [address] [place] [address], [place] [address] Jun, [facility] [address] [id number] [address] [place] [address], [place] [address] Jun, [facility] [address] [id number] [address] [place] [address], [place] [address] Jun, [facility] [address] [id number] [address] [place] [address], [place] [address] Jun, [facility] [address] [id number] [address] [place] [address], [place] [address] May, [facility] [address] [id number] [address] [place] [address], [place] [address] May, [facility] [address] [id number] [address] [place] [address], [place] [address] Apr, [facility] [address] [id number] [address] [place] [address], [place] [address] Mar, [facility] [address] [id number] [address] [place] [address], [place] [address] Mar, [facility] [address] [id number] [address] [place] [address], [place] [address] Mar, [facility] [address] [id number] [address] [place] [address], [place] [address] Mar, [facility] [address] [id number] [address] [place] [address], [place] [address] Mar, [facility] [address] [id number] [address] [place] [address], [place] [address] Jan, [facility] [address] [id number] [address] [place] [address], [place] [address] Jan, [facility] [address] [id number] [address] [place] [address], [place] [address] Jan, [facility] [address] [id number] [address] [place] [address], [place] [address] December, [facility] [address] [id number] [address] [place] [address], [place] [address] Oct, [facility] [address] [id number] [address] [place] [address], [place] [address] Oct, [facility] [address] [id number] [address] [place] [address], [place] [address] Oct, [facility] [address] [id number] [address] [place] [address], [place] [address] Oct, [facility] [address] [id number] [address] [place] [address], [place] [address] Aug, [facility] [address] [id number] [address] [place] [address], [place] [address] Jun, [facility] [address] [id number] [address] [place] [address], [place] [address] Jun, [facility] [address] [id number] [address] [place] [address], [place] [address] Jun, [facility] [address] [id number] [address] [place] [address], [place] [address] Jun, [facility] [address] [id number] [address] [place] [address], [place] [address] May, [facility] [address] [id number] [address] [place] [address], [place] [address] Apr, [facility] [address] [id number] [address] [place] [address], [place] [address] Mar, [facility] [address] [id number] [address] [place] [address], [place] [address] Jan, [facility] [address] [id number] [address] [place] [address], [place] [address] Jan, [facility] [address] [id number] [address] [place] [address], [place] [address] December, [facility] [address] [id number] [address] [place] [address], [place] [address] December, [facility] [address] [id number] [address] [place] [address], [place] [address] December, [facility] [address] [id number] [address] [place] [address], [place] [address] December, [facility] [address] [id number] [address] [place] [id number] Nov, [facility] [address] [id number] [address] [place] [address] Oct, [facility] [address] [id number] [address] [place] [id number] Sep, [facility] [address] [id number] [address] [place] [id number] Sep, [facility] [address] [id number] [address] [place] [id number] Sep, [facility] [address] [id number] [address] [place] [phone] Sep, [facility] [address] [id number] [address] [place] [id number] Aug, [facility] [address] [id number] [address] [place] [phone] Jun, [facility] [address] [id number] [address] [place] [phone] May, [facility] [address] [id number] [address] [place] [id number] Mar, [facility] [address] [id number] [address] [place] [phone] Jun, [facility] [address] [facility] [id number] [address] [place] [phone] May, [facility] [address] [id number] [address] [place] [phone] May, IMMUNIZATIONS No Known Immunizations SOCIAL HISTORY Never Assessed REASON FOR VISIT [facility], [facility] PLAN OF CARE VITAL SIGNS MEDICATIONS Medication Instructions Dosage Frequency Start Date End Date Duration S kaminius Levothyroxine Sodium 112 MCG Orally Once a [...]
--- OUTSIDE RECORDS SUMMARY | 2020-02-21 11:50 | XMS REPORT ---
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 95839228 Problem Hearing loss of both ears H91.93 Acti ve 58017135 Problem Acquired hypothyroidism E03.9 Active 274230938 Problem Pure hypercholesterolemia E78.0 Acti ve 845885910 Problem Major depressive disorder, recurrent episode, mild F33.0 Active 893634135 Problem Other chronic pain G89.29 Active 8 3318769 Problem Gastroesophageal reflux disease without esophagitis K21.9 Active 950231278 Problem Hearing loss H91.90 Active 0140888 1 Problem Edema, unspecified type R60.9 Active 133493078 Problem Mild acid reflux K21.9 Active 235 120196 Problem Medicare welcome exam Z00.00 Active 035701924 ALLERGIES No Information ENCOUNTERS Encounter Location Date Diagnosis [facility], [place] [address] [facility] [id number] [address] [place] [address] Apr, [facility] [place] [address] [facility] [id number] [address] [place] [address] Mar, [facility] [place] [address] [facility] [id number] [address] [place] [address] Mar, [facility] [place] [address] [facility] [id number] [address] [place] [address] Mar, Acquired hypothyroidism E03. 9 [facility] [place] [address] [address] Mar, Pain in left knee M25.562 ; Other chronic pain G89.29 and Gastroesophageal reflux disease without esophagitis K21.9 [place] [address] [address] Jan, [place] [address] [address] Jan, Acquired hypothyroidism E03. 9 [place] [address] [address] Jan, [place] [address] [address] Jan, Acquired hypothyroidism E03. 9 [place] [address] [address] December, Major depressive disorder in full remission, unspecified whether recurrent F32.5 [place] [address] [address] Nov, Acquired hypothyroidism E03. 9 [place] [address] [address] Nov, Pure hypercholesterolemia E7 8.0 ; Peripheral edema R60.9 and Acquired hypothyroidism E03.9 [place] [address] [address] Oct, Mild acid reflux K21.9 [place] [address] [address] Sep, Major depressive disorder, s glenny episode, in partial remission F32.4 and Long-term use of high-risk medication Z79.899 [place] [address] [address] Aug, Encounter for immunization Z 23 [place] [address] [address] Jul, [place] [address] [address] [facility] [id number] [address] [place] [address] Jun, Medicare annual wellness vis it, initial Z00.00 ; BMI 40.0-44.9, adult Z68.41 and Encounter for immunization Z23 [place] [address] [address] [facility] [id number] [address] [place] [address] May, [place] [address] [address] [place] [id number] [address] [place] [address] May, Encounter for immunization Z 23 [place] [address] [address] [facility] [id number] [address] [place] [address] May, Major depression in partial remission F32.4 [place] [address] [address] [place] [id number] [place] [address] Apr, Hearing loss H91.90 ; Encoun ter for immunization Z23 and Encounter for screening mammogram for breast cancer Z12.31 [place] [address] [address] [place] [id number] [address] [place] [address] Mar, Acquired hypothyroidism E03. 9 [place] [address] [address] [place] [id number] [address] [place] [address] Jan, Acquired hypothyroidism E03. 9 [place] [address] [address] [place] [id number] [address] [place] [address] Jan, Acute midline low back pain without sciatica M54.5 [place] [address] [address] [place] [id number] [address] [place] [address] Jan, Peripheral edema R60.9 [place] [address] [address] [facility] [id number] [address] [place] [address] Jan, Major depression in partial remission F32.4 [place] [address] [address] [place] [id number] [address] [place] [address] Jan, Localized edema R60.0 [place] [address] [address] [place] [id number] [address] [place] [address] Nov, Pure hypercholesterolemia E7 8.0 [facility] [place] [address] [id number] [address] [place] [address] Nov, Pure hypercholesterolemia E7 8.0 [facility] [place] [address] [id number] [address] [place] [address] Nov, Peripheral edema R60.9 [facility] [place] [address] [id number] [address] [place] [address] Oct, Major depression in partial remission F32.4 [facility] [place] [address] [id number] [address] [place] [address] Aug, [facility] [place] [address] [id number] [address] [place] [address] Aug, Elevated blood pressure read ing R03.0 [facility] [place] [address] [id number] [address] [place] [address] Aug, [facility] [place] [address] [facility] [id number] [address] [place] [address] Jun, Major depression in partial remission F32.4 [facility] [place] [address] [id number] [address] [place] [address] Apr, Major depressive disorder, r ecurrent episode, mild F33.0 [facility] [place] [address] [facility] [id number] [address] [place] [address] Mar, Encounter for well woman exa m with routine gynecological exam Z01.419 and Breast cancer screening Z12.39 [facility] [place] [address] [id number] [address] [place] [address] Jan, Hypothyroidism, unspecified type E03.9 [facility] [place] [address] [facility] [id number] [address] [place] [address] Jan, Major depressive disorder, r ecurrent episode, mild F33.0 [facility] [place] [address] [facility] [id number] [address] [place] [address] Jan, Abscess L02.91 [facility] [place] [address] [facility] [id number] [address] [place] [address] 22 Jan, 2016 Furuncle L02.92 [place] [address] [address] [facility] [id number] [address] [place] [address] 16 Jan, 2016 Major depression in partial remission F32.4 [place] [address] [facility] [id number] [address] [place] [address] 13 Jan, 2016 Major depressive disorder, r ecurrent episode, mild F33.0 [facility] [address] [facility] [id number] [address] [place] [address] December, Acute bacterial conjunctivit is of left eye H10.022 [place] [address] [address] [facility] [id number] [address] [place] [address] December, Major depressive disorder, r ecurrent episode, mild F33.0 [place] [address] [address] [facility] [id number] [address] [place] [address] Nov, [place] [address] [address] [facility] [id number] [address] [place] [address] Nov, Major depressive disorder, r ecurrent episode, mild F33.0 [place] [address] [address] [facility] [id number] [address] [place] [address] 18 Nov, 2015 Hearing loss H91.90 [place] [address] [address] [facility] [id number] [address] [place] [address] 17 Oct, 2015 Major depression in partial remission F32.4 [place] [address] [facility] [id number] [address] [place] [address] 15 Oct, 2015 Pneumonia J18.9 [facility] [address] [facility] [id number] [address] [place] [address] 10 Oct, 2015 Influenza A J10.1 ; Fever, u nspecified R50.9 ; Conjunctivitis H10.9 and Cough R05 [place] [address] [address] [facility] [id number] [address] [place] [address] 10 Oct, 2015 Major depressive disorder, r ecurrent episode, severe, with psychotic behavior F33.3 [facility] [place] [address] [facility] [id number] [address] [place] [address] Aug, [facility] [place] [address] [facility] [id number] [address] [place] [address] Aug, Acquired hypothyroidism E03. 9 and Pure hypercholesterolemia E78.0 [facility] [place] [address] [place] [id number] [address] [place] [address] Aug, Major depressive disorder, r ecurrent episode, severe, with psychotic behavior F33.3 [facility] [place] [address] [facility] [id number] [address] [place] [address] Jul, [facility] [place] [address] [place] [id number] [address] [place] [address] Jul, Major depressive disorder, r ecurrent episode, severe, with psychotic behavior F33.3 [facility] [place] [address] [place] [id number] [address] [place] [address] Jun, Major depressive disorder, r ecurrent episode, severe, with psychotic behavior F33.3 [facility] [place] [address] [facility] [id number] [address] [place] [address] May, [facility] [place] [address] [place] [id number] [address] [place] [address] May, Major depressive disorder, r ecurrent episode, severe, with psychotic behavior F33.3 [facility] [place] [address] [facility] [id number] [address] [place] [address] May, Major depressive disorder, r ecurrent episode, severe, with psychotic behavior F33.3 [facility] [place] [address] [facility] [id number] [address] [place] [address] Apr, [facility] [place] [address] [place] [id number] [address] [place] [address] Apr, Depressive disorder, not els ewhere classified 311 and Unspecified psychosis 298.9 [facility] [place] [address] [facility] [id number] [address] [place] [address] Apr, Depression 311 and Hard of h earing 389.9 [facility] [place] [address] [facility] [id number] [address] [place] [address] 10 Apr, 2015 Schizoaffective disorder 295 .70 [facility] [place] [address] [facility] [id number] [address] [place] [address] 08 Apr, 2015 Major depressive disorder, r ecurrent episode, severe, specified as with psychotic behavior 296.34 [facility] [place] [address] [facility] [id number] [address] [place] [address] Apr, Psychosis 298.9 and Depressi on 311 [place] [address] [address] [facility] [id number] [address] [place] [address] Apr, Depressive disorder, not els ewhere classified 311 and Unspecified psychosis 298.9 [place] [address] [address] [place] [id number] [address] [place] [address] Mar, Screening for cervical cance r V76.2 ; Well woman exam with routine gynecological exam V72.31 ; Colon cancer screening V76.51 ; Breast cancer screening V76.10 ; Irritable bowel syndrome 564.1 and Psychosis 298.9 [place] [address] [address] [place] [id number] [address] [place] [address] Mar, Psychosis 298.9 [place] [address] [address] [place] [id number] [address] [place] [address] Mar, Unspecified psychosis 298.9 [facility] [place] [address] [facility] [id number] [address] [place] [address] Nov, [facility] [place] [address] [facility] [id number] [address] [place] [address] Nov, [place] [address] [address] [place] [id number] [address] [place] [address] Oct, [facility] [place] [address] [place] [id number] [address] [place] [address] Oct, [facility] [address] [id number] [facility] [place] [address] Jul, [facility] [address] [id number] [address] [place] [address], [place] [address] Jul, [facility] [address] [id number] [address] [place] [address], [place] [address] May, [facility] [address] [id number] [address] [place] [address], [place] [address] Apr, [facility] [address] [id number] [address] [place] [address], [place] [address] Apr, [facility] [address] [id number] [address] [place] [address], [place] [address] Apr, [facility] [address] [id number] [address] [place] [address], [place] [address] Apr, [facility] [address] [id number] [address] [place] [address], [place] [address] Apr, [facility] [address] [id number] [address] [place] [address], [place] [address] Mar, [facility] [address] [id number] [address] [place] [address], [place] [address] Mar, [facility] [address] [id number] [address] [place] [address], [place] [address] Mar, [facility] [address] [id number] [address] [place] [address], [place] [address] Mar, [facility] [address] [id number] [address] [place] [address], [place] [address] Mar, [facility] [address] [id number] [address] [place] [address], [place] [address] Mar, [facility] [address] [id number] [address] [place] [address], [place] [address] Mar, [facility] [address] [id number] [address] [place] [address], [place] [address] Mar, [facility] [address] [id number] [address] [place] [address], [place] [address] Mar, [facility] [address] [id number] [address] [place] [address], [place] [address] Mar, [facility] [address] [id number] [address] [place] [address], [place] [address] Jan, [facility] [address] [id number] [address] [place] [address], [place] [address] Jan, [facility] [address] [id number] [address] [place] [address], [place] [address] December, [facility] [address] [id number] [address] [place] [address], [place] [address] December, [facility] [address] [id number] [address] [place] [address], [place] [address] Nov, [facility] [address] [id number] [address] [place] [address], [place] [address] Nov, [facility] [address] [id number] [address] [place] [address], [place] [address] Sep, [facility] [address] [id number] [address] [place] [address], [place] [address] Sep, [facility] [address] [id number] [address] [place] [address], [place] [address] Sep, [facility] [address] [id number] [address] [place] [address], [place] [address] Sep, [facility] [address] [id number] [address] [place] [address], [place] [address] Jun, [facility] [address] [id number] [address] [place] [address], [place] [address] Jun, [facility] [address] [id number] [address] [place] [address], [place] [address] Jun, [facility] [address] [id number] [address] [place] [address], [place] [address] Jun, [facility] [address] [id number] [address] [place] [address], [place] [address] May, [facility] [address] [id number] [address] [place] [address], [place] [address] May, [facility] [address] [id number] [address] [place] [address], [place] [address] Apr, [facility] [address] [id number] [address] [place] [address], [place] [address] Mar, [facility] [address] [id number] [address] [place] [address], [place] [address] Mar, [facility] [address] [id number] [address] [place] [address], [place] [address] Mar, [facility] [address] [id number] [address] [place] [address], [place] [address] Mar, [facility] [address] [id number] [address] [place] [address], [place] [address] Mar, [facility] [address] [id number] [address] [place] [address], [place] [address] Jan, [facility] [address] [id number] [address] [place] [address], [place] [address] Jan, [facility] [address] [id number] [address] [place] [address], [place] [address] Jan, [facility] [address] [id number] [address] [place] [address], [place] [address] December, [facility] [address] [id number] [address] [place] [address], [place] [address] Oct, [facility] [address] [id number] [address] [place] [address], [place] [address] Oct, [facility] [address] [id number] [address] [place] [address], [place] [address] Oct, [facility] [address] [id number] [address] [place] [address], [place] [address] Oct, [facility] [address] [id number] [address] [place] [address], [place] [address] Aug, [facility] [address] [id number] [address] [place] [address], [place] [address] Jun, [facility] [address] [id number] [address] [place] [address], [place] [address] Jun, [facility] [address] [id number] [address] [place] [address], [place] [address] Jun, [facility] [address] [id number] [address] [place] [address], [place] [address] Jun, [facility] [address] [id number] [address] [place] [address], [place] [address] May, [facility] [address] [id number] [address] [place] [address], [place] [address] Apr, [facility] [address] [id number] [address] [place] [address], [place] [address] Mar, [facility] [address] [id number] [address] [place] [address], [place] [address] Jan, [facility] [address] [id number] [address] [place] [address], [place] [address] Jan, [facility] [address] [id number] [address] [place] [address], [place] [address] December, [facility] [address] [id number] [address] [place] [address], [place] [address] December, [facility] [address] [id number] [address] [place] [address], [place] [address] December, [facility] [address] [id number] [address] [place] [address], [place] [address] December, [facility] [address] [id number] [address] [place] [address] Nov, [facility] [place] [address] [id number] [address] [place] [address] Oct, [facility] [place] [address] [id number] [address] [place] [address] Sep, [facility], [place] [address] [id number] [address] [place] [phone] Sep, [facility], [place] [address] [id number] [address] [place] [phone] Sep, [facility], [place] [address] [id number] [address] [place] [phone] Sep, [facility], [place] [address] [id number] [address] [place] [phone] Aug, [facility], [place] [address] [facility] [id number] [address] [place] [phone] Jun, [facility], [place] [address] [id number] [address] [place] [phone] May, [facility], [place] [address] [facility] [id number] [address] [place] [phone] Mar, [facility], [place] [address] [id number] [address] [place] [phone] Jun, [facility], [place] [address] [facility] [id number] [address] [place] [phone] May, [facility], [place] [address] [id number] [address] [place] [phone] May, IMMUNIZATIONS No Known Immunizations SOCIAL HISTORY Never Assessed REASON FOR VISIT Lab (walk-in)--[facility] PLAN OF CARE VITAL SIGNS MEDICATIONS Unknown Medications RESULTS Name Result Date Reference Range TSH 2018-01-12 TSH 0.03 0.40-4.50 PROCEDURES Procedure Date Ordered Result Body Site LAB NOT BILLED BY [facility] January 12, 2018 INSTRUCTIONS MEDICATIONS ADMINISTERED No Known Medications MEDICAL (GENERAL) HISTORY Type Description Date Medical History depression Medical History hypothryroidism Medical History hyperlipidemia Medical History trauma: Stroke - with L side faci al drooping Surgical History hysterectomy Surgical History cholecystectomy Surgical History gall bladder removal Hospitalization History surgeries Hospitalization History stroke
--- OUTSIDE RECORDS SUMMARY | 2020-02-21 11:51 | XMS REPORT ---
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 40707100 Problem Hearing loss of both ears H91.93 Acti ve 11743325 Problem Acquired hypothyroidism E03.9 Active 165315923 Problem Pure hypercholesterolemia E78.0 Acti ve 226995692 Problem Major depressive disorder, recurrent episode, mild F33.0 Active 170912155 Problem Other chronic pain G89.29 Active 8 7903966 Problem Gastroesophageal reflux disease without esophagitis K21.9 Active 771243005 Problem Hearing loss H91.90 Active 7724458 1 Problem Edema, unspecified type R60.9 Active 189894046 Problem Mild acid reflux K21.9 Active 235 492882 Problem Medicare welcome exam Z00.00 Active 873966802 ALLERGIES Substance Reaction Event Type Date Status Penicillins Unknown Non Drug Allergy Nov, Active ENCOUNTERS Encounter Location Date Diagnosis [facility] [place] [address] [facility] [id number] [address] [place] [id number] Mar, [facility] [place] [address] [facility] [id number] [address] [place] [id number] Mar, [facility] [place] [address] [facility] [id number] [address] [place] [id number] Mar, Acquired hypothyroidism E03. 9 [facility] [place] [address] [facility] [id number] [address] [place] [address] Mar, Pain in left knee M25.562 ; Other chronic pain G89.29 and Gastroesophageal reflux disease without esophagitis K21.9 [facility] [place] [address] [place] [id number] [address] [place] [id number] Jan, [facility] [place] [address] [facility] [id number] [address] [place] [address] Jan, Acquired hypothyroidism E03. 9 [facility] [place] [address] [place] [id number] [address] [place] [id number] Jan, [place] [address] [place] [id number] [address] [place] [address] Jan, Acquired hypothyroidism E03. 9 [place] [address] [place] [id number] [place] [address] December, Major depressive disorder in full remission, unspecified whether recurrent F32.5 [place] [address] [place] [id number] [address] [place] [address] Nov, Acquired hypothyroidism E03. 9 [place] [address] [place] [id number] [address] [place] [id number] Nov, Pure hypercholesterolemia E7 8.0 ; Peripheral edema R60.9 and Acquired hypothyroidism E03.9 [place] [address] [facility] [id number] [address] [place] [id number] Oct, Mild acid reflux K21.9 [place] [address] [place] [id number] [address] [place] [address] Sep, Major depressive disorder, s glenny episode, in partial remission F32.4 and Long-term use of high-risk medication Z79.899 [place] [address] [place] [id number] [address] [place] [address] Aug, Encounter for immunization Z 23 [place] [address] [facility] [id number] [address] [place] [address] Jul, [place] [address] [place] [id number] [place] [address] Jun, Medicare annual wellness vis it, initial Z00.00 ; BMI 40.0-44.9, adult Z68.41 and Encounter for immunization Z23 [facility] [place] [address] [id number] [address] [place] [address] May, [facility] [place] [address] [facility] [id number] [address] [place] [phone] May, Encounter for immunization Z 23 [facility] [place] [address] [facility] [id number] [address] [place] [address] May, Major depression in partial remission F32.4 [place] [address] [facility] [id number] [address] [place] [address] Apr, Hearing loss H91.90 ; Encoun ter for immunization Z23 and Encounter for screening mammogram for breast cancer Z12.31 [place] [address] [facility] [id number] [address] [place] [address] Mar, Acquired hypothyroidism E03. 9 [place] [address] [facility] [id number] [address] [place] [id number] Jan, Acquired hypothyroidism E03. 9 [place] [address] [facility] [id number] [address] [place] [id number] Jan, Acute midline low back pain without sciatica M54.5 [place] [address] [facility] [id number] [address] [place] [address] Jan, Peripheral edema R60.9 [place] [address] [facility] [id number] [address] [place] [address] Jan, Major depression in partial remission F32.4 [place] [address] [facility] [id number] [address] [place] [address] Jan, Localized edema R60.0 [place] [address] [facility] [id number] [address] [place] [address] Nov, Pure hypercholesterolemia E7 8.0 [place] [address] [id number] [address] [place] [address] Nov, Pure hypercholesterolemia E7 8.0 [facility] [place] [address] [id number] [address] [place] [address] Nov, Peripheral edema R60.9 [facility] [place] [address] [id number] [address] [place] [address] Oct, Major depression in partial remission F32.4 [facility] [place] [address] [facility] [id number] [address] [place] [address] Aug, [facility] [place] [address] [id number] [address] [place] [phone] Aug, Elevated blood pressure read ing R03.0 [facility] [place] [address] [facility] [id number] [address] [place] [id number] Aug, [facility] [place] [address] [facility] [id number] [address] [place] [address] Jun, Major depression in partial remission F32.4 [facility] [place] [address] [id number] [address] [place] [id number] Apr, Major depressive disorder, r ecurrent episode, mild F33.0 [place] [address] [facility] [id number] [address] [place] [address] Mar, Encounter for well woman exa m with routine gynecological exam Z01.419 and Breast cancer screening Z12.39 [facility] [place] [address] [facility] [id number] [address] [place] [address] Jan, Hypothyroidism, unspecified type E03.9 [facility] [place] [address] [facility] [id number] [address] [place] [address] Jan, Major depressive disorder, r ecurrent episode, mild F33.0 [facility] [place] [address] [facility] [id number] [address] [place] [address] Jan, Abscess L02.91 [facility] [place] [address] [facility] [id number] [address] [place] [phone] Jan, Furuncle L02.92 [facility] [place] [address] [id number] [address] [place] [id number] 16 Jan, 2016 Major depression in partial remission F32.4 [facility] [place] [address] [id number] [address] [place] [id number] 13 Jan, 2016 Major depressive disorder, r ecurrent episode, mild F33.0 [facility] [address] [id number] [address] [place] [phone] 17 Dec, 2015 Acute bacterial conjunctivit is of left eye H10.022 [place] [address] [id number] [address] [place] [id number] 17 Dec, 2015 Major depressive disorder, r ecurrent episode, mild F33.0 [facility] [place] [address] [facility] [id number] [address] [place] [address] Nov, [facility] [place] [address] [facility] [id number] [address] [place] [id number] 19 Nov, 2015 Major depressive disorder, r ecurrent episode, mild F33.0 [facility] [place] [address] [id number] [address] [place] [id number] 18 Nov, 2015 Hearing loss H91.90 [facility] [place] [address] [facility] [id number] [address] [place] [id number] 17 Oct, 2015 Major depression in partial remission F32.4 [facility] [place] [address] [facility] [id number] [address] [place] [id number] 15 Oct, 2015 Pneumonia J18.9 [facility] [address] [facility] [id number] [address] [place] [id number] 10 Oct, 2015 Influenza A J10.1 ; Fever, u nspecified R50.9 ; Conjunctivitis H10.9 and Cough R05 [facility] [place] [address] [id number] [address] [place] [id number] 10 Oct, 2015 Major depressive disorder, r ecurrent episode, severe, with psychotic behavior F33.3 [facility] [place] [address] [facility] [id number] [address] [place] [id number] Aug, [facility] [place] [address] [facility] [id number] [address] [place] [address] Aug, Acquired hypothyroidism E03. 9 and Pure hypercholesterolemia E78.0 [facility] [place] [address] [facility] [id number] [address] [place] [id number] Aug, Major depressive disorder, r ecurrent episode, severe, with psychotic behavior F33.3 [facility] [place] [address] [facility] [id number] [address] [place] [id number] Jul, [facility] [place] [address] [facility] [id number] [address] [place] [id number] Jul, Major depressive disorder, r ecurrent episode, severe, with psychotic behavior F33.3 [facility] [place] [address] [facility] [id number] [address] [place] [id number] Jun, Major depressive disorder, r ecurrent episode, severe, with psychotic behavior F33.3 [facility] [place] [address] [facility] [id number] [address] [place] [phone] May, [facility] [place] [address] [facility] [id number] [address] [place] [id number] May, Major depressive disorder, r ecurrent episode, severe, with psychotic behavior F33.3 [facility] [place] [address] [facility] [id number] [address] [place] [id number] May, Major depressive disorder, r ecurrent episode, severe, with psychotic behavior F33.3 [facility] [place] [address] [facility] [id number] [address] [place] [address] Apr, [facility] [place] [address] [facility] [id number] [address] [place] [id number] Apr, Depressive disorder, not els ewhere classified 311 and Unspecified psychosis 298.9 [facility] [place] [address] [facility] [id number] [address] [place] [id number] Apr, Depression 311 and Hard of h earing 389.9 [facility] [place] [address] [facility] [id number] [address] [place] [id number] 10 Apr, 2015 Schizoaffective disorder 295 .70 [facility] [place] [address] [facility] [id number] [address] [place] [id number] 08 Apr, 2015 Major depressive disorder, r ecurrent episode, severe, specified as with psychotic behavior 296.34 [facility] [place] [address] [facility] [id number] [address] [place] [id number] Apr, Psychosis 298.9 and Depressi on 311 [facility] [place] [address] [facility] [id number] [address] [place] [id number] Apr, Depressive disorder, not els ewhere classified 311 and Unspecified psychosis 298.9 [place] [address] [place] [id number] [address] [place] [id number] Mar, Screening for cervical cance r V76.2 ; Well woman exam with routine gynecological exam V72.31 ; Colon cancer screening V76.51 ; Breast cancer screening V76.10 ; Irritable bowel syndrome 564.1 and Psychosis 298.9 [facility] [place] [address] [facility] [id number] [address] [place] [id number] Mar, Psychosis 298.9 [facility] [place] [address] [facility] [id number] [address] [place] [id number] Mar, Unspecified psychosis 298.9 [facility] [place] [address] [facility] [id number] [address] [place] [id number] Nov, [facility] [place] [address] [facility] [id number] [address] [place] [address] Nov, [facility] [place] [address] [place] [id number] [address] [place] [id number] Oct, [facility] [place] [address] [facility] [id number] [address] [place] [id number] Oct, [facility] [place] [address] [place] [id number] [address] [place] [address] Jul, [facility] [address] [id number] [facility] [place] [address] Jul, [facility] [address] [id number] [address] [place] [address], [place] [address] May, [facility] [address] [id number] [address] [place] [address], [place] [address] Apr, [facility] [address] [id number] [address] [place] [address], [place] [address] Apr, [facility] [address] [id number] [address] [place] [address], [place] [address] Apr, [facility] [address] [id number] [address] [place] [address], [place] [address] Apr, [facility] [address] [id number] [address] [place] [address], [place] [address] Apr, [facility] [address] [id number] [address] [place] [address], [place] [address] Mar, [facility] [address] [id number] [address] [place] [address], [place] [address] Mar, [facility] [address] [id number] [address] [place] [address], [place] [address] Mar, [facility] [address] [id number] [address] [place] [address], [place] [address] Mar, [facility] [address] [id number] [address] [place] [address], [place] [address] Mar, [facility] [address] [id number] [address] [place] [address], [place] [address] Mar, [facility] [address] [id number] [address] [place] [address], [place] [address] Mar, [facility] [address] [id number] [address] [place] [address], [place] [address] Mar, [facility] [address] [id number] [address] [place] [address], [place] [address] Mar, [facility] [address] [id number] [address] [place] [address], [place] [address] Mar, [facility] [address] [id number] [address] [place] [address], [place] [address] Jan, [facility] [address] [id number] [address] [place] [address], [place] [address] Jan, [facility] [address] [id number] [address] [place] [address], [place] [address] December, [facility] [address] [id number] [address] [place] [address], [place] [address] December, [facility] [address] [id number] [address] [place] [address], [place] [address] Nov, [facility] [address] [id number] [address] [place] [address], [place] [address] Nov, [facility] [address] [id number] [address] [place] [address], [place] [address] Sep, [facility] [address] [id number] [address] [place] [address], [place] [address] Sep, [facility] [address] [id number] [address] [place] [address], [place] [address] Sep, [facility] [address] [id number] [address] [place] [address], [place] [address] Sep, [facility] [address] [id number] [address] [place] [address], [place] [address] Jun, [facility] [address] [id number] [address] [place] [address], [place] [address] Jun, [facility] [address] [id number] [address] [place] [address], [place] [address] Jun, [facility] [address] [id number] [address] [place] [address], [place] [address] Jun, [facility] [address] [id number] [address] [place] [address], [place] [address] May, [facility] [address] [id number] [address] [place] [address], [place] [address] May, [facility] [address] [id number] [address] [place] [address], [place] [address] Apr, [facility] [address] [id number] [address] [place] [address], [place] [id number] Mar, [facility] [address] [id number] [address] [place] [address], [place] [address] Mar, [facility] [address] [id number] [address] [place] [address], [place] [address] Mar, [facility] [address] [id number] [address] [place] [address], [place] [address] Mar, [facility] [address] [id number] [address] [place] [address], [place] [address] Mar, [facility] [address] [id number] [address] [place] [address], [place] [address] Jan, [facility] [address] [id number] [address] [place] [address], [place] [address] Jan, [facility] [address] [id number] [address] [place] [address], [place] [address] Jan, [facility] [address] [id number] [address] [place] [address], [place] [address] December, [facility] [address] [id number] [address] [place] [address], [place] [address] Oct, [facility] [address] [id number] [address] [place] [address], [place] [address] Oct, [facility] [address] [id number] [address] [place] [address], [place] [address] Oct, [facility] [address] [id number] [address] [place] [address], [place] [address] Oct, [facility] [address] [id number] [address] [place] [address], [place] [address] Aug, [facility] [address] [id number] [address] [place] [address], [place] [address] Jun, [facility] [address] [id number] [address] [place] [address], [place] [address] Jun, [facility] [address] [id number] [address] [place] [address], [place] [id number] Jun, [facility] [address] [id number] [address] [place] [address], [place] [address] Jun, [facility] [address] [id number] [address] [place] [address], [place] [id number] May, [facility] [address] [id number] [address] [place] [address], [place] [id number] Apr, [facility] [address] [id number] [address] [place] [address], [place] [id number] Mar, [facility] [address] [id number] [address] [place] [address], [place] [id number] Jan, [facility] [address] [id number] [address] [place] [address], [place] [id number] Jan, [facility] [address] [id number] [address] [place] [address], [place] [id number] December, [facility] [address] [id number] [address] [place] [address], [place] [address] December, [facility] [address] [id number] [address] [place] [address], [place] [address] December, [facility] [address] [id number] [address] [place] [address], [place] [address] December, [facility] [address] [id number] [address] [place] [address], [place] [address] Nov, [facility] [address] [id number] [address] [place] [id number] Oct, [facility] [place] [address] [id number] [address] [place] [id number] Sep, [facility] [place] [address] [id number] [address] [place] [id number] Sep, [facility] [place] [address] [id number] [address] [place] [id number] Sep, [facility] [place], [facility] [address] [id number] [address] [place] [id number] Sep, [facility] [place], [facility] [address] [id number] [address] [place] [id number] Aug, [facility] [place] [address] [id number] [address] [place] [id number] Jun, [facility] [place] BY [facility] [address] [id number] [address] [place] [phone] May, [facility], [place], [facility] [address] [id number] [address] [place] [id number] Mar, [facility], [place], [facility] [address] [id number] [address] [place] [phone] Jun, [facility], [place], [facility] [address] [id number] [address] [place] [phone] May, [facility], [place], [facility] [address] [id number] [address] [place] [phone] May, IMMUNIZATIONS No Known Immunizations SOCIAL HISTORY Never Assessed REASON FOR VISIT Jay SARGENT PLAN OF CARE Activity Details Follow Up 6 Months Reason:BP Future/Pending Procedure ROUTINE VENIPUNCTURE VITAL SIGNS Height 65 in 2017-11-09 Weight 240.1 lbs 2017-11-09 Temperature 97.6 degrees Fahrenheit 2017-11-09 Heart Rate 68 bpm 2017-11-09 Respiratory Rate 18 2017-11-09 BMI 39.95 kg/m2 2017-11-09 Blood pressure systolic 118 mmHg 2017-11-09 Blood pressure diastolic 76 mmHg 2017-11-09 MEDICATIONS Medication Instructions Dosage Frequency Start Date End Date Duration S mark Lovastatin 20 MG TAKE ONE TABLET BY MOUTH ONCE DAILY 90 Active Aripiprazole 10 mg Orally at bedtime 1 tablet Active Fluoxetine HCl 10 MG TAKE THREE CAPSULES BY MOUTH IN THE MORNING Active Bentyl 10 MG Orally Four times a day befo re meals and at bedtime for urgency with bowel movements 1 capsule 30 Acti ve Lasix 40 mg Orally twice a day in AM and noon 1 tablet Jan, 017 05 days Active Zantac 150 MG Orally twice a day 1 tablet 12h Oct, 9 0 days Active Trazodone HCl 50 MG TAKE ONE TABLET BY MOUTH ONC E DAILY AT BEDTIME FOR SLEEP 30 Active Levothyroxine Sodium 125 MCG TAKE ONE TABLET BY MOUTH ONCE DAILY 90 Active RESULTS No Results PROCEDURES Procedure Date Ordered Result Body Site LAB [facility] November 09, 2017 PETROS, ROUTINE* November 09, 2017 [facility] VISIT ESTABLISHED PATIENT November 09, 2017 INSTRUCTIONS MEDICATIONS ADMINISTERED No Known Medications MEDICAL (GENERAL) HISTORY Type Description Date Medical History depression Medical History hypothryroidism Medical History hyperlipidemia Medical History trauma: Stroke - with L side faci al drooping Surgical History hysterectomy Surgical History cholecystectomy Surgical History gall bladder removal Hospitalization History surgeries Hospitalization History stroke
--- OUTSIDE RECORDS SUMMARY | 2020-02-21 11:51 | XMS REPORT ---
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 49176296 Problem Hearing loss of both ears H91.93 Acti ve 13916353 Problem Acquired hypothyroidism E03.9 Active 586273851 Problem Pure hypercholesterolemia E78.0 Acti ve 158422160 Problem Major depressive disorder, recurrent episode, mild F33.0 Active 016113921 Problem Other chronic pain G89.29 Active 8 8130908 Problem Gastroesophageal reflux disease without esophagitis K21.9 Active 964316752 Problem Hearing loss H91.90 Active 6922217 1 Problem Edema, unspecified type R60.9 Active 869854373 Problem Mild acid reflux K21.9 Active 235 001150 Problem Medicare welcome exam Z00.00 Active [id number] ALLERGIES No Information ENCOUNTERS Encounter Location Date Diagnosis [facility] [address] [facility] [id number] [address] [place] [address] Apr, [facility] [address] [facility] [id number] [address] [place] [address] Mar, [facility] [address] [facility] [id number] [address] [place] [address] Mar, [facility] [address] [facility] [id number] [address] [place] [address] Mar, Acquired hypothyroidism E03. 9 [facility] [address] [facility] [id number] [address] [place] [address] Mar, Pain in left knee M25.562 ; Other chronic pain G89.29 and Gastroesophageal reflux disease without esophagitis K21.9 [facility] [address] [place] [id number] [address] [place] [address] Jan, [facility] [address] [place] [id number] [address] [place] [address] Jan, Acquired hypothyroidism E03. 9 [facility] [address] [place] [id number] [place] [address] Jan, [place] [address] [address] Jan, Acquired hypothyroidism E03. 9 [place] [address] [place] [id number] [place] [address] December, Major depressive disorder in full remission, unspecified whether recurrent F32.5 [place] [address] [place] [id number] [place] [address] Nov, Acquired hypothyroidism E03. 9 [place] [address] [place] [address] Nov, Pure hypercholesterolemia E7 8.0 ; Peripheral edema R60.9 and Acquired hypothyroidism E03.9 [place] [address] [place] [id number] [address] [place] [address] Oct, Mild acid reflux K21.9 [place] [address] [place] [id number] [address] [place] [address] Sep, Major depressive disorder, s glenny episode, in partial remission F32.4 and Long-term use of high-risk medication Z79.899 [place] [address] [place] [id number] [address] [place] [address] Aug, Encounter for immunization Z 23 [place] [address] [place] [id number] [address] [place] [address] Jul, [place] [address] [place] [id number] [address] [place] [address] Jun, Medicare annual wellness vis it, initial Z00.00 ; BMI 40.0-44.9, adult Z68.41 and Encounter for immunization Z23 [place] [address] [facility] [id number] [address] [place] [address] May, [place] [address] [place] [id number] [address] [place] [address] May, Encounter for immunization Z 23 [place] [address] [facility] [id number] [address] [place] [address] May, Major depression in partial remission F32.4 [place] [address] [place] [id number] [place] [address] Apr, Hearing loss H91.90 ; Encoun ter for immunization Z23 and Encounter for screening mammogram for breast cancer Z12.31 [place] [address] [place] [id number] [address] [place] [address] Mar, Acquired hypothyroidism E03. 9 [place] [address] [facility] [id number] [address] [place] [address] Jan, Acquired hypothyroidism E03. 9 [place] [address] [facility] [id number] [address] [place] [address] Jan, Acute midline low back pain without sciatica M54.5 [place] [address] [facility] [id number] [address] [place] [address] Jan, Peripheral edema R60.9 [place] [address] [facility] [id number] [address] [place] [address] Jan, Major depression in partial remission F32.4 [place] [address] [facility] [id number] [address] [place] [address] Jan, Localized edema R60.0 [place] [address] [facility] [id number] [address] [place] [address] Nov, Pure hypercholesterolemia E7 8.0 [place] [address] [id number] [address] [place] [address] Nov, Pure hypercholesterolemia E7 8.0 [facility] [address] [id number] [address] [place] [address] Nov, Peripheral edema R60.9 [facility] [address] [id number] [address] [place] [address] Oct, Major depression in partial remission F32.4 [facility] [address] [id number] [address] [place] [address] Aug, [facility] [address] [id number] [address] [place] [address] Aug, Elevated blood pressure read ing R03.0 [facility] [address] [facility] [id number] [address] [place] [address] Aug, [facility] [address] [facility] [id number] [address] [place] [address] Jun, Major depression in partial remission F32.4 [facility] [address] [facility] [id number] [address] [place] [address] Apr, Major depressive disorder, r ecurrent episode, mild F33.0 [facility] [address] [facility] [id number] [address] [place] [address] Mar, Encounter for well woman exa m with routine gynecological exam Z01.419 and Breast cancer screening Z12.39 [facility] [address] [facility] [id number] [address] [place] [address] Jan, Hypothyroidism, unspecified type E03.9 [facility] [address] [facility] [id number] [address] [place] [address] Jan, Major depressive disorder, r ecurrent episode, mild F33.0 [facility] [address] [facility] [id number] [address] [place] [address] Jan, Abscess L02.91 [facility] [address] [id number] [address] [place] [address] 22 Jan, 2016 Furuncle L02.92 [place] [address] [facility] [id number] [address] [place] [address] 16 Jan, 2016 Major depression in partial remission F32.4 [facility] [address] [facility] [id number] [address] [place] [address] 13 Jan, 2016 Major depressive disorder, r ecurrent episode, mild F33.0 [facility] [address] [facility] [id number] [address] [place] [address] December, Acute bacterial conjunctivit is of left eye H10.022 [place] [address] [facility] [id number] [address] [place] [address] December, Major depressive disorder, r ecurrent episode, mild F33.0 [place] [address] [facility] [id number] [address] [place] [address] Nov, [place] [address] [facility] [id number] [address] [place] [address] Nov, Major depressive disorder, r ecurrent episode, mild F33.0 [place] [address] [facility] [id number] [address] [place] [address] 18 Nov, 2015 Hearing loss H91.90 [facility] [address] [facility] [id number] [address] [place] [address] 17 Oct, 2015 Major depression in partial remission F32.4 [facility] [address] [facility] [id number] [address] [place] [address] 15 Oct, 2015 Pneumonia J18.9 [facility] [address] [facility] [id number] [address] [place] [address] 10 Oct, 2015 Influenza A J10.1 ; Fever, u nspecified R50.9 ; Conjunctivitis H10.9 and Cough R05 [facility] [address] [facility] [id number] [address] [place] [address] 10 Oct, 2015 Major depressive disorder, r ecurrent episode, severe, with psychotic behavior F33.3 [facility] [address] [facility] [id number] [address] [place] [address] Aug, [facility] [address] [facility] [id number] [address] [place] [address] Aug, Acquired hypothyroidism E03. 9 and Pure hypercholesterolemia E78.0 [facility] [address] [facility] [id number] [address] [place] [address] Aug, Major depressive disorder, r ecurrent episode, severe, with psychotic behavior F33.3 [facility] [address] [facility] [id number] [address] [place] [id number] Jul, [facility] [address] [facility] [id number] [address] [place] [address] Jul, Major depressive disorder, r ecurrent episode, severe, with psychotic behavior F33.3 [facility] [address] [place] [id number] [address] [place] [address] Jun, Major depressive disorder, r ecurrent episode, severe, with psychotic behavior F33.3 [facility] [address] [facility] [id number] [address] [place] [address] May, [facility] [address] [facility] [id number] [address] [place] [address] May, Major depressive disorder, r ecurrent episode, severe, with psychotic behavior F33.3 [facility] [address] [facility] [id number] [address] [place] [address] May, Major depressive disorder, r ecurrent episode, severe, with psychotic behavior F33.3 [facility] [address] [facility] [id number] [address] [place] [address] Apr, [facility] [address] [facility] [id number] [address] [place] [address] Apr, Depressive disorder, not els ewhere classified 311 and Unspecified psychosis 298.9 [facility] [address] [facility] [id number] [address] [place] [address] Apr, Depression 311 and Hard of h earing 389.9 [facility] [address] [facility] [id number] [address] [place] [address] 10 Apr, 2015 Schizoaffective disorder 295 .70 [facility] [address] [facility] [id number] [address] [place] [address] 08 Apr, 2015 Major depressive disorder, r ecurrent episode, severe, specified as with psychotic behavior 296.34 [facility] [address] [facility] [id number] [address] [place] [address] Apr, Psychosis 298.9 and Depressi on 311 [facility] [address] [facility] [id number] [address] [place] [address] Apr, Depressive disorder, not els ewhere classified 311 and Unspecified psychosis 298.9 [facility] [address] [place] [id number] [address] [place] [address] Mar, Screening for cervical cance r V76.2 ; Well woman exam with routine gynecological exam V72.31 ; Colon cancer screening V76.51 ; Breast cancer screening V76.10 ; Irritable bowel syndrome 564.1 and Psychosis 298.9 [facility] [address] [facility] [id number] [address] [place] [address] Mar, Psychosis 298.9 [facility] [address] [place] [id number] [address] [place] [address] Mar, Unspecified psychosis 298.9 [facility] [address] [facility] [id number] [address] [place] [address] Nov, [facility] [address] [facility] [id number] [address] [place] [address] Nov, [facility] [address] [place] [id number] [address] [place] [address] Oct, [facility] [address] [place] [id number] [address] [place] [address] Oct, [facility] [address] [id number] [address] [place] [address], [place] [address] Jul, [facility] [address] [id number] [address] [place] [address], [place] [address] Jul, [facility] [address] [id number] [address] [place] [address], [place] [address] May, [facility] [address] [id number] [address] [place] [address], [place] [address] Apr, [facility] [address] [id number] [address] [place] [address], [place] [address] Apr, [facility] [address] [id number] [address] [place] [address], [place] [address] Apr, [facility] [address] [id number] [address] [place] [address], [place] [address] Apr, [facility] [address] [id number] [address] [place] [address], [place] [address] Apr, [facility] [address] [id number] [address] [place] [address], [place] [address] Mar, [facility] [address] [id number] [address] [place] [address], [place] [address] Mar, [facility] [address] [id number] [address] [place] [address], [place] [address] Mar, [facility] [address] [id number] [address] [place] [address], [place] [address] Mar, [facility] [address] [id number] [address] [place] [address], [place] [address] Mar, [facility] [address] [id number] [address] [place] [address], [place] [address] Mar, [facility] [address] [id number] [address] [place] [address], [place] [address] Mar, [facility] [address] [id number] [address] [place] [address], [place] [address] Mar, [facility] [address] [id number] [address] [place] [address], [place] [address] Mar, [facility] [address] [id number] [address] [place] [address], [place] [address] Mar, [facility] [address] [id number] [address] [place] [address], [place] [address] Jan, [facility] [address] [id number] [address] [place] [address], [place] [address] Jan, [facility] [address] [id number] [address] [place] [address], [place] [address] December, [facility] [address] [id number] [address] [place] [address], [place] [address] December, [facility] [address] [id number] [address] [place] [address], [place] [address] Nov, [facility] [address] [id number] [address] [place] [address], [place] [address] Nov, [facility] [address] [id number] [address] [place] [address], [place] [address] Sep, [facility] [address] [id number] [address] [place] [address], [place] [address] Sep, [facility] [address] [id number] [address] [place] [address], [place] [address] Sep, [facility] [address] [id number] [address] [place] [address], [place] [address] Sep, [facility] [address] [id number] [address] [place] [address], [place] [address] Jun, [facility] [address] [id number] [address] [place] [address], [place] [address] Jun, [facility] [address] [id number] [address] [place] [address], [place] [address] Jun, [facility] [address] [id number] [address] [place] [address] Jun, [facility] [address] [id number] [address] [place] [address], [place] [address] May, [facility] [address] [id number] [address] [place] [address], [place] [address] May, [facility] [address] [id number] [address] [place] [address], [place] [address] Apr, [facility] [address] [id number] [address] [place] [address], [place] [address] Mar, [facility] [address] [id number] [address] [place] [address], [place] [address] Mar, [facility] [address] [id number] [address] [place] [address], [place] [address] Mar, [facility] [address] [id number] [address] [place] [address], [place] [address] Mar, [facility] [address] [id number] [address] [place] [address], [place] [address] Mar, [facility] [address] [id number] [address] [place] [address], [place] [address] Jan, [facility] [address] [id number] [address] [place] [address], [place] [address] Jan, [facility] [address] [id number] [address] [place] [address], [place] [address] Jan, [facility] [address] [id number] [address] [place] [address], [place] [address] December, [facility] [address] [id number] [address] [place] [address], [place] [address] Oct, [facility] [address] [id number] [address] [place] [address], [place] [address] Oct, [facility] [address] [id number] [address] [place] [address], [place] [address] Oct, [facility] [address] [id number] [address] [place] [address], [place] [address] Oct, [facility] [address] [id number] [address] [place] [address], [place] [address] Aug, [facility] [address] [id number] [address] [place] [address], [place] [address] Jun, [facility] [address] [id number] [address] [place] [address], [place] [address] Jun, [facility] [address] [id number] [address] [place] [address], [place] [address] Jun, [facility] [address] [id number] [address] [place] [address], [place] [address] Jun, [facility] [address] [id number] [address] [place] [address], [place] [address] May, [facility] [address] [id number] [address] [place] [address], [place] [address] Apr, [facility] [address] [id number] [address] [place] [address], [place] [address] Mar, [facility] [address] [id number] [address] [place] [address], [place] [address] Jan, [facility] [address] [id number] [address] [place] [address], [place] [address] Jan, [facility] [address] [id number] [address] [place] [address], [place] [address] December, [facility] [address] [id number] [address] [place] [address], [place] [address] December, [facility] [address] [id number] [address] [place] [address], [place] [address] December, [facility] [address] [id number] [address] [place] [address], [place] [address] December, [facility] [address] [id number] [address] [place] [address] [address] Nov, [facility] [address] [id number] [address] [place] [id number] Oct, [facility] [address] [id number] [address] [place] [phone] Sep, [facility] [address] [id number] [address] [place] [phone] Sep, [facility] [address] [id number] [address] [place] [phone] Sep, [facility] [address] [id number] [address] [place] [phone] Sep, [facility] [address] [id number] [address] [place] [phone] Aug, [facility] [address] [id number] [address] [place] [phone] Jun, [facility] [address] [id number] [address] [place] [id number] May, [facility] [address] [id number] [address] [place] [phone] Mar, [facility] [address] [id number] [address] [place] [phone] Jun, [facility] [address] [id number] [address] [place] [phone] May, [facility] [address] [id number] [address] [place] [phone] May, IMMUNIZATIONS No Known Immunizations SOCIAL HISTORY Never Assessed REASON FOR VISIT BH f/u MAGDI[facility] PLAN OF CARE Activity Details Follow Up 3 Months Reason: VITAL SIGNS Height 65 in 2017-12-31 Weight 239 lbs 2017-12-31 Heart Rate 64 bpm 2017-12-31 Respiratory Rate 18 2017-12-31 BMI 39.77 kg/m2 2017-12-31 Blood pressure systolic 128 mmHg 2017-12-31 Blood pressure diastolic 78 mmHg 2017-12-31 MEDICATIONS Medication Instructions Dosage Frequency Start Date End Date Duration S mark Zantac 150 MG Orally twice a day 1 tablet 12h 22 Oct, 2017 9 0 days Active Lovastatin 20 MG TAKE ONE TABLET BY MOUTH ONCE DAILY 90 Active Bentyl 10 MG Orally Four times a day befo re meals and at bedtime for urgency with bowel movements 1 capsule 30 Acti ve Lasix 40 mg Orally twice a day in AM and noon 1 tablet Jan, 017 05 days Active Aripiprazole 5 MG Orally at bedtime 1 tablet Active Levothyroxine Sodium 137 MCG Orally Once a day 1 tablet on an empty stomach 24h 30 days Active Fluoxetine HCl 10 MG TAKE THREE CAPSULES BY MOUTH ONCE DAILY IN THE MORNING Active Trazodone HCl 50 MG TAKE ONE TABLET BY MOUTH ONC E DAILY AT BEDTIME FOR SLEEP Active RESULTS No Results PROCEDURES Procedure Date Ordered Result Body Site [facility] VISIT ESTABLISHED PATIENT December 31, 2017 INSTRUCTIONS MEDICATIONS ADMINISTERED No Known Medications MEDICAL (GENERAL) HISTORY Type Description Date Medical History depression Medical History hypothryroidism Medical History hyperlipidemia Medical History trauma: Stroke - with L side faci al drooping Surgical History hysterectomy Surgical History cholecystectomy Surgical History gall bladder removal Hospitalization History surgeries Hospitalization History stroke
--- OUTSIDE RECORDS SUMMARY | 2020-02-21 11:51 | XMS REPORT ---
Author Author Tarik POTTS Organization [facility] Address [address] [place] [address] Care Team Providers Care Soap Maker Name Role Phone ROMA POTTS Unavailable PROBLEMS Type Condition ICD9-CM Code [id number] Code Onset Dates Condition S tatus SNOMED Code Problem Pure hypercholesterolemia E78.0 Acti ve 198383961 Problem Major depression in partial remission F32.4 Active 77427634 Problem Major depressive disorder, recurrent episode, mild F33.0 Active 255685384 Problem Hearing loss of both ears H91.93 Acti ve 48557818 Problem Acquired hypothyroidism E03.9 Active 840105300 Problem Mild acid reflux K21.9 Active 235 955587 Problem Medicare welcome exam Z00.00 Active 701915552 Problem Calcaneal spur, unspecified laterality M77.30 Active 41838330 Problem Talipes varus, 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 04494861 Problem Hearing loss H91.90 Active 6854928 1 Problem Edema, unspecified type R60.9 Active 077462225 ALLERGIES No Information ENCOUNTERS Encounter Location Date Diagnosis [facility] [address] [facility] [id number] [address] [place] [id number] Mar, [facility] [address] [facility] [id number] [address] [place] [phone] Mar, [facility] [address] [facility] [id number] [address] [place] [phone] Mar, [facility] [address] [facility] [id number] [address] [place] [phone] Jan, [facility] [address] [facility] [id number] [address] [place] [id number] Jan, Acquired hypothyroidism E03. 9 [facility] [address] [place] [id number] [address] [place] [id number] Jan, [facility] [address] [facility] [id number] [address] [place] [phone] Jan, Acquired hypothyroidism E03. 9 [facility] [address] [facility] [id number] [address] [place] [phone] December, Major depressive disorder in full remission, unspecified whether recurrent F32.5 [place] [address] [facility] [id number] [address] [place] [phone] Nov, Acquired hypothyroidism E03. 9 [place] [address] [facility] [id number] [place] [phone] Nov, Pure hypercholesterolemia E7 8.0 ; Peripheral edema R60.9 and Acquired hypothyroidism E03.9 [place] [address] [place] [id number] [address] [place] [id number] Oct, Mild acid reflux K21.9 [place] [address] [place] [id number] [address] [place] [id number] Sep, Major depressive disorder, s glenny episode, in partial remission F32.4 and Long-term use of high-risk medication Z79.899 [place] [address] [place] [id number] [address] [place] [address] Aug, Encounter for immunization Z 23 [place] [address] [place] [id number] [address] [place] [phone] Jul, [place] [address] [place] [id number] [place] [address] Jun, Medicare annual wellness vis it, initial Z00.00 ; Encounter for immunization Z23 and BMI 40.0-44.9, adult Z68.41 [place] [address] [place] [id number] [address] [place] [phone] May, [place] [address] [place] [id number] [address] [place] [id number] May, Encounter for immunization Z 23 [facility] [address] [id number] [address] [place] [id number] 10 May, 2017 Major depression in partial remission F32.4 [facility] [address] [facility] [id number] [address] [place] [phone] 11 Apr, 2017 Hearing loss H91.90 ; Encoun ter for immunization Z23 and Encounter for screening mammogram for breast cancer Z12.31 [facility] [address] [facility] [id number] [address] [place] [phone] Mar, Acquired hypothyroidism E03. 9 [place] [address] [facility] [id number] [address] [place] [phone] Jan, Acquired hypothyroidism E03. 9 [place] [address] [facility] [id number] [address] [place] [phone] Jan, Acute midline low back pain without sciatica M54.5 [place] [address] [facility] [id number] [address] [place] [phone] Jan, Peripheral edema R60.9 [place] [id number] [facility] [id number] [address] [place] [phone] Jan, Major depression in partial remission F32.4 [place] [id number] [facility] [id number] [address] [place] [phone] Jan, Localized edema R60.0 [place] [address] [facility] [id number] [address] [place] [phone] Nov, Pure hypercholesterolemia E7 8.0 [place] [address] [id number] [address] [place] [phone] Nov, Pure hypercholesterolemia E7 8.0 [place] [id number] [facility] [id number] [address] [place] [phone] Nov, Peripheral edema R60.9 [facility] [address] [facility] [id number] [address] [place] [phone] Oct, Major depression in partial remission F32.4 [facility] [address] [facility] [id number] [address] [place] [phone] Aug, [facility] [address] [facility] [id number] [address] [place] [phone] Aug, Elevated blood pressure read ing R03.0 [facility] [address] [facility] [id number] [address] [place] [phone] Aug, [facility] [address] [facility] [id number] [address] [place] [phone] Jun, Major depression in partial remission F32.4 [facility] [address] [facility] [id number] [address] [place] [phone] Apr, Major depressive disorder, r ecurrent episode, mild F33.0 [facility] [address] [facility] [id number] [address] [place] [phone] Mar, Encounter for well woman exa m with routine gynecological exam Z01.419 and Breast cancer screening Z12.39 [facility] [address] [facility] [id number] [address] [place] [phone] Jan, Hypothyroidism, unspecified type E03.9 [facility] [address] [facility] [id number] [address] [place] [phone] Jan, Major depressive disorder, r ecurrent episode, mild F33.0 [facility] [address] [facility] [id number] [address] [place] [phone] 30 Jan, 2016 Abscess L02.91 [place] [id number] [facility] [id number] [address] [place] [phone] Jan, Furuncle L02.92 [place] [address] [facility] [id number] [address] [place] [phone] 16 Jan, 2016 Major depression in partial remission F32.4 [facility] [address] [facility] [id number] [address] [place] [phone] 13 Jan, 2016 Major depressive disorder, r ecurrent episode, mild F33.0 [facility] [address] [facility] [id number] [address] [place] [phone] December, Acute bacterial conjunctivit is of left eye H10.022 [place] [address] [address] December, Major depressive disorder, r ecurrent episode, mild F33.0 [facility] [address] [address] Nov, [place] [address] [address] Nov, Major depressive disorder, r ecurrent episode, mild F33.0 [place] [address] [address] Nov, Hearing loss H91.90 [place] [address] [address] Oct, Major depression in partial remission F32.4 [place] [address] [address] Oct, Pneumonia J18.9 [facility] [address] [address] Oct, Influenza A J10.1 ; Fever, u nspecified R50.9 ; Conjunctivitis H10.9 and Cough R05 [place] [id number] [place] [phone] Oct, Major depressive disorder, r ecurrent episode, severe, with psychotic behavior F33.3 [place] [id number] [place] [phone] Aug, [place] [address] [address] Aug, Acquired hypothyroidism E03. 9 and Pure hypercholesterolemia E78.0 [place] [address] [place] [id number] [address] [place] [phone] Aug, Major depressive disorder, r ecurrent episode, severe, with psychotic behavior F33.3 [facility] [address] [facility] [id number] [address] [place] [phone] Jul, [facility] [address] [facility] [id number] [address] [place], [place] [address] Jul, Major depressive disorder, r ecurrent episode, severe, with psychotic behavior F33.3 [facility] [address] [facility] [id number] [address] [place] [phone] Jun, Major depressive disorder, r ecurrent episode, severe, with psychotic behavior F33.3 [facility] [address] [facility] [id number] [address] [place] [phone] May, [facility] [address] [facility] [id number] [address] [place] [phone] May, Major depressive disorder, r ecurrent episode, severe, with psychotic behavior F33.3 [facility] [address] [facility] [id number] [address] [place] [phone] May, Major depressive disorder, r ecurrent episode, severe, with psychotic behavior F33.3 [facility] [address] [facility] [id number] [address] [place] [phone] Apr, [facility] [address] [place] [id number] [address] [place] [phone] Apr, Depressive disorder, not els ewhere classified 311 and Unspecified psychosis 298.9 [facility] [address] [facility] [id number] [address] [place] [phone] 29 Apr, 2015 Depression 311 and Hard of h earing 389.9 [facility] [address] [facility] [id number] [address] [place] [phone] 10 Apr, 2015 Schizoaffective disorder 295 .70 [facility] [address] [place] [id number] [address] [place] [id number] 08 Apr, 2015 Major depressive disorder, r ecurrent episode, severe, specified as with psychotic behavior 296.34 [facility] [address] [place] [id number] [address] [place] [phone] Apr, Psychosis 298.9 and Depressi on 311 [facility] [address] [id number] [address] [place] [phone] Apr, Depressive disorder, not els ewhere classified 311 and Unspecified psychosis 298.9 [facility] [address] [facility] [id number] [address] [place] [phone] Mar, Screening for cervical cance r V76.2 ; Well woman exam with routine gynecological exam V72.31 ; Colon cancer screening V76.51 ; Breast cancer screening V76.10 ; Irritable bowel syndrome 564.1 and Psychosis 298.9 [facility] [address] [id number] [address] [place] [phone] Mar, Psychosis 298.9 [facility] [address] [facility] [id number] [address] [place] [address] Mar, Unspecified psychosis 298.9 [facility] [address] [id number] [address] [place] [phone] Nov, [facility] [address] [id number] [address] [place] [phone] Nov, [facility] [address] [facility] [id number] [address] [place] [phone] Oct, [facility] [address] [id number] [address] [place] [phone] Oct, [facility] [address] [id number] [address] [place] [phone] Jul, [facility] [address] [id number] [address] [place] [phone] Jul, [facility] [address] [facility] [id number] [address] [place] [phone] May, [facility] [address] [facility] [id number] [address] [place] [phone] Apr, [facility] [address] [id number] [facility] [place] [address] 11 Apr, 2013 [facility] [address] [id number] [facility] [place] [address] 05 Apr, 2013 [facility] [address] [id number] [facility] [place] [address] 05 Apr, 2014 [facility] [address] [id number] [facility] [place] [address] Apr, [facility] [address] [id number] [facility] [place] [address] Mar, [facility] [address] [id number] [address] [place] [address], [place] [address] Mar, [facility] [address] [id number] [address] [place] [address], [place] [address] Mar, [facility] [address] [id number] [address] [place] [address], [place] [address] Mar, [facility] [address] [id number] [address] [place] [address], [place] [address] Mar, [facility] [address] [id number] [address] [place] [address], [place] [address] Mar, [facility] [address] [id number] [address] [place] [address], [place] [address] Mar, [facility] [address] [id number] [address] [place] [address], [place] [address] Mar, [facility] [address] [id number] [address] [place] [address], [place] [address] Mar, [facility] [address] [id number] [address] [place] [address], [place] [id number] Mar, [facility] [address] [id number] [address] [place] [address], [place] [address] Jan, [facility] [address] [id number] [address] [place] [address], [place] [address] Jan, [facility] [address] [id number] [address] [place] [address], [place] [address] December, [facility] [address] [id number] [address] [place] [address], [place] [address] December, [facility] [address] [id number] [address] [place] [address], [place] [address] Nov, [facility] [address] [id number] [address] [place] [address], [place] [address] Nov, [facility] [address] [id number] [address] [place] [address], [place] [address] Sep, [facility] [address] [id number] [address] [place] [address], [place] [address] Sep, [facility] [address] [id number] [address] [place] [address], [place] [address] Sep, [facility] [address] [id number] [address] [place] [address], [place] [address] Sep, [facility] [address] [id number] [address] [place] [address], [place] [address] Jun, [facility] [address] [id number] [address] [place] [address], [place] [address] Jun, [facility] [address] [id number] [address] [place] [address], [place] [address] Jun, [facility] [address] [id number] [address] [place] [address], [place] [address] Jun, [facility] [address] [id number] [address] [place] [address], [place] [address] May, [facility] [address] [id number] [address] [place] [address], [place] [address] May, [facility] [address] [id number] [address] [place] [address], [place] [id number] Apr, [facility] [address] [id number] [address] [place] [address], [place] [address] Mar, [facility] [address] [id number] [address] [place] [address], [place] [address] Mar, [facility] [address] [id number] [address] [place] [address], [place] [address] Mar, [facility] [address] [id number] [address] [place] [address], [place] [id number] Mar, [facility] [address] [id number] [address] [place] [address], [place] [address] Mar, [facility] [address] [id number] [address] [place] [address], [place] [address] Jan, [facility] [address] [id number] [address] [place] [address], [place] [address] Jan, [facility] [address] [id number] [address] [place] [address], [place] [address] Jan, [facility] [address] [id number] [address] [place] [address], [place] [id number] December, [facility] [address] [id number] [address] [place] [address], [place] [address] Oct, [facility] [address] [id number] [address] [place] [address], [place] [id number] Oct, [facility] [address] [id number] [address] [place] [address], [place] [id number] Oct, [facility] [address] [id number] [address] [place] [address], [place] [address] Oct, [facility] [address] [id number] [address] [place] [address], [place] [id number] Aug, [facility] [address] [id number] [address] [place] [address], [place] [id number] Jun, [facility] [address] [id number] [address] [place] [address], [place] [address] Jun, [facility] [address] [id number] [address] [place] [address], [place] [address] Jun, [facility] [address] [id number] [address] [place] [address], [place] [id number] Jun, [facility] [address] [id number] [address] [place] [address], [place] [address] May, [facility] [address] [id number] [address] [place] [address], [place] [id number] Apr, [facility] [address] [id number] [address] [place] [address], [place] [id number] Mar, [facility] [address] [id number] [address] [place] [address], [place] [address] Jan, [facility] [address] [id number] [address] [place] [address], [place] [id number] Jan, [facility] [address] [id number] [address] [place] [address], [place] [address] December, [facility] [address] [id number] [address] [place] [address], [place] [id number] December, [facility] [address] [id number] [address] [place] [address], [place] [address] December, [facility] [address] [id number] [address] [place] [address], [place] [id number] December, [facility] [address] [id number] [address] [place] [address], [place] [id number] Nov, [facility] [address] [id number] [address] [place] [address], [place] [id number] Oct, [facility] [address] [id number] [address] [place] [address], [place] [id number] Sep, [facility] [address] [id number] [address] [place] [address], [place] [id number] Sep, [facility] [address] [id number] [address] [place] [id number] Sep, [facility] [address] [id number] [address] [place] [id number] Sep, [facility] [address] [id number] [address] [place] [id number] Aug, [facility] [address] [id number] [address] [place] [id number] Jun, [facility] [address] [id number] [address] [place] [id number] May, [facility] [address] [id number] [address] [place] [id number] Mar, [facility] [address] [id number] [address] [place] [id number] Jun, [facility] [address] [facility] [id number] [address] [place] [id number] May, [facility] [address] [id number] [address] [place] [id number] May, IMMUNIZATIONS No Known Immunizations SOCIAL HISTORY Never Assessed REASON FOR VISIT Medication Change PLAN OF CARE VITAL SIGNS MEDICATIONS Medication Instructions Dosage Frequency Start Date End Date Duration S tatus Zantac 150 MG Orally twice a day 1 tablet 12h Oct, 9 0 days Active RESULTS No Results PROCEDURES No Known [...]
--- OUTSIDE RECORDS SUMMARY | 2020-02-21 11:51 | XMS REPORT ---
Author Author Tarik POTTS Organization [facility] Address [address] [place] [address] Care Team Providers Care Cinder Pit Worker Name Role Phone ROMA POTTS Unavailable PROBLEMS Type Condition ICD9-CM Code ZWO22-YR Code Onset Dates Condition S tatus SNOMED Code Problem Pure hypercholesterolemia E78.0 Acti ve 422953258 Problem Major depression in partial remission F32.4 Active 66501051 Problem Major depressive disorder, recurrent episode, mild F33.0 Active 869450541 Problem Hearing loss of both ears H91.93 Acti ve 30592369 Problem Acquired hypothyroidism E03.9 Active 158252141 Problem Mild acid reflux K21.9 Active 235 200457 Problem Medicare welcome exam Z00.00 Active 687725085 Problem Calcaneal spur, unspecified laterality M77.30 Active 30469274 Problem Talipes varus, 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 87413245 Problem Hearing loss H91.90 Active 9734642 1 Problem Edema, unspecified type R60.9 Active [id number] ALLERGIES No Information ENCOUNTERS Encounter Location Date Diagnosis [facility] [address] [facility] [id number] [address] [place] [id number] Mar, [facility] [address] [facility] [id number] [address] [place] [address] Mar, [facility] [address] [facility] [id number] [address] [place] [address] Mar, [facility] [address] [facility] [id number] [address] [place] [address] Jan, [facility] [address] [facility] [id number] [address] [place] [address] Jan, Acquired hypothyroidism E03. 9 [facility] [address] [place] [id number] [address] [place] [id number] Jan, [facility] [address] [facility] [id number] [address] [place] [phone] Jan, Acquired hypothyroidism E03. 9 [facility] [address] [facility] [id number] [address] [place] [id number] December, Major depressive disorder in full remission, unspecified whether recurrent F32.5 [facility] [address] [facility] [id number] [address] [place] [address] Nov, Acquired hypothyroidism E03. 9 [place] [address] [facility] [id number] [place] [address] Nov, Pure hypercholesterolemia E7 8.0 ; Peripheral edema R60.9 and Acquired hypothyroidism E03.9 [place] [address] [place] [id number] [address] [place] [id number] Oct, Mild acid reflux K21.9 [place] [address] [place] [id number] [address] [place] [id number] Sep, Major depressive disorder, s glenny episode, in partial remission F32.4 and Long-term use of high-risk medication Z79.899 [place] [address] [place] [id number] [address] [place] [address] Aug, Encounter for immunization Z 23 [place] [address] [place] [id number] [address] [place] [address] Jul, [place] [address] [place] [id number] [place] [address] Jun, Medicare annual wellness vis it, initial Z00.00 ; BMI 40.0-44.9, adult Z68.41 and Encounter for immunization Z23 [place] [address] [place] [id number] [address] [place] [phone] May, [place] [address] [place] [id number] [address] [place] [address] May, Encounter for immunization Z 23 [facility] [address] [id number] [address] [place] [id number] 10 May, 2017 Major depression in partial remission F32.4 [facility] [address] [facility] [id number] [address] [place] [id number] 11 Apr, 2017 Hearing loss H91.90 ; Encoun ter for immunization Z23 and Encounter for screening mammogram for breast cancer Z12.31 [facility] [address] [facility] [id number] [address] [place] [id number] Mar, Acquired hypothyroidism E03. 9 [place] [address] [facility] [id number] [address] [place] [address] Jan, Acquired hypothyroidism E03. 9 [place] [address] [facility] [id number] [address] [place] [phone] Jan, Acute midline low back pain without sciatica M54.5 [place] [address] [facility] [id number] [address] [place] [phone] Jan, Peripheral edema R60.9 [place] [address] [facility] [id number] [address] [place] [id number] Jan, Major depression in partial remission F32.4 [place] [address] [facility] [id number] [address] [place] [address] Jan, Localized edema R60.0 [place] [address] [facility] [id number] [address] [place] [phone] Nov, Pure hypercholesterolemia E7 8.0 [place] [address] [id number] [address] [place] [phone] Nov, Pure hypercholesterolemia E7 8.0 [place] [address] [facility] [id number] [address] [place] [id number] Nov, Peripheral edema R60.9 [facility] [address] [facility] [id number] [address] [place] [id number] Oct, Major depression in partial remission F32.4 [facility] [address] [facility] [id number] [address] [place] [phone] Aug, [facility] [address] [facility] [id number] [address] [place] [id number] Aug, Elevated blood pressure read ing R03.0 [facility] [address] [facility] [id number] [address] [place] [address] Aug, [facility] [address] [facility] [id number] [address] [place] [address] Jun, Major depression in partial remission F32.4 [facility] [address] [facility] [id number] [address] [place] [address] Apr, Major depressive disorder, r ecurrent episode, mild F33.0 [facility] [address] [facility] [id number] [address] [place] [address] Mar, Encounter for well woman exa m with routine gynecological exam Z01.419 and Breast cancer screening Z12.39 [facility] [address] [facility] [id number] [address] [place] [id number] Jan, Hypothyroidism, unspecified type E03.9 [facility] [address] [facility] [id number] [address] [place] [address] Jan, Major depressive disorder, r ecurrent episode, mild F33.0 [facility] [address] [facility] [id number] [address] [place] [id number] 30 Jan, 2016 Abscess L02.91 [place] [address] [facility] [id number] [address] [place] [id number] Jan, Furuncle L02.92 [place] [address] [facility] [id number] [address] [place] [id number] 16 Jan, 2016 Major depression in partial remission F32.4 [facility] [address] [facility] [id number] [address] [place] [phone] 13 Jan, 2016 Major depressive disorder, r ecurrent episode, mild F33.0 [facility] [address] [facility] [id number] [address] [place] [id number] December, Acute bacterial conjunctivit is of left eye H10.022 [place] [address] [address] December, Major depressive disorder, r ecurrent episode, mild F33.0 [facility] [address] [address] Nov, [place] [address] [address] Nov, Major depressive disorder, r ecurrent episode, mild F33.0 [place] [address] [address] Nov, Hearing loss H91.90 [place] [address] [address] Oct, Major depression in partial remission F32.4 [place] [address] [address] Oct, Pneumonia J18.9 [facility] [address] [address] Oct, Influenza A J10.1 ; Fever, u nspecified R50.9 ; Conjunctivitis H10.9 and Cough R05 [place] [id number] [place] [address] Oct, Major depressive disorder, r ecurrent episode, severe, with psychotic behavior F33.3 [place] [id number] [place] [address] Aug, [place] [address] [address] Aug, Acquired hypothyroidism E03. 9 and Pure hypercholesterolemia E78.0 [place] [address] [place] [id number] [address] [place] [id number] Aug, Major depressive disorder, r ecurrent episode, severe, with psychotic behavior F33.3 [facility] [address] [facility] [id number] [address] [place] [id number] Jul, [facility] [address] [facility] [id number] [address] [place], [place] [address] Jul, Major depressive disorder, r ecurrent episode, severe, with psychotic behavior F33.3 [facility] [address] [facility] [id number] [address] [place] [id number] Jun, Major depressive disorder, r ecurrent episode, severe, with psychotic behavior F33.3 [facility] [address] [facility] [id number] [address] [place] [phone] May, [facility] [address] [facility] [id number] [address] [place] [id number] May, Major depressive disorder, r ecurrent episode, severe, with psychotic behavior F33.3 [facility] [address] [facility] [id number] [address] [place] [id number] May, Major depressive disorder, r ecurrent episode, severe, with psychotic behavior F33.3 [facility] [address] [facility] [id number] [address] [place] [address] Apr, [facility] [address] [place] [id number] [address] [place] [id number] Apr, Depressive disorder, not els ewhere classified 311 and Unspecified psychosis 298.9 [facility] [address] [facility] [id number] [address] [place] [id number] 29 Apr, 2015 Depression 311 and Hard of h earing 389.9 [facility] [address] [facility] [id number] [address] [place] [id number] 10 Apr, 2015 Schizoaffective disorder 295 .70 [facility] [address] [place] [id number] [address] [place] [id number] 08 Apr, 2015 Major depressive disorder, r ecurrent episode, severe, specified as with psychotic behavior 296.34 [facility] [address] [place] [id number] [address] [place] [address] Apr, Psychosis 298.9 and Depressi on 311 [facility] [address] [id number] [address] [place] [id number] Apr, Depressive disorder, not els ewhere classified 311 and Unspecified psychosis 298.9 [facility] [address] [facility] [id number] [address] [place] [address] Mar, Screening for cervical cance r V76.2 ; Well woman exam with routine gynecological exam V72.31 ; Colon cancer screening V76.51 ; Breast cancer screening V76.10 ; Irritable bowel syndrome 564.1 and Psychosis 298.9 [facility] [address] [id number] [address] [place] [id number] Mar, Psychosis 298.9 [facility] [address] [facility] [id number] [address] [place] [address] Mar, Unspecified psychosis 298.9 [facility] [address] [id number] [address] [place] [phone] Nov, [facility] [address] [id number] [address] [place] [phone] Nov, [facility] [address] [facility] [id number] [address] [place] [phone] Oct, [facility] [address] [id number] [address] [place] [phone] Oct, [facility] [address] [id number] [address] [place] [phone] Jul, [facility] [address] [id number] [address] [place] [id number] Jul, [facility] [address] [facility] [id number] [address] [place] [address] May, [facility] [address] [facility] [id number] [address] [place] [phone] Apr, [facility] [address] [id number] [facility] [address] 11 Apr, 2013 [facility] [address] [id number] [facility] [address] 05 Apr, 2013 [facility] [address] [id number] [facility] [address] 05 Apr, 2014 [facility] [address] [id number] [facility] [address] Apr, [facility] [address] [id number] [facility] [address] Mar, [facility] [address] [id number] [address] [place] [address], [place] [address] Mar, [facility] [address] [id number] [address] [place] [address], [place] [address] Mar, [facility] [address] [id number] [address] [place] [address], [place] [address] Mar, [facility] [address] [id number] [address] [place] [address], [place] [address] Mar, [facility] [address] [id number] [address] [place] [address], [place] [address] Mar, [facility] [address] [id number] [address] [place] [address], [place] [address] Mar, [facility] [address] [id number] [address] [place] [address], [place] [address] Mar, [facility] [address] [id number] [address] [place] [address], [place] [address] Mar, [facility] [address] [id number] [address] [place] [address], [place] [address] Mar, [facility] [address] [id number] [address] [place] [address], [place] [address] Jan, [facility] [address] [id number] [address] [place] [address], [place] [address] Jan, [facility] [address] [id number] [address] [place] [address], [place] [address] December, [facility] [address] [id number] [address] [place] [address], [place] [address] December, [facility] [address] [id number] [address] [place] [address], [place] [address] Nov, [facility] [address] [id number] [address] [place] [address], [place] [address] Nov, [facility] [address] [id number] [address] [place] [address], [place] [address] Sep, [facility] [address] [id number] [address] [place] [address], [place] [address] Sep, [facility] [address] [id number] [address] [place] [address], [place] [address] Sep, [facility] [address] [id number] [address] [place] [address], [place] [address] Sep, [facility] [address] [id number] [address] [place] [address], [place] [address] Jun, [facility] [address] [id number] [address] [place] [address], [place] [address] Jun, [facility] [address] [id number] [address] [place] [address], [place] [address] Jun, [facility] [address] [id number] [address] [place] [address], [place] [address] Jun, [facility] [address] [id number] [address] [place] [address], [place] [address] May, [facility] [address] [id number] [address] [place] [address], [place] [address] May, [facility] [address] [id number] [address] [place] [address], [place] [address] Apr, [facility] [address] [id number] [address] [place] [address], [place] [address] Mar, [facility] [address] [id number] [address] [place] [address], [place] [address] Mar, [facility] [address] [id number] [address] [place] [address], [place] [address] Mar, [facility] [address] [id number] [address] [place] [address], [place] [address] Mar, [facility] [address] [id number] [address] [place] [address], [place] [address] Mar, [facility] [address] [id number] [address] [place] [address], [place] [address] Jan, [facility] [address] [id number] [address] [place] [address], [place] [address] Jan, [facility] [address] [id number] [address] [place] [address], [place] [address] Jan, [facility] [address] [id number] [address] [place] [address], [place] [address] December, [facility] [address] [id number] [address] [place] [address], [place] [address] Oct, [facility] [address] [id number] [address] [place] [address], [place] [address] Oct, [facility] [address] [id number] [address] [place] [address], [place] [address] Oct, [facility] [address] [id number] [address] [place] [address], [place] [address] Oct, [facility] [address] [id number] [address] [place] [address], [place] [address] Aug, [facility] [address] [id number] [address] [place] [address], [place] [address] Jun, [facility] [address] [id number] [address] [place] [address], [place] [address] Jun, [facility] [address] [id number] [address] [place] [address], [place] [address] Jun, [facility] [address] [id number] [address] [place] [address], [place] [address] Jun, [facility] [address] [id number] [address] [place] [address], [place] [address] May, [facility] [address] [id number] [address] [place] [address], [place] [address] Apr, [facility] [address] [id number] [address] [place] [address], [place] [address] Mar, [facility] [address] [id number] [address] [place] [address], [place] [address] Jan, [facility] [address] [id number] [address] [place] [address], [place] [address] Jan, [facility] [address] [id number] [address] [place] [address], [place] [address] December, [facility] [address] [id number] [address] [place] [address], [place] [address] December, [facility] [address] [id number] [address] [place] [address], [place] [address] December, [facility] [address] [id number] [address] [place] [address], [place] [address] December, [facility] [address] [id number] [address] [place] [address], [place] [address] Nov, [facility] [address] [id number] [address] [place] [address], [place] [address] Oct, [facility] [address] [id number] [address] [place] [address], [place] [address] Sep, [facility] [address] [id number] [address] [place] [address], [place] [address] Sep, [facility] [address] [id number] [address] [place] [address] Sep, [facility] [address] [id number] [address] [place] [address] Sep, [facility] [address] [id number] [address] [place] [address] Aug, [facility] [address] [id number] [address] [place] [address] Jun, [facility] [address] [id number] [address] [place] [address] May, [facility] [address] [id number] [address] [place] [address] Mar, [facility] [address] [id number] [address] [place] [address] Jun, [facility] [address] [facility] [id number] [address] [place] [address] May, [facility] [address] [id number] [address] [place] [address] May, IMMUNIZATIONS No Known Immunizations SOCIAL HISTORY Never Assessed REASON FOR VISIT Orders from Results PLAN OF CARE VITAL SIGNS MEDICATIONS Medication Instructions Dosage Frequency Start Date End Date Duration S tatus Levothyroxine Sodium 137 MCG Orally Once a day 1 tablet on an empty stomach 24h 60 days Active RESULTS No Results PROCEDURES No [...]
--- OUTSIDE RECORDS SUMMARY | 2020-02-21 11:51 | XMS REPORT ---
Author Author Tarik HOPOER Organization [employer] Address Unknown Phone Unavailable Care Team Providers Care Lamp Stack Developer Name Role Phone BOLIVAR HOOPER Unavailable Allergies No Known Allergies Problems Problem Type Condition ICD-9 Code Onset Dates Condition Statu s Problem Calcaneal spur 726.73 Active Problem Screening for lipoid disorders V77.91 Active Problem Unspecified disorders of bursae and tendons in shoulde r region 726.10 Active Problem Edema 782.3 Active Assessment Unspecified psychosis 298.9 Active Problem Unspecified fasciitis 729.4 Active Problem Unspecified psychosis 298.9 Active Problem Acute upper respiratory infections of unspecified site 465.9 Active Problem Pain in joint, shoulder region 719.41 Active Problem 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 mode Problem Need for prophylactic vaccination and inoculation, Inf luenza V04.81 Active Problem Generalized osteoarthrosis, unspecified site 715.00 Active Problem Esophageal reflux 530.81 Active Problem Screening for malignant neoplasm of the cervix V76.2 Active Problem Special screening examination, human papillomavirus [H PV] V73.81 Active Problem Routine gynecological examination V72.31 Active Problem Unspecified breast screening V76.10 Active Problem Special screening for malignant neoplasms, colon V76.5 1 Active Problem Rash and other nonspecific skin eruption 782.1 Active Problem Other specified counseling V65.49 A ctive Problem Pain in soft tissues of limb 729.5 Active Medications No Known Medications Procedures Procedure Coding System Code Date Psych diagnostic evaluation, established patient CPT-4 13164 Mar 20, 2015 Results No Known Results Summary Purpose [employer] Submission
--- OUTSIDE RECORDS SUMMARY | 2020-02-21 11:51 | XMS REPORT ---
Author Author Tarik COOPER Organization [facility] Address [address] [place] [address] Care Team Providers [employer] Distribution Engineer Name Role Phone ORVILLE COOPER Unavailable PROBLEMS Type Condition ICD9-CM Code [id number] Code Onset Dates Condition S tatus SNOMED Code Problem Pure hypercholesterolemia E78.0 Acti ve [id number] Problem Major depression in partial remission F32.4 Active 88494789 Problem Major depressive disorder, recurrent episode, mild F33.0 Active 780176937 Problem Hearing loss of both ears H91.93 Acti ve 00421894 Problem Acquired hypothyroidism E03.9 Active 405635864 Problem Mild acid reflux K21.9 Active 235 917465 Problem Medicare welcome exam Z00.00 Active 721888501 Problem Calcaneal spur, unspecified laterality M77.30 Active 51569164 Problem Talipes varus, 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 [id number] [address] [place] [id number] Mar, [place] [address] [address] [facility] [id number] [address] [place] [id number] Jan, Acquired hypothyroidism E03. 9 [place] [address] [address] [facility] [id number] [address] [place] [phone] December, Major depressive disorder in full remission, unspecified whether recurrent F32.5 [place] [address] [address] [facility] [id number] [address] [place] [id number] Nov, Acquired hypothyroidism E03. 9 [place] [address] [address] [facility] [id number] [address] [place] [id number] Nov, Pure hypercholesterolemia E7 8.0 ; Peripheral edema R60.9 and Acquired hypothyroidism E03.9 [place] [address] [address] [facility] [id number] [address] [place] [phone] Oct, Mild acid reflux K21.9 [place] [address] [address] [facility] [id number] [address] [place] [id number] 08 Sep, 2017 Major depressive disorder, s glenny episode, in partial remission F32.4 and Long-term use of high-risk medication Z79.899 [place] [address] [address] [facility] [id number] [address] [place] [id number] Aug, Encounter for immunization Z 23 [place] [address] [address] [facility] [id number] [address] [place] [id number] Jul, [place] [address] [address] [place] [id number] [place] [id number] Jun, Medicare annual wellness vis it, initial Z00.00 ; Encounter for immunization Z23 and BMI 40.0-44.9, adult Z68.41 [place] [address] [address] [facility] [id number] [address] [place] [id number] May, [place] [address] [address] [facility] [id number] [address] [place] [address] May, Encounter for immunization Z 23 [place] [address] [address] [facility] [id number] [address] [place] [id number] May, Major depression in partial remission F32.4 [place] [address] [address] [facility] [id number] [address] [place] [address] Apr, Hearing loss H91.90 ; Encoun ter for immunization Z23 and Encounter for screening mammogram for breast cancer Z12.31 [place] [address] [address] [facility] [id number] [address] [place] [id number] Mar, Acquired hypothyroidism E03. 9 [place] [address] [address] [facility] [id number] [address] [place] [id number] Jan, Acquired hypothyroidism E03. 9 [facility] [address] [id number] [address] [place] [id number] Jan, Acute midline low back pain without sciatica M54.5 [facility] [address] [id number] [address] [place] [id number] Jan, Peripheral edema R60.9 [facility] [address] [id number] [address] [place] [id number] Jan, Major depression in partial remission F32.4 [facility] [address] [id number] [address] [place] [id number] Jan, Localized edema R60.0 [facility] [address] [id number] [address] [place] [id number] Nov, Pure hypercholesterolemia E7 8.0 [facility] [address] [id number] [address] [place] [id number] Nov, Pure hypercholesterolemia E7 8.0 [facility] [address] [id number] [address] [place] [id number] Nov, Peripheral edema R60.9 [facility] [address] [id number] [address] [place] [id number] Oct, Major depression in partial remission F32.4 [facility] [address] [id number] [address] [place] [id number] Aug, [facility] [address] [id number] [address] [place] [id number] Aug, Elevated blood pressure read ing R03.0 [facility] [address] [id number] [address] [place] [id number] Aug, [facility] [address] [facility] [id number] [address] [place] [id number] Jun, Major depression in partial remission F32.4 [facility] [address] [id number] [address] [place] [id number] Apr, Major depressive disorder, r ecurrent episode, mild F33.0 [facility] [address] [id number] [address] [place] [id number] Mar, Encounter for well woman reta rios with routine gynecological exam Z01.419 and Breast cancer screening Z12.39 [facility] [address] [id number] [address] [place] [id number] 28 Feb, 2016 Hypothyroidism, unspecified type E03.9 [facility] [address] [id number] [address] [place] [id number] 12 Feb, 2016 Major depressive disorder, r ecurrent episode, mild F33.0 [facility] [address] [id number] [address] [place] [id number] 30 Jan, 2016 Abscess L02.91 [place] [address] [id number] [address] [place] [id number] Jan, Furuncle L02.92 [facility] [address] [id number] [address] [place] [id number] 16 Jan, 2016 Major depression in partial remission F32.4 [place] [address] [id number] [address] [place] [id number] 13 Jan, 2016 Major depressive disorder, r ecurrent episode, mild F33.0 [facility] [address] [id number] [address] [place] [id number] December, Acute bacterial conjunctivit is of left eye H10.022 [facility] [address] [id number] [address] [place] [id number] December, Major depressive disorder, r ecurrent episode, mild F33.0 [facility] [address] [id number] [address] [place] [id number] Nov, [facility] [address] [id number] [address] [place] [id number] Nov, Major depressive disorder, r ecurrent episode, mild F33.0 [facility] [address] [place] [id number] [address] [place] [id number] 18 Nov, 2015 Hearing loss H91.90 [place] [address] [id number] 17 Oct, 2015 Major depression in partial remission F32.4 [facility] [address] [id number] 15 Oct, 2015 Pneumonia J18.9 [facility] [address] [address] 10 Oct, 2015 Influenza A J10.1 ; Fever, u nspecified R50.9 ; Conjunctivitis H10.9 and Cough R05 [place] [address] [address] 10 Oct, 2015 Major depressive disorder, r ecurrent episode, severe, with psychotic behavior F33.3 [place] [address] [address] Aug, [place] [address] [address] Aug, Acquired hypothyroidism E03. 9 and Pure hypercholesterolemia E78.0 [place] [address] [address] Aug, Major depressive disorder, r ecurrent episode, severe, with psychotic behavior F33.3 [place] [address] [address] Jul, [place] [address] [address] Jul, Major depressive disorder, r ecurrent episode, severe, with psychotic behavior F33.3 [place] [address] [address] Jun, Major depressive disorder, r ecurrent episode, severe, with psychotic behavior F33.3 [place] [address] [address] May, [facility] [address] [facility] [id number] [address] [place] [phone] May, Major depressive disorder, r ecurrent episode, severe, with psychotic behavior F33.3 [facility] [address] [facility] [id number] [address] [place] [id number] 08 May, 2015 Major depressive disorder, r ecurrent episode, severe, with psychotic behavior F33.3 [place] [address] [address] [facility] [id number] [address] [place] [id number] Apr, [facility] [address] [place] [id number] [address] [place] [id number] Apr, Depressive disorder, not els ewhere classified 311 and Unspecified psychosis 298.9 [place] [address] [address] [place] [id number] [address] [place] [id number] Apr, Depression 311 and Hard of h earing 389.9 [place] [address] [address] [place] [id number] [address] [place] [id number] Apr, Schizoaffective disorder 295 .70 [place] [address] [address] [place] [id number] [address] [place] [id number] Apr, Major depressive disorder, r ecurrent episode, severe, specified as with psychotic behavior 296.34 [place] [address] [address] [place] [id number] [address] [place] [id number] Apr, Psychosis 298.9 and Depressi on 311 [place] [address] [address] [place] [id number] [address] [place] [id number] Apr, Depressive disorder, not els ewhere classified 311 and Unspecified psychosis 298.9 [place] [address] [address] [place] [id number] [address] [place] [id number] Mar, Screening for cervical cance r V76.2 ; Well woman exam with routine gynecological exam V72.31 ; Colon cancer screening V76.51 ; Breast cancer screening V76.10 ; Irritable bowel syndrome 564.1 and Psychosis 298.9 [facility] [address] [id number] [address] [place] [id number] Mar, Psychosis 298.9 [facility] [address] [id number] [address] [place] [id number] Mar, Unspecified psychosis 298.9 [facility] [address] [id number] [address] [place] [id number] 14 Nov, 2014 [facility] [address] [id number] [address] [place] [id number] Nov, [facility] [address] [id number] [address] [place] [id number] Oct, [facility] [address] [id number] [address] [place] [id number] Oct, [facility] [address] [id number] [address] [place] [id number] Jul, [facility] [address] [id number] [address] [place] [id number] Jul, [facility] [address] [id number] [address] [place] [id number] May, [facility] [address] [id number] [address] [place] [address] Apr, [facility] [address] [id number] [address] [place] [id number] Apr, [facility] [address] [id number] [address] [place] [id number] 05 Apr, 2014 [facility] [address] [id number] [address] [place] [id number] 05 Apr, 2014 [facility] [address] [id number] [address] [place] [id number] Apr, [facility] [address] [id number] [address] [place] [id number] Mar, [facility] [address] [id number] [address] [place] [id number] Mar, [facility] [address] [id number] [facility] [place] [address] Mar, [facility] [address] [id number] [address] [place] [address], [place] [address] Mar, [facility] [address] [id number] [address] [place] [address], [place] [address] Mar, [facility] [address] [id number] [address] [place] [address], [place] [address] Mar, [facility] [address] [id number] [address] [place] [address], [place] [address] Mar, [facility] [address] [id number] [address] [place] [address], [place] [address] Mar, [facility] [address] [id number] [address] [place] [address], [place] [address] Mar, [facility] [address] [id number] [address] [place] [address], [place] [address] Mar, [facility] [address] [id number] [address] [place] [address], [place] [address] Jan, [facility] [address] [id number] [address] [place] [address], [place] [address] Jan, [facility] [address] [id number] [address] [place] [address], [place] [address] December, [facility] [address] [id number] [address] [place] [address], [place] [address] December, [facility] [address] [id number] [address] [place] [address], [place] [address] Nov, [facility] [address] [id number] [address] [place] [address], [place] [address] Nov, [facility] [address] [id number] [address] [place] [address], [place] [address] Sep, [facility] [address] [id number] [address] [place] [address], [place] [address] Sep, [facility] [address] [id number] [address] [place] [address], [place] [address] Sep, [facility] [address] [id number] [address] [place] [address], [place] [address] Sep, [facility] [address] [id number] [address] [place] [address], [place] [address] Jun, [facility] [address] [id number] [address] [place] [address], [place] [address] Jun, [facility] [address] [id number] [address] [place] [address], [place] [address] Jun, [facility] [address] [id number] [address] [place] [address], [place] [address] Jun, [facility] [address] [id number] [address] [place] [address], [place] [address] May, [facility] [address] [id number] [address] [place] [address], [place] [address] May, [facility] [address] [id number] [address] [place] [address], [place] [address] Apr, [facility] [address] [id number] [address] [place] [address], [place] [address] Mar, [facility] [address] [id number] [address] [place] [address], [place] [address] Mar, [facility] [address] [id number] [address] [place] [address], [place] [address] Mar, [facility] [address] [id number] [address] [place] [address], [place] [address] Mar, [facility] [address] [id number] [address] [place] [address], [place] [address] Mar, [facility] [address] [id number] [address] [place] [address], [place] [address] 08 Jan, 2013 [facility] [address] [id number] [address] [place] [address], [place] [address] 24 Jan, 2013 [facility] [address] [id number] [address] [place] [address], [place] [address] Jan, [facility] [address] [id number] [address] [place] [address], [place] [address] December, [facility] [address] [id number] [address] [place] [address], [place] [address] Oct, [facility] [address] [id number] [address] [place] [address], [place] [address] Oct, [facility] [address] [id number] [address] [place] [address], [place] [address] Oct, [facility] [address] [id number] [address] [place] [address], [place] [address] Oct, [facility] [address] [id number] [address] [place] [address], [place] [address] Aug, [facility] [address] [id number] [address] [place] [address], [place] [address] 16 Jun, 2012 [facility] [address] [id number] [address] [place] [address], [place] [address] 16 Jun, 2012 [facility] [address] [id number] [address] [place] [address], [place] [address] 14 Jun, 2012 [facility] [address] [id number] [address] [place] [address], [place] [address] 14 Jun, 2012 [facility] [address] [id number] [address] [place] [address], [place] [address] 05 May, 2012 [facility] [address] [id number] [address] [place] [address], [place] [address] 10 Apr, 2012 [facility] [address] [id number] [address] [place] [address], [place] [address] Mar, [facility] [address] [id number] [address] [place] [address], [place] [address] Jan, [facility] [address] [id number] [address] [place] [address], [place] [address] Jan, [facility] [address] [id number] [address] [place] [address], [place] [address] December, [facility] [address] [id number] [address] [place] [address], [place] [address] December, [facility] [address] [id number] [address] [place] [address], [place] [address] December, [facility] [address] [id number] [address] [place] [address], [place] [address] December, [facility] [address] [id number] [address] [place] [address], [place] [address] Nov, [facility] [address] [id number] [address] [place] [address], [place] [address] Oct, [facility] [address] [id number] [address] [place] [address], [place] [address] Sep, [facility] [address] [id number] [address] [place] [address], [place] [address] Sep, [facility] [address] [id number] [address] [place] [address], [place] [address] Sep, [facility] [address] [id number] [address] [place] [address], [place] [address] Sep, [facility] [address] [id number] [address] [place] [address], [place] [address] Aug, [facility] [address] [id number] [address] [place] [address], [place] [address] Jun, [facility] [address] [id number] [address] [place] [address], [place] [address] May, [facility] [address] [id number] [address] [place] [address], [place] [address] Mar, [facility] [address] [facility] [id number] [address] [place] [id number] Jun, [facility] [address] [facility] [id number] [address] [place] [id number] May, [facility] [address] [facility] [id number] [address] [place] [id number] May, IMMUNIZATIONS Vaccine Route Administration Date Status ZOSTER (ZOSTAVAX) [place] Subcutaneous Aug 06, 2017 Administered SOCIAL HISTORY Never Assessed REASON FOR VISIT Zostavax -- maureen gold PLAN OF CARE VITAL SIGNS MEDICATIONS Unknown Medications RESULTS No Results PROCEDURES Procedure Date Ordered Result Body Site ZOSTER (ZOSTAVAX) Aug 06, 2017 SINGLE IMMUNIZATION ADMIN Aug 06, 2017 INSTRUCTIONS MEDICATIONS ADMINISTERED No Known Medications MEDICAL (GENERAL) HISTORY Type Description Date Medical History depression Medical History hypothryroidism Medical History hyperlipidemia Medical History trauma: Stroke - with L side faci al drooping Surgical History hysterectomy Surgical History cholecystectomy Surgical History gall bladder removal Hospitalization History surgeries Hospitalization History stroke
--- OUTSIDE RECORDS SUMMARY | 2020-02-21 11:51 | XMS REPORT ---
Author Author Tarik POTTS Organization [facility] Address [address] [place] [address] Care Team Providers Care Regional Commercial Sales Manager Name Role Phone ROMA POTTS Unavailable PROBLEMS Type Condition ICD9-CM Code MXQ08-RD Code Onset Dates Condition S tatus SNOMED Code Problem Pure hypercholesterolemia E78.0 Acti ve 003259996 Problem Major depression in partial remission F32.4 Active 10551175 Problem Major depressive disorder, recurrent episode, mild F33.0 Active 668625210 Problem Hearing loss of both ears H91.93 Acti ve 50871102 Problem Acquired hypothyroidism E03.9 Active 932993994 Problem Mild acid reflux K21.9 Active 235 481012 Problem Medicare welcome exam Z00.00 Active 644756274 Problem Calcaneal spur, unspecified laterality M77.30 Active 70205385 Problem Talipes varus, 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 13041550 Problem Hearing loss H91.90 Active 7820124 1 Problem Edema, unspecified type R60.9 Active [id number] ALLERGIES No Information ENCOUNTERS Encounter Location Date Diagnosis [place] [address] [address] [facility] [id number] [address] [place] [address] December, [place] [address] [facility] [id number] [address] [place] [address] Nov, [place] [address] [facility] [id number] [address] [place] [address] Oct, Mild acid reflux K21.9 [place] [address] [facility] [id number] [address] [place] [address] 08 Sep, 2017 Major depressive disorder, s glenny episode, in partial remission F32.4 and Long-term use of high-risk medication Z79.899 [place] [address] [address] [place] [id number] [address] [place] [address] Aug, Encounter for immunization Z 23 [facility] [address] [facility] [id number] [address] [place] [address] Jul, [place] [address] [address] [facility] [id number] [address] [place] [address] Jun, Medicare annual wellness vis it, initial Z00.00 ; Encounter for immunization Z23 and BMI 40.0-44.9, adult Z68.41 [place] [address] [address] [facility] [id number] [address] [place] [address] May, [place] [address] [facility] [id number] [place] [address] May, Encounter for immunization Z 23 [place] [address] [place] [id number] [address] [place] [address] May, Major depression in partial remission F32.4 [place] [id number] [place] [address] Apr, Hearing loss H91.90 ; Encoun ter for immunization Z23 and Encounter for screening mammogram for breast cancer Z12.31 [place] [address] [place] [id number] [address] [place] [address] Mar, Acquired hypothyroidism E03. 9 [place] [address] [place] [id number] [address] [place] [address] Jan, Acquired hypothyroidism E03. 9 [place] [address] [facility] [id number] [address] [place] [address] Jan, Acute midline low back pain without sciatica M54.5 [place] [address] [place] [id number] [address] [place] [address] Jan, Peripheral edema R60.9 [place] [address] [place] [id number] [address] [place] [address] Jan, Major depression in partial remission F32.4 [place] [address] [address] [place] [id number] [place] [address] Jan, Localized edema R60.0 [facility] [address] [id number] [address] [place] [address] Nov, Pure hypercholesterolemia E7 8.0 [facility] [address] [id number] [address] [place] [address] Nov, Pure hypercholesterolemia E7 8.0 [facility] [address] [id number] [address] [place] [address] Nov, Peripheral edema R60.9 [facility] [address] [id number] [address] [place] [address] Oct, Major depression in partial remission F32.4 [facility] [address] [facility] [id number] [address] [place] [address] Aug, [facility] [address] [facility] [id number] [address] [place] [address] Aug, Elevated blood pressure read ing R03.0 [facility] [address] [id number] [address] [place] [address] Aug, [facility] [address] [facility] [id number] [address] [place] [address] Jun, Major depression in partial remission F32.4 [facility] [address] [facility] [id number] [address] [place] [address] Apr, Major depressive disorder, r ecurrent episode, mild F33.0 [facility] [address] [id number] [address] [place] [address] Mar, Encounter for well woman exa m with routine gynecological exam Z01.419 and Breast cancer screening Z12.39 [facility] [address] [facility] [id number] [address] [place] [address] Jan, Hypothyroidism, unspecified type E03.9 [facility] [address] [facility] [id number] [address] [place] [address] Jan, Major depressive disorder, r ecurrent episode, mild F33.0 [facility] [address] [id number] [address] [place] [address] 30 Jan, 2016 Abscess L02.91 [facility] [address] [id number] [address] [place] [address] Jan, Furuncle L02.92 [facility] [address] [id number] [address] [place] [address] 16 Jan, 2016 Major depression in partial remission F32.4 [facility] [address] [id number] [address] [place] [address] Jan, Major depressive disorder, r ecurrent episode, mild F33.0 [facility] [address] [id number] [address] [place] [address] December, Acute bacterial conjunctivit is of left eye H10.022 [place] [address] [id number] [address] [place] [address] December, Major depressive disorder, r ecurrent episode, mild F33.0 [facility] [address] [id number] [address] [place] [address] Nov, [facility] [address] [id number] [address] [place] [address] Nov, Major depressive disorder, r ecurrent episode, mild F33.0 [facility] [address] [id number] [address] [place] [address] Nov, Hearing loss H91.90 [facility] [address] [id number] [address] [place] [address] 17 Oct, 2015 Major depression in partial remission F32.4 [facility] [address] [id number] [address] [place] [address] 15 Oct, 2015 Pneumonia J18.9 [facility] [address] [facility] [id number] [address] [place] [address] 10 Mar, 2016 Influenza A J10.1 ; Fever, u nspecified R50.9 ; Conjunctivitis H10.9 and Cough R05 [place] [address] [address] Oct, Major depressive disorder, r ecurrent episode, severe, with psychotic behavior F33.3 [facility] [address] [address] Aug, [place] [address] [address] Aug, Acquired hypothyroidism E03. 9 and Pure hypercholesterolemia E78.0 [place] [address] [address] Aug, Major depressive disorder, r ecurrent episode, severe, with psychotic behavior F33.3 [place] [address] [address] Jul, [place] [address] [address] Jul, Major depressive disorder, r ecurrent episode, severe, with psychotic behavior F33.3 [place] [address] [address] Jun, Major depressive disorder, r ecurrent episode, severe, with psychotic behavior F33.3 [place] [address] [place] [id number] [address] [place] [address] May, [place] [address] [address] May, Major depressive disorder, r ecurrent episode, severe, with psychotic behavior F33.3 [place] [address] [address] May, Major depressive disorder, r ecurrent episode, severe, with psychotic behavior F33.3 [id number] [place] [id number] [address] [place] [address] Apr, [facility] [address] [facility] [id number] [address] [place] [address] Apr, Depressive disorder, not els ewhere classified 311 and Unspecified psychosis 298.9 [facility] [address] [facility] [id number] [address] [place] [address] Apr, Depression 311 and Hard of h earing 389.9 [facility] [address] [place] [id number] [address] [place] [address] Apr, Schizoaffective disorder 295 .70 [place] [address] [place] [id number] [address] [place] [address] 08 Apr, 2015 Major depressive disorder, r ecurrent episode, severe, specified as with psychotic behavior 296.34 [place] [address] [place] [id number] [address] [place] [address] Apr, Psychosis 298.9 and Depressi on 311 [place] [address] [address] [place] [id number] [address] [place] [address] Apr, Depressive disorder, not els ewhere classified 311 and Unspecified psychosis 298.9 [place] [address] [place] [id number] [address] [place] [address] Mar, Screening for cervical cance r V76.2 ; Well woman exam with routine gynecological exam V72.31 ; Colon cancer screening V76.51 ; Breast cancer screening V76.10 ; Irritable bowel syndrome 564.1 and Psychosis 298.9 [place] [address] [place] [id number] [address] [place] [address] Mar, Psychosis 298.9 [place] [address] [place] [id number] [address] [place] [address] Mar, Unspecified psychosis 298.9 [place] [address] [place] [id number] [address] [place] [address] Nov, [place] [address] [place] [id number] [address] [place] [address] Nov, [facility] [address] [id number] [address] [place] [address], [place] [address] Oct, [facility] [address] [id number] [address] [place] [address], [place] [address] Oct, [facility] [address] [id number] [address] [place] [address], [place] [address] Jul, [facility] [address] [id number] [address] [place] [address], [place] [address] Jul, [facility] [address] [id number] [address] [place] [address], [place] [address] May, [facility] [address] [id number] [address] [place] [address], [place] [address] Apr, [facility] [address] [id number] [address] [place] [address], [place] [address] Apr, [facility] [address] [id number] [address] [place] [address], [place] [address] Apr, [facility] [address] [id number] [address] [place] [address], [place] [address] 05 Apr, 2014 [facility] [address] [id number] [address] [place] [address], [place] [address] Apr, [facility] [address] [id number] [address] [place] [address], [place] [address] Mar, [facility] [address] [id number] [address] [place] [address], [place] [address] Mar, [facility] [address] [id number] [address] [place] [address], [place] [address] Mar, [facility] [address] [id number] [address] [place] [address], [place] [address] Mar, [facility] [address] [id number] [address] [place] [address], [place] [address] Mar, [facility] [address] [id number] [address] [place] [address], [place] [address] Mar, [facility] [address] [id number] [facility] [address] Mar, [facility] [address] [id number] [address] [place] [address], [place] [address] Mar, [facility] [address] [id number] [facility] [address] Mar, [facility] [address] [id number] [address] [place] [address], [place] [address] Mar, [facility] [address] [id number] [address] [place] [address], [place] [address] Jan, [facility] [address] [id number] [address] [place] [address], [place] [address] Jan, [facility] [address] [id number] [address] [place] [address], [place] [address] December, [facility] [address] [id number] [address] [place] [address], [place] [address] December, [facility] [address] [id number] [address] [place] [address], [place] [address] Nov, [facility] [address] [id number] [address] [place] [address], [place] [address] Nov, [facility] [address] [id number] [address] [place] [address], [place] [address] Sep, [facility] [address] [id number] [address] [place] [address], [place] [address] Sep, [facility] [address] [id number] [address] [place] [address], [place] [address] Sep, [facility] [address] [id number] [address] [place] [address], [place] [address] Sep, [facility] [address] [id number] [address] [place] [address], [place] [address] Jun, [facility] [address] [id number] [address] [place] [address], [place] [address] 14 Jun, 2013 [facility] [address] [id number] [address] [place] [address], [place] [address] Jun, [facility] [address] [id number] [address] [place] [address], [place] [address] Jun, [facility] [address] [id number] [address] [place] [address], [place] [address] May, [facility] [address] [id number] [address] [place] [address], [place] [address] May, [facility] [address] [id number] [address] [place] [address], [place] [address] Apr, [facility] [address] [id number] [address] [place] [address], [place] [address] Mar, [facility] [address] [id number] [address] [place] [address], [place] [address] Mar, [facility] [address] [id number] [address] [place] [address], [place] [address] Mar, [facility] [address] [id number] [address] [place] [address], [place] [address] Mar, [facility] [address] [id number] [address] [place] [address], [place] [address] Mar, [facility] [address] [id number] [address] [place] [address], [place] [address] Jan, [facility] [address] [id number] [address] [place] [address], [place] [address] Jan, [facility] [address] [id number] [address] [place] [address], [place] [address] Jan, [facility] [address] [id number] [address] [place] [address], [place] [address] December, [facility] [address] [id number] [address] [place] [address], [place] [address] Oct, [facility] [address] [id number] [address] [place] [address], [place] [address] Oct, [facility] [address] [id number] [address] [place] [address], [place] [address] Oct, [facility] [address] [id number] [address] [place] [address], [place] [address] Oct, [facility] [address] [id number] [address] [place] [address], [place] [address] Aug, [facility] [address] [id number] [address] [place] [address], [place] [address] Jun, [facility] [address] [id number] [address] [place] [address], [place] [address] Jun, [facility] [address] [id number] [address] [place] [address], [place] [address] Jun, [facility] [address] [id number] [address] [place] [address], [place] [address] Jun, [facility] [address] [id number] [address] [place] [address], [place] [address] May, [facility] [address] [id number] [address] [place] [address], [place] [address] Apr, [facility] [address] [id number] [address] [place] [address], [place] [address] Mar, [facility] [address] [id number] [address] [place] [address], [place] [address] Jan, [facility] [address] [id number] [address] [place] [address], [place] [address] Jan, [facility] [address] [id number] [address] [place] [address], [place] [address] December, [facility] [address] [id number] [address] [place] [address], [place] [address] December, [facility] [address] [id number] [address] [place] [address] December, [facility] [address] [id number] [address] [place] [address] December, [facility] [address] [id number] [address] [place] [address] Nov, [facility] [address] [id number] [address] [place] [address] Oct, [facility] [address] [id number] [address] [place] [address] Sep, [facility] [address] [id number] [address] [place] [address] Sep, [facility] [address] [id number] [address] [place] [address] Sep, [facility] [address] [id number] [address] [place] [address] Sep, [facility] [address] [id number] [address] [place] [address] Aug, [facility] [address] [id number] [address] [place] [address] Jun, [facility] [address] [id number] [address] [place] [address] May, [facility] [address] [id number] [address] [place] [address] Mar, [facility] [address] [id number] [address] [place] [address] Jun, [facility] [address] [id number] [address] [place] [address] May, [facility] [address] [facility] [id number] [address] [place] [address] May, IMMUNIZATIONS No Known Immunizations SOCIAL HISTORY Never Assessed REASON FOR VISIT Lab order PLAN OF CARE VITAL SIGNS MEDICATIONS Unknown [...]
--- OUTSIDE RECORDS SUMMARY | 2020-02-21 11:52 | XMS REPORT ---
Author Author Tarik POTTS Organization [facility] Address [address] [place] [address] Care Team Providers Care Home Health Care Worker Name Role Phone ROMA POTTS Unavailable PROBLEMS Type Condition ICD9-CM Code OLM07-LC Code Onset Dates Condition S tatus SNOMED Code Problem Pure hypercholesterolemia E78.0 Acti ve 317484804 Problem Major depression in partial remission F32.4 Active 43694477 Problem Major depressive disorder, recurrent episode, mild F33.0 Active 316258946 Problem Hearing loss of both ears H91.93 Acti ve 43126925 Problem Acquired hypothyroidism E03.9 Active 955847155 Problem Mild acid reflux K21.9 Active 235 646379 Problem Medicare welcome exam Z00.00 Active 692880611 Problem Calcaneal spur, unspecified laterality M77.30 Active 98815685 Problem Talipes varus, 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 9 [place] [address] [place] [id number] [address] [place] [address] Nov, Pure hypercholesterolemia E7 8.0 ; Peripheral edema R60.9 and Acquired hypothyroidism E03.9 [place] [id number] [place] [address] Oct, Mild acid reflux K21.9 [place] [address] [facility] [id number] [address] [place] [address] Sep, Major depressive disorder, s glenny episode, in partial remission F32.4 and Long-term use of high-risk medication Z79.899 [place] [address] [place] [id number] [address] [place] [address] Aug, Encounter for immunization Z 23 [place] [address] [place] [id number] [address] [place] [address] Jul, [place] [address] [place] [id number] [place] [address] Jun, Medicare annual wellness vis it, initial Z00.00 ; Encounter for immunization Z23 and BMI 40.0-44.9, adult Z68.41 [place] [address] [place] [id number] [address] [place] [address] May, [place] [address] [place] [id number] [place] [address] May, Encounter for immunization Z 23 [place] [address] [place] [id number] [place] [address] May, Major depression in partial remission F32.4 [place] [address] [place] [id number] [place] [address] Apr, Hearing loss H91.90 ; Encoun ter for immunization Z23 and Encounter for screening mammogram for breast cancer Z12.31 [place] [address] [facility] [id number] [address] [place] [address] Mar, Acquired hypothyroidism E03. 9 [place] [address] [place] [id number] [address] [place] [address] Jan, Acquired hypothyroidism E03. 9 [place] [address] [place] [id number] [address] [place] [address] Jan, Acute midline low back pain without sciatica M54.5 [facility] [address] [id number] [address] [place] [address] Jan, Peripheral edema R60.9 [facility] [address] [id number] [address] [place] [address] Jan, Major depression in partial remission F32.4 [facility] [address] [id number] [address] [place] [address] Jan, Localized edema R60.0 [facility] [address] [id number] [address] [place] [address] Nov, Pure hypercholesterolemia E7 8.0 [facility] [address] [id number] [address] [place] [address] Nov, Pure hypercholesterolemia E7 8.0 [facility] [address] [id number] [address] [place] [address] Nov, Peripheral edema R60.9 [facility] [address] [id number] [address] [place] [address] Oct, Major depression in partial remission F32.4 [facility] [address] [id number] [address] [place] [address] Aug, [facility] [address] [id number] [address] [place] [address] Aug, Elevated blood pressure read ing R03.0 [facility] [address] [id number] [address] [place] [address] Aug, [facility] [address] [id number] [address] [place] [address] Jun, Major depression in partial remission F32.4 [facility] [address] [id number] [address] [place] [address] Apr, Major depressive disorder, r ecurrent episode, mild F33.0 [facility] [address] [id number] [address] [place] [address] Mar, Encounter for well woman reta rios with routine gynecological exam Z01.419 and Breast cancer screening Z12.39 [place] [id number] [id number] [address] [place] [address] Jan, Hypothyroidism, unspecified type E03.9 [facility] [address] [id number] [address] [place] [address] Jan, Major depressive disorder, r ecurrent episode, mild F33.0 [facility] [address] [id number] [address] [place] [address] 30 Jan, 2016 Abscess L02.91 [place] [address] [id number] [address] [place] [address] Jan, Furuncle L02.92 [place] [address] [id number] [address] [place] [address] 16 Jan, 2016 Major depression in partial remission F32.4 [place] [address] [id number] [address] [place] [address] Jan, Major depressive disorder, r ecurrent episode, mild F33.0 [facility] [address] [id number] [address] [place] [address] December, Acute bacterial conjunctivit is of left eye H10.022 [place] [address] [id number] [address] [place] [address] December, Major depressive disorder, r ecurrent episode, mild F33.0 [facility] [address] [id number] [address] [place] [address] Nov, [place] [address] [id number] [address] [place] [address] Nov, Major depressive disorder, r ecurrent episode, mild F33.0 [facility] [address] [id number] [address] [place] [address] 18 Nov, 2015 Hearing loss H91.90 [place] [address] [facility] [id number] [address] [place] [address] 17 Oct, 2015 Major depression in partial remission F32.4 [facility] [address] [place] [id number] [address] [place] [address] 15 Oct, 2015 Pneumonia J18.9 [facility] [address] [facility] [id number] [address] [place] [address] 10 Oct, 2015 Influenza A J10.1 ; Fever, u nspecified R50.9 ; Conjunctivitis H10.9 and Cough R05 [facility] [address] [place] [id number] [place] [address] 10 Oct, 2015 Major depressive disorder, r ecurrent episode, severe, with psychotic behavior F33.3 [place] [address] [place] [id number] [address] [place] [address] Aug, [place] [address] [address] Aug, Acquired hypothyroidism E03. 9 and Pure hypercholesterolemia E78.0 [facility] [address] [place] [id number] [address] [place] [address] Aug, Major depressive disorder, r ecurrent episode, severe, with psychotic behavior F33.3 [place] [address] [place] [id number] [address] [place] [address] Jul, [place] [address] [place] [id number] [address] [place] [address] Jul, Major depressive disorder, r ecurrent episode, severe, with psychotic behavior F33.3 [place] [address] [place] [id number] [address] [place] [address] Jun, Major depressive disorder, r ecurrent episode, severe, with psychotic behavior F33.3 [place] [address] [place] [id number] [address] [place] [address] May, [place] [address] [place] [id number] [address] [place] [address] May, Major depressive disorder, r ecurrent episode, severe, with psychotic behavior F33.3 [place] [address] [facility] [id number] [address] [place] [address] May, Major depressive disorder, r ecurrent episode, severe, with psychotic behavior F33.3 [facility] [address] [facility] [id number] [address] [place] [address] Apr, [place] [address] [place] [id number] [address] [place] [address] Apr, Depressive disorder, not els ewhere classified 311 and Unspecified psychosis 298.9 [place] [address] [place] [id number] [place] [address] Apr, Depression 311 and Hard of h earing 389.9 [place] [address] [place] [id number] [address] [place] [address] Apr, Schizoaffective disorder 295 .70 [place] [address] [place] [id number] [address] [place] [address] Apr, Major depressive disorder, r ecurrent episode, severe, specified as with psychotic behavior 296.34 [place] [address] [place] [id number] [address] [place] [address] Apr, Psychosis 298.9 and Depressi on 311 [place] [address] [place] [id number] [address] [place] [address] Apr, Depressive disorder, not els ewhere classified 311 and Unspecified psychosis 298.9 [place] [address] [place] [id number] [address] [place] [address] Mar, Screening for cervical cance r V76.2 ; Well woman exam with routine gynecological exam V72.31 ; Colon cancer screening V76.51 ; Breast cancer screening V76.10 ; Irritable bowel syndrome 564.1 and Psychosis 298.9 [place] [address] [place] [id number] [address] [place] [address] Mar, Psychosis 298.9 [facility] [address] [id number] [address] [place] [address], [place] [address] 18 Mar, 2015 Unspecified psychosis 298.9 [facility] [address] [id number] [address] [place] [address], [place] [address] 14 Nov, 2014 [facility] [address] [id number] [address] [place] [address], [place] [address] 13 Nov, 2014 [facility] [address] [id number] [address] [place] [address], [place] [address] Oct, [facility] [address] [id number] [address] [place] [address], [place] [address] Oct, [facility] [address] [id number] [address] [place] [address], [place] [address] Jul, [facility] [address] [id number] [address] [place] [address], [place] [address] Jul, [facility] [address] [id number] [address] [place] [address], [place] [address] May, [facility] [address] [id number] [address] [place] [address], [place] [address] Apr, [facility] [address] [id number] [address] [place] [address] Apr, [facility] [address] [id number] [address] [place] [address] Apr, [facility] [address] [id number] [address] [place] [address] 05 Apr, 2014 [facility] [address] [id number] [address] [place] [address], [place] [address] Apr, [facility] [address] [id number] [address] [place] [address], [place] [address] Mar, [facility] [address] [id number] [address] [place] [address] Mar, [facility] [address] [id number] [address] [place] [address] Mar, [facility] [address] [id number] [facility] [address] Mar, [facility] [address] [id number] [address] [place] [address], [place] [address] Mar, [facility] [address] [id number] [address] [place] [address], [place] [address] Mar, [facility] [address] [id number] [address] [place] [address], [place] [address] Mar, [facility] [address] [id number] [address] [place] [address], [place] [address] Mar, [facility] [address] [id number] [address] [place] [address], [place] [address] Mar, [facility] [address] [id number] [address] [place] [address], [place] [address] Mar, [facility] [address] [id number] [address] [place] [address], [place] [address] Jan, [facility] [address] [id number] [address] [place] [address], [place] [address] Jan, [facility] [address] [id number] [address] [place] [address], [place] [address] December, [facility] [address] [id number] [address] [place] [address], [place] [address] December, [facility] [address] [id number] [address] [place] [address], [place] [address] Nov, [facility] [address] [id number] [address] [place] [address], [place] [address] Nov, [facility] [address] [id number] [address] [place] [address], [place] [address] Sep, [facility] [address] [id number] [address] [place] [address], [place] [address] Sep, [facility] [address] [id number] [address] [place] [address], [place] [address] Sep, [facility] [address] [id number] [address] [place] [address], [place] [address] Sep, [facility] [address] [id number] [address] [place] [address], [place] [address] Jun, [facility] [address] [id number] [address] [place] [address], [place] [address] Jun, [facility] [address] [id number] [address] [place] [address], [place] [address] Jun, [facility] [address] [id number] [address] [place] [address], [place] [address] Jun, [facility] [address] [id number] [address] [place] [address], [place] [address] May, [facility] [address] [id number] [address] [place] [address], [place] [address] May, [facility] [address] [id number] [address] [place] [address], [place] [address] Apr, [facility] [address] [id number] [address] [place] [address], [place] [address] Mar, [facility] [address] [id number] [address] [place] [address], [place] [address] Mar, [facility] [address] [id number] [address] [place] [address], [place] [address] Mar, [facility] [address] [id number] [address] [place] [address], [place] [address] Mar, [facility] [address] [id number] [address] [place] [address], [place] [address] Mar, [facility] [address] [id number] [address] [place] [address], [place] [address] Jan, [facility] [address] [id number] [address] [place] [address], [place] [address] Jan, [facility] [address] [id number] [address] [place] [address], [place] [address] Jan, [facility] [address] [id number] [address] [place] [address], [place] [address] December, [facility] [address] [id number] [address] [place] [address], [place] [address] Oct, [facility] [address] [id number] [address] [place] [address], [place] [address] Oct, [facility] [address] [id number] [address] [place] [address], [place] [address] Oct, [facility] [address] [id number] [address] [place] [address], [place] [address] Oct, [facility] [address] [id number] [address] [place] [address], [place] [address] Aug, [facility] [address] [id number] [address] [place] [address], [place] [address] Jun, [facility] [address] [id number] [address] [place] [address], [place] [address] 16 Jun, 2012 [facility] [address] [id number] [address] [place] [address], [place] [address] Jun, [facility] [address] [id number] [address] [place] [address], [place] [address] 14 Jun, 2012 [facility] [address] [id number] [address] [place] [address], [place] [address] 05 May, 2012 [facility] [address] [id number] [address] [place] [address], [place] [address] Apr, [facility] [address] [id number] [address] [place] [address], [place] [address] Mar, [facility] [address] [id number] [address] [place] [address], [place] [address] Jan, [facility] [address] [id number] [address] [place] [address], [place] [address] Jan, [facility] [address] [id number] [address] [place] [address], [place] [address] December, [facility] [address] [id number] [address] [place] [address], [place] [address] December, [facility] [address] [id number] [address] [place] [address], [place] [address] December, [facility] [address] [id number] [address] [place] [address], [place] [address] December, [facility] [address] [id number] [address] [place] [address], [place] [address] Nov, [facility] [address] [id number] [address] [place] [address], [place] [address] Oct, [facility] [address] [id number] [address] [place] [address], [place] [address] Sep, [facility] [address] [id number] [address] [place] [address], [place] [address] Sep, [facility] [address] [id number] [address] [place] [address], [place] [address] Sep, [facility] [address] [id number] [address] [place] [address], [place] [address] Sep, [facility] [address] [id number] [address] [place] [address], [place] [address] Aug, [facility] [address] [id number] [address] [place] [address], [place] [address] Jun, [facility] [address] [id number] [address] [place] [address], [place] [address] May, [facility] [address] [id number] [address] [place] [address], [place] [address] Mar, [facility] [address] [id number] [address] [place] [address], [place] [address] Jun, [facility] [address] [facility] [id number] [address] [place] [address] May, [facility] [address] [facility] [id number] [address] [place] [address] May, IMMUNIZATIONS No Known Immunizations SOCIAL HISTORY Never Assessed REASON FOR VISIT Requests return call PLAN OF CARE VITAL SIGNS MEDICATIONS Unknown [...]
--- OUTSIDE RECORDS SUMMARY | 2020-02-21 11:52 | XMS REPORT ---
Author Author Tarik HOOPER Organization [employer] Address Unknown Phone Unavailable Care Team Providers Care Credentialing Analyst Name Role Phone BOLIVAR HOOPER CP Unavailable Allergies No Known Allergies Problems Problem Type Condition ICD-9 Code Onset Dates Condition Statu s Problem Unspecified disorders of bursae and tendons in shoulde r region 726.10 Active Problem Pain in joint, shoulder region 719.41 Active Problem Screening for lipoid disorders V77.91 Active Problem Unspecified psychosis 298.9 Active Problem Screening for malignant neoplasm of the cervix V76.2 Active Problem Edema 782.3 Active Assessment Depressive disorder, not elsewhere classified 311 Active Assessment Unspecified psychosis 298.9 Active Problem Depressive disorder, not elsewhere classified 311 Active Problem Need for prophylactic vaccination and inoculation, Inf luenza V04.81 Active Problem Acute upper respiratory infections of unspecified site 465.9 Active Problem Unspecified fasciitis 729.4 Active Problem 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 mode Problem Esophageal reflux 530.81 Active Problem Special screening for malignant neoplasms, colon V76.5 1 Active Problem Special screening examination, human papillomavirus [H PV] V73.81 Active Problem Generalized osteoarthrosis, unspecified site 715.00 Active Problem Unspecified breast screening V76.10 Active Problem Rash and other nonspecific skin eruption 782.1 Active Problem Other specified counseling V65.49 A ctive Problem Pain in soft tissues of limb 729.5 Active Problem Routine gynecological examination V72.31 Active Problem Calcaneal spur 726.73 Active Medications No Known Medications Procedures Procedure Coding System Code Date Psychotherapy, patient &/family, 30 minutes, established patient CPT-4 85207 Apr 03, 2015 Results No Known Results Summary Purpose [employer] Submission
--- OUTSIDE RECORDS SUMMARY | 2020-02-21 11:52 | XMS REPORT ---
Author Author Tarik POTTS Organization [facility] [place] Address [address] [place] [address] Care Team Providers Care Triage Nurse Name Role Phone ROMA POTTS Unavailable PROBLEMS Type Condition ICD9-CM Code [id number] Code Onset Dates Condition S tatus SNOMED Code Problem Pure hypercholesterolemia E78.0 Acti ve 555968139 Problem Major depression in partial remission F32.4 Active 55506019 Problem Major depressive disorder, recurrent episode, mild F33.0 Active 975183364 Problem Hearing loss of both ears H91.93 Acti ve 21294963 Problem Acquired hypothyroidism E03.9 Active 896036038 Problem Mild acid reflux K21.9 Active 235 974358 Problem Medicare welcome exam Z00.00 Active 835203283 Problem Calcaneal spur, unspecified laterality M77.30 Active 49869429 Problem Talipes varus, 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 [id number] [address] [place] [address] December, [facility] [place] [address] [facility] [id number] [address] [place] [id number] Nov, [place] [address] [facility] [id number] [address] [place] [address] Oct, Mild acid reflux K21.9 [facility] [place] [address] [facility] [id number] [address] [place] [address] 08 Sep, 2017 Major depressive disorder, s glenny episode, in partial remission F32.4 and Long-term use of high-risk medication Z79.899 [facility] [place] [address] [id number] [address] [place] [address] Aug, Encounter for immunization Z 23 [facility] [place] [address] [id number] [address] [place] [address] Jul, [facility] [place] [address] [facility] [id number] [address] [place] [address] Jun, Medicare annual wellness vis it, initial Z00.00 ; BMI 40.0-44.9, adult Z68.41 and Encounter for immunization Z23 [facility] [place] [address] [id number] [address] [place] [address] May, [facility] [place] [address] [facility] [id number] [address] [place] [address] May, Encounter for immunization Z 23 [facility] [place] [address] [id number] [address] [place] [address] May, Major depression in partial remission F32.4 [facility] [place] [address] [id number] [address] [place] [address] Apr, Hearing loss H91.90 ; Encoun ter for immunization Z23 and Encounter for screening mammogram for breast cancer Z12.31 [facility] [place] [address] [id number] [address] [place] [address] Mar, Acquired hypothyroidism E03. 9 [facility] [place] [address] [facility] [id number] [address] [place] [phone] Jan, Acquired hypothyroidism E03. 9 [facility] [place] [address] [facility] [id number] [address] [place] [address] Jan, Acute midline low back pain without sciatica M54.5 [facility] [place] [address] [id number] [address] [place] [id number] Jan, Peripheral edema R60.9 [facility] [place] [address] [facility] [id number] [address] [place] [address] Jan, Major depression in partial remission F32.4 [facility] [place] [address] [id number] [address] [place] [address] Jan, Localized edema R60.0 [facility] [place] [address] [id number] [address] [place] [address] Nov, Pure hypercholesterolemia E7 8.0 [facility] [place] [address] [id number] [address] [place] [address] Nov, Pure hypercholesterolemia E7 8.0 [facility] [place] [address] [id number] [address] [place] [address] Nov, Peripheral edema R60.9 [facility] [place] [address] [id number] [address] [place] [address] Oct, Major depression in partial remission F32.4 [facility] [place] [address] [id number] [address] [place] [address] Aug, [facility] [place] [address] [id number] [address] [place] [address] Aug, Elevated blood pressure read ing R03.0 [facility] [place] [address] [id number] [address] [place] [address] Aug, [facility] [place] [address] [id number] [address] [place] [address] Jun, Major depression in partial remission F32.4 [facility] [place] [address] [id number] [address] [place] [address] Apr, Major depressive disorder, r ecurrent episode, mild F33.0 [facility] [place] [address] [id number] [address] [place] [address] Mar, Encounter for well woman exa m with routine gynecological exam Z01.419 and Breast cancer screening Z12.39 [facility] [place] [address] [id number] [address] [place] [address] Jan, 2016 Hypothyroidism, unspecified type E03.9 [facility] [place] [address] [id number] [address] [place] [address] Jan, Major depressive disorder, r ecurrent episode, mild F33.0 [facility] [place] [address] [id number] [address] [place] [address] 30 Jan, 2016 Abscess L02.91 [facility] [place] [address] [id number] [address] [place] [address] Jan, Furuncle L02.92 [facility] [place] [address] [id number] [address] [place] [address] 16 Jan, 2016 Major depression in partial remission F32.4 [facility] [place] [address] [id number] [address] [place] [phone] 13 Jan, 2016 Major depressive disorder, r ecurrent episode, mild F33.0 [facility] [address] [id number] [address] [place] [address] December, Acute bacterial conjunctivit is of left eye H10.022 [facility] [place] [address] [id number] [address] [place] [address] December, Major depressive disorder, r ecurrent episode, mild F33.0 [facility] [place] [address] [id number] [address] [place] [address] Nov, [facility] [place] [address] [id number] [address] [place] [address] Nov, Major depressive disorder, r ecurrent episode, mild F33.0 [facility] [place] [address] [id number] [address] [place] [address] 18 Nov, 2015 Hearing loss H91.90 [facility] [place] [address] [id number] [address] [place] [address] 17 Oct, 2015 Major depression in partial remission F32.4 [facility] [place] [address] [id number] [address] [place] [id number] 15 Oct, 2015 Pneumonia J18.9 [facility] [address] [id number] [address] [place] [address] Oct, Influenza A J10.1 ; Fever, u nspecified R50.9 ; Conjunctivitis H10.9 and Cough R05 [place] [address] [place] [id number] [address] [place] [address] 10 Oct, 2015 Major depressive disorder, r ecurrent episode, severe, with psychotic behavior F33.3 [place] [id number] [place] [address] Aug, [place] [address] [address] Aug, Acquired hypothyroidism E03. 9 and Pure hypercholesterolemia E78.0 [place] [address] [place] [id number] [address] [place] [address] Aug, Major depressive disorder, r ecurrent episode, severe, with psychotic behavior F33.3 [place] [id number] [place] [address] Jul, [place] [address] [place] [id number] [address] [place] [address] Jul, Major depressive disorder, r ecurrent episode, severe, with psychotic behavior F33.3 [place] [address] [place] [id number] [address] [place] [address] Jun, Major depressive disorder, r ecurrent episode, severe, with psychotic behavior F33.3 [place] [address] [place] [id number] [address] [place] [address] May, [place] [address] [place] [id number] [address] [place] [address] May, Major depressive disorder, r ecurrent episode, severe, with psychotic behavior F33.3 [place] [address] [place] [id number] [address] [place] [address] May, Major depressive disorder, r ecurrent episode, severe, with psychotic behavior F33.3 [place] [address] [place] [id number] [address] [place] [address] Apr, [facility] [place] [address] [facility] [id number] [address] [place] [address] Apr, Depressive disorder, not els ewhere classified 311 and Unspecified psychosis 298.9 [facility] [place] [address] [facility] [id number] [address] [place] [address] Apr, Depression 311 and Hard of h earing 389.9 [facility] [place] [address] [facility] [id number] [address] [place] [address] Apr, Schizoaffective disorder 295 .70 [place] [address] [facility] [id number] [address] [place] [address] 08 Apr, 2015 Major depressive disorder, r ecurrent episode, severe, specified as with psychotic behavior 296.34 [place] [address] [place] [id number] [address] [place] [address] Apr, Psychosis 298.9 and Depressi on 311 [place] [address] [place] [id number] [address] [place] [address] Apr, Depressive disorder, not els ewhere classified 311 and Unspecified psychosis 298.9 [place] [address] [place] [id number] [address] [place] [address] Mar, Screening for cervical cance r V76.2 ; Well woman exam with routine gynecological exam V72.31 ; Colon cancer screening V76.51 ; Breast cancer screening V76.10 ; Irritable bowel syndrome 564.1 and Psychosis 298.9 [facility] [place] [address] [facility] [id number] [address] [place] [address] Mar, Psychosis 298.9 [place] [address] [facility] [id number] [address] [place] [address] Mar, Unspecified psychosis 298.9 [place] [address] [facility] [id number] [address] [place] [address] Nov, [place] [address] [place] [id number] [address] [place] [address] Nov, [facility] [address] [id number] [address] [place] [address], [place] [address] Oct, [facility] [address] [id number] [address] [place] [address], [place] [address] Oct, [facility] [address] [id number] [address] [place] [address], [place] [address] Jul, [facility] [address] [id number] [address] [place] [address], [place] [address] Jul, [facility] [address] [id number] [address] [place] [address], [place] [address] May, [facility] [address] [id number] [address] [place] [address], [place] [address] Apr, [facility] [address] [id number] [address] [place] [address], [place] [address] Apr, [facility] [address] [id number] [address] [place] [address], [place] [address] Apr, [facility] [address] [id number] [address] [place] [address], [place] [address] Apr, [facility] [address] [id number] [address] [place] [address], [place] [address] Apr, [facility] [address] [id number] [address] [place] [address], [place] [address] Mar, [facility] [address] [id number] [address] [place] [address], [place] [address] Mar, [facility] [address] [id number] [address] [place] [address], [place] [address] Mar, [facility] [address] [id number] [address] [place] [address], [place] [address] Mar, [facility] [address] [id number] [address] [place] [address], [place] [address] Mar, [facility] [address] [id number] [facility] [place] [address] Mar, [facility] [address] [id number] [address] [place] [address], [place] [address] Mar, [facility] [address] [id number] [address] [place] [address], [place] [address] Mar, [facility] [address] [id number] [address] [place] [address], [place] [address] Mar, [facility] [address] [id number] [address] [place] [address], [place] [address] Mar, [facility] [address] [id number] [address] [place] [address], [place] [address] Jan, [facility] [address] [id number] [address] [place] [address], [place] [address] Jan, [facility] [address] [id number] [address] [place] [address], [place] [address] December, [facility] [address] [id number] [address] [place] [address], [place] [address] December, [facility] [address] [id number] [address] [place] [address], [place] [address] Nov, [facility] [address] [id number] [address] [place] [address], [place] [address] Nov, [facility] [address] [id number] [address] [place] [address], [place] [address] Sep, [facility] [address] [id number] [address] [place] [address], [place] [address] Sep, [facility] [address] [id number] [address] [place] [address], [place] [address] Sep, [facility] [address] [id number] [address] [place] [address], [place] [address] Sep, [facility] [address] [id number] [address] [place] [address], [place] [address] Jun, [facility] [address] [id number] [address] [place] [address], [place] [address] 14 Jun, 2013 [facility] [address] [id number] [address] [place] [address], [place] [address] Jun, [facility] [address] [id number] [address] [place] [address], [place] [address] Jun, [facility] [address] [id number] [address] [place] [address], [place] [address] May, [facility] [address] [id number] [address] [place] [address], [place] [address] May, [facility] [address] [id number] [address] [place] [address], [place] [address] Apr, [facility] [address] [id number] [address] [place] [address], [place] [address] Mar, [facility] [address] [id number] [address] [place] [address], [place] [address] Mar, [facility] [address] [id number] [address] [place] [address], [place] [address] Mar, [facility] [address] [id number] [address] [place] [address], [place] [address] Mar, [facility] [address] [id number] [address] [place] [address], [place] [address] Mar, [facility] [address] [id number] [address] [place] [address] Jan, [facility] [address] [id number] [address] [place] [address], [place] [address] Jan, [facility] [address] [id number] [address] [place] [address], [place] [address] Jan, [facility] [address] [id number] [address] [place] [address], [place] [address] December, [facility] [address] [id number] [address] [place] [address], [place] [address] 13 Oct, 2012 [facility] [address] [id number] [address] [place] [address], [place] [address] 12 Oct, 2012 [facility] [address] [id number] [address] [place] [address], [place] [address] Oct, [facility] [address] [id number] [address] [place] [address], [place] [address] Oct, [facility] [address] [id number] [address] [place] [address], [place] [address] Aug, [facility] [address] [id number] [address] [place] [address], [place] [address] Jun, [facility] [address] [id number] [address] [place] [address], [place] [address] Jun, [facility] [address] [id number] [address] [place] [address], [place] [address] Jun, [facility] [address] [id number] [address] [place] [address], [place] [address] Jun, [facility] [address] [id number] [address] [place] [address], [place] [address] 05 May, 2012 [facility] [address] [id number] [address] [place] [address], [place] [address] Apr, [facility] [address] [id number] [address] [place] [address], [place] [address] Mar, [facility] [address] [id number] [address] [place] [address], [place] [address] Jan, [facility] [address] [id number] [address] [place] [address], [place] [address] Jan, [facility] [address] [id number] [address] [place] [address], [place] [address] December, [facility] [address] [id number] [address] [place] [address], [place] [address] December, [facility] [address] [id number] [address] [place] [address] December, [facility] [address] [id number] [address] [place] [address] December, [facility] [address] [id number] [address] [place] [address], [place] [address] Nov, [facility] [address] [id number] [address] [place] [address] Oct, [facility] [address] [id number] [address] [place] [address], [place] [address] Sep, [facility] [address] [id number] [address] [place] [address], [place] [id number] Sep, [facility] [place] [address] [id number] [address] [place] [phone] Sep, [facility] [place] [address] [id number] [address] [place] [phone] Sep, [facility] [place] [address] [id number] [address] [place] [id number] Aug, [facility] [place] [address] [id number] [address] [place] [phone] Jun, [facility] [place] [address] [id number] [address] [place] [phone] May, [facility] [place] [address] [id number] [address] [place] [phone] Mar, [facility] [place] [address] [id number] [address] [place] [phone] Jun, [facility] [place] [address] [id number] [address] [place] [phone] May, [facility] [place] [address] [id number] [address] [place] [phone] May, IMMUNIZATIONS No Known Immunizations SOCIAL HISTORY Never Assessed REASON FOR VISIT Swelling in her ankles F/U- Za SARGENT PLAN OF CARE Activity Details Follow Up prn Reason: VITAL SIGNS Height 65 in 2017-02-16 Weight 251.4 lbs 2017-02-16 Temperature 98.8 degrees Fahrenheit 2017-02-16 Heart Rate 68 bpm 2017-02-16 Respiratory Rate 18 2017-02-16 BMI 41.83 kg/m2 2017-02-16 Blood pressure systolic 124 mmHg 2017-02-16 Blood pressure diastolic 73 mmHg 2017-02-16 MEDICATIONS Medication Instructions Dosage Frequency Start Date End Date Duration S tatus Promethazine-Codeine 6.25-10 MG/5ML Orally every 6 hrs 5 ml as need ed 6h Oct, Active Fluoxetine HCl 10 mg Orally Once in the morning 3 capsules Active Levothyroxine Sodium 125 MCG TAKE ONE TABLET BY MOUTH ONCE DAILY 90 Active Lasix 40 mg Orally twice a day in AM and noon 1 tablet Jan, 2 017 05 days Active Lovastatin 20 MG TAKE ONE TABLET BY MOUTH ONCE DAILY 90 Active Omeprazole 20 MG TAKE ONE CAPSULE BY MOUTH TWICE DAILY 30 Active Bentyl 10 MG Orally Four times a day befo re meals and at bedtime for urgency with bowel movements 1 capsule 30 Acti ve Trazodone HCl 50 mg Orally Once at bedtime for sleep 1 tablet Active Aripiprazole 2 MG Orally per day in the morning 1 tablet Active RESULTS No Results PROCEDURES Procedure Date Ordered Result Body Site [facility]IS[facility] ESTABLISHED PATIENT February 16, 2017 INSTRUCTIONS MEDICATIONS ADMINISTERED No Known Medications MEDICAL (GENERAL) HISTORY Type Description Date Medical History depression Medical History hypothryroidism Medical History hyperlipidemia Medical History trauma: Stroke - with L side faci al drooping Surgical History hysterectomy Surgical History cholecystectomy Surgical History gall bladder removal Hospitalization History surgeries Hospitalization History stroke
--- OUTSIDE RECORDS SUMMARY | 2020-02-21 11:52 | XMS REPORT ---
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 Ac tive Problem Edema, unspecified type R60.9 Acti ve Problem Acquired hypothyroidism E03.9 Acti ve Problem Pure hypercholesterolemia E78.0 Ac tive Problem Major depression in partial remission F32.4 Active Problem Major depressive disorder, recurrent episode, mild F33 .0 Active Medications Medication Code System Code Instructions Start Date End Date Status Dosage Bentyl [facility] 80085722104 10 MG Orally Fou r times a day before meals and at bedtime for urgency with bowel movements 1 capsule Fluoxetine HCl [facility] [address]-80 10 mg Orally Once in the morning 3 capsules Trazodone HCl [facility] 47115741825 50 MG Orally Once at bedtime for sleep 1 tablet Levothyroxine Sodium [facility] [address]-12 125 MCG TAKE ONE TABLET BY MOUTH ONCE DAILY Prozac [facility] 63421923426 10 MG Orally Once a day 3 capsule in the morning Aripiprazole [facility] [address]-61 10 mg Orally at bedtime 1 tablet Promethazine-Codeine [facility] [address]-72 6.25-10 MG/5ML Oral ly every 6 hrs October 16, 2015 5 ml as needed Lovastatin [facility] 41541593545 20 MG TAKE ONE TABLET BY MOUTH ONCE DAILY Omeprazole [facility] 38201754648 20 MG TAKE ONE CAPSULE BY MOUTH TWICE DAILY Procedures Procedure Coding System Code Date Office Visit, Est Pt., Level 3 CPT-4 65978 Jun 03, 2016 [facility] VISIT ESTABLISHED PATIENT CPT-4 G0467 N ov 2015 Vital Signs Date/Time: Jun 03, 2016 Cardiac Monitoring Heart Rate 84 bpm Weight 250.7 lbs Height 65 in BMI 41.71 Index Blood Pressure Diastolic 68 mmHg Blood Pressure Systolic 135 mmHg Results No Known Results Summary Purpose [employer] Submission
--- OUTSIDE RECORDS SUMMARY | 2020-02-21 11:52 | XMS REPORT ---
Author Author Tarik POTTS Organization [facility] Address [address] [place] [address] Care Team Providers Care Irrigation Engineer Name Role Phone ROMA POTTS Unavailable PROBLEMS Type Condition ICD9-CM Code COO67-AB Code Onset Dates Condition S tatus SNOMED Code Problem Hearing loss of both ears H91.93 Acti ve 50403390 Problem Pure hypercholesterolemia E78.0 Acti ve 030081429 Problem Acquired hypothyroidism E03.9 Active 560545287 Problem Hearing loss H91.90 Active 9674100 1 Problem Edema, unspecified type R60.9 Active 181608295 Problem Major depression in partial remission F32.4 Active 61872931 Problem Major depressive disorder, recurrent episode, mild F33.0 Active 862963834 Problem Calcaneal spur, unspecified laterality M77.30 Active 72140702 Problem Talipes varus, 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 96349508 ALLERGIES Substance Reaction Event Type Date Status Penicillins Unknown Non Drug Allergy Nov, Active SOCIAL HISTORY Never Assessed PLAN OF CARE Activity Details Follow Up prn Reason: VITAL SIGNS Height 65 in 2016-11-19 Weight 247.7 lbs 2016-11-19 Temperature 97.5 degrees Fahrenheit 2016-11-19 Heart Rate 72 bpm 2016-11-19 Respiratory Rate 20 2016-11-19 BMI 41.21 kg/m2 2016-11-19 Blood pressure systolic 142 mmHg 2016-11-19 Blood pressure diastolic 72 mmHg 2016-11-19 MEDICATIONS Medication Instructions Dosage Frequency Start Date End Date Duration S tatus Lovastatin 20 MG TAKE ONE TABLET BY MOUTH ONCE DAILY 90 Active Levothyroxine Sodium 125 MCG TAKE ONE TABLET BY MOUTH ONCE DAILY 90 Active Promethazine-Codeine 6.25-10 MG/5ML Orally every 6 hrs 5 ml as need ed 6h 15 Oct, 2015 Active Aripiprazole 5 mg Orally per day in the morning 1 tablet Active Fluoxetine HCl 10 mg Orally Once in the morning 3 capsules 30 Active Bentyl 10 MG Orally Four times a day befo re meals and at bedtime for urgency with bowel movements 1 capsule 30 Acti ve Omeprazole 20 MG TAKE ONE CAPSULE BY MOUTH TWICE DAILY 30 Active Trazodone HCl 50 mg Orally Once at bedtime for sleep 1 tablet Active RESULTS No Results PROCEDURES Procedure Date Ordered Result Body Site [facility] VISIT ESTABLISHED PATIENT November 19, 2016 IMMUNIZATIONS No Known Immunizations MEDICAL (GENERAL) HISTORY Type Description Date Medical History depression Medical History hypothryroidism Medical History hyperlipidemia Medical History trauma: Stroke - with L side faci al drooping Surgical History hysterectomy Surgical History cholecystectomy Surgical History gall bladder removal Hospitalization History surgeries Hospitalization History stroke
--- OUTSIDE RECORDS SUMMARY | 2020-02-21 11:52 | XMS REPORT ---
Author Author Tarik POTTS Organization [facility] Address [address] [place] [address] Care Team Providers Care Sprayer Insecticide Name Role Phone ROMA POTTS Unavailable PROBLEMS Type Condition ICD9-CM Code NUQ80-AQ Code Onset Dates Condition S tatus SNOMED Code Problem Acquired hypothyroidism E03.9 Active 526162200 Problem Hearing loss of both ears H91.93 Acti ve 85578657 Problem Edema, unspecified type R60.9 Active 488712370 Problem Calcaneal spur, unspecified laterality M77.30 Active 52274003 Problem Major depressive disorder, recurrent episode, mild F33.0 Active 303765313 Problem Pure hypercholesterolemia E78.0 Acti ve 575952845 Problem Talipes varus, 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
--- OUTSIDE RECORDS SUMMARY | 2020-02-21 11:52 | XMS REPORT ---
Author Author Tarik POTTS Organization [facility] Address [address] [place] [address] Care Team Providers Care Representative Phlebotomy Services Name Role Phone ROMA POTTS Unavailable PROBLEMS Type Condition ICD9-CM Code NDG74-GC Code Onset Dates Condition S tatus SNOMED Code Problem Pure hypercholesterolemia E78.0 Acti ve 211373464 Problem Major depression in partial remission F32.4 Active 68987393 Problem Major depressive disorder, recurrent episode, mild F33.0 Active 996830886 Problem Hearing loss of both ears H91.93 Acti ve 06564334 Problem Acquired hypothyroidism E03.9 Active 413447697 Problem Mild acid reflux K21.9 Active 235 584853 Problem Medicare welcome exam Z00.00 Active 102716627 Problem Calcaneal spur, unspecified laterality M77.30 Active 29636734 Problem Talipes varus, 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 9 [facility] [address] [id number] [address] [place] [phone] Nov, Pure hypercholesterolemia E7 8.0 ; Peripheral edema R60.9 and Acquired hypothyroidism E03.9 [facility] [address] [id number] [address] [place] [address] Oct, Mild acid reflux K21.9 [place] [id number] [id number] [address] [place] [id number] 08 Sep, 2017 Major depressive disorder, s glenny episode, in partial remission F32.4 and Long-term use of high-risk medication Z79.899 [place] [address] [id number] [address] [place] [phone] Aug, Encounter for immunization Z 23 [place] [id number] [id number] [address] [place] [address] Jul, [place] [address] [facility] [id number] [address] [place] [address] Jun, Medicare annual wellness vis it, initial Z00.00 ; BMI 40.0-44.9, adult Z68.41 and Encounter for immunization Z23 [place] [address] [facility] [id number] [address] [place] [id number] 10 May, 2017 [place] [address] [facility] [id number] [address] [place] [address] May, Encounter for immunization Z 23 [place] [address] [facility] [id number] [address] [place] [address] May, Major depression in partial remission F32.4 [place] [address] [facility] [id number] [address] [place] [address] Apr, Hearing loss H91.90 ; Encoun ter for immunization Z23 and Encounter for screening mammogram for breast cancer Z12.31 [place] [address] [id number] [address] [place] [id number] Mar, Acquired hypothyroidism E03. 9 [place] [address] [facility] [id number] [address] [place] [address] Jan, Acquired hypothyroidism E03. 9 [place] [address] [facility] [id number] [address] [place] [address] Jan, Acute midline low back pain without sciatica M54.5 [place] [address] [facility] [id number] [address] [place] [phone] Jan, Peripheral edema R60.9 [facility] [address] [id number] [address] [place] [phone] Jan, Major depression in partial remission F32.4 [facility] [address] [id number] [address] [place] [id number] Jan, Localized edema R60.0 [facility] [address] [id number] [address] [place] [id number] Nov, Pure hypercholesterolemia E7 8.0 [facility] [address] [id number] [address] [place] [phone] Nov, Pure hypercholesterolemia E7 8.0 [facility] [address] [id number] [address] [place] [id number] Nov, Peripheral edema R60.9 [facility] [address] [id number] [address] [place] [address] Oct, Major depression in partial remission F32.4 [facility] [address] [id number] [address] [place] [id number] Aug, [facility] [address] [id number] [address] [place] [phone] Aug, Elevated blood pressure read ing R03.0 [facility] [address] [id number] [address] [place] [phone] Aug, [facility] [address] [facility] [id number] [address] [place] [phone] Jun, Major depression in partial remission F32.4 [facility] [address] [facility] [id number] [address] [place] [address] Apr, Major depressive disorder, r ecurrent episode, mild F33.0 [facility] [address] [id number] [address] [place] [address] Mar, 2016 Encounter for well woman exa m with routine gynecological exam Z01.419 and Breast cancer screening Z12.39 [facility] [address] [id number] [address] [place] [id number] Jan, Hypothyroidism, unspecified type E03.9 [facility] [address] [id number] [address] [place] [address] Jan, Major depressive disorder, r ecurrent episode, mild F33.0 [facility] [address] [id number] [address] [place] [id number] 30 Jan, 2016 Abscess L02.91 [place] [address] [id number] [address] [place] [phone] Jan, Furuncle L02.92 [place] [address] [id number] [address] [place] [id number] 16 Jan, 2016 Major depression in partial remission F32.4 [place] [address] [id number] [address] [place] [phone] Jan, Major depressive disorder, r ecurrent episode, mild F33.0 [facility] [address] [id number] [address] [place] [address] December, Acute bacterial conjunctivit is of left eye H10.022 [facility] [address] [id number] [address] [place] [address] December, Major depressive disorder, r ecurrent episode, mild F33.0 [facility] [address] [id number] [address] [place] [address] Nov, [facility] [address] [id number] [address] [place] [id number] Nov, Major depressive disorder, r ecurrent episode, mild F33.0 [facility] [address] [id number] [address] [place] [id number] Nov, Hearing loss H91.90 [facility] [address] [id number] [address] [place] [phone] Oct, Major depression in partial remission F32.4 [facility] [address] [facility] [id number] [address] [place] [phone] 15 Oct, 2015 Pneumonia J18.9 [facility] [id number] [address] [place] [id number] 10 Oct, 2015 Influenza A J10.1 ; Fever, u nspecified R50.9 ; Conjunctivitis H10.9 and Cough R05 [facility] [id number] [place] [address] Oct, Major depressive disorder, r ecurrent episode, severe, with psychotic behavior F33.3 [place] [address] [address] Aug, [place] [address] [address] Aug, Acquired hypothyroidism E03. 9 and Pure hypercholesterolemia E78.0 [place] [address] [place] [id number] [address] [place] [address] Aug, Major depressive disorder, r ecurrent episode, severe, with psychotic behavior F33.3 [place] [address] [place] [id number] [address] [place] [address] Jul, [place] [address] [address] Jul, Major depressive disorder, r ecurrent episode, severe, with psychotic behavior F33.3 [place] [id number] [place] [address] Jun, Major depressive disorder, r ecurrent episode, severe, with psychotic behavior F33.3 [place] [address] [place] [id number] [place] [id number] May, [place] [address] [place] [id number] [place] [address] May, Major depressive disorder, r ecurrent episode, severe, with psychotic behavior F33.3 [place] [address] [place] [id number] [place] [id number] 08 May, 2015 Major depressive disorder, r ecurrent episode, severe, with psychotic behavior F33.3 [facility] [address] [facility] [id number] [address] [place] [address] Apr, [facility] [address] [place] [id number] [place] [address] Apr, Depressive disorder, not els ewhere classified 311 and Unspecified psychosis 298.9 [facility] [address] [place] [id number] [place] [address] Apr, Depression 311 and Hard of h earing 389.9 [place] [address] [place] [id number] [place] [address] Apr, Schizoaffective disorder 295 .70 [place] [address] [place] [id number] [place] [address] Apr, Major depressive disorder, r ecurrent episode, severe, specified as with psychotic behavior 296.34 [place] [address] [place] [address] Apr, Psychosis 298.9 and Depressi on 311 [place] [address] [place] [id number] [place] [id number] Apr, Depressive disorder, not els ewhere classified 311 and Unspecified psychosis 298.9 [place] [address] [place] [id number] [place] [address] Mar, Screening for cervical cance r V76.2 ; Well woman exam with routine gynecological exam V72.31 ; Colon cancer screening V76.51 ; Breast cancer screening V76.10 ; Irritable bowel syndrome 564.1 and Psychosis 298.9 [place] [address] [place] [id number] [place] [id number] Mar, Psychosis 298.9 [place] [address] [place] [id number] [place] [address] Mar, Unspecified psychosis 298.9 [facility] [address] [id number] [address] [place] [address], [place] [address] 14 Nov, 2014 [facility] [address] [id number] [address] [place] [address], [place] [address] Nov, [facility] [address] [id number] [address] [place] [address], [place] [address] Oct, [facility] [address] [id number] [address] [place] [address], [place] [address] Oct, [facility] [address] [id number] [address] [place] [address], [place] [address] Jul, [facility] [address] [id number] [address] [place] [address], [place] [address] Jul, [facility] [address] [id number] [address] [place] [address], [place] [address] May, [facility] [address] [id number] [address] [place] [address] Apr, [facility] [address] [id number] [address] [place] [address], [place] [address] Apr, [facility] [address] [id number] [address] [place] [phone] Apr, [facility] [address] [id number] [address] [place] [address] Apr, [facility] [address] [id number] [address] [place] [address] Apr, [facility] [address] [id number] [address] [place] [address], [place] [address] Mar, [facility] [address] [id number] [address] [place] [address], [place] [address] Mar, [facility] [address] [id number] [address] [place] [address] Mar, [facility] [address] [id number] [address] [place] [id number] Mar, [facility] [address] [id number] [facility] [place] [address] Mar, [facility] [address] [id number] [address] [place] [address], [place] [address] Mar, [facility] [address] [id number] [address] [place] [address], [place] [address] Mar, [facility] [address] [id number] [address] [place] [address], [place] [address] Mar, [facility] [address] [id number] [address] [place] [address], [place] [address] Mar, [facility] [address] [id number] [address] [place] [address], [place] [address] Mar, [facility] [address] [id number] [address] [place] [address], [place] [address] Jan, [facility] [address] [id number] [address] [place] [address], [place] [address] Jan, [facility] [address] [id number] [address] [place] [address], [place] [address] December, [facility] [address] [id number] [address] [place] [address], [place] [address] December, [facility] [address] [id number] [address] [place] [address], [place] [address] Nov, [facility] [address] [id number] [address] [place] [address], [place] [address] Nov, [facility] [address] [id number] [address] [place] [address], [place] [address] Sep, [facility] [address] [id number] [address] [place] [address], [place] [address] Sep, [facility] [address] [id number] [address] [place] [address], [place] [address] Sep, [facility] [address] [id number] [address] [place] [address], [place] [address] Sep, [facility] [address] [id number] [address] [place] [address], [place] [address] Jun, [facility] [address] [id number] [address] [place] [address], [place] [address] Jun, [facility] [address] [id number] [address] [place] [address], [place] [address] Jun, [facility] [address] [id number] [address] [place] [address], [place] [address] Jun, [facility] [address] [id number] [address] [place] [address], [place] [address] May, [facility] [address] [id number] [address] [place] [address], [place] [address] May, [facility] [address] [id number] [address] [place] [address], [place] [address] Apr, [facility] [address] [id number] [address] [place] [address], [place] [address] Mar, [facility] [address] [id number] [address] [place] [address], [place] [address] Mar, [facility] [address] [id number] [address] [place] [address], [place] [address] Mar, [facility] [address] [id number] [address] [place] [address], [place] [address] Mar, [facility] [address] [id number] [address] [place] [address], [place] [address] Mar, [facility] [address] [id number] [address] [place] [address], [place] [address] Jan, [facility] [address] [id number] [address] [place] [address], [place] [address] Jan, [facility] [address] [id number] [address] [place] [address], [place] [address] Jan, [facility] [address] [id number] [address] [place] [address], [place] [address] December, [facility] [address] [id number] [address] [place] [address], [place] [address] Oct, [facility] [address] [id number] [address] [place] [address], [place] [address] Oct, [facility] [address] [id number] [address] [place] [address], [place] [address] Oct, [facility] [address] [id number] [address] [place] [address], [place] [address] Oct, [facility] [address] [id number] [address] [place] [address], [place] [address] Aug, [facility] [address] [id number] [address] [place] [address], [place] [address] Jun, [facility] [address] [id number] [address] [place] [address], [place] [address] 16 Jun, 2012 [facility] [address] [id number] [address] [place] [address], [place] [address] Jun, [facility] [address] [id number] [address] [place] [address], [place] [address] Jun, [facility] [address] [id number] [address] [place] [address], [place] [address] 05 May, 2012 [facility] [address] [id number] [address] [place] [address], [place] [address] 10 Apr, 2012 [facility] [address] [id number] [address] [place] [address], [place] [address] Mar, [facility] [address] [id number] [address] [place] [address], [place] [address] Jan, [facility] [address] [id number] [address] [place] [address], [place] [address] Jan, [facility] [address] [id number] [address] [place] [address], [place] [address] December, [facility] [address] [id number] [address] [place] [address], [place] [address] December, [facility] [address] [id number] [address] [place] [address], [place] [address] December, [facility] [address] [id number] [address] [place] [address], [place] [address] December, [facility] [address] [id number] [address] [place] [address], [place] [address] Nov, [facility] [address] [id number] [address] [place] [address], [place] [address] Oct, [facility] [address] [id number] [address] [place] [address], [place] [address] Sep, [facility] [address] [id number] [address] [place] [address], [place] [address] Sep, [facility] [address] [id number] [address] [place] [address], [place] [address] Sep, [facility] [address] [id number] [address] [place] [address], [place] [address] Sep, [facility] [address] [id number] [address] [place] [address], [place] [address] Aug, [facility] [address] [id number] [address] [place] [address], [place] [address] Jun, [facility] [address] [id number] [address] [place] [address], [place] [address] May, [facility] [address] [id number] [address] [place] [address], [place] [address] Mar, [facility] [address] [id number] [address] [place] [address], [place] [address] Jun, [facility] [address] [id number] [address] [place] [address], [place] [address] May, [facility] [address] [facility] [id number] [address] [place] [address] May, IMMUNIZATIONS Vaccine Route Administration Date Status PCV 13 IM Intramuscular Apr 13, 2017 Administered SOCIAL HISTORY Never Assessed REASON FOR VISIT Annual physical (female), with no conserns- [place] PLAN OF CARE Activity Details Follow Up 4 Months Reason:hypothyroid VITAL SIGNS Height 65 in 2017-04-13 Weight 247.9 lbs 2017-04-13 Temperature 97.8 degrees Fahrenheit 2017-04-13 Heart Rate 66 bpm 2017-04-13 Respiratory Rate 18 2017-04-13 BMI 41.25 kg/m2 2017-04-13 Blood pressure systolic 130 mmHg 2017-04-13 Blood pressure diastolic 74 mmHg 2017-04-13 MEDICATIONS Medication Instructions Dosage Frequency Start Date End Date Duration S tatus Trazodone HCl 50 mg Orally Once at bedtime for sleep 1 tablet Active Promethazine-Codeine 6.25-10 MG/5ML Orally every 6 hrs 5 ml as need ed 6h 15 Oct, 2015 Active Omeprazole 20 MG TAKE ONE CAPSULE BY MOUTH TWICE DAILY 30 Active Lasix 40 mg Orally twice a day in AM and noon 1 tablet Jan, 2 017 05 days Active Aripiprazole 2 MG Orally per day in the morning 1 tablet Active Levothyroxine Sodium 125 MCG TAKE ONE TABLET BY MOUTH ONCE DAILY 90 Active Bentyl 10 MG Orally Four times a day befo re meals and at bedtime for urgency with bowel movements 1 capsule 30 Acti ve Fluoxetine HCl 10 mg Orally Once in the morning 3 capsules Active Lovastatin 20 MG TAKE ONE TABLET BY MOUTH ONCE DAILY 90 Active RESULTS Name Result Date Reference Range Mammogram, Bilateral Screening 2017-04-23 PROCEDURES Procedure Date Ordered Result Body Site PCV 13 Apr 13, 2017 SINGLE IMMUNIZATION ADMIN Apr 13, 2017 [facility] VISIT ESTABLISHED PATIENT Apr 13, 2017 INSTRUCTIONS MEDICATIONS ADMINISTERED No Known Medications MEDICAL (GENERAL) HISTORY Type Description Date Medical History depression Medical History hypothryroidism Medical History hyperlipidemia Medical History trauma: Stroke - with L side faci al drooping Surgical History hysterectomy Surgical History cholecystectomy Surgical History gall bladder removal Hospitalization History surgeries Hospitalization History stroke
--- OUTSIDE RECORDS SUMMARY | 2020-02-21 11:52 | XMS REPORT ---
Author Author Tarik WAYNE [facility] eClinicalWorks Address Unknown Phone Unavailable Care Team Providers [facility] Name Role Phone MICHAELA WAYNE Unavailable Allergies No Known Allergies Problems Problem Type Condition Code Onset Dates Condition Statu s Problem Calcaneal spur 726.73 Active Problem Screening for lipoid disorders V77.91 Active Problem Unspecified disorders of bursae and tendons in shoulde r region 726.10 Active Problem Edema 782.3 Active Assessment Major depressive disorder, r ecurrent episode, severe, with psychotic behavior F33.3 Active Problem Unspecified fasciitis 729.4 Active Problem Major depressive disorder, r ecurrent episode, severe, with psychotic behavior F33.3 Active Problem Acute upper respiratory infections of [...] Coding System Code Date Psychotherapy, patient &/family, 45 minutes, established patient CPT-4 [id number] Jun 04, 2015 Results No Known Results Summary Purpose eClinicalWorks Submission
--- OUTSIDE RECORDS SUMMARY | 2020-02-21 11:52 | XMS REPORT ---
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 mode Problem Edema 782.3 Active Problem Pain in joint, shoulder region 719.41 Active Problem Screening for lipoid disorders V77.91 Active Problem Need for prophylactic vaccination and inoculation, Inf luenza V04.81 Active Problem Acute upper respiratory infections of unspecified site 465.9 Active Problem Special screening examination, human papillomavirus [H PV] V73.81 Active Problem Generalized osteoarthrosis, unspecified site 715.00 Active Assessment Psychosis 298.9 Active Problem Screening for malignant neoplasm of the cervix V76.2 Active Problem Other specified counseling V65.49 A ctive Problem Routine gynecological examination V72.31 Active Problem Esophageal reflux 530.81 Active Problem Unspecified breast screening V76.10 Active Problem Special screening for malignant neoplasms, colon V76.5 1 Active Problem Rash and other nonspecific skin eruption 782.1 Active Medications Medication Code System Code Instructions Start Date End Date Status Dosage Shirley [facility] [address]-71 5 MG Orally Once a day at hs Mar 20, 2015 1 tablet Results No Known Results Summary Purpose [employer] Submission
--- OUTSIDE RECORDS SUMMARY | 2020-02-21 11:52 | XMS REPORT ---
Author Author Tarik WAYNE [facility] [employer] Address Unknown Phone Unavailable Care Team Providers Care Protective Signal Operations Supervisor Name Role Phone MICHAELA WAYNE Unavailable Allergies No Known Allergies Problems Problem Type Condition Code Onset Dates Condition Statu s Problem Screening for lipoid disorders V77.91 Active Problem Acute upper respiratory infections of unspecified site 465.9 Active Problem Pain in joint, shoulder region 719.41 Active Problem Depressive disorder, not elsewhere classified 311 Active Problem Special screening examination, human papillomavirus [H PV] V73.81 Active Problem Unspecified psychosis 298.9 Active Problem Screening for malignant neoplasm of the cervix V76.2 Active Assessment Major depressive disorder, r ecurrent episode, severe, with psychotic behavior F33.3 Active Problem Major depressive disorder, r ecurrent episode, severe, with psychotic behavior F33.3 Active Problem 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 mode Problem Need for prophylactic vaccination and inoculation, Inf luenza V04.81 Active Problem Edema 782.3 Active Problem Unspecified fasciitis 729.4 Active Problem Special screening for malignant neoplasms, colon V76.5 1 Active Problem Other specified counseling V65.49 A ctive Problem Generalized osteoarthrosis, unspecified site 715.00 Active Problem Esophageal reflux 530.81 Active Problem Rash and other nonspecific skin eruption 782.1 Active Problem Pain in soft tissues of limb 729.5 Active Problem Routine gynecological examination V72.31 Active Problem Calcaneal spur 726.73 Active Problem Unspecified breast screening V76.10 Active Problem Unspecified disorders of bursae and tendons in shoulde r region 726.10 Active Medications No Known Medications Procedures Procedure Coding System Code Date Psychotherapy, patient &/family, 45 minutes, established patient CPT-4 38592 May 10, 2015 Results No Known Results Summary Purpose [employer] Submission
--- OUTSIDE RECORDS SUMMARY | 2020-02-21 11:52 | XMS REPORT ---
Author Author Tarik POTTS Organization [employer] Address Unknown Phone Unavailable Care Team Providers Care Client Consultant Name Role Phone ROMA POTTS CP Unavailable Allergies No Known Allergies Problems Problem Type Condition Code Onset Dates Condition Statu s Problem Pain in joint, shoulder region 719.41 Active Problem Need for prophylactic vaccination and inoculation, Inf luenza V04.81 Active Problem Acute upper respiratory infections of unspecified site 465.9 Active Problem Pure hypercholesterolemia E78.0 Ac tive Problem Generalized osteoarthrosis, unspecified site 715.00 Active Problem Major depressive disorder, r ecurrent episode, severe, with psychotic behavior F33.3 Active Problem Special screening examination, human papillomavirus [H PV] V73.81 Active Problem Screening for malignant neoplasm of the cervix V76.2 Active Problem Acquired hypothyroidism E03.9 Acti ve Problem Unspecified fasciitis 729.4 Active Problem 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 mode Problem Hearing loss of both ears H91.93 Ac tive Problem Edema 782.3 Active Problem Other specified counseling V65.49 A ctive Problem Routine gynecological examination V72.31 Active Problem Esophageal reflux 530.81 Active Problem Special screening for malignant neoplasms, colon V76.5 1 Active Problem Pain in soft tissues of limb 729.5 Active Problem Calcaneal spur 726.73 Active Problem Unspecified breast screening V76.10 Active Problem Unspecified disorders of bursae and tendons in shoulde r region 726.10 Active Problem Rash and other nonspecific skin eruption 782.1 Active Problem Screening for lipoid disorders V77.91 Active Medications Medication Code System Code Instructions Start Date End Date Status Dosage Abilify [facility] [address]-12 10 MG Orally Onc e a day at hs Pt needs an appt for further refills Mar 20, 2015 1 tablet Prozac [facility] [address]-70 10 MG Orally Once a day 3 capsule in the morning Levothyroxine Sodium [facility] [address]-61 125 MCG TAKE ONE TABLET BY MOUTH DAILY Trazodone HCl [facility] [address]-64 50 MG Orally Once at bedtime for sle ep 1 tablet Lovastatin [facility] [address]-63 20 MG TAKE ON E TABLET BY MOUTH DAILY Omeprazole [facility] [address]-67 20 MG TAKE ON E CAPSULE BY MOUTH TWICE DAILY Bentyl [facility] [address]-42 10 MG Orally Fou r times a day before meals and at bedtime for urgency with bowel movements 1 capsule Results No Known Results Summary Purpose [employer] Submission
--- OUTSIDE RECORDS SUMMARY | 2020-02-21 11:53 | XMS REPORT ---
Author Author Tarik POTTS Organization [facility] Address [address] [place] [address] Care Team Providers Care Behavior Therapist Name Role Phone ROMA POTTS Unavailable PROBLEMS Type Condition ICD9-CM Code [id number] Code Onset Dates Condition S tatus SNOMED Code Problem Hearing loss of both ears H91.93 Acti ve 66404726 Problem Pure hypercholesterolemia E78.0 Acti ve 286918662 Problem Acquired hypothyroidism E03.9 Active 288768116 Problem Hearing loss H91.90 Active 5019478 1 Problem Edema, unspecified type R60.9 Active 355237061 Problem Major depression in partial remission F32.4 Active 58953426 Problem Major depressive disorder, recurrent episode, mild F33.0 Active 234974132 Problem Calcaneal spur, unspecified laterality M77.30 Active 80444494 Problem Talipes varus, 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 29045017 ALLERGIES Substance Reaction Event Type Date Status Penicillins Unknown Non Drug Allergy Aug, Active SOCIAL HISTORY No smoking Hx information available PLAN OF CARE Activity Details Follow Up prn Reason: VITAL SIGNS Height 65 in 2016-08-28 Weight 251 lbs 2016-08-28 Temperature 98.1 degrees Fahrenheit 2016-08-28 Heart Rate 82 bpm 2016-08-28 Respiratory Rate 16 2016-08-28 BMI 41.76 kg/m2 2016-08-28 Blood pressure systolic 112 mmHg 2016-08-28 Blood pressure diastolic 78 mmHg 2016-08-28 MEDICATIONS Medication Instructions Dosage Frequency Start Date End Date Duration S tatus Trazodone HCl 50 MG Orally Once at bedtime for sleep 1 tablet 30 Active Promethazine-Codeine 6.25-10 MG/5ML Orally every 6 hrs 5 ml as need ed 6h 15 Oct, 2015 Active Lovastatin 20 MG TAKE ONE TABLET [...] 1 capsule 30 Acti ve Aripiprazole 10 mg Orally at bedtime 1 tablet Active Prozac 10 MG Orally Once a day 3 capsule in the morning 24h 30 Active RESULTS No Results PROCEDURES Procedure Date Ordered Related Diagnosis Body Site [facility] VISIT ESTABLISHED PATIENT Aug 28, 2016 Office Visit, Est Pt., Level 3 Aug 28, 2016 IMMUNIZATIONS No Known Immunizations
--- OUTSIDE RECORDS SUMMARY | 2020-02-21 11:53 | XMS REPORT ---
Author Author Tarik POTTS Organization [employer] Address Unknown Phone Unavailable Care Team Providers Care Crawler Dragline Operator Name Role Phone ROMA POTTS CP Unavailable Allergies No Known Allergies Problems Problem Type Condition Code Onset Dates Condition Statu s Problem Unspecified disorders of bursae and tendons in shoulde r region 726.10 Active Problem Pain in joint, shoulder region 719.41 Active Problem Screening for lipoid disorders V77.91 Active Problem Hearing loss of both ears H91.93 Ac tive Problem Screening for malignant neoplasm of the cervix V76.2 Active Problem Edema 782.3 Active Problem Major depressive disorder, r ecurrent episode, severe, with psychotic behavior F33.3 Active Problem Need for prophylactic vaccination and [...] Active Problem Calcaneal spur 726.73 Active Medications Medication Code System Code Instructions Start Date End Date Status Dosage Abilify [facility] [address]-30 10 MG Orally Onc e a day at hs Pt needs an appt for further refills Mar 20, 2015 1 tablet Results No Known Results Summary Purpose [employer] Submission
--- OUTSIDE RECORDS SUMMARY | 2020-02-21 11:53 | XMS REPORT ---
Author Author Tarik POTTS Organization [employer] Address Unknown Phone Unavailable Care Team Providers Care Frame Stripper Name Role Phone ROMA POTTS CP Unavailable Allergies, Adverse Reactions, Alerts Substance Reaction Event Type Penicillins Info Not Available Non Drug Allergy Problems Problem Type Condition Code Onset Dates Condition Statu s Assessment Hearing loss H91.90 Active Problem Pain in joint, shoulder region 719.41 Active Problem Screening for malignant neoplasm of the cervix V76.2 Active Problem Acute upper respiratory infections of unspecified site 465.9 Active Problem Special screening examination, human papillomavirus [H PV] V73.81 Active Problem Need for prophylactic vaccination and inoculation, Inf luenza V04.81 Active Problem Unspecified fasciitis 729.4 Active Problem 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 mode Problem Major depressive disorder, recurrent episode, mild F33 .0 Active Problem Acquired hypothyroidism E03.9 Acti ve Problem Special screening for malignant neoplasms, colon V76.5 1 Active Problem Esophageal reflux 530.81 Active Problem Major depression in partial remission F32.4 Active Problem Generalized osteoarthrosis, unspecified site 715.00 Active Problem Hearing loss of both ears H91.93 Ac tive Problem Edema 782.3 Active Problem Pure hypercholesterolemia E78.0 Ac tive Problem Major depressive disorder, r ecurrent episode, severe, with psychotic behavior F33.3 Active Problem Unspecified breast screening V76.10 Active Problem Rash and other nonspecific skin eruption 782.1 Active Problem Other specified counseling V65.49 A ctive Problem Routine gynecological examination V72.31 Active Problem Unspecified disorders of bursae and tendons in shoulde r region 726.10 Active Problem Screening for lipoid disorders V77.91 Active Problem Pain in soft tissues of limb 729.5 Active Problem Calcaneal spur 726.73 Active Medications Medication Code System Code Instructions Start Date End Date Status Dosage Levothyroxine Sodium [facility] [address]-49 125 MCG TAKE ONE TABLET BY MOUTH ONCE DAILY Lovastatin [facility] [address]-37 20 MG TAKE ON E TABLET BY MOUTH ONCE DAILY Bentyl [facility] [address]-96 10 MG Orally Fou r times a day before meals and at bedtime for urgency with bowel movements 1 capsule Trazodone HCl [facility] 77742362310 50 MG Orally Once at bedtime for sleep 1 tablet Fluoxetine HCl [facility] 27577758020 10 MG TAKE THREE CAPSULES BY MOUTH IN THE MORNING Abilify [facility] [address]-25 10 MG Orally Once a day at 1 tablet Omeprazole [facility] [address]-39 20 MG TAKE ON E CAPSULE BY MOUTH TWICE DAILY Aripiprazole [facility] [id number] 10 MG TAKE ON E TABLET BY MOUTH ONCE DAILY AT BEDTIME (NEED APPT FOR FURTHER REFILLS) Procedures Procedure Coding System Code Date Office Visit, Est Pt., Level 3 CPT-4 65791 A pri 2015 [facility] VISIT ESTABLISHED PATIENT CPT-4 G0467 A pril 2015 Vital Signs Date/Time: November 19, 2015 Temperature 97.8 F Weight 241 lbs Height 65 in BMI 40.10 Index Blood Pressure Diastolic 68 mmHg Blood Pressure Systolic 142 mmHg Cardiac Monitoring Heart Rate 64 bpm Results No Known Results Summary Purpose [employer]ClinicalWorks Submission
--- OUTSIDE RECORDS SUMMARY | 2020-02-21 11:53 | XMS REPORT ---
Author Author Tarik POTTS Organization [facility] Address [address] [place] [address] Care Team Providers Care Rotary Planer Set Up Operator Name Role Phone ROMA POTTS Unavailable PROBLEMS Type Condition ICD9-CM Code [id number] Code Onset Dates Condition S tatus SNOMED Code Problem Pure hypercholesterolemia E78.0 Acti ve 078639538 Problem Major depression in partial remission F32.4 Active 37832379 Problem Major depressive disorder, recurrent episode, mild F33.0 Active 373866649 Problem Hearing loss of both ears H91.93 Acti ve 55665338 Problem Acquired hypothyroidism E03.9 Active 323865235 Problem Mild acid reflux K21.9 Active 235 885559 Problem Medicare welcome exam Z00.00 Active 904664658 Problem Calcaneal spur, unspecified laterality M77.30 Active 08314207 Problem Talipes varus, 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 [id number] [address] [place] [address] Mar, [place] [address] [facility] [id number] [address] [place] [address] December, Major depressive disorder in full remission, unspecified whether recurrent F32.5 [place] [id number] [address] [place] [address] Nov, Acquired hypothyroidism E03. 9 [place] [address] [facility] [id number] [address] [place] [address] Nov, Pure hypercholesterolemia E7 8.0 ; Peripheral edema R60.9 and Acquired hypothyroidism E03.9 [place] [address] [facility] [id number] [address] [place] [address] Oct, Mild acid reflux K21.9 [facility] [address] [facility] [id number] [address] [place] [address] Sep, Major depressive disorder, s glenny episode, in partial remission F32.4 and Long-term use of high-risk medication Z79.899 [place] [address] [facility] [id number] [address] [place] [address] Aug, Encounter for immunization Z 23 [place] [address] [facility] [id number] [address] [place] [address] Jul, [place] [address] [facility] [id number] [address] [place] [address] Jun, Medicare annual wellness vis it, initial Z00.00 ; BMI 40.0-44.9, adult Z68.41 and Encounter for immunization Z23 [place] [address] [facility] [id number] [address] [place] [address] May, [place] [address] [facility] [id number] [address] [place] [address] May, Encounter for immunization Z 23 [place] [address] [facility] [id number] [address] [place] [address] May, Major depression in partial remission F32.4 [place] [address] [facility] [id number] [address] [place] [address] Apr, Hearing loss H91.90 ; Encoun ter for immunization Z23 and Encounter for screening mammogram for breast cancer Z12.31 [place] [address] [facility] [id number] [address] [place] [address] Mar, Acquired hypothyroidism E03. 9 [place] [address] [facility] [id number] [address] [place] [address] Jan, Acquired hypothyroidism E03. 9 [place] [address] [id number] [address] [place] [address] Jan, Acute midline low back pain without sciatica M54.5 [facility] [address] [id number] [address] [place] [address] Jan, Peripheral edema R60.9 [facility] [address] [id number] [address] [place] [address] Jan, Major depression in partial remission F32.4 [facility] [address] [id number] [address] [place] [address] Jan, Localized edema R60.0 [facility] [address] [id number] [address] [place] [address] Nov, Pure hypercholesterolemia E7 8.0 [facility] [address] [facility] [id number] [address] [place] [address] Nov, Pure hypercholesterolemia E7 8.0 [facility] [address] [facility] [id number] [address] [place] [address] Nov, Peripheral edema R60.9 [facility] [address] [id number] [address] [place] [address] Oct, Major depression in partial remission F32.4 [facility] [address] [id number] [address] [place] [address] Aug, [facility] [address] [facility] [id number] [address] [place] [address] Aug, Elevated blood pressure read ing R03.0 [facility] [address] [id number] [address] [place] [address] Aug, [facility] [address] [facility] [id number] [address] [place] [address] Jun, Major depression in partial remission F32.4 [facility] [address] [facility] [id number] [address] [place] [address] Apr, Major depressive disorder, r ecurrent episode, mild F33.0 [facility] [address] [facility] [id number] [address] [place] [address] Mar, Encounter for well woman exjoyce m with routine gynecological exam Z01.419 and Breast cancer screening Z12.39 [facility] [address] [facility] [id number] [address] [place] [address] 28 Feb, 2016 Hypothyroidism, unspecified type E03.9 [facility] [address] [facility] [id number] [address] [place] [address] 12 Feb, 2016 Major depressive disorder, r ecurrent episode, mild F33.0 [facility] [address] [facility] [id number] [address] [place] [address] 30 Jan, 2016 Abscess L02.91 [place] [address] [facility] [id number] [address] [place] [address] Jan, Furuncle L02.92 [place] [address] [facility] [id number] [address] [place] [address] 16 Jan, 2016 Major depression in partial remission F32.4 [facility] [address] [facility] [id number] [address] [place] [address] 13 Jan, 2016 Major depressive disorder, r ecurrent episode, mild F33.0 [facility] [address] [facility] [id number] [address] [place] [address] December, Acute bacterial conjunctivit is of left eye H10.022 [facility] [address] [facility] [id number] [address] [place] [address] December, Major depressive disorder, r ecurrent episode, mild F33.0 [facility] [address] [facility] [id number] [address] [place] [address] Nov, [place] [address] [facility] [id number] [address] [place] [address] Nov, Major depressive disorder, r ecurrent episode, mild F33.0 [facility] [address] [facility] [id number] [address] [place] [address] 18 Nov, [address] [facility] [address] [facility] [id number] [address] [place] [address] 17 Oct, 2015 Major depression in partial remission F32.4 [facility] [address] [facility] [id number] [address] [place] [address] 15 Oct, 2015 Pneumonia J18.9 [facility] [address] [facility] [id number] [address] [place] [address] 10 Oct, 2015 Influenza A J10.1 ; Fever, u nspecified R50.9 ; Conjunctivitis H10.9 and Cough R05 [place] [address] [facility] [id number] [address] [place] [address] Oct, Major depressive disorder, r ecurrent episode, severe, with psychotic behavior F33.3 [place] [address] [place] [id number] [address] [place] [address] Aug, [place] [address] [place] [id number] [address] [place] [address] Aug, Acquired hypothyroidism E03. 9 and Pure hypercholesterolemia E78.0 [place] [address] [place] [id number] [address] [place] [address] Aug, Major depressive disorder, r ecurrent episode, severe, with psychotic behavior F33.3 [place] [id number] [address] [place] [address] Jul, [place] [address] [place] [id number] [address] [place] [address] Jul, Major depressive disorder, r ecurrent episode, severe, with psychotic behavior F33.3 [place] [address] [place] [id number] [address] [place] [address] Jun, Major depressive disorder, r ecurrent episode, severe, with psychotic behavior F33.3 [place] [id number] [address] [place] [address] May, [place] [address] [place] [id number] [address] [place] [address] May, Major depressive disorder, r ecurrent episode, severe, with psychotic behavior F33.3 [place] [address] [facility] [id number] [address] [place] [address] May, Major depressive disorder, r ecurrent episode, severe, with psychotic behavior F33.3 [place] [address] [facility] [id number] [address] [place] [address] Apr, [place] [address] [place] [id number] [address] [place] [address] Apr, Depressive disorder, not els ewhere classified 311 and Unspecified psychosis 298.9 [place] [address] [place] [id number] [address] [place] [address] Apr, Depression 311 and Hard of h earing 389.9 [place] [address] [place] [id number] [address] [place] [address] Apr, Schizoaffective disorder 295 .70 [place] [address] [place] [id number] [address] [place] [address] Apr, Major depressive disorder, r ecurrent episode, severe, specified as with psychotic behavior 296.34 [place] [address] [place] [id number] [address] [place] [address] Apr, Psychosis 298.9 and Depressi on 311 [place] [address] [place] [id number] [address] [place] [address] Apr, Depressive disorder, not els ewhere classified 311 and Unspecified psychosis 298.9 [place] [address] [place] [id number] [address] [place] [address] Mar, Screening for cervical cance r V76.2 ; Well woman exam with routine gynecological exam V72.31 ; Colon cancer screening V76.51 ; Breast cancer screening V76.10 ; Irritable bowel syndrome 564.1 and Psychosis 298.9 [place] [address] [place] [id number] [address] [place] [address] Mar, Psychosis 298.9 [facility] [address] [id number] [address] [place] [address] Mar, Unspecified psychosis 298.9 [facility] [address] [id number] [address] [place] [address] 14 Nov, 2014 [facility] [address] [id number] [address] [place] [address] Nov, [facility] [address] [id number] [address] [place] [address] Oct, [facility] [address] [id number] [address] [place] [address] Oct, [facility] [address] [id number] [address] [place] [address] Jul, [facility] [address] [id number] [address] [place] [address] Jul, [facility] [address] [id number] [address] [place] [address] May, [facility] [address] [id number] [address] [place] [address] Apr, [facility] [address] [id number] [address] [place] [address] Apr, [facility] [address] [id number] [address] [place] [address] 05 Apr, 2014 [facility] [address] [id number] [address] [place] [address] Apr, [facility] [address] [id number] [address] [place] [address] Apr, [facility] [address] [id number] [address] [place] [address] Mar, [facility] [address] [id number] [address] [place] [address] Mar, [facility] [address] [id number] [facility] [place] [address] Mar, [facility] [address] [id number] [facility] [place] [address] Mar, [facility] [address] [id number] [facility] [place] [address] Mar, [facility] [address] [id number] [facility] [place] [address] Mar, [facility] [address] [id number] [facility] [place] [address] Mar, [facility] [address] [id number] [address] [place] [address], [place] [address] Mar, [facility] [address] [id number] [address] [place] [address], [place] [address] Mar, [facility] [address] [id number] [address] [place] [address], [place] [address] Mar, [facility] [address] [id number] [address] [place] [address], [place] [address] Jan, [facility] [address] [id number] [address] [place] [address], [place] [address] Jan, [facility] [address] [id number] [address] [place] [address], [place] [address] December, [facility] [address] [id number] [address] [place] [address], [place] [address] December, [facility] [address] [id number] [address] [place] [address], [place] [address] Nov, [facility] [address] [id number] [address] [place] [address], [place] [address] Nov, [facility] [address] [id number] [address] [place] [address], [place] [address] Sep, [facility] [address] [id number] [address] [place] [address], [place] [address] Sep, [facility] [address] [id number] [address] [place] [address], [place] [address] Sep, [facility] [address] [id number] [address] [place] [address], [place] [address] Sep, [facility] [address] [id number] [address] [place] [address], [place] [address] Jun, [facility] [address] [id number] [address] [place] [address], [place] [address] Jun, [facility] [address] [id number] [address] [place] [address], [place] [address] Jun, [facility] [address] [id number] [address] [place] [address], [place] [address] Jun, [facility] [address] [id number] [address] [place] [address], [place] [address] May, [facility] [address] [id number] [address] [place] [address], [place] [address] May, [facility] [address] [id number] [address] [place] [address], [place] [address] Apr, [facility] [address] [id number] [address] [place] [address], [place] [address] Mar, [facility] [address] [id number] [address] [place] [address], [place] [address] Mar, [facility] [address] [id number] [address] [place] [address], [place] [address] Mar, [facility] [address] [id number] [address] [place] [address], [place] [address] Mar, [facility] [address] [id number] [address] [place] [address], [place] [address] Mar, [facility] [address] [id number] [address] [place] [address], [place] [address] Jan, [facility] [address] [id number] [address] [place] [address], [place] [address] 24 Jan, 2013 [facility] [address] [id number] [address] [place] [address], [place] [address] Jan, [facility] [address] [id number] [address] [place] [address], [place] [address] December, [facility] [address] [id number] [address] [place] [address], [place] [address] Oct, [facility] [address] [id number] [address] [place] [address], [place] [address] Oct, [facility] [address] [id number] [address] [place] [address], [place] [address] Oct, [facility] [address] [id number] [address] [place] [address], [place] [address] Oct, [facility] [address] [id number] [address] [place] [address], [place] [address] Aug, [facility] [address] [id number] [address] [place] [address], [place] [address] 16 Jun, 2012 [facility] [address] [id number] [address] [place] [address], [place] [address] 16 Jun, 2012 [facility] [address] [id number] [address] [place] [address], [place] [address] 14 Jun, 2012 [facility] [address] [id number] [address] [place] [address], [place] [address] 14 Jun, 2012 [facility] [address] [id number] [address] [place] [address], [place] [address] 05 May, 2012 [facility] [address] [id number] [address] [place] [address], [place] [address] 10 Apr, 2012 [facility] [address] [id number] [address] [place] [address], [place] [address] Mar, [facility] [address] [id number] [address] [place] [address], [place] [address] Jan, [facility] [address] [id number] [address] [place] [address], [place] [address] Jan, [facility] [address] [id number] [address] [place] [address], [place] [address] December, [facility] [address] [id number] [address] [place] [address], [place] [address] December, [facility] [address] [id number] [address] [place] [address], [place] [address] December, [facility] [address] [id number] [address] [place] [address], [place] [address] December, [facility] [address] [id number] [address] [place] [address], [place] [address] Nov, [facility] [address] [id number] [address] [place] [address], [place] [address] Oct, [facility] [address] [id number] [address] [place] [address], [place] [address] Sep, [facility] [address] [id number] [address] [place] [address], [place] [address] Sep, [facility] [address] [id number] [address] [place] [address], [place] [address] Sep, [facility] [address] [id number] [address] [place] [address], [place] [address] Sep, [facility] [address] [id number] [address] [place] [address], [place] [address] Aug, [facility] [address] [id number] [address] [place] [address], [place] [address] Jun, [facility] [address] [id number] [address] [place] [address], [place] [address] May, [facility] [address] [id number] [address] [place] [address], [place] [address] Mar, [facility] [address] [id number] [address] [place] [address] Jun, [facility] [address] [facility] [id number] [address] [place] [address] May, [facility] [address] [facility] [id number] [address] [place] [id number] May, IMMUNIZATIONS Vaccine Route Administration Date Status TDAP (BOOSTRIX) IM Intramuscular Jun 29, 2017 Administered SOCIAL HISTORY Never Assessed REASON FOR VISIT [facility] PLAN OF CARE Activity Details Follow Up annually for preventive care , sooner for chronic health maintenance, prn Reason: VITAL SIGNS Height 65 in 2017-06-29 Weight 254.8 lbs 2017-06-29 Temperature 98.1 degrees Fahrenheit 2017-06-29 Heart Rate 68 bpm 2017-06-29 Respiratory Rate 16 2017-06-29 Oximetry on room air:100 % 2017-06-29 BMI 42.40 kg/m2 2017-06-29 Blood pressure systolic 118 mmHg 2017-06-29 Blood pressure diastolic 72 mmHg 2017-06-29 MEDICATIONS Medication Instructions Dosage Frequency Start Date End Date Duration S tatus Bentyl 10 MG Orally Four times a day befo re meals and at bedtime for urgency with bowel movements 1 capsule 30 Acti ve Lovastatin 20 MG TAKE ONE TABLET BY MOUTH ONCE DAILY 90 Active Lasix 40 mg Orally twice a day in AM and noon 1 tablet Jan, 2 017 05 days Active Fluoxetine HCl 10 MG TAKE THREE CAPSULES BY MOUTH IN THE MORNING 30 Active Promethazine-Codeine 6.25-10 MG/5ML Orally every 6 hrs 5 ml as need ed 6h 15 Oct, 2015 Active Aripiprazole 10 MG TAKE ONE TABLET BY MOUTH AT BEDTIME Active Trazodone HCl 50 mg Orally Once at bedtime for sleep 1 tablet Active Omeprazole 20 MG TAKE ONE CAPSULE BY MOUTH TWICE DAILY 30 Active Levothyroxine Sodium 125 MCG TAKE ONE TABLET BY MOUTH ONCE DAILY 90 Active RESULTS Name Result Date Reference Range COLOGUARD (OUTSIDE ORDER) 2017-08-04 PROCEDURES Procedure Date Ordered Result Body Site MEASURE BLOOD OXYGEN LEVEL Jun 29, 2017 INIT PREV PE LTD DUR 1ST 12 MOS MCR Jun 29, 2017 PT TOBACCO SCREEN RCVD TLK Jun 29, 2017 FALL RISK ASSESSMENT DOCD Jun 29, 2017 SINGLE IMMUNIZATION ADMIN Jun 29, 2017 TDAP (BOOSTRIX) Jun 29, 2017 INSTRUCTIONS MEDICATIONS ADMINISTERED No Known Medications MEDICAL (GENERAL) HISTORY Type Description Date Medical History depression Medical History hypothryroidism Medical History hyperlipidemia Medical History trauma: Stroke - with L side faci al drooping Surgical History hysterectomy Surgical History cholecystectomy Surgical History gall bladder removal Hospitalization History surgeries Hospitalization History stroke
--- OUTSIDE RECORDS SUMMARY | 2020-02-21 11:53 | XMS REPORT ---
Author Author Tarik WAYNE [facility] eClinicalWorks Address Unknown Phone Unavailable Care Team Providers Care Front End Developer Designer Name Role Phone MICHAELA WAYNE Unavailable Allergies [...] V76.2 Active Problem Edema 782.3 Active Assessment Major [...] patient &/family, 45 minutes, established patient CPT-4 [id number] Aug 10, 2015 Results No Known Results Summary Purpose eClinicalWorks Submission
--- OUTSIDE RECORDS SUMMARY | 2020-02-21 11:53 | XMS REPORT ---
Author Author Tarik POTTS Organization [employer] Address Unknown Phone Unavailable Care Team Providers Care Quarantine Inspector Name Role Phone ROMA POTTS CP Unavailable Allergies, Adverse Reactions, Alerts Substance Reaction Event Type Penicillins Info Not Available Non Drug Allergy Problems Problem Type Condition ICD-9 Code Onset Dates Condition Statu s Assessment Psychosis 298.9 Active Problem Rash and other nonspecific skin eruption 782.1 Active Assessment Irritable bowel syndrome 564.1 Act mode Problem Pain in soft tissues of limb 729.5 Active Assessment Breast cancer screening V76.10 Acti ve Problem Calcaneal spur 726.73 Active Problem Screening for lipoid disorders V77.91 Active Problem Unspecified disorders of bursae and tendons in shoulde r region 726.10 Active Problem Edema 782.3 Active Problem Unspecified fasciitis 729.4 Active Assessment Screening for cervical cancer V76.2 Active Assessment Well woman exam with routine gynecological exam V72.31 Active Problem Unspecified psychosis 298.9 Active Assessment Colon cancer screening V76.51 Activ e Problem Acute upper respiratory infections of unspecified [...] Problem Other specified counseling V65.49 A ctive Medications Medication Code System Code Instructions Start Date End Date Status Dosage Bentyl [facility] [address]-65 10 MG Orally Fou r times a day before meals and at bedtime for urgency with bowel movements Mar 28, 2015 May 27, 2015 1 capsule Prozac [facility] [address]-01 10 MG Orally Once a day 1 capsule in the morning Abilify [facility] [address]-16 10 MG Orally Once a day at hs Mar 20, 2015 1 tablet Levothyroxine Sodium [facility] [address]-61 25 MCG Orally Once a day 1 tablet Procedures Procedure Coding System Code Date SPECIMEN HANDLING CPT-4 38056 Mar 28, 2015 Office Visit, Est Pt., Level 4 CPT-4 66643 A 2014 TEST FOR BLOOD, FECES CPT-4 35976 Mar 28 15 Vital Signs Date/Time: Mar 28, 2015 Temperature 97.2 F Weight 246.1 lbs Height 65 in BMI 40.95 Index Blood Pressure Diastolic 84 mmHg Blood Pressure Systolic 156 mmHg Cardiac Monitoring Heart Rate 72 bpm Results No Known Results Summary Purpose [employer] Submission
--- OUTSIDE RECORDS SUMMARY | 2020-02-21 11:53 | XMS REPORT ---
Author Author Tarik DOWNING Organization [employer] Address Unknown Phone Unavailable Care Team Providers Care Crepe Machine Operator Name Role Phone ALONZO DOWNING CP Unavailable [...] in shoulde r region 726.10 Active Medications Medication Code System Code Instructions Start Date End Date Status Dosage Lovastatin [facility] 19200342746 20 MG TAKE ONE TABLET BY MOUTH DAILY Omeprazole [facility] 27063723427 20 MG TAKE ONE CAPSULE BY MOUTH TWICE DAILY Prozac [facility] [address]-32 20 MG Orally Once a day 1 capsule in the morning with 1 10mg tab Bentyl [facility] 08981022402 10 MG Orally Fou r times a day before meals and at bedtime for urgency with bowel movements 1 capsule Abilify [facility] [address]-56 10 MG Orally Once a day at hs Mar 20, 2015 1 tablet Trazodone HCl [facility] [address]-48 50 MG Orally Once at bedti ar for sleep Apr 10, 2015 1 tablet Prozac [facility] [address]-00 10 MG Orally Once a day May 01, 2015 3 capsule in the morning (30mg total) Levothyroxine Sodium [facility] 16156528340 125 MCG TAKE ONE TABLET BY MOUTH DAILY Procedures Procedure Coding System Code Date MH Office Visit, Est Pt., Level 3 CPT-4 85847 May 22, 2015 Vital Signs Date/Time: May 22, 2015 Cardiac Monitoring Heart Rate 68 bpm Weight 248 lbs Height 65 in BMI 41.26 Index Blood Pressure Diastolic 70 mmHg Blood Pressure Systolic 130 mmHg Results No Known Results Summary Purpose [employer] Submission
--- OUTSIDE RECORDS SUMMARY | 2020-02-21 11:53 | XMS REPORT ---
Author Author Tarik POTTS Organization [employer] Address Unknown Phone Unavailable Care Team Providers Care Director Of Communications Name Role Phone ROMA POTTS CP Unavailable [...] V76.2 Active Problem Edema 782.3 Active Assessment Depression 311 Active Assessment Hard of hearing 389.9 Active Problem Depressive disorder, not elsewhere classified [...] Start Date End Date Status Dosage Lovastatin [facility] 57444587937 20 MG TAKE ONE TABLET BY MOUTH DAILY Prozac [facility] [address]-89 20 MG Orally Once a day 1 capsule in the morning with 1 10mg tab Bentyl [facility] [address]-51 10 MG Orally Fou r times a day before meals and at bedtime for urgency with bowel movements Mar 28, 2015 May 27, 2015 1 capsule Trazodone HCl [facility] [address]-28 50 MG Orally Once at bedti ar for sleep Apr 10, 2015 1 tablet Abilify [facility] [address]-06 10 MG Orally Once a day at hs Mar 20, 2015 1 tablet Levothyroxine Sodium [facility] 54183059629 125 MCG TAKE ONE TABLET BY MOUTH DAILY Procedures Procedure Coding System Code Date Office Visit, Est Pt., Level 3 CPT-4 96250 S ept 2014 Vital Signs Date/Time: May 01, 2015 Temperature 97.6 F Weight 248.5 lbs Height 65 in BMI 41.35 Index Blood Pressure Diastolic 70 mmHg Blood Pressure Systolic 128 mmHg Cardiac Monitoring Heart Rate 68 bpm Results No Known Results Summary Purpose [employer] Submission
--- OUTSIDE RECORDS SUMMARY | 2020-02-21 11:53 | XMS REPORT ---
Author Author Tarik POTTS Organization [employer] Address Unknown Phone Unavailable Care Team Providers Care Instructional Manager Name Role Phone ROMA POTTS CP Unavailable Allergies, Adverse Reactions, Alerts Substance Reaction Event Type Penicillins Info Not Available Non Drug Allergy Problems Problem Type Condition Code Onset Dates Condition Statu s Assessment Hypothyroidism, unspecified type E03.9 Active Problem Pain in joint, shoulder region [...] Instructions Start Date End Date Status Dosage Trazodone HCl [facility] 97706433762 50 MG Orally Once at bedtime for sleep 1 tablet Omeprazole [facility] [address]-33 20 MG TAKE ON E CAPSULE BY MOUTH TWICE DAILY Bentyl [facility] 30495936902 10 MG Orally Fou r times a day before meals and at bedtime for urgency with bowel movements 1 capsule Aripiprazole [facility] [address]-09 10 mg Orally at bedtime 1 tablet Levothyroxine Sodium [facility] [address]-55 125 MCG TAKE ONE TABLET BY MOUTH ONCE DAILY Lovastatin [facility] [address]-17 20 MG TAKE ON E TABLET BY MOUTH ONCE DAILY Fluoxetine HCl [facility] [address]-73 10 mg Orally Once in the morning 3 capsules Procedures Procedure Coding System Code Date [facility] VISIT ESTABLISHED PATIENT CPT-4 G0467 J 2015 Office Visit, Est Pt., Level 3 CPT-4 19942 J 2015 [facility] CPT-4 NOBLL January VENIPUNCT, ROUTINE* CPT-4 56189 February 27 6 Vital Signs Date/Time: February 28, 2016 Cardiac Monitoring Heart Rate 76 bpm Weight 250.6 lbs Height 65 in BMI 41.70 Index Blood Pressure Diastolic 66 mmHg Blood Pressure Systolic 130 mmHg Results No Known Results Summary Purpose [employer] Submission
--- OUTSIDE RECORDS SUMMARY | 2020-02-21 11:53 | XMS REPORT ---
Author Author Tarik POTTS Organization [employer] Address Unknown Phone Unavailable Care Team Providers Care Sanitary Aide Name Role Phone ROMA POTTS CP Unavailable Allergies, Adverse Reactions, Alerts Substance Reaction Event Type Penicillins Info Not Available Non Drug Allergy Problems Problem Type Condition Code Onset Dates Condition Statu s Problem Unspecified disorders of bursae and tendons in shoulde r region 726.10 Active Assessment Pure hypercholesterolemia E78.0 Ac tive Problem Screening for lipoid disorders V77.91 Active Assessment Acquired hypothyroidism E03.9 Acti ve Problem Pain in joint, shoulder region 719.41 Active Problem Need for prophylactic vaccination and inoculation, Inf luenza V04.81 Active Problem Acute upper respiratory infections of unspecified site 465.9 Active Problem Pure hypercholesterolemia E78.0 Ac tive Problem Major depressive disorder, r ecurrent episode, severe, with psychotic behavior F33.3 Active Problem Generalized osteoarthrosis, unspecified site 715.00 Active Problem Special screening examination, human papillomavirus [H PV] V73.81 Active Problem Acquired hypothyroidism E03.9 Acti ve Problem Screening for malignant neoplasm of the cervix V76.2 Active Problem Unspecified fasciitis 729.4 Active Problem [...] Instructions Start Date End Date Status Dosage Omeprazole [facility] 38313765880 20 MG TAKE ONE CAPSULE BY MOUTH TWICE DAILY Fluoxetine HCl [facility] [address]-07 20 MG TIGIST E ONE CAPSULE BY MOUTH IN THE MORNING ALONG WITH FLUOXETINE 10 MG Bentyl [facility] 30477919347 10 MG Orally Fou r times a day before meals and at bedtime for urgency with bowel movements 1 capsule Levothyroxine Sodium [facility] 15399147716 125 MCG TAKE ONE TABLET BY MOUTH DAILY Shirley [facility] [address]-80 10 MG Orally Onc e a day at hs Pt needs an appt for further refills Mar 20, 2015 1 tablet Prozac [facility] 06351531896 10 MG Orally Once a day 3 capsule in the morning Trazodone HCl [facility] 75375618532 50 MG Orally Once at bedtime for sleep 1 tablet Lovastatin [facility] 61854465756 20 MG TAKE ONE TABLET BY MOUTH DAILY Procedures Procedure Coding System Code Date LIPID PANEL CPT-4 02921 Aug 21, 2015 COMPREHEN METABOLIC PANEL CPT-4 78516 Aug ASSAY THYROID STIM HORMONE CPT-4 25824 Aug 032015 VENIPUNCT, ROUTINE* CPT-4 69505 Aug 21, 2015 Office Visit, Est Pt., Level 3 CPT-4 44946 J 2015 Vital Signs Date/Time: Aug 21, 2015 Temperature 98.0 F Weight 250 lbs Height 65 in BMI 41.60 Index Blood Pressure Diastolic 72 mmHg Blood Pressure Systolic 128 mmHg Cardiac Monitoring Heart Rate 70 bpm Results Name Result Date Reference Range Unit Abnormali ty Flag LIPID PANEL ----HDL Cholesterol 35 13863943 >39 mg/dL L ----VLDL Cholesterol Shorty 13 29448894 5-40 mg/dL ----LDL Cholesterol Calc 97 27355085 0-99 mg/dL ----Cholesterol, Total 145 24246685 100-199 mg/dL ----Triglycerides 67 89163762 0-149 mg/dL CMP ----Globulin, Total 3.5 56527273 1.5-4.5 g/dL ----eGFR If Africn Am 88 84309835 >59 mL/min/1.73 ----eGFR If NonAfricn Am 76 42022790 >59 mL/min/1.73 ----Albumin, Serum 3.7 60943811 3.6-4.8 g/dL ----Sodium, Serum 142 47577488 134-144 mmol/L ----Protein, Total, Serum 7.2 69495517 6.0-8.5 g/dL ----BUN/Creatinine Ratio 11 20150821 11-26 ----Calcium, Serum 9.0 20150821 8.7-10.3 mg/dL ----AST (SGOT) 19 20150821 0-40 IU/L ----Glucose, Serum 94 20150821 65-99 mg/dL ----Alkaline Phosphatase, S 108 20150821 39-117 IU/L ----Bilirubin, Total 0.4 20150821 0.0-1.2 mg/dL ----Creatinine, Serum 0.81 20150821 0.57-1.00 mg/dL ----A/G Ratio 1.1 20150821 1.1-2.5 ----BUN 9 20150821 8-27 mg/dL ----Carbon Dioxide, Total 26 20150821 18-29 mmol/L ----ALT (SGPT) 11 20150821 0-32 IU/L ----Potassium, Serum 4.2 20150821 3.5-5.2 mmol/L ----Chloride, Serum 101 20150821 97-108 mmol/L ROUTINE VENIPUNCTURE TSH ----TSH 3.690 20150821 0.450-4.500 uIU/mL Summary Purpose [employer]Works Submission
--- OUTSIDE RECORDS SUMMARY | 2020-02-21 11:53 | XMS REPORT ---
Author Author Tarik POTTS Organization [employer] Address Unknown Phone Unavailable Care Team Providers Care Displayer Merchandise Name Role Phone ROMA POTTS CP Unavailable [...] spur 726.73 Active Medications No Known Medications Results No Known Results Summary Purpose [employer] Submission
--- OUTSIDE RECORDS SUMMARY | 2020-02-21 11:53 | XMS REPORT ---
Author Author Tarik POTTS Organization [facility] Address [address] [place] [address] Care Team Providers Care Burial Vault Deliverer And Installer Name Role Phone ROMA POTTS Unavailable PROBLEMS Type Condition ICD9-CM Code WTC56-OX Code Onset Dates Condition S tatus SNOMED Code Problem Hearing loss of both ears H91.93 Acti ve 83653028 Problem Pure hypercholesterolemia E78.0 Acti ve 571961431 Problem Acquired hypothyroidism E03.9 Active 593301081 Problem Hearing loss H91.90 Active 2882201 1 Problem Edema, unspecified type R60.9 Active 363252227 Problem Major depression in partial remission F32.4 Active 40444994 Problem Major depressive disorder, recurrent episode, mild F33.0 Active 036343723 Problem Calcaneal spur, unspecified laterality M77.30 Active 67912251 Problem Talipes varus, 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
--- OUTSIDE RECORDS SUMMARY | 2020-02-21 11:53 | XMS REPORT ---
Author Author Tarik WAYNE [facility] [employer] Address Unknown Phone Unavailable Care Team Providers Care Sound Mixer Name Role Phone MICHAELA WAYNE Unavailable Allergies No Known Allergies Problems Problem Type Condition Code Onset Dates Condition Statu s Assessment Major depressive disorder, recurrent episode, mild F33 .0 Active Problem Pain in joint, shoulder region [...] patient &/family, 45 minutes, established patient CPT-4 48810 November 20, 2015 [facility] VISIT MENTAL HEALTH ESTAB PT CPT-4 G0470 November 20, 2015 Results No Known Results Summary Purpose [employer]ClinicalWorks Submission
--- OUTSIDE RECORDS SUMMARY | 2020-02-21 11:54 | XMS REPORT ---
Author Author Tarik DOWNING Organization [facility] Address [address] [place] [address] Care Team Providers Care Signal Intelligence/Electronic Warfare Name Role Phone ALONZO DOWNING Unavailable PROBLEMS Type Condition ICD9-CM Code NHA34-PL Code Onset Dates Condition S tatus SNOMED Code Problem Hearing loss of both ears H91.93 Acti ve 12967087 Problem Pure hypercholesterolemia E78.0 Acti ve 292987098 Problem Acquired hypothyroidism E03.9 Active 551433784 Problem Hearing loss H91.90 Active 1462395 1 Problem Edema, unspecified type R60.9 Active 045046368 Problem Major depression in partial remission F32.4 Active 99343580 Problem Major depressive disorder, recurrent episode, mild F33.0 Active 851155034 Problem Calcaneal spur, unspecified laterality M77.30 Active 64849002 Problem Talipes varus, 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 03633978 ALLERGIES Substance Reaction Event Type Date Status Penicillins Unknown Non Drug Allergy Oct, Active SOCIAL HISTORY Never Assessed PLAN OF CARE Activity Details Follow Up 3 Months Reason: VITAL SIGNS Height 65 in 2016-10-02 Weight 254.5 lbs 2016-10-02 Heart Rate 64 bpm 2016-10-02 Respiratory Rate 18 2016-10-02 BMI 42.35 kg/m2 2016-10-02 Blood pressure systolic 122 mmHg 2016-10-02 Blood pressure diastolic 76 mmHg 2016-10-02 MEDICATIONS Medication Instructions Dosage Frequency Start Date End Date Duration S tatus Levothyroxine Sodium 125 MCG TAKE ONE TABLET BY MOUTH ONCE DAILY 90 Active Bentyl 10 MG Orally Four times a day befo re meals and at bedtime for urgency with bowel movements 1 capsule 30 Acti ve Promethazine-Codeine 6.25-10 MG/5ML Orally every 6 hrs 5 ml as need ed 6h Oct, Active Lovastatin 20 MG TAKE ONE TABLET BY MOUTH ONCE DAILY 90 Active Aripiprazole 5 mg Orally per day in the morning 1 tablet Active Trazodone HCl 50 mg Orally Once at bedtime for sleep 1 tablet Active Fluoxetine HCl 10 mg Orally Once in the morning 3 capsules Active Omeprazole 20 MG TAKE ONE CAPSULE BY MOUTH TWICE DAILY 30 Active RESULTS No Results PROCEDURES Procedure Date Ordered Result Body Site [facility] VISIT ESTABLISHED PATIENT October 02, 2016 IMMUNIZATIONS No Known Immunizations MEDICAL (GENERAL) HISTORY Type Description Date Medical History depression Medical History hypothryroidism Medical History hyperlipidemia Medical History trauma: Stroke - with L side faci al drooping Surgical History hysterectomy Surgical History cholecystectomy Surgical History gall bladder removal Hospitalization History surgeries Hospitalization History stroke
--- OUTSIDE RECORDS SUMMARY | 2020-02-21 11:54 | XMS REPORT ---
Author Author Tarik DOWNING Organization [employer] Address Unknown Phone Unavailable Care Team Providers Care Colorer Hides And Skins Name Role Phone ALONZO DOWNING CP Unavailable [...] severe, specified as with psychotic behavior 296.34 Active Problem Unspecified fasciitis 729.4 Active Problem [...] soft tissues of limb 729.5 Active Medications Medication Code System Code Instructions Start Date End Date Status Dosage Prozac [facility] [address]-11 20 MG Orally Once a day 1 capsule in the morning with 1 10mg tab Trazodone HCl [facility] [address]-66 50 MG Orally Once at bedti nc for sleep Apr 10, 2015 1 tablet Levothyroxine Sodium [facility] [address]-59 25 MCG Orally Once a day 1 tablet Bentyl [facility] [address]-19 10 MG Orally Fou r times a day before meals and at bedtime for urgency with bowel movements Mar 28, 2015 May 27, 2015 1 capsule Abilify [facility] [address]-76 10 MG Orally Once a day at hs Mar 20, 2015 1 tablet Procedures Procedure Coding System Code Date Office Visit, Est Pt., Level 5 CPT-4 55748 S ept 2014 Vital Signs Date/Time: Apr 10, 2015 Temperature 98.6 F Weight 247.4 lbs Height 65 in BMI 41.17 Index Blood Pressure Diastolic 68 mmHg Blood Pressure Systolic 140 mmHg Cardiac Monitoring Heart Rate 56 bpm Results No Known Results Summary Purpose eClinicalWorks Submission
--- OUTSIDE RECORDS SUMMARY | 2020-02-21 11:54 | XMS REPORT ---
Author Author Tarik Logan Doctor Organization [facility] Address Unknown Phone Unavailable Care Team Providers Care Residential Team Leader Name Role Phone Migration, Doctor Unavailable Unavailable PROBLEMS Type Condition ICD9-CM Code QKD36-RO Code Onset Dates Condition S tatus SNOMED Code Problem Osteopenia after menopause M81.0 Act mode 958492829 Problem Acquired hypothyroidism E03.9 Active 797855446 Problem Hearing loss of both ears H91.93 Acti ve 57942778 Problem Depression, major, 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 Active 87013965 Problem Pressure injury of left buttock, stage 2 L89.322 Active 606858176 Problem Hyperlipidemia, unspecified hyperlipidemia type E7 8.5 Active 91062156 Problem Pressure ulcer of left buttock, stage 3 L89.323 Active 057325280 Problem Gastroesophageal reflux disease without esophagitis K21.9 Active 807785016 Problem 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 Active 46798975 Problem Pure hypercholesterolemia E78.0 Acti ve 013934272 Problem Post menopausal syndrome N95.1 Activ e 414684527 Problem Decubitus ulcer of left leg, stage 2 L89.892 Active 031516706 Problem Falling R29.6 Active 138027728 Problem Pharyngoesophageal dysphagia R13.14 A ctive [id number] ALLERGIES No Information ENCOUNTERS Encounter Location Date Diagnosis [id number] [facility] [id number] [address] [place] [phone] Jan, [facility] [address] [facility] [id number] [address] [place] [phone] 10 Jan, 2020 Hyperlipidemia, unspecified hyperlipidemia type E78.5 [place] [id number] [place] [id number] [address] [place] [phone] 14 Dec, 2019 Depression, major, in remiss ion F32.5 [facility] [address] [facility] [id number] [address] [place] [id number] 21 Nov, 2019 Exercise counseling Z71.82 [facility] [address] [facility] [id number] [address] [place] [phone] 14 Nov, 2019 Exercise counseling Z71.82 [facility] [address] [facility] [id number] [address] [place] [phone] 07 Nov, 2019 Exercise counseling Z71.82 [place] [address] [address] [facility] [id number] [address] [place] [phone] 31 Oct, 2019 Exercise counseling Z71.82 [place] [address] [address] [facility] [id number] [address] [place] [phone] 24 Oct, 2019 Exercise counseling Z71.82 [place] [address] [address] [facility] [id number] [address] [place] [phone] 17 Oct, 2019 Exercise counseling Z71.82 [place] [address] [address] [facility] [id number] [address] [place] [address] 12 Oct, 2019 Exercise counseling Z71.82 [place] [address] [address] [facility] [id number] [address] [place] [phone] 05 Oct, 2019 Exercise counseling Z71.82 [place] [address] [address] [facility] [id number] [address] [place] [phone] 26 Sep, 2019 Falling R29.6 ; Pharyngoesop hageal dysphagia R13.14 and Pressure ulcer of left buttock, stage 3 L89.323 [place] [address] [address] [facility] [id number] [address] [place] [phone] Sep, Exercise counseling Z71.82 [place] [address] [address] [facility] [id number] [address] [place] [phone] 18 Sep, 2019 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 and Falling R29.6 [place] [address] [address] [facility] [id number] [address] [place] [phone] 13 Sep, 2019 [place] [address] [address] [place] [id number] [address] [place] [phone] Sep, Falling R29.6 [facility] [address] [id number] [address] [place] [phone] Sep, [facility] [address] [facility] [id number] [address] [place] [id number] Sep, Acquired hypothyroidism E03. 9 and Falling R29.6 [facility] [address] [facility] [id number] [address] [place] [phone] Aug, Depression, major, in remiss ion F32.5 [facility] [address] [id number] [address] [place] [address] May, Depression, major, in remiss ion F32.5 [facility] [address] [facility] [id number] [address] [place] [address] May, Wound of left lower extremit y, subsequent encounter S81.802D [facility] [address] [facility] [id number] [address] [place] [address] May, Wound of left lower extremit y, subsequent encounter S81.802D [facility] [address] [facility] [id number] [address] [place] [phone] May, Wound of left lower extremit y, subsequent encounter S81.802D [facility] [address] [facility] [id number] [address] [place] [address] May, Wound of left lower extremit y, subsequent encounter S81.802D [facility] [address] [facility] [id number] [address] [place] [phone] May, [facility] [address] [facility] [id number] [address] [place] [address] May, Peripheral edema R60.9 ; Dec ubitus ulcer of left leg, stage 2 L89.892 ; Dry skin dermatitis L85.3 ; Encounter for immunization Z23 and Breast cancer screening Z12.39 [facility] [address] [facility] [id number] [address] [place] [address] Mar, [facility] [address] [id number] [address] [place] [address] Jan, Depression, major, in remiss ion F32.5 and Morbid obesity E66.01 [facility] [address] [facility] [id number] [address] [place] [phone] Jan, Encounter for [facility] Z00.00 ; Hyperlipidemia, unspecified hyperlipidemia type E78.5 ; Depression, major, 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 ; Gastroesophageal reflux disease without esophagitis K21.9 ; Acquired hypothyroidism E03.9 ; Hearing loss of both ears H91.93 ; Post menopausal syndrome N95.1 and Morbid obesity E66.01 [facility] [address] [facility] [id number] [address] [place] [address] Jan, Hyperlipidemia, unspecified hyperlipidemia type E78.5 and Morbid obesity E66.01 [facility] [address] [facility] [id number] [address] [place] [phone] Jan, [facility] [address] [id number] [address] [place] [phone] December, [facility] [address] [facility] [id number] [address] [place] [phone] December, [facility] [address] [facility] [id number] [address] [place] [address] December, [facility] [address] [facility] [id number] [address] [place] [address] December, Wound of left lower extremit y, subsequent encounter S81.802D [facility] [address] [facility] [id number] [address] [place] [address] Nov, [facility] [address] [facility] [id number] [address] [place] [address] Nov, Blister of left lower extrem ity without infection, initial encounter S80.822A and Morbid obesity E66.01 [facility] [address] [facility] [id number] [address] [place] [address] Nov, [facility] [address] [id number] [address] [place] [phone] Nov, [facility] [address] [id number] [address] [place] [address] Nov, [facility] [address] [id number] [address] [place] [address] Nov, [facility] [address] [id number] [address] [place] [address] Nov, [facility] [address] [id number] [address] [place] [address] Nov, [facility] [address] [id number] [address] [place] [phone] Oct, [facility] [address] [id number] [address] [place] [phone] Oct, Depression, major, in remiss ion F32.5 [facility] [address] [id number] [address] [place] [address] Oct, [facility] [address] [id number] [address] [place] [address] Oct, [facility] [address] [id number] [address] [place] [address] Oct, [facility] [address] [id number] [address] [place] [address] Oct, Morbid obesity E66.01 and Pr essure injury of left buttock, stage 2 L89.322 [facility] [address] [id number] [address] [place] [address] Oct, [facility] [address] [id number] [address] [place] [address] Oct, [facility] [address] [id number] [address] [place] [address] Oct, [facility] [address] [place] [id number] [address] [place] [address] Oct, Pressure injury of other sit e, stage 2 L89.892 and Morbid obesity E66.01 [place] [address] [address] [place] [id number] [address] [place] [address] Sep, Cellulitis of other specifie d site L03.818 and BMI 40.0-44.9, adult Z68.41 [place] [id number] [place] [address] 13 Sep, 2018 Scab R23.4 and BMI 40.0-44.9 , adult Z68.41 [place] [address] [address] [place] [id number] [address] [place] [address] Jun, Major depression in remissio n F32.5 [place] [address] [address] [place] [id number] [address] [place] [address] Apr, [place] [address] [address] 24 Apr, 2018 Encounter for breast cancer screening other than mammogram Z12.39 ; Encounter for immunization Z23 and Colon cancer screening Z12.11 [place] [address] [address] [place] [id number] [address] [place] [address] Mar, Major depression in partial remission F32.4 and BMI 40.0-44.9, adult Z68.41 [place] [id number] [place] [address] Mar, [place] [address] [address] [place] [id number] [address] [place] [address] Mar, Acquired hypothyroidism E03. 9 [place] [address] [address] [place] [id number] [address] [place] [address] Mar, Pain in left knee M25.562 ; Other chronic pain G89.29 and Gastroesophageal reflux disease without esophagitis K21.9 [place] [address] [address] [place] [id number] [address] [place] [address] Jan, [facility] [address] [facility] [id number] [address] [place] [address] Jan, Acquired hypothyroidism E03. 9 [facility] [address] [facility] [id number] [address] [place] [phone] Jan, [facility] [address] [facility] [id number] [address] [place] [address] Jan, Acquired hypothyroidism E03. 9 [facility] [address] [facility] [id number] [address] [place] [address] December, Major depressive disorder in full remission, unspecified whether recurrent F32.5 [facility] [address] [facility] [id number] [address] [place] [address] Nov, Acquired hypothyroidism E03. 9 [place] [address] [address] [facility] [id number] [address] [place] [id number] Nov, Pure hypercholesterolemia E7 8.0 ; Peripheral edema R60.9 and Acquired hypothyroidism E03.9 [facility] [address] [facility] [id number] [address] [place] [address] Oct, Mild acid reflux K21.9 [facility] [address] [facility] [id number] [address] [place] [address] Sep, Major depressive disorder, s glenny episode, in partial remission F32.4 and Long-term use of high-risk medication Z79.899 [place] [address] [address] [facility] [id number] [address] [place] [address] Aug, Encounter for immunization Z 23 [id number] [facility] [id number] [address] [place] [address] Jul, [place] [address] [address] [place] [id number] [address] [place] [address] Jun, Medicare annual wellness vis it, initial Z00.00 ; BMI 40.0-44.9, adult Z68.41 and Encounter for immunization Z23 [id number] [facility] [id number] [address] [place] [address] 10 May, 2017 [place] [address] [address] [facility] [id number] [address] [place] [address] May, Encounter for immunization Z 23 [place] [address] [address] [facility] [id number] [address] [place] [address] 10 May, 2017 Major depression in partial remission F32.4 [place] [address] [place] [id number] [address] [place] [address] Apr, Hearing loss H91.90 ; Encoun ter for immunization Z23 and Encounter for screening mammogram for breast cancer Z12.31 [place] [address] [address] [facility] [id number] [address] [place] [address] Mar, Acquired hypothyroidism E03. 9 [place] [address] [address] [place] [id number] [address] [place] [address] Jan, Acquired hypothyroidism E03. 9 [place] [address] [address] [facility] [id number] [address] [place] [address] Jan, Acute midline low back pain without sciatica M54.5 [place] [address] [address] [place] [id number] [address] [place] [address] Jan, Peripheral edema R60.9 [place] [address] [address] [place] [id number] [address] [place] [address] Jan, Major depression in partial remission F32.4 [place] [address] [address] [facility] [id number] [address] [place] [address] Jan, Localized edema R60.0 [place] [address] [address] [facility] [id number] [address] [place] [address] Nov, Pure hypercholesterolemia E7 8.0 [place] [address] [address] [facility] [id number] [address] [place] [address] Nov, Pure hypercholesterolemia E7 8.0 [place] [address] [address] [facility] [id number] [address] [place] [address] Nov, Peripheral edema R60.9 [facility] [address] [id number] [address] [place] [address] Oct, Major depression in partial remission F32.4 [facility] [address] [id number] [address] [place] [address] Aug, [facility] [address] [id number] [address] [place] [address] Aug, Elevated blood pressure read ing R03.0 [facility] [address] [id number] [address] [place] [address] Aug, [facility] [address] [id number] [address] [place] [address] Jun, Major depression in partial remission F32.4 [facility] [address] [id number] [address] [place] [address] Apr, Major depressive disorder, r ecurrent episode, mild F33.0 [facility] [address] [id number] [address] [place] [address] Mar, Encounter for well woman exa m with routine gynecological exam Z01.419 and Breast cancer screening Z12.39 [facility] [address] [id number] [address] [place] [address] Jan, Hypothyroidism, unspecified type E03.9 [facility] [address] [id number] [address] [place] [address] Jan, Major depressive disorder, r ecurrent episode, mild F33.0 [facility] [address] [id number] [address] [place] [address] Jan, Abscess L02.91 [facility] [address] [id number] [address] [place] [address] Jan, Furuncle L02.92 [facility] [address] [id number] [address] [place] [address] Jan, Major depression in partial remission F32.4 [facility] [address] [id number] [address] [place] [address] 13 Jan, 2016 Major depressive disorder, r ecurrent episode, mild F33.0 [facility] [address] [id number] [address] [place] [address] December, Acute bacterial conjunctivit is of left eye H10.022 [facility] [address] [id number] [address] [place] [address] December, Major depressive disorder, r ecurrent episode, mild F33.0 [facility] [address] [id number] [address] [place] [address] Nov, [facility] [address] [facility] [id number] [address] [place] [address] Nov, Major depressive disorder, r ecurrent episode, mild F33.0 [facility] [address] [facility] [id number] [address] [place] [address] Nov, Hearing loss H91.90 [facility] [address] [facility] [id number] [address] [place] [address] 17 Oct, 2015 Major depression in partial remission F32.4 [facility] [address] [facility] [id number] [address] [place] [address] 15 Oct, 2015 Pneumonia J18.9 [facility] [address] [facility] [id number] [address] [place] [id number] 10 Oct, 2015 Influenza A J10.1 ; Fever, u nspecified R50.9 ; Conjunctivitis H10.9 and Cough R05 [facility] [address] [id number] [address] [place] [phone] 10 Oct, 2015 Major depressive disorder, r ecurrent episode, severe, with psychotic behavior F33.3 [facility] [address] [id number] [address] [place] [address] Aug, [facility] [address] [facility] [id number] [address] [place] [address] Aug, Acquired hypothyroidism E03. 9 and Pure hypercholesterolemia E78.0 [place] [address] [address] [place] [id number] [address] [place] [address] Aug, Major depressive disorder, r ecurrent episode, severe, with psychotic behavior F33.3 [facility] [address] [place] [id number] [address] [place] [address] Jul, [facility] [address] [place] [id number] [address] [place] [id number] Jul, Major depressive disorder, r ecurrent episode, severe, with psychotic behavior F33.3 [place] [id number] [address] [place] [id number] Jun, Major depressive disorder, r ecurrent episode, severe, with psychotic behavior F33.3 [place] [address] [id number] [address] [place] [id number] May, [facility] [id number] [address] [place] [id number] May, Major depressive disorder, r ecurrent episode, severe, with psychotic behavior F33.3 [facility] [id number] [address] [place] [phone] May, Major depressive disorder, r ecurrent episode, severe, with psychotic behavior F33.3 [facility] [address] [id number] [address] [place] [id number] Apr, [facility] [id number] [address] [place] [id number] Apr, Depressive disorder, not els ewhere classified 311 and Unspecified psychosis 298.9 [facility] [id number] [address] [place] [id number] Apr, Depression 311 and Hard of h earing 389.9 [facility] [address] [id number] [address] [place] [id number] 10 Apr, 2015 Schizoaffective disorder 295 .70 [facility] [address] [facility] [id number] [address] [place] [id number] 08 Apr, 2015 Major depressive disorder, r ecurrent episode, severe, specified as with psychotic behavior 296.34 [facility] [address] [facility] [id number] [address] [place] [phone] Apr, Psychosis 298.9 and Depressi on 311 [facility] [address] [facility] [id number] [address] [place] [phone] Apr, Depressive disorder, not els ewhere classified 311 and Unspecified psychosis 298.9 [facility] [address] [facility] [id number] [address] [place] [id number] Mar, Screening for cervical cance r V76.2 ; Well woman exam with routine gynecological exam V72.31 ; Colon cancer screening V76.51 ; Breast cancer screening V76.10 ; Irritable bowel syndrome 564.1 and Psychosis 298.9 [facility] [address] [facility] [id number] [address] [place] [id number] Mar, Psychosis 298.9 [facility] [address] [facility] [id number] [address] [place] [phone] Mar, Unspecified psychosis 298.9 [facility] [address] [facility] [id number] [address] [place] [id number] Nov, [facility] [address] [facility] [id number] [address] [place] [phone] Nov, [facility] [address] [facility] [id number] [address] [place] [id number] Oct, [facility] [address] [facility] [id number] [address] [place] [phone] Oct, [facility] [address] [facility] [id number] [address] [place] [id number] Jul, [facility] [address] [facility] [id number] [address] [place] [id number] Jul, [facility] [address] [id number] [facility] [address] 13 May, 2014 [facility] [address] [id number] [facility] [address] 11 Apr, 2014 [facility] [address] [id number] [facility] [address] Apr, [facility] [address] [id number] [address] [place] [address], [place] [address] 05 Apr, 2014 [facility] [address] [id number] [address] [place] [address], [place] [address] 05 Apr, 2014 [facility] [address] [id number] [address] [place] [address], [place] [address] Apr, [facility] [address] [id number] [address] [place] [address], [place] [address] Mar, [facility] [address] [id number] [address] [place] [address], [place] [address] Mar, [facility] [address] [id number] [address] [place] [address], [place] [address] Mar, [facility] [address] [id number] [address] [place] [address], [place] [address] Mar, [facility] [address] [id number] [address] [place] [address], [place] [address] Mar, [facility] [address] [id number] [address] [place] [address], [place] [address] Mar, [facility] [address] [id number] [address] [place] [address], [place] [address] Mar, [facility] [address] [id number] [address] [place] [address], [place] [address] Mar, [facility] [address] [id number] [address] [place] [address], [place] [address] Mar, [facility] [address] [id number] [address] [place] [address], [place] [address] Mar, [facility] [address] [id number] [address] [place] [address], [place] [address] Jan, [facility] [address] [id number] [address] [place] [address], [place] [address] Jan, [facility] [address] [id number] [address] [place] [address], [place] [address] December, [facility] [address] [id number] [address] [place] [address], [place] [address] December, [facility] [address] [id number] [address] [place] [address], [place] [address] Nov, [facility] [address] [id number] [address] [place] [address], [place] [address] Nov, [facility] [address] [id number] [address] [place] [address], [place] [address] Sep, [facility] [address] [id number] [address] [place] [address], [place] [address] Sep, [facility] [address] [id number] [address] [place] [address], [place] [address] Sep, [facility] [address] [id number] [address] [place] [address], [place] [address] Sep, [facility] [address] [id number] [address] [place] [address], [place] [address] Jun, [facility] [address] [id number] [address] [place] [address], [place] [address] Jun, [facility] [address] [id number] [address] [place] [address], [place] [address] Jun, [facility] [address] [id number] [address] [place] [address], [place] [address] Jun, [facility] [address] [id number] [address] [place] [address], [place] [address] 16 May, 2013 [facility] [address] [id number] [address] [place] [address], [place] [address] May, [facility] [address] [id number] [address] [place] [address], [place] [address] Apr, [facility] [address] [id number] [address] [place] [address], [place] [address] Mar, [facility] [address] [id number] [address] [place] [address], [place] [address] Mar, [facility] [address] [id number] [address] [place] [address], [place] [address] Mar, [facility] [address] [id number] [address] [place] [address], [place] [address] Mar, [facility] [address] [id number] [address] [place] [address], [place] [address] Mar, [facility] [address] [id number] [address] [place] [address], [place] [address] Jan, [facility] [address] [id number] [address] [place] [address], [place] [address] Jan, [facility] [address] [id number] [address] [place] [address], [place] [address] Jan, [facility] [address] [id number] [address] [place] [address], [place] [address] December, [facility] [address] [id number] [address] [place] [address], [place] [address] Oct, [facility] [address] [id number] [address] [place] [address], [place] [address] Oct, [facility] [address] [id number] [address] [place] [address], [place] [address] Oct, [facility] [address] [id number] [address] [place] [address], [place] [address] Oct, [facility] [address] [id number] [address] [place] [address], [place] [address] Aug, [facility] [address] [id number] [address] [place] [address], [place] [address] 16 Jun, 2012 [facility] [address] [id number] [address] [place] [address], [place] [address] Jun, [facility] [address] [id number] [address] [place] [address], [place] [address] Jun, [facility] [address] [id number] [address] [place] [address], [place] [address] Jun, [facility] [address] [id number] [address] [place] [address], [place] [address] 05 May, 2012 [facility] [address] [id number] [address] [place] [address], [place] [address] Apr, [facility] [address] [id number] [address] [place] [address], [place] [address] Mar, [facility] [address] [id number] [address] [place] [address], [place] [address] Jan, [facility] [address] [id number] [address] [place] [address], [place] [address] Jan, [facility] [address] [id number] [address] [place] [address], [place] [address] December, [facility] [address] [id number] [address] [place] [address], [place] [address] December, [facility] [address] [id number] [address] [place] [address], [place] [address] December, [facility] [address] [id number] [address] [place] [address], [place] [address] December, [facility] [address] [id number] [address] [place] [address], [place] [address] Nov, [facility] [address] [id number] [address] [place] [address], [place] [address] Oct, [facility] [address] [id number] [address] [address] Sep, [facility] [address] [id number] [address] [place] [id number] Sep, [facility] [address] [id number] [address] [place] [address] Sep, [facility] [address] [id number] [address] [place] [address] Sep, [facility] [address] [id number] [address] [place] [id number] Aug, [facility] [address] [id number] [address] [place] [address] Jun, [facility] [address] [id number] [address] [place] [address] May, [facility] [address] [id number] [address] [place] [address] Mar, [facility] [address] [id number] [address] [place] [address] Jun, [facility] [address] [id number] [address] [place] [address] May, [facility] [address] [id number] [address] [place] [address] May, IMMUNIZATIONS No Known Immunizations SOCIAL HISTORY Never Assessed REASON FOR VISIT PLAN OF CARE VITAL SIGNS Blood pressure systolic 136 mmHg 2013-03-24 Blood pressure diastolic 78 mmHg 2013-03-24 MEDICATIONS Unknown Medications RESULTS No Results PROCEDURES [...]
--- OUTSIDE RECORDS SUMMARY | 2020-02-21 11:54 | XMS REPORT ---
Author Author Tarik POTTS Organization [employer] Address Unknown Phone Unavailable Care Team Providers Care Supervisor Last Model Department Name Role Phone ROMA POTTS CP Unavailable [...] V76.2 Active Problem Edema 782.3 Active Assessment Psychosis 298.9 Active Assessment Depression 311 Active Problem Depressive disorder, not elsewhere classified [...] Date End Date Status Dosage Abilify [facility] [address]-89 10 MG Orally Once a day at hs Mar 20, 2015 1 tablet Levothyroxine Sodium [facility] [address]-06 25 MCG Orally Once a day 1 tablet Bentyl [facility] [address]-83 10 MG Orally Fou r times a day before meals and at bedtime for urgency with bowel movements Mar 28, 2015 May 27, 2015 1 capsule Prozac [facility] [address]-31 20 MG Orally Once a day 1 capsule in the morning with 1 10mg tab Procedures Procedure Coding System Code Date Office Visit, Est Pt., Level 3 CPT-4 07548 S ept 2014 Vital Signs Date/Time: Apr 03, 2015 Temperature 98.8 F Weight 244 lbs Height 65 in BMI 40.60 Index Blood Pressure Diastolic 76 mmHg Blood Pressure Systolic 138 mmHg Cardiac Monitoring Heart Rate 68 bpm Results No Known Results Summary Purpose [employer] Submission
--- OUTSIDE RECORDS SUMMARY | 2020-02-21 11:54 | XMS REPORT ---
Author Author Tarik POTTS Organization [facility] [place] Address [address] [place] [address] Care Team Providers Care Front End Web Designer Name Role Phone ROMA POTTS Unavailable PROBLEMS Type Condition ICD9-CM Code HIJ72-[place] Code Onset Dates Condition S tatus SNOMED Code Problem Osteopenia after menopause M81.0 Act mode 798305716 Problem Acquired hypothyroidism E03.9 Active 329772469 Problem Hearing loss of both ears H91.93 Acti ve 55513202 Problem Depression, major, 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 Active 70741452 Problem Pressure injury of left buttock, stage 2 L89.322 Active 120592567 Problem Hyperlipidemia, unspecified hyperlipidemia type E7 8.5 Active 74969205 Problem Pressure ulcer of left buttock, stage 3 L89.323 Active 366109801 Problem Gastroesophageal reflux disease without esophagitis K21.9 Active 926701998 Problem 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 Active 44674445 Problem Pure hypercholesterolemia E78.0 Acti ve 400612661 Problem Post menopausal syndrome N95.1 Activ e 187162715 Problem Decubitus ulcer of left leg, stage 2 L89.892 Active 271720616 Problem Falling R29.6 Active 509266524 Problem Pharyngoesophageal dysphagia R13.14 A ctive [id number] ALLERGIES No Information ENCOUNTERS Encounter Location Date Diagnosis [facility] [place] [address] [facility] [id number] [address] [place] [phone] Jan, [facility] [place] [address] [facility] [id number] [address] [place] [id number] 10 Jan, 2020 Hyperlipidemia, unspecified hyperlipidemia type E78.5 [facility] [place] [address] [facility] [id number] [address] [place] [phone] December, Depression, major, in remiss ion F32.5 [place] [address] [facility] [id number] [address] [place] [id number] 21 Nov, 2019 Exercise counseling Z71.82 [place] [address] [address] [facility] [id number] [address] [place] [phone] 14 Nov, 2019 Exercise counseling Z71.82 [place] [address] [address] [place] [id number] [address] [place] [id number] 07 Nov, 2019 Exercise counseling Z71.82 [place] [address] [address] [facility] [id number] [address] [place] [phone] 31 Oct, 2019 Exercise counseling Z71.82 [place] [address] [address] [place] [id number] [address] [place] [id number] 24 Oct, 2019 Exercise counseling Z71.82 [place] [address] [address] [place] [id number] [address] [place] [phone] 17 Oct, 2019 Exercise counseling Z71.82 [place] [address] [place] [id number] [address] [place] [id number] 12 Oct, 2019 Exercise counseling Z71.82 [place] [address] [place] [id number] [address] [place] [id number] 05 Oct, 2019 Exercise counseling Z71.82 [place] [address] [address] [place] [id number] [address] [place] [phone] 26 Sep, 2019 Falling R29.6 ; Pharyngoesop hageal dysphagia R13.14 and Pressure ulcer of left buttock, stage 3 L89.323 [place] [address] [address] [place] [id number] [address] [place] [id number] 20 Sep, 2019 Exercise counseling Z71.82 [place] [address] [address] [place] [id number] [address] [place] [id number] 18 Sep, 2019 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 and Falling R29.6 [place] [address] [address] [place] [id number] [address] [place] [phone] 13 Sep, 2019 [facility] [place] [address] [facility] [id number] [address] [place] [phone] Sep, Falling R29.6 [facility] [place] [address] [id number] [address] [place] [phone] Sep, [facility] [place] [address] [facility] [id number] [address] [place] [id number] Sep, Acquired hypothyroidism E03. 9 and Falling R29.6 [facility] [place] [address] [facility] [id number] [address] [place] [phone] Aug, Depression, major, in remiss ion F32.5 [facility] [place] [address] [facility] [id number] [address] [place] [phone] May, Depression, major, in remiss ion F32.5 [facility] [place] [address] [facility] [id number] [address] [place] [phone] May, Wound of left lower extremit y, subsequent encounter S81.802D [facility] [place] [address] [facility] [id number] [address] [place] [phone] May, Wound of left lower extremit y, subsequent encounter S81.802D [facility] [place] [address] [facility] [id number] [address] [place] [phone] May, Wound of left lower extremit y, subsequent encounter S81.802D [facility] [place] [address] [facility] [id number] [address] [place] [phone] May, Wound of left lower extremit y, subsequent encounter S81.802D [facility] [place] [address] [facility] [id number] [address] [place] [phone] May, [facility] [place] [address] [facility] [id number] [address] [place] [id number] May, Peripheral edema R60.9 ; Dec ubitus ulcer of left leg, stage 2 L89.892 ; Dry skin dermatitis L85.3 ; Encounter for immunization Z23 and Breast cancer screening Z12.39 [place] [address] [id number] [address] [place] [phone] Mar, [facility] [place] [address] [id number] [address] [place] [phone] Jan, Depression, major, in remiss ion F32.5 and Morbid obesity E66.01 [place] [address] [address] [facility] [id number] [address] [place] [phone] Jan, [facility] Z00.00 ; Hyperlipidemia, unspecified hyperlipidemia type E78.5 ; Depression, major, 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 ; Gastroesophageal reflux disease without esophagitis K21.9 ; Acquired hypothyroidism E03.9 ; Hearing loss of both ears H91.93 ; Post menopausal syndrome N95.1 and Morbid obesity E66.01 [place] [address] [address] [facility] [id number] [address] [place] [id number] Jan, Hyperlipidemia, unspecified hyperlipidemia type E78.5 and Morbid obesity E66.01 [place] [address] [id number] [address] [place] [phone] Jan, [place] [address] [facility] [id number] [address] [place] [id number] December, [place] [address] [facility] [id number] [address] [place] [phone] December, [place] [address] [facility] [id number] [address] [place] [phone] December, [place] [address] [address] [facility] [id number] [address] [place] [phone] December, Wound of left lower extremit y, subsequent encounter S81.802D [place] [address] [facility] [id number] [address] [place] [phone] Nov, [place] [address] [facility] [id number] [address] [place] [id number] Nov, Blister of left lower extrem ity without infection, initial encounter S80.822A and Morbid obesity E66.01 [facility] [place] [address] [id number] [address] [place] [phone] Nov, [facility] [place] [address] [id number] [address] [place] [phone] Nov, [facility] [place] [address] [id number] [address] [place] [phone] Nov, [facility] [place] [address] [id number] [address] [place] [phone] Nov, [facility] [place] [address] [id number] [address] [place] [phone] Nov, [facility] [place] [address] [id number] [address] [place] [phone] Nov, [facility] [place] [address] [id number] [address] [place] [phone] Oct, [facility] [place] [address] [id number] [address] [place] [phone] Oct, Depression, major, in remiss ion F32.5 [facility] [place] [address] [id number] [address] [place] [phone] Oct, [facility] [place] [address] [id number] [address] [place] [phone] Oct, [facility] [place] [address] [id number] [address] [place] [phone] Oct, [facility] [place] [address] [id number] [address] [place] [id number] Oct, Morbid obesity E66.01 and Pr essure injury of left buttock, stage 2 L89.322 [facility] [place] [address] [id number] [address] [place] [id number] Oct, [facility] [place] [address] [id number] [address] [place] [id number] Oct, [facility] [place] [address] [facility] [id number] [address] [place] [id number] Oct, [place] [address] [address] [facility] [id number] [address] [place] [id number] Oct, Pressure injury of other sit e, stage 2 L89.892 and Morbid obesity E66.01 [facility] [place] [address] [facility] [id number] [address] [place] [phone] Sep, Cellulitis of other specifie d site L03.818 and BMI 40.0-44.9, adult Z68.41 [place] [address] [address] [facility] [id number] [address] [place] [phone] 13 Sep, 2018 Scab R23.4 and BMI 40.0-44.9 , adult Z68.41 [place] [address] [address] [facility] [id number] [address] [place] [phone] Jun, Major depression in remissio n F32.5 [place] [address] [address] [facility] [id number] [address] [place] [phone] 27 Apr, 2018 [place] [address] [facility] [id number] [address] [place] [id number] 24 Apr, 2018 Encounter for breast cancer screening other than mammogram Z12.39 ; Encounter for immunization Z23 and Colon cancer screening Z12.11 [place] [address] [address] [facility] [id number] [address] [place] [phone] Mar, Major depression in partial remission F32.4 and BMI 40.0-44.9, adult Z68.41 [place] [address] [address] [facility] [id number] [address] [place] [phone] Mar, [place] [address] [address] [place] [id number] [address] [place] [id number] Mar, Acquired hypothyroidism E03. 9 [place] [address] [address] [facility] [id number] [address] [place] [id number] Mar, Pain in left knee M25.562 ; Other chronic pain G89.29 and Gastroesophageal reflux disease without esophagitis K21.9 [facility] [place] [address] [facility] [id number] [address] [place] [phone] Jan, [facility] [place] [address] [facility] [id number] [address] [place] [phone] Jan, Acquired hypothyroidism E03. 9 [facility] [place] [address] [facility] [id number] [address] [place] [phone] Jan, [facility] [place] [address] [place] [id number] [address] [place] [phone] Jan, Acquired hypothyroidism E03. 9 [place] [address] [address] [facility] [id number] [address] [place] [phone] December, Major depressive disorder in full remission, unspecified whether recurrent F32.5 [place] [address] [place] [id number] [address] [place] [id number] Nov, Acquired hypothyroidism E03. 9 [place] [address] [place] [id number] [address] [place] [phone] Nov, Pure hypercholesterolemia E7 8.0 ; Peripheral edema R60.9 and Acquired hypothyroidism E03.9 [place] [address] [address] [facility] [id number] [address] [place] [id number] Oct, Mild acid reflux K21.9 [facility] [place] [address] [facility] [id number] [address] [place] [id number] Sep, Major depressive disorder, s glenny episode, in partial remission F32.4 and Long-term use of high-risk medication Z79.899 [place] [address] [facility] [id number] [address] [place] [phone] Aug, Encounter for immunization Z 23 [place] [address] [address] [facility] [id number] [address] [place] [phone] Jul, [facility] [place] [address] [place] [id number] [address] [place] [id number] Jun, Medicare annual wellness vis it, initial Z00.00 ; BMI 40.0-44.9, adult Z68.41 and Encounter for immunization Z23 [place] [address] [id number] [address] [place] [id number] 10 May, 2017 [facility] [place] [address] [id number] [address] [place] [phone] 10 May, 2017 Encounter for immunization Z 23 [facility] [place] [address] [facility] [id number] [address] [place] [phone] 10 May, 2017 Major depression in partial remission F32.4 [place] [address] [address] [facility] [id number] [address] [place] [phone] Apr, Hearing loss H91.90 ; Encoun ter for immunization Z23 and Encounter for screening mammogram for breast cancer Z12.31 [place] [address] [address] [facility] [id number] [address] [place] [phone] Mar, Acquired hypothyroidism E03. 9 [place] [address] [address] [facility] [id number] [address] [place] [phone] Jan, Acquired hypothyroidism E03. 9 [place] [address] [address] [facility] [id number] [address] [place] [phone] Jan, Acute midline low back pain without sciatica M54.5 [place] [address] [address] [facility] [id number] [address] [place] [phone] Jan, Peripheral edema R60.9 [place] [address] [address] [facility] [id number] [address] [place] [phone] Jan, Major depression in partial remission F32.4 [place] [address] [id number] [address] [place] [phone] Jan, Localized edema R60.0 [place] [address] [address] [facility] [id number] [address] [place] [phone] Nov, Pure hypercholesterolemia E7 8.0 [place] [address] [facility] [id number] [address] [place] [phone] Nov, Pure hypercholesterolemia E7 8.0 [facility] [place] [address] [id number] [address] [place] [phone] Nov, Peripheral edema R60.9 [facility] [place] [address] [id number] [address] [place] [phone] Oct, Major depression in partial remission F32.4 [facility] [place] [address] [facility] [id number] [address] [place] [phone] Aug, [facility] [place] [address] [facility] [id number] [address] [place] [phone] Aug, Elevated blood pressure read ing R03.0 [facility] [place] [address] [facility] [id number] [address] [place] [phone] Aug, [facility] [place] [address] [facility] [id number] [address] [place] [phone] Jun, Major depression in partial remission F32.4 [facility] [place] [address] [facility] [id number] [address] [place] [phone] Apr, Major depressive disorder, r ecurrent episode, mild F33.0 [place] [address] [facility] [id number] [address] [place] [id number] Mar, Encounter for well woman exjoyce m with routine gynecological exam Z01.419 and Breast cancer screening Z12.39 [place] [address] [address] [facility] [id number] [address] [place] [phone] Jan, Hypothyroidism, unspecified type E03.9 [facility] [place] [address] [facility] [id number] [address] [place] [phone] Jan, Major depressive disorder, r ecurrent episode, mild F33.0 [facility] [place] [address] [facility] [id number] [address] [place] [phone] Jan, Abscess L02.91 [facility] [place] [address] [facility] [id number] [address] [place] [phone] Jan, Furuncle L02.92 [facility] [place] [address] [facility] [id number] [address] [place] [phone] 16 Jan, 2016 Major depression in partial remission F32.4 [facility] [place] [address] [facility] [id number] [address] [place] [id number] 13 Jan, 2016 Major depressive disorder, r ecurrent episode, mild F33.0 [facility] [address] [facility] [id number] [address] [place] [id number] 17 Dec, 2015 Acute bacterial conjunctivit is of left eye H10.022 [place] [address] [address] [facility] [id number] [address] [place] [phone] December, Major depressive disorder, r ecurrent episode, mild F33.0 [place] [address] [address] [facility] [id number] [address] [place] [phone] Nov, [place] [address] [address] [facility] [id number] [address] [place] [id number] Nov, Major depressive disorder, r ecurrent episode, mild F33.0 [place] [address] [facility] [id number] [address] [place] [id number] 18 Nov, 2015 Hearing loss H91.90 [place] [address] [address] [facility] [id number] [address] [place] [phone] 17 Oct, 2015 Major depression in partial remission F32.4 [place] [address] [facility] [id number] [address] [place] [phone] 15 Oct, 2015 Pneumonia J18.9 [facility] [address] [facility] [id number] [address] [place] [phone] 10 Oct, 2015 Influenza A J10.1 ; Fever, u nspecified R50.9 ; Conjunctivitis H10.9 and Cough R05 [place] [address] [address] [facility] [id number] [address] [place] [id number] 10 Oct, 2015 Major depressive disorder, r ecurrent episode, severe, with psychotic behavior F33.3 [place] [address] [facility] [id number] [address] [place] [phone] Aug, [facility] [place] [address] [facility] [id number] [address] [place] [phone] Aug, Acquired hypothyroidism E03. 9 and Pure hypercholesterolemia E78.0 [facility] [place] [address] [id number] [address] [place] [id number] Aug, Major depressive disorder, r ecurrent episode, severe, with psychotic behavior F33.3 [facility] [place] [address] [facility] [id number] [address] [place] [id number] Jul, [facility] [place] [address] [facility] [id number] [address] [place] [phone] Jul, Major depressive disorder, r ecurrent episode, severe, with psychotic behavior F33.3 [facility] [place] [address] [facility] [id number] [address] [place] [phone] Jun, Major depressive disorder, r ecurrent episode, severe, with psychotic behavior F33.3 [facility] [place] [address] [facility] [id number] [address] [place] [phone] May, [facility] [place] [address] [facility] [id number] [address] [place] [phone] May, Major depressive disorder, r ecurrent episode, severe, with psychotic behavior F33.3 [facility] [place] [address] [facility] [id number] [address] [place] [id number] May, Major depressive disorder, r ecurrent episode, severe, with psychotic behavior F33.3 [facility] [place] [address] [facility] [id number] [address] [place] [phone] Apr, [facility] [place] [address] [facility] [id number] [address] [place] [phone] Apr, Depressive disorder, not els ewhere classified 311 and Unspecified psychosis 298.9 [facility] [place] [address] [facility] [id number] [address] [place] [phone] Apr, Depression 311 and Hard of h earing 389.9 [facility] [place] [address] [facility] [id number] [address] [place] [id number] 10 Apr, 2015 Schizoaffective disorder 295 .70 [facility] [place] [address] [facility] [id number] [address] [place] [id number] 08 Apr, 2015 Major depressive disorder, r ecurrent episode, severe, specified as with psychotic behavior 296.34 [facility] [place] [address] [facility] [id number] [address] [place] [id number] Apr, Psychosis 298.9 and Depressi on 311 [facility] [place] [address] [facility] [id number] [address] [place] [id number] Apr, Depressive disorder, not els ewhere classified 311 and Unspecified psychosis 298.9 [facility] [place] [address] [facility] [id number] [address] [place] [id number] Mar, Screening for cervical cance r V76.2 ; Well woman exam with routine gynecological exam V72.31 ; Colon cancer screening V76.51 ; Breast cancer screening V76.10 ; Irritable bowel syndrome 564.1 and Psychosis 298.9 [facility] [place] [address] [place] [id number] [address] [place] [phone] Mar, Psychosis 298.9 [facility] [place] [address] [facility] [id number] [address] [place] [phone] Mar, Unspecified psychosis 298.9 [facility] [place] [address] [facility] [id number] [address] [place] [phone] Nov, [facility] [place] [address] [facility] [id number] [address] [place] [phone] Nov, [facility] [place] [address] [facility] [id number] [address] [place] [phone] Oct, [facility] [place] [address] [place] [id number] [address] [place] [phone] Oct, [facility] [place] [address] [place] [id number] [address] [place] [phone] Jul, [facility] [place] [address] [id number] [facility] [place] [address] Jul, [facility] [address] [id number] [address] [place] [address], [place] [address] May, [facility] [address] [id number] [facility] [place] [address] Apr, [facility] [address] [id number] [address] [place] [address], [place] [address] Apr, [facility] [address] [id number] [address] [place] [address], [place] [id number] 05 Apr, 2014 [facility] [address] [id number] [address] [place] [address], [place] [address] 05 Apr, 2014 [facility] [address] [id number] [address] [place] [address], [place] [address] Apr, [facility] [address] [id number] [address] [place] [address], [place] [address] Mar, [facility] [address] [id number] [address] [place] [address], [place] [address] Mar, [facility] [address] [id number] [address] [place] [address], [place] [address] Mar, [facility] [address] [id number] [address] [place] [address], [place] [address] Mar, [facility] [address] [id number] [address] [place] [address], [place] [address] Mar, [facility] [address] [id number] [address] [place] [address], [place] [address] Mar, [facility] [address] [id number] [address] [place] [address], [place] [address] Mar, [facility] [address] [id number] [address] [place] [address], [place] [address] Mar, [facility] [address] [id number] [address] [place] [address], [place] [address] Mar, [facility] [address] [id number] [address] [place] [address], [place] [address] Mar, [facility] [address] [id number] [address] [place] [address], [place] [address] Jan, [facility] [address] [id number] [address] [place] [address], [place] [address] Jan, [facility] [address] [id number] [address] [place] [address], [place] [address] December, [facility] [address] [id number] [address] [place] [address], [place] [address] December, [facility] [address] [id number] [address] [place] [address], [place] [address] Nov, [facility] [address] [id number] [address] [place] [address], [place] [address] Nov, [facility] [address] [id number] [address] [place] [address], [place] [address] Sep, [facility] [address] [id number] [address] [place] [address], [place] [address] Sep, [facility] [address] [id number] [address] [place] [address], [place] [address] Sep, [facility] [address] [id number] [address] [place] [address], [place] [address] Sep, [facility] [address] [id number] [address] [place] [address], [place] [address] Jun, [facility] [address] [id number] [address] [place] [address], [place] [address] Jun, [facility] [address] [id number] [address] [place] [address], [place] [address] Jun, [facility] [address] [id number] [address] [place] [address], [place] [address] Jun, [facility] [address] [id number] [address] [place] [address], [place] [address] 16 May, 2013 [facility] [address] [id number] [address] [place] [address], [place] [address] May, [facility] [address] [id number] [address] [place] [address], [place] [address] Apr, [facility] [address] [id number] [address] [place] [address], [place] [address] Mar, [facility] [address] [id number] [address] [place] [address], [place] [address] Mar, [facility] [address] [id number] [address] [place] [address], [place] [address] Mar, [facility] [address] [id number] [address] [place] [address], [place] [address] Mar, [facility] [address] [id number] [address] [place] [address], [place] [address] Mar, [facility] [address] [id number] [address] [place] [address], [place] [address] Jan, [facility] [address] [id number] [address] [place] [address], [place] [address] Jan, [facility] [address] [id number] [address] [place] [address], [place] [address] Jan, [facility] [address] [id number] [address] [place] [address], [place] [address] December, [facility] [address] [id number] [address] [place] [address], [place] [address] Oct, [facility] [address] [id number] [address] [place] [address], [place] [address] Oct, [facility] [address] [id number] [address] [place] [address], [place] [address] Oct, [facility] [address] [id number] [address] [place] [address], [place] [address] Oct, [facility] [address] [id number] [address] [place] [address], [place] [address] Aug, [facility] [address] [id number] [address] [place] [address], [place] [address] Jun, [facility] [address] [id number] [address] [place] [address], [place] [address] Jun, [facility] [address] [id number] [address] [place] [address], [place] [address] Jun, [facility] [address] [id number] [address] [place] [address], [place] [address] Jun, [facility] [address] [id number] [address] [place] [address], [place] [address] May, [facility] [address] [id number] [address] [place] [address], [place] [address] Apr, [facility] [address] [id number] [address] [place] [address], [place] [address] Mar, [facility] [address] [id number] [address] [place] [address], [place] [address] Jan, [facility] [address] [id number] [address] [place] [address], [place] [address] Jan, [facility] [address] [id number] [address] [place] [address], [place] [address] December, [facility] [address] [id number] [address] [place] [address], [place] [address] December, [facility] [address] [id number] [address] [place] [address], [place] [address] December, [facility] [address] [id number] [address] [place] [address], [place] [address] December, [facility] [address] [id number] [address] [place] [address], [place] [address] Nov, [facility] [address] [id number] [address] [place] [address], [place] [address] Oct, [facility] [place] [address] [id number] [address] [place] [phone] Sep, [facility] [place] [address] [id number] [address] [place] [phone] Sep, [facility] [place] [address] [id number] [address] [place] [phone] Sep, [facility] [place] [address] [id number] [address] [place] [phone] Sep, [facility] [place] [address] [id number] [address] [place] [phone] Aug, [facility] [place] [address] [id number] [address] [place] [phone] Jun, [facility] [place] [address] [id number] [address] [place] [id number] May, [facility] [place] [address] [id number] [address] [place] [phone] Mar, [facility] [place] [address] [id number] [address] [place] [phone] Jun, [facility] [place] [address] [id number] [address] [place] [phone] May, [facility] [place] [address] [id number] [address] [place] [phone] May, IMMUNIZATIONS No Known Immunizations SOCIAL HISTORY [...]
--- OUTSIDE RECORDS SUMMARY | 2020-02-21 11:54 | XMS REPORT ---
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 Name Role Phone ROMA POTTS Unavailable PROBLEMS Type Condition ICD9-CM Code GWN18-DG Code Onset Dates Condition S tatus SNOMED Code Problem Pure hypercholesterolemia E78.0 Acti ve 650637989 Problem Major depression in partial remission F32.4 Active 52946443 Problem Major depressive disorder, recurrent episode, mild F33.0 Active 228465666 Problem Hearing loss of both ears H91.93 Acti ve 53503537 Problem Acquired hypothyroidism E03.9 Active 512249904 Problem Mild acid reflux K21.9 Active 235 568372 Problem Medicare welcome exam Z00.00 Active 002032490 Problem Calcaneal spur, unspecified laterality M77.30 Active 04187625 Problem Talipes varus, 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 62386731 Problem Hearing loss H91.90 Active 6331758 1 Problem Edema, unspecified type R60.9 Active 645203931 ALLERGIES No Information ENCOUNTERS Encounter Location Date Diagnosis [place] [address] [facility] [id number] [address] [place] [address] December, [place] [address] [facility] [id number] [address] [place] [address] Nov, [place] [address] [facility] [id number] [address] [place] [address] Oct, Mild acid reflux K21.9 [place] [address] [facility] [id number] [address] [place] [address] 08 Sep, 2017 Major depressive disorder, s glenny episode, in partial remission F32.4 and Long-term use of high-risk medication Z79.899 [place] [address] [place] [id number] [address] [place] [address] Aug, Encounter for immunization Z 23 [facility] [address] [facility] [id number] [address] [place] [address] Jul, [facility] [address] [facility] [id number] [address] [place] [address] Jun, Medicare annual wellness vis it, initial Z00.00 ; BMI 40.0-44.9, adult Z68.41 and Encounter for immunization Z23 [facility] [address] [facility] [id number] [address] [place] [address] May, [place] [address] [place] [id number] [place] [address] May, Encounter for immunization Z 23 [place] [address] [place] [id number] [address] [place] [address] May, Major depression in partial remission F32.4 [place] [id number] [place] [address] Apr, Hearing loss H91.90 ; Encoun ter for immunization Z23 and Encounter for screening mammogram for breast cancer Z12.31 [place] [address] [place] [id number] [address] [place] [address] Mar, Acquired hypothyroidism E03. 9 [place] [address] [place] [id number] [address] [place] [address] Jan, Acquired hypothyroidism E03. 9 [place] [address] [facility] [id number] [address] [place] [address] Jan, Acute midline low back pain without sciatica M54.5 [place] [address] [place] [id number] [address] [place] [address] Jan, Peripheral edema R60.9 [place] [address] [place] [id number] [address] [place] [address] Jan, Major depression in partial remission F32.4 [place] [address] [place] [id number] [place] [address] Jan, Localized edema R60.0 [facility] [address] [id number] [address] [place] [address] Nov, Pure hypercholesterolemia E7 8.0 [facility] [address] [id number] [address] [place] [address] Nov, Pure hypercholesterolemia E7 8.0 [facility] [address] [id number] [address] [place] [address] Nov, Peripheral edema R60.9 [facility] [address] [id number] [address] [place] [address] Oct, Major depression in partial remission F32.4 [facility] [address] [facility] [id number] [address] [place] [address] Aug, [facility] [address] [facility] [id number] [address] [place] [address] Aug, Elevated blood pressure read ing R03.0 [facility] [address] [id number] [address] [place] [address] Aug, [facility] [address] [facility] [id number] [address] [place] [address] Jun, Major depression in partial remission F32.4 [facility] [address] [facility] [id number] [address] [place] [address] Apr, Major depressive disorder, r ecurrent episode, mild F33.0 [facility] [address] [id number] [address] [place] [address] Mar, Encounter for well woman exa m with routine gynecological exam Z01.419 and Breast cancer screening Z12.39 [facility] [address] [facility] [id number] [address] [place] [address] Jan, Hypothyroidism, unspecified type E03.9 [facility] [address] [facility] [id number] [address] [place] [address] Jan, Major depressive disorder, r ecurrent episode, mild F33.0 [facility] [address] [id number] [address] [place] [address] 30 Jan, 2016 Abscess L02.91 [facility] [address] [id number] [address] [place] [address] Jan, Furuncle L02.92 [facility] [address] [id number] [address] [place] [address] 16 Jan, 2016 Major depression in partial remission F32.4 [facility] [address] [id number] [address] [place] [address] Jan, Major depressive disorder, r ecurrent episode, mild F33.0 [facility] [address] [id number] [address] [place] [address] December, Acute bacterial conjunctivit is of left eye H10.022 [place] [address] [id number] [address] [place] [address] December, Major depressive disorder, r ecurrent episode, mild F33.0 [facility] [address] [id number] [address] [place] [address] Nov, [facility] [address] [id number] [address] [place] [address] Nov, Major depressive disorder, r ecurrent episode, mild F33.0 [facility] [address] [id number] [address] [place] [address] Nov, Hearing loss H91.90 [facility] [address] [id number] [address] [place] [address] 17 Oct, 2015 Major depression in partial remission F32.4 [facility] [address] [id number] [address] [place] [address] 15 Oct, 2015 Pneumonia J18.9 [facility] [address] [facility] [id number] [address] [place] [address] 10 Mar, 2016 Influenza A J10.1 ; Fever, u nspecified R50.9 ; Conjunctivitis H10.9 and Cough R05 [place] [address] [address] Oct, Major depressive disorder, r ecurrent episode, severe, with psychotic behavior F33.3 [facility] [address] [address] Aug, [place] [address] [address] Aug, Acquired hypothyroidism E03. 9 and Pure hypercholesterolemia E78.0 [place] [address] [phone] Aug, Major depressive disorder, r ecurrent episode, severe, with psychotic behavior F33.3 [place] [address] [address] Jul, [place] [address] [address] Jul, Major depressive disorder, r ecurrent episode, severe, with psychotic behavior F33.3 [place] [address] [address] Jun, Major depressive disorder, r ecurrent episode, severe, with psychotic behavior F33.3 [place] [address] [place] [id number] [address] [place] [address] May, [place] [address] [address] May, Major depressive disorder, r ecurrent episode, severe, with psychotic behavior F33.3 [place] [address] [address] May, Major depressive disorder, r ecurrent episode, severe, with psychotic behavior F33.3 [place] [id number] [place] [id number] [address] [place] [address] Apr, [facility] [address] [facility] [id number] [address] [place] [address] Apr, Depressive disorder, not els ewhere classified 311 and Unspecified psychosis 298.9 [facility] [address] [facility] [id number] [address] [place] [address] Apr, Depression 311 and Hard of h earing 389.9 [facility] [address] [place] [id number] [address] [place] [address] Apr, Schizoaffective disorder 295 .70 [place] [address] [place] [id number] [address] [place] [address] 08 Apr, 2015 Major depressive disorder, r ecurrent episode, severe, specified as with psychotic behavior 296.34 [place] [address] [place] [id number] [address] [place] [address] Apr, Psychosis 298.9 and Depressi on 311 [place] [address] [address] [place] [id number] [address] [place] [address] Apr, Depressive disorder, not els ewhere classified 311 and Unspecified psychosis 298.9 [place] [address] [place] [id number] [address] [place] [address] Mar, Screening for cervical cance r V76.2 ; Well woman exam with routine gynecological exam V72.31 ; Colon cancer screening V76.51 ; Breast cancer screening V76.10 ; Irritable bowel syndrome 564.1 and Psychosis 298.9 [place] [address] [place] [id number] [address] [place] [address] Mar, Psychosis 298.9 [place] [address] [place] [id number] [address] [place] [address] Mar, Unspecified psychosis 298.9 [place] [address] [place] [id number] [address] [place] [address] Nov, [place] [address] [place] [id number] [address] [place] [address] Nov, [facility] [address] [id number] [address] [place] [address], [place] [address] Oct, [facility] [address] [id number] [address] [place] [address], [place] [address] Oct, [facility] [address] [id number] [address] [place] [address], [place] [address] Jul, [facility] [address] [id number] [address] [place] [address], [place] [address] Jul, [facility] [address] [id number] [address] [place] [address], [place] [address] May, [facility] [address] [id number] [address] [place] [address], [place] [address] Apr, [facility] [address] [id number] [address] [place] [address], [place] [address] Apr, [facility] [address] [id number] [address] [place] [address], [place] [address] Apr, [facility] [address] [id number] [address] [place] [address], [place] [address] 05 Apr, 2014 [facility] [address] [id number] [address] [place] [address], [place] [address] Apr, [facility] [address] [id number] [address] [place] [address], [place] [address] Mar, [facility] [address] [id number] [address] [place] [address], [place] [address] Mar, [facility] [address] [id number] [address] [place] [address], [place] [address] Mar, [facility] [address] [id number] [address] [place] [address], [place] [address] Mar, [facility] [address] [id number] [address] [place] [address], [place] [address] Mar, [facility] [address] [id number] [address] [place] [address], [place] [address] Mar, [facility] [address] [id number] [facility] [place] [place] [address] Mar, [facility] [address] [id number] [address] [place] [address], [place] [address] Mar, [facility] [address] [id number] [facility] [place] [place] [address] Mar, [facility] [address] [id number] [address] [place] [address], [place] [address] Mar, [facility] [address] [id number] [address] [place] [address], [place] [address] Jan, [facility] [address] [id number] [address] [place] [address], [place] [address] Jan, [facility] [address] [id number] [address] [place] [address], [place] [address] December, [facility] [address] [id number] [address] [place] [address], [place] [address] December, [facility] [address] [id number] [address] [place] [address], [place] [address] Nov, [facility] [address] [id number] [address] [place] [address], [place] [address] Nov, [facility] [address] [id number] [address] [place] [address], [place] [address] Sep, [facility] [address] [id number] [address] [place] [address], [place] [address] Sep, [facility] [address] [id number] [address] [place] [address], [place] [address] Sep, [facility] [address] [id number] [address] [place] [address], [place] [address] Sep, [facility] [address] [id number] [address] [place] [address], [place] [address] Jun, [facility] [address] [id number] [address] [place] [address], [place] [address] 14 Jun, 2013 [facility] [address] [id number] [address] [place] [address], [place] [address] Jun, [facility] [address] [id number] [address] [place] [address], [place] [address] Jun, [facility] [address] [id number] [address] [place] [address], [place] [address] May, [facility] [address] [id number] [address] [place] [address], [place] [address] May, [facility] [address] [id number] [address] [place] [address], [place] [address] Apr, [facility] [address] [id number] [address] [place] [address], [place] [address] Mar, [facility] [address] [id number] [address] [place] [address], [place] [address] Mar, [facility] [address] [id number] [address] [place] [address], [place] [address] Mar, [facility] [address] [id number] [address] [place] [address], [place] [address] Mar, [facility] [address] [id number] [address] [place] [address], [place] [address] Mar, [facility] [address] [id number] [address] [place] [address], [place] [address] Jan, [facility] [address] [id number] [address] [place] [address], [place] [address] Jan, [facility] [address] [id number] [address] [place] [address], [place] [address] Jan, [facility] [address] [id number] [address] [place] [address], [place] [address] December, [facility] [address] [id number] [address] [place] [address], [place] [address] Oct, [facility] [address] [id number] [address] [place] [address], [place] [address] Oct, [facility] [address] [id number] [address] [place] [address], [place] [address] Oct, [facility] [address] [id number] [address] [place] [address], [place] [address] Oct, [facility] [address] [id number] [address] [place] [address], [place] [address] Aug, [facility] [address] [id number] [address] [place] [address], [place] [address] Jun, [facility] [address] [id number] [address] [place] [address], [place] [address] Jun, [facility] [address] [id number] [address] [place] [address], [place] [address] Jun, [facility] [address] [id number] [address] [place] [address], [place] [address] Jun, [facility] [address] [id number] [address] [place] [address], [place] [address] May, [facility] [address] [id number] [address] [place] [address], [place] [address] Apr, [facility] [address] [id number] [address] [place] [address], [place] [address] Mar, [facility] [address] [id number] [address] [place] [address], [place] [address] Jan, [facility] [address] [id number] [address] [place] [address], [place] [address] Jan, [facility] [address] [id number] [address] [place] [address], [place] [address] December, [facility] [address] [id number] [address] [place] [address], [place] [address] December, [facility] [address] [id number] [address] [place] [address] December, [facility] [address] [id number] [address] [place] [address] December, [facility] [address] [id number] [address] [place] [address] Nov, [facility] [address] [id number] [address] [place] [address] Oct, [facility] [address] [id number] [address] [place] [address] Sep, [facility] [address] [id number] [address] [place] [address] Sep, [facility] [address] [id number] [address] [place] [address] Sep, [facility] [address] [id number] [address] [place] [address] Sep, [facility] [address] [id number] [address] [place] [address] Aug, [facility] [address] [id number] [address] [place] [address] Jun, [facility] [address] [id number] [address] [place] [address] May, [facility] [address] [id number] [address] [place] [address] Mar, [facility] [address] [id number] [address] [place] [address] Jun, [facility] [address] [id number] [address] [place] [address] May, [facility] [address] [facility] [id number] [address] [place] [address] May, IMMUNIZATIONS No Known Immunizations SOCIAL HISTORY Never Assessed REASON FOR VISIT Lab (walk-in) PLAN OF CARE VITAL SIGNS MEDICATIONS Unknown Medications RESULTS Name Result Date Reference Range TSH 2017-03-06 TSH 2.270 0.450-4.500 PROCEDURES Procedure Date Ordered Result Body Site LAB NOT BILLED BY [facility] Mar 06, 2017 PETROS, ROUTINE* Mar 06, 2017 INSTRUCTIONS MEDICATIONS ADMINISTERED No Known Medications MEDICAL (GENERAL) HISTORY Type Description Date Medical History depression Medical History hypothryroidism Medical History hyperlipidemia Medical History trauma: Stroke - with L side faci al drooping Surgical History hysterectomy Surgical History cholecystectomy Surgical History gall bladder removal Hospitalization History surgeries Hospitalization History stroke
--- OUTSIDE RECORDS SUMMARY | 2020-02-21 11:54 | XMS REPORT ---
Author Author Tarik POTTS Organization [facility] Address [address] [place] [address] Care Team Providers Care Nut Dehydrator Operator Name Role Phone ROMA POTTS Unavailable PROBLEMS Type Condition ICD9-CM Code DLQ90-IC Code Onset Dates Condition S tatus SNOMED Code Problem Osteopenia after menopause M81.0 Act mode 912468844 Problem Acquired hypothyroidism E03.9 Active 893455144 Problem Hearing loss of both ears H91.93 Acti ve 54573659 Problem Depression, major, 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 Active 84843385 Problem Pressure injury of left buttock, stage 2 L89.322 Active 517208388 Problem Hyperlipidemia, unspecified hyperlipidemia type E7 8.5 Active 75578446 Problem Pressure ulcer of left buttock, stage 3 L89.323 Active 290773034 Problem Gastroesophageal reflux disease without esophagitis K21.9 Active 473615198 Problem 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 Active 19500438 Problem Pure hypercholesterolemia E78.0 Acti ve 732237796 Problem Post menopausal syndrome N95.1 Activ e 352595286 Problem Decubitus ulcer of left leg, stage 2 L89.892 Active 073731906 Problem Falling R29.6 Active 987232107 Problem Pharyngoesophageal dysphagia R13.14 A ctive 73769217 ALLERGIES No Information ENCOUNTERS Encounter Location Date Diagnosis [facility] [address] [facility] [id number] [address] [place] [address] Jan, [facility] [address] [facility] [id number] [address] [place] [address] Jan, Hyperlipidemia, unspecified hyperlipidemia type E78.5 [facility] [address] [facility] [id number] [address] [place] [address] December, Depression, major, in remiss ion F32.5 [place] [address] [facility] [id number] [address] [place] [address] 21 Nov, 2019 Exercise counseling Z71.82 [place] [address] [facility] [id number] [address] [place] [address] 14 Nov, 2019 Exercise counseling Z71.82 [place] [address] [place] [id number] [address] [place] [address] 07 Nov, 2019 Exercise counseling Z71.82 [place] [address] [facility] [id number] [address] [place] [address] 31 Oct, 2019 Exercise counseling Z71.82 [place] [address] [place] [id number] [address] [place] [address] 24 Oct, 2019 Exercise counseling Z71.82 [place] [address] [place] [id number] [address] [place] [phone] 17 Oct, 2019 Exercise counseling Z71.82 [place] [address] [place] [id number] [address] [place] [address] 12 Oct, 2019 Exercise counseling Z71.82 [place] [address] [place] [id number] [address] [place] [address] 05 Oct, 2019 Exercise counseling Z71.82 [place] [address] [place] [id number] [address] [place] [address] 26 Sep, 2019 Falling R29.6 ; Pharyngoesop hageal dysphagia R13.14 and Pressure ulcer of left buttock, stage 3 L89.323 [place] [address] [place] [id number] [address] [place] [address] 20 Sep, 2019 Exercise counseling Z71.82 [place] [address] [place] [id number] [address] [place] [phone] 18 Sep, 2019 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 and Falling R29.6 [place] [address] [place] [id number] [address] [place] [phone] 13 Sep, 2019 [facility] [address] [facility] [id number] [address] [place] [address] Sep, Falling R29.6 [facility] [address] [id number] [address] [place] [address] Sep, [facility] [address] [facility] [id number] [address] [place] [address] Sep, Acquired hypothyroidism E03. 9 and Falling R29.6 [facility] [address] [facility] [id number] [address] [place] [address] Aug, Depression, major, in remiss ion F32.5 [facility] [address] [facility] [id number] [address] [place] [address] May, Depression, major, in remiss ion F32.5 [facility] [address] [facility] [id number] [address] [place] [address] May, Wound of left lower extremit y, subsequent encounter S81.802D [facility] [address] [facility] [id number] [address] [place] [address] May, Wound of left lower extremit y, subsequent encounter S81.802D [facility] [address] [facility] [id number] [address] [place] [address] May, Wound of left lower extremit y, subsequent encounter S81.802D [facility] [address] [facility] [id number] [address] [place] [address] May, Wound of left lower extremit y, subsequent encounter S81.802D [facility] [address] [facility] [id number] [address] [place] [address] May, [facility] [address] [facility] [id number] [address] [place] [address] May, Peripheral edema R60.9 ; Dec ubitus ulcer of left leg, stage 2 L89.892 ; Dry skin dermatitis L85.3 ; Encounter for immunization Z23 and Breast cancer screening Z12.39 [place] [address] [id number] [address] [place] [address] Mar, [facility] [address] [id number] [address] [place] [address] Jan, Depression, major, in remiss ion F32.5 and Morbid obesity E66.01 [place] [address] [facility] [id number] [address] [place] [address] Jan, [facility] Z[facility].00 ; Hyperlipidemia, unspecified hyperlipidemia type E78.5 ; Depression, major, 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 ; Gastroesophageal reflux disease without esophagitis K21.9 ; Acquired hypothyroidism E03.9 ; Hearing loss of both ears H91.93 ; Post menopausal syndrome N95.1 and Morbid obesity E66.01 [place] [address] [facility] [id number] [address] [place] [address] Jan, Hyperlipidemia, unspecified hyperlipidemia type E78.5 and Morbid obesity E66.01 [place] [address] [id number] [address] [place] [phone] Jan, [place] [address] [facility] [id number] [address] [place] [address] December, [place] [address] [facility] [id number] [address] [place] [address] December, [place] [address] [facility] [id number] [address] [place] [address] December, [place] [address] [facility] [id number] [address] [place] [address] December, Wound of left lower extremit y, subsequent encounter S81.802D [place] [address] [facility] [id number] [address] [place] [address] Nov, [place] [address] [facility] [id number] [address] [place] [address] Nov, Blister of left lower extrem ity without infection, initial encounter S80.822A and Morbid obesity E66.01 [facility] [address] [id number] [address] [place] [address] Nov, [facility] [address] [id number] [address] [place] [phone] Nov, [facility] [address] [id number] [address] [place] [phone] Nov, [facility] [address] [id number] [address] [place] [address] Nov, [facility] [address] [id number] [address] [place] [phone] Nov, [facility] [address] [id number] [address] [place] [phone] Nov, [facility] [address] [id number] [address] [place] [address] Oct, [facility] [address] [id number] [address] [place] [address] Oct, Depression, major, in remiss ion F32.5 [facility] [address] [id number] [address] [place] [phone] Oct, [facility] [address] [id number] [address] [place] [address] Oct, [facility] [address] [id number] [address] [place] [phone] Oct, [facility] [address] [id number] [address] [place] [address] Oct, Morbid obesity E66.01 and Pr essure injury of left buttock, stage 2 L89.322 [facility] [address] [id number] [address] [place] [address] Oct, [facility] [address] [id number] [address] [place] [address] Oct, [facility] [address] [facility] [id number] [address] [place] [address] Oct, [place] [address] [facility] [id number] [address] [place] [address] Oct, Pressure injury of other sit e, stage 2 L89.892 and Morbid obesity E66.01 [facility] [address] [facility] [id number] [address] [place] [address] Sep, Cellulitis of other specifie d site L03.818 and BMI 40.0-44.9, adult Z68.41 [place] [address] [facility] [id number] [address] [place] [address] 13 Sep, 2018 Scab R23.4 and BMI 40.0-44.9 , adult Z68.41 [place] [address] [facility] [id number] [address] [place] [address] Jun, Major depression in remissio n F32.5 [place] [address] [facility] [id number] [address] [place] [address] 27 Apr, 2018 [place] [address] [facility] [id number] [address] [place] [address] 24 Apr, 2018 Encounter for breast cancer screening other than mammogram Z12.39 ; Encounter for immunization Z23 and Colon cancer screening Z12.11 [place] [address] [facility] [id number] [address] [place] [address] Mar, Major depression in partial remission F32.4 and BMI 40.0-44.9, adult Z68.41 [place] [address] [facility] [id number] [address] [place] [address] Mar, [place] [address] [place] [id number] [address] [place] [address] Mar, Acquired hypothyroidism E03. 9 [place] [address] [facility] [id number] [address] [place] [address] Mar, Pain in left knee M25.562 ; Other chronic pain G89.29 and Gastroesophageal reflux disease without esophagitis K21.9 [facility] [address] [facility] [id number] [address] [place] [address] Jan, [facility] [address] [facility] [id number] [address] [place] [address] Jan, Acquired hypothyroidism E03. 9 [facility] [address] [facility] [id number] [address] [place] [address] Jan, [facility] [address] [place] [id number] [address] [place] [address] Jan, Acquired hypothyroidism E03. 9 [place] [address] [facility] [id number] [address] [place] [address] December, Major depressive disorder in full remission, unspecified whether recurrent F32.5 [place] [address] [place] [id number] [address] [place] [address] Nov, Acquired hypothyroidism E03. 9 [place] [address] [place] [id number] [address] [place] [address] Nov, Pure hypercholesterolemia E7 8.0 ; Peripheral edema R60.9 and Acquired hypothyroidism E03.9 [place] [address] [facility] [id number] [address] [place] [address] Oct, Mild acid reflux K21.9 [facility] [address] [facility] [id number] [address] [place] [address] Sep, Major depressive disorder, s glenny episode, in partial remission F32.4 and Long-term use of high-risk medication Z79.899 [place] [address] [facility] [id number] [address] [place] [address] Aug, Encounter for immunization Z 23 [place] [address] [facility] [id number] [address] [place] [address] Jul, [facility] [address] [place] [id number] [address] [place] [address] Jun, Medicare annual wellness vis it, initial Z00.00 ; BMI 40.0-44.9, adult Z68.41 and Encounter for immunization Z23 [place] [address] [id number] [address] [place] [address] 10 May, 2017 [facility] [address] [id number] [address] [place] [address] 10 May, 2017 Encounter for immunization Z 23 [facility] [address] [facility] [id number] [address] [place] [address] 10 May, 2017 Major depression in partial remission F32.4 [place] [address] [facility] [id number] [address] [place] [address] Apr, Hearing loss H91.90 ; Encoun ter for immunization Z23 and Encounter for screening mammogram for breast cancer Z12.31 [place] [address] [facility] [id number] [address] [place] [address] Mar, Acquired hypothyroidism E03. 9 [place] [address] [facility] [id number] [address] [place] [address] Jan, Acquired hypothyroidism E03. 9 [place] [address] [facility] [id number] [address] [place] [address] Jan, Acute midline low back pain without sciatica M54.5 [place] [address] [facility] [id number] [address] [place] [address] Jan, Peripheral edema R60.9 [place] [address] [facility] [id number] [address] [place] [address] Jan, Major depression in partial remission F32.4 [place] [address] [id number] [address] [place] [address] Jan, Localized edema R60.0 [place] [address] [facility] [id number] [address] [place] [address] Nov, Pure hypercholesterolemia E7 8.0 [place] [address] [facility] [id number] [address] [place] [address] Nov, Pure hypercholesterolemia E7 8.0 [facility] [address] [id number] [address] [place] [address] Nov, Peripheral edema R60.9 [facility] [address] [id number] [address] [place] [address] Oct, Major depression in partial remission F32.4 [facility] [address] [facility] [id number] [address] [place] [address] Aug, [facility] [address] [facility] [id number] [address] [place] [address] Aug, Elevated blood pressure read ing R03.0 [facility] [address] [facility] [id number] [address] [place] [address] Aug, [facility] [address] [facility] [id number] [address] [place] [address] Jun, Major depression in partial remission F32.4 [facility] [address] [facility] [id number] [address] [place] [address] Apr, Major depressive disorder, r ecurrent episode, mild F33.0 [place] [address] [facility] [id number] [address] [place] [address] Mar, Encounter for well woman exjoyce m with routine gynecological exam Z01.419 and Breast cancer screening Z12.39 [place] [address] [facility] [id number] [address] [place] [address] Jan, Hypothyroidism, unspecified type E03.9 [facility] [address] [facility] [id number] [address] [place] [address] Jan, Major depressive disorder, r ecurrent episode, mild F33.0 [facility] [address] [facility] [id number] [address] [place] [address] Jan, Abscess L02.91 [facility] [address] [facility] [id number] [address] [place] [address] Jan, Furuncle L02.92 [facility] [address] [facility] [id number] [address] [place] [address] 16 Jan, 2016 Major depression in partial remission F32.4 [facility] [address] [facility] [id number] [address] [place] [address] 13 Jan, 2016 Major depressive disorder, r ecurrent episode, mild F33.0 [facility] [address] [facility] [id number] [address] [place] [address] 17 Dec, 2015 Acute bacterial conjunctivit is of left eye H10.022 [place] [address] [facility] [id number] [address] [place] [address] December, Major depressive disorder, r ecurrent episode, mild F33.0 [place] [address] [facility] [id number] [address] [place] [address] Nov, [place] [address] [facility] [id number] [address] [place] [address] Nov, Major depressive disorder, r ecurrent episode, mild F33.0 [place] [address] [facility] [id number] [address] [place] [address] 18 Nov, 2015 Hearing loss H91.90 [place] [address] [facility] [id number] [address] [place] [address] 17 Oct, 2015 Major depression in partial remission F32.4 [place] [address] [facility] [id number] [address] [place] [address] 15 Oct, 2015 Pneumonia J18.9 [facility] [address] [facility] [id number] [address] [place] [address] 10 Oct, 2015 Influenza A J10.1 ; Fever, u nspecified R50.9 ; Conjunctivitis H10.9 and Cough R05 [place] [address] [facility] [id number] [address] [place] [address] 10 Oct, 2015 Major depressive disorder, r ecurrent episode, severe, with psychotic behavior F33.3 [place] [address] [facility] [id number] [address] [place] [address] Aug, [facility] [address] [facility] [id number] [address] [place] [address] Aug, Acquired hypothyroidism E03. 9 and Pure hypercholesterolemia E78.0 [facility] [address] [id number] [address] [place] [address] Aug, Major depressive disorder, r ecurrent episode, severe, with psychotic behavior F33.3 [facility] [address] [facility] [id number] [address] [place] [address] Jul, [facility] [address] [facility] [id number] [address] [place] [address] Jul, Major depressive disorder, r ecurrent episode, severe, with psychotic behavior F33.3 [facility] [address] [facility] [id number] [address] [place] [address] Jun, Major depressive disorder, r ecurrent episode, severe, with psychotic behavior F33.3 [facility] [address] [facility] [id number] [address] [place] [address] May, [facility] [address] [facility] [id number] [address] [place] [address] May, Major depressive disorder, r ecurrent episode, severe, with psychotic behavior F33.3 [facility] [address] [facility] [id number] [address] [place] [address] May, Major depressive disorder, r ecurrent episode, severe, with psychotic behavior F33.3 [facility] [address] [facility] [id number] [address] [place] [address] Apr, [facility] [address] [facility] [id number] [address] [place] [address] Apr, Depressive disorder, not els ewhere classified 311 and Unspecified psychosis 298.9 [facility] [address] [facility] [id number] [address] [place] [address] Apr, Depression 311 and Hard of h earing 389.9 [facility] [address] [facility] [id number] [address] [place] [address] 10 Apr, 2015 Schizoaffective disorder 295 .70 [facility] [address] [facility] [id number] [address] [place] [phone] 08 Apr, 2015 Major depressive disorder, r ecurrent episode, severe, specified as with psychotic behavior 296.34 [facility] [address] [facility] [id number] [address] [place] [address] Apr, Psychosis 298.9 and Depressi on 311 [facility] [address] [facility] [id number] [address] [place] [address] Apr, Depressive disorder, not els ewhere classified 311 and Unspecified psychosis 298.9 [facility] [address] [facility] [id number] [address] [place] [address] Mar, Screening for cervical cance r V76.2 ; Well woman exam with routine gynecological exam V72.31 ; Colon cancer screening V76.51 ; Breast cancer screening V76.10 ; Irritable bowel syndrome 564.1 and Psychosis 298.9 [facility] [address] [place] [id number] [address] [place] [address] Mar, Psychosis 298.9 [facility] [address] [facility] [id number] [address] [place] [address] Mar, Unspecified psychosis 298.9 [facility] [address] [facility] [id number] [address] [place] [address] Nov, [facility] [address] [facility] [id number] [address] [place] [phone] Nov, [facility] [address] [facility] [id number] [address] [place] [address] Oct, [facility] [address] [place] [id number] [address] [place] [address] Oct, [facility] [address] [place] [id number] [address] [place] [address] Jul, [facility] [address] [id number] [facility] [place] [address] Jul, [facility] [address] [id number] [address] [place] [address], [place] [address] May, [facility] [address] [id number] [facility] [place] [address] Apr, [facility] [address] [id number] [address] [place] [address], [place] [address] Apr, [facility] [address] [id number] [address] [place] [address], [place] [address] 05 Apr, 2014 [facility] [address] [id number] [address] [place] [address], [place] [address] 05 Apr, 2014 [facility] [address] [id number] [address] [place] [address], [place] [address] Apr, [facility] [address] [id number] [address] [place] [address], [place] [address] Mar, [facility] [address] [id number] [address] [place] [address], [place] [address] Mar, [facility] [address] [id number] [address] [place] [address], [place] [address] Mar, [facility] [address] [id number] [address] [place] [address], [place] [address] Mar, [facility] [address] [id number] [address] [place] [address], [place] [address] Mar, [facility] [address] [id number] [address] [place] [address], [place] [address] Mar, [facility] [address] [id number] [address] [place] [address], [place] [address] Mar, [facility] [address] [id number] [address] [place] [address], [place] [address] Mar, [facility] [address] [id number] [address] [place] [address], [place] [address] Mar, [facility] [address] [id number] [address] [place] [address], [place] [address] Mar, [facility] [address] [id number] [address] [place] [address], [place] [address] Jan, [facility] [address] [id number] [address] [place] [address], [place] [address] Jan, [facility] [address] [id number] [address] [place] [address], [place] [address] December, [facility] [address] [id number] [address] [place] [address], [place] [address] December, [facility] [address] [address] [id number] [address] [place] [address], [place] [address] Nov, [facility] [address] [id number] [address] [place] [address], [place] [address] Nov, [facility] [address] [id number] [address] [place] [address], [place] [address] Sep, [facility] [address] [id number] [address] [place] [address], [place] [address] Sep, [facility] [address] [id number] [address] [place] [address], [place] [address] Sep, [facility] [address] [id number] [address] [place] [address], [place] [address] Sep, [facility] [address] [id number] [address] [place] [address], [place] [address] Jun, [facility] [address] [id number] [address] [place] [address], [place] [address] Jun, [facility] [address] [id number] [address] [place] [address], [place] [address] Jun, [facility] [address] [id number] [address] [place] [address], [place] [address] Jun, [facility] [address] [id number] [address] [place] [address], [place] [address] 16 May, 2013 [facility] [address] [id number] [address] [place] [address], [place] [address] May, [facility] [address] [id number] [address] [place] [address], [place] [address] Apr, [facility] [address] [id number] [address] [place] [address], [place] [address] Mar, [facility] [address] [id number] [address] [place] [address], [place] [address] Mar, [facility] [address] [id number] [address] [place] [address], [place] [address] Mar, [facility] [address] [id number] [address] [place] [address], [place] [address] Mar, [facility] [address] [id number] [address] [place] [address], [place] [address] Mar, [facility] [address] [id number] [address] [place] [address], [place] [address] Jan, [facility] [address] [id number] [address] [place] [address], [place] [address] Jan, [facility] [address] [id number] [address] [place] [address], [place] [address] Jan, [facility] [address] [id number] [address] [place] [address], [place] [address] December, [facility] [address] [id number] [address] [place] [address], [place] [address] Oct, [facility] [address] [id number] [address] [place] [address], [place] [address] Oct, [facility] [address] [id number] [address] [place] [address], [place] [address] Oct, [facility] [address] [id number] [address] [place] [address], [place] [address] Oct, [facility] [address] [id number] [address] [place] [address], [place] [address] Aug, [facility] [address] [id number] [address] [place] [address], [place] [address] Jun, [facility] [address] [id number] [address] [place] [address], [place] [address] Jun, [facility] [address] [id number] [address] [place] [address], [place] [address] Jun, [facility] [address] [id number] [address] [place] [address], [place] [address] Jun, [facility] [address] [id number] [address] [place] [address], [place] [address] May, [facility] [address] [id number] [address] [place] [address], [place] [address] Apr, [facility] [address] [id number] [address] [place] [address], [place] [address] Mar, [facility] [address] [id number] [address] [place] [address], [place] [address] Jan, [facility] [address] [id number] [address] [place] [address], [place] [address] Jan, [facility] [address] [id number] [address] [place] [address], [place] [address] December, [facility] [address] [id number] [address] [place] [address], [place] [address] December, [facility] [address] [id number] [address] [place] [address], [place] [address] December, [facility] [address] [id number] [address] [place] [address], [place] [address] December, [facility] [address] [id number] [address] [place] [address], [place] [address] Nov, [facility] [address] [id number] [address] [place] [address], [place] [address] Oct, [facility] [address] [id number] [address] [place] [address] Sep, [facility] [address] [id number] [address] [place] [address] Sep, [facility] [address] [id number] [address] [place] [address] Sep, [facility] [address] [id number] [address] [place] [address] Sep, [facility] [address] [id number] [address] [place] [address] Aug, [facility] [address] [id number] [address] [place] [address] Jun, [facility] [address] [id number] [address] [place] [address] May, [facility] [address] [id number] [address] [place] [address] Mar, [facility] [address] [id number] [address] [place] [address] Jun, [facility] [address] [id number] [address] [place] [address] May, [facility] [address] [id number] [address] [place] [address] May, IMMUNIZATIONS No Known Immunizations SOCIAL HISTORY [...]
--- OUTSIDE RECORDS SUMMARY | 2020-02-21 11:55 | XMS REPORT | Continuity of Care Document ---
Demographics Preferred Language Unknown Marital Status Unknown Advent Affiliation Unknown Race Unknown Ethnic Group Unknown Author Organization Unknown Address Unknown Phone Unavailable Allergies Active Description Code Type Severity Reaction Onset Reported/Identified Relationship to Patient Clinical Status Yes Penicillins [id number] Drug Aller gy Moderate Uticaria 09/19/2011 Yes Penicillins Drug Allergy 09/20/2011 Yes Penicillins Drug Allergy N/A N/A 09/20/2011 Medications There is no data. Problems Date Dx Coded Attending Type Code Diagnosis Diagnosed By 02/07/2008 ORVILLE COOPER DO 296.21 Major Depressive Affective Disorder Single Episode Mild Degree 02/07/2008 296.21 Raine or Depressive Affective Disorder Single Episode Mild Degree 02/07/2008 ROMA POTTS APRN 296.21 Major Depressive Affective Disorder Single Episode Mil d Degree 02/07/2008 296.21 Raine or Depressive Affective Disorder Single Episode Mild Degree 02/07/2008 296.21 Raine or Depressive Affective Disorder Single Episode Mild Degree 02/07/2008 296.21 Raine or Depressive Affective Disorder Single Episode Mild Degree 02/07/2008 296.21 Raine or Depressive Affective Disorder Single Episode Mild Degree 02/07/2008 ROMA POTTS APRN 296.21 Major Depressive Affective Disorder Single Episode Mil d Degree 02/07/2008 ORVILLE COOPER DO 296.21 Major Depressive Affective Disorder Single Episode Mild Degree 02/07/2008 ORVILLE COOPER DO 296.21 Major Depressive Affective Disorder Single Episode Mild Degree 02/07/2008 ROMA POTTS APRN 296.21 Major Depressive Affective Disorder Single Episode Mil d Degree 02/07/2008 ROMA POTTS APRN 296.21 Major Depressive Affective Disorder Single Episode Mil d Degree 02/07/2008 296.21 Raine or Depressive Affective Disorder Single Episode Mild Degree 02/07/2008 ROMA POTTS APRN 296.21 Major Depressive Affective Disorder Single Episode Mil d Degree 04/21/2008 ORVILLE COOPER DO 296.25 Major Depressive Affective Disorder Single Episode In Partial Or Unspecified Remission 04/21/2008 296.25 Raine or Depressive Affective Disorder Single Episode In Partial Or Unspecified Remission 04/21/2008 ROMA POTTS APRN S 296.25 Major Depressive Affective Disorder Sing le Episode In Partial Or Unspecified Remission 04/21/2008 296.25 Raine or Depressive Affective Disorder Single Episode In Partial Or Unspecified Remission 04/21/2008 296.25 Raine or Depressive Affective Disorder Single Episode In Partial Or Unspecified Remission 04/21/2008 296.25 Raine or Depressive Affective Disorder Single Episode In Partial Or Unspecified Remission 04/21/2008 296.25 Raine or Depressive Affective Disorder Single Episode In Partial Or Unspecified Remission 04/21/2008 ROMA POTTS APRN S 296.25 Major Depressive Affective Disorder Sing le Episode In Partial Or Unspecified Remission 04/21/2008 MIGUEL COOPER DOA K 296.25 Major Depressive Affective Disorder Single Episode In Partial Or Unspecified Remission 04/21/2008 ORVILLE COOPER DO K 296.25 Major Depressive Affective Disorder Single Episode In Partial Or Unspecified Remission 04/21/2008 ROMA POTTS APRN S 296.25 Major Depressive Affective Disorder Sing le Episode In Partial Or Unspecified Remission 04/21/2008 ROMA POTTS APRN S 296.25 Major Depressive Affective Disorder Sing le Episode In Partial Or Unspecified Remission 04/21/2008 296.25 Raine or Depressive Affective Disorder Single Episode In Partial Or Unspecified Remission 04/21/2008 ROMA POTTS APRN S 296.25 Major Depressive Affective Disorder Sing le Episode In Partial Or Unspecified Remission 04/24/2008 ORVILLE COOPER DO K 244.9 HYPOTHYROIDISM 04/24/2008 244.9 HYPO THYROIDISM 04/24/2008 ROMA POTTS APRN S 244.9 HYPOTHYROIDISM 04/24/2008 244.9 HYPO THYROIDISM 04/24/2008 244.9 HYPO THYROIDISM 04/24/2008 244.9 HYPO THYROIDISM 04/24/2008 244.9 HYPO THYROIDISM 04/24/2008 ROMA POTTS APRN S 244.9 HYPOTHYROIDISM 04/24/2008 ORVILLE COOPER DO K 244.9 HYPOTHYROIDISM 04/24/2008 ORVILLE COOPER DO K 244.9 HYPOTHYROIDISM 04/24/2008 ROMA POTTS APRN S 244.9 HYPOTHYROIDISM 04/24/2008 ROMA POTTS APRN S 244.9 HYPOTHYROIDISM 04/24/2008 244.9 HYPO THYROIDISM 04/24/2008 ROMA POTTS APRN S 244.9 HYPOTHYROIDISM 10/05/2008 ORVILLE COOPER DO 296.30 MAJOR DEPRESSIVE AFFECTIVE DISORDER RECURRENT EPISODE UNSPECIFIED DEGREE 10/05/2008 296.30 RAINE OR DEPRESSIVE AFFECTIVE DISORDER RECURRENT EPISODE UNSPECIFIED DEGREE 10/05/2008 ROMA POTTS APRN S 296.30 MAJOR DEPRESSIVE AFFECTIVE DISORDER RECU RRENT EPISODE UNSPECIFIED DEGREE 10/05/2008 296.30 ARINE OR DEPRESSIVE AFFECTIVE DISORDER RECURRENT EPISODE UNSPECIFIED DEGREE 10/05/2008 296.30 RAINE OR DEPRESSIVE AFFECTIVE DISORDER RECURRENT EPISODE UNSPECIFIED DEGREE 10/05/2008 296.30 RAINE OR DEPRESSIVE AFFECTIVE DISORDER RECURRENT EPISODE UNSPECIFIED DEGREE 10/05/2008 296.30 RAINE OR DEPRESSIVE AFFECTIVE DISORDER RECURRENT EPISODE UNSPECIFIED DEGREE 10/05/2008 ROMA POTTS APRN S 296.30 MAJOR DEPRESSIVE AFFECTIVE DISORDER RECU RRENT EPISODE UNSPECIFIED DEGREE 10/05/2008 ORVILLE COOPER DO K 296.30 MAJOR DEPRESSIVE AFFECTIVE DISORDER RECURRENT EPISODE UNSPECIFIED DEGREE 10/05/2008 ORVILLE COOPER DO K 296.30 MAJOR DEPRESSIVE AFFECTIVE DISORDER RECURRENT EPISODE UNSPECIFIED DEGREE 10/05/2008 ROMA POTTS APRN S 296.30 MAJOR DEPRESSIVE AFFECTIVE DISORDER RECU RRENT EPISODE UNSPECIFIED DEGREE 10/05/2008 ROMA POTTS APRN S 296.30 MAJOR DEPRESSIVE AFFECTIVE DISORDER RECU RRENT EPISODE UNSPECIFIED DEGREE 10/05/2008 296.30 RAINE OR DEPRESSIVE AFFECTIVE DISORDER RECURRENT EPISODE UNSPECIFIED DEGREE 10/05/2008 ROMA POTTS APRN S 296.30 MAJOR DEPRESSIVE AFFECTIVE DISORDER RECU RRENT EPISODE UNSPECIFIED DEGREE 10/31/2008 ORVILLE COOPER DO K 389.05 CONDUCTIVE HEARING LOSS UNILATERAL 10/31/2008 ORVILLE COOPER DO 719.41 Pain In Joint Involving Shoulder Region 10/31/2008 389.05 CON DUCTIVE HEARING LOSS UNILATERAL 10/31/2008 719.41 Timothy n In Joint Involving Shoulder Region 10/31/2008 ROMA POTTS APRN S 389.05 CONDUCTIVE HEARING LOSS UNILATERAL 10/31/2008 ROMA POTTS APRN S 719.41 Pain In Joint Involving Shoulder Region 10/31/2008 389.05 CON DUCTIVE HEARING LOSS UNILATERAL 10/31/2008 719.41 Timothy n In Joint Involving Shoulder Region 10/31/2008 389.05 CON DUCTIVE HEARING LOSS UNILATERAL 10/31/2008 719.41 Timothy n In Joint Involving Shoulder Region 10/31/2008 389.05 CON DUCTIVE HEARING LOSS UNILATERAL 10/31/2008 719.41 Timothy n In Joint Involving Shoulder Region 10/31/2008 389.05 CON DUCTIVE HEARING LOSS UNILATERAL 10/31/2008 719.41 Timothy n In Joint Involving Shoulder Region 10/31/2008 ROMA POTTS APRN S 389.05 CONDUCTIVE HEARING LOSS UNILATERAL 10/31/2008 ROMA POTTS APRN S 719.41 Pain In Joint Involving Shoulder Region 10/31/2008 COOPER DO ORVILLE K 389.05 CONDUCTIVE HEARING LOSS UNILATERAL 10/31/2008 COOPER DO ORVILLE K 719.41 Pain In Joint Involving Shoulder Region 10/31/2008 KENNETH DOMIGUELA K 389.05 CONDUCTIVE HEARING LOSS UNILATERAL 10/31/2008 COOPER DO ORVILLE K 719.41 Pain In Joint Involving Shoulder Region 10/31/2008 ROMA POTTS APRN S 389.05 CONDUCTIVE HEARING LOSS UNILATERAL 10/31/2008 ROMA POTTS APRN S 719.41 Pain In Joint Involving Shoulder Region 10/31/2008 ROMA POTTS APRN S 389.05 CONDUCTIVE HEARING LOSS UNILATERAL 10/31/2008 ROMA POTTS APRN S 719.41 Pain In Joint Involving Shoulder Region 10/31/2008 389.05 CON DUCTIVE HEARING LOSS UNILATERAL 10/31/2008 719.41 Timothy n In Joint Involving Shoulder Region 10/31/2008 ROMA POTTS APRN S 389.05 CONDUCTIVE HEARING LOSS UNILATERAL 10/31/2008 ROMA POTTS APRN S 719.41 Pain In Joint Involving Shoulder Region 01/01/2009 MIGUEL COOPER DOA K V72.3 GYNECOLOGICAL EXAMINATION 01/01/2009 V72.3 GYNE COLOGICAL EXAMINATION 01/01/2009 ROMA POTTS APRN V72.3 GYNECOLOGICAL EXAMINATION 01/01/2009 V72.3 GYNE COLOGICAL EXAMINATION 01/01/2009 V72.3 GYNE COLOGICAL EXAMINATION 01/01/2009 V72.3 GYNE COLOGICAL EXAMINATION 01/01/2009 V72.3 GYNE COLOGICAL EXAMINATION 01/01/2009 DELROY ELECTROMECHANICAL TECHNOLOGIST, ROMA S V72.3 GYNECOLOGICAL EXAMINATION 01/01/2009 ORVILLE COOPER DO K V72.3 GYNECOLOGICAL EXAMINATION 01/01/2009 ORVILLE COOPER DO K V72.3 GYNECOLOGICAL EXAMINATION 01/01/2009 ROMA POTTS APRN S V72.3 GYNECOLOGICAL EXAMINATION 01/01/2009 ROMA POTTS APRN S V72.3 GYNECOLOGICAL EXAMINATION 01/01/2009 V72.3 GYNE COLOGICAL EXAMINATION 01/01/2009 ROMA POTTS APRN S V72.3 GYNECOLOGICAL EXAMINATION 01/08/2010 ORVILLE COOPER DO K V77.99 Screening For Other And Unspecified Endocrine Nutritional Metabolic And Immunity Disorders 01/08/2010 V77.99 Scr eening For Other And Unspecified Endocrine Nutritional Metabolic And Immunity Disorders 01/08/2010 ROMA POTTS APRN S V77.99 Screening For Other And Unspecified Endo crine Nutritional Metabolic And Immunity Disorders 01/08/2010 V77.99 Scr eening For Other And Unspecified Endocrine Nutritional Metabolic And Immunity Disorders 01/08/2010 V77.99 Scr eening For Other And Unspecified Endocrine Nutritional Metabolic And Immunity Disorders 01/08/2010 V77.99 Scr eening For Other And Unspecified Endocrine Nutritional Metabolic And Immunity Disorders 01/08/2010 V77.99 Scr eening For Other And Unspecified Endocrine Nutritional Metabolic And Immunity Disorders 01/08/2010 ROMA POTTS APRN S V77.99 Screening For Other And Unspecified Endo crine Nutritional Metabolic And Immunity Disorders 01/08/2010 ORVILLE COOPER DO K V77.99 Screening For Other And Unspecified Endocrine Nutritional Metabolic And Immunity Disorders 01/08/2010 ORVILLE COOPER DO K V77.99 Screening For Other And Unspecified Endocrine Nutritional Metabolic And Immunity Disorders 01/08/2010 ELVA POTTS APRNA S V77.99 Screening For Other And Unspecified Endo crine Nutritional Metabolic And Immunity Disorders 01/08/2010 ROMA POTTS APRN S V77.99 Screening For Other And Unspecified Endo crine Nutritional Metabolic And Immunity Disorders 01/08/2010 V77.99 Scr eening For Other And Unspecified Endocrine Nutritional Metabolic And Immunity Disorders 01/08/2010 ROMA POTTS APRN S V77.99 Screening For Other And Unspecified Endo crine Nutritional Metabolic And Immunity Disorders 01/07/2011 ORVILLE COOPER DO K 924.00 Contusion Of Thigh 01/07/2011 924.00 Con tusion Of Thigh 01/07/2011 ROMA POTTS APRN S 924.00 Contusion Of Thigh 01/07/2011 924.00 Con tusion Of Thigh 01/07/2011 924.00 Con tusion Of Thigh 01/07/2011 924.00 Con tusion Of Thigh 01/07/2011 924.00 Con tusion Of Thigh 01/07/2011 ROMA POTTS APRN S 924.00 Contusion Of Thigh 01/07/2011 COOPER ORVILLE HARDY K 924.00 Contusion Of Thigh 01/07/2011 ORVILLE COOPER DO 924.00 Contusion Of Thigh 01/07/2011 ROMA POTTS APRN S 924.00 Contusion Of Thigh 01/07/2011 ROMA POTTS APRN S 924.00 Contusion Of Thigh 01/07/2011 924.00 Con tusion Of Thigh 01/07/2011 ROMA POTTS APRN S 924.00 Contusion Of Thigh 01/27/2011 ORVILLE COOPER DO V72.31 Picc Nurse Exam, Routine 01/27/2011 V72.31 Picc Nurse Exam, Routine 01/27/2011 ROMA POTTS APRN S V72.31 Picc Nurse Exam, Routine 01/27/2011 V72.31 Picc Nurse Exam, Routine 01/27/2011 V72.31 Picc Nurse Exam, Routine 01/27/2011 V72.31 Picc Nurse Exam, Routine 01/27/2011 V72.31 Picc Nurse Exam, Routine 01/27/2011 ROMA POTTS APRN S V72.31 Picc Nurse Exam, Routine 01/27/2011 ORVILLE COOPER DO V72.31 Picc Nurse Exam, Routine 01/27/2011 ORVILLE COOPER DO V72.31 Picc Nurse Exam, Routine 01/27/2011 ROMA POTTS APRN S V72.31 Picc Nurse Exam, Routine 01/27/2011 ELVA POTTS APRNA S V72.31 Picc Nurse Exam, Routine 01/27/2011 V72.31 Picc Nurse Exam, Routine 01/27/2011 DELROY ELECTROMECHANICAL TECHNOLOGIST, ROMA S V72.31 Picc Nurse Exam, Routine 02/26/2011 ORVILLE COOPER DO K V76.10 Breast Screening Unspecified 02/26/2011 V76.10 Cheryl ast Screening Unspecified 02/26/2011 CHERYL POTTS APRNNDA S V76.10 Breast Screening Unspecified 02/26/2011 V76.10 Cheryl ast Screening Unspecified 02/26/2011 V76.10 Cheryl ast Screening Unspecified 02/26/2011 V76.10 Cheryl ast Screening Unspecified 02/26/2011 V76.10 Cheryl ast Screening Unspecified 02/26/2011 CHERYL POTTS APRNNDA S V76.10 Breast Screening Unspecified 02/26/2011 ORVILLE COOPER DO K V76.10 Breast Screening Unspecified 02/26/2011 ORVILLE COOPER DO K V76.10 Breast Screening Unspecified 02/26/2011 CHERYL POTTS APRNNDA S V76.10 Breast Screening Unspecified 02/26/2011 CHERYL POTTS APRNNDA S V76.10 Breast Screening Unspecified 02/26/2011 V76.10 Cheryl ast Screening Unspecified 02/26/2011 CHERYL POTTS APRNNDA S V76.10 Breast Screening Unspecified 09/11/2011 ORVILLE COOPER DO K 465.9 Upper Respiratory Infection 09/11/2011 465.9 Uppe r Respiratory Infection 09/11/2011 ROMA POTTS APRN S 465.9 Upper Respiratory Infection 09/11/2011 465.9 Uppe r Respiratory Infection 09/11/2011 465.9 Uppe r Respiratory Infection 09/11/2011 465.9 Uppe r Respiratory Infection 09/11/2011 465.9 Uppe r Respiratory Infection 09/11/2011 ROMA POTTS APRN S 465.9 Upper Respiratory Infection 09/11/2011 ORVILLE COOPER DO K 465.9 Upper Respiratory Infection 09/11/2011 ORVILLE COOPER DO K 465.9 Upper Respiratory Infection 09/11/2011 ROMA POTTS APRN S 465.9 Upper Respiratory Infection 09/11/2011 ROMA POTTS APRN S 465.9 Upper Respiratory Infection 09/11/2011 465.9 Uppe r Respiratory Infection 09/11/2011 ROMA POTTS APRN S 465.9 Upper Respiratory Infection 09/19/2011 Ot 708.9 URTI CARIA NOS 09/19/2011 Ot 782.1 NONS PECIF SKIN ERUPT NEC 09/20/2011 ORVILLE COOPER DO K 782.1 RASH 09/20/2011 782.1 RASH 09/20/2011 ROMA POTTS APRN S 782.1 RASH 09/20/2011 782.1 RASH 09/20/2011 782.1 RASH 09/20/2011 782.1 RASH 09/20/2011 782.1 RASH 09/20/2011 ROMA POTTS APRN S 782.1 RASH 09/20/2011 ORVILLE COOPER DO K 782.1 RASH 09/20/2011 ORVILLE COOPER DO K 782.1 RASH 09/20/2011 ROMA POTTS APRN S 782.1 RASH 09/20/2011 ROMA POTTS APRN S 782.1 RASH 09/20/2011 782.1 RASH 09/20/2011 ROMA POTTS APRN S 782.1 RASH 10/28/2011 ORVILLE COOPER DO 530.81 ESOPHAGEAL REFLUX 10/28/2011 ORVILLE COOPER DO 715.00 OSTEOARTHROSIS GENERALIZED INVOLVING UNSPECIFIED SITE 10/28/2011 530.81 ESO PHAGEAL REFLUX 10/28/2011 715.00 OST EOARTHROSIS GENERALIZED INVOLVING UNSPECIFIED SITE 10/28/2011 ROMA POTTS APRN S 530.81 ESOPHAGEAL REFLUX 10/28/2011 ROMA POTTS APRN S 715.00 OSTEOARTHROSIS GENERALIZED INVOLVING UNSPECIFIED SITE 10/28/2011 530.81 ESO PHAGEAL REFLUX 10/28/2011 715.00 OST EOARTHROSIS GENERALIZED INVOLVING UNSPECIFIED SITE 10/28/2011 530.81 ESO PHAGEAL REFLUX 10/28/2011 715.00 OST EOARTHROSIS GENERALIZED INVOLVING UNSPECIFIED SITE 10/28/2011 530.81 ESO PHAGEAL REFLUX 10/28/2011 715.00 OST EOARTHROSIS GENERALIZED INVOLVING UNSPECIFIED SITE 10/28/2011 530.81 ESO PHAGEAL REFLUX 10/28/2011 715.00 OST EOARTHROSIS GENERALIZED INVOLVING UNSPECIFIED SITE 10/28/2011 DELROY ELECTROMECHANICAL TECHNOLOGIST, ROMA S 530.81 ESOPHAGEAL REFLUX 10/28/2011 CHERYL POTTS APRNNDA S 715.00 OSTEOARTHROSIS GENERALIZED INVOLVING UNSPECIFIED SITE 10/28/2011 COOPER DO, ORVILLE K 530.81 ESOPHAGEAL REFLUX 10/28/2011 COOPER DO, ORVILLE K 715.00 OSTEOARTHROSIS GENERALIZED INVOLVING UNSPECIFIED SITE 10/28/2011 COOPER DO, ORVILLE K 530.81 ESOPHAGEAL REFLUX 10/28/2011 COOPER DO, ORVILLE K 715.00 OSTEOARTHROSIS GENERALIZED INVOLVING UNSPECIFIED SITE 10/28/[address] ROMA S 530.81 ESOPHAGEAL REFLUX 10/28/2011 CHERYL POTTS APRNNDA S 715.00 OSTEOARTHROSIS GENERALIZED INVOLVING UNSPECIFIED SITE 10/28/2011 CHERYL POTTS APRNNDA S 530.81 ESOPHAGEAL REFLUX 10/28/[address] ROMA S 715.00 OSTEOARTHROSIS GENERALIZED INVOLVING UNSPECIFIED SITE 10/28/2011 530.81 ESO PHAGEAL REFLUX 10/28/2011 715.00 OST EOARTHROSIS GENERALIZED INVOLVING UNSPECIFIED SITE 10/28/2011 CHERYL POTTS APRNNDA S 530.81 ESOPHAGEAL REFLUX 10/28/[address] ROMA S 715.00 OSTEOARTHROSIS GENERALIZED INVOLVING UNSPECIFIED SITE 12/02/2011 COOPER DO, ORVILLE K 782.3 EDEMA 12/02/2011 782.3 EDEMA 12/02/2011 CHERYL POTTS APRNNDA S 782.3 EDEMA 12/02/2011 782.3 EDEMA 12/02/2011 782.3 EDEMA 12/02/2011 782.3 EDEMA 12/02/2011 782.3 EDEMA 12/02/2011 CHERYL POTTS APRNNDA S 782.3 EDEMA 12/02/2011 COOPER DO, ORVILLE K 782.3 EDEMA 12/02/2011 COOPER DO, ORVILLE K 782.3 EDEMA 12/02/[address] ROMA S 782.3 EDEMA 12/02/[address] ROMA S 782.3 EDEMA 12/02/2011 782.3 EDEMA 12/02/2011 CHERYL POTTS APRNNDA S 782.3 EDEMA 12/17/2011 COOPER DO, ORVILLE K 726.73 CALCANEAL SPUR 12/17/2011 KENNETH DOMIGUELA K 729.5 PAIN IN LIMB 12/17/2011 726.73 ASHLEY CANEAL SPUR 12/17/2011 729.5 PAIN IN LIMB 12/17/2011 CHERYL POTTS APRNNDA S 726.73 CALCANEAL SPUR 12/17/2011 CHERYL POTTS APRNNDA S 729.5 PAIN IN LIMB 12/17/2011 726.73 ASHLEY CANEAL SPUR 12/17/2011 729.5 PAIN IN LIMB 12/17/2011 726.73 ASHLEY CANEAL SPUR 12/17/2011 729.5 PAIN IN LIMB 12/17/2011 726.73 ASHLEY CANEAL SPUR 12/17/2011 729.5 PAIN IN LIMB 12/17/2011 726.73 ASHLEY CANEAL SPUR 12/17/2011 729.5 PAIN IN LIMB 12/17/2011 ELVA POTTS APRNA S 726.73 CALCANEAL SPUR 12/17/2011 CHERYL POTTS APRNNDA S 729.5 PAIN IN LIMB 12/17/2011 KENNETH DOORVILLE K 726.73 CALCANEAL SPUR 12/17/2011 MIGUEL COOPER DOA K 729.5 PAIN IN LIMB 12/17/2011 MIGUEL COOPER DOA K 726.73 CALCANEAL SPUR 12/17/2011 MIGUEL COOPER DOA K 729.5 PAIN IN LIMB 12/17/2011 CHERYL POTTS APRNNDA S 726.73 CALCANEAL SPUR 12/17/2011 CHERYL POTTS APRNNDA S 729.5 PAIN IN LIMB 12/17/2011 CHERYL POTTS APRNNDA S 726.73 CALCANEAL SPUR 12/17/[address] ROMA S 729.5 PAIN IN LIMB 12/17/2011 726.73 ASHLEY CANEAL SPUR 12/17/2011 729.5 PAIN IN LIMB 12/17/2011 CHERYL POTTS APRNNDA S 726.73 CALCANEAL SPUR 12/17/[address] ROMA S 729.5 PAIN IN LIMB 02/18/2012 ORVILLE COOPER DO K V72.31 COOLER SERVICER EXAM, ROUTINE 02/18/2012 COOPER DO, ORVILLE K V76.10 BREAST SCREENING UNSPECIFIED 02/18/2012 V72.31 COOLER SERVICER EXAM, ROUTINE 02/18/2012 V76.10 CHERYL AST SCREENING UNSPECIFIED 02/18/2012 DELROY ELECTROMECHANICAL TECHNOLOGISTCHERYLROMA S V72.31 COOLER SERVICER EXAM, ROUTINE 02/18/2012 DELROY ELECTROMECHANICAL TECHNOLOGIST, ROMA S V76.10 BREAST SCREENING UNSPECIFIED 02/18/2012 V72.31 COOLER SERVICER EXAM, ROUTINE 02/18/2012 V76.10 CHERYL AST SCREENING UNSPECIFIED 02/18/2012 V72.31 COOLER SERVICER EXAM, ROUTINE 02/18/2012 V76.10 CHERYL AST SCREENING UNSPECIFIED 02/18/2012 V72.31 COOLER SERVICER EXAM, ROUTINE 02/18/2012 V76.10 CHERYL AST SCREENING UNSPECIFIED 02/18/2012 V72.31 COOLER SERVICER EXAM, ROUTINE 02/18/2012 V76.10 CHERYL AST SCREENING UNSPECIFIED 02/18/2012 DELROY ELECTROMECHANICAL TECHNOLOGIST ROMA S V72.31 COOLER SERVICER EXAM, ROUTINE 02/18/2012 DELROY ELECTROMECHANICAL TECHNOLOGIST, ROMA S V76.10 BREAST SCREENING UNSPECIFIED 02/18/2012 COOPER DO ORV[place] K V72.31 COOLER SERVICER EXAM, ROUTINE 02/18/2012 COOPER DO, ORVILLE K V76.10 BREAST SCREENING UNSPECIFIED 02/18/2012 COOPER DO, ORVILLE K V72.31 COOLER SERVICER EXAM, ROUTINE 02/18/2012 COOPER DO, ORVILLE K V76.10 BREAST SCREENING UNSPECIFIED 02/18/2012 DELROY ELECTROMECHANICAL TECHNOLOGIST, ROMA S V72.31 COOLER SERVICER EXAM, ROUTINE 02/18/2012 DELROY ELECTROMECHANICAL TECHNOLOGISTCHERYLROMA S V76.10 BREAST SCREENING UNSPECIFIED 02/18/2012 DELROY ELECTROMECHANICAL TECHNOLOGIST, ROMA S V72.31 COOLER SERVICER EXAM, ROUTINE 02/18/2012 DELROY ELECTROMECHANICAL TECHNOLOGIST, ROMA S V76.10 BREAST SCREENING UNSPECIFIED 02/18/2012 V72.31 COOLER SERVICER EXAM, ROUTINE 02/18/2012 V76.10 CHERYL AST SCREENING UNSPECIFIED 02/18/2012 DELROY ELECTROMECHANICAL TECHNOLOGIST, ROMA S V72.31 COOLER SERVICER EXAM, ROUTINE 02/18/2012 DELROY ELECTROMECHANICAL TECHNOLOGIST, ROMA S V76.10 BREAST SCREENING UNSPECIFIED 05/07/2012 COOPER DO ORV[place]LE K 729.4 PLANTAR FASCIITIS 05/07/2012 COOPER DO, ORVILLE K 754.50 CONGENITAL TALIPES VARUS 05/07/2012 729.4 PLAN TAR FASCIITIS 05/07/2012 754.50 CON GENITAL TALIPES VARUS 05/07/2012 CHERYL POTTS APRNNDA S 729.4 PLANTAR FASCIITIS 05/07/[address], ROMA S 754.50 CONGENITAL TALIPES VARUS 05/07/2012 729.4 PLAN TAR FASCIITIS 05/07/2012 754.50 CON GENITAL TALIPES VARUS 05/07/2012 729.4 PLAN TAR FASCIITIS 05/07/2012 754.50 CON GENITAL TALIPES VARUS 05/07/2012 729.4 PLAN TAR FASCIITIS 05/07/2012 754.50 CON GENITAL TALIPES VARUS 05/07/2012 729.4 PLAN TAR FASCIITIS 05/07/2012 754.50 CON GENITAL TALIPES VARUS 05/07/2012 CHERYL POTTS APRNNDA S 729.4 PLANTAR FASCIITIS 05/07/2012 CHERYL POTTS APRNNDA S 754.50 CONGENITAL TALIPES VARUS 05/07/2012 COOPER DO, ORVILLE K 729.4 PLANTAR FASCIITIS 05/07/2012 COOPER DO, ORVILLE K 754.50 CONGENITAL TALIPES VARUS 05/07/2012 COOPER DO, ORVILLE K 729.4 PLANTAR FASCIITIS 05/07/2012 COOPER DO, ORVILLE K 754.50 CONGENITAL TALIPES VARUS 05/07/[address], ROMA S 729.4 PLANTAR FASCIITIS 05/07/2012 CHERYL POTTS APRNNDA S 754.50 CONGENITAL TALIPES VARUS 05/07/[address] ROMA S 729.4 PLANTAR FASCIITIS 05/07/[address], ROMA S 754.50 CONGENITAL TALIPES VARUS 05/07/2012 729.4 PLAN TAR FASCIITIS 05/07/2012 754.50 CON GENITAL TALIPES VARUS 05/07/2012 DELROY ELECTROMECHANICAL TECHNOLOGIST, ROMA S 729.4 PLANTAR FASCIITIS 05/07/[address] ROMA S 754.50 CONGENITAL TALIPES VARUS 06/16/2012 COOPER DO, ORVILLE K 726.10 TENDONITIS SHOULDER 06/16/2012 726.10 TEN DONITIS SHOULDER 06/16/2012 ROMA POTTS APRN 726.10 TENDONITIS SHOULDER 06/16/2012 726.10 TEN DONITIS SHOULDER 06/16/2012 726.10 TEN DONITIS SHOULDER 06/16/2012 726.10 TEN DONITIS SHOULDER 06/16/2012 726.10 TEN DONITIS SHOULDER 06/16/2012 ROMA POTTS APRN S 726.10 TENDONITIS SHOULDER 06/16/2012 ORVILLE COOPER DO 726.10 TENDONITIS SHOULDER 06/16/2012 ORVILLE COOPER DO 726.10 TENDONITIS SHOULDER 06/16/2012 ROMA POTTS APRN 726.10 TENDONITIS SHOULDER 06/16/2012 ROMA POTTS APRN S 726.10 TENDONITIS SHOULDER 06/16/2012 726.10 TEN DONITIS SHOULDER 06/16/2012 ROMA POTTS APRN S 726.10 TENDONITIS SHOULDER 10/11/2012 ROMA POTTS APRN 719.41 PAIN- SHOULDER 10/11/2012 ROMA POTTS APRN V77.91 SCREENING FOR LIPOID DISORDERS 10/11/2012 719.41 TIMOTHY N- SHOULDER 10/11/2012 V77.91 SCR EENING FOR LIPOID DISORDERS 10/11/2012 719.41 TIMOTHY N- SHOULDER 10/11/2012 V77.91 SCR EENING FOR LIPOID DISORDERS 10/11/2012 719.41 TIMOTHY N- SHOULDER 10/11/2012 V77.91 SCR EENING FOR LIPOID DISORDERS 10/11/2012 719.41 TIMOTHY N- SHOULDER 10/11/2012 V77.91 SCR EENING FOR LIPOID DISORDERS 10/11/2012 ROMA POTTS APRN 719.41 PAIN- SHOULDER 10/11/2012 ROMA POTTS APRN V77.91 SCREENING FOR LIPOID DISORDERS 10/11/2012 ORVILLE COOPER DO 719.41 PAIN- SHOULDER 10/11/2012 ORVILLE COOPER DO V77.91 SCREENING FOR LIPOID DISORDERS 10/11/2012 ORVILLE COOPER DO 719.41 PAIN- SHOULDER 10/11/2012 COOPER DO, ORVILLE K V77.91 SCREENING FOR LIPOID DISORDERS 10/11/2012 CHERYL POTTS APRNNDA S 719.41 PAIN- SHOULDER 10/11/2012 CHERYL POTTS APRNNDA S V77.91 SCREENING FOR LIPOID DISORDERS 10/11/2012 CHERYL POTTS APRNNDA S 719.41 PAIN- SHOULDER 10/11/2012 CHERYL POTTS APRNNDA S V77.91 SCREENING FOR LIPOID DISORDERS 10/11/2012 719.41 TIMOTHY N- SHOULDER 10/11/2012 V77.91 SCR EENING FOR LIPOID DISORDERS 10/11/2012 DELROY ELECTROMECHANICAL TECHNOLOGIST, ROMA S 719.41 PAIN- SHOULDER 10/11/2012 CHERYL POTTS APRNNDA S V77.91 SCREENING FOR LIPOID DISORDERS 01/24/2013 V65.49 OTH ER SPECIFIED COUNSELING 01/24/2013 V76.51 COL ON CANCER SCREENING 01/24/2013 V65.49 OTH ER SPECIFIED COUNSELING 01/24/2013 V76.51 COL ON CANCER SCREENING 01/24/2013 CHERYL POTTS APRNNDA S V65.49 OTHER SPECIFIED COUNSELING 01/24/2013 CHERYL POTTS APRNNDA S V76.51 COLON CANCER SCREENING 01/24/2013 COOPER DO ORVILLE K V65.49 OTHER SPECIFIED COUNSELING 01/24/2013 COOPER DO, ORVILLE K V76.51 COLON CANCER SCREENING 01/24/2013 COOPER DO, ORVILLE K V65.49 OTHER SPECIFIED COUNSELING 01/24/2013 COOPER DO, [place]VIL[place] K V76.51 COLON CANCER SCREENING 01/24/2013 CHERYL POTTS APRNNDA S V65.49 OTHER SPECIFIED COUNSELING 01/24/[address] ROMA S V76.51 COLON CANCER SCREENING 01/24/2013 CHERYL POTTS APRNNDA S V65.49 OTHER SPECIFIED COUNSELING 01/24/2013 CHERYL POTTS APRNNDA S V76.51 COLON CANCER SCREENING 01/24/2013 V65.49 OTH ER SPECIFIED COUNSELING 01/24/2013 V76.51 COL ON CANCER SCREENING 01/24/2013 CHERYL POTTS APRNNDA S V65.49 OTHER SPECIFIED COUNSELING 01/24/2013 ROMA POTTS APRN S V76.51 COLON CANCER SCREENING 06/08/2013 ORVILLE COOPER DO K V04.81 FLU SHOT 06/08/2013 ORVILLE COOPER DO K V04.81 FLU SHOT 06/08/2013 ROMA POTTS APRN S V04.81 FLU SHOT 06/08/2013 ROMA POTTS APRN S V04.81 FLU SHOT 06/08/2013 V04.81 FLU SHOT 06/08/2013 ROMA POTTS APRN S V04.81 FLU SHOT 09/29/2013 ORVILLE COOPER DO K 726.10 DISORDERS OF [place] AND TENDONS IN SHOULDER REGION UNSPECIFIED 09/29/2013 ROMA POTTS APRN S 726.10 DISORDERS OF [place] AND TENDONS IN SHOULDER REGION UNS PECIFIED 09/29/2013 ROMA POTTS APRN S 726.10 DISORDERS OF [place] AND TENDONS IN SHOULDER REGION UNS PECIFIED 09/29/2013 726.10 DIS ORDERS OF [place] AND TENDONS IN SHOULDER REGION UNSPECIFIED 09/29/2013 ROMA POTTS APRN S 726.10 DISORDERS OF [place] AND TENDONS IN SHOULDER REGION UNS PECIFIED 03/23/2014 ROMA POTTS APRN S V76.10 BREAST CANCER SCREENING 03/23/2014 ROMA POTTS APRN S V76.10 BREAST CANCER SCREENING 03/23/2014 V76.10 CHERYL AST CANCER SCREENING 03/23/2014 ROMA POTTS APRN S V76.10 BREAST CANCER SCREENING 03/30/2014 ROMA POTTS APRN S V72.31 COOLER SERVICER EXAM, ROUTINE 03/30/2014 ROMA POTTS APRN S V73.81 HPV SCREENING 03/30/2014 ROMA POTTS APRN S V76.2 CERVICAL CANCER SCREENING (PAP SMEAR) 03/30/2014 V72.31 COOLER SERVICER EXAM, ROUTINE 03/30/2014 V73.81 HPV SCREENING 03/30/2014 V76.2 CERV ICAL CANCER SCREENING (PAP SMEAR) 03/30/2014 ROMA POTTS APRN S V72.31 COOLER SERVICER EXAM, ROUTINE 03/30/2014 ROMA POTTS APRN S V73.81 HPV SCREENING 03/30/2014 ROMA POTTS APRN S V76.2 CERVICAL CANCER SCREENING (PAP SMEAR) 05/04/2015 ROMA POTTS IN SHOP SERVICE TECHNICIAN Ot V76.12 04/22/2016 Ot V76.12 OTH SCREEN MAMMO- MALIGN NEOPLASM OF ROSHNI 04/22/2016 Ot V76.12 OTH SCREEN MAMMO- MALIGN NEOPLASM OF [place] 04/22/2016 ARIELLA ANDUJAR ELECTROMECHANICAL TECHNOLOGIST Ot V76.12 OTH SCREEN MAMMO-MALIGN NEOPLASM OF [place] 04/22/2016 ROMA POTTS IN SHOP SERVICE TECHNICIAN Ot V76.12 OTH SCREEN MAMMO-MALIGN NEOPLASM OF [place] 04/22/2016 ROMA POTTS IN SHOP SERVICE TECHNICIAN Ot V76.12 OTH SCREEN MAMMO-MALIGN NEOPLASM OF [place] 04/23/2016 STANLEY PORTER IN SHOP SERVICE TECHNICIAN Ot Z12.31 ENCNTR SCREEN MAMMOGRAM FOR MALIGNANT NE 04/24/2016 STANLEY PORTER IN SHOP SERVICE TECHNICIAN Ot Z12.31 ENCNTR SCREEN MAMMOGRAM FOR MALIGNANT NE 05/02/2016 STANLEY PORTER IN SHOP SERVICE TECHNICIAN Ot Z12.31 ENCNTR SCREEN MAMMOGRAM FOR MALIGNANT NE 07/15/2016 STANLEY PORTER IN SHOP SERVICE TECHNICIAN Ot Z12.31 ENCNTR SCREEN MAMMOGRAM FOR MALIGNANT NE 04/16/2017 ROMA POTTS IN SHOP SERVICE TECHNICIAN Ot Z12.31 ENCNTR SCREEN MAMMOGRAM FOR MALIGNANT NE 04/23/2017 ROMA POTTS IN SHOP SERVICE TECHNICIAN Ot Z12.31 ENCNTR SCREEN MAMMOGRAM FOR MALIGNANT NE 04/29/2017 ROMA POTTS IN SHOP SERVICE TECHNICIAN Ot Z12.31 ENCNTR SCREEN MAMMOGRAM FOR MALIGNANT NE 05/14/2017 ROMA POTTS IN SHOP SERVICE TECHNICIAN Ot Z12.31 ENCNTR SCREEN MAMMOGRAM FOR MALIGNANT NE 05/26/2017 ROMA POTTS IN SHOP SERVICE TECHNICIAN Ot Z12.31 ENCNTR SCREEN MAMMOGRAM FOR MALIGNANT NE 04/30/2018 ARIELLA ANDUJAR ELECTROMECHANICAL TECHNOLOGIST Ot V76.12 OTH SCREEN MAMMO-MALIGN NEOPLASM OF ROSH[place] 04/30/2018 ROMA POTTS IN SHOP SERVICE TECHNICIAN Ot V76.12 OTH SCREEN MAMMO-MALIGN NEOPLASM OF ROSH[place] 04/30/2018 DELROY, ROMA IN SHOP SERVICE TECHNICIAN Ot V76.12 OTH SCREEN MAMMO-MALIGN NEOPLASM OF [place] 04/30/2018 STANLEY PORTER IN SHOP SERVICE TECHNICIAN Ot Z12.31 ENCNTR SCREEN MAMMOGRAM FOR MALIGNANT NE 04/30/2018 ROMA POTTS IN SHOP SERVICE TECHNICIAN Ot Z12.31 ENCNTR SCREEN MAMMOGRAM FOR MALIGNANT NE 04/30/2018 ROMA POTTS IN SHOP SERVICE TECHNICIAN Ot Z12.31 ENCNTR SCREEN MAMMOGRAM FOR MALIGNANT NE 05/01/2018 ROMA POTTS IN SHOP SERVICE TECHNICIAN Ot Z12.31 ENCNTR SCREEN MAMMOGRAM FOR MALIGNANT NE 05/06/2018 ELVA POTTSA IN SHOP SERVICE TECHNICIAN Ot Z12.31 ENCNTR SCREEN MAMMOGRAM FOR MALIGNANT NE 05/24/2018 ROMA POTTS IN SHOP SERVICE TECHNICIAN Ot Z12.31 ENCNTR SCREEN MAMMOGRAM FOR MALIGNANT NE 05/31/2018 ELVA POTTSA IN SHOP SERVICE TECHNICIAN Ot Z12.31 ENCNTR SCREEN MAMMOGRAM FOR MALIGNANT NE 12/02/2018 ROMA POTTS IN SHOP SERVICE TECHNICIAN Ot V76.12 OTH SCREEN MAMMO-MALIGN NEOPLASM OF [place] 12/02/2018 ROMA POTTS IN SHOP SERVICE TECHNICIAN Ot V76.12 OTH SCREEN MAMMO-MALIGN NEOPLASM OF [place] 12/02/2018 STANLEY PORTER IN SHOP SERVICE TECHNICIAN Ot Z12.31 ENCNTR SCREEN MAMMOGRAM FOR MALIGNANT NE 12/02/2018 ROMA POTTS IN SHOP SERVICE TECHNICIAN Ot Z12.31 ENCNTR SCREEN MAMMOGRAM FOR MALIGNANT NE 12/02/2018 ROMA POTTS IN SHOP SERVICE TECHNICIAN Ot Z12.31 ENCNTR SCREEN MAMMOGRAM FOR MALIGNANT NE 12/06/2018 JAY HOOPER ELECTROMECHANICAL TECHNOLOGIST Ot I87.2 VENOUS INSUFFICIENCY (CHRONIC) (PERIPHER 12/06/2018 JAY HOOPER ELECTROMECHANICAL TECHNOLOGIST Ot 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, STAGE 3 12/06/2018 JAY HOOPER APRN Ot L97.222 NON-PRESSURE CHRONIC ULCER OF LEFT CALF 12/10/2018 JAY HOOPER ELECTROMECHANICAL TECHNOLOGIST Ot I87.2 VENOUS INSUFFICIENCY (CHRONIC) (PERIPHER 12/10/2018 JAY HOOPER ELECTROMECHANICAL TECHNOLOGIST Ot 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, STAGE 3 12/10/2018 JAY HOOPER ELECTROMECHANICAL TECHNOLOGIST Ot L97.221 NON-PRS CHRONIC ULCER OF LEFT CALF LIMIT 12/21/2018 SANDIE, JAY R ELECTROMECHANICAL TECHNOLOGIST Ot I87.2 VENOUS INSUFFICIENCY (CHRONIC) (PERIPHER 12/21/2018 SANDIE, JAY R ELECTROMECHANICAL TECHNOLOGIST Ot 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, STAGE 3 12/21/2018 SANDIE, JAY R ELECTROMECHANICAL TECHNOLOGIST Ot L97.221 NON-PRS CHRONIC ULCER OF LEFT CALF LIMIT 12/23/2018 SANDIE, JAY R ELECTROMECHANICAL TECHNOLOGIST Ot I87.2 VENOUS INSUFFICIENCY (CHRONIC) (PERIPHER 12/23/2018 SANDIE JAY R ELECTROMECHANICAL TECHNOLOGIST Ot 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, STAGE 3 12/23/2018 SANDIE JAY R ELECTROMECHANICAL TECHNOLOGIST Ot L97.222 NON-PRESSURE CHRONIC ULCER OF LEFT CALF 12/27/2018 SANDIE, JAY R ELECTROMECHANICAL TECHNOLOGIST Ot I87.2 VENOUS INSUFFICIENCY (CHRONIC) (PERIPHER 12/27/2018 SANDIE, JAY R ELECTROMECHANICAL TECHNOLOGIST Ot 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, STAGE 3 12/27/2018 SANDIE JAY R ELECTROMECHANICAL TECHNOLOGIST Ot L97.221 NON-PRS CHRONIC ULCER OF LEFT CALF LIMIT 12/31/2018 SANDIE, JAY R ELECTROMECHANICAL TECHNOLOGIST Ot I87.2 VENOUS INSUFFICIENCY (CHRONIC) (PERIPHER 12/31/2018 SANDIE, JAY R ELECTROMECHANICAL TECHNOLOGIST Ot 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, STAGE 3 12/31/2018 SANDIE JAY R ELECTROMECHANICAL TECHNOLOGIST Ot L97.221 NON-PRS CHRONIC ULCER OF LEFT CALF LIMIT 12/31/2018 SANDIE, JAY R ELECTROMECHANICAL TECHNOLOGIST Ot I87.2 VENOUS INSUFFICIENCY (CHRONIC) (PERIPHER 12/31/2018 SANDIE JAY R ELECTROMECHANICAL TECHNOLOGIST Ot 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, STAGE 3 12/31/2018 SANDIE JAY R ELECTROMECHANICAL TECHNOLOGIST Ot L97.221 NON-PRS CHRONIC ULCER OF LEFT CALF LIMIT 12/31/2018 SANDIE, JAY R ELECTROMECHANICAL TECHNOLOGIST Ot I87.2 VENOUS INSUFFICIENCY (CHRONIC) (PERIPHER 12/31/2018 SANDIE, JAY R ELECTROMECHANICAL TECHNOLOGIST Ot 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, STAGE 3 12/31/2018 SANDIE, JAY R ELECTROMECHANICAL TECHNOLOGIST Ot L97.221 NON-PRS CHRONIC ULCER OF LEFT CALF LIMIT 01/07/2019 SANDIE, JAY R ELECTROMECHANICAL TECHNOLOGIST Ot I87.2 VENOUS INSUFFICIENCY (CHRONIC) (PERIPHER 01/07/2019 SANDIE JAY R ELECTROMECHANICAL TECHNOLOGIST Ot 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, STAGE 3 01/07/2019 SANDIE JAY R ELECTROMECHANICAL TECHNOLOGIST Ot L97.221 NON-PRS CHRONIC ULCER OF LEFT CALF LIMIT 01/10/2019 SANDIE, JAY R ELECTROMECHANICAL TECHNOLOGIST Ot I87.2 VENOUS INSUFFICIENCY (CHRONIC) (PERIPHER 01/10/2019 SANDIE, JAY R ELECTROMECHANICAL TECHNOLOGIST Ot 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, STAGE 3 01/10/2019 SANDIE, JAY R ELECTROMECHANICAL TECHNOLOGIST Ot L97.222 NON-PRESSURE CHRONIC ULCER OF LEFT CALF 01/11/2019 SANDIE, JAY R ELECTROMECHANICAL TECHNOLOGIST Ot I87.2 VENOUS INSUFFICIENCY (CHRONIC) (PERIPHER 01/11/2019 SANDIE, JAY R ELECTROMECHANICAL TECHNOLOGIST Ot 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, STAGE 3 01/11/2019 SANDIE, JAY R ELECTROMECHANICAL TECHNOLOGIST Ot L97.221 NON-PRS CHRONIC ULCER OF LEFT CALF LIMIT 01/12/2019 SANDIE, JAY R ELECTROMECHANICAL TECHNOLOGIST Ot I87.2 VENOUS INSUFFICIENCY (CHRONIC) (PERIPHER 01/12/2019 SANDIE JAY R ELECTROMECHANICAL TECHNOLOGIST Ot 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, STAGE 3 01/12/2019 SANDIE, JAY R ELECTROMECHANICAL TECHNOLOGIST Ot L97.221 NON-PRS CHRONIC ULCER OF LEFT CALF LIMIT 01/24/2019 SANDIE, JAY R ELECTROMECHANICAL TECHNOLOGIST Ot I87.2 VENOUS INSUFFICIENCY (CHRONIC) (PERIPHER 01/24/2019 SANDIE, JAY R ELECTROMECHANICAL TECHNOLOGIST Ot 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, STAGE 3 01/24/2019 SANDIE, JAY R ELECTROMECHANICAL TECHNOLOGIST Ot L97.221 NON-PRS CHRONIC ULCER OF LEFT CALF LIMIT 01/24/2019 SANDIE, JYA R ELECTROMECHANICAL TECHNOLOGIST Ot I87.2 VENOUS INSUFFICIENCY (CHRONIC) (PERIPHER 01/24/2019 SANDIE, JAY R ELECTROMECHANICAL TECHNOLOGIST Ot 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, STAGE 3 01/24/2019 SANDIE, JAY R ELECTROMECHANICAL TECHNOLOGIST Ot L97.221 NON-PRS CHRONIC ULCER OF LEFT CALF LIMIT 01/27/2019 SANDIE, JAY R ELECTROMECHANICAL TECHNOLOGIST Ot I87.2 VENOUS INSUFFICIENCY (CHRONIC) (PERIPHER 01/27/2019 SANDIE, JAY R ELECTROMECHANICAL TECHNOLOGIST Ot 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, STAGE 3 01/27/2019 SANDIE, JAY R ELECTROMECHANICAL TECHNOLOGIST Ot L97.221 NON-PRS CHRONIC ULCER OF LEFT CALF LIMIT 02/23/2019 DELROY, ROMA IN SHOP SERVICE TECHNICIAN Ot N95.1 MENOPAUSAL AND FEMALE CLIMACTERIC STATES 03/21/2019 ROMA POTTS IN SHOP SERVICE TECHNICIAN Ot N95.1 MENOPAUSAL AND FEMALE CLIMACTERIC STATES 03/24/2019 ROMA POTTS IN SHOP SERVICE TECHNICIAN Ot M85.89 OTH DISRD OF BONE DENSITY AND STRUCTURE, 03/24/2019 ROMA POTTS IN SHOP SERVICE TECHNICIAN Ot N95.1 MENOPAUSAL AND FEMALE CLIMACTERIC STATES 03/24/2019 ROMA POTTS IN SHOP SERVICE TECHNICIAN Ot Z13.820 ENCOUNTER FOR SCREENING FOR OSTEOPOROSIS 04/11/2019 ROMA POTTS IN SHOP SERVICE TECHNICIAN Ot M85.89 OTH DISRD OF BONE DENSITY AND STRUCTURE, 04/11/2019 ROMA POTTS IN SHOP SERVICE TECHNICIAN Ot N95.1 MENOPAUSAL AND FEMALE CLIMACTERIC STATES 04/11/2019 ROMA POTTS IN SHOP SERVICE TECHNICIAN Ot Z13.820 ENCOUNTER FOR SCREENING FOR OSTEOPOROSIS 04/14/2019 ROMA POTTS IN SHOP SERVICE TECHNICIAN Ot M85.89 OTH DISRD OF BONE DENSITY AND STRUCTURE, 04/14/2019 ROMA POTTS IN SHOP SERVICE TECHNICIAN Ot N95.1 MENOPAUSAL AND FEMALE CLIMACTERIC STATES 04/14/2019 ROMA POTTS IN SHOP SERVICE TECHNICIAN Ot Z13.820 ENCOUNTER FOR SCREENING FOR OSTEOPOROSIS 05/09/2019 ROMA POTTS IN SHOP SERVICE TECHNICIAN Ot Z12.31 ENCNTR SCREEN MAMMOGRAM FOR MALIGNANT NE 05/17/2019 ROMA POTTS IN SHOP SERVICE TECHNICIAN Ot Z12.31 ENCNTR SCREEN MAMMOGRAM FOR MALIGNANT NE 08/01/2019 ROMA POTTS IN SHOP SERVICE TECHNICIAN Ot Z12.31 ENCNTR SCREEN MAMMOGRAM FOR MALIGNANT NE 09/23/2019 ROMA POTTSP Ot F2 8 OTH PSYCH DISORDER NOT DUE TO A SUB OR K 09/23/2019 ROMA POTTS IN SHOP SERVICE TECHNICIAN Ot R29.6 REPEATED FALLS 10/07/2019 ROMA POTTS IN SHOP SERVICE TECHNICIAN Ot F2 8 OTH PSYCH DISORDER NOT DUE TO A SUB OR K 10/07/2019 ROMA POTTS IN SHOP SERVICE TECHNICIAN Ot R29.6 REPEATED FALLS Procedures Code Description [place] [address] ROUT INE VENIPUNCTURE 10/11/2012 75882 XRAY SHOULDER RIGHT COMP 2 VIEWS 10/11/2012 24617 TSH 10/11/2012 83609 LIPI D PANEL 10/11/201290869 JOIN T INJECTION- INTERMEDIATE JOINT 12/23/2012 22683 MAMM OGRAM, SCREENING 01/24/2013 07164 ROUT INE VENIPUNCTURE 03/30/2013 44516 CMP 03/30/2013 13414 LIPI D PANEL 03/30/2013 2524716 GF R CALC (RESULT ONLY) 03/30/2013 33149 TSH 03/30/2013 G0008 FLU ADMINISTRATION (MEDICARE ONLY) 06/08/201327182 JOIN T INJECTION- INTERMEDIATE JOINT 09/29/2013 20977 ROUT INE VENIPUNCTURE 03/24/2014 49483 CBC 03/24/2014 0882412 GF R CALC (RESULT ONLY) 03/24/2014 86746 CMP 03/24/2014 59905 LIPI D PANEL 03/24/2014 98264 TSH 03/24/2014 Q0091 PAP SMEAR OBTAIN SMEAR 03/30/2014 10507 HEMOCCULT 03/30/2014 51645 MAMM OGRAM, SCREENING 04/05/2014 60749 PAP SMEAR 04/06/2014 Results Test Result Range Pap Lb, rfx HPV ASCU - 04/02/16 10:00 DIAGNOSIS: Comment Specimen adequacy: Comment Clinician provided ICD10: Comment Performed by: Comment . . Note: Comment . Comment Genital Culture, Routine - 04/02/16 10:0 0 Genital Culture, Routine Note Lipid Panel - 11/28/16 08:32 Cholesterol, Total 139 mg/dL 100-199 Triglycerides 57 mg/dL 0-149 HDL Cholesterol 34 mg/dL >39 VLDL Cholesterol Ashley 11 mg/dL 5-40 LDL Cholesterol Calc 94 mg/dL 0-99 TSH - 03/06/17 08:33 TSH 2.270 uIU/mL 0.450-4.500 TSH - 11/09/17 08:31 TSH 4.77 mIU/L 0.40-4.50 TSH - 01/12/18 08:07 TSH 0.03 mIU/L 0.40-4.50 CULTURE, ANAEROBIC AND AEROBIC - 9 09:39 CULTURE, ANAEROBIC BACTERIA W/GRAM STAIN SEE NOTE NRG CULTURE, AEROBIC BACTERIA SEE NOTE NRG Bacteria identification in isolate by an aerobe culture - 12/02/18 09:21 Bacteria identification in isolate by anaerobe culture NOANA NRG Gram stain microscopy - 12/02/18 09:21 Gram stain microscopy 12-03-18, 0605. NRG Bacteria identification in wound by cult ure - 12/02/18 09:21 Bacteria identification in wound by culture [id number] NRG FREE TEXT EXTERNAL SUSCEPTIBILITY REPORTED 9, 1105. NRG QUANTITY OF GROWTH FEW NRG FREE TEXT ENTRY 2 METHICILLIN-SENSITIVE STAPH AL US NRG RML Sensitivity Panel - 12/02/18 09:21 Oxacillin susceptibility test by minimum inhibitory co ncentration 0.5 NRG Clindamycin susceptibility test by minimum inhibitory concentration <= NRG Erythromycin susceptibility test by minimum inhibitory concentration <= NRG Trimethoprim/sulfamethoxazole susceptibi lity test by minimum inhibitoryconcentration <= NRG Vancomycin susceptibility test by minimum inhibitory c oncentration 1 NRG Levofloxacin susceptibility test by minimum inhibitory concentration <= NRG Rifampin susceptibility test by minimum inhibitory con centration <= NRG Cefazolin susceptibility test by minimum inhibitory co ncentration <= NRG Linezolid susceptibility test by minimum inhibitory co ncentration 2 NRG Penicillin G susceptibility test by minimum inhibitory concentration 1 NRG Moxifloxacin susceptibility test by minimum inhibitory concentration <= NRG Minocycline susc BHUPENDRA <= NRG LIPID PANEL - 01/26/19 10:40 CHOLESTEROL, TOTAL 154 mg/dL <200 HDL CHOLESTEROL 38 mg/dL >50 TRIGLYCERIDES 67 mg/dL <150 LDL-CHOLESTEROL 101 mg/dL (calc) NRG CHOL/HDLC RATIO 4.1 (calc) <5.0 NON HDL CHOLESTEROL 116 mg/dL (calc) <13 0 CMP - 01/26/19 10:40 GLUCOSE 94 mg/dL 65-99 UREA NITROGEN (BUN) 12 mg/dL 7-25 CREATININE 0.85 mg/dL 0.50-0.99 eGFR NON-AFR. TONGAN 70 mL/min/1.73m2 > OR = 60 eGFR 82 mL/min/1.73m2 > OR = 60 BUN/CREATININE RATIO NOT APPLICABLE (calc) 6-22 SODIUM 139 mmol/L 135-146 POTASSIUM 4.1 mmol/L 3.5-5.3 CHLORIDE 102 mmol/L 98-110 CARBON DIOXIDE 33 mmol/L 20-32 CALCIUM 8.9 mg/dL 8.6-10.4 PROTEIN, TOTAL 7.0 g/dL 6.1-8.1 ALBUMIN 3.7 g/dL 3.6-5.1 GLOBULIN 3.3 g/dL (calc) 1.9-3.7 ALBUMIN/GLOBULIN RATIO 1.1 (calc) 1.0-2. 5 BILIRUBIN, TOTAL 0.5 mg/dL 0.2-1.2 ALKALINE PHOSPHATASE 87 U/L 33-130 AST 21 U/L 10-35 ALT 9 U/L 6-29 TSH - 09/07/19 11:25 TSH 4.06 mIU/L 0.40-4.50 Serum or plasma creatinine measurement ( mass/volume) - 09/21/19 06:43 Serum or plasma creatinine measurement (mass/volume) 0.81 mg/dL 0.60-1.30 LIPID PANEL - 01/11/20 13:29 CHOLESTEROL, TOTAL 158 mg/dL <200 HDL CHOLESTEROL 36 mg/dL > OR = 50 TRIGLYCERIDES 81 mg/dL <150 LDL-CHOLESTEROL 105 mg/dL (calc) NRG CHOL/HDLC RATIO 4.4 (calc) <5.0 NON HDL CHOLESTEROL 122 mg/dL (calc) <13 0 CMP - 01/11/20 13:29 GLUCOSE 86 mg/dL 65-99 UREA NITROGEN (BUN) 13 mg/dL 7-25 CREATININE 0.73 mg/dL 0.50-0.99 eGFR NON-AFR. TONGAN 84 mL/min/1.73m2 > OR = 60 eGFR 97 mL/min/1.73m2 > OR = 60 BUN/CREATININE RATIO NOT APPLICABLE (calc) 6-22 SODIUM 139 mmol/L 135-146 POTASSIUM 4.1 mmol/L 3.5-5.3 CHLORIDE 100 mmol/L 98-110 CARBON DIOXIDE 31 mmol/L 20-32 CALCIUM 9.4 mg/dL 8.6-10.4 PROTEIN, TOTAL 7.1 g/dL 6.1-8.1 ALBUMIN 3.7 g/dL 3.6-5.1 GLOBULIN 3.4 g/dL (calc) 1.9-3.7 ALBUMIN/GLOBULIN RATIO 1.1 (calc) 1.0-2. 5 BILIRUBIN, TOTAL 0.5 mg/dL 0.2-1.2 ALKALINE PHOSPHATASE 106 U/L 37-153 AST 19 U/L 10-35 ALT 9 U/L 6-29 Coronavirus SARS-CoV-2 SO 2019 - 07/16/2 0 08:00 Coronavirus Ab [Units/volume] in Serum Negative Negative Encounters ACCT No. Visit Date/Time Discharge Status Pt. Type Provider Facility Loc./Unit Complaint [id number] 11/29/2016 08:35:00 Document Registration [id number] 04/07/2016 13:05:00 Document Registration [id number] 03/07/2017 07:05:00 Document Registration [id number] 02/16/2020 07:18:00 10:34:00 DIS Outpatient KRAIG PALOMO DO [facility] PREOP EGD [id number] 02/07/2020 15:45:00 23:59:59 CLS Preadmit KRAIG PALOMO DO [facility] ENDO DYSPHAGIA. [id number] 09/21/2019 06:33:00 23:59:59 CLS Outpatient ROMA POTTS [facility] RAD FALLING [id number] 05/13/2019 07:41:00 23:59:59 CLS Outpatient ROMA POTTS IN SHOP SERVICE TECHNICIAN [facility] RAD SCREENING [id number] 03/22/2019 10:55:00 23:59:59 CLS Outpatient ROMA POTTS [facility] RAD POST MENOPAUSAL SYNDRO ME [id number] 12/30/2018 10:59:00 019 23:59:59 CLS Outpatient JAY HOOPER ELECTROMECHANICAL TECHNOLOGIST [facility] WOUNDCARE [id number] 12/23/2018 10:46:00 019 23:59:59 CLS Outpatient JAY HOOPER ELECTROMECHANICAL TECHNOLOGIST [facility] WOUNDCARE [id number] 12/16/2018 08:04:00 019 23:59:59 CLS Outpatient JAY HOOPER ELECTROMECHANICAL TECHNOLOGIST [facility] WOUNDCARE [id number] 12/09/2018 08:14:00 23:59:59 CLS Outpatient JAY HOOPER ELECTROMECHANICAL TECHNOLOGIST [facility] WOUNDCARE [id number] 12/02/2018 08:02:00 019 23:59:59 CLS Outpatient SHENG HOOPERN Quin ELECTROMECHANICAL TECHNOLOGIST [facility] WOUNDCARE [id number] 04/30/2018 09:52:00 018 23:59:59 CLS Outpatient ROMA POTTS IN SHOP SERVICE TECHNICIAN [facility] RAD SCREENING [id number] 04/23/2017 09:24:00 017 23:59:59 CLS Outpatient ROMA POTTS IN SHOP SERVICE TECHNICIAN [facility] RAD Z12.31 [id number] 04/22/2016 09:20:00 016 23:59:59 CLS Outpatient CHARLOTTE STANLEY A IN SHOP SERVICE TECHNICIAN [facility] RAD SCREENING [id number] 04/19/2015 10:28:00 015 23:59:59 CLS Outpatient ROMA POTTS IN SHOP SERVICE TECHNICIAN [facility] RAD SCREENING [id number] 04/05/2014 10:50:00 014 23:59:59 CLS Outpatient ROMA POTTS IN SHOP SERVICE TECHNICIAN [facility] RAD SCREENING [id number] 03/02/2013 11:01:00 013 23:59:59 CLS Outpatient PRATIMAARIELLA BIGGS ELECTROMECHANICAL TECHNOLOGIST [facility] RAD SCREENING [id number] 02/26/2012 13:35:00 Document Registration [id number] 09/19/2011 08:36:00 Document Registration [id number] 03/17/2011 08:44:00 Document Registration [id number] 10/17/2014 10:18:00 10/17/2014 23:59: 59 CLS Outpatient ROMA POTTS APRN [id number] 05/31/2014 06:50:00 05/31/2014 23:59: 59 CLS Outpatient [id number] 03/30/2014 12:47:00 03/30/2014 23:59: 59 CLS Outpatient ROMA POTTS APRN [id number] 03/24/2014 07:56:00 03/24/2014 23:59: 59 CLS Outpatient ROMA POTTS APRN [id number] 09/29/2013 13:47:00 09/29/2013 23:59: 59 CLS Outpatient ORVILLE COOPER DO [id number] 06/08/2013 15:54:00 06/08/2013 23:59: 59 CLS Outpatient ORVILLE COOPER DO [id number] 03/30/2013 08:42:00 03/30/2013 23:59: 59 CLS Outpatient ROMA POTTS APRN [id number] 10/11/2012 08:46:00 10/11/2012 23:59: 59 CLS Outpatient ROMA POTTS APRN [id number] 10/11/2012 08:46:00 10/11/2012 23:59: 59 CLS Outpatient [id number] 06/18/2012 09:21:00 06/18/2012 23:59:5 9 CLS Outpatient ORVILLE COOPER DO [id number] 06/18/2012 09:21:00 06/18/2012 23:59: 59 CLS Outpatient [id number] 03/24/2013 13:00:00 Document Registration [id number] 01/24/2013 10:19:00 Document Registration [id number] 12/23/2012 13:38:00 Document Registration [id number] 04/05/2016 13:05:00 Document Registration [id number] 01/11/2020 13:00:00 01/11/2020 23:59:5 9 CLS Outpatient ROMA POTTS APRN [facility] [id number] 01/11/2020 13:00:00 Document Registration [id number] 09/07/2019 11:00:00 Document Registration [id number] 01/26/2019 10:20:00 Document Registration [id number] 12/01/2018 08:20:00 Document Registration [id number] 01/12/2018 08:00:00 Document Registration [id number] 11/09/2017 08:20:00 Document Registration
--- OUTSIDE RECORDS SUMMARY | 2020-02-21 11:55 | XMS REPORT ---
Author Author Tarik WAYNE [facility] eClinicalWorks Address Unknown Phone Unavailable Care Team Providers Care Agronomy Teacher Name Role Phone MICHAELA WAYNE Unavailable Allergies [...] patient &/family, 45 minutes, established patient CPT-4 60318 Jul 09, 2015 Results No Known Results Summary Purpose eClinicalWorks Submission
--- OUTSIDE RECORDS SUMMARY | 2020-02-21 11:55 | XMS REPORT ---
Author Author Tarik POTTS Organization [facility] Address [address] [place] [address] Care Team Providers Care Horses Or Mules Teamster Name Role Phone ROMA POTTS Unavailable PROBLEMS Type Condition ICD9-CM Code [id number] Code Onset Dates Condition S tatus SNOMED Code Problem Pure hypercholesterolemia E78.0 Acti ve 785568153 Problem Major depression in partial remission F32.4 Active 88301139 Problem Major depressive disorder, recurrent episode, mild F33.0 Active 791629966 Problem Hearing loss of both ears H91.93 Acti ve 00681340 Problem Acquired hypothyroidism E03.9 Active 489637668 Problem Mild acid reflux K21.9 Active 235 367501 Problem Medicare welcome exam Z00.00 Active 895023877 Problem Calcaneal spur, unspecified laterality M77.30 Active 47869074 Problem Talipes varus, 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 10101534 Problem Hearing loss H91.90 Active 9576608 1 Problem Edema, unspecified type R60.9 Active 109642202 ALLERGIES Substance Reaction Event Type Date Status Penicillins Unknown Non Drug Allergy Jan, Active ENCOUNTERS Encounter Location Date Diagnosis [place] [address] [facility] [id number] [address] [place] [address] December, [facility] [address] [facility] [id number] [address] [place] [address] Nov, [place] [address] [facility] [id number] [address] [place] [address] Oct, Mild acid reflux K21.9 [facility] [address] [facility] [id number] [address] [place] [address] 08 Sep, 2017 Major depressive disorder, s glenny episode, in partial remission F32.4 and Long-term use of high-risk medication Z79.899 [facility] [address] [id number] [address] [place] [address] Aug, Encounter for immunization Z 23 [facility] [address] [id number] [address] [place] [address] Jul, [facility] [address] [facility] [id number] [address] [place] [address] Jun, Medicare annual wellness vis it, initial Z00.00 ; BMI 40.0-44.9, adult Z68.41 and Encounter for immunization Z23 [facility] [address] [id number] [address] [place] [address] May, [facility] [address] [facility] [id number] [address] [place] [address] May, Encounter for immunization Z 23 [facility] [address] [id number] [address] [place] [address] May, Major depression in partial remission F32.4 [facility] [address] [id number] [address] [place] [address] Apr, Hearing loss H91.90 ; Encoun ter for immunization Z23 and Encounter for screening mammogram for breast cancer Z12.31 [facility] [address] [id number] [address] [place] [address] Mar, Acquired hypothyroidism E03. 9 [facility] [address] [facility] [id number] [address] [place] [address] Jan, Acquired hypothyroidism E03. 9 [facility] [address] [facility] [id number] [address] [place] [address] Jan, Acute midline low back pain without sciatica M54.5 [facility] [address] [id number] [address] [place] [address] Jan, Peripheral edema R60.9 [facility] [address] [facility] [id number] [address] [place] [address] Jan, Major depression in partial remission F32.4 [facility] [address] [id number] [address] [place] [address] Jan, Localized edema R60.0 [facility] [address] [id number] [address] [place] [address] Nov, Pure hypercholesterolemia E7 8.0 [facility] [address] [id number] [address] [place] [address] Nov, Pure hypercholesterolemia E7 8.0 [facility] [address] [id number] [address] [place] [address] Nov, Peripheral edema R60.9 [facility] [address] [id number] [address] [place] [address] Oct, Major depression in partial remission F32.4 [facility] [address] [id number] [address] [place] [address] Aug, [facility] [address] [id number] [address] [place] [address] Aug, Elevated blood pressure read ing R03.0 [facility] [address] [id number] [address] [place] [address] Aug, [facility] [address] [id number] [address] [place] [address] Jun, Major depression in partial remission F32.4 [facility] [address] [id number] [address] [place] [address] Apr, Major depressive disorder, r ecurrent episode, mild F33.0 [facility] [address] [id number] [address] [place] [address] Mar, Encounter for well woman exa m with routine gynecological exam Z01.419 and Breast cancer screening Z12.39 [facility] [address] [id number] [address] [place] [address] Jan, 2016 Hypothyroidism, unspecified type E03.9 [facility] [address] [id number] [address] [place] [address] Jan, Major depressive disorder, r ecurrent episode, mild F33.0 [facility] [address] [id number] [address] [place] [address] 30 Jan, 2016 Abscess L02.91 [facility] [address] [id number] [address] [place] [address] Jan, Furuncle L02.92 [facility] [address] [id number] [address] [place] [address] 16 Jan, 2016 Major depression in partial remission F32.4 [facility] [address] [id number] [address] [place] [address] 13 Jan, 2016 Major depressive disorder, r ecurrent episode, mild F33.[address] [facility] [address] [id number] [address] [place] [address] December, Acute bacterial conjunctivit is of left eye H10.022 [facility] [address] [id number] [address] [place] [address] December, Major depressive disorder, r ecurrent episode, mild F33.0 [facility] [address] [id number] [address] [place] [address] Nov, [facility] [address] [id number] [address] [place] [address] Nov, Major depressive disorder, r ecurrent episode, mild F33.0 [facility] [address] [id number] [address] [place] [address] 18 Nov, 2015 Hearing loss H91.90 [facility] [address] [id number] [address] [place] [address] 17 Oct, 2015 Major depression in partial remission F32.4 [facility] [address] [id number] [address] [place] [address] 15 Oct, 2015 Pneumonia J18.[address] [facility] [address] [id number] [address] [place] [address] Oct, Influenza A J10.1 ; Fever, u nspecified R50.9 ; Conjunctivitis H10.9 and Cough R05 [place] [address] [place] [id number] [address] [place] [address] 10 Oct, 2015 Major depressive disorder, r ecurrent episode, severe, with psychotic behavior F33.3 [place] [id number] [place] [address] Aug, [place] [address] [address] Aug, Acquired hypothyroidism E03. 9 and Pure hypercholesterolemia E78.0 [place] [address] [place] [id number] [address] [place] [address] Aug, Major depressive disorder, r ecurrent episode, severe, with psychotic behavior F33.3 [place] [id number] [place] [address] Jul, [place] [address] [place] [id number] [address] [place] [address] Jul, Major depressive disorder, r ecurrent episode, severe, with psychotic behavior F33.3 [place] [address] [place] [id number] [address] [place] [address] Jun, Major depressive disorder, r ecurrent episode, severe, with psychotic behavior F33.3 [place] [address] [place] [id number] [address] [place] [address] May, [place] [address] [place] [id number] [address] [place] [address] May, Major depressive disorder, r ecurrent episode, severe, with psychotic behavior F33.3 [place] [address] [place] [id number] [address] [place] [address] May, Major depressive disorder, r ecurrent episode, severe, with psychotic behavior F33.3 [place] [address] [place] [id number] [address] [place] [address] Apr, [facility] [address] [facility] [id number] [address] [place] [address] Apr, Depressive disorder, not els ewhere classified 311 and Unspecified psychosis 298.9 [facility] [address] [facility] [id number] [address] [place] [address] Apr, Depression 311 and Hard of h earing 389.9 [facility] [address] [facility] [id number] [address] [place] [address] Apr, Schizoaffective disorder 295 .70 [place] [address] [facility] [id number] [address] [place] [address] 08 Apr, 2015 Major depressive disorder, r ecurrent episode, severe, specified as with psychotic behavior 296.34 [place] [address] [place] [id number] [address] [place] [address] Apr, Psychosis 298.9 and Depressi on 311 [place] [address] [place] [id number] [address] [place] [address] Apr, Depressive disorder, not els ewhere classified 311 and Unspecified psychosis 298.9 [place] [address] [place] [id number] [address] [place] [address] Mar, Screening for cervical cance r V76.2 ; Well woman exam with routine gynecological exam V72.31 ; Colon cancer screening V76.51 ; Breast cancer screening V76.10 ; Irritable bowel syndrome 564.1 and Psychosis 298.9 [facility] [address] [facility] [id number] [address] [place] [address] Mar, Psychosis 298.9 [place] [address] [facility] [id number] [address] [place] [address] Mar, Unspecified psychosis 298.9 [place] [address] [facility] [id number] [address] [place] [address] Nov, [place] [address] [place] [id number] [address] [place] [address] Nov, [facility] [address] [id number] [address] [place] [address], [place] [address] Oct, [facility] [address] [id number] [address] [place] [address], [place] [address] Oct, [facility] [address] [id number] [address] [place] [address], [place] [address] Jul, [facility] [address] [id number] [address] [place] [address], [place] [address] Jul, [facility] [address] [id number] [address] [place] [address], [place] [address] May, [facility] [address] [id number] [address] [place] [address], [place] [address] Apr, [facility] [address] [id number] [address] [place] [address], [place] [address] Apr, [facility] [address] [id number] [address] [place] [address], [place] [address] Apr, [facility] [address] [id number] [address] [place] [address], [place] [address] Apr, [facility] [address] [id number] [address] [place] [address], [place] [address] Apr, [facility] [address] [id number] [address] [place] [address], [place] [address] Mar, [facility] [address] [id number] [address] [place] [address], [place] [address] Mar, [facility] [address] [id number] [address] [place] [address], [place] [address] Mar, [facility] [address] [id number] [address] [place] [address], [place] [address] Mar, [facility] [address] [id number] [address] [place] [address], [place] [address] Mar, [facility] [address] [id number] [facility] [place] [address] Mar, [facility] [address] [id number] [address] [place] [address], [place] [address] Mar, [facility] [address] [id number] [address] [place] [address], [place] [address] Mar, [facility] [address] [id number] [address] [place] [address], [place] [address] Mar, [facility] [address] [id number] [address] [place] [address], [place] [address] Mar, [facility] [address] [id number] [address] [place] [address], [place] [address] Jan, [facility] [address] [id number] [address] [place] [address], [place] [address] Jan, [facility] [address] [id number] [address] [place] [address], [place] [address] December, [facility] [address] [id number] [address] [place] [address], [place] [address] December, [facility] [address] [id number] [address] [place] [address], [place] [address] Nov, [facility] [address] [id number] [address] [place] [address], [place] [address] Nov, [facility] [address] [id number] [address] [place] [address], [place] [address] Sep, [facility] [address] [id number] [address] [place] [address], [place] [address] Sep, [facility] [address] [id number] [address] [place] [address], [place] [address] Sep, [facility] [address] [id number] [address] [place] [address], [place] [address] Sep, [facility] [address] [id number] [address] [place] [address], [place] [address] Jun, [facility] [address] [id number] [address] [place] [address], [place] [address] 14 Jun, 2013 [facility] [address] [id number] [address] [place] [address], [place] [address] Jun, [facility] [address] [id number] [address] [place] [address], [place] [address] Jun, [facility] [address] [id number] [address] [place] [address], [place] [address] May, [facility] [address] [id number] [address] [place] [address], [place] [address] May, [facility] [address] [id number] [address] [place] [address], [place] [address] Apr, [facility] [address] [id number] [address] [place] [address], [place] [address] Mar, [facility] [address] [id number] [address] [place] [address], [place] [address] Mar, [facility] [address] [id number] [address] [place] [address], [place] [address] Mar, [facility] [address] [id number] [address] [place] [address], [place] [address] Mar, [facility] [address] [id number] [address] [place] [address], [place] [address] Mar, [facility] [address] [id number] [address] [place] [address] Jan, [facility] [address] [id number] [address] [place] [address], [place] [address] Jan, [facility] [address] [id number] [address] [place] [address], [place] [address] Jan, [facility] [address] [id number] [address] [place] [address], [place] [address] December, [facility] [address] [id number] [address] [place] [address], [place] [address] 13 Oct, 2012 [facility] [address] [id number] [address] [place] [address], [place] [address] 12 Oct, 2012 [facility] [address] [id number] [address] [place] [address], [place] [address] Oct, [facility] [address] [id number] [address] [place] [address], [place] [address] Oct, [facility] [address] [id number] [address] [place] [address], [place] [address] Aug, [facility] [address] [id number] [address] [place] [address], [place] [address] Jun, [facility] [address] [id number] [address] [place] [address], [place] [address] Jun, [facility] [address] [id number] [address] [place] [address], [place] [address] Jun, [facility] [address] [id number] [address] [place] [address], [place] [address] Jun, [facility] [address] [id number] [address] [place] [address], [place] [address] 05 May, 2012 [facility] [address] [id number] [address] [place] [address], [place] [address] Apr, [facility] [address] [id number] [address] [place] [address], [place] [address] Mar, [facility] [address] [id number] [address] [place] [address], [place] [address] Jan, [facility] [address] [id number] [address] [place] [address], [place] [address] Jan, [facility] [address] [id number] [address] [place] [address], [place] [address] December, [facility] [address] [id number] [address] [place] [address], [place] [address] December, [facility] [address] [id number] [address] [place] [address] December, [facility] [address] [id number] [address] [place] [address] December, [facility] [address] [id number] [address] [place] [address] Nov, [facility] [address] [id number] [address] [place] [address] Oct, [facility] [address] [id number] [address] [place] [address], [place] [address] Sep, [facility] [address] [id number] [address] [place] [address] Sep, [facility] [address] [id number] [address] [place] [address] Sep, [facility] [address] [id number] [address] [place] [address] Sep, [facility] [address] [id number] [address] [place] [address] Aug, [facility] [address] [id number] [address] [place] [address] Jun, [facility] [address] [id number] [address] [place] [address] May, [facility] [address] [id number] [address] [place] [address] Mar, [facility] [address] [id number] [address] [place] [address] Jun, [facility] [address] [id number] [address] [place] [address] May, [facility] [address] [id number] [address] [place] [address] May, IMMUNIZATIONS No Known Immunizations SOCIAL HISTORY Never Assessed REASON FOR VISIT Pain (acute)back - Lower back pain and when she sits she can not get back up. States it started Thursday afternoon. Doesn't remember injuring it. - Fely SARGENT PLAN OF CARE Activity Details Follow Up prn Reason: VITAL SIGNS Height 65 in 2017-02-18 Weight 249.5 lbs 2017-02-18 Temperature 98.4 degrees Fahrenheit 2017-02-18 Heart Rate 80 bpm 2017-02-18 Respiratory Rate 20 2017-02-18 BMI 41.51 kg/m2 2017-02-18 Blood pressure systolic 152 mmHg 2017-02-18 Blood pressure diastolic 66 mmHg 2017-02-18 MEDICATIONS Medication Instructions Dosage Frequency Start Date End Date Duration S tatus Fluoxetine HCl 10 mg Orally Once in the morning 3 capsules Active Trazodone HCl 50 mg Orally Once at bedtime for sleep 1 tablet Active Aripiprazole 2 MG Orally per day in the morning 1 tablet Active Omeprazole 20 MG TAKE [...] need ed 6h 15 Oct, 2015 Active Mobic 7.5 MG Orally twice a day 1 tablet 12h Jan,Jan, 17 10 days Active Bentyl 10 MG Orally Four times a day befo re meals and at bedtime for urgency with bowel movements 1 capsule 30 Acti ve RESULTS No Results PROCEDURES Procedure Date Ordered Result Body Site [facility] VISIT ESTABLISHED PATIENT February 18, 2017 INSTRUCTIONS MEDICATIONS ADMINISTERED No Known Medications MEDICAL (GENERAL) HISTORY Type Description Date Medical History depression Medical History hypothryroidism Medical History hyperlipidemia Medical History trauma: Stroke - with L side faci al drooping Surgical History hysterectomy Surgical History cholecystectomy Surgical History gall bladder removal Hospitalization History surgeries Hospitalization History stroke
[2020-02-21] MEDS ORDERED: PANT40TA2 PO (12:14)
--- NOTE | 2020-02-21 12:15 | Discharge Inst-Simple/Standard ---
Discharge Inst-Standard Discharge Medications New, Converted or Re-Newed RX: Transmitted to Pharmacy Patient Instructions/Follow Up Plan of Care/Instructions/FU: 2-3 weeks Sorin Activity as Tolerated: Yes Discharge Diet: Regular Diet KRAIG PALOMO DO Feb 21, 2020 12:15
[2020-02-21 12:20] VITALS: BP 158/70
[2020-02-21 12:50] VITALS: BP 152/68
[2020-02-21 13:15] VITALS: BP 152/68
--- NOTE | 2020-02-21 13:35 | Anesthesia-General Post-Op ---
MAC Patient Condition Mental Status/LOC: Same as Preop Cardiovascular: Satisfactory Nausea/Vomiting: Absent Respiratory: Satisfactory Pain: Controlled Complications: Absent Post Op Complications Complications None Follow Up Care/Instructions Patient Instructions None needed. Anesthesiology Discharge Order Discharge Order Patient is doing well, no complaints, stable vital signs, no apparent adverse anesthesia problems. No complications reported per nursing. EMMA BARRETT CRNA Feb 21, 2020 13:35
--- NOTE | 2020-02-21 14:33 | OPERATIVE REPORT ---
DATE OF SERVICE: 02/21/2020 PREOPERATIVE DIAGNOSIS: Dysphagia. POSTOPERATIVE DIAGNOSES: Hiatal hernia, gastritis. PROCEDURE: EGD with biopsies. SURGEON: Kraig Rowell DO. ANESTHESIA: Per [employer] CHEMICAL TECHNICIAN. ESTIMATED BLOOD LOSS: None. COMPLICATIONS: None. INDICATIONS: The patient is a 69-year-old female with dysphagia symptoms. She understands risks and benefits of procedure and wished to proceed with procedure. Consent was signed in the chart. DESCRIPTION OF PROCEDURE: The patient was taken to the endoscopy suite, placed in left lateral recumbent position. Timeout was performed. Scope was inserted in mouth, down the esophagus, stomach and into the duodenum without difficulty. There were no polyps, masses or ulcerations. Scope was slowly retracted back into the stomach where it was further insufflated. Slight gastritis appearance. Biopsy of the antrum was obtained. No polyps, masses or ulcerations. Scope was then back it was retroflexed where a hiatal hernia was noted. Scope was returned to its normal position, slowly withdrawn to distal esophagus. No polyps, masses or ulcerations. Biopsy of the GE junction was obtained. Scope was then slowly retracted back until completely removed. The patient tolerated procedure well without any complications. She was taken to recovery room in stable condition. RECOMMENDATIONS: The patient will be started on Protonix 40 mg daily. We will stop her omeprazole to see if any improvement of symptoms and the patient will follow up in two to three weeks. Any issues before that be seen at that time. Job ID: [id number] DocumentID: [id number] Dictated Date: 02/21/2020 12:18:38 Trashman Date: 02/21/2020 14:32:27 Dictated By: KRAIG ROWELL DO
== END 2020-02-21 13:15 | disposition home or self-care (01) ==
LOC: ENDO 10:12
PROVIDERS: ATTEND Surgery
DX: K44.9 Diaphragmatic hernia without obstruction or gangrene (principal); K29.70 Gastritis, unspecified, without bleeding; F32.9 Major depressive disorder, single episode, unspecified; E03.9 Hypothyroidism, unspecified; M06.9 Rheumatoid arthritis, unspecified; E66.01 Morbid (severe) obesity due to excess calories; Z68.41 Body mass index [BMI] 40.0-44.9, adult; Z79.899 Other long term (current) drug therapy; Z88.0 Allergy status to penicillin; Z90.710 Acquired absence of both cervix and uterus; Z90.49 Acquired absence of other specified parts of digestive tract

== ENCOUNTER → 2020-06-27 | Outpatient (CLI) | payer MEDICARE, MEDICAID ==
[~2020-06-27] MED LIST changes: +PANT40TA2 PO
--- NOTE | 2020-06-27 11:16 | Diagnostic Imaging Report ---
INDICATION: Screening. TECHNIQUE: The current study was also evaluated with a Computer Aided Detection (CAD) system. 3-D Tomographic imaging was also performed. COMPARISON: 05/13/2019, 04/22/2018, and 04/23/2017. FINDINGS: There are scattered fibroglandular densities bilaterally. There are benign type calcifications. There is no dominant mass, spiculated lesion, or suspicious calcification identified. The skin, nipples, and axillae are unremarkable. IMPRESSION: Benign findings as above. ACR BI-RADS Category 2: Benign findings. Result letter will be mailed to the patient. Note: At least 10% of breast cancer is not imaged by mammography. Dictated by: Dictated on workstation # [id number]
== END ==
LOC: RAD 10:06
PROVIDERS: ATTEND Nurse Practitioner Community Health
DX: Z12.31 Encounter for screening mammogram for malignant neoplasm of breast (principal)
CPT/HCPCS: 77063; 77067

== ENCOUNTER 2020-11-25 12:50 | Emergency (ER) | payer MEDICARE, MEDICAID ==
[~2020-11-25] VITALS: Ht 165.1 cm; Wt 106.6 kg
[2020-11-25] MEDS ORDERED: ONDANSETRON 4 MG/2 ML (SDV) Z0FRAN IVP ONE (13:00)
--- NOTE | 2020-11-25 13:02 | ED GI ---
General Stated Complaint: DIZZY/WEAKNESS Source of Information: Patient Exam Limitations: Other (poor short term memory ) History of Present Illness Date Seen by Provider: Nov 25, 2020 Time Seen by Provider: 12:54 Initial Comments This is a well-appearing 70 year-old female who presents to the ER via [facility] with complaints of nausea and vomiting since yesterday. States she has had couple episodes of vomiting yellow emesis, and felt a little dizzy and weak today after vomiting. Denies fever, chills, cough, shortness of breath, abdominal pain. Denies diarrhea or constipation. No ill contacts or Covid exposures. Allergies and Home Medications Allergies Coded Allergies: Penicillins (Verified Adverse Reaction, Intermediate, Uticaria, 09/19/11) Home Medications Fluoxetine HCl 10 Mg Tablet, 30 MG PO DAILY, (Reported) take 3 (10mg) tabs Levothyroxine Sodium 112 Mcg Tablet, 112 MCG PO DAILY, (Reported) Lovastatin 20 Mg Tablet, 20 MG PO HS, (Reported) Ondansetron 4 Mg Tab.rapdis, 4 MG PO Q6H PRN for NAUSEA/VOMITING Prescribed by: JACQUELYN ALCARAZ on 11/25/20 1457 Pantoprazole Sodium 40 Mg Tablet.dr, 40 MG PO DAILY Prescribed by: KRAIG PALOMO on 02/21/20 1214 Sulfamethoxazole/Trimethoprim 1 Each Tablet, 1 EACH PO BID Prescribed by: JACQUELYN ALCARAZ on 11/25/20 1514 Trazodone HCl 50 Mg Tablet, 50 MG PO HS, (Reported) Patient Home Medication List Home Medication List Reviewed: Yes Review of Systems Review of Systems Constitutional: no symptoms reported EENTM: No Symptoms Reported Respiratory: No Symptoms Reported Cardiovascular: No Symptoms Reported Gastrointestinal: See HPI Genitourinary: See HPI Musculoskeletal: no symptoms reported Past Odblovn-Meathz-Bogzqw Hx Patient Social History Recent Hopitalizations: No Immunizations Up To Date Tetanus Booster (TDap): Unknown Date of Influenza Vaccine: Jun 03, 2011 Seasonal Allergies Seasonal Allergies: No Past Medical History Surgeries: Yes Gallbladder, Hysterectomy Respiratory: No Cardiac: No 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 oz. kg; 40.02 BMI Method: General Appearance: WD/WN, no apparent distress HEENT: PERRL/EOMI, normal ENT inspection Neck: full range of motion, normal inspection Respiratory: lungs clear, normal breath sounds Cardiovascular: regular rate, rhythm, no murmur Gastrointestinal: normal bowel sounds, non tender, soft Extremities: normal range of motion, non-tender, normal inspection Neurologic/Psychiatric: alert, normal mood/affect, oriented x 3, facial droop (residule from prior stroke ), other (left eye/lip droop residule from prior stroke. ) Skin: normal color, warm/dry Progress/Results/Core Measures Results/Orders Lab Results Laboratory Tests Test 11/25/20 13:24 11/25/20 14:27 Range/Units White Blood Count 10.4 4.3-11.0 10^3/uL Red Blood Count 4.55 3.80-5.11 10^6/uL Hemoglobin 13.6 11.5-16.0 g/dL Hematocrit 44 35-52 % Mean Corpuscular Volume 96 80-99 fL Mean Corpuscular Hemoglobin 30 25-34 pg Mean Corpuscular Hemoglobin Concent 31 L 32-36 g/dL Red Cell Distribution Width 12.2 10.0-14.5 % Platelet Count 256 130-400 10^3/uL Mean Platelet Volume 10.4 9.0-12.2 fL Immature Granulocyte % (Auto) 0 % Neutrophils (%) (Auto) 82 H 42-75 % Lymphocytes (%) (Auto) 14 12-44 % Monocytes (%) (Auto) 2 0-12 % Eosinophils (%) (Auto) 0 0-10 % Basophils (%) (Auto) 1 0-10 % Neutrophils # (Auto) 8.6 H 1.8-7.8 10^3/uL Lymphocytes # (Auto) 1.5 1.0-4.0 10^3/uL Monocytes # (Auto) 0.3 0.0-1.0 10^3/uL Eosinophils # (Auto) 0.0 0.0-0.3 10^3/uL Basophils # (Auto) 0.1 0.0-0.1 10^3/uL Immature Granulocyte # (Auto) 0.0 0.0-0.1 10^3/uL Sodium Level 137 135-145 MMOL/L Potassium Level 4.7 3.6-5.0 MMOL/L Chloride Level 100 98-107 MMOL/L Carbon Dioxide Level 29 21-32 MMOL/L Anion Gap 8 5-14 MMOL/L Blood Urea Nitrogen 10 7-18 MG/DL Creatinine 0.82 0.60-1.30 MG/DL Estimat Glomerular Filtration Rate > 60 BUN/Creatinine Ratio 12 Glucose Level 115 H 70-105 MG/DL Calcium Level 9.6 8.5-10.1 MG/DL Corrected Calcium 10.1 8.5-10.1 MG/DL Total Bilirubin 0.5 0.1-1.0 MG/DL Aspartate Amino Transf (AST/SGOT) 31 5-34 U/L Alanine Aminotransferase (ALT/SGPT) 12 0-55 U/L Alkaline Phosphatase 108 40-136 U/L Total Protein 8.1 6.4-8.2 GM/DL Albumin 3.4 3.2-4.5 GM/DL Urine Color YELLOW Urine Clarity SL CLOUDY Urine pH 6.5 5-9 Urine Specific [place] 1.010 L 1.016-1.022 Urine Protein NEGATIVE NEGATIVE Urine Glucose (UA) NEGATIVE NEGATIVE Urine Ketones NEGATIVE NEGATIVE Urine Nitrite NEGATIVE NEGATIVE Urine Bilirubin NEGATIVE NEGATIVE Urine Urobilinogen 0.2 < = 1.0 MG/DL Urine Leukocyte Esterase 3+ H NEGATIVE Urine RBC (Auto) NEGATIVE NEGATIVE Urine RBC RARE /HPF Urine WBC 5-10 H /HPF Urine Squamous Epithelial Cells 2-5 /HPF Urine Renal Epithelial Cells NONE /HPF Urine Crystals NONE /LPF Urine Amorphous Sediment FEW ADIN URATES H /LPF Urine Bacteria MODERATE H /HPF Urine Casts NONE /LPF Urine Mucus NEGATIVE /LPF Urine Culture Indicated YES My Orders Orders - JACQUELYN ALCARAZ APRN Urinalysis (11/25/20 12:51) Ekg Tracing (11/25/20 12:51) Cbc With Automated Diff (11/25/20 12:59) Comprehensive Metabolic Panel (11/25/20 12:59) Ondansetron Injection (Zofran Injectio (11/25/20 13:00) Ceftriaxone For Iv Use (Rocephin For I (11/25/20 15:00) Urine Culture (11/25/20 14:27) Medications Given in ED Current Medications Medications Dose Ordered Sig/Zora Route Start Time Stop Time Status Last Admin Dose Admin Ceftriaxone Sodium 1000 mg/ Sterile Water 10 ml @ 200 mls/hr ONCE ONCE IV 11/25/20 15:00 11/25/20 15:02 DC 11/25/20 15:08 200 MLS/HR Ondansetron HCl 4 mg ONCE ONCE IVP 11/25/20 13:00 11/25/20 13:01 DC 11/25/20 13:34 4 MG Vital Signs/I&O 11/25/20 12:52 Temp 36.3 Pulse 56 Resp 18 B/P (MAP) 187/70 (109) Pulse Ox 100 O2 Delivery Room Air Progress Progress Note : Progress Note Patient examined and in no acute distress. Orders placed for basic labs and UA. Will give Zofran for nausea. Reports improvement of nausea with Zofran. Labs reviewed and are unremarkable other than she has a noted UTI. Orders placed for Rocephin 1 g IM and will send prescription for Bactrim. Reviewed discharge plan of care and she is agreeable with plan. No questions or concerns voiced at this time. Departure Impression Primary Impression: Urinary tract infection Disposition: 01 HOME, SELF-CARE Condition: Improved Departure-Patient Inst. Decision time for Depature: 14:53 Referrals: [facility] [place] (PCP) Primary Care Physician ROMA POTTS (Family) Primary Care Physician Patient Instructions: Urinary Tract Infection, Adult (DC) Add. Discharge Instructions: Plan: 1. Discharge home. 2. Take all of your antibiotics as directed and complete full course. 3. Drink plenty of fluids. 4 Return to ER for any new or worsening symptoms. 5. Take Zofran 4mg by mouth every 6 hours as needed for nausea. Scripts Sulfamethoxazole/Trimethoprim (Sulfamethoxazole-Tmp Ss Tablet) 1 Each Tablet 1 EACH PO BID for 7 Days, #14 TAB 0 Refills Prov: JACQUELYN ALCARAZ TECHNICAL TRAINING INSTRUCTOR 11/25/20 Ondansetron (Ondansetron Odt) 4 Mg Tab.rapdis 4 MG PO Q6H PRN for NAUSEA/VOMITING, #30 TAB 0 Refills Prov: JACQUELYN ALCARAZ APRN 11/25/20 Copy Copies To 1: [facility] [place] JACQUELYN ALCARAZ APRN Nov 25, 2020 13:02
[2020-11-25 13:31] LABS: BASOPHILS # (AUTO) 0.1 10^3/uL (0.0-0.1); BASOPHILS % (AUTO) 1 % (0-10); EOSINOPHILS % (AUTO) 0 % (0-10); HEMATOCRIT 44 % (35-52); HEMOGLOBIN 13.6 g/dL (11.5-16.0); LYMPHOCYTES # (AUTO) 1.5 10^3/uL (1.0-4.0); LYMPHOCYTES % (AUTO) 14 % (12-44); MEAN CORPUSCULAR HEMOGLOBIN 30 pg (25-34); MEAN CORPUSCULAR HGB CONC 31 g/dL (32-36); MEAN CORPUSCULAR VOLUME 96 fL (80-99); MEAN PLATELET VOLUME 10.4 fL (9.0-12.2); MONOCYTES # (AUTO) 0.3 10^3/uL (0.0-1.0); MONOCYTES % (AUTO) 2 % (0-12); NEUTROPHILS # (AUTO) 8.6 10^3/uL (1.8-7.8); NEUTROPHILS % (AUTO) 82 % (42-75); PLATELET COUNT 256 10^3/uL (130-400); WHITE BLOOD COUNT 10.4 10^3/uL (4.3-11.0)
[2020-11-25 13:55] LABS: ALANINE AMINOTRANSFERASE 12 U/L (0-55); ALBUMIN 3.4 GM/DL (3.2-4.5); ALKALINE PHOSPHATASE 108 U/L (40-136); BILIRUBIN,TOTAL 0.5 MG/DL (0.1-1.0); BUN/CREATININE RATIO 12; CALCIUM 9.6 MG/DL (8.5-10.1); CARBON DIOXIDE 29 MMOL/L (21-32); CHLORIDE 100 MMOL/L (98-107); CREATININE SERUM 0.82 MG/DL (0.60-1.30); GFR ESTIMATED > 60; GLUCOSE 115 MG/DL (70-105); POTASSIUM 4.7 MMOL/L (3.6-5.0); SODIUM 137 MMOL/L (135-145); TOTAL PROTEIN 8.1 GM/DL (6.4-8.2)
[2020-11-25 14:36] LABS: BILIRUBIN,URINE NEGATIVE (NEGATIVE); CLARITY,URINE SL CLOUDY; COLOR,URINE YELLOW; GLUCOSE, URINE (UA) NEGATIVE (NEGATIVE); KETONES,URINE NEGATIVE (NEGATIVE); LEUKOCYTE ESTERASE ,URINE 3+ (NEGATIVE); NITRITE,URINE NEGATIVE (NEGATIVE); PH,URINE 6.5 (5-9); PROTEIN,URINE NEGATIVE (NEGATIVE)
[2020-11-25 14:48] LABS: BACTERIA,URINE MODERATE /HPF; RBC,URINE RARE /HPF
[2020-11-25 14:49] LABS: AMORPHOUS SEDIMENT,UR FEW AMOR URATES /LPF
[2020-11-25] MEDS ORDERED: ONDA4TAB11 PO (14:57)
[2020-11-25] MEDS ORDERED: cefTRIAXone FOR IV USE 1,000 MG in WATER (STERILE) FOR INJECTION 10 ML IV ONE (15:00)
[2020-11-25] MEDS ORDERED: SULF-11 PO (15:14)
[2020-11-25 15:15] VITALS: BP 157/70
== END 2020-11-25 15:15 | disposition home or self-care (01) ==
LOC: EDUNIT# 12:50 → ER 12:51
DX: N39.0 Urinary tract infection, site not specified (principal); E03.9 Hypothyroidism, unspecified; F32.9 Major depressive disorder, single episode, unspecified; Z88.0 Allergy status to penicillin; Z79.890 Hormone replacement therapy
CPT/HCPCS: 36415; 80053; 81000; 85025; 87088; 93005

== ENCOUNTER 2021-06-12 16:01 | Emergency (ER) | payer MEDICARE, MEDICAID ==
[~2021-06-12] VITALS: Ht 165 cm; Wt 108.0 kg
[~2021-06-12 16:01] MED LIST changes: +ONDA4TAB11 PO; +SULF-11 PO
--- NOTE | 2021-06-12 16:16 | ED General ---
General Chief Complaint: Altered Mental Status Stated Complaint: PSYCH Nursing Triage Note: ARRIVED VIA EMS FROM HOME. STAFF AT [facility] REPORT PERIODS OF CONFUSIONS AND HALLUCINATIONS OVER THE LAST COUPLE OF DAYS. HAS FOUND HER IN THE PARKING LOT LOOKING FOR HER NEICE WHO WAS NOT THERE ON SEVERAL OCCASIONS. Source of Information: Patient, EMS Exam Limitations: No Limitations (CARA FAIRBANKS MD) History of Present Illness Date Seen by Provider: Jun 12, 2021 Time Seen by Provider: 16:04 Initial Comments Patient is a 70-year-old patient who presents to the emergency department by EMS today from her local apartment at [facility] with a report of staff of being confused over the last several days and possibly hallucinating. She was found out in the street looking for a niece, she has been talking about a nephew recently. Patient tells me that she is a little depressed and this is chronic. She actually denies any other symptoms other than urinary frequency and some diarrhea. She denies complaints of headache, vision changes, chest pain, shortness of breath. She has no abdominal pain, nausea or vomiting. She denies leg swelling or sores to her skin. She denies recent falls. She is alert to self, location and states that the year is 2000 instead of 2020. Vital signs are stable. Looks like she has Per review of the medical record a history of thyroid disease, hypercholesterolemia. Self-admitted depression as stated. Patient denies any suicidal ideation. She denies homicidal ideation. All other review of systems reviewed and negative except as stated Timing/Duration: 2-3 Days Severity: Moderate Associated Systoms: Other (diarrhea, "going to the bathroom more than usual") (CARA FAIRBANKS MD) Initial Comments I agree with the above documented history and the physical exam. Patient endorses she is not having hallucinations of her niece Marissa says she found a loved 1 in her home dying. This was in January. He does follow with Dr. Hughes but does not see a counselor. She says she would prefer to go home and follow- up with Dr. Hugehs. (AUSTIN KELLER) Allergies and Home Medications Allergies Coded Allergies: Penicillins (Verified Adverse Reaction, Intermediate, Uticaria, 09/19/11) Patient Home Medication List Home Medication List Reviewed: Yes (CARA FAIRBANKS MD) Levothyroxine Sodium (Levothyroxine Sodium) 112 Mcg Tablet, 112 MCG PO DAILY, (Reported) Entered as Reported by: REX GEORGES on 02/15/20 120 Lovastatin (Lovastatin) 20 Mg Tablet, 20 MG PO HS, (Reported) Entered as Reported by: REX GEORGES on 02/15/20 1201 Discontinued Medications Fluoxetine HCl (Fluoxetine HCl) 10 Mg Tablet, 30 MG PO DAILY, (Reported) Discontinued Reason: No Longer Taking Entered as Reported by: REX GEORGES on 02/15/20 1201 Last Action: Discontinued Ondansetron (Ondansetron Odt) 4 Mg Tab.rapdis, 4 MG PO Q6H PRN for NAUSEA/VOMITING Discontinued Reason: No Longer Taking Prescribed by: JACQUELYN ALCARAZ on 11/25/20 1457 Last Action: Discontinued Pantoprazole Sodium (Protonix) 40 Mg Tablet.dr, 40 MG PO DAILY Discontinued Reason: No Longer Taking Prescribed by: KRAIG PALOMO on 02/21/20 1214 Last Action: Discontinued Sulfamethoxazole/Trimethoprim (Sulfamethoxazole-Tmp Ss Tablet) 1 Each Tablet, 1 EACH PO BID Discontinued Reason: No Longer Taking Prescribed by: JACQUELYN ALCARAZ on 11/25/20 1514 Last Action: Discontinued Trazodone HCl (Trazodone HCl) 50 Mg Tablet, 50 MG PO HS, (Reported) Discontinued Reason: No Longer Taking Entered as Reported by: REX GEORGES on 02/15/20 120 Last Action: Discontinued Review of Systems Review of Systems Constitutional: see HPI EENTM: no symptoms reported Respiratory: no symptoms reported Cardiovascular: no symptoms reported Gastrointestinal: diarrhea Genitourinary: frequency : No Musculoskeletal: no symptoms reported Skin: no symptoms reported Psychiatric/Neurological: Depressed (CARA FAIRBANKS MD) All Other Systems Reviewed Negative Unless Noted: Yes (CARA FAIRBANKS MD) Past Wyavhpa-Ufufoj-Jzloej Hx Patient Social History Tobacco Use?: No Smokeless Tobacco Frequency: Never a User Substance use?: No (CARA FAIRBANKS MD) Immunizations Up To Date Tetanus Booster (TDap): Unknown Second COVID19 Vaccination Major: 12/21 COVID19 Vaccine Experience Specialist: JESSICA (CARA FAIRBANKS MD) Seasonal Allergies Seasonal Allergies: No (CARA FAIRBANKS MD) Past Medical History Surgeries: Yes Gallbladder, Hysterectomy Respiratory: No Cardiac: No 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 oz. kg; 39.00 BMI Method: General Appearance: No Apparent Distress, WD/WN Eyes: Right Eye Normal Inspection; Left Eye PERRL, Left Eye EOMI; Bilateral Eye Other (patient has pre-existing left facial droop (ptosis) from ) HEENT: TMs Normal, Pharynx Normal Neck: Normal Inspection Respiratory: Lungs Clear, Normal Breath Sounds, No Accessory Muscle Use, No Respiratory Distress Cardiovascular: Regular Rate, Rhythm, Normal Peripheral Pulses Gastrointestinal: Non Tender, Soft Extremity: Normal Inspection, Normal Range of Motion, Non Tender, No Pedal Edema Neurologic/Psychiatric: Alert, No Motor/Sensory Deficits, Depressed Affect, Other (oriented to person, place and date (for the most part - says 2000 instead of 2020)) Skin: Normal Color, Warm/Dry (CARA FAIRBANKS MD) Progress/Results/Core Measures Suspected Sepsis SIRS Temperature: Pulse: 68 Respiratory Rate: 16 Laboratory Tests 06/12/21 16:20: White Blood Count 9.1 Blood Pressure 187 /72 Mean: 110 Laboratory Tests 06/12/21 16:20: Platelet Count 247 (CARA FAIRBANKS MD) Results/Orders Lab Results Laboratory Tests Test 06/12/21 16:20 06/12/21 17:00 Range/Units White Blood Count 9.1 4.3-11.0 10^3/uL Red Blood Count 4.41 3.80-5.11 10^6/uL Hemoglobin 13.5 11.5-16.0 g/dL Hematocrit 42 35-52 % Mean Corpuscular Volume 96 80-99 fL Mean Corpuscular Hemoglobin 31 25-34 pg Mean Corpuscular Hemoglobin Concent 32 32-36 g/dL Red Cell Distribution Width 12.1 10.0-14.5 % Platelet Count 247 130-400 10^3/uL Mean Platelet Volume 10.9 9.0-12.2 fL Immature Granulocyte % (Auto) 0 % Neutrophils (%) (Auto) 64 42-75 % Lymphocytes (%) (Auto) 28 12-44 % Monocytes (%) (Auto) 5 0-12 % Eosinophils (%) (Auto) 2 0-10 % Basophils (%) (Auto) 1 0-10 % Neutrophils # (Auto) 5.9 1.8-7.8 10^3/uL Lymphocytes # (Auto) 2.5 1.0-4.0 10^3/uL Monocytes # (Auto) 0.5 0.0-1.0 10^3/uL Eosinophils # (Auto) 0.1 0.0-0.3 10^3/uL Basophils # (Auto) 0.1 0.0-0.1 10^3/uL Immature Granulocyte # (Auto) 0.0 0.0-0.1 10^3/uL Sodium Level 140 135-145 MMOL/L Potassium Level 3.4 L 3.6-5.0 MMOL/L Chloride Level 101 98-107 MMOL/L Carbon Dioxide Level 27 21-32 MMOL/L Anion Gap 12 5-14 MMOL/L Blood Urea Nitrogen 10 7-18 MG/DL Creatinine 0.82 0.60-1.30 MG/DL Estimat Glomerular Filtration Rate 69 BUN/Creatinine Ratio 12 Glucose Level 119 H 70-105 MG/DL Calcium Level 8.8 8.5-10.1 MG/DL Corrected Calcium 9.1 8.5-10.1 MG/DL Total Bilirubin 0.6 0.1-1.0 MG/DL Aspartate Amino Transf (AST/SGOT) 26 5-34 U/L Alanine Aminotransferase (ALT/SGPT) 10 0-55 U/L Alkaline Phosphatase 101 40-136 U/L Total Protein 7.3 6.4-8.2 GM/DL Albumin 3.6 3.2-4.5 GM/DL Urine Color YELLOW Urine Clarity CLEAR Urine pH 6.0 5-9 Urine Specific [place] 1.025 H 1.016-1.022 Urine Protein NEGATIVE NEGATIVE Urine Glucose (UA) NEGATIVE NEGATIVE Urine Ketones NEGATIVE NEGATIVE Urine Nitrite NEGATIVE NEGATIVE Urine Bilirubin NEGATIVE NEGATIVE Urine Urobilinogen 0.2 < = 1.0 MG/DL Urine Leukocyte Esterase NEGATIVE NEGATIVE Urine RBC (Auto) TRACE-I H NEGATIVE Urine RBC NONE /HPF Urine WBC NONE /HPF Urine Squamous Epithelial Cells RARE /HPF Urine Crystals NONE /LPF Urine Bacteria NEGATIVE /HPF Urine Casts NONE /LPF Urine Mucus NEGATIVE /LPF Urine Culture Indicated NO (AUSTIN KELLER) Vital Signs/I&O 06/12/21 16:01 Temp 36.0 Pulse 68 Resp 16 B/P (MAP) 187/72 (110) Pulse Ox 96 O2 Delivery Room Air (AUSTIN KELLER) Vital Signs/I&O Capillary Refill : Less Than 3 Seconds (CARA FAIRBANKS MD) Blood Pressure Mean: 110 Progress Note : Time: 16:36 Progress Note Patient told the nurse that she found her best friend several months ago and now twice since that time she has heard voices that tell her that her niece is out in the parking lot. Patient did tell me that she does speak with a therapist, I believe on a weekly basis. (CARA FAIRBANKS MD) Progress Note : Time: 18:54 Progress Note The patient is lucid and A&O x4. She is aware of and upset by the hallucinations. It seems she is having prolonged grief reaction and depression with psychotic features. Discussed the Case with her Niece and reviewed meds. On Trazodone, Abilify and fluoxetine. She is only on half a tablet of Abilify at night and since she is complaining of insomnia we thought maybe we could increase that to a full tablet and see if that helps with the psychotic features as well as with her sleep. The Niece seems to be quite involved in her care and feels that getting in quicker with primary care team, psychiatrist and some counseling would be the best route. We discussed the case with the patient and her friend Vicki and they are in agreement with the plan to go home and get close up following up with Dr. Hughes, psychiatry Dr. Wilkinson, PCP and a grief counselor. Patient was able to dissipate and teach back. (AUSTIN KELLER) Departure Communication (PCP) 1919: Discussed the case with Dr. 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 Decision time for Depature: 19:18 (AUSTIN KELLER) Referrals: [facility] (PCP) Primary Care Physician ROMA POTTS (Family) Primary Care Physician Patient Instructions: Depression, Adult ED Add. Discharge Instructions: Start taking a whole tablet of Abilify/aripiprazole at night until you see your doctor. Expect to hear from [facility] to get set up for some close appointment in the next week. If you do not hear from them by tomorrow afternoon you may call them at the number listed above. Return to the ER promptly if you are having worsening symptoms or concerns. Alternatively you may call Marissa haynes for help. All discharge instructions reviewed with patient and/or family. Voiced understanding. CARA FAIRBANKS MD Jun 12, 2021 16:16 AUSTIN KELLER Jun 12, 2021 19:06
[2021-06-12 16:27] LABS: BASOPHILS # (AUTO) 0.1 10^3/uL (0.0-0.1); BASOPHILS % (AUTO) 1 % (0-10); EOSINOPHILS # (AUTO) 0.1 10^3/uL (0.0-0.3); EOSINOPHILS % (AUTO) 2 % (0-10); HEMATOCRIT 42 % (35-52); HEMOGLOBIN 13.5 g/dL (11.5-16.0); LYMPHOCYTES # (AUTO) 2.5 10^3/uL (1.0-4.0); LYMPHOCYTES % (AUTO) 28 % (12-44); MEAN CORPUSCULAR HEMOGLOBIN 31 pg (25-34); MEAN CORPUSCULAR HGB CONC 32 g/dL (32-36); MEAN CORPUSCULAR VOLUME 96 fL (80-99); MEAN PLATELET VOLUME 10.9 fL (9.0-12.2); MONOCYTES # (AUTO) 0.5 10^3/uL (0.0-1.0); MONOCYTES % (AUTO) 5 % (0-12); NEUTROPHILS # (AUTO) 5.9 10^3/uL (1.8-7.8); NEUTROPHILS % (AUTO) 64 % (42-75); PLATELET COUNT 247 10^3/uL (130-400); WHITE BLOOD COUNT 9.1 10^3/uL (4.3-11.0)
[2021-06-12 16:44] LABS: ALBUMIN 3.6 GM/DL (3.2-4.5)
[2021-06-12 16:45] LABS: POTASSIUM 3.4 MMOL/L (3.6-5.0)
[2021-06-12 16:46] LABS: CALCIUM 8.8 MG/DL (8.5-10.1)
[2021-06-12 16:47] LABS: TOTAL PROTEIN 7.3 GM/DL (6.4-8.2)
[2021-06-12 16:49] LABS: BILIRUBIN,TOTAL 0.6 MG/DL (0.1-1.0)
[2021-06-12 16:50] LABS: CREATININE SERUM 0.82 MG/DL (0.60-1.30)
[2021-06-12 17:05] LABS: BILIRUBIN,URINE NEGATIVE (NEGATIVE); CLARITY,URINE CLEAR; COLOR,URINE YELLOW; GLUCOSE, URINE (UA) NEGATIVE (NEGATIVE); KETONES,URINE NEGATIVE (NEGATIVE); LEUKOCYTE ESTERASE ,URINE NEGATIVE (NEGATIVE); NITRITE,URINE NEGATIVE (NEGATIVE); PROTEIN,URINE NEGATIVE (NEGATIVE)
[2021-06-12 17:10] LABS: BACTERIA,URINE NEGATIVE /HPF; SQUAMOUS EPITHELIAL CELL,UR RARE /HPF
[2021-06-12 19:24] VITALS: BP 161/87
== END 2021-06-12 19:35 | disposition home or self-care (01) ==
LOC: EDUNIT# 16:01 → ER 16:03
DX: F43.20 Adjustment disorder, unspecified (principal); F32.9 Major depressive disorder, single episode, unspecified; E03.9 Hypothyroidism, unspecified; Z79.890 Hormone replacement therapy; Z79.899 Other long term (current) drug therapy
CPT/HCPCS: 36415; 51701; 80053; 81000; 85025

== ENCOUNTER 2021-06-29 00:55 | Observation (INO) | payer MEDICARE, MEDICAID ==
--- NOTE | 2021-06-29 01:18 | ED Neurological Problem ---
General Stated Complaint: AMS Source: patient, EMS Exam Limitations: no limitations History of Present Illness Date Seen by Provider: Jun 29, 2021 Time Seen by Provider: 00:55 Initial Comments Patient to the ER by EMS from home with chief complaint that she was confused. EMS states she was alert and oriented x4 however was off. They did not see any facial droop slurred speech. Did not check her blood sugar. She denies a history of diabetes. EMS thinks that she has a history of a stroke before. Patient denies history of stroke. Patient denies knowing what was going on prior to this. She called 911 3 or 4 times in the past hour stating she was confused and did not know what was going on. She denies nausea, chest pain, shortness of air, fevers, chills, dysuria, diarrhea or constipation. Patient states she was not awoken from sleep. She was at home with her cat and no one else. Allergies and Home Medications Allergies Coded Allergies: Penicillins (Verified Adverse Reaction, Intermediate, Uticaria, 09/19/11) Patient Home Medication List Home Medication List Reviewed: Yes Levothyroxine Sodium (Levothyroxine Sodium) 112 Mcg Tablet, 112 MCG PO DAILY, (Reported) Entered as Reported by: REX GEORGES on 02/15/20 1201 Lovastatin (Lovastatin) 20 Mg Tablet, 20 MG PO HS, (Reported) Entered as Reported by: REX GEORGES on 02/15/20 1201 Review of Systems Review of Systems Constitutional: No chills, No diaphoresis Eyes: Denies Blindness, Denies Blurred Vision Ears, Nose, Mouth, Throat: denies ear pain, denies ear discharge Respiratory: No cough, No short of breath Cardiovascular: No chest pain, No palpitations Gastrointestinal: No abdominal pain, No nausea, No vomiting Genitourinary: No discharge, No dysuria Musculoskeletal: No back pain, No joint pain Past Njtjkjp-Poegen-Dckmwk Hx Immunizations Up To Date Tetanus Booster (TDap): Unknown Second COVID19 Vaccination Major: 12/21 Seasonal Allergies Seasonal Allergies: No Past Medical History Surgeries: Yes Gallbladder, Hysterectomy Respiratory: No Cardiac: No 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 oz. kg; 39.00 BMI Method: General Appearance: WD/WN, obese HEENT: PERRL/EOMI, normal ENT inspection, pharynx normal Neck: non-tender, full range of motion, supple, normal inspection Respiratory: lungs clear, normal breath sounds, no respiratory distress, no accessory muscle use Cardiovascular: normal peripheral pulses, regular rate, rhythm Peripheral Pulses: 2+ Radial Pulses (R), 2+ Radial Pulses (L) Gastrointestinal: normal bowel sounds, non tender, soft Extremities: normal range of motion, non-tender, normal inspection, normal capillary refill Neurologic/Psychiatric: alert, normal mood/affect, oriented x 3, other (Complete unilateral left-sided facial droop with a little aphasia and a little dysarthria) Crainal Nerves: normal hearing, PERRL, abnormal speech, facial droop; No gaze palsy Coordination/Gait: normal finger to nose, normal gait Motor/Sensory: no sensory deficit Skin: normal color, warm/dry Stroke Onset of Symptoms Date of Onset of Symptoms: Jun 29, 2021 Time of Symptom Onset: 00:01 Symptoms onset unknown: Yes NIH Stroke Scale Assessment Select: Initial Level of Consciousness: 0=Alert (0), Level of Consciousness- Questions: 0=Answers both month/age (0), LOC Commands: 0=Performs both tasks (0), Gaze: Normal (0), Visual Calderon: 0=No visual loss (0), Facial Movement (Facial Paresis): 3=Complete paralysis (3), Motor Function-Arms Right: 0=No drift (0), Motor Function-Arms Left: 0=No drift (0), Motor Function-Legs Right: 0=No drift (0), Motor Function-Legs Left: 0=No drift (0), Limb Ataxia: 0=Absent (0), Sensory: 0=Normal:no loss (0), Best Language: 1=Mild to moderat aphasia (1), Dysarthria: 1=Mild to moderate loss (1), Extinction & Inattentio n: 0=No abnormality (0), Total: 5 Stroke Thrombolytic Exclusion Age 18 or Over: Yes Acute intenal hemorrhage: No History of CVA: No Uncontrolled Coagulation Defec: No Intracranial Hemorrhage: No Severe Hypertension: No GI or Bleed: No Subarachnoid Hemorrhage: No Intracranial Neoplasm/Aneurysm: No Oral Anticoagulants: No Surgery or Trauma: No Puncture of Non-Compressible V: No Recent CPR: No Diabetic Hemorrhagic Retinopat: No Organ Biopsy: No Recent Obstetric Delivery: No Glucose: No (134) Significant Hepatic Dysfunctio: No NIH Stoke Scale >22: No Bacterial Endocarditis: No Pericarditis: No Improving Symptoms: No Platelets: No TPA Contraindication: No Progress/Results/Core Measures Results/Orders Lab Results Laboratory Tests Test 06/29/21 01:00 06/29/21 01:15 06/29/21 01:25 Range/Units Glucometer 134 H 70-110 MG/DL White Blood Count 8.1 4.3-11.0 10^3/uL Red Blood Count 4.46 3.80-5.11 10^6/uL Hemoglobin 13.6 11.5-16.0 g/dL Hematocrit 43 35-52 % Mean Corpuscular Volume 97 80-99 fL Mean Corpuscular Hemoglobin 31 25-34 pg Mean Corpuscular Hemoglobin Concent 32 32-36 g/dL Red Cell Distribution Width 12.3 10.0-14.5 % Platelet Count 234 130-400 10^3/uL Mean Platelet Volume 11.3 9.0-12.2 fL Immature Granulocyte % (Auto) 0 % Neutrophils (%) (Auto) 63 42-75 % Lymphocytes (%) (Auto) 26 12-44 % Monocytes (%) (Auto) 8 0-12 % Eosinophils (%) (Auto) 2 0-10 % Basophils (%) (Auto) 1 0-10 % Neutrophils # (Auto) 5.1 1.8-7.8 10^3/uL Lymphocytes # (Auto) 2.1 1.0-4.0 10^3/uL Monocytes # (Auto) 0.6 0.0-1.0 10^3/uL Eosinophils # (Auto) 0.2 0.0-0.3 10^3/uL Basophils # (Auto) 0.1 0.0-0.1 10^3/uL Immature Granulocyte # (Auto) 0.0 0.0-0.1 10^3/uL Prothrombin Time 14.8 H 12.2-14.7 SEC INR Comment 1.1 0.8-1.4 Activated Partial Thromboplast Time 28 24-35 SEC D-Dimer 0.74 H 0.00-0.49 UG/ML Sodium Level 139 135-145 MMOL/L Potassium Level 4.2 3.6-5.0 MMOL/L Chloride Level 101 98-107 MMOL/L Carbon Dioxide Level 27 21-32 MMOL/L Anion Gap 11 5-14 MMOL/L Blood Urea Nitrogen 16 7-18 MG/DL Creatinine 0.93 0.60-1.30 MG/DL Estimat Glomerular Filtration Rate 60 BUN/Creatinine Ratio 17 Glucose Level 119 H 70-105 MG/DL Calcium Level 9.6 8.5-10.1 MG/DL Corrected Calcium 9.8 8.5-10.1 MG/DL Total Bilirubin 0.4 0.1-1.0 MG/DL Aspartate Amino Transf (AST/SGOT) 34 5-34 U/L Alanine Aminotransferase (ALT/SGPT) 21 0-55 U/L Alkaline Phosphatase 114 40-136 U/L Troponin I < 0.028 <0.028 NG/ML Total Protein 7.7 6.4-8.2 GM/DL Albumin 3.7 3.2-4.5 GM/DL Urine Color YELLOW Urine Clarity CLEAR Urine pH 5.5 5-9 Urine Specific Irwin >=1.030 1.016-1.022 Urine Protein NEGATIVE NEGATIVE Urine Glucose (UA) NEGATIVE NEGATIVE Urine Ketones NEGATIVE NEGATIVE Urine Nitrite NEGATIVE NEGATIVE Urine Bilirubin NEGATIVE NEGATIVE Urine Urobilinogen 0.2 < = 1.0 MG/DL Urine Leukocyte Esterase NEGATIVE NEGATIVE Urine RBC (Auto) 2+ H NEGATIVE Urine RBC 5-10 H /HPF Urine WBC 0-2 /HPF Urine Squamous Epithelial Cells 5-10 /HPF Urine Crystals PRESENT H /LPF Urine Triple Phosphate Crystals FEW H /LPF Urine Bacteria MODERATE H /HPF Urine Casts PRESENT /LPF Urine Hyaline Casts 0-2 H /LPF Urine Mucus MODERATE H /LPF Urine Culture Indicated YES My Orders Orders - AUSTIN KELLRE Cbc With Automated Diff (06/29/21 01:10) Protime With Inr (06/29/21 01:10) Partial Thromboplastin Time (06/29/21 01:10) Comprehensive Metabolic Panel (06/29/21:10) Fibrin Degradation Products (06/29/21:10) Troponin I (06/29/21:10) Ua Culture If Indicated (06/29/21:10) Chest 1 View, Ap/Pa Only (06/29/21:10) Catheter(Urinary) Insert & Ass 03,15 (06/29/21:10) Ekg Tracing (06/29/21:10) Accucheck Stat ONCE (06/29/21:10) Ed Iv/Invasive Line Start (06/29/21:10) Ed Iv/Invasive Line Start (06/29/21:10) Vital Signs Stroke Patient Q15M (06/29/21 01:10) Ct Head Wo-R/O Stroke (06/29/21 01:10) O2 (06/29/21:10) Intake & Output 06,14,22 (06/29/21:10) Monitor-Rhythm Ecg Trace Only (06/29/21:10) Dysphagia Screening Tool (06/29/21:10) Post Thrombolytic Adminstratio (06/29/21:10) Lipid Panel (06/30/21 06:00) Urine Culture (06/29/21 01:25) Ct Angio Head/Neck (06/29/21 02:07) Ed Iv/Invasive Line Start (06/29/21 02:07) Ns Iv 1000 Ml (Sodium Chloride 0.9%) (06/29/21 02:15) Vital Signs/I&O 06/29/21 00:59 Temp 36.2 Pulse 81 Resp 16 B/P (MAP) 176/94 (121) Pulse Ox 98 O2 Delivery Room Air Progress Progress Note #1: Time: 01:15 Progress Note Discussed the case with Dr. Masterson stroke neurologist on-call at [facility]. Her left-sided facial droop appears to be consistent with a lower motor neuron palsy given the non-sparring nature of her left-sided forehead facial muscles. She has no other neurologic deficits. Upon further questioning and review of the chart it shows that she has had this palsy since shortly after . The patient states she was told by her mother that she think she had a stroke when she was a baby. Turns out these all the symptoms and dysarthria are not new. Asked her what is going on tonight and she cannot tell me why she called 911 or what is going on. Previous notes demonstrate that she has psychiatric issues a nd mention of a prolonged grief reaction with hallucinations. Patient's not endorsing any hallucinations tonight. Patient denies suicidal or homicidal ideation. Progress Note #2: Time: 02:17 Progress Note This provider and the patient had 2 more in-depth conversations and the patient could not offer any reason why she was here in the ER, why she called 911 multiple times or how she would be any more safe if she went home now than she was when she was at home calling 911. I suspect the patient has dementia advanced to the point that she is not safe to be at home alone. She probably has the capacity to live in a assisted living home but since this is the second time in the last month that she has been out to the ER for psychiatric/dementia reasons we will reflect our concerns to Dr. Pierre and request an observation stay and have child welfare social worker visit with her in the morning about the safety of her current living status. Patient is okay with staying tonight and meeting with child welfare social worker. Plan to obtain a CT angio Initial ECG Impression Date: Jun 29, 2021 Initial ECG Impression Time: 01:19 Initial ECG Rate: 68 Initial ECG Rhythm: Normal Sinus Initial ECG Intervals: Normal Initial ECG Impression: Normal Initial ECG Comparisson: Unchanged Comment Normal sinus rhythm without clinically relevant ST changes Diagnostic Imaging Diagonstic Imaging: Xray Plain Films/CT/US/NM/MRI: chest Comments Unremarkable 1 view chest. Reviewed: Reviewed by Me Diagonstic Imaging: CT Plain Films/CT/US/NM/MRI: head Comments Normal CT head/brain Reviewed: Reviewed by Me Diagonstic Imaging: CT Plain Films/CT/US/NM/MRI: head (Neck angiogram) Comments Unremarkable CTA of the head. Normal right and 20 to 30% bifurcation proximal ICA disease bilateral. Unremarkable cervical vertebral arteries. Reviewed: Reviewed by Me Departure Communication (Admissions) Time/Spoke to Admitting Phy: 02:00 Discussed the case with Dr. Pierre and she is okay with observing the patient f or encephalopathy/dementia with failure to thrive at home. Impression Primary Impression: Dementia Qualified Codes: F03.91 - Unspecified dementia with behavioral disturbance Additional Impressions: Encephalopathy Failure to thrive in adult Disposition: 09 ADMITTED INPATIENT Condition: Stable Admissions Decision to Admit Reason: Admit from ER (General) Decision to Admit/Date: Jun 29, 2021 Time/Decision to Admit Time: 02:00 Departure-Patient Inst. Referrals: [facility] (PCP/Family) Primary Care Physician AUSTIN KELLER Jun 29, 2021 01:18
[2021-06-29 01:24] LABS: BASOPHILS # (AUTO) 0.1 10^3/uL (0.0-0.1); BASOPHILS % (AUTO) 1 % (0-10); EOSINOPHILS # (AUTO) 0.2 10^3/uL (0.0-0.3); EOSINOPHILS % (AUTO) 2 % (0-10); HEMATOCRIT 43 % (35-52); HEMOGLOBIN 13.6 g/dL (11.5-16.0); LYMPHOCYTES # (AUTO) 2.1 10^3/uL (1.0-4.0); LYMPHOCYTES % (AUTO) 26 % (12-44); MEAN CORPUSCULAR HEMOGLOBIN 31 pg (25-34); MEAN CORPUSCULAR HGB CONC 32 g/dL (32-36); MEAN CORPUSCULAR VOLUME 97 fL (80-99); MEAN PLATELET VOLUME 11.3 fL (9.0-12.2); MONOCYTES # (AUTO) 0.6 10^3/uL (0.0-1.0); MONOCYTES % (AUTO) 8 % (0-12); NEUTROPHILS # (AUTO) 5.1 10^3/uL (1.8-7.8); NEUTROPHILS % (AUTO) 63 % (42-75); PLATELET COUNT 234 10^3/uL (130-400); WHITE BLOOD COUNT 8.1 10^3/uL (4.3-11.0)
[2021-06-29 01:33] LABS: ALBUMIN 3.7 GM/DL (3.2-4.5)
[2021-06-29 01:34] LABS: CHLORIDE 101 MMOL/L (98-107); POTASSIUM 4.2 MMOL/L (3.6-5.0); SODIUM 139 MMOL/L (135-145)
[2021-06-29 01:34] LABS: BILIRUBIN,URINE NEGATIVE (NEGATIVE); CLARITY,URINE CLEAR; COLOR,URINE YELLOW; GLUCOSE, URINE (UA) NEGATIVE (NEGATIVE); KETONES,URINE NEGATIVE (NEGATIVE); LEUKOCYTE ESTERASE ,URINE NEGATIVE (NEGATIVE); NITRITE,URINE NEGATIVE (NEGATIVE); PH,URINE 5.5 (5-9); PROTEIN,URINE NEGATIVE (NEGATIVE)
[2021-06-29 01:35] LABS: CALCIUM 9.6 MG/DL (8.5-10.1)
[2021-06-29 01:36] LABS: FIBRIN DEGRADATION PRODUCTS 0.74 UG/ML (0.00-0.49); GLUCOSE 119 MG/DL (70-105); INR 1.1 (0.8-1.4); PROTHROMBIN TIME PATIENT 14.8 SEC (12.2-14.7); TOTAL PROTEIN 7.7 GM/DL (6.4-8.2)
[2021-06-29 01:37] LABS: CARBON DIOXIDE 27 MMOL/L (21-32)
[2021-06-29 01:38] LABS: BILIRUBIN,TOTAL 0.4 MG/DL (0.1-1.0)
[2021-06-29 01:40] LABS: ALKALINE PHOSPHATASE 114 U/L (40-136); CREATININE SERUM 0.93 MG/DL (0.60-1.30); GFR ESTIMATED 60
[2021-06-29 01:41] LABS: BUN/CREATININE RATIO 17
[2021-06-29 01:43] LABS: BACTERIA,URINE MODERATE /HPF; WBC,URINE 0-2 /HPF
[2021-06-29 01:43] LABS: ALANINE AMINOTRANSFERASE 21 U/L (0-55)
[2021-06-29 01:44] LABS: HYALINE CASTS, URINE 0-2 /LPF; TRIPLE PHOSPHATE CRYSTAL,UR FEW /LPF
[2021-06-29] MEDS ORDERED: NS IV 1000 ML 1,000 ML IV SCH (02:15)
[2021-06-29 03:19] VITALS: BP 151/66
[2021-06-29] MEDS ORDERED: CATHETER FLUSH 10 ML SYR IV PRN (04:00)
[2021-06-29] MEDS ORDERED: ONDANSETRON 4 MG/2 ML (SDV) Z0FRAN IV PRN (04:00)
[2021-06-29] MEDS ORDERED: IBUPROFEN 600 MG (MOTRIN) TAB PO PRN (04:00)
[2021-06-29] MEDS ORDERED: LORazepam 0.5 MG (ATIVAN) TABLET PO PRN (04:00)
[2021-06-29] MEDS ORDERED: ACETAMINOPHEN 325 MG TABLET PO PRN (04:00)
--- NOTE | 2021-06-29 04:19 | Diagnostic Imaging Report ---
PROCEDURE: CT head wo r/o stroke. TECHNIQUE: Multiple contiguous axial images were obtained through the brain without the use of intravenous contrast. Auto Exposure Controls were utilized during the CT exam to meet ALARA standards for radiation dose reduction. INDICATION: "Stroke like symptoms." Study compared 09/21/2019. FINDINGS: There is no intracerebral hemorrhage. No hydrocephalus, edema, mass, mass effect or evidence for an elevation of the intracerebral pressures. The basilar cisterns patent. There is no sulcal effacement. There are no abnormal extra-axial collections. The orbits, sinuses, and calvarium nonacute. IMPRESSION: No hemorrhage, edema, or acute finding identified. No change from prior. Dictated by: Dictated on workstation # [id number]
--- NOTE | 2021-06-29 05:17 | Diagnostic Imaging Report ---
INDICATION: Stroke like symptoms. FINDINGS: Suboptimal lung expansion with crowding in the lung markings, interstitial infiltrates or edema may be present. The heart size itself is not grossly enlarged. There is no significant vascular congestion. No effusion or pneumothorax. IMPRESSION: Some prominence of the interstitial lung markings is exaggerated if not generated by the poor inspiratory volume. No alveolar consolidation, effusion, pneumothorax or overt failure pattern. Dictated by: Dictated on workstation # [id number]
[2021-06-29 05:56] LABS: BASOPHILS # (AUTO) 0.1 10^3/uL (0.0-0.1); BASOPHILS % (AUTO) 1 % (0-10); EOSINOPHILS # (AUTO) 0.2 10^3/uL (0.0-0.3); EOSINOPHILS % (AUTO) 2 % (0-10); HEMATOCRIT 41 % (35-52); HEMOGLOBIN 12.8 g/dL (11.5-16.0); LYMPHOCYTES % (AUTO) 25 % (12-44); MEAN CORPUSCULAR HEMOGLOBIN 30 pg (25-34); MEAN CORPUSCULAR HGB CONC 31 g/dL (32-36); MEAN CORPUSCULAR VOLUME 96 fL (80-99); MEAN PLATELET VOLUME 11.5 fL (9.0-12.2); MONOCYTES # (AUTO) 0.5 10^3/uL (0.0-1.0); MONOCYTES % (AUTO) 6 % (0-12); NEUTROPHILS # (AUTO) 5.1 10^3/uL (1.8-7.8); NEUTROPHILS % (AUTO) 66 % (42-75); PLATELET COUNT 207 10^3/uL (130-400); WHITE BLOOD COUNT 7.8 10^3/uL (4.3-11.0)
[2021-06-29] MEDS: CATHETER FLUSH 10 ML SYR IV SCH ×2 (06:05→14:02)
[2021-06-29 06:14] LABS: CALCIUM 8.9 MG/DL (8.5-10.1)
[2021-06-29 06:18] LABS: CREATININE SERUM 0.76 MG/DL (0.60-1.30)
--- NOTE | 2021-06-29 06:45 | History & Physical-Hospitalist ---
History of Present Illness HPI/Chief Complaint Chief complaint: Altered mental status History of present illness: This is a 70-year-old white female who lives at [facility] who has a past medical history of dementia and mental illness who presented to the ER after calling 911 three separate times yesterday. She was assessed to have no medical issues. Labs remained stable. All meds were restarted. Spoke with RICO her niece in [place] and nurse had a 20-minute conversation with her and her spouse unable to contribute to the conversation due to niece talking continuously and that I spoke with RICO and she talked continuously for 8 minutes talking about more social work and case management issues rather than medical issues that I have assessed her to have no acute issues and ready for discharge. Patient appears to be in need of a snf placement. RICO will pick her up and take her back to [place] today. Source: patient Exam Limitations: no limitations Date Seen 06/29/21 Time Seen by a Provider: 10:30 Attending Physician Verena Pierre DO [facility] Referring Physician Date of Admission Jun 29, 2021 at 02:15 Home Medications & Allergies Home Medications Reviewed patient Home Medication Reconciliation performed by pharmacy medication reconciliations oxygen therapy technician and/or nursing. Patients Allergies have been reviewed. Allergies Allergies Coded Allergies Penicillins (Verified Adverse Reaction, Intermediate, Uticaria, 09/19/11) Past Oxmxpdn-Cretej-Avcnxk Hx Patient Social History Marrital Status: single Employed/Student: unemployed Tobacco Use?: No Smoking Status: Never a Smoker Smokeless Tobacco Frequency: Never a User Use of E-Cig and/or Vaping dev: No Substance use?: No Alcohol Use?: No Pt feels they are or have been: No Immunizations Up To Date Date of Influenza Vaccine: Jun 03, 2011 First/Initial COVID19 Vaccinat: 12/21 Second COVID19 Vaccination Major: 12/21 Tetanus Booster (TDap): Unknown Seasonal Allergies Seasonal Allergies: No Current Status Advance Directives: No Communicates: Verbally Primary Language: Arabic Preferred Spoken Language: Arabic Is interpretation needed?: No Sensory deficits: Hearing impairment Implanted or Applied Medical D: None Past Medical History 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, 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 Arthritis Hypothyroidsim Hearing Impairment: Bilateral Hearing Aide Depression Blood Disorders: No Review of Systems Constitutional: see HPI, malaise, weakness EENTM: no symptoms reported Respiratory: no symptoms reported Cardiovascular: no symptoms reported Gastrointestinal: no symptoms reported Musculoskeletal: no symptoms reported Skin: no symptoms reported Psychiatric/Neurological: Depressed, Other (Confusion) Physical Exam Physical Exam Vital Signs Vital Signs - First Documented 06/29/21 00:59 Temp 36.2 Pulse 81 Resp 16 B/P (MAP) 176/94 (121) Pulse Ox 98 O2 Delivery Room Air Capillary Refill : Less Than 3 Seconds Height, Weight, BMI Height: '" Weight: lbs. oz. kg; 39.00 BMI Method: General Appearance: No Apparent Distress, Chronically ill, Obese Eyes: Right Eye Normal Inspection, Right Eye PERRL HEENT: PERRL/EOMI, Normal ENT Inspection, Pharynx Normal, Moist Mucous Membranes Neck: Full Range of Motion, Normal Inspection, Non Tender Respiratory: Chest Non Tender, Lungs Clear, Normal Breath Sounds, No Accessory Muscle Use, No Respiratory Distress Cardiovascular: Regular Rate, Rhythm, No Edema, No Gallop, No JVD, No Murmur, Normal Peripheral Pulses Gastrointestinal: Normal Bowel Sounds, No Organomegaly, No Pulsatile Mass, Non Tender, Soft Back: Normal Inspection, No CVA Tenderness, No Vertebral Tenderness Extremity: Normal Capillary Refill, Normal Inspection, Normal Range of Motion, Non Tender, No Calf Tenderness, No Pedal Edema Neurologic/Psychiatric: Alert, Oriented x3, No Motor/Sensory Deficits, Normal Mood/Affect, Disoriented (Subtle poor recall) Skin: Normal Color, Warm/Dry Lymphatic: No Adenopathy Results Results/Procedures Labs Laboratory Tests 06/29/21 01:15 06/29/21 05:20 Patient resulted labs reviewed. Assessment/Plan Admission Diagnosis Assessment: Altered mental status History of mental illness Dementia Hypothyroidism Plan: Discharged with DPOA Needs snf placement or assisted living DPOA will speak to critical access hospital on Thursday Admission Status: Observation Diagnosis/Problems Diagnosis/Problems (1) Confusion (2) Failure to thrive in adult Status: Acute (3) Dementia Status: Acute Qualifiers: Dementia type: unspecified type Dementia behavioral disturbance: with behavioral disturbance Qualified Codes: F03.91 - Unspecified dementia with behavioral disturbance (4) Major depressive disorder with psychotic features Status: Acute Clinical Quality Measures Stroke: Date of last known well: Jun 29, 2021 Time of last known well: 00:01 Symptoms onset unknown: Yes VERENA PIERRE DO Jun 29, 2021 06:45
--- NOTE | 2021-06-29 07:27 | Diagnostic Imaging Report ---
EXAMINATION: CT angiography head and neck with and without contrast. TECHNIQUE: After intravenous administration of contrast, thin section axial CT angiography of the head and neck was performed. Source data was reformatted into 3D MIP projections. All CT scans use one or more of the following dose optimizing techniques: automated exposure control, MA and/or KvP adjustment based on a patient size and exam type, or iterative reconstruction. HISTORY: encephalopathy COMPARISON: CT head from 09/21/2019 FINDINGS: The middle cerebral arteries are normal. The posterior cerebral arteries are normal. The anterior cerebral arteries are normal. There is no large vessel occlusion. No aneurysm or vascular malformation seen. The origins of the carotid arteries are normal. There are normal carotid bifurcations bilaterally. Atherosclerotic disease is seen at the bulbs left greater than right with no significant stenosis. The internal carotid arteries appear normal without stenosis aneurysmal dilatation or dissection. Vertebral artery origins are normal. There is no significant stenosis or evidence for occlusion. No vertebral artery dissections. Pearson-white matter differentiation is normal. There is no mass mass effect or midline shift. There is no hydrocephalus. No abnormal enhancing lesions appreciated. No soft tissue abnormality is seen. No osseus lesions or fractures are seen. Limited views of the superior thorax are unremarkable. IMPRESSION: 1. Normal vasculature in the head and neck without large vessel occlusion. Dictated by: Dictated on workstation # [id number]
[2021-06-29 08:00] VITALS: BP 170/72
[2021-06-29] MEDS ORDERED: ARIP2TAB3 PO (10:44)
[2021-06-29] MEDS ORDERED: FLUO10TA PO (10:44)
[2021-06-29] MEDS ORDERED: TRZ50T PO (10:44)
[2021-06-29] MEDS ORDERED: DICY10CA12 PO (10:44)
[2021-06-29 12:43] VITALS: BP 146/77
--- NOTE | 2021-06-29 13:37 | Discharge Summary ---
Discharge Summary Hospital Course Was the Problem List Reviewed?: Yes Problems/Dx: (1) Confusion Hospital Course Date of Admission: Jun 29, 2021 at 02:15 Admission Diagnosis : [facility]: 06/29/21 Discharge Diagnosis: Confusion, mental illness, dementia Hospital Course: Patient had a brief hospital course after she was admitted for safety purposes due to calling 911 three times before bringing her into the ER. Mental illness in addition to dementia precluded her going home alone and her DPOA came to take her back to [place]. Labs and Pending Lab Test: Laboratory Tests 06/29/21 01:00: Glucometer 134H 06/29/21 01:15: White Blood Count 8.1, Red Blood Count 4.46, Hemoglobin 13.6, Hematocrit 43, Mean Corpuscular Volume 97, Mean Corpuscular Hemoglobin 31, Mean Corpuscular Hemoglobin Concent 32, Red Cell Distribution Width 12.3, Platelet Count 234, Mean Platelet Volume 11.3, Immature Granulocyte % (Auto) 0, Neutrophils (%) (Auto) 63, Lymphocytes (%) (Auto) 26, Monocytes (%) (Auto) 8, Eosinophils (%) ( Auto) 2, Basophils (%) (Auto) 1, Neutrophils # (Auto) 5.1, Lymphocytes # (Auto) 2.1, Monocytes # (Auto) 0.6, Eosinophils # (Auto) 0.2, Basophils # (Auto) 0.1, Immature Granulocyte # (Auto) 0.0, Prothrombin Time 14.8H, INR Comment 1.1, Activated Partial Thromboplast Time 28, D-Dimer 0.74H, Sodium Level 139, Potassium Level 4.2, Chloride Level 101, Carbon Dioxide Level 27, Anion Gap 11, Blood Urea Nitrogen 16, Creatinine 0.93, Estimat Glomerular Filtration Rate 60, BUN/Creatinine Ratio 17, Glucose Level 119H, Calcium Level 9.6, Corrected Calcium 9.8, Total Bilirubin 0.4, Aspartate Amino Transf (AST/SGOT) 34, Alanine Aminotransferase (ALT/SGPT) 21, Alkaline Phosphatase 114, Troponin I < 0.028, Total Protein 7.7, Albumin 3.7 06/29/21 01:25: Urine Color YELLOW, Urine Clarity CLEAR, Urine pH 5.5, Urine Specific [place] >=1.030, Urine Protein NEGATIVE, Urine Glucose (UA) NEGATIVE, Urine Ketones NEGATIVE, Urine Nitrite NEGATIVE, Urine Bilirubin NEGATIVE, Urine Urobilinogen 0.2, Urine Leukocyte Esterase NEGATIVE, Urine RBC (Auto) 2+H, Urine RBC 5-10H, Urine WBC 0-2, Urine Squamous Epithelial Cells 5-10, Urine Crystals PRESENTH, Urine Triple Phosphate Crystals FEWH, Urine Bacteria MODERATEH, Urine Casts PRESENT, Urine Hyaline Casts 0-2H, Urine Mucus MODERATEH, Urine Culture Indicated YES 06/29/21 05:20: White Blood Count 7.8, Red Blood Count 4.28, Hemoglobin 12.8, Hematocrit 41, Mean Corpuscular Volume 96, Mean Corpuscular Hemoglobin 30, Mean Corpuscular Hemoglobin Concent 31L, Red Cell Distribution Width 12.2, Platelet Count 207, Mean Platelet Volume 11.5, Immature Granulocyte % (Auto) 0, Neutrophils (%) (Auto) 66, Lymphocytes (%) (Auto) 25, Monocytes (%) (Auto) 6, Eosinophils (%) (Auto) 2, Basophils (%) (Auto) 1, Neutrophils # (Auto) 5.1, Lymphocytes # (Auto) 2.0, Monocytes # (Auto) 0.5, Eosinophils # (Auto) 0.2, Basophils # (Auto) 0.1, Immature Granulocyte # (Auto) 0.0, Sodium Level 138, Potassium Level 4.0, Chloride Level 102, Carbon Dioxide Level 26, Anion Gap 10, Blood Urea Nitrogen 14, Creatinine 0.76, Estimat Glomerular Filtration Rate 75, BUN/Creatinine Ratio 18, Glucose Level 125H, Calcium Level 8.9 Home Meds Active Reported Dicyclomine HCl 10 Mg Capsule 10 Mg PO ACHS Trazodone HCl 50 Mg Tablet 25 Mg PO HS Abilify (Aripiprazole) 2 Mg Tablet 1 Mg PO HS Fluoxetine HCl 10 Mg Tablet 30 Mg PO DAILY Levothyroxine Sodium 112 Mcg Tablet 112 Mcg PO DAILY Lovastatin 20 Mg Tablet 20 Mg PO HS Assessment/Pt Instructions PCP on Thursday Discharge Planning: <30 minutes discharge planning Discharge Instructions Discharge Diet: No Restrictions Activity as Tolerated: Yes Discharge Physical Examination Vital Signs Vital Signs Date Time Temp Pulse Resp B/P (MAP) Pulse Ox O2 Delivery O2 Flow Rate FiO2 06/29/21 12:43 36.4 64 18 146/77 (100) 98 Room Air General Appearance: No Apparent Distress, WD/WN, Chronically ill Allergies: Coded Allergies: Penicillins (Verified Adverse Reaction, Intermediate, Uticaria, 09/19/11) Discharge Summary Date of Admission Jun 29, 2021 at 02:15 Date of Discharge Clinical Quality Measures Stroke: Date of last known well: Jun 29, 2021 Time of last known well: 00:01 Symptoms onset unknown: Yes KALEY MASTERSON DO Jun 29, 2021 13:37
[2021-06-29 15:49] VITALS: BP 149/67
[2021-06-29] MEDS ORDERED: DICYCLOMINE 10 MG (BENTYL) CAP PO SCH (16:00)
[2021-06-29 17:21] VITALS: BP 149/67
[2021-06-29] MEDS ORDERED: SIMvastatin 10 MG (ZOCOR) TAB PO SCH (21:00)
[2021-06-29] MEDS ORDERED: traZODone 50 MG (DESYREL) TAB PO SCH (21:00)
[2021-06-30] MEDS ORDERED: LEVOTHYROXINE 112 MCG (LEVOTHROID) TAB PO SCH (06:30)
[2021-06-30] MEDS ORDERED: FLUoxetine HCL 10 MG (PROzac) CAPSULE/TABLET PO SCH (09:00)
== END 2021-06-29 17:15 | disposition home or self-care (01) ==
LOC: EDUNIT# 00:55 → ER 00:57 → 4TH 02:15
PROVIDERS: ADMIT Internal Medicine; ATTEND Internal Medicine
DX: R41.0 Disorientation, unspecified (principal); E03.9 Hypothyroidism, unspecified; M19.90 Unspecified osteoarthritis, unspecified site; G93.40 Encephalopathy, unspecified; R62.7 Adult failure to thrive; F32.3 Major depressive disorder, single episode, severe with psychotic features; F99 Mental disorder, not otherwise specified; F03.91 Unspecified dementia, unspecified severity, with behavioral disturbance; Z90.710 Acquired absence of both cervix and uterus; Z79.899 Other long term (current) drug therapy; Z79.890 Hormone replacement therapy
CPT/HCPCS: 51702; 70450; 70496; 70498; 71045; 80048; 80053; 81000; 82947; 84484; 85025; 85379; 85610; 85730; 87088; 93005; 93041; 99284; G0378; 36415

== ENCOUNTER → 2022-01-28 | Outpatient (CLI) | payer MEDICARE, MEDICAID ==
[~2022-01-28] MED LIST changes: +ARIP2TAB3 PO; +DICY10CA12 PO
--- NOTE | 2022-01-28 14:30 | Diagnostic Imaging Report ---
CLINICAL INDICATION: Patient states she is having memory problems. EXAM: MRI of the brain performed without IV contrast. Sequences include sagittal T1, axial T2, axial flair, axial gradient echo, DWI, ADC map, and axial T1. COMPARISON: CT angiogram of the head/neck dated 06/29/2021. FINDINGS: There is no evidence of acute cerebral infarct, intracranial hemorrhage, or gross mass effect. The brain parenchymal volume appears appropriate for patient's age. There are multiple focal and patchy areas of high T2 signal white matter changes involving both cerebral hemispheres, likely representing chronic small vessel ischemic disease. There is normal navarro-white matter distinction. There is no significant midline shift or herniation. The [place] vascular structures show no gross abnormality as visualized. The pituitary gland, sella, and suprasellar regions are unremarkable as visualized. There is no evidence of hydrocephalus. The basal cisterns are unremarkable. The skull, extracranial soft tissue, and orbits are unremarkable. There is minimal mucosal thickening involving both maxillary sinuses. Temporal bones show no significant abnormality. IMPRESSION: 1: There is no evidence of acute intracranial process. 2: Age-related brain parenchymal changes including mild chronic small vessel ischemic disease. 3: There is mild paranasal sinus disease. Dictated by: Dictated on workstation # [id number]
--- NOTE | 2022-01-28 15:49 | Diagnostic Imaging Report ---
PROCEDURE: CT abdomen and pelvis without contrast. TECHNIQUE: Multiple contiguous axial images were obtained through the abdomen and pelvis without the use of intravenous contrast. Auto Exposure Controls were utilized during the CT exam to meet ALARA standards for radiation dose reduction. INDICATION: Abdominal pain. No prior studies are available for comparison. Lung bases are clear. Liver is unremarkable. Gallbladder is surgically absent. Pancreas and spleen are unremarkable. No adrenal mass is detected. No definite renal calculi or evidence of hydronephrosis is identified. Aorta is nonaneurysmal. Bowel loops are normal caliber. There is no evidence of bowel obstruction. There is moderate stool in the colon. No free fluid or fluid collection is seen. Bladder and uterus are unremarkable. There is a small fat-containing umbilical hernia. Bony structures are nonacute. There are pars defects at L5-S1 level bilaterally. IMPRESSION: No acute abnormality is identified. Dictated by: Dictated on workstation # [id number]
--- NOTE | 2022-01-28 16:06 | Diagnostic Imaging Report ---
PROCEDURE: US Thyroid. TECHNIQUE: Multiple real-time grayscale images were obtained of the thyroid in various projections. INDICATION: Abnormal lab values. FINDINGS: The right lobe measures 4.3 x 1.6 x 1.3 cm. Left lobe measures 4.2 x 1.8 x 1.6 cm. Both lobes are quite heterogeneous in appearance. No focal nodules are demonstrated. No hypervascularity. IMPRESSION: 1. Mild enlargement of the thyroid with very heterogeneous appearance. No discrete nodules are seen. Dictated by: Dictated on workstation # [id number]
--- NOTE | 2022-01-28 16:19 | Diagnostic Imaging Report ---
Clinical Indication: Patient with carotid bruit. Comparison: CT angiogram of the head and neck dated 06/29/2021. Exam: Real-time ultrasound carotid Doppler duplex imaging is performed bilaterally with multiple real-time grayscale images obtained in various projections. Additional spectral analysis and color Doppler duple images were also obtained. Peak systolic velocity, ICA/CCA peak systolic ratio, spectral analysis, and vascular morphology are studied. Findings: ARTERY VELOCITY Right Left CCA 0.65 m/s 0.81 m/s ICA 0.90 m/s 0.63 m/s ECA 0.62 m/s 0.51 m/s ICA/CCA 1.4 0.8 VERT.ART Antegrade Antegrade There is no significant atherosclerotic disease. Impression: There is no grayscale or Doppler evidence of significant vascular stenosis. Dictated by: Dictated on workstation # [id number]
== END ==
LOC: CARD 11:26
PROVIDERS: ATTEND Family Medicine
DX: G31.1 Senile degeneration of brain, not elsewhere classified (principal); J34.89 Other specified disorders of nose and nasal sinuses; F03.90 Unspecified dementia, unspecified severity, without behavioral disturbance, psychotic disturbance, mood disturbance, and anxiety; E04.9 Nontoxic goiter, unspecified; R01.1 Cardiac murmur, unspecified; R09.89 Other specified symptoms and signs involving the circulatory and respiratory systems; R10.9 Unspecified abdominal pain
CPT/HCPCS: 70551; 74176; 76536; 93306; 93880

== ENCOUNTER 2023-02-03 23:42 | Inpatient (IN) | payer MEDICARE, MEDICAID ==
[~2023-02-03] VITALS: Ht 165 cm; Wt 110.9 kg
[~2023-02-03 23:42] MED LIST changes: -FLUO10TA PO; +FLUO10TA28 PO
[2023-02-03 23:56] LABS: BASOPHILS # (AUTO) 0.1 10^3/uL (0.0-0.1); BASOPHILS % (AUTO) 1 % (0-10); EOSINOPHILS % (AUTO) 0 % (0-10); HEMATOCRIT 40 % (35-52); HEMOGLOBIN 12.7 g/dL (11.5-16.0); LYMPHOCYTES # (AUTO) 2.1 10^3/uL (1.0-4.0); LYMPHOCYTES % (AUTO) 16 % (12-44); MEAN CORPUSCULAR HEMOGLOBIN 30 pg (25-34); MEAN CORPUSCULAR HGB CONC 32 g/dL (32-36); MEAN CORPUSCULAR VOLUME 96 fL (80-99); MONOCYTES # (AUTO) 0.7 10^3/uL (0.0-1.0); MONOCYTES % (AUTO) 6 % (0-12); NEUTROPHILS # (AUTO) 10.3 10^3/uL (1.8-7.8); NEUTROPHILS % (AUTO) 78 % (42-75); PLATELET COUNT 221 10^3/uL (130-400); WHITE BLOOD COUNT 13.2 10^3/uL (4.3-11.0)
[2023-02-04] VITALS (7 sets, daily range): BP systolic 106–147; BP diastolic 64–79
--- NOTE | 2023-02-04 | ED Back Pain ---
General Chief Complaint: Back Problems Stated Complaint: FALL AT HOME Nursing Triage Note: pt presents to ED with c/o low back pain after falling x 2 weeks ago. pt denies hitting head, denies LOC. Source of Information: Patient (EXTREMELY POOR HISTORIAN AND UNABLE TO GIVE ANY SIGNIFICANT INFORMATION. ) History of Present Illness Date Seen by Provider: Feb 03, 2023 Time Seen by Provider: 23:45 Initial Comments PT ARRIVES VIA POV FROM HOME--PT LIVES BY HERSELF, PT CALLED NEIGHBOR AND NEIGHBOR BROUGHT HER HERE NEIGHBOR DOES NOT KNOW MUCH ABOUT PT. ( SHE DID NOT KNOW PT'S LAST NAME ) PT REPORTEDLY FELL 2 WEEKS AGO--DETAILS OF THIS ARE NOT KNOWN, AND UNABLE TO VERIFY ANYTHING. PT IS UNABLE TO STATE ANY DETAILS OF THE FALL. PT C/O LOW BACK PAIN --SHE STATES SHE HAS HAD BACK PAIN FOR YEARS NEIGHBOR HAS REPORTED THAT PT HAS BEEN HAVING DIFFICULTY WALKING FOR UNKNOWN LENGTH OF TIME. PT WITH HISTORY OF DEMENTIA, PER OLD RECORDS NO OTHER INFORMATION IS OBTAINABLE FROM PT ALL HISTORY IS FROM OLD RECORDS. Allergies and Home Medications Allergies Coded Allergies: Penicillins (Verified Adverse Reaction, Intermediate, Uticaria, 09/19/11) Patient Home Medication List Home Medication List Reviewed: Yes Aripiprazole (Aripiprazole) 2 Mg Tablet, 2 MG PO HS, (Reported) Entered as Reported by: PAUL MARTINI on 02/04/231540 Last Action: Continued Dicyclomine HCl (Dicyclomine HCl) 10 Mg Capsule, 10 MG PO , (Reported) Entered as Reported by: JENA ERNANDEZ on 06/29/21 1044 Last Action: Reviewed Fluoxetine HCl (Fluoxetine HCl) 10 Mg Capsule, 10 MG PO 1129, (Reported) Entered as Reported by: PAUL MARTINI on 02/04/231540 Last Action: Continued Fluoxetine HCl (Fluoxetine HCl) 20 Mg Capsule, 20 MG PO 1129, (Reported) Entered as Reported by: PAUL MARTINI on 02/04/231540 Last Action: Continued Levothyroxine Sodium (Levothyroxine Sodium) 125 Mcg Tablet, 125 MCG PO DAILY, (Reported) Entered as Reported by: PAUL MARTINI on 02/04/231540 Last Action: Continued Liothyronine Sodium (Liothyronine Sodium) 5 Mcg Tablet, 10 MCG PO DAILY, (Reported) Entered as Reported by: PAUL MARTINI on 02/04/231540 Last Action: Reviewed Loratadine (Loratadine) 10 Mg Tablet, 10 MG PO 1130, (Reported) Entered as Reported by: PAUL MARTINI on 02/04/231540 Last Action: Reviewed Lovastatin (Lovastatin) 40 Mg Tablet, 40 MG PO HS, (Reported) Entered as Reported by: PAUL MARTINI on 02/04/231540 Last Action: Reviewed Omeprazole (Omeprazole) 40 Mg Capsule.dr, 40 MG PO 1130, (Reported) Entered as Reported by: PAUL MARTINI on 02/04/231540 Last Action: Converted Trazodone HCl (Trazodone HCl) 50 Mg Tablet, 50 MG PO HS, (Reported) Entered as Reported by: JENA ERNANDEZ on 06/29/211043 Last Action: Reviewed Discontinued Medications Aripiprazole (Abilify) 2 Mg Tablet, 1 MG PO HS, (Reported) Discontinued Reason: No Longer Taking Entered as Reported by: JENA ERNANDEZ on 06/29/21 104 Last Action: Discontinued Fluoxetine HCl (Fluoxetine HCl) 10 Mg Tablet, 30 MG PO DAILY, (Reported) Discontinued Reason: No Longer Taking Entered as Reported by: JENA ERNANDEZ on 06/29/211043 Last Action: Discontinued Levothyroxine Sodium (Levothyroxine Sodium) 112 Mcg Tablet, 112 MCG PO DAILY, (Reported) Discontinued Reason: No Longer Taking Entered as Reported by: REX GEORGES on 02/15/20 120 Last Action: Discontinued Lovastatin (Lovastatin) 20 Mg Tablet, 20 MG PO HS, (Reported) Discontinued Reason: No Longer Taking Entered as Reported by: REX GEORGES on 02/15/201200 Last Action: Discontinued Review of Systems Constitutional: no symptoms reported Musculoskeletal: see HPI Psychiatric/Neurological: See HPI Past Gzetjtm-Idihbc-Kwwyup Hx Patient Social History Smoking Status: Unknown if Ever Smoked Smokeless Tobacco Frequency: Unknown if Ever Used Use of E-Cig and/or Vaping dev: Unable to obtain Use of E-Cig and/or Vaping Dani: Unknown if Ever Used Substance use?: Unable to obtain Alcohol Use?: Unable to obtain Immunizations Up To Date Tetanus Booster (TDap): Unknown First/Initial COVID19 Vaccinat: 12/21 Second COVID19 Vaccination Major: 12/21 Third COVID19 Vaccination Date: 12/21 Seasonal Allergies Seasonal Allergies: No Past Medical History Surgeries: Yes Gallbladder, Hysterectomy Respiratory: No Cardiac: Yes High Cholesterol Neurological: Yes (LEFT FACIAL PARALYSIS SINCE , W/SOME DYSARTHRIA/APHASIA, 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) Dementia Reproductive Disorders: No [employer] History: Hysterectomy, Menopausal Genitourinary: No Gastrointestinal: Yes (DYSPHAGIA) Musculoskeletal: Yes Arthritis Endocrine: Yes (OBESITY) Hypothyroidsim HEENT: Yes Hearing Impairment: Hard of Hearing, Bilateral Hearing Aide Cancer: No Psychosocial: Yes (PSYCHOSIS WITH HALLUCINATIONS IN PAST) Depression Integumentary: No Blood Disorders: No Physical Exam Vital Signs Vital Signs - First Documented 02/03/23 23:43 Temp 36.7 Pulse 77 Resp 20 B/P (MAP) 137/61 (86) Pulse Ox 93 O2 Delivery Room Air Capillary Refill : Height, Weight, BMI Height: '" Weight: lbs. oz. 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 SPEECH SLOW AND SOMEWHAT THICK TONGUED. ) Neck: Normal Inspection Cardiovascular: Regular Rate, Rhythm Respiratory: Normal Breath Sounds Gastrointestinal: Non Tender, Soft Extremity: Normal Capillary Refill, Non Tender, Pedal Edema (TRACE-1+ EDEMA BILATERALLY) Neurologic/Psychiatric: Alert (AWAKE BUT SOMEWHAT LETHARGIC), Other (LEFT FACIAL PARALYSIS, WITH SPARING OF FOREHEAD. PT HAS GLOBAL WEAKNESS IN ALL 4 EXTREMITIES AND TRUNK. SPEECH SLIGHTLY SLOW AND SLIGHTLY SLURRED. ) Skin: Normal Color, Warm/Dry; No Rash Progress/Results/Core Measures Results/Orders Lab Results Laboratory Tests Test 02/03/23 00:40 02/03/23 23:47 Range/Units Urine Color YELLOW Urine Clarity CLEAR Urine pH 7.0 5-9 Urine Specific [place] 1.015 L 1.016-1.022 Urine Protein TRACE H NEGATIVE Urine Glucose (UA) NEGATIVE NEGATIVE Urine Ketones NEGATIVE NEGATIVE Urine Nitrite NEGATIVE NEGATIVE Urine Bilirubin NEGATIVE NEGATIVE Urine Urobilinogen 1.0 < = 1.0 MG/DL Urine Leukocyte Esterase NEGATIVE NEGATIVE Urine RBC (Auto) NEGATIVE NEGATIVE Urine RBC NONE /HPF Urine WBC 0-2 /HPF Urine Squamous Epithelial Cells 5-10 /HPF Urine Crystals NONE /LPF Urine Bacteria TRACE /HPF Urine Casts PRESENT /LPF Urine Hyaline Casts 0-2 H /LPF Urine Mucus MODERATE H /LPF Urine Culture Indicated NO White Blood Count 13.2 H 4.3-11.0 10^3/uL Red Blood Count 4.18 3.80-5.11 10^6/uL Hemoglobin 12.7 11.5-16.0 g/dL Hematocrit 40 35-52 % Mean Corpuscular Volume 96 80-99 fL Mean Corpuscular Hemoglobin 30 25-34 pg Mean Corpuscular Hemoglobin Concent 32 32-36 g/dL Red Cell Distribution Width 12.6 10.0-14.5 % Platelet Count 221 130-400 10^3/uL Mean Platelet Volume 11.0 9.0-12.2 fL Immature Granulocyte % (Auto) 0 % Neutrophils (%) (Auto) 78 H 42-75 % Lymphocytes (%) (Auto) 16 12-44 % Monocytes (%) (Auto) 6 0-12 % Eosinophils (%) (Auto) 0 0-10 % Basophils (%) (Auto) 1 0-10 % Neutrophils # (Auto) 10.3 H 1.8-7.8 10^3/uL Lymphocytes # (Auto) 2.1 1.0-4.0 10^3/uL Monocytes # (Auto) 0.7 0.0-1.0 10^3/uL Eosinophils # (Auto) 0.0 0.0-0.3 10^3/uL Basophils # (Auto) 0.1 0.0-0.1 10^3/uL Immature Granulocyte # (Auto) 0.1 0.0-0.1 10^3/uL Prothrombin Time 16.1 H 12.2-14.7 SEC INR Comment 1.3 0.8-1.4 Activated Partial Thromboplast Time 30 24-35 SEC Sodium Level 138 135-145 MMOL/L Potassium Level 4.1 3.6-5.0 MMOL/L Chloride Level 102 98-107 MMOL/L Carbon Dioxide Level 23 21-32 MMOL/L Anion Gap 13 5-14 MMOL/L Blood Urea Nitrogen 12 7-18 MG/DL Creatinine 0.88 0.60-1.30 MG/DL Estimat Glomerular Filtration Rate 70 BUN/Creatinine Ratio 14 Glucose Level 126 H 70-105 MG/DL Calcium Level 9.5 8.5-10.1 MG/DL Corrected Calcium 9.8 8.5-10.1 MG/DL Magnesium Level 1.7 1.6-2.4 MG/DL Total Bilirubin 0.9 0.1-1.0 MG/DL Aspartate Amino Transf (AST/SGOT) 29 5-34 U/L Alanine Aminotransferase (ALT/SGPT) 14 0-55 U/L Alkaline Phosphatase 137 H 40-136 U/L Troponin I < 0.028 <0.028 NG/ML Total Protein 7.9 6.4-8.2 GM/DL Albumin 3.6 3.2-4.5 GM/DL Free Thyroxine 1.17 0.70-1.48 NG/DL TSH [place] Testing 5.53 H 0.35-4.94 UIU/ML My Orders Orders - RADHA POLK DO Ed Iv/Invasive Line Start (02/03/23 23:48) Ekg Tracing (02/03/23 23:48) Monitor-Rhythm Ecg Trace Only (02/03/23 23:48) Straight Cath For Spec.-Adult (02/03/23 23:48) Cbc With Automated Diff (02/03/23 23:48) Comprehensive Metabolic Panel (02/03/23 23:48) Magnesium (02/03/23 23:48) Protime With Inr (02/03/23 23:48) Partial Thromboplastin Time (02/03/23 23:48) Ua Culture If Indicated (02/03/23 23:48) Troponin I [place] (02/03/23 23:48) Thyroid Analyzer (02/03/23 23:50) Ct Head/Cervical Spine Wo (02/04/23 00:01) Chest 1 View, Ap/Pa Only (02/04/23 00:01) Pelvis 1 To 2 Views (02/04/23 00:01) Ct Thoracic/Lumbar Spine Wo (02/04/23 00:01) Free T4 (Free Thyroxine) (02/03/23 23:47) Vital Signs/I&O 02/03/23 02/04/23 23:43 01:47 Temp 36.7 Pulse 77 70 Resp 20 20 B/P (MAP) 137/61 (86) 137/61 Pulse Ox 93 96 O2 Delivery Room Air Room Air Blood Pressure Mean: 86 Progress Progress Note : Progress Note VITALS STABLE NO DETERIORATION IN PT'S CONDITION DURING ER STAY LABS INCLUDING CBC, CMP, TROPONIN, UA, WELL EKG, CXR, PELVIS XRAY AND CT SCANS OF HEAD AND SPINE ORDERED NO ACUTE TRAUMATIC INJURY NOTED ON ANY RADIOGRAPHICAL STUDIES EKG IS UNREMARKABLE LABS UNREMARKABLE, OTHER THAN TSH ELEVATED TO 5.53 PT DOES NOT VOICE ANY COMPLAINTS DURING ER STAY, BUT SHE IS NOT TALKING MUCH AT ALL THROUGHOUT ER STAY PT'S NEIGHBOR IS LATER IN ROOM WITH PT. SHE HAS PT'S NIECE'S INFORMATION, AND NIECE IS DPOA. NEIGHBOR REPORTS THAT NIECE IS CURRENTLY IN [place] AND WILL BE THERE FOR UNKNOWN LENGTH OF TIME. SHE WAS ADVISED THAT NIECE NEEDS TO CALL THE HOSPITAL. ATTEMPTED TO CONTACT NIECE, BUT NO ANSWER AT THIS TIME. REVIEWED PRIOR RECORDS, INCLUDING ER VISITS, ADMITS/H&P'S/CONSULTS/DISCHARGE SUMMARIES, TESTS/PROCEDURES DISCUSSED TEST RESULTS, NEED FOR ADMIT AND PT IS AGREEABLE. Initial ECG Impression Date: Feb 04, 2023 Initial ECG Impression Time: 00:47 Initial ECG Rate: 75 Initial ECG Rhythm: Normal Sinus Initial ECG Intervals: Normal Initial ECG Impression: Normal Initial ECG Comparisson: Unchanged Comment INTERPRETED BY ME Diagnostic Imaging Comments CXR--NO ACUTE PROCESS, POOR INSPIRATION--PENDING RADIOLOGIST REVIEW PELVIS--NO ACUTE PROCESS, PENDING RADIOLOGIST REVIEW CT HEAD/CERVICAL SPINE--PER [facility] VIA FAX AT 0118 -SEVERAL LESS THAN 1 CM LOW DENSITIES IN BASAL GANGLIA BILATERALLY, CONSISTENT WITH OLD LACUNAR INFARCTS. -BRAIN IS OTHERWISE UNREMARKABLE -NO ACUTE LARGE VESSEL INFARCT OR INTRACRANIAL HEMORRHAGE -MODERATE MULTILEVEL DEGENERATIVE DISC DISEASE AND FACET ARTHROSIS THROUGHOUT CERVICAL SPINE. -NO ACUTE FRACTURE OR TRAUMATIC SUBLUXATION IS SEEN CT THORACIC/LUMBAR SPINE--PER [facility] VIA FAX AT 0118] -NO ACUTE COMPRESSION FRACTURE OF BURST FRACTURE IS SEEN IN THORACIC SPINE -MULTILEVEL DEGENERATIVE DISC DISEASE THROUGHOUT ENTIRE THORACIC SPINE. -NO FOCAL DISC HERNIATION OR SIGNIFICANT SPINAL CANAL STENOSIS -NO ACUTE COMPRESSION FRACTURE OR BURST FRACTURE IS SEEN IN LUMBAR SPINE -MULTILEVEL DEGENERATIVE DISC DISEASE THROUGHOUT ENTIRE LUMBAR SPIN -NO FOCAL DISC HERNIATEION OR SIGNIFICANT SPINAL CANAL STENOSIS -CHRONIC PARS DEFECTS AT L54 WITHOUT SPONDYLOLISTHESIS Reviewed: Reviewed by Me Departure Communication (Admissions) 0118--SPOKE WITH DR. MÉNDEZ, HOSPITALIST FOR [facility]. ACCEPTS PT FOR ADMIT. Impression Primary Impression: Weakness generalized Additional Impressions: Unwitnessed fall Back pain Impaired mobility Dementia INABILITY TO CARE FOR SELF Hypothyroidism Obesity Disposition: ADMITTED INPATIENT Condition: Stable Admissions Decision to Admit Reason: Admit from ER (General) Decision to Admit/Date: Feb 04, 2023 Time/Decision to Admit Time: 01:20 Departure-Patient Inst. Referrals: [facility] (PCP/Family) Primary Care Physician RADHA POLK DO Feb 04, 2023 00:00
[2023-02-04 00:07] LABS: ALBUMIN 3.6 GM/DL (3.2-4.5)
[2023-02-04 00:08] LABS: CHLORIDE 102 MMOL/L (98-107); POTASSIUM 4.1 MMOL/L (3.6-5.0); SODIUM 138 MMOL/L (135-145)
[2023-02-04 00:09] LABS: CALCIUM 9.5 MG/DL (8.5-10.1); INR 1.3 (0.8-1.4); PROTHROMBIN TIME PATIENT 16.1 SEC (12.2-14.7)
[2023-02-04 00:10] LABS: GLUCOSE 126 MG/DL (70-105); TOTAL PROTEIN 7.9 GM/DL (6.4-8.2)
[2023-02-04 00:11] LABS: CARBON DIOXIDE 23 MMOL/L (21-32)
[2023-02-04 00:12] LABS: BILIRUBIN,TOTAL 0.9 MG/DL (0.1-1.0)
[2023-02-04 00:13] LABS: ALKALINE PHOSPHATASE 137 U/L (40-136)
[2023-02-04 00:14] LABS: CREATININE SERUM 0.88 MG/DL (0.60-1.30); GFR ESTIMATED 70
[2023-02-04 00:15] LABS: BUN/CREATININE RATIO 14
[2023-02-04 00:16] LABS: ALANINE AMINOTRANSFERASE 14 U/L (0-55); MAGNESIUM 1.7 MG/DL (1.6-2.4)
[2023-02-04 00:37] LABS: TSH (THYROID ANALYZER) 5.53 UIU/ML (0.35-4.94)
[2023-02-04 00:46] LABS: BILIRUBIN,URINE NEGATIVE (NEGATIVE); CLARITY,URINE CLEAR; COLOR,URINE YELLOW; GLUCOSE, URINE (UA) NEGATIVE (NEGATIVE); KETONES,URINE NEGATIVE (NEGATIVE); LEUKOCYTE ESTERASE ,URINE NEGATIVE (NEGATIVE); NITRITE,URINE NEGATIVE (NEGATIVE); PROTEIN,URINE TRACE (NEGATIVE)
[2023-02-04 00:59] LABS: BACTERIA,URINE TRACE /HPF; HYALINE CASTS, URINE 0-2 /LPF; WBC,URINE 0-2 /HPF
[2023-02-04 01:15] LABS: FREE T4 (FREE THYROXINE) 1.17 NG/DL (0.70-1.48)
[2023-02-04] MEDS ORDERED: ONDANSETRON 4 MG/2 ML (SDV) Z0FRAN IV PRN (03:15)
[2023-02-04 05:02] LABS: BASOPHILS # (AUTO) 0.1 10^3/uL (0.0-0.1); BASOPHILS % (AUTO) 1 % (0-10); EOSINOPHILS % (AUTO) 0 % (0-10); HEMATOCRIT 37 % (35-52); HEMOGLOBIN 11.7 g/dL (11.5-16.0); LYMPHOCYTES # (AUTO) 2.1 10^3/uL (1.0-4.0); LYMPHOCYTES % (AUTO) 20 % (12-44); MEAN CORPUSCULAR HEMOGLOBIN 31 pg (25-34); MEAN CORPUSCULAR HGB CONC 32 g/dL (32-36); MEAN CORPUSCULAR VOLUME 96 fL (80-99); MONOCYTES # (AUTO) 0.7 10^3/uL (0.0-1.0); MONOCYTES % (AUTO) 6 % (0-12); NEUTROPHILS # (AUTO) 7.5 10^3/uL (1.8-7.8); NEUTROPHILS % (AUTO) 72 % (42-75); PLATELET COUNT 177 10^3/uL (130-400); WHITE BLOOD COUNT 10.4 10^3/uL (4.3-11.0)
[2023-02-04 05:19] LABS: CALCIUM 8.9 MG/DL (8.5-10.1)
[2023-02-04 05:23] LABS: CREATININE SERUM 0.79 MG/DL (0.60-1.30)
[2023-02-04] MEDS: CATHETER FLUSH 10 ML SYR IVP SCH ×3 (06:06→20:16)
[2023-02-04] MEDS: ACETAMINOPHEN 500 MG TAB (TYLENOL) PO PRN (06:39)
--- NOTE | 2023-02-04 06:58 | Diagnostic Imaging Report ---
PROCEDURE: CT head and CT cervical spine without contrast. TECHNIQUE: Multiple contiguous axial images were obtained through the brain and cervical spine without the use of intravenous contrast. Sagittal and coronal reformations through the cervical spine were then performed. Auto Exposure Controls were utilized during the CT exam to meet ALARA standards for radiation dose reduction. INDICATION: Headache and neck pain after fall. COMPARISON: CT of the head on 06/29/2021. FINDINGS: Chronic lacunar infarcts within the bilateral basal ganglia.. No intra- or extra-axial mass or fluid collection. No acute hemorrhage. The ventricles are normal in size, shape, and morphology. The navarro-white matter junction is normal. The subarachnoid cisterns are patent. The visualized paranasal sinuses are normal. The visualized portions of the orbits and globes are normal. The mastoid air cells are clear. The administration professional topogram shows no lytic lesion or fracture. There is straightening of the cervical lordosis. Moderate to severe multilevel degenerative changes of the cervical spine. Multilevel facet arthritis. No acute fracture dislocation. No lytic or sclerotic bone lesion. No high-density fluid within the spinal canal. Mild multilevel spinal canal and neural foraminal stenosis due to degenerative change. Included lung apices are normal. Impression: No acute intracranial process. No acute fracture or dislocation of the cervical spine. Dictated by: Dictated on workstation # [id number]
--- NOTE | 2023-02-04 07:12 | Diagnostic Imaging Report ---
Indication: Pain. Findings: AP pelvis performed showed no identifiable fracture or dislocation. No symphyseal or SI joint diastases. There are arthritic changes to the hips, lower lumbar spine and pubic symphysis. Impression: No fracture deformity or acute injury apparent at AP pelvis with chronic degenerative change noted. Dictated by: Dictated on workstation # [id number]
--- NOTE | 2023-02-04 07:14 | Diagnostic Imaging Report ---
INDICATION: Fall COMPARISON: 06/29/2021 FINDINGS: The lungs clear. No failure, effusion or pneumothorax. IMPRESSION: No acute appearing abnormality. Dictated by: Dictated on workstation # [id number]
--- NOTE | 2023-02-04 07:53 | Diagnostic Imaging Report ---
PROCEDURE: CT thoracic and lumbar spine without contrast. TECHNIQUE: Multiple contiguous axial images were obtained through the thoracic and lumbar spine without the use of intravenous contrast. Sagittal and coronal reformations were then performed. All CT scans use one or more of the following dose optimizing techniques: automated exposure control, MA and/or KvP adjustment based on a patient size and exam type, or iterative reconstruction. INDICATION: Low back pain. No relevant comparison. T-spine: Thoracic stature is normal. There is degenerative changes to the discs, endplates and facets throughout the thoracic spine but no fracture or paraspinal hemorrhage. No substantial degree of thoracic spinal canal stenosis. No traumatic disc space widening. No facet dislocation. The visible posterior ribs segments intact. No demonstrated pneumothorax or hemothorax within the visible chest. Lumbar spine: Well-corticated chronic L5 spondylolysis defects present but no listhesis. The lumbar statures are normal. Their alignment anatomic throughout. No paraspinal hemorrhage. No acute fracture. There are degenerative changes to the discs, endplates and facets chronic. IMPRESSION: 1. Thoracolumbar spondylosis without acute fracture or traumatic malalignment. No substantial canal stenosis. 2. Chronic bilateral L5 spondylolysis defects without slip. Dictated by: Dictated on workstation # [id number]
--- NOTE | 2023-02-04 10:11 | Physical Therapy Evaluation ---
PT Evaluation-General Medical Diagnosis Admission Date Feb 04, 2023 at 01:50 Medical Diagnosis: Weakness; falls Onset Date: Feb 03, 2023 Therapy Diagnosis Therapy Diagnosis: impaired mobility Precautions Precautions/Isolations: Standard Precautions Weight Bear Status Right Lower Extremity: Right Weight Bearing/Tolerated Left Lower Extremity: Left Weight Bearing/Tolerated Referral Physician: Yojana Musa Reason for Referral: Evaluation/Treatment Medical History Additional Medical History Falls, Dementia, Back pain, chronic dysphagia Social History Home: Apartment Current Living Status: Alone Entry Into Home: Elevator Resides at the [facility] Prior Prior Level of Function SCALE: Activities may be completed with or without assistive devices. 4-Qsujirezbj-yopztke completes the activity by him/herself with no assistance from a helper. 5-Set-up or Clean-up Assistance-helper sets up or cleans up; patient completes activity. [place] assists only prior to or following the activity. 4-Supervision or Touching Assistance-helper provides verbal cues and/or touching/steadying and/or contact guard assistance as patient completes activity. Assistance may be provided throughout the activity or intermittently. 3-Partial/Moderate Assistance-helper does LESS THAN HALF the effort. [place] lifts, holds or supports trunk or limbs, but provides less than half the effort. 2-Substantial/Maximal Assistance-helper does MORE THAN HALF the effort. [place] lifts or holds trunk or limbs and provides more than half the effort. 1-Fbzmgnxea-wioisj does ALL the effort. Patient does none of the effort to complete the activity. Or, the assistance of 2 or more helpers is required for the patient to complete the activity. If activity was not attempted, code reason: 7-Patient Refused. 9-Not Applicable-not attempted and the patient did not perform the activity before the current illness, exacerbation or injury. 10-Not Attempted due to Environmental Limitations-(lack of equipment, weather restraints, etc.). 88-Not Attempted due to Medical Conditions or Safety Concerns. Bed Mobility: 6 Transfers (B,C,W/C): 6 Gait: 6 PT Evaluation-Current Subjective Pt reports she is having pain in the right hip and gluteal area. Pain rated 4/10 and increases with walking. Pain Numeric Pain Scale: 4 Location: Right Location Body Site: Pelvic Pain Description: Ache ROM/Strength ROM Lower Extremities left 4+/5 throughout, right lower extremity 4/5 Integumentary/Posture Bowel Incontinence: Yes Bladder Incontinence: Yes Sensory Vision: Wears Glasses Hearing: Functional Transfers Lying to Sitting/Side of Bed(Q: 4 Sit to Stand (QC): 4 steadying assist upon initial standing; needed Minimal assist to get the right leg positioned in bed Gait Does the Patient Walk?: Yes Mode of Locomotion: Walk Anticipated Mode of Locomotion: Walk Distance: 100 Gait Assistive Device: FWW Comments/Gait Description Ambulate 100ft with FWW and Min A for guidance and balance. Needed cues for walker safety. Pt very slow with primary complaint being right gluteal pain 11/10. Balance Sitting Static: Good Sitting Dynamic: Good Standing Static: Fair Standing Dynamic: Poor Assessment/Needs Pt is unsteady on her feet and is a risk for falls. It is likely a condition that existed prior to this admission. Pt will benefit from PT to work on ambulation and transfer safety as well as generalized strengthening. Rehab Potential: Fair PT Admissions Clinician Goals Usp Goals PT Usp Goals Time Frame: Feb 06, 2023 Roll Left & Right (QC): 6 Sit to Lying (QC): 6 Lying-Sitting on Side/Bed(QC): 6 Sit to Stand (QC): 6 Walk 150 ft (QC): 6 PT Plan Problem List Problem List: Activity Tolerance, Balance, Gait, Transfer Treatment/Plan Treatment Plan: Continue Plan of Care Treatment Duration: Feb 06, 2023 Frequency: 5 times per week Estimated Hrs Per Day: .25 hour per day Patient and/or Family Agrees t: Yes Time Time In: 0930 Time Out: 1000 DATE: Feb 04, 2023 Total Billed Treatment Time: 30 Total Billed Treatment visit, Evaluation Moderate Complexity 25 min DAINA CAMACHO PT Feb 04, 2023 10:11
[2023-02-04] MEDS ORDERED: LORA10TA7 PO (15:41)
[2023-02-04] MEDS ORDERED: FLUO20CA48 PO (15:41)
[2023-02-04] MEDS ORDERED: FLUO10CA33 PO (15:41)
[2023-02-04] MEDS ORDERED: OMEP40CA6 PO (15:41)
[2023-02-04] MEDS ORDERED: LOVA40TA2 PO (15:41)
[2023-02-04] MEDS ORDERED: LIOT5TAB10 PO (15:41)
[2023-02-04] MEDS ORDERED: LEVO125T6 PO (15:41)
[2023-02-04] MEDS ORDERED: ARIP2TAB20 PO (15:41)
--- NOTE | 2023-02-04 17:33 | History & Physical ---
HPI History of Present Illness: 72 yo F that lives at home alone. States that she has fallen a couple of times in the last few weeks and now having increased back pain. She denies hitting her head. Today states that her back is feeling better. She has not been up with PT yet. Spoke with her about d/c plans and she refusing to go to SNF. She would li ke to go home. Her family plans on her going into assisted living in April. Tolerating PO diet. Source: patient Exam Limitations: no limitations Date seen by provider: Feb 04, 2023 Time Seen by Provider: 10:05 Attending Physician [facility] PCP Admitting Physician: Yojana Musa MD Attending Physician: Yojana Musa MD Consult Date of Admission Feb 04, 2023 at 01:50 Home Medications Home Medications Reviewed patient Home Medication Reconciliation performed by pharmacy medication reconciliations machines technician and/or nursing. Patients Allergies have been reviewed. Allergies Coded Allergies: Penicillins (Verified Adverse Reaction, Intermediate, Uticaria, 09/19/11) CVI-Txjjxh-Hhglwz Hx Patient Social History Living Status: home alone with paid caregiver 1x per week Smoking Status: Unknown if Ever Smoked 2nd Hand Smoke Exposure: No Recent Hopitalizations: No Alcohol Use?: No Immunizations Up To Date Tetanus Booster (TDap): Unknown First/Initial COVID19 Vaccinat: 12/21 Second COVID19 Vaccination Major: 12/21 Third COVID19 Vaccination Date: 12/21 Past Medical History Dementia Hypothyroidism Family Medical History Significant Family History: No Pertinent Family Hx Review of Systems (CHC) Constitutional: No chills, No fever; weakness EENTM: no symptoms reported Respiratory: no symptoms reported; No cough, No dyspnea on exertion, No short of breath Cardiovascular: no symptoms reported; No chest pain, No edema, No palpitations Gastrointestinal: no symptoms reported; No abdominal pain, No constipation, No diarrhea, No nausea, No vomiting Genitourinary: no symptoms reported Musculoskeletal: back pain, muscle pain Skin: no symptoms reported Psychiatric/Neurological: Other (Pleasantly demented) Reviewed Test Results Reviewed Test Results Lab Laboratory Tests Test 02/03/23 23:47 02/04/23 04:50 Range/Units White Blood Count 13.2 H 10.4 4.3-11.0 10^3/uL Red Blood Count 4.18 3.83 3.80-5.11 10^6/uL Hemoglobin 12.7 11.7 11.5-16.0 g/dL Hematocrit 40 37 35-52 % Mean Corpuscular Volume 96 96 80-99 fL Mean Corpuscular Hemoglobin 30 31 25-34 pg Mean Corpuscular Hemoglobin Concent 32 32 32-36 g/dL Red Cell Distribution Width 12.6 12.8 10.0-14.5 % Platelet Count 221 177 130-400 10^3/uL Mean Platelet Volume 11.0 11.0 9.0-12.2 fL Immature Granulocyte % (Auto) 0 0 % Neutrophils (%) (Auto) 78 H 72 42-75 % Lymphocytes (%) (Auto) 16 20 12-44 % Monocytes (%) (Auto) 6 6 0-12 % Eosinophils (%) (Auto) 0 0 0-10 % Basophils (%) (Auto) 1 1 0-10 % Neutrophils # (Auto) 10.3 H 7.5 1.8-7.8 10^3/uL Lymphocytes # (Auto) 2.1 2.1 1.0-4.0 10^3/uL Monocytes # (Auto) 0.7 0.7 0.0-1.0 10^3/uL Eosinophils # (Auto) 0.0 0.0 0.0-0.3 10^3/uL Basophils # (Auto) 0.1 0.1 0.0-0.1 10^3/uL Immature Granulocyte # (Auto) 0.1 0.0 0.0-0.1 10^3/uL Prothrombin Time 16.1 H 12.2-14.7 SEC INR Comment 1.3 0.8-1.4 Activated Partial Thromboplast Time 30 24-35 SEC Sodium Level 138 138 135-145 MMOL/L Potassium Level 4.1 4.0 3.6-5.0 MMOL/L Chloride Level 102 103 98-107 MMOL/L Carbon Dioxide Level 23 26 21-32 MMOL/L Anion Gap 13 9 5-14 MMOL/L Blood Urea Nitrogen 12 11 7-18 MG/DL Creatinine 0.88 0.79 0.60-1.30 MG/DL Estimat Glomerular Filtration Rate 70 79 BUN/Creatinine Ratio 14 14 Glucose Level 126 H 111 H 70-105 MG/DL Calcium Level 9.5 8.9 8.5-10.1 MG/DL Corrected Calcium 9.8 8.5-10.1 MG/DL Magnesium Level 1.7 1.6-2.4 MG/DL Total Bilirubin 0.9 0.1-1.0 MG/DL Aspartate Amino Transf (AST/SGOT) 29 5-34 U/L Alanine Aminotransferase (ALT/SGPT) 14 0-55 U/L Alkaline Phosphatase 137 H 40-136 U/L Troponin I < 0.028 <0.028 NG/ML Total Protein 7.9 6.4-8.2 GM/DL Albumin 3.6 3.2-4.5 GM/DL Free Thyroxine 1.17 0.70-1.48 NG/DL TSH [place] Testing 5.53 H 0.35-4.94 UIU/ML Physical Exam-(CHC) Physical Exam Vital Signs VS - Last 72 Hours, by Label 02/03/23 02/04/23 02/04/23 02/04/23 23:43 01:47 02:16 02:27 Temp 36.7 36.3 Pulse 77 70 76 Resp 20 20 18 B/P (MAP) 137/61 (86) 137/61 140/64 (89) Pulse Ox 93 96 97 97 O2 Delivery Room Air Room Air OxyMask Room Air 02/04/23 02/04/23 02/04/23 02/04/23 03:29 03:56 07:36 08:35 Temp 36.2 Pulse 67 64 57 Resp 16 B/P (MAP) 124/76 (92) Pulse Ox 97 O2 Delivery Room Air Room Air 02/04/23 02/04/23 02/04/23 02/04/23 08:49 11:06 12:20 16:16 Temp 36.1 36.3 36.4 Pulse 64 62 57 61 Resp 20 19 17 B/P (MAP) 106/65 (79) 117/79 (92) 147/65 (92) Pulse Ox 95 96 98 O2 Delivery Room Air Room Air Room Air Capillary Refill : General Appearance: WD/WN, no apparent distress HEENT: PERRL/EOMI Neck: non-tender, supple Respiratory: chest non-tender, lungs clear, no respiratory distress, no accessory muscle use Cardiovascular: regular rate, rhythm, no murmur Gastrointestinal: normal bowel sounds, non tender, soft Back: no CVA tenderness, vertebral tenderness Extremities: normal range of motion, no pedal edema, no calf tenderness, normal capillary refill Neurologic/Psychiatric: senior manufacturing technician II-XII nml as tested, alert Skin: normal color, warm/dry Lymphatic: no adenopathy Assessment/Plan Assessment/Plan Admission Status: Inpatient Order (span 2 midnights) Reason for Inpatient Admission: High fall risk and high risk for decompenstation (1) Weakness generalized Status: Acute Assessment & Plan: -PT/OT, recommended placement but patient and daughter would like for her to go home, will plan on HH (2) Unwitnessed fall Status: Acute Assessment & Plan: - No acute injuries (3) Dementia Status: Chronic Qualifiers: Qualified Codes: F03.A0 - Unspecified dementia, mild, without behavioral disturbance, psychotic disturbance, mood disturbance, and anxiety (4) Hypothyroidism Status: Chronic Assessment & Plan: - Continue home replacement Qualifiers: Qualified Codes: E03.9 - Hypothyroidism, unspecified (5) Major depressive disorder with psychotic features Status: Acute Assessment & Plan: - Restart home meds SAMIR BHATTI MD Feb 04, 2023 17:33
[2023-02-05 03:56] VITALS: BP 148/81
[2023-02-05 05:25] LABS: BASOPHILS # (AUTO) 0.1 10^3/uL (0.0-0.1); BASOPHILS % (AUTO) 1 % (0-10); EOSINOPHILS # (AUTO) 0.2 10^3/uL (0.0-0.3); EOSINOPHILS % (AUTO) 2 % (0-10); HEMATOCRIT 39 % (35-52); HEMOGLOBIN 12.6 g/dL (11.5-16.0); LYMPHOCYTES # (AUTO) 2.5 10^3/uL (1.0-4.0); LYMPHOCYTES % (AUTO) 24 % (12-44); MEAN CORPUSCULAR HEMOGLOBIN 30 pg (25-34); MEAN CORPUSCULAR HGB CONC 32 g/dL (32-36); MEAN CORPUSCULAR VOLUME 95 fL (80-99); MEAN PLATELET VOLUME 11.1 fL (9.0-12.2); MONOCYTES # (AUTO) 0.4 10^3/uL (0.0-1.0); MONOCYTES % (AUTO) 4 % (0-12); NEUTROPHILS % (AUTO) 69 % (42-75); PLATELET COUNT 199 10^3/uL (130-400); WHITE BLOOD COUNT 10.2 10^3/uL (4.3-11.0)
[2023-02-05] MEDS: LEVOTHYROXINE 125 MCG (LEVOTHROID) TABLET PO SCH (05:31)
[2023-02-05] MEDS: CATHETER FLUSH 10 ML SYR IVP SCH ×3 (05:31→19:22)
[2023-02-05 05:36] LABS: CALCIUM 9.4 MG/DL (8.5-10.1)
[2023-02-05 05:40] LABS: CREATININE SERUM 0.78 MG/DL (0.60-1.30)
[2023-02-05 07:36] VITALS: BP 133/79
[2023-02-05] MEDS: ACETAMINOPHEN 500 MG TAB (TYLENOL) PO PRN (09:47)
[2023-02-05] MEDS: PANTOPRAZOLE 40 MG (PROTONIX) TAB PO SCH (11:28)
[2023-02-05] MEDS: FLUoxetine HCL 20 MG (PROzac) CAP PO SCH (11:28)
[2023-02-05] MEDS: FLUoxetine HCL 10 MG (PROzac) CAPSULE/TABLET PO SCH (11:28)
[2023-02-05 11:30] VITALS: BP 122/76
[2023-02-05] MEDS ORDERED: NON-FORMULARY MEDICATION 1 EA EA (Omeprazole 40 MG) PO SCH (11:30)
--- NOTE | 2023-02-05 12:16 | Physical Therapy Daily Note ---
PT Daily Note-Current Subjective Pt found lying in bed upon entry. Agreed to PT. Reports pain in R hip pre- treatment. Pt states that she feels pretty fatigued today. Pain Section J - Health Conditions 1. Rarely or not at all 2. Occasionally 3. Frequently 4. Almost constantly 8. Unable to answer Pain Effect on Sleep: 1 Pain Interference with Therapy: 1 Pain Interference w/Day-to-Day: 1 Mental Status Patient Orientation: Person Transfers SCALE: Activities may be completed with or without assistive devices. 6-Jkmmqihtzk-lluedqp completes the activity by him/herself with no assistance from a helper. 5-Set-up or Clean-up Assistance-helper sets up or cleans up; patient completes activity. [place] assists only prior to or following the activity. 4-Supervision or Touching Assistance-helper provides verbal cues and/or touching/steadying and/or contact guard assistance as patient completes activity. Assistance may be provided throughout the activity or intermittently. 3-Partial/Moderate Assistance-helper does LESS THAN HALF the effort. [place] lifts, holds or supports trunk or limbs, but provides less than half the effort. 2-Substantial/Maximal Assistance-helper does MORE THAN HALF the effort. [place] lifts or holds trunk or limbs and provides more than half the effort. 0-Heqbrelve-egvjea does ALL the effort. Patient does none of the effort to complete the activity. Or, the assistance of 2 or more helpers is required for the patient to complete the activity. If activity was not attempted, code reason: 7-Patient Refused. 9-Not Applicable-not attempted and the patient did not perform the activity before the current illness, exacerbation or injury. 10-Not Attempted due to Environmental Limitations-(lack of equipment, weather restraints, etc.). 88-Not Attempted due to Medical Conditions or Safety Concerns. Sit to Lying (QC): 4 Lying to Sitting/Side of Bed(Q: 3 Sit to Stand (QC): 4 Pt completes sit to stand and sit to lying transfer /c CGA for safety due to strength and balance deficits. Completes lying to sitting transfer /c MIN assist for LE lowering and trunk lifting. Weight Bearing Right Lower Extremity: Right Weight Bearing/Tolerated Left Lower Extremity: Left Weight Bearing/Tolerated Gait Training Does the Patient Walk?: Yes Distance: 40 Walk 10 feet (QC): 4 Gait Persons Needed: 1 Gait Assistive Device: FWW Pt ambulates /c use of FWW and CGA for safety due to strength and balance deficits. Displays very slow gait cycle /c short step lengths. Ambulated 40 feet before requiring a seated rest break. Assessment Current Status: Fair Progress Pt completes sit to standing and sitting to lying transfer /c CGA. Lying to sitting transfer /c MIN LE and trunk lifting assistance. Ambulates /c use of a FWW and CGA. Pt able to ambulates up to 40 feet before requiring a seated rest break. Fatigue reported post-treatment. Continue to progress per POC to improve strength, endurance, and functional ability. PT Telephone Betting Clerk Goals Telephone Betting Clerk Goals PT Telephone Betting Clerk Goals Time Frame: Feb 06, 2023 Roll Left & Right (QC): 6 Sit to Lying (QC): 6 Lying-Sitting on Side/Bed(QC): 6 Sit to Stand (QC): 6 Walk 150 ft (QC): 6 PT Plan Treatment/Plan Treatment Plan: Continue Plan of Care Treatment Duration: Feb 06, 2023 Frequency: 5 times per week Estimated Hrs Per Day: .25 hour per day Patient and/or Family Agrees t: Yes Time Time In: 845 Time Out: 900 DATE: Feb 05, 2023 Total Billed Treatment Time: 15 Total Billed Treatment 1 visit GT x 1 JOEL LIMON PTA Feb 05, 2023 12:16
--- NOTE | 2023-02-05 14:31 | Progress Note ---
Subjective Subjective/Events-last exam Patient states that she is fatigued today. Did not sleep very well. She is working with PT. Tolerating PO diet. Review of Systems General: Fatigue, Malaise Pulmonary: No Dyspnea, No Cough Cardiovascular: Edema; No: Chest Pain, Palpitations Gastrointestinal: No: Nausea, Vomiting, Abdominal Pain, Diarrhea, Constipation Neurological: Weakness, Incoordination, Confusion Objective Exam Last Set of Vital Signs Vital Signs Date Time Temp Pulse Resp B/P (MAP) Pulse Ox O2 Delivery O2 Flow Rate FiO2 02/05/23 13:00 60 02/05/23 11:30 36.3 16 122/76 (91) 92 Room Air Capillary Refill : I&O Intake and Output 02/05/23 00:00 Intake Total 1450 ml Balance 1450 ml Intake Oral 1450 ml # Voids 9 # Bowel Movements 1 Daily Weight Change No General: Alert, No Acute Distress Lungs: Clear to Auscultation, Normal Air Movement Heart: Regular Rate, No Murmurs Abdomen: Normal Bowel Sounds, Soft, No Tenderness Extremities: Other (1+ pitting edema bilaterally) Neuro: Normal Speech (with confusion) Results/Procedures Lab Laboratory Tests 02/05/23 05:17: White Blood Count 10.2, Red Blood Count 4.14, Hemoglobin 12.6, Hematocrit 39, Mean Corpuscular Volume 95, Mean Corpuscular Hemoglobin 30, Mean Corpuscular Hemoglobin Concent 32, Red Cell Distribution Width 12.7, Platelet Count 199, Mean Platelet Volume 11.1, Immature Granulocyte % (Auto) 0, Neutrophils (%) (Auto) 69, Lymphocytes (%) (Auto) 24, Monocytes (%) (Auto) 4, Eosinophils (%) (Auto) 2, Basophils (%) (Auto) 1, Neutrophils # (Auto) 7.0, Lymphocytes # (Auto) 2.5, Monocytes # (Auto) 0.4, Eosinophils # (Auto) 0.2, Basophils # (Auto) 0.1, Immature Granulocyte # (Auto) 0.0, Sodium Level 136, Potassium Level 4.0, Chloride Level 102, Carbon Dioxide Level 25, Anion Gap 9, Blood Urea Nitrogen 12, Creatinine 0.78, Estimat Glomerular Filtration Rate 81, BUN/Creatinine Ratio 15, Glucose Level 109H, Calcium Level 9.4 Assessment/Plan Assessment/Plan (1) Weakness generalized Status: Acute Assessment & Plan: -PT/OT, recommended placement but patient and daughter would like for her to go home, will plan on HH 7: Continue to require assist x1, Would highly recommend SNF but patient and family not interested and would like for her to go home, She lives alone and neice lives in , Will need FWW at discharge (2) Unwitnessed fall Status: Acute Assessment & Plan: - No acute injuries (3) Dementia Status: Chronic Qualifiers: Qualified Codes: F03.A0 - Unspecified dementia, mild, without behavioral disturbance, psychotic disturbance, mood disturbance, and anxiety (4) Hypothyroidism Status: Chronic Assessment & Plan: - Continue home replacement Qualifiers: Qualified Codes: E03.9 - Hypothyroidism, unspecified (5) Major depressive disorder with psychotic features Status: Acute Assessment & Plan: - Restart home meds SAMIR BHATTI MD Feb 05, 2023 14:31
[2023-02-05 16:40] VITALS: BP 135/75
[2023-02-05 19:40] VITALS: BP 148/67
[2023-02-05 23:12] VITALS: BP 137/79
[2023-02-06 03:56] VITALS: BP 138/80
[2023-02-06] MEDS: CATHETER FLUSH 10 ML SYR IVP SCH ×3 (06:23→21:13)
[2023-02-06] MEDS: LEVOTHYROXINE 125 MCG (LEVOTHROID) TABLET PO SCH (06:23)
[2023-02-06 07:04] VITALS: BP 145/82
--- NOTE | 2023-02-06 08:41 | Physical Therapy Daily Note ---
PT Daily Note-Current Subjective Pt found seated in recliner upon entry. Pt refuses to ambulate this visit. Does agreed to therapeutic exercises. No pain reported. Pain Section J - Health Conditions 1. Rarely or not at all 2. Occasionally 3. Frequently 4. Almost constantly 8. Unable to answer Pain Effect on Sleep: 1 Pain Interference with Therapy: 1 Pain Interference w/Day-to-Day: 1 Mental Status Patient Orientation: Person Transfers SCALE: Activities may be completed with or without assistive devices. 1-Jfyetomruc-nssuyzo completes the activity by him/herself with no assistance from a helper. 5-Set-up or Clean-up Assistance-helper sets up or cleans up; patient completes activity. [place] assists only prior to or following the activity. 4-Supervision or Touching Assistance-helper provides verbal cues and/or touching/steadying and/or contact guard assistance as patient completes activity. Assistance may be provided throughout the activity or intermittently. 3-Partial/Moderate Assistance-helper does LESS THAN HALF the effort. [place] lifts, holds or supports trunk or limbs, but provides less than half the effort. 2-Substantial/Maximal Assistance-helper does MORE THAN HALF the effort. [place] lifts or holds trunk or limbs and provides more than half the effort. 4-Rkjvtcoja-jcafbf does ALL the effort. Patient does none of the effort to complete the activity. Or, the assistance of 2 or more helpers is required for the patient to complete the activity. If activity was not attempted, code reason: 7-Patient Refused. 9-Not Applicable-not attempted and the patient did not perform the activity before the current illness, exacerbation or injury. 10-Not Attempted due to Environmental Limitations-(lack of equipment, weather restraints, etc.). 88-Not Attempted due to Medical Conditions or Safety Concerns. Weight Bearing Right Lower Extremity: Right Weight Bearing/Tolerated Left Lower Extremity: Left Weight Bearing/Tolerated Gait Training Walk 10 feet (QC): 07 Treatments Seated Therapeutic Exercises (B): Ankle pumps x 15 Marching x 15 LAQs x 15 TA sets /c pillow x 15 Hip abd x 15 Hip add /c pillow x 15 Assessment Current Status: Poor Progress Pt refuses gait training this visit. Pt has difficulty following verbal cues and staying on task. During sets pt occasionally switches to previously completed exercises. Pt demonstrates lack of motivation /c PT treatment. Displays decent muscle strength and endurance /c completion of therapeutic exercises. Continue to progress per POC to improve strength, endurance, and functional ability. PT Mcfp Goals Telecommunications Network Planner Goals PT Telecommunications Network Planner Goals Time Frame: Feb 06, 2023 Roll Left & Right (QC): 6 Sit to Lying (QC): 6 Lying-Sitting on Side/Bed(QC): 6 Sit to Stand (QC): 6 Walk 150 ft (QC): 6 PT Plan Treatment/Plan Treatment Plan: Continue Plan of Care Treatment Duration: Feb 06, 2023 Frequency: 5 times per week Estimated Hrs Per Day: .25 hour per day Patient and/or Family Agrees t: Yes Time Time In: 820 Time Out: 832 DATE: Feb 06, 2023 Total Billed Treatment Time: 12 Total Billed Treatment 1 visit EX x 1 JOEL LIMON WORKDAY MANAGER Feb 06, 2023 08:41
--- NOTE | 2023-02-06 08:54 | Progress Note - Hospitalist ---
Subjective HPI/CC On Admission Date Seen by Provider: Feb 06, 2023 Time Seen by Provider: 11:00 Subjective/Events-last exam Doing well Awaiting placement No falls PT OT ordered Review of Systems General: Fatigue, Malaise Objective Exam Vital Signs Vital Signs Date Time Temp Pulse Resp B/P (MAP) Pulse Ox O2 Delivery O2 Flow Rate FiO2 02/07/23 03:54 36.0 62 16 116/74 (88) 95 Room Air Capillary Refill : General Appearance: No Apparent Distress, WD/WN, Chronically ill Respiratory: Lungs Clear, Normal Breath Sounds Cardiovascular: Regular Rate, Rhythm Neurologic/Psychiatric: Alert, Depressed Affect, Disoriented Results/Procedures Lab Patient resulted labs reviewed. Assessment/Plan Assessment and Plan Assess & Plan/Chief Complaint (1) Weakness generalized Status: Acute Assessment & Plan: -PT/OT, recommended placement but patient and daughter would like for her to go home, will plan on HH 02/05: Continue to require assist x1, Would highly recommend SNF but patient and family not interested and would like for her to go home, She lives alone and neice lives in , Will need FWW at discharge (2) Unwitnessed fall Status: Acute Assessment & Plan: - No acute injuries (3) Dementia Status: Chronic Qualifiers: Qualified Codes: F03.A0 - Unspecified dementia, mild, without behavioral disturbance, psychotic disturbance, mood disturbance, and anxiety (4) Hypothyroidism Status: Chronic Assessment & Plan: - Continue home replacement Qualifiers: Qualified Codes: E03.9 - Hypothyroidism, unspecified (5) Major depressive disorder with psychotic features Status: Acute Assessment & Plan: - Restart home meds KALEY MASTERSON DO Feb 06, 2023 08:54
[2023-02-06 11:20] VITALS: BP 132/72
[2023-02-06] MEDS: PANTOPRAZOLE 40 MG (PROTONIX) TAB PO SCH (11:51)
[2023-02-06] MEDS: FLUoxetine HCL 10 MG (PROzac) CAPSULE/TABLET PO SCH (11:51)
[2023-02-06] MEDS: FLUoxetine HCL 20 MG (PROzac) CAP PO SCH (11:52)
[2023-02-06 16:04] VITALS: BP 150/81
--- NOTE | 2023-02-06 16:32 | Occupational Therapy Eval ---
OT Evaluation-General/PLF Medical Diagnosis Admission Date Feb 04, 2023 at 01:50 Medical Diagnosis: Weakness; falls Onset Date: Feb 03, 2023 Therapy Diagnosis Therapy Diagnosis: weaknes, confusion, falls Precautions Precautions/Isolations: Standard Precautions Weight Bear Status Weight Bearing Restriction: Weight Bearing/Tolerated Referral Physician: Yojana Musa Referral Reason: Evaluation/Treatment Medical History Additional Medical History 2 yo F that lives at home alone. States that she has fallen a couple of times in the last few weeks and now having increased back pain. She denies hitting her head Reviewed History: Yes Social History Home: Apartment Current Living Status: Alone Entry Into Home: Elevator ADL-Prior Level of Function SCALE: Activities may be completed with or without assistive devices. 2-[id number]-[id number] completes the activity by him/herself with no assistance from a helper. 5-Set-up or Clean-up Assistance-helper sets up or cleans up; patient completes activity. Happy assists only prior to or following the activity. 4-Supervision or Touching Assistance-helper provides verbal cues and/or touching/steadying and/or contact guard assistance as patient completes activity. Assistance may be provided throughout the activity or intermittently. 3-Partial/Moderate Assistance-helper does LESS THAN HALF the effort. Happy lifts, holds or supports trunk or limbs, but provides less than half the effort. 2-Substantial/Maximal Assistance-helper does MORE THAN HALF the effort. Happy lifts or holds trunk or limbs and provides more than half the effort. 7-Oqbyhwrnf-zvedqm does ALL the effort. Patient does none of the effort to complete the activity. Or, the assistance of 2 or more helpers is required for the patient to complete the activity. If activity was not attempted, code reason: 7-Patient Refused. 9-Not Applicable-not attempted and the patient did not perform the activity before the current illness, exacerbation or injury. 10-Not Attempted due to Environmental Limitations-(lack of equipment, weather restraints, etc.). 88-Not Attempted due to Medical Conditions or Safety Concerns. Self Care: Independent Functional Cognition: Independent OT Current Status Subjective Agreeable to OT Mental Status/Objective Patient Orientation: Person, Place, Time, Situation Current Upper Extremity ROM WFLs Upper Extremity Strength -4/5 ADL-Treatment ADL-Current UP walking to bathroom on arrival w/o ADS, OT performed micaela hygiene sponge bathing, patient wanted to wear own clothing following toileting Telemetry hanging on shirt Eating (QC): 6 Oral Hygiene (QC): 5 Shower/Bathe Self (QC): 7 Upper Body Dressing (QC): 5 Lower Body Dressing (QC): 4 On/Off Footwear (QC): 4 Toileting Hygiene (QC): 4 Education OT Patient Education: Correct positioning, Modified ADL techniques, Progress toward Goal/Update tx plan, Purpose of tx/functional activities, Reviewed p recautions, Rehab process OT Nursing Home Goals Production Sound Mixer Goals Eating (QC): 6 Oral Hygiene (QC): 6 Toileting Hygiene (QC): 6 Shower/Bathe Self (QC): 6 Upper Body Dressing (QC): 6 Lower Body Dressing (QC): 6 On/Off Footwear (QC): 6 1=Demonstrate adherence to instructed precautions during ADL tasks. 2=Patient will verbalize/demonstrate understanding of assistive devices/modifications for ADL. 3=Patient will improve strength/tolerance for activity to enable patient to perform ADL's. OT Education/Plan Problem List/Assessment Assessment: Decreased Activ Tolerance, Decreased Safety Aware, Impaired Cognition, Impaired Coordination, Impaired Funct Balance, Impaired Self-Care Skills Discharge Recommendations Plan/Recommendations: Continue POC Therapy Discharge Recommendati: Post Acute OT Treatment Plan/Plan of Care Treatment,Training & Education: Yes Patient would benefit from OT for education, treatment and training to promote independence in ADL's, mobility, safety and/or upper extremity function for ADL's. Plan of Care: ADL Retraining, Concurrent Therapy, Functional Mobility, Group Exercise/Act as Ind, UE Funct Exercise/Act Treatment Duration: Feb 13, 2023 Frequency: 3 times per week (3-5 per week) Estimated Hrs Per Day: .25 hour per day Agreement: Yes Rehab Potential: Fair Time Start Time: 13:20 Stop Time: 13:50 DATE: Feb 06, 2023 Total Time Billed (hr/min): 30 Billed Treatment Time EVM, ADL 30 min MARCELO GREGORY OT Feb 06, 2023 16:32
--- NOTE | 2023-02-06 17:55 | Physician Query-Final Dx ---
CECILIA BARRETT 02/06/23 1755: Final Diagnosis Give Final Diagnosis Please give Final Diagnosis The medical record reflects the following clinical evidence: Clinical Indicators: Generalized weakness, multiple falls at home, inability to care for self Risk Factor(s): Elderly patient admitted with: dementia, hypothyroidism, unwitnessed fall, impaired mobility, obesity, Treatment: Neurologic assessments and testing, PT/OT, Age-related physical debility, present on admission Other explanation of clinical findings Unable to determine (no explanation for clinical findings) Please clarify and document your clinical opinion in the progress notes and discharge summary including the definitive and/or presumptive diagnosis, (suspected or probable), related to the above clinical findings. Please include clinical findings supporting your diagnosis. Cecilia Barrett, MSN, RN Clinical Research Consultant [phone] [email or web address] KALEY MASTERSON DO 02/06/236: Final Diagnosis Give Final Diagnosis Age-related physical debility, present on admission CECILIA BARRETT Feb 06, 2023 17:55 KALEY MASTERSON DO Feb 06, 2023 21:36
[2023-02-06 19:23] VITALS: BP 132/75
[2023-02-06] MEDS: ACETAMINOPHEN 500 MG TAB (TYLENOL) PO PRN (21:12)
[2023-02-06 23:20] VITALS: BP 104/65
[2023-02-07 03:54] VITALS: BP 116/74
[2023-02-07] MEDS: LEVOTHYROXINE 125 MCG (LEVOTHROID) TABLET PO SCH (05:22)
[2023-02-07] MEDS: CATHETER FLUSH 10 ML SYR IVP SCH ×3 (05:23→20:54)
--- NOTE | 2023-02-07 07:14 | Progress Note - Hospitalist ---
Subjective HPI/CC On Admission Date Seen by Provider: Feb 07, 2023 Time Seen by Provider: 11:00 Subjective/Events-last exam No major issues Has no complaints Bowels are moving We will remove Hep-Lock Review of Systems General: Fatigue, Malaise Neurological: Confusion Objective Exam Vital Signs Vital Signs Date Time Temp Pulse Resp B/P (MAP) Pulse Ox O2 Delivery O2 Flow Rate FiO2 02/07/23 20:39 Room Air 02/07/23 19:14 36.6 67 20 151/66 (94) 02/07/23 15:34 96 Capillary Refill : General Appearance: No Apparent Distress, WD/WN, Chronically ill Respiratory: Lungs Clear Cardiovascular: Regular Rate, Rhythm Neurologic/Psychiatric: Alert, Depressed Affect, Motor Weakness Results/Procedures Lab Patient resulted labs reviewed. Assessment/Plan Assessment and Plan Assess & Plan/Chief Complaint (1) Weakness generalized Status: Acute Assessment & Plan: -PT/OT, recommended placement but patient and daughter would like for her to go home, will plan on 02/05: Continue to require assist x1, Would highly recommend SNF but patient and family not interested and would like for her to go home, She lives alone and neice lives in , Will need FWW at discharge (2) Unwitnessed fall Status: Acute Assessment & Plan: - No acute injuries (3) Dementia Status: Chronic Qualifiers: Qualified Codes: F03.A0 - Unspecified dementia, mild, without behavioral disturbance, psychotic disturbance, mood disturbance, and anxiety (4) Hypothyroidism Status: Chronic Assessment & Plan: - Continue home replacement Qualifiers: Qualified Codes: E03.9 - Hypothyroidism, unspecified (5) Major depressive disorder with psychotic features Status: Acute Assessment & Plan: - Restart home meds KALEY MASTERSON DO Feb 07, 2023 07:14
[2023-02-07 07:50] VITALS: BP 129/65
[2023-02-07 11:30] VITALS: BP 129/59
[2023-02-07] MEDS: FLUoxetine HCL 10 MG (PROzac) CAPSULE/TABLET PO SCH (12:47)
[2023-02-07] MEDS: PANTOPRAZOLE 40 MG (PROTONIX) TAB PO SCH (12:47)
[2023-02-07] MEDS: FLUoxetine HCL 20 MG (PROzac) CAP PO SCH (12:47)
[2023-02-07 15:34] VITALS: BP 131/58
[2023-02-07 19:14] VITALS: BP 151/66
[2023-02-07] MEDS: ACETAMINOPHEN 500 MG TAB (TYLENOL) PO PRN (20:54)
[2023-02-07] MEDS: ENOXAPARIN 40 MG/0.4 ML (LOVENOX) SYR SC SCH (21:56)
[2023-02-07 23:37] VITALS: BP 129/61
[2023-02-08 03:03] VITALS: BP 136/63
[2023-02-08] MEDS: CATHETER FLUSH 10 ML SYR IVP SCH ×2 (06:06→11:18)
[2023-02-08] MEDS: LEVOTHYROXINE 125 MCG (LEVOTHROID) TABLET PO SCH (06:06)
--- NOTE | 2023-02-08 06:59 | Progress Note - Hospitalist ---
Subjective HPI/CC On Admission Date Seen by Provider: Feb 08, 2023 Time Seen by Provider: 11:00 Subjective/Events-last exam No major issues No complaints Constipation + ordered meds Objective Exam Vital Signs Vital Signs Date Time Temp Pulse Resp B/P (MAP) Pulse Ox O2 Delivery O2 Flow Rate FiO2 02/08/23 15:31 36.6 57 18 142/67 (92) 96 Room Air Capillary Refill : General Appearance: No Apparent Distress, WD/WN, Chronically ill Respiratory: Lungs Clear Results/Procedures Lab Patient resulted labs reviewed. Assessment/Plan Assessment and Plan Assess & Plan/Chief Complaint (1) Weakness generalized Status: Acute Assessment & Plan: -PT/OT, recommended placement but patient and daughter would like for her to go home, will plan on HH 7/: Continue to require assist x1, Would highly recommend SNF but patient and family not interested and would like for her to go home, She lives alone and neice lives in , Will need FWW at discharge (2) Unwitnessed fall Status: Acute Assessment & Plan: - No acute injuries (3) Dementia Status: Chronic Qualifiers: Qualified Codes: F03.A0 - Unspecified dementia, mild, without behavioral disturbance, psychotic disturbance, mood disturbance, and anxiety (4) Hypothyroidism Status: Chronic Assessment & Plan: - Continue home replacement Qualifiers: Qualified Codes: E03.9 - Hypothyroidism, unspecified (5) Major depressive disorder with psychotic features Status: Acute Assessment & Plan: - Restart home meds KALEY MATSERSON DO Feb 08, 2023 06:59
[2023-02-08 08:09] VITALS: BP 124/74
[2023-02-08] MEDS: ENOXAPARIN 40 MG/0.4 ML (LOVENOX) SYR SC SCH ×2 (08:21→20:17)
[2023-02-08 11:16] VITALS: BP 111/64
[2023-02-08] MEDS: FLUoxetine HCL 10 MG (PROzac) CAPSULE/TABLET PO SCH (11:17)
[2023-02-08] MEDS: PANTOPRAZOLE 40 MG (PROTONIX) TAB PO SCH (11:17)
[2023-02-08] MEDS: FLUoxetine HCL 20 MG (PROzac) CAP PO SCH (11:17)
[2023-02-08] MEDS ORDERED: LACTULOSE SYRUP 10GM/15ML (ENULOSE) 30ML UDC PO ONE (13:00)
[2023-02-08] MEDS ORDERED: SENNA W/DOCUSATE (SENOKOT S) TABLET PO ONE (13:00)
[2023-02-08 15:31] VITALS: BP 142/67
[2023-02-08 19:29] VITALS: BP 146/64
[2023-02-08] MEDS: ACETAMINOPHEN 500 MG TAB (TYLENOL) PO PRN (20:16)
[2023-02-08] MEDS: LACTULOSE SYRUP 10GM/15ML (ENULOSE) 30ML UDC PO SCH (20:17)
[2023-02-08 23:26] VITALS: BP 117/56
[2023-02-09] MEDS: LEVOTHYROXINE 125 MCG (LEVOTHROID) TABLET PO SCH (06:17)
[2023-02-09 07:36] VITALS: BP 142/65
[2023-02-09] MEDS: ENOXAPARIN 40 MG/0.4 ML (LOVENOX) SYR SC SCH (08:40)
[2023-02-09] MEDS: LACTULOSE SYRUP 10GM/15ML (ENULOSE) 30ML UDC PO SCH (08:40)
[2023-02-09] MEDS: ACETAMINOPHEN 500 MG TAB (TYLENOL) PO PRN (08:40)
--- NOTE | 2023-02-09 09:06 | Progress Note - Hospitalist ---
Subjective HPI/CC On Admission Date Seen by Provider: Feb 09, 2023 Objective Exam Vital Signs Vital Signs Date Time Temp Pulse Resp B/P (MAP) Pulse Ox O2 Delivery O2 Flow Rate FiO2 02/09/23 08:00 Room Air 02/09/23 07:36 36.0 53 16 142/65 (90) 97 Capillary Refill : Results/Procedures Lab Patient resulted labs reviewed. Assessment/Plan Assessment and Plan Assess & Plan/Chief Complaint (1) Weakness generalized Status: Acute Assessment & Plan: -PT/OT, recommended placement but patient and daughter would like for her to go home, will plan on HH 02/05: Continue to require assist x1, Would highly recommend SNF but patient and family not interested and would like for her to go home, She lives alone and neice lives in , Will need FWW at discharge (2) Unwitnessed fall Status: Acute Assessment & Plan: - No acute injuries (3) Dementia Status: Chronic Qualifiers: Qualified Codes: F03.A0 - Unspecified dementia, mild, without behavioral disturbance, psychotic disturbance, mood disturbance, and anxiety (4) Hypothyroidism Status: Chronic Assessment & Plan: - Continue home replacement Qualifiers: Qualified Codes: E03.9 - Hypothyroidism, unspecified (5) Major depressive disorder with psychotic features Status: Acute Assessment & Plan: - Restart home meds KALEY MASTERSON DO Feb 09, 2023 09:06
[2023-02-09] MEDS: FLUoxetine HCL 20 MG (PROzac) CAP PO SCH (10:31)
[2023-02-09] MEDS: FLUoxetine HCL 10 MG (PROzac) CAPSULE/TABLET PO SCH (10:31)
[2023-02-09] MEDS: PANTOPRAZOLE 40 MG (PROTONIX) TAB PO SCH (10:31)
[2023-02-09] MEDS ORDERED: FLUO20CA48 PO (10:33)
[2023-02-09] MEDS ORDERED: LEVO125T6 PO (10:33)
[2023-02-09] MEDS ORDERED: LIOT5TAB10 PO (10:33)
[2023-02-09] MEDS ORDERED: ENOX40DI8 SC (10:33)
[2023-02-09] MEDS ORDERED: LOVA40TA2 PO (10:33)
[2023-02-09] MEDS ORDERED: FLUO10CA33 PO (10:33)
[2023-02-09] MEDS ORDERED: LACT20SO2 PO (10:33)
[2023-02-09] MEDS ORDERED: TRZ50T PO (10:33)
[2023-02-09] MEDS ORDERED: LORA10TA7 PO (10:33)
[2023-02-09] MEDS ORDERED: DICY10CA12 PO (10:33)
[2023-02-09] MEDS ORDERED: ARIP2TAB20 PO (10:33)
[2023-02-09] MEDS ORDERED: OMEP40CA6 PO (10:33)
--- NOTE | 2023-02-09 10:34 | Discharge Inst-Skilled Nursing ---
Discharge Inst-Skilled NF Reconcile Patient Problems Problems Reviewed?: Yes Patient Instructions Patient Problems: Debility Goal: [place] Consult/Follow Up/Orders Skilled NF Admit to: [facility] Emergency Department Certification (SNF) I certify that SNF services are required to be given on an inpatient basis because of the above named patient's need for correction care on a continuing basis for the conditions(s) for which he/she was receiving inpatient hospital services prior to his/her transfer to the SNF. [facility] Facility Order: Nursing Services, Vba Developer-Evaluate & Treat, Physical Therapy-Evaluate & Treat, Speech Language-Evaluate & Treat Oxygen Delivery Method: Room Air Discharge Diet: No Restrictions Resuscitation Status: Full Code New & Resume Previous Orders New Medications: Enoxaparin Sodium (Enoxaparin Sodium) 40 Mg/0.4 Ml Syringe 40 MG SC BID, #60 SYRINGE Lactulose (Lactulose) 20 Gram/30 Ml Solution 10 GM PO BID, #30 EA Continued Medications: Aripiprazole (Aripiprazole) 2 Mg Tablet 2 MG PO HS, #30 TAB (This prescription has been renewed) Dicyclomine HCl (Dicyclomine HCl) 10 Mg Capsule 10 MG PO 1129,1999, #60 CAP (This prescription has been renewed) Fluoxetine HCl (Fluoxetine HCl) 10 Mg Capsule 10 MG PO 0, #30 CAP (This prescription has been renewed) TAKES 10MG +20MG TO EQUAL 30MG DAILY Fluoxetine HCl (Fluoxetine HCl) 20 Mg Capsule 20 MG PO 1130, #30 CAP (This prescription has been renewed) TAKES 10MG +20MG TO EQUAL 30MG DAILY Levothyroxine Sodium (Levothyroxine Sodium) 125 Mcg Tablet 125 MCG PO DAILY, #30 TAB (This prescription has been renewed) Liothyronine Sodium (Liothyronine Sodium) 5 Mcg Tablet 10 MCG PO DAILY, #30 TAB (This prescription has been renewed) TAKES 2 (5MCG) TABS Loratadine (Loratadine) 10 Mg Tablet 10 MG PO 1130, #30 TAB (This prescription has been renewed) Lovastatin (Lovastatin) 40 Mg Tablet 40 MG PO HS, #30 TAB (This prescription has been renewed) Omeprazole (Omeprazole) 40 Mg Capsule.dr 40 MG PO 1130, #30 CAP (This prescription has been renewed) Trazodone HCl (Trazodone HCl) 50 Mg Tablet 50 MG PO HS, #30 TAB (This prescription has been renewed) Verena Pierre Feb 09, 2023 10:33 VERENA PIERRE DO Feb 09, 2023 10:34
--- NOTE | 2023-02-09 10:34 | Discharge Summary ---
Discharge Summary Hospital Course Was the Problem List Reviewed?: Yes Problems/Dx: (1) Unwitnessed fall Status: Acute (2) Impaired mobility Status: Acute (3) Obesity Status: Acute (4) Hypothyroidism Status: Chronic Qualifiers: Qualified Codes: E03.9 - Hypothyroidism, unspecified (5) Dementia Status: Chronic Qualifiers: Qualified Codes: F03.A0 - Unspecified dementia, mild, without behavioral disturbance, psychotic disturbance, mood disturbance, and anxiety (6) Back pain Status: Acute (7) Weakness generalized Status: Acute Hospital Course Date of Admission: Feb 04, 2023 at 01:50 Admission Diagnosis : Family Physician/Provider: [place] [place] Date of Discharge: 02/09/23 Discharge Diagnosis: [ ] Hospital Course: Patient had an uneventful hospital course after she was admitted after a fall and could no longer live alone on her own. Labs remained stable. Vitals remained stable. DPOA and medical social worker Arrange for placement in a senior living. Labs and Pending Lab Test: Home Meds Active Lactulose 20 Gram/30 Ml Solution 10 Gm PO BID Enoxaparin Sodium 40 Mg/0.4 Ml Syringe 40 Mg SC BID Loratadine 10 Mg Tablet 10 Mg PO 1130 Omeprazole 40 Mg Capsule.dr 40 Mg PO 1130 Lovastatin 40 Mg Tablet 40 Mg PO HS Liothyronine Sodium 5 Mcg Tablet 10 Mcg PO DAILY TAKES 2 (5MCG) TABS Levothyroxine Sodium 125 Mcg Tablet 125 Mcg PO DAILY Aripiprazole 2 Mg Tablet 2 Mg PO HS Fluoxetine HCl 20 Mg Capsule 20 Mg PO 1129 TAKES 10MG +20MG TO EQUAL 30MG DAILY Fluoxetine HCl 10 Mg Capsule 10 Mg PO 1129 TAKES 10MG +20MG TO EQUAL 30MG DAILY Dicyclomine HCl 10 Mg Capsule 10 Mg PO Trazodone HCl 50 Mg Tablet 50 Mg PO HS Assessment/Pt Instructions PCP in 1 week Discharge Planning: <30 minutes discharge planning Discharge Instructions Discharge Diet: No Restrictions Discharge Physical Examination Vital Signs Vital Signs Date Time Temp Pulse Resp B/P (MAP) Pulse Ox O2 Delivery O2 Flow Rate FiO2 02/09/23 08:00 Room Air 02/09/23 07:36 36.0 53 16 142/65 (90) 97 General Appearance: No Apparent Distress, WD/WN, Chronically ill Respiratory: Lungs Clear, Normal Breath Sounds Allergies: Coded Allergies: Penicillins (Verified Adverse Reaction, Intermediate, Uticaria, 09/19/11) Discharge Summary Date of Admission Feb 04, 2023 at 01:50 Date of Discharge Discharge Date: Feb 09, 2023 Discharge Diagnosis (1) Weakness generalized Status: Acute Assessment & Plan: -PT/OT, recommended placement but patient and daughter would like for her to go home, will plan on HH 7/6: Continue to require assist x1, Would highly recommend SNF but patient and family not interested and would like for her to go home, She lives alone and neice lives in , Will need FWW at discharge (2) Unwitnessed fall Status: Acute Assessment & Plan: - No acute injuries (3) Dementia Status: Chronic Qualifiers: Qualified Codes: F03.A0 - Unspecified dementia, mild, without behavioral disturbance, psychotic disturbance, mood disturbance, and anxiety (4) Hypothyroidism Status: Chronic Assessment & Plan: - Continue home replacement Qualifiers: Qualified Codes: E03.9 - Hypothyroidism, unspecified (5) Major depressive disorder with psychotic features Status: Acute Assessment & Plan: - Restart home meds KALEY MASTERSON DO Feb 09, 2023 10:34
[2023-02-09 15:20] VITALS: BP 126/68
== END 2023-02-09 15:56 | DRG 884 ==
LOC: EDUNIT# 23:42 → ER 23:43 → 4TH 02-04 01:50
PROVIDERS: ADMIT Family Medicine; ATTEND Family Medicine
DX: F03.90 Unspecified dementia, unspecified severity, without behavioral disturbance, psychotic disturbance, mood disturbance, and anxiety (principal); Z68.41 Body mass index [BMI] 40.0-44.9, adult; F32.3 Major depressive disorder, single episode, severe with psychotic features; R47.01 Aphasia; Z91.81 History of falling; E66.9 Obesity, unspecified; E03.9 Hypothyroidism, unspecified; E78.00 Pure hypercholesterolemia, unspecified; G51.0 Bell's palsy; R47.1 Dysarthria and anarthria; M19.90 Unspecified osteoarthritis, unspecified site; H91.93 Unspecified hearing loss, bilateral; Z97.4 Presence of external hearing-aid; Z79.899 Other long term (current) drug therapy; Z88.0 Allergy status to penicillin
CPT/HCPCS: 36415; 51701; 70450; 71045; 72125; 72128; 72131; 72170; 80048; 80053; 81000; 83735; 84439; 84443; 84484; 85025; 85610; 85730; 93005